=== PATIENT | male | born 1965 | race African-American/Black ===

== ENCOUNTER 2019-07-03 10:03 | Inpatient (IN) | payer MEDICARE, MEDICAID ==
[~2019-07-03] VITALS: Ht 167.6 cm; Wt 86.2 kg
--- NOTE | 2019-07-03 10:06 | NUR ---
ED Nurse Note: Pt arrived with RA 27. pt picked up from tian singh. pt c/o sternal CP radiating to left neck and right shoulder. pt was given of ASA en route and Nitro.
[2019-07-03 10:08] VITALS: BP 122/93
[2019-07-03] MEDS ORDERED: HYDROCHLOROTH12.5 MG ORAL (10:46)
[2019-07-03] MEDS ORDERED: FUROSEMIDE20 M1 ORAL (10:46)
--- NOTE | 2019-07-03 11:01 | Emergency Room Report ---
History of Present Illness General Chief Complaint: Chest Pain Source: Patient Present Illness HPI Patient presents with complaints of midsternal chest pain he was at the bus stop when the pain started Pain radiates to the neck bilaterally denies any shortness of breath denies any pleurisy Patient has had multiple hospitalizations for CHF and he does feel short of breath as well Denies any flank pain denies any recent travel denies any fevers or chills Allergies: Coded Allergies: SIMVASTATIN (Verified Allergy, Unknown, 07/03/19) Patient History Past Medical History: see triage record Reviewed Nursing Documentation: PMH: Agreed; PSxH: Agreed Nursing Documentation-PM Past Medical History: No History, Except For Hx Hypertension: Yes Hx COPD: Yes Review of Systems All Other Systems: negative except mentioned in HPI Physical Exam Vital Signs Date Time Temp Pulse Resp B/P (MAP) Pulse Ox O2 Delivery O2 Flow Rate FiO2 07/03/19 10:04 98.1 104 16 122/93 (103) 98 Room Air Sp02 EP Interpretation: reviewed, normal General Appearance: well appearing - Patient appears mildly short of breath Head: normocephalic, atraumatic Eyes: bilateral eye PERRL, bilateral eye EOMI ENT: hearing grossly normal, EOM grossly intact Neck: supple Respiratory: no retraction, no accessory muscle use, crackles - Bilaterally Cardiovascular #1: regular rate, rhythm Gastrointestinal: non tender, soft Musculoskeletal: normal inspection Neurologic: alert, oriented x3 Psychiatric: normal inspection Skin: other - Significant dependent edema bilaterally Lymphatic: no adenopathy Medical Decision Making Diagnostic Impression: Primary Impression: CHF (congestive heart failure) ER Course Patient is a fairly complex patient with multiple differential to consideration including but not limited to cardiac cardiopulmonary and vascular emergencies Patient's x-ray shows evidence of congestion and cardiomegaly further diuretics are provided Patient remains chest pain-free at this time however given the clinical exam discomfort in appearance And overall evaluation will require further inpatient care Labs Test 07/03/19 10:55 07/03/19 12:56 07/03/19 20:53 07/05/19 03:50 White Blood Count 5.7 K/UL (4.8-10.8) 4.8 K/UL (4.8-10.8) Red Blood Count 3.35 M/UL (4.70-6.10) 3.26 M/UL (4.70-6.10) Hemoglobin 10.6 G/DL (14.2-18.0) 10.4 G/DL (14.2-18.0) Hematocrit 32.6 % (42.0-52.0) 31.4 % (42.0-52.0) Mean Corpuscular Volume 97 FL (80-99) 96 FL (80-99) Mean Corpuscular Hemoglobin 31.7 PG (27.0-31.0) 31.7 PG (27.0-31.0) Mean Corpuscular Hemoglobin Concent 32.6 G/DL (32.0-36.0) 33.0 G/DL (32.0-36.0) Red Cell Distribution Width 14.6 % (11.6-14.8) 14.5 % (11.6-14.8) Platelet Count 122 K/UL (150-450) 114 K/UL (150-450) Mean Platelet Volume 8.6 FL (6.5-10.1) 7.5 FL (6.5-10.1) Neutrophils (%) (Auto) 67.7 % (45.0-75.0) 61.4 % (45.0-75.0) Lymphocytes (%) (Auto) 16.3 % (20.0-45.0) 24.0 % (20.0-45.0) Monocytes (%) (Auto) 12.0 % (1.0-10.0) 10.6 % (1.0-10.0) Eosinophils (%) (Auto) 2.1 % (0.0-3.0) 2.8 % (0.0-3.0) Basophils (%) (Auto) 1.9 % (0.0-2.0) 1.2 % (0.0-2.0) Sodium Level 141 MMOL/L (136-145) 141 MMOL/L (136-145) Potassium Level 3.8 MMOL/L (3.5-5.1) 4.2 MMOL/L (3.5-5.1) Chloride Level 103 MMOL/L (98-107) 103 MMOL/L (98-107) Carbon Dioxide Level 28 MMOL/L (21-32) 30 MMOL/L (21-32) Anion Gap 10 mmol/L (5-15) 8 mmol/L (5-15) Blood Urea Nitrogen 24 mg/dL (7-18) 24 mg/dL (7-18) Creatinine 1.5 MG/DL (0.55-1.30) 1.5 MG/DL (0.55-1.30) Estimat Glomerular Filtration Rate 59.5 mL/min (>60) 59.5 mL/min (>60) Glucose Level 144 MG/DL (74-106) 114 MG/DL (74-106) Calcium Level 8.2 MG/DL (8.5-10.1) 8.7 MG/DL (8.5-10.1) Total Bilirubin 0.4 MG/DL (0.2-1.0) Aspartate Amino Transf (AST/SGOT) 35 U/L (15-37) Alanine Aminotransferase (ALT/SGPT) 24 U/L (12-78) Alkaline Phosphatase 92 U/L (46-116) Total Creatine Kinase 296 U/L (26-308) Troponin I 0.032 ng/mL (0.000-0.056) 0.044 ng/mL (0.000-0.056) Pro-B-Type Natriuretic Peptide 3309 pg/mL (0-125) 2105 pg/mL (0-125) Total Protein 7.4 G/DL (6.4-8.2) Albumin 3.2 G/DL (3.4-5.0) Globulin 4.2 g/dL Albumin/Globulin Ratio 0.8 (1.0-2.7) Lipase 163 U/L (73-393) Urine Opiates Screen Negative (NEGATIVE) Urine Barbiturates Screen Negative (NEGATIVE) Phencyclidine (PCP) Screen Negative (NEGATIVE) Urine Amphetamines Screen Negative (NEGATIVE) Urine Benzodiazepines Screen Negative (NEGATIVE) Urine Cocaine Screen Negative (NEGATIVE) Urine Marijuana (THC) Screen Negative (NEGATIVE) Test 07/05/19 11:15 Hemoglobin A1c 6.6 % (4.3-6.0) Uric Acid 9.7 MG/DL (2.6-7.2) Phosphorus Level 3.9 MG/DL (2.5-4.9) Magnesium Level 1.5 MG/DL (1.8-2.4) Gamma Glutamyl Transpeptidase 62 U/L (5-85) C-Reactive Protein, Quantitative 1.5 mg/dL (0.00-0.90) Pro-B-Type Natriuretic Peptide 2106 pg/mL (0-125) Triglycerides Level 17 MG/DL (30-150) Cholesterol Level 141 MG/DL (< 200) LDL Cholesterol 81 mg/dL (<100) HDL Cholesterol 57 MG/DL (40-60) Cholesterol/HDL Ratio 2.5 (3.3-4.4) Vitamin B12 Level 838 PG/ML (193-986) Folate 16.2 NG/ML (8.6-58.9) Thyroid Stimulating Hormone (TSH) 2.919 uiU/mL (0.358-3.740) EKG Diagnostic Results Rate: normal Rhythm: NSR ST Segments: other - Nonspecific ST and T wave changes Rhythm Strip Diag. Results EP Interpretation: yes Rate: 88 Rhythm: NSR, no PVC's, no ectopy Chest X-Ray Diagnostic Results Chest X-Ray Diagnostic Results : Chest X-Ray Ordered: Yes # of Views/Limited/Complete: 1 View Indication: Chest Pain EP Interpretation: Yes Interpretation: no consolidation, no effusion, no pneumothorax, other - Cardiomegaly pulmonary congestion Impression: Other - Acute CHF Electronically Signed by: Felisa Sharif DO Last Vital Signs Date Time Temp Pulse Resp B/P (MAP) Pulse Ox O2 Delivery O2 Flow Rate FiO2 07/03/19 10:08 104 16 Room Air 07/03/19 10:08 98.1 122/93 98 Status: improved Disposition: ADMITTED INPATIENT Condition: Serious Felisa Sharif DO Jul 03, 2019 11:01
[2019-07-03 11:30] LABS: BASOPHILS % (AUTO) 1.9 % (0.0-2.0); EOSINOPHILS % (AUTO) 2.1 % (0.0-3.0); HEMATOCRIT 32.6 % (42.0-52.0); HEMOGLOBIN 10.6 G/DL (14.2-18.0); LYMPHOCYTES % (AUTO) 16.3 % (20.0-45.0); MEAN CORPUSCULAR VOLUME 97 FL (80-99); NEUTROPHILS % (AUTO) 67.7 % (45.0-75.0); PLATELET COUNT 122 K/UL (150-450); RED BLOOD COUNT 3.35 M/UL (4.70-6.10); RED CELL DISTRIBUTION WIDTH 14.6 % (11.6-14.8); WHITE BLOOD COUNT 5.7 K/UL (4.8-10.8)
[2019-07-03] MEDS ORDERED: Morphine Sulfate 2mg/ml Inj(IV/IM USE ONLY) IVP ONE (11:30)
--- NOTE | 2019-07-03 11:30 | NUR ---
ED Nurse Note: PT GIVEN URINAL BOTTLE
[2019-07-03 11:38] LABS: ANION GAP 10 mmol/L (5-15); BLOOD UREA NITROGEN 24 mg/dL (7-18); CALCIUM 8.2 MG/DL (8.5-10.1); CARBON DIOXIDE 28 MMOL/L (21-32); CHLORIDE 103 MMOL/L (98-107); CREATININE 1.5 MG/DL (0.55-1.30); POTASSIUM 3.8 MMOL/L (3.5-5.1); SODIUM 141 MMOL/L (136-145)
[2019-07-03 11:47] LABS: ALANINE AMINOTRANSFERASE 24 U/L (12-78); ALBUMIN 3.2 G/DL (3.4-5.0); ALBUMIN/GLOBULIN RATIO 0.8 (1.0-2.7); ALKALINE PHOSPHATASE 92 U/L (46-116); ASPARTATE AMINO TRANSFERASE 35 U/L (15-37); BILIRUBIN,TOTAL 0.4 MG/DL (0.2-1.0); CREATINE KINASE 296 U/L (26-308)
[2019-07-03 12:20] VITALS: BP 111/80
--- NOTE | 2019-07-03 13:01 | NUR ---
ED Nurse Note: urine sent to lab
--- NOTE | 2019-07-03 13:01 | NUR ---
Elena montejo in EDM - 07/03/19 at 1301 by YOEL ED Nurse Note: urine sent to lab
[2019-07-03 13:11] VITALS: BP 106/73
--- NOTE | 2019-07-03 13:40 | NUR ---
ED Nurse Note: PT RESTING IN BED COMFORTBALY; PT ON HIS PHONE LISTENING TO MUSIC WITH HEAD PHONES
--- NOTE | 2019-07-03 15:00 | NUR ---
ED Nurse Note: Pt in bed asleep, pt appears comfortable. vss. nad noted
--- NOTE | 2019-07-03 15:09 | Diagnostic Imaging Report ---
Indication: Chest pain Technique: One view of the chest Comparison: 06/18/2014 Findings: The heart is markedly enlarged, more so than on the prior study. There is borderline pulmonary venous congestion. No dc pulmonary edema. A band of atelectasis is seen in the left midlung. No definite effusions. Impression: Marked cardiomegaly Borderline pulmonary venous congestion
[2019-07-03] MEDS ORDERED: Morphine Sulfate 4mg/ml Inj (IV USE ONLY) ONE (15:34)
[2019-07-03] MEDS ORDERED: Morphine Sulfate 4mg/ml Inj (IV USE ONLY) IVP ONE (15:45)
[2019-07-03 16:12] VITALS: BP 105/80
--- NOTE | 2019-07-03 17:40 | NUR ---
NURSE NOTES: Received telephone report from Dorita RINALDI.
--- NOTE | 2019-07-03 17:41 | NUR ---
ED Nurse Note: telephone report given to tiesha rn for continuity of care
--- NOTE | 2019-07-03 18:15 | NUR ---
TRANSFER TO FLOOR: Patient transferred to TELE OVER FLOW as ordered, per ERMD ORDER . Report given to GENTRY SILVA. Belongings and medications given to GENTRY SILVA.
--- NOTE | 2019-07-03 19:15 | NUR ---
NURSE NOTES: received pt from GENTRY Gann. pt is observed sitting on edge of bed, AO X4, c/o chest pain at this time. will contact MD regarding chest pain. pt is on room air, no s/sx of respiratory distress noted. correspondence transcriber shows SR with 98. urinal at bedside. pitting edema noted on bilateral lower extremities. RFA 18 g IV site is patent and intact, asymptomatic. bed in lowest position and brakes engaged, siderails up X2, call light within reach. will continue to monitor.
--- NOTE | 2019-07-03 19:16 | NUR ---
HAND-OFF: Report given to Renae RINALDI. Pt. remain stable.
--- NOTE | 2019-07-03 19:18 | NUR ---
NURSE NOTES: Called Dr. Blair regarding pt. requesting Morphine for his CP. Left message awaiting for response.
--- NOTE | 2019-07-03 19:50 | NUR ---
NURSE NOTES: left message for Dr. Fitzpatrick regarding pt's complaint of chest pain. awaiting call back.
[2019-07-03 20:00] VITALS: BP 137/83
--- NOTE | 2019-07-03 20:10 | NUR ---
NURSE NOTES: received orders from Dr. Fitzpatrick; will carry out.
--- NOTE | 2019-07-03 20:36 | Cardiology Progress Note ---
Assessment/Plan Assessment/Plan The patient is seen and examined, full consult note will dictated. Objective Last 24 Hour Vital Signs Date Time Temp Pulse Resp B/P (MAP) Pulse Ox O2 Delivery O2 Flow Rate FiO2 07/03/19 18:48 101 07/03/19 18:36 Room Air 07/03/19 18:24 98.3 84 21 106/61 100 Room Air 07/03/19 16:12 98.3 95 25 105/80 99 Room Air 07/03/19 16:04 98.3 07/03/19 13:11 98.3 106 22 106/73 99 Room Air 07/03/19 12:20 98.1 88 16 111/80 100 Room Air 07/03/19 11:51 98.1 07/03/19 10:08 104 16 Room Air 07/03/19 10:08 98.1 104 16 122/93 98 Room Air 07/03/19 10:04 98.1 104 16 122/93 (103) 98 Room Air Laboratory Tests Test 07/03/19 10:55 07/03/19 12:56 White Blood Count 5.7 K/UL (4.8-10.8) Red Blood Count 3.35 M/UL (4.70-6.10) L Hemoglobin 10.6 G/DL (14.2-18.0) L Hematocrit 32.6 % (42.0-52.0) L Mean Corpuscular Volume 97 FL (80-99) Mean Corpuscular Hemoglobin 31.7 PG (27.0-31.0) H Mean Corpuscular Hemoglobin Concent 32.6 G/DL (32.0-36.0) Red Cell Distribution Width 14.6 % (11.6-14.8) Platelet Count 122 K/UL (150-450) L Mean Platelet Volume 8.6 FL (6.5-10.1) Neutrophils (%) (Auto) 67.7 % (45.0-75.0) Lymphocytes (%) (Auto) 16.3 % (20.0-45.0) L Monocytes (%) (Auto) 12.0 % (1.0-10.0) H Eosinophils (%) (Auto) 2.1 % (0.0-3.0) Basophils (%) (Auto) 1.9 % (0.0-2.0) Sodium Level 141 MMOL/L (136-145) Potassium Level 3.8 MMOL/L (3.5-5.1) Chloride Level 103 MMOL/L (98-107) Carbon Dioxide Level 28 MMOL/L (21-32) Anion Gap 10 mmol/L (5-15) Blood Urea Nitrogen 24 mg/dL (7-18) H Creatinine 1.5 MG/DL (0.55-1.30) H Estimat Glomerular Filtration Rate 59.5 mL/min (>60) Glucose Level 144 MG/DL (74-106) H Calcium Level 8.2 MG/DL (8.5-10.1) L Total Bilirubin 0.4 MG/DL (0.2-1.0) Aspartate Amino Transf (AST/SGOT) 35 U/L (15-37) Alanine Aminotransferase (ALT/SGPT) 24 U/L (12-78) Alkaline Phosphatase 92 U/L (46-116) Total Creatine Kinase 296 U/L (26-308) Troponin I 0.032 ng/mL (0.000-0.056) Pro-B-Type Natriuretic Peptide 3309 pg/mL (0-125) H Total Protein 7.4 G/DL (6.4-8.2) Albumin 3.2 G/DL (3.4-5.0) L Globulin 4.2 g/dL Albumin/Globulin Ratio 0.8 (1.0-2.7) L Lipase 163 U/L (73-393) Urine Opiates Screen Negative (NEGATIVE) Urine Barbiturates Screen Negative (NEGATIVE) Phencyclidine (PCP) Screen Negative (NEGATIVE) Urine Amphetamines Screen Negative (NEGATIVE) Urine Benzodiazepines Screen Negative (NEGATIVE) Urine Cocaine Screen Negative (NEGATIVE) Urine Marijuana (THC) Screen Negative (NEGATIVE) Spenser Fitzpatrick MD Jul 03, 2019 20:36
--- NOTE | 2019-07-03 20:45 | NUR ---
NURSE NOTES: Dr. Fitzpatrick at bedside; reported pt's complaint of chest pain.
--- NOTE | 2019-07-03 22:00 | NUR ---
NURSE NOTES: informed Dr. Fitzpatrick of pt's current troponin level of 0.044. awaiting call back.
--- NOTE | 2019-07-03 22:04 | NUR ---
NURSE NOTES: called and left message for Dr. Renteria regarding pt's complaint of leg pain. awaiting call back.
--- NOTE | 2019-07-03 22:24 | NUR ---
NURSE NOTES: left follow up message for Dr. Renteria regarding pt's complaint of leg pain. awaiting call back.
--- NOTE | 2019-07-03 22:58 | NUR ---
NURSE NOTES: received call back with new orders from Dr. Renteria. will carry out.
[2019-07-03] MEDS: Morphine Sulfate 2mg/ml Inj(IV/IM USE ONLY) IVP PRN (23:47)
[2019-07-04] VITALS: BP 120/76
--- NOTE | 2019-07-04 00:30 | NUR ---
NURSE NOTES: pt advised to remain in bed d/t administration of morphine as ordered per MD. pt remains non-compliant, and continues to sit at edge of bed. placed bedside table by edge of bed. bed remains in lowest position and locked, siderails up X3, call light within reach. will continue to monitor closely.
--- NOTE | 2019-07-04 00:40 | NUR ---
NURSE NOTES: Dr. Fitzpatrick aware of pt's current troponin level. no new orders given at this time. will continue to monitor.
[2019-07-04 04:00] VITALS: BP 118/77
--- NOTE | 2019-07-04 06:30 | History and Physical Report ---
DATE OF ADMISSION: 07/03/2019 HISTORY OF PRESENT ILLNESS: The patient is being admitted for chest pain, rule out pulmonary edema, congestion, and cardiomegaly on the chest x-ray, borderline elevated troponin. The patient has been complaining of chest pain for one day, admitted for CHF exacerbation, possibly. The patient also complains of neck pain, headache, and pain all over. The patient complains of shortness of breath . The patient states that he has Graves disease. PAST MEDICAL HISTORY: Graves disease, CHF, history of hypertension, history of arthritis, and history of hyperlipidemia. ALLERGIES: To simvastatin. PAST SURGICAL HISTORY: Eye surgery and sinus surgery. SOCIAL HISTORY: History of smoking. History of marijuana use. Denies history of alcohol abuse. MEDICATIONS: Lasix. FAMILY HISTORY: Noncontributory. REVIEW OF SYSTEMS: HEENT: Reports headaches. RESPIRATORY: Reports shortness of breath. Denies cough. CARDIOVASCULAR: Reports chest pain for one day. No radiation. No orthopnea. GASTROINTESTINAL: Denies nausea, vomiting, or diarrhea. EXTREMITIES: Reports pain all over. CENTRAL NERVOUS SYSTEM: Denies change in speech pattern. Feels weak. PHYSICAL EXAMINATION: VITAL SIGNS: Temperature is 98.3, pulse is 95, and blood pressure is 105/80. HEENT: PERRLA. NECK: Supple. No lymphadenopathy. CHEST: Clear to auscultation. The patient has conjunctivae. CARDIOVASCULAR: Regular rate and rhythm. No murmurs or extra sounds. GASTROINTESTINAL: Soft, nontender, nondistended. No organomegaly. EXTREMITIES: No edema. Moves all four extremities. NEUROLOGIC: Sensory intact to touch. Reflexes equal on both sides. LABORATORY DATA: WBC of 5.7, hemoglobin 10.6, and platelets 122,000. Sodium 141, potassium 3.8, BUN of 24, creatinine of 0.5, glucose of 144. Troponin of 0.032. ASSESSMENT AND PLAN: 1. Chest pain. 2. CHF. 3. Azotemia. 4. Borderline elevated troponin. 5. Congestion and cardiomegaly on the chest examination, rule out pulmonary edema, CHF exacerbation. I have basically consulted Dr. Renteria, Dr. Cody, Dr. Baca, and Dr. Fitzpatrick to help with the fluid management as well as for CHF management as well as for management of the chest pain, rule out acute coronary syndrome. Pain management per Dr. Renteria. Felisa Blair M.D. DR: KIMBERLEY JOB#: [id number] CC:
--- NOTE | 2019-07-04 07:08 | NUR ---
NURSE NOTES: RECEIVED BED SIDE REPORT FROM PADMINI RINALDI STAFF OF [employer]. PT C/O,S OF BILAT LOWER EXT,S PAIN. PT RATING 7/10 BILATERALLY LOWER LEG PAIN.PADMINI RINALDI MEDICATED THE PT WITH MORPHINE SULFATE 2MG IVP PER M.D ORDERS.FULL BODY ASSESSMENT DONE.PT USING O2 @ 2L/MINTS VIA N/C,O2 SAT 98%. WILL CONT TO MONITOR.
[2019-07-04] MEDS: Morphine Sulfate 2mg/ml Inj(IV/IM USE ONLY) IVP PRN (07:13)
--- NOTE | 2019-07-04 07:38 | NUR ---
HAND-OFF: Report given to Elle Holm RN. pt is in stable condition.
[2019-07-04 08:00] VITALS: BP 119/81
[2019-07-04] MEDS: Spironolactone 25mg tab ORAL SCH (09:31)
--- NOTE | 2019-07-04 09:46 | Consultation ---
History of Present Illness General Date patient seen: Jul 04, 2019 Time patient seen: 09:15 - am Chief Complaint: B/L LE pain Referring physician: Johnnie Reason for Consultation: Pain Management Present Illness HPI Patient reports that he has been having leg pain for many years and has a medical history of CHF and swelling in his legs c/o numbness and tingling in his legs for the last 2 years it is a 8/10 pain at this time. Was started on Morphine 2mg IV Q4H PRN. We were consulted so patient has adequate pain control while here in the hospital. Allergies: Coded Allergies: SIMVASTATIN (Verified Allergy, Unknown, 07/03/19) Medication History Scheduled Furosemide* (Lasix*), Unknown Dose ORAL DAILY, (Reported) Hydrochlorothiazide* (Hydrochlorothiazide*), Unknown Dose ORAL DAILY, (Reported) Patient History Healthcare decision maker N Resuscitation status Full Code Advanced Directive on File Past Medical/Surgical History Past Medical/Surgical History: (1) SOB (shortness of breath) (2) HTN (hypertension) (3) CHF (congestive heart failure) (4) Pneumonia (5) Acute respiratory failure Review of Systems Constitutional: Reports: weakness Eye: Reports: no symptoms ENT: Reports: no symptoms Respiratory: Reports: no symptoms Cardiovascular: Reports: no symptoms Gastrointestinal: Reports: no symptoms Genitourinary: Reports: no symptoms Musculoskeletal: Reports: no symptoms Skin: Reports: no symptoms Psychiatric: Reports: no symptoms Neurological: Reports: no symptoms Endocrine: Reports: no symptoms Hematologic/Lymphatic: Reports: no symptoms Physical Exam General Appearance: no apparent distress, alert HEENT: normocephalic, PERRL, EOMI Neck: non-tender, supple Respiratory/Chest: decreased breath sounds Cardiovascular/Chest: regularly irregular Abdomen: non tender, soft Extremities: moderate edema Skin Exam: warm/dry Neurologic: alert, oriented x 3 Last 24 Hour Vital Signs Date Time Temp Pulse Resp B/P (MAP) Pulse Ox O2 Delivery O2 Flow Rate FiO2 07/04/19 09:31 103 119/81 07/04/19 08:00 103 07/04/19 08:00 97.7 95 20 119/81 (94) 98 95 07/04/19 08:00 2.0 07/04/19 07:43 97.8 07/04/19 04:00 97.8 93 20 118/77 (91) 100 07/04/19 04:00 97 07/04/19 04:00 2.0 07/04/19 00:00 98.4 94 20 120/76 (91) 100 07/03/19 23:32 103 07/03/19 21:01 93 137/83 07/03/19 21:00 2.0 07/03/19 21:00 Nasal Cannula 2.0 07/03/19 20:00 93 07/03/19 20:00 97.5 98 137/83 (101) 07/03/19 18:48 101 07/03/19 18:36 Room Air 07/03/19 18:24 98.3 84 21 106/61 100 Room Air 07/03/19 16:12 98.3 95 25 105/80 99 Room Air 07/03/19 16:04 98.3 07/03/19 13:11 98.3 106 22 106/73 99 Room Air 07/03/19 12:20 98.1 88 16 111/80 100 Room Air 07/03/19 11:51 98.1 07/03/19 10:08 104 16 Room Air 07/03/19 10:08 98.1 104 16 122/93 98 Room Air 07/03/19 10:04 98.1 104 16 122/93 (103) 98 Room Air Intake and Output 07/03/19 07/04/19 19:00 07:00 Intake Total 720 ml Output Total 0 ml 350 ml Balance 0 ml 370 ml Intake Oral 720 ml Output Urine Total 0 ml 350 ml Laboratory Tests Test 07/03/19 10:55 07/03/19 12:56 07/03/19 20:53 White Blood Count 5.7 K/UL (4.8-10.8) Red Blood Count 3.35 M/UL (4.70-6.10) L Hemoglobin 10.6 G/DL (14.2-18.0) L Hematocrit 32.6 % (42.0-52.0) L Mean Corpuscular Volume 97 FL (80-99) Mean Corpuscular Hemoglobin 31.7 PG (27.0-31.0) H Mean Corpuscular Hemoglobin Concent 32.6 G/DL (32.0-36.0) Red Cell Distribution Width 14.6 % (11.6-14.8) Platelet Count 122 K/UL (150-450) L Mean Platelet Volume 8.6 FL (6.5-10.1) Neutrophils (%) (Auto) 67.7 % (45.0-75.0) Lymphocytes (%) (Auto) 16.3 % (20.0-45.0) L Monocytes (%) (Auto) 12.0 % (1.0-10.0) H Eosinophils (%) (Auto) 2.1 % (0.0-3.0) Basophils (%) (Auto) 1.9 % (0.0-2.0) Sodium Level 141 MMOL/L (136-145) Potassium Level 3.8 MMOL/L (3.5-5.1) Chloride Level 103 MMOL/L (98-107) Carbon Dioxide Level 28 MMOL/L (21-32) Anion Gap 10 mmol/L (5-15) Blood Urea Nitrogen 24 mg/dL (7-18) H Creatinine 1.5 MG/DL (0.55-1.30) H Estimat Glomerular Filtration Rate 59.5 mL/min (>60) Glucose Level 144 MG/DL (74-106) H Calcium Level 8.2 MG/DL (8.5-10.1) L Total Bilirubin 0.4 MG/DL (0.2-1.0) Aspartate Amino Transf (AST/SGOT) 35 U/L (15-37) Alanine Aminotransferase (ALT/SGPT) 24 U/L (12-78) Alkaline Phosphatase 92 U/L (46-116) Total Creatine Kinase 296 U/L (26-308) Troponin I 0.032 ng/mL (0.000-0.056) 0.044 ng/mL (0.000-0.056) Pro-B-Type Natriuretic Peptide 3309 pg/mL (0-125) H Total Protein 7.4 G/DL (6.4-8.2) Albumin 3.2 G/DL (3.4-5.0) L Globulin 4.2 g/dL Albumin/Globulin Ratio 0.8 (1.0-2.7) L Lipase 163 U/L (73-393) Urine Opiates Screen Negative (NEGATIVE) Urine Barbiturates Screen Negative (NEGATIVE) Phencyclidine (PCP) Screen Negative (NEGATIVE) Urine Amphetamines Screen Negative (NEGATIVE) Urine Benzodiazepines Screen Negative (NEGATIVE) Urine Cocaine Screen Negative (NEGATIVE) Urine Marijuana (THC) Screen Negative (NEGATIVE) Height (Feet): 5 Height (Inches): 6.00 Weight (Pounds): 190 Medications Current Medications Medications (Trade) Dose Ordered Sig/Marybeth Route PRN Reason Start Time Stop Time Status Last Admin Dose Admin Carvedilol (Coreg) 3.125 mg EVERY 12 HOURS ORAL 07/03/19 21:00 08/02/19 20:59 07/04/19 09:31 Furosemide (Lasix) 40 mg BID IV 07/04/19 18:00 08/03/19 08:59 Morphine Sulfate (Morphine Sulfate) 2 mg Q4H PRN IVP For Pain 07/03/19 23:00 07/10/19 22:59 07/04/19 07:13 Spironolactone (Aldactone) 25 mg DAILY ORAL 07/04/19 09:00 08/03/19 08:59 07/04/19 09:31 Assessment/Plan Assessment/Plan: (1) Peripheral Neuropathy (2) Peripheral Vascular disease Patient will be continued on Morphine We will start patient on Neurontin 100TID and Lidocaine cream D/w Dr. Renteria and he concurred. Tremayne Fenton Jul 04, 2019 09:46
--- NOTE | 2019-07-04 09:54 | NUR ---
NURSE NOTES:PT HAD 13 BEATS OF V-TACH .PT DENIES CP OR ANY DISCOMFORT AT THIS TIME.DR VALENTE AT [facility] MADE AWARE AND NOTIFIED REGARDING PT HAD 13 BEATS V-TACH.DR VALENTE CAME TO SEE THE PT AND REVIEW THE CARDIAC RHYTHMS STRIPS .M.D ORDER 2-D-ECHO PROCEDURE AND BILAT LOWER EXT,S DUPLEX STUDY. WILL CONT TO MONITOR.
--- NOTE | 2019-07-04 10:45 | Cardiac Electrophysiology PN ---
Subjective Subjective 13 beats of [place] [id number] Objective Last 24 Hour Vital Signs Date Time Temp Pulse Resp B/P (MAP) Pulse Ox O2 Delivery O2 Flow Rate FiO2 07/04/19 09:31 103 119/81 07/04/19 08:00 103 07/04/19 08:00 97.7 95 20 119/81 (94) 98 95 07/04/19 08:00 2.0 07/04/19 07:43 97.8 07/04/19 04:00 97.8 93 20 118/77 (91) 100 07/04/19 04:00 97 07/04/19 04:00 2.0 07/04/19 00:00 98.4 94 20 120/76 (91) 100 07/03/19 23:32 103 07/03/19 21:01 93 137/83 07/03/19 21:00 2.0 07/03/19 21:00 Nasal Cannula 2.0 07/03/19 20:00 93 07/03/19 20:00 97.5 98 137/83 (101) 07/03/19 18:48 101 07/03/19 18:36 Room Air 07/03/19 18:24 98.3 84 21 106/61 100 Room Air 07/03/19 16:12 98.3 95 25 105/80 99 Room Air 07/03/19 16:04 98.3 07/03/19 13:11 98.3 106 22 106/73 99 Room Air 07/03/19 12:20 98.1 88 16 111/80 100 Room Air 07/03/19 11:51 98.1 Intake and Output 07/03/19 07/04/19 19:00 07:00 Intake Total 720 ml Output Total 0 ml 350 ml Balance 0 ml 370 ml Intake Oral 720 ml Output Urine Total 0 ml 350 ml Laboratory Tests Test 07/03/19 10:55 07/03/19 12:56 07/03/19 20:53 White Blood Count 5.7 K/UL (4.8-10.8) Red Blood Count 3.35 M/UL (4.70-6.10) L Hemoglobin 10.6 G/DL (14.2-18.0) L Hematocrit 32.6 % (42.0-52.0) L Mean Corpuscular Volume 97 FL (80-99) Mean Corpuscular Hemoglobin 31.7 PG (27.0-31.0) H Mean Corpuscular Hemoglobin Concent 32.6 G/DL (32.0-36.0) Red Cell Distribution Width 14.6 % (11.6-14.8) Platelet Count 122 K/UL (150-450) L Mean Platelet Volume 8.6 FL (6.5-10.1) Neutrophils (%) (Auto) 67.7 % (45.0-75.0) Lymphocytes (%) (Auto) 16.3 % (20.0-45.0) L Monocytes (%) (Auto) 12.0 % (1.0-10.0) H Eosinophils (%) (Auto) 2.1 % (0.0-3.0) Basophils (%) (Auto) 1.9 % (0.0-2.0) Sodium Level 141 MMOL/L (136-145) Potassium Level 3.8 MMOL/L (3.5-5.1) Chloride Level 103 MMOL/L (98-107) Carbon Dioxide Level 28 MMOL/L (21-32) Anion Gap 10 mmol/L (5-15) Blood Urea Nitrogen 24 mg/dL (7-18) H Creatinine 1.5 MG/DL (0.55-1.30) H Estimat Glomerular Filtration Rate 59.5 mL/min (>60) Glucose Level 144 MG/DL (74-106) H Calcium Level 8.2 MG/DL (8.5-10.1) L Total Bilirubin 0.4 MG/DL (0.2-1.0) Aspartate Amino Transf (AST/SGOT) 35 U/L (15-37) Alanine Aminotransferase (ALT/SGPT) 24 U/L (12-78) Alkaline Phosphatase 92 U/L (46-116) Total Creatine Kinase 296 U/L (26-308) Troponin I 0.032 ng/mL (0.000-0.056) 0.044 ng/mL (0.000-0.056) Pro-B-Type Natriuretic Peptide 3309 pg/mL (0-125) H Total Protein 7.4 G/DL (6.4-8.2) Albumin 3.2 G/DL (3.4-5.0) L Globulin 4.2 g/dL Albumin/Globulin Ratio 0.8 (1.0-2.7) L Lipase 163 U/L (73-393) Urine Opiates Screen Negative (NEGATIVE) Urine Barbiturates Screen Negative (NEGATIVE) Phencyclidine (PCP) Screen Negative (NEGATIVE) Urine Amphetamines Screen Negative (NEGATIVE) Urine Benzodiazepines Screen Negative (NEGATIVE) Urine Cocaine Screen Negative (NEGATIVE) Urine Marijuana (THC) Screen Negative (NEGATIVE) Spenser Kimble MD Jul 04, 2019 10:45
[2019-07-04 12:00] VITALS: BP 135/75
--- NOTE | 2019-07-04 14:37 | NUR ---
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 98.1 HR 104 RR 16 B/P 122/92 BUN 24 CR 1.5 BNP 3309 CXR=: Marked cardiomegaly IS: LASIX IV MORPHINE IV ADMITTED TO STEP DOWN @ 1815 STEP DOWN STATUS
[2019-07-04 16:00] VITALS: BP_SYST 101; BP_SYST 106; BP_DIAS 66; BP_DIAS 70
--- NOTE | 2019-07-04 16:15 | Consultation ---
DATE OF CONSULTATION: 07/04/2019 PULMONARY CONSULTATION CONSULTING PHYSICIAN: Frank Baca M.D. HISTORY OF PRESENT ILLNESS: This is a 53-year-old male with a history of CHF. He came to the hospital with chest pain. The patient reports chest pain going up to the jaw. He is saying he has been hospitalized multiple times for CHF and he feels chronically short of breath. ALLERGIES: To simvastatin. PAST MEDICAL HISTORY: CHF, hypertension, COPD. HOME MEDICATIONS: Reviewed and reconciled in the chart. REVIEW OF SYSTEMS: Denies any headaches, hematemesis, melena, or hematochezia. PHYSICAL EXAMINATION: GENERAL: Reveals a 53-year-old male. HEENT: Unremarkable. CHEST: Clear breath sounds bilaterally with normal heart sounds. ABDOMEN: Soft. EXTREMITIES: There is 1+ edema. VITAL SIGNS: Blood pressure 120/90, heart rate 104, respirations , afebrile. LABORATORY DATA: Lab testing shows hemoglobin 10.2, otherwise normal CBC and BMP. Creatinine 1.5. Troponin 0.03 and 0.04. X-ray chest obtained overnight shows cardiomegaly and venous congestion. IMPRESSION: 1. Pulmonary edema/CHF. 2. Hypertension. DISCUSSION: Admit to the hospital. The patient needs to be diuresed. His echocardiogram shows low EF. I will follow as sensory scientist. Cardiac evaluation noted. We will follow. Frank Baca M.D. DR: CARYN JOB#: [id number] CC:
--- NOTE | 2019-07-04 16:30 | Consultation ---
DATE OF CONSULTATION: 07/04/2019 CARDIAC ELECTROPHYSIOLOGY CONSULTATION CONSULTING PHYSICIAN: Spenser Kimble M.D. REFERRING PHYSICIAN: Felisa Blair M.D. REASON FOR CONSULTATION: Thirteen beats of ventricular tachycardia in a patient with history of cardiomyopathy. HISTORY OF PRESENT ILLNESS: The patient is a 53-year-old gentleman with history of hypertension, cardiomyopathy, and multiple hospitalizations for congestive heart failure who was admitted to the hospital for increasing shortness of breath and midsternal chest pain. He apparently was at bus stop when he started having the pain radiation to the back. On the telemetry floor, the patient was having runs of nonsustained ventricular tachycardia up to 13 beats. Cardiac electrophysiology consultation was requested for further evaluation and management. REVIEW OF SYSTEMS: Negative other than what was mentioned in history of present illness. FAMILY HISTORY: Noncontributory. SOCIAL HISTORY: Has history of smoking and marijuana use. Denies alcohol or substance use. PHYSICAL EXAMINATION: VITAL SIGNS: Show blood pressure of 119/81, pulse is 100, respirations 18. HEAD AND NECK: Showed positive JVD. LUNGS: Decreased breath sounds. CARDIOVASCULAR: Regular S1 and S2 with no gallop. ABDOMEN: Soft. EXTREMITIES: 2+ pitting edema. LABORATORY AND DIAGNOSTIC DATA: His labs show white count of 5.7, hemoglobin of 10.3, hematocrit 32.6, and platelet count of 122. Sodium is 141, potassium 3.8, BUN of 20, creatinine 1.5, and glucose of 144. Troponin is negative x2. ASSESSMENT AND PLAN: 1. Nonsustained ventricular tachycardia of 13 beats. The patient already ruled out for myocardial infarction. His urine toxicology screen is negative. We will get an echocardiogram to evaluate for ejection fraction and wall motion abnormality. 2. Cardiomyopathy. I am not sure if it is ischemic or nonischemic. The patient is on Coreg 3.125 mg b.i.d., Lasix 40 mg IV b.i.d., and Aldactone 25 mg daily. We will add lisinopril to his medical regimen and watch his creatinine. 3. Hypertension. Continue current heart failure therapy. Thank you very much for allowing me to participate in the care of this patient. Please do not hesitate to contact me for any questions regarding my evaluation. Spenser Kimble M.D. DR: LORENA JOB#: [id number] CC:
--- NOTE | 2019-07-04 17:16 | Diagnostic Imaging Report ---
. Indication: Pain and edema in both legs Technique: Hazy and duplex images of the bilateral lower extremity veins Comparison: none Findings: Bilaterally, grayscale and duplex images demonstrate no evidence of intraluminal thrombus. Normal phasic Doppler waveforms, demonstrating normal augmentation response and no evidence of valvular insufficiency. Patent greater saphenous veins and tibial veins. Normal compressibility. Impression: Negative for evidence of deep venous thrombosis bilaterally
--- NOTE | 2019-07-04 19:15 | NUR ---
HAND-OFF: Report given to JOSE HUMMEL.
--- NOTE | 2019-07-04 19:44 | NUR ---
NURSE NOTES: Received report from GENTRY Garay. The patient is observed resting on the bed. Pt remains alert and oriented x3-4, currently denies pain. Pt remains SR on tele monitor with no s/sx of cardiac distress. Pt is on 2L NC with an O2 saturation of 99% noted and no s/sx of distress. Pt denies SOB at this time. Bilateral lower extremity edema noted otherwise skin remains intact. R FA 18g IV catheter noted which remains asymptomatic, intact and patent. Pt able to ambulate but encouraged to use call light. Pt remains resting in bed; bed remains in lowest position with safety wheels engaged, side rails up x3, call light within reach and bed alarm activated. Diagnostics and lab results reviewed. Will continue plan of care. Will continue to monitor.
[2019-07-04 20:00] VITALS: BP 110/76
--- NOTE | 2019-07-04 21:17 | General Progress Note ---
Assessment/Plan Problem List: (1) SOB (shortness of breath) ICD Codes: R06.02 - Shortness of breath SNOMED: 458733059 (2) CHF (congestive heart failure) ICD Codes: I50.9 - Heart failure, unspecified SNOMED: 40204384 (3) Pneumonia ICD Codes: J18.9 - Pneumonia SNOMED: 348380526 (4) HTN (hypertension) ICD Codes: I10 - HTN (hypertension) SNOMED: 74846712 Status: progressing Assessment/Plan: afebrile nac sob chf resp insuff pna reviewed chart Subjective ROS Limited/Unobtainable: Yes Allergies: Coded Allergies: SIMVASTATIN (Verified Allergy, Unknown, 07/03/19) Objective Last 24 Hour Vital Signs Date Time Temp Pulse Resp B/P (MAP) Pulse Ox O2 Delivery O2 Flow Rate FiO2 07/04/19 20:00 99.5 99 20 110/76 (87) 100 97 07/04/19 20:00 2.0 07/04/19 16:00 2.0 07/04/19 16:00 97.3 97 20 101/66 (78) 95 97 07/04/19 16:00 97.9 78 20 106/70 (82) 94 94 07/04/19 16:00 96 07/04/19 12:00 2.0 07/04/19 12:00 97.5 100 20 135/75 (95) 99 99 07/04/19 09:31 103 119/81 07/04/19 09:00 Nasal Cannula 2.0 07/04/19 08:00 103 07/04/19 08:00 97.7 95 20 119/81 (94) 98 95 07/04/19 08:00 2.0 07/04/19 07:43 97.8 07/04/19 04:00 97.8 93 20 118/77 (91) 100 07/04/19 04:00 97 07/04/19 04:00 2.0 07/04/19 00:00 98.4 94 20 120/76 (91) 100 07/03/19 23:32 103 Intake and Output 07/03/19 07/04/19 19:00 07:00 Intake Total 720 ml Output Total 0 ml 350 ml Balance 0 ml 370 ml Intake Oral 720 ml Output Urine Total 0 ml 350 ml Height (Feet): 5 Height (Inches): 6.00 Weight (Pounds): 190 Cardiovascular: normal rate Respiratory/Chest: lungs clear Abdomen: soft Felisa Blair MD Jul 04, 2019 21:17
--- NOTE | 2019-07-04 22:12 | NUR ---
NURSE NOTES: Pt provided with materials for bed bath, oral care and provided with a linen change. Pt tolerated care well and performed care with minimal assistance. Pt remains resting in bed; bed remains in lowest position with safety wheels engaged, side rails up x3, call light within reach and bed alarm activated. Pt noted to be noncompliant, and continues to turn the bed alarm off by himself. Educated patient and reactivated bed alarm. Rounds made more frequently as patient is a fall risk.
--- NOTE | 2019-07-04 23:23 | NUR ---
NURSE NOTES: Pt refuses to use call light and found walking out of room again. Pt continues to turn bed alarm off by himself. Pt educated on safety risks and fall hazards. Pt escorted back to bed, gait remains unsteady. Frequent patient rounds made. Will continue to monitor and educate.
--- NOTE | 2019-07-04 23:35 | Cardiology Progress Note ---
Assessment/Plan Assessment/Plan 1. New onset dilated cardiomyopathy with severe LV systolic dysfunction and LVEF at 15%, drop of LVEF from 55% measured in 2015, require right and left heart cath to rule out CAD. The patient is refusing this test now and do not wish to be transferred out. He realizes the risk of his actions which may include . Dr. Blair outside sales account representative also notified. In the meantime we ll continue guideline recommended therapy for heart failure. 2. Severe pulmonary HTN due to left heart failure, continue diuretics. 3. MARGUERITE, probably cardiorenal syndrome. 4. Acute combined systolic and diastolic CHF. 5. Small pericardial effusion likely element of right heart failure. Subjective Subjective Sinus rhythm at rate of 99. Objective Last 24 Hour Vital Signs Date Time Temp Pulse Resp B/P (MAP) Pulse Ox O2 Delivery O2 Flow Rate FiO2 07/04/19 21:00 Nasal Cannula 2.0 07/04/19 20:00 99.5 99 20 110/76 (87) 100 97 07/04/19 20:00 2.0 07/04/19 19:02 101 07/04/19 16:00 2.0 07/04/19 16:00 97.3 97 20 101/66 (78) 95 97 07/04/19 16:00 97.9 78 20 106/70 (82) 94 94 07/04/19 16:00 96 07/04/19 12:00 2.0 07/04/19 12:00 97.5 100 20 135/75 (95) 99 99 07/04/19 09:31 103 119/81 07/04/19 09:00 Nasal Cannula 2.0 07/04/19 08:00 103 07/04/19 08:00 97.7 95 20 119/81 (94) 98 95 07/04/19 08:00 2.0 07/04/19 07:43 97.8 07/04/19 04:00 97.8 93 20 118/77 (91) 100 07/04/19 04:00 97 07/04/19 04:00 2.0 07/04/19 00:00 98.4 94 20 120/76 (91) 100 Intake and Output 07/03/19 07/04/19 19:00 07:00 Intake Total 720 ml Output Total 0 ml 350 ml Balance 0 ml 370 ml Intake Oral 720 ml Output Urine Total 0 ml 350 ml 2D Echo: DCM, LVEF 15%, Restricitve LV physio, Gloabl LV HK, RAP 15, RVSP 53, Mod MR Objective Head: normocephalic, atraumatic, bilateral eye PERRL, bilateral eye EOMI. Neck: JVP elevated at 10 cm, no carotid bruit. Respiratory: Bibasilar crackles Cardiovascular: regular rate, rhythm, normal S1S2, Tachycardia, no murmurs, gallops or rubs. Gastrointestinal: non tender, soft, non-distended, + BS, no HSM. Musculoskeletal: 2+ B/L LE edema Spenser Fitzpatrick MD Jul 04, 2019 23:35
[2019-07-05] VITALS: BP 104/64
[2019-07-05 04:00] VITALS: BP 114/74
[2019-07-05 05:26] LABS: BASOPHILS % (AUTO) 1.2 % (0.0-2.0); EOSINOPHILS % (AUTO) 2.8 % (0.0-3.0); HEMATOCRIT 31.4 % (42.0-52.0); HEMOGLOBIN 10.4 G/DL (14.2-18.0); MEAN CORPUSCULAR VOLUME 96 FL (80-99); MONOCYTES % (AUTO) 10.6 % (1.0-10.0); NEUTROPHILS % (AUTO) 61.4 % (45.0-75.0); PLATELET COUNT 114 K/UL (150-450); RED BLOOD COUNT 3.26 M/UL (4.70-6.10); RED CELL DISTRIBUTION WIDTH 14.5 % (11.6-14.8); WHITE BLOOD COUNT 4.8 K/UL (4.8-10.8)
[2019-07-05 05:34] LABS: ANION GAP 8 mmol/L (5-15); BLOOD UREA NITROGEN 24 mg/dL (7-18); CALCIUM 8.7 MG/DL (8.5-10.1); CARBON DIOXIDE 30 MMOL/L (21-32); CHLORIDE 103 MMOL/L (98-107); CREATININE 1.5 MG/DL (0.55-1.30); POTASSIUM 4.2 MMOL/L (3.5-5.1); SODIUM 141 MMOL/L (136-145)
--- NOTE | 2019-07-05 07:42 | NUR ---
INTER-FACILITY TRANSFER: Patient transferred to Tele, per Dr Blair. Report given to GENTRY Toribio. Patient transferred with valuables and medications. Belongings verified upon transfer.
[2019-07-05 08:00] VITALS: BP 111/75
[2019-07-05] MEDS: Spironolactone 25mg tab ORAL SCH (09:00)
--- NOTE | 2019-07-05 09:14 | General Progress Note ---
Assessment/Plan Assessment/Plan: (1) Peripheral Neuropathy (2) Peripheral Vascular disease Patient will be continued on Morphine, Neurontin and Lidocaine cream D/w Dr. Renteria and he concurred. Subjective Date patient seen: Jul 05, 2019 Time patient seen: 08:45 - am Allergies: Coded Allergies: SIMVASTATIN (Verified Allergy, Unknown, 07/03/19) Subjective Constitutional: Reports: weakness Eye: Reports: no symptoms ENT: Reports: no symptoms Respiratory: Reports: no symptoms Cardiovascular: Reports: no symptoms Gastrointestinal: Reports: no symptoms Genitourinary: Reports: no symptoms Musculoskeletal: Reports: no symptoms Skin: Reports: no symptoms Psychiatric: Reports: no symptoms Neurological: Reports: no symptoms Endocrine: Reports: no symptoms Hematologic/Lymphatic: Reports: no symptoms SUBJECTIVE: Patient states that the pain has reduced and has been at a moderate level. Nurse at bedside. Objective Last 24 Hour Vital Signs Date Time Temp Pulse Resp B/P (MAP) Pulse Ox O2 Delivery O2 Flow Rate FiO2 07/05/19 04:15 88 07/05/19 04:00 98.0 99 20 114/74 (87) 94 99 07/05/19 04:00 2.0 07/05/19 00:00 98.0 97 20 104/64 (77) 97 97 07/04/19 23:29 92 07/04/19 21:00 Nasal Cannula 2.0 07/04/19 20:00 99.5 99 20 110/76 (87) 100 97 07/04/19 20:00 2.0 07/04/19 19:02 101 07/04/19 16:00 2.0 07/04/19 16:00 97.3 97 20 101/66 (78) 95 97 07/04/19 16:00 97.9 78 20 106/70 (82) 94 94 07/04/19 16:00 96 07/04/19 12:00 2.0 07/04/19 12:00 97.5 100 20 135/75 (95) 99 99 07/04/19 09:31 103 119/81 Intake and Output 07/04/19 07/05/19 19:00 07:00 Intake Total 600 ml 450 ml Output Total 750 ml 1200 ml Balance -150 ml -750 ml Intake Oral 600 ml 450 ml Output Urine Total 750 ml 1200 ml Laboratory Tests 07/05/19 03:50: White Blood Count 4.8, Red Blood Count 3.26L, Hemoglobin 10.4L, Hematocrit 31.4L , Mean Corpuscular Volume 96, Mean Corpuscular Hemoglobin 31.7H, Mean Corpuscular Hemoglobin Concent 33.0, Red Cell Distribution Width 14.5, Platelet Count 114L, Mean Platelet Volume 7.5, Neutrophils (%) (Auto) 61.4, Lymphocytes ( %) (Auto) 24.0, Monocytes (%) (Auto) 10.6H, Eosinophils (%) (Auto) 2.8, Basophils (%) (Auto) 1.2, Sodium Level 141, Potassium Level 4.2, Chloride Level 103, Carbon Dioxide Level 30, Anion Gap 8, Blood Urea Nitrogen 24H, Creatinine 1.5H, Estimat Glomerular Filtration Rate 59.5, Glucose Level 114H, Calcium Level 8.7, Pro-B-Type Natriuretic Peptide 2105H Height (Feet): 5 Height (Inches): 6.00 Weight (Pounds): 190 Objective General Appearance: no apparent distress, alert HEENT: normocephalic, PERRL, EOMI Neck: non-tender, supple Respiratory/Chest: decreased breath sounds Cardiovascular/Chest: regularly irregular Abdomen: non tender, soft Extremities: moderate edema Skin Exam: warm/dry Neurologic: alert, oriented x 3 Tremayne Fenton Jul 05, 2019 09:14
[2019-07-05] MEDS: Lisinopril 2.5mg tab ORAL SCH (09:37)
[2019-07-05] MEDS: Digoxin 0.125mg tab ORAL SCH (09:39)
--- NOTE | 2019-07-05 10:54 | Consultation ---
Consult Note Consult Note asked by Dr Pruitt to eval for elevated Cr ER: Patient presents with complaints of midsternal chest pain he was at the bus stop when the pain started Pain radiates to the neck bilaterally denies any shortness of breath denies any pleurisy Patient has had multiple hospitalizations for CHF and he does feel short of breath as well Denies any flank pain denies any recent travel denies any fevers or chills Allergies: SIMVASTATIN (Verified Allergy, Unknown, 07/03/19) Past Medical History: No History, Except For Hx Hypertension: Yes Hx COPD: Yes data reviewed examined . Assessment/Plan Renal failure- Cardio Renal Cardiomyopathy Ej Fx LOW HTN Systemic Pulmonary HTN Anemia Optimize cardiac & Pulmonary status Anemia styles urine studies monitor renal parameters Keep BP in check Per orders Scout Cody MD Jul 05, 2019 10:54
[2019-07-05 12:00] VITALS: BP 121/76
[2019-07-05 12:04] LABS: CHOLESTEROL 141 MG/DL (< 200); GAMMA GLUTAMYL TRANSPEPTIDASE 62 U/L (5-85); HDL CHOLESTEROL 57 MG/DL (40-60); PHOSPHORUS 3.9 MG/DL (2.5-4.9); TRIGLYCERIDES 17 MG/DL (30-150)
--- NOTE | 2019-07-05 14:00 | Consultation ---
History of Present Illness General Chief Complaint: Chest Pain Referring physician: Johnnie Reason for Consultation: Pain Management Present Illness Allergies: Coded Allergies: SIMVASTATIN (Verified Allergy, Unknown, 07/03/19) Medication History Scheduled Furosemide* (Lasix*), Unknown Dose ORAL DAILY, (Reported) Hydrochlorothiazide* (Hydrochlorothiazide*), Unknown Dose ORAL DAILY, (Reported) Patient History Healthcare decision maker N Resuscitation status Full Code Advanced Directive on File Physical Exam Last 24 Hour Vital Signs Date Time Temp Pulse Resp B/P (MAP) Pulse Ox O2 Delivery O2 Flow Rate FiO2 07/05/19 11:41 Nasal Cannula 2.0 07/05/19 11:36 2.0 07/05/19 09:39 88 07/05/19 09:37 114/74 07/05/19 08:00 97.5 99 20 111/75 (87) 96 99 07/05/19 08:00 71 07/05/19 04:15 88 07/05/19 04:00 98.0 99 20 114/74 (87) 94 99 07/05/19 04:00 2.0 07/05/19 00:00 98.0 97 20 104/64 (77) 97 97 07/04/19 23:29 92 07/04/19 21:00 Nasal Cannula 2.0 07/04/19 20:00 99.5 99 20 110/76 (87) 100 97 07/04/19 20:00 2.0 07/04/19 19:02 101 07/04/19 16:00 2.0 07/04/19 16:00 97.3 97 20 101/66 (78) 95 97 07/04/19 16:00 97.9 78 20 106/70 (82) 94 94 07/04/19 16:00 96 Intake and Output 07/04/19 07/05/19 19:00 07:00 Intake Total 600 ml 450 ml Output Total 750 ml 1200 ml Balance -150 ml -750 ml Intake Oral 600 ml 450 ml Output Urine Total 750 ml 1200 ml Laboratory Tests Test 07/05/19 03:50 07/05/19 11:15 White Blood Count 4.8 K/UL (4.8-10.8) Red Blood Count 3.26 M/UL (4.70-6.10) L Hemoglobin 10.4 G/DL (14.2-18.0) L Hematocrit 31.4 % (42.0-52.0) L Mean Corpuscular Volume 96 FL (80-99) Mean Corpuscular Hemoglobin 31.7 PG (27.0-31.0) H Mean Corpuscular Hemoglobin Concent 33.0 G/DL (32.0-36.0) Red Cell Distribution Width 14.5 % (11.6-14.8) Platelet Count 114 K/UL (150-450) L Mean Platelet Volume 7.5 FL (6.5-10.1) Neutrophils (%) (Auto) 61.4 % (45.0-75.0) Lymphocytes (%) (Auto) 24.0 % (20.0-45.0) Monocytes (%) (Auto) 10.6 % (1.0-10.0) H Eosinophils (%) (Auto) 2.8 % (0.0-3.0) Basophils (%) (Auto) 1.2 % (0.0-2.0) Sodium Level 141 MMOL/L (136-145) Potassium Level 4.2 MMOL/L (3.5-5.1) Chloride Level 103 MMOL/L (98-107) Carbon Dioxide Level 30 MMOL/L (21-32) Anion Gap 8 mmol/L (5-15) Blood Urea Nitrogen 24 mg/dL (7-18) H Creatinine 1.5 MG/DL (0.55-1.30) H Estimat Glomerular Filtration Rate 59.5 mL/min (>60) Glucose Level 114 MG/DL (74-106) H Calcium Level 8.7 MG/DL (8.5-10.1) Pro-B-Type Natriuretic Peptide 2105 pg/mL (0-125) H 2106 pg/mL (0-125) H Hemoglobin A1c 6.6 % (4.3-6.0) H Uric Acid 9.7 MG/DL (2.6-7.2) H Phosphorus Level 3.9 MG/DL (2.5-4.9) Magnesium Level 1.5 MG/DL (1.8-2.4) L Gamma Glutamyl Transpeptidase 62 U/L (5-85) C-Reactive Protein, Quantitative 1.5 mg/dL (0.00-0.90) H Triglycerides Level 17 MG/DL (30-150) L Cholesterol Level 141 MG/DL (< 200) LDL Cholesterol 81 mg/dL (<100) HDL Cholesterol 57 MG/DL (40-60) Cholesterol/HDL Ratio 2.5 (3.3-4.4) L Vitamin B12 Level 838 PG/ML (193-986) Folate 16.2 NG/ML (8.6-58.9) Thyroid Stimulating Hormone (TSH) 2.919 uiU/mL (0.358-3.740) Height (Feet): 5 Height (Inches): 6.00 Weight (Pounds): 190 Medications Current Medications Medications (Trade) Dose Ordered Sig/Marybeth Route PRN Reason Start Time Stop Time Status Last Admin Dose Admin Carvedilol (Coreg) 6.25 mg EVERY 12 HOURS ORAL 07/05/19 21:00 08/04/19 20:59 Digoxin (Lanoxin) 0.125 mg DAILY ORAL 07/05/19 09:15 08/04/19 09:14 07/05/19 09:39 Furosemide (Lasix) 40 mg BID IV 07/04/19 18:00 08/03/19 08:59 07/05/19 09:00 Gabapentin (Neurontin) 100 mg THREE TIMES A DAY ORAL 07/04/19 10:00 08/03/19 09:59 07/05/19 09:00 Lidocaine (Xylocaine 5% cream) 1 applic Q6HR TOPIC 07/04/19 12:00 08/03/19 11:59 07/05/19 05:13 Lisinopril (ZestriL) 5 mg DAILY ORAL 07/05/19 09:30 08/04/19 09:29 07/05/19 09:37 Morphine Sulfate (Morphine Sulfate) 2 mg Q4H PRN IVP For Pain 07/03/19 23:00 07/10/19 22:59 07/04/19 07:13 Spironolactone (Aldactone) 25 mg DAILY ORAL 07/04/19 09:00 08/03/19 08:59 07/05/19 09:00 Assessment/Plan Assessment/Plan: Heme Consult REQ : Felisa Pruitt RFC: Thrombocytopenia, anemia DOS: 07/05/2019 ID [id number] old male presents with complaints of midsternal chest pain he was at the bus stop when the pain started Pain radiates to the neck bilaterally denies any shortness of breath denies any pleurisy Patient has had multiple hospitalizations for CHF and he does feel short of breath as well Denies any flank pain denies any recent travel denies any fevers or chills Reviewed cosultant recs cards, renal, pulm Allergies: SIMVASTATIN (Verified Allergy, Unknown, 07/03/19) Patient History Past Medical History: see triage record Reviewed Nursing Documentation: PMH: Agreed; PSxH: Agreed Nursing Documentation-PMH Past Medical History: No History, Except For Hx Hypertension: Yes Hx COPD: Yes ROS (review of systems): Constitutional: No fever, no chills, no night sweats, no fatigue Skin: No rashes, lumps, itchiness, dryness HEENT: No GANDHI, ear ache, visual changes, double vision, nosebleeds Breasts: No lumps, pain, discharge Pulmonary: No cough, sputum, shortness of breath ++ bilateral rhonchi Cardiovascular: No chest pain, tightness, palpitations, syncope, PND GI: No nausea, vomiting, diarrhea, melena, hematochezia, change in appetite, : No dysuria, frequency, urgency, urinary incontinence, foamy urine Musculoskeletal: No joint swelling or muscle pain, trauma, back pain Neurologic: No dizziness, fainting, seizures, changes in smell or taste Psychiatric: No nervousness, stress, or depression, anxiety, hallucinations Endocrine: No weight change, heat or cold intolerance, tremor, insomnia Physical Exam: Vitals: reviewed General: NAD Neck: supple Chest: clear breath sounds bilaterally noted crackles+++ Cardiovascular: RRR, no s3, s4 Abdomen: soft, nontender, nd Extremities: no cce, normal range of motion Mental: alert Labs: noted Imaging: reviewed Assessment and Recs: # Thrombocytopenia - potential causes multifactorial, evaluate liver and viral etiologies to begin, also could be related to underlying medications patient has received. HIV is neg --> Hep panel and HIV ordered (hiv neg) --> US abd to evaluate for cirrhosis and hsm ordered --> Peripheral smear ordered to evaluate for blasts /schistocytes --> abx and other meds have been reviewed --> ok for ppx if plt >50k w/ either heparin or lovenox --> Transfuse if Plt < 20k and fever, or if Plt < 10k without fever # Anemia of chronic disease due to underlying chronic medical issues, multifactorial v Gi bleed --> Anemia workup has been ordered, rule out gi bleed --> No evidence of hemolysis is noted, peripheral smear has been reviewed. --> Hgb goal >7. Transfuse prn. --> Epogen or iron at this time is not particularly indicated --> Medications have been reviewed --> hgb 10.4-->10.2 # New onset dilated cardiomyopathy with severe LV systolic dysfunction and LVEF at 15%, drop of LVEF from 55% measured in 2015, require right and left heart cath to rule out CAD. --> patient is refusing this test now and do not wish to be transferred out. He realizes the risk of his actions which may include . Dr. Blair coin collector also notified. In the meantime we ll continue guideline recommended therapy for heart failure. --> as per cards recs # Severe pulmonary HTN due to left heart failure, continue diuretics. --> pulm consulted # MARGUERITE, probably cardiorenal syndrome. --> per Dr. Cody # Acute combined systolic and diastolic CHF. # Small pericardial effusion likely element of right heart failure Appreciate consultation and Mihai Yarbrough RN, MD Jul 05, 2019 14:00
--- NOTE | 2019-07-05 14:35 | NUR ---
CASE MANAGEMENT:REVIEW 07/05/19 SI: NEW ON SET CARDIOMYOPATHY EF 15% 98.2 96 20 121/76 96% ON 2L/NC MAG-1.5 CRP+1.5 BNP+2106 IS: COREG PO Q12 (DOSE INCREASED) LISINOPRIL PO QD (START) DIGOXIN PO QD (START) ALDACTONE PO QD NEURONTIN PO TID : TELEMETRY STATUS PLAN: PATIENT IS REFUSING HEART CATH RECOMMENDED BY CHIEF COMMUNICATIONS OFFICER NOW TREATING CARDIOMYOPATHY WITH MEDICATION
[2019-07-05 16:00] VITALS: BP 129/79
--- NOTE | 2019-07-05 16:03 | Cardiac Electrophysiology PN ---
Assessment/Plan Assessment/Plan 1. Nonsustained ventricular tachycardia of 13 beats. The patient already ruled out for myocardial infarction. His urine toxicology screen is negative. Its due to severe newly diagnosed CM EF 15%. Agree with Dr. Fitzpatrick that needs Left and Right heart cath but patient refused. 2. Newly diagnosed Cardiomyopathy. I am not sure if it is ischemic or nonischemic. The patient is on Coreg 3.125 mg b.i.d., Lasix 40 mg IV b.i.d., and Aldactone 25 mg daily and lisinopril . FU Dr Fitzpatrick 3. Hypertension. Continue current heart failure therapy. DW Dr Fitzpatrick and Johnnie Subjective Subjective No further VT overnight. Had 13 beats yesterday Objective Last 24 Hour Vital Signs Date Time Temp Pulse Resp B/P (MAP) Pulse Ox O2 Delivery O2 Flow Rate FiO2 07/05/19 12:00 102 07/05/19 12:00 2.0 07/05/19 12:00 98.2 93 20 121/76 (91) 96 96 07/05/19 11:41 Nasal Cannula 2.0 07/05/19 11:36 2.0 07/05/19 09:39 88 07/05/19 09:37 114/74 07/05/19 08:00 97.5 99 20 111/75 (87) 96 99 07/05/19 08:00 71 07/05/19 04:15 88 07/05/19 04:00 98.0 99 20 114/74 (87) 94 99 07/05/19 04:00 2.0 07/05/19 00:00 98.0 97 20 104/64 (77) 97 97 07/04/19 23:29 92 07/04/19 21:00 Nasal Cannula 2.0 07/04/19 20:00 99.5 99 20 110/76 (87) 100 97 07/04/19 20:00 2.0 07/04/19 19:02 101 07/04/19 16:00 2.0 07/04/19 16:00 97.3 97 20 101/66 (78) 95 97 07/04/19 16:00 97.9 78 20 106/70 (82) 94 94 07/04/19 16:00 96 Intake and Output 07/04/19 07/05/19 19:00 07:00 Intake Total 600 ml 450 ml Output Total 750 ml 1200 ml Balance -150 ml -750 ml Intake Oral 600 ml 450 ml Output Urine Total 750 ml 1200 ml Laboratory Tests Test 07/05/19 03:50 07/05/19 11:15 White Blood Count 4.8 K/UL (4.8-10.8) Red Blood Count 3.26 M/UL (4.70-6.10) L Hemoglobin 10.4 G/DL (14.2-18.0) L Hematocrit 31.4 % (42.0-52.0) L Mean Corpuscular Volume 96 FL (80-99) Mean Corpuscular Hemoglobin 31.7 PG (27.0-31.0) H Mean Corpuscular Hemoglobin Concent 33.0 G/DL (32.0-36.0) Red Cell Distribution Width 14.5 % (11.6-14.8) Platelet Count 114 K/UL (150-450) L Mean Platelet Volume 7.5 FL (6.5-10.1) Neutrophils (%) (Auto) 61.4 % (45.0-75.0) Lymphocytes (%) (Auto) 24.0 % (20.0-45.0) Monocytes (%) (Auto) 10.6 % (1.0-10.0) H Eosinophils (%) (Auto) 2.8 % (0.0-3.0) Basophils (%) (Auto) 1.2 % (0.0-2.0) Sodium Level 141 MMOL/L (136-145) Potassium Level 4.2 MMOL/L (3.5-5.1) Chloride Level 103 MMOL/L (98-107) Carbon Dioxide Level 30 MMOL/L (21-32) Anion Gap 8 mmol/L (5-15) Blood Urea Nitrogen 24 mg/dL (7-18) H Creatinine 1.5 MG/DL (0.55-1.30) H Estimat Glomerular Filtration Rate 59.5 mL/min (>60) Glucose Level 114 MG/DL (74-106) H Calcium Level 8.7 MG/DL (8.5-10.1) Pro-B-Type Natriuretic Peptide 2105 pg/mL (0-125) H 2106 pg/mL (0-125) H Hemoglobin A1c 6.6 % (4.3-6.0) H Uric Acid 9.7 MG/DL (2.6-7.2) H Phosphorus Level 3.9 MG/DL (2.5-4.9) Magnesium Level 1.5 MG/DL (1.8-2.4) L Gamma Glutamyl Transpeptidase 62 U/L (5-85) C-Reactive Protein, Quantitative 1.5 mg/dL (0.00-0.90) H Triglycerides Level 17 MG/DL (30-150) L Cholesterol Level 141 MG/DL (< 200) LDL Cholesterol 81 mg/dL (<100) HDL Cholesterol 57 MG/DL (40-60) Cholesterol/HDL Ratio 2.5 (3.3-4.4) L Vitamin B12 Level 838 PG/ML (193-986) Folate 16.2 NG/ML (8.6-58.9) Thyroid Stimulating Hormone (TSH) 2.919 uiU/mL (0.358-3.740) Hepatitis A IgM Antibody Pending Hepatitis B Surface Antigen Pending Hepatitis B Core IgM Antibody Pending Hepatitis C Antibody Pending Objective HEAD AND NECK: Positive JVD. LUNGS: Decreased breath sounds. CARDIOVASCULAR: Regular S1 and S2 with no gallop. ABDOMEN: Soft. EXTREMITIES: 2+ pitting edema. Spenser Kimble MD Jul 05, 2019 16:03
--- NOTE | 2019-07-05 17:38 | Pulmonology Progress Note ---
Assessment/Plan Assessment/Plan IMPRESSION: 1. Pulmonary edema/CHF. 2. Hypertension. DISCUSSION: continue diureses. His echocardiogram shows low EF. I will follow as remediation consultant. Cardiac evaluation noted. I will order oxygen and pulmonary hygiene Frank Baca M.D. Subjective Interval Events: none Constitutional: Reports: no symptoms HEENT: Repors: no symptoms Respiratory: Reports: no symptoms Cardiovascular: Reports: no symptoms Gastrointestinal/Abdominal: Reports: no symptoms Allergies: Coded Allergies: SIMVASTATIN (Verified Allergy, Unknown, 07/03/19) Objective Last 24 Hour Vital Signs Date Time Temp Pulse Resp B/P (MAP) Pulse Ox O2 Delivery O2 Flow Rate FiO2 07/05/19 12:00 102 07/05/19 12:00 2.0 07/05/19 12:00 98.2 93 20 121/76 (91) 96 96 07/05/19 11:41 Nasal Cannula 2.0 07/05/19 11:36 2.0 07/05/19 09:39 88 07/05/19 09:37 114/74 07/05/19 08:00 97.5 99 20 111/75 (87) 96 99 07/05/19 08:00 71 07/05/19 04:15 88 07/05/19 04:00 98.0 99 20 114/74 (87) 94 99 07/05/19 04:00 2.0 07/05/19 00:00 98.0 97 20 104/64 (77) 97 97 07/04/19 23:29 92 07/04/19 21:00 Nasal Cannula 2.0 07/04/19 20:00 99.5 99 20 110/76 (87) 100 97 07/04/19 20:00 2.0 07/04/19 19:02 101 Intake and Output 07/04/19 07/05/19 19:00 07:00 Intake Total 600 ml 450 ml Output Total 750 ml 1200 ml Balance -150 ml -750 ml Intake Oral 600 ml 450 ml Output Urine Total 750 ml 1200 ml General Appearance: no acute distress HEENT: normocephalic Respiratory/Chest: chest wall non-tender Cardiovascular: normal peripheral pulses, normal rate Abdomen: normal bowel sounds Laboratory Tests 07/05/19 03:50: White Blood Count 4.8, Red Blood Count 3.26L, Hemoglobin 10.4L, Hematocrit 31.4L , Mean Corpuscular Volume 96, Mean Corpuscular Hemoglobin 31.7H, Mean Corpuscular Hemoglobin Concent 33.0, Red Cell Distribution Width 14.5, Platelet Count 114L, Mean Platelet Volume 7.5, Neutrophils (%) (Auto) 61.4, Lymphocytes ( %) (Auto) 24.0, Monocytes (%) (Auto) 10.6H, Eosinophils (%) (Auto) 2.8, Basophils (%) (Auto) 1.2, Sodium Level 141, Potassium Level 4.2, Chloride Level 103, Carbon Dioxide Level 30, Anion Gap 8, Blood Urea Nitrogen 24H, Creatinine 1.5H, Estimat Glomerular Filtration Rate 59.5, Glucose Level 114H, Calcium Level 8.7, Pro-B-Type Natriuretic Peptide 2105H 07/05/19 11:15: Pro-B-Type Natriuretic Peptide 2106H, Hemoglobin A1c 6.6H, Uric Acid 9.7H, Phosphorus Level 3.9, Magnesium Level 1.5L, Gamma Glutamyl Transpeptidase 62, C- Reactive Protein, Quantitative 1.5H, Triglycerides Level 17L, Cholesterol Level 141, LDL Cholesterol 81, HDL Cholesterol 57, Cholesterol/HDL Ratio 2.5L, Vitamin B12 Level 838, Folate 16.2, Thyroid Stimulating Hormone (TSH) 2.919, Hepatitis A IgM Antibody [Pending], Hepatitis B Surface Antigen [Pending], Hepatitis B Core IgM Antibody [Pending], Hepatitis C Antibody [Pending] Current Medications Medications (Trade) Dose Ordered Sig/Marybeth Route PRN Reason Start Time Stop Time Status Last Admin Dose Admin Carvedilol (Coreg) 6.25 mg EVERY 12 HOURS ORAL 07/05/19 21:00 08/04/19 20:59 Digoxin (Lanoxin) 0.125 mg DAILY ORAL 07/05/19 09:15 08/04/19 09:14 07/05/19 09:39 Furosemide (Lasix) 40 mg BID IV 07/04/19 18:00 08/03/19 08:59 07/05/19 09:00 Gabapentin (Neurontin) 100 mg THREE TIMES A DAY ORAL 07/04/19 10:00 08/03/19 09:59 07/05/19 13:00 Lidocaine (Xylocaine 5% cream) 1 applic Q6HR TOPIC 07/04/19 12:00 08/03/19 11:59 07/05/19 12:00 Lisinopril (ZestriL) 5 mg DAILY ORAL 07/05/19 09:30 08/04/19 09:29 07/05/19 09:37 Morphine Sulfate (Morphine Sulfate) 2 mg Q4H PRN IVP For Pain 07/03/19 23:00 07/10/19 22:59 07/04/19 07:13 Spironolactone (Aldactone) 25 mg DAILY ORAL 07/04/19 09:00 08/03/19 08:59 07/05/19 09:00 Frank Baca MD Jul 05, 2019 17:38
--- NOTE | 2019-07-05 19:50 | NUR ---
NURSE NOTES: Received pt from GENTRY De La Torre. Pt awake, alert, and talkative. Bed in lowest position. Call light within reach. Will continue to monitor.
[2019-07-05 20:00] VITALS: BP 114/74
[2019-07-05] MEDS: Morphine Sulfate 2mg/ml Inj(IV/IM USE ONLY) IVP PRN (20:15)
[2019-07-05] MEDS: Carvedilol 6.25mg Tab ORAL SCH (20:22)
--- NOTE | 2019-07-05 20:51 | General Progress Note ---
Assessment/Plan Problem List: (1) SOB (shortness of breath) ICD Codes: R06.02 - Shortness of breath SNOMED: 105894134 (2) CHF (congestive heart failure) ICD Codes: I50.9 - Heart failure, unspecified SNOMED: 82891576 (3) Pneumonia ICD Codes: J18.9 - Pneumonia SNOMED: 021695283 (4) HTN (hypertension) ICD Codes: I10 - HTN (hypertension) SNOMED: 03617136 Status: progressing Assessment/Plan: dilated cardiomyopathy refused cardiac cath moniter for arrythmia chf resp insuff pna Subjective ROS Limited/Unobtainable: Yes Allergies: Coded Allergies: SIMVASTATIN (Verified Allergy, Unknown, 07/03/19) Objective Last 24 Hour Vital Signs Date Time Temp Pulse Resp B/P (MAP) Pulse Ox O2 Delivery O2 Flow Rate FiO2 07/05/19 20:22 105 114/74 07/05/19 20:00 99.0 93 20 114/74 (87) 96 109 07/05/19 17:38 2.0 07/05/19 16:00 98.0 96 20 129/79 (96) 96 89 07/05/19 16:00 103 07/05/19 12:00 102 07/05/19 12:00 2.0 07/05/19 12:00 98.2 93 20 121/76 (91) 96 96 07/05/19 11:41 Nasal Cannula 2.0 07/05/19 11:36 2.0 07/05/19 09:39 88 07/05/19 09:37 114/74 07/05/19 08:00 97.5 99 20 111/75 (87) 96 99 07/05/19 08:00 71 07/05/19 04:15 88 07/05/19 04:00 98.0 99 20 114/74 (87) 94 99 07/05/19 04:00 2.0 07/05/19 00:00 98.0 97 20 104/64 (77) 97 97 07/04/19 23:29 92 07/04/19 21:00 Nasal Cannula 2.0 Intake and Output 07/04/19 07/05/19 19:00 07:00 Intake Total 600 ml 450 ml Output Total 750 ml 1200 ml Balance -150 ml -750 ml Intake Oral 600 ml 450 ml Output Urine Total 750 ml 1200 ml Laboratory Tests 07/05/19 03:50: White Blood Count 4.8, Red Blood Count 3.26L, Hemoglobin 10.4L, Hematocrit 31.4L , Mean Corpuscular Volume 96, Mean Corpuscular Hemoglobin 31.7H, Mean Corpuscular Hemoglobin Concent 33.0, Red Cell Distribution Width 14.5, Platelet Count 114L, Mean Platelet Volume 7.5, Neutrophils (%) (Auto) 61.4, Lymphocytes ( %) (Auto) 24.0, Monocytes (%) (Auto) 10.6H, Eosinophils (%) (Auto) 2.8, Basophils (%) (Auto) 1.2, Sodium Level 141, Potassium Level 4.2, Chloride Level 103, Carbon Dioxide Level 30, Anion Gap 8, Blood Urea Nitrogen 24H, Creatinine 1.5H, Estimat Glomerular Filtration Rate 59.5, Glucose Level 114H, Calcium Level 8.7, Pro-B-Type Natriuretic Peptide 2105H 07/05/19 11:15: Pro-B-Type Natriuretic Peptide 2106H, Hemoglobin A1c 6.6H, Uric Acid 9.7H, Phosphorus Level 3.9, Magnesium Level 1.5L, Gamma Glutamyl Transpeptidase 62, C- Reactive Protein, Quantitative 1.5H, Triglycerides Level 17L, Cholesterol Level 141, LDL Cholesterol 81, HDL Cholesterol 57, Cholesterol/HDL Ratio 2.5L, Vitamin B12 Level 838, Folate 16.2, Thyroid Stimulating Hormone (TSH) 2.919, Hepatitis A IgM Antibody [Pending], Hepatitis B Surface Antigen [Pending], Hepatitis B Core IgM Antibody [Pending], Hepatitis C Antibody [Pending] Height (Feet): 5 Height (Inches): 6.00 Weight (Pounds): 190 Cardiovascular: normal rate Respiratory/Chest: lungs clear Abdomen: soft Felisa Blair MD Jul 05, 2019 20:51
--- NOTE | 2019-07-05 23:53 | NUR ---
NURSE NOTES: Called and left a mesage withj Dr. Kimble informing him about the pts episode of v-tach. Awaiting call back.
--- NOTE | 2019-07-05 23:55 | Cardiology Progress Note ---
Assessment/Plan Assessment/Plan 1. New onset dilated cardiomyopathy with severe LV systolic dysfunction and LVEF at 15%, drop of LVEF from 55% measured in 2015, require right and left heart cath to rule out CAD. The patient is refusing this test now and do not wish to be transferred out. He realizes the risk of his actions which may include . Dr. Blair help desk technician also notified. In the meantime we ll continue guideline recommended therapy for heart failure. 2. Severe pulmonary HTN due to left heart failure, continue diuretics. 3. MARGUERITE, probably cardiorenal syndrome. 4. Acute combined systolic and diastolic CHF. 5. Small pericardial effusion likely element of right heart failure. Subjective Subjective Sinus tachycardia at rate of 105. Objective Last 24 Hour Vital Signs Date Time Temp Pulse Resp B/P (MAP) Pulse Ox O2 Delivery O2 Flow Rate FiO2 07/05/19 21:00 Nasal Cannula 2.0 07/05/19 20:22 105 114/74 07/05/19 20:00 102 07/05/19 20:00 99.0 93 20 114/74 (87) 96 109 07/05/19 20:00 2.0 07/05/19 17:38 2.0 07/05/19 16:00 98.0 96 20 129/79 (96) 96 89 07/05/19 16:00 103 07/05/19 12:00 102 07/05/19 12:00 2.0 07/05/19 12:00 98.2 93 20 121/76 (91) 96 96 07/05/19 11:41 Nasal Cannula 2.0 07/05/19 11:36 2.0 07/05/19 09:39 88 07/05/19 09:37 114/74 07/05/19 08:00 97.5 99 20 111/75 (87) 96 99 07/05/19 08:00 71 07/05/19 04:15 88 07/05/19 04:00 98.0 99 20 114/74 (87) 94 99 07/05/19 04:00 2.0 07/05/19 00:00 98.0 97 20 104/64 (77) 97 97 Intake and Output 07/04/19 07/05/19 19:00 07:00 Intake Total 600 ml 450 ml Output Total 750 ml 1200 ml Balance -150 ml -750 ml Intake Oral 600 ml 450 ml Output Urine Total 750 ml 1200 ml 2D Echo: DCM, LVEF 15%, Restricitve LV physio, Gloabl LV HK, RAP 15, RVSP 53, Mod MR Laboratory Tests Test 07/05/19 03:50 07/05/19 11:15 White Blood Count 4.8 K/UL (4.8-10.8) Red Blood Count 3.26 M/UL (4.70-6.10) L Hemoglobin 10.4 G/DL (14.2-18.0) L Hematocrit 31.4 % (42.0-52.0) L Mean Corpuscular Volume 96 FL (80-99) Mean Corpuscular Hemoglobin 31.7 PG (27.0-31.0) H Mean Corpuscular Hemoglobin Concent 33.0 G/DL (32.0-36.0) Red Cell Distribution Width 14.5 % (11.6-14.8) Platelet Count 114 K/UL (150-450) L Mean Platelet Volume 7.5 FL (6.5-10.1) Neutrophils (%) (Auto) 61.4 % (45.0-75.0) Lymphocytes (%) (Auto) 24.0 % (20.0-45.0) Monocytes (%) (Auto) 10.6 % (1.0-10.0) H Eosinophils (%) (Auto) 2.8 % (0.0-3.0) Basophils (%) (Auto) 1.2 % (0.0-2.0) Sodium Level 141 MMOL/L (136-145) Potassium Level 4.2 MMOL/L (3.5-5.1) Chloride Level 103 MMOL/L (98-107) Carbon Dioxide Level 30 MMOL/L (21-32) Anion Gap 8 mmol/L (5-15) Blood Urea Nitrogen 24 mg/dL (7-18) H Creatinine 1.5 MG/DL (0.55-1.30) H Estimat Glomerular Filtration Rate 59.5 mL/min (>60) Glucose Level 114 MG/DL (74-106) H Calcium Level 8.7 MG/DL (8.5-10.1) Pro-B-Type Natriuretic Peptide 2105 pg/mL (0-125) H 2106 pg/mL (0-125) H Hemoglobin A1c 6.6 % (4.3-6.0) H Uric Acid 9.7 MG/DL (2.6-7.2) H Phosphorus Level 3.9 MG/DL (2.5-4.9) Magnesium Level 1.5 MG/DL (1.8-2.4) L Gamma Glutamyl Transpeptidase 62 U/L (5-85) C-Reactive Protein, Quantitative 1.5 mg/dL (0.00-0.90) H Triglycerides Level 17 MG/DL (30-150) L Cholesterol Level 141 MG/DL (< 200) LDL Cholesterol 81 mg/dL (<100) HDL Cholesterol 57 MG/DL (40-60) Cholesterol/HDL Ratio 2.5 (3.3-4.4) L Vitamin B12 Level 838 PG/ML (193-986) Folate 16.2 NG/ML (8.6-58.9) Thyroid Stimulating Hormone (TSH) 2.919 uiU/mL (0.358-3.740) Hepatitis A IgM Antibody Pending Hepatitis B Surface Antigen Pending Hepatitis B Core IgM Antibody Pending Hepatitis C Antibody Pending Objective Head: normocephalic, atraumatic, bilateral eye PERRL, bilateral eye EOMI. Neck: JVP elevated at 10 cm, no carotid bruit. Respiratory: Bibasilar crackles Cardiovascular: regular rate, rhythm, normal S1S2, Tachycardia, no murmurs, gallops or rubs. Gastrointestinal: non tender, soft, non-distended, + BS, no HSM. Musculoskeletal: 2+ B/L LE edema Spenser Fitzpatrick MD Jul 05, 2019 23:55
[2019-07-06] VITALS: BP 120/76
[2019-07-06] MEDS: Morphine Sulfate 2mg/ml Inj(IV/IM USE ONLY) IVP PRN ×3 (00:35→11:06)
[2019-07-06 04:00] VITALS: BP 109/75
--- NOTE | 2019-07-06 04:22 | NUR ---
NURSE NOTES: Dr. Kimble replied that pt is refusing cardiac cath and not to call if pt has less that 10 beats. Informed auto transmission technician. No new orders given.
--- NOTE | 2019-07-06 05:59 | NUR ---
NURSE NOTES: Called and left a Message with Dr. Blair regarding pts Mg level. Awaiting call back.
--- NOTE | 2019-07-06 06:56 | NUR ---
NURSE NOTES: Dr. Blair called back with orders to inform Dr Cody about the Mg level. Called and left a message with Dr. Cody. Awaiting call back.
[2019-07-06 07:03] LABS: % IRON SATURATION 8 % (15-50); IRON 35 ug/dL (50-175); TOTAL IRON BINDING CAPACITY 433 ug/dL (250-450)
[2019-07-06 07:04] LABS: ALANINE AMINOTRANSFERASE 19 U/L (12-78); ALBUMIN 3.3 G/DL (3.4-5.0); ALBUMIN/GLOBULIN RATIO 0.8 (1.0-2.7); ALKALINE PHOSPHATASE 88 U/L (46-116); ANION GAP 7 mmol/L (5-15); ASPARTATE AMINO TRANSFERASE 30 U/L (15-37); BILIRUBIN,TOTAL 0.5 MG/DL (0.2-1.0); BLOOD UREA NITROGEN 24 mg/dL (7-18); CALCIUM 8.7 MG/DL (8.5-10.1); CARBON DIOXIDE 31 MMOL/L (21-32); CHLORIDE 104 MMOL/L (98-107); CREATININE 1.4 MG/DL (0.55-1.30); FERRITIN 29 NG/ML (8-388); PHOSPHORUS 4.3 MG/DL (2.5-4.9); POTASSIUM 4.1 MMOL/L (3.5-5.1); SODIUM 142 MMOL/L (136-145)
--- NOTE | 2019-07-06 07:37 | NUR ---
HAND-OFF: Report given to GENTRY Esparza. Pt stable.
[2019-07-06 09:00] VITALS: BP 100/82
[2019-07-06] MEDS ORDERED: Iron Sucrose 200 MG in NS 110 ML IV SCH (09:00)
[2019-07-06] MEDS: Lisinopril 2.5mg tab ORAL SCH (09:00)
[2019-07-06] MEDS: Carvedilol 6.25mg Tab ORAL SCH (09:00)
[2019-07-06] MEDS: Spironolactone 25mg tab ORAL SCH (09:00)
--- NOTE | 2019-07-06 09:08 | NUR ---
CASE MANAGEMENT:REVIEW 07/06/19 SI: NEW ON SET CARDIOMYOPATHY EF 15% OVER LAST 24HRS HEART RATE WAS [phone] 98.1 97 18 109/75 98% ON 2L/NC BUN+24 CR+1.4 MAG-1.6 IS: COREG 6.25MG PO Q12 LISINOPRIL 5MG PO QD DIGOXIN 0.125MG PO QD IV LASIX 40MG BID ALDACTONE 25MG PO QD NEURONTIN PO TID IV MORPHINE 2MG Q4HRS PRN : TELEMETRY STATUS PLAN: PATIENT IS REFUSING HEART CATH RECOMMENDED BY RESOURCE PROGRAM TEACHER
--- NOTE | 2019-07-06 09:13 | NUR ---
DISCHARGE PLANNING LEFT MESSAGE FOR DR VALENTE ON HIS NON EMERGENCY LINE
--- NOTE | 2019-07-06 09:27 | General Progress Note ---
Assessment/Plan Assessment/Plan: (1) Peripheral Neuropathy (2) Peripheral Vascular disease Patient will be continued on Morphine, Neurontin and Lidocaine cream D/w Dr. Renteria and he concurred. Subjective Date patient seen: Jul 06, 2019 Time patient seen: 08:45 - am Allergies: Coded Allergies: SIMVASTATIN (Verified Allergy, Unknown, 07/03/19) Subjective Constitutional: Reports: weakness Eye: Reports: no symptoms ENT: Reports: no symptoms Respiratory: Reports: no symptoms Cardiovascular: Reports: no symptoms Gastrointestinal: Reports: no symptoms Genitourinary: Reports: no symptoms Musculoskeletal: Reports: no symptoms Skin: Reports: no symptoms Psychiatric: Reports: no symptoms Neurological: Reports: no symptoms Endocrine: Reports: no symptoms Hematologic/Lymphatic: Reports: no symptoms SUBJECTIVE: Patient showing no signs of pain or distress. His pain has been severe but is tolerated on the Morphine. No new complaints at this time. Objective Last 24 Hour Vital Signs Date Time Temp Pulse Resp B/P (MAP) Pulse Ox O2 Delivery O2 Flow Rate FiO2 07/06/19 04:00 2.0 07/06/19 04:00 98.1 97 18 109/75 (86) 98 07/06/19 04:00 91 07/06/19 00:00 108 07/06/19 00:00 98.0 105 16 120/76 (91) 98 07/05/19 23:56 124 07/05/19 21:00 Nasal Cannula 2.0 07/05/19 20:22 105 114/74 07/05/19 20:00 102 07/05/19 20:00 99.0 93 20 114/74 (87) 96 109 07/05/19 20:00 2.0 07/05/19 17:38 2.0 07/05/19 16:00 98.0 96 20 129/79 (96) 96 89 07/05/19 16:00 103 07/05/19 12:00 102 07/05/19 12:00 2.0 07/05/19 12:00 98.2 93 20 121/76 (91) 96 96 07/05/19 11:41 Nasal Cannula 2.0 07/05/19 11:36 2.0 07/05/19 09:39 88 07/05/19 09:37 114/74 Intake and Output 07/05/19 07/06/19 19:00 07:00 Intake Total 930 ml Output Total 2000 ml Balance -1070 ml Intake Oral 930 ml Output Urine Total 2000 ml Laboratory Tests 07/05/19 11:15: Hemoglobin A1c 6.6H, Uric Acid 9.7H, Phosphorus Level 3.9, Magnesium Level 1.5L , Gamma Glutamyl Transpeptidase 62, C-Reactive Protein, Quantitative 1.5H, Pro-B -Type Natriuretic Peptide 2106H, Triglycerides Level 17L, Cholesterol Level 141 , LDL Cholesterol 81, HDL Cholesterol 57, Cholesterol/HDL Ratio 2.5L, Vitamin B12 Level 838, Folate 16.2, Thyroid Stimulating Hormone (TSH) 2.919, Hepatitis A IgM Antibody Negative, Hepatitis B Surface Antigen Negative, Hepatitis B Core IgM Antibody Negative, Hepatitis C Antibody <0.1 07/06/19 05:27: Uric Acid 9.5H, Phosphorus Level 4.3, Magnesium Level 1.6L, C-Reactive Protein, Quantitative 1.3H, Pro-B-Type Natriuretic Peptide 2370H, Sodium Level 142, Potassium Level 4.1, Chloride Level 104, Carbon Dioxide Level 31, Anion Gap 7, Blood Urea Nitrogen 24H, Creatinine 1.4H, Estimat Glomerular Filtration Rate > 60, Glucose Level 89, Calcium Level 8.7, Iron Level 35L, Total Iron Binding Capacity 433, Percent Iron Saturation 8L, Unsaturated Iron Binding 398H, Ferritin 29, Total Bilirubin 0.5, Aspartate Amino Transf (AST/SGOT) 30, Alanine Aminotransferase (ALT/SGPT) 19, Alkaline Phosphatase 88, Total Protein 7.3, Albumin 3.3L, Globulin 4.0, Albumin/Globulin Ratio 0.8L, Digoxin Level < 0.2L Height (Feet): 5 Height (Inches): 6.00 Weight (Pounds): 190 Objective General Appearance: no apparent distress, alert HEENT: normocephalic, PERRL, EOMI Neck: non-tender, supple Respiratory/Chest: decreased breath sounds Cardiovascular/Chest: regularly irregular Abdomen: non tender, soft Extremities: moderate edema Skin Exam: warm/dry Neurologic: alert, oriented x 3 Tremayne Fenton Jul 06, 2019 09:27
[2019-07-06] MEDS: Digoxin 0.125mg tab ORAL SCH (10:07)
--- NOTE | 2019-07-06 10:50 | Nephrology Progress Note ---
Assessment/Plan Problem List: (1) MARGUERITE (acute kidney injury) (2) HTN (hypertension) (3) CHF (congestive heart failure) (4) Cardiomyopathy (5) Anemia (6) Pulmonary HTN Assessment Renal failure- Cardio Renal Cardiomyopathy Ej Fx LOW HTN Systemic Pulmonary HTN Anemia Plan Optimize cardiac & Pulmonary status Anemia styles - will give IV Iron mag supplement urine studies monitor renal parameters Keep BP in check Per orders Subjective ROS Limited/Unobtainable: No Constitutional: Reports: malaise, weakness Objective Objective Last 24 Hour Vital Signs Date Time Temp Pulse Resp B/P (MAP) Pulse Ox O2 Delivery O2 Flow Rate FiO2 07/06/19 10:07 82 07/06/19 09:00 Nasal Cannula 2.0 07/06/19 09:00 80 100/80 07/06/19 09:00 100/82 07/06/19 04:00 2.0 07/06/19 04:00 98.1 97 18 109/75 (86) 98 07/06/19 04:00 91 07/06/19 00:00 108 07/06/19 00:00 98.0 105 16 120/76 (91) 98 07/05/19 23:56 124 07/05/19 21:00 Nasal Cannula 2.0 07/05/19 20:22 105 114/74 07/05/19 20:00 102 07/05/19 20:00 99.0 93 20 114/74 (87) 96 109 07/05/19 20:00 2.0 07/05/19 17:38 2.0 07/05/19 16:00 98.0 96 20 129/79 (96) 96 89 07/05/19 16:00 103 07/05/19 12:00 102 07/05/19 12:00 2.0 07/05/19 12:00 98.2 93 20 121/76 (91) 96 96 07/05/19 11:41 Nasal Cannula 2.0 07/05/19 11:36 2.0 Intake and Output 07/05/19 07/06/19 19:00 07:00 Intake Total 930 ml Output Total 2000 ml Balance -1070 ml Intake Oral 930 ml Output Urine Total 2000 ml Laboratory Tests 07/05/19 11:15: Hemoglobin A1c 6.6H, Uric Acid 9.7H, Phosphorus Level 3.9, Magnesium Level 1.5L , Gamma Glutamyl Transpeptidase 62, C-Reactive Protein, Quantitative 1.5H, Pro-B -Type Natriuretic Peptide 2106H, Triglycerides Level 17L, Cholesterol Level 141 , LDL Cholesterol 81, HDL Cholesterol 57, Cholesterol/HDL Ratio 2.5L, Vitamin B12 Level 838, Folate 16.2, Thyroid Stimulating Hormone (TSH) 2.919, Hepatitis A IgM Antibody Negative, Hepatitis B Surface Antigen Negative, Hepatitis B Core IgM Antibody Negative, Hepatitis C Antibody <0.1 07/06/19 05:27: Uric Acid 9.5H, Phosphorus Level 4.3, Magnesium Level 1.6L, C-Reactive Protein, Quantitative 1.3H, Pro-B-Type Natriuretic Peptide 2370H, Sodium Level 142, Potassium Level 4.1, Chloride Level 104, Carbon Dioxide Level 31, Anion Gap 7, Blood Urea Nitrogen 24H, Creatinine 1.4H, Estimat Glomerular Filtration Rate > 60, Glucose Level 89, Calcium Level 8.7, Iron Level 35L, Total Iron Binding Capacity 433, Percent Iron Saturation 8L, Unsaturated Iron Binding 398H, Ferritin 29, Total Bilirubin 0.5, Aspartate Amino Transf (AST/SGOT) 30, Alanine Aminotransferase (ALT/SGPT) 19, Alkaline Phosphatase 88, Total Protein 7.3, Albumin 3.3L, Globulin 4.0, Albumin/Globulin Ratio 0.8L, Digoxin Level < 0.2L Height (Feet): 5 Height (Inches): 6.00 Weight (Pounds): 190 General Appearance: no apparent distress Cardiovascular: tachycardia Respiratory/Chest: decreased breath sounds Abdomen: soft Scout Cody MD Jul 06, 2019 10:50
[2019-07-06] MEDS ORDERED: Digoxin 0.125mg tab ORAL SCH (11:00)
--- NOTE | 2019-07-06 11:27 | Cardiac Electrophysiology PN ---
Assessment/Plan Assessment/Plan 1. Nonsustained ventricular tachycardia of up to 13 beats. The patient already ruled out for myocardial infarction. His urine toxicology screen is negative. Its due to severe newly diagnosed CM EF 15%. Agree with Dr. Fitzpatrick that needs Left and Right heart cath but patient still refusing Will need Life Vest but very noncompliant. 2. Newly diagnosed Cardiomyopathy. I am not sure if it is ischemic or nonischemic. The patient is on Coreg 3.125 mg b.i.d., Lasix 40 mg IV b.i.d., and Aldactone 25 mg daily and lisinopril . FU Dr Fitzpatrick 3. Hypertension. Continue current heart failure therapy. DW Dr Fitzpatrick and Johnnie Subjective Subjective Had another 6 and 10 beats of VT last night. Still refusing cath Objective Last 24 Hour Vital Signs Date Time Temp Pulse Resp B/P (MAP) Pulse Ox O2 Delivery O2 Flow Rate FiO2 07/06/19 10:07 82 07/06/19 09:00 Nasal Cannula 2.0 07/06/19 09:00 80 100/80 07/06/19 09:00 100/82 07/06/19 04:00 2.0 07/06/19 04:00 98.1 97 18 109/75 (86) 98 07/06/19 04:00 91 07/06/19 00:00 108 07/06/19 00:00 98.0 105 16 120/76 (91) 98 07/05/19 23:56 124 07/05/19 21:00 Nasal Cannula 2.0 07/05/19 20:22 105 114/74 07/05/19 20:00 102 07/05/19 20:00 99.0 93 20 114/74 (87) 96 109 07/05/19 20:00 2.0 07/05/19 17:38 2.0 07/05/19 16:00 98.0 96 20 129/79 (96) 96 89 07/05/19 16:00 103 07/05/19 12:00 102 07/05/19 12:00 2.0 07/05/19 12:00 98.2 93 20 121/76 (91) 96 96 07/05/19 11:41 Nasal Cannula 2.0 07/05/19 11:36 2.0 Intake and Output 07/05/19 07/06/19 19:00 07:00 Intake Total 930 ml Output Total 2000 ml Balance -1070 ml Intake Oral 930 ml Output Urine Total 2000 ml Laboratory Tests Test 07/06/19 05:27 Sodium Level 142 MMOL/L (136-145) Potassium Level 4.1 MMOL/L (3.5-5.1) Chloride Level 104 MMOL/L (98-107) Carbon Dioxide Level 31 MMOL/L (21-32) Anion Gap 7 mmol/L (5-15) Blood Urea Nitrogen 24 mg/dL (7-18) H Creatinine 1.4 MG/DL (0.55-1.30) H Estimat Glomerular Filtration Rate > 60 mL/min (>60) Glucose Level 89 MG/DL (74-106) Uric Acid 9.5 MG/DL (2.6-7.2) H Calcium Level 8.7 MG/DL (8.5-10.1) Phosphorus Level 4.3 MG/DL (2.5-4.9) Magnesium Level 1.6 MG/DL (1.8-2.4) L Iron Level 35 ug/dL (50-175) L Total Iron Binding Capacity 433 ug/dL (250-450) Percent Iron Saturation 8 % (15-50) L Unsaturated Iron Binding 398 ug/dL (112-346) H Ferritin 29 NG/ML (8-388) Total Bilirubin 0.5 MG/DL (0.2-1.0) Aspartate Amino Transf (AST/SGOT) 30 U/L (15-37) Alanine Aminotransferase (ALT/SGPT) 19 U/L (12-78) Alkaline Phosphatase 88 U/L (46-116) C-Reactive Protein, Quantitative 1.3 mg/dL (0.00-0.90) H Pro-B-Type Natriuretic Peptide 2370 pg/mL (0-125) H Total Protein 7.3 G/DL (6.4-8.2) Albumin 3.3 G/DL (3.4-5.0) L Globulin 4.0 g/dL Albumin/Globulin Ratio 0.8 (1.0-2.7) L Digoxin Level < 0.2 NG/ML (0.5-2.0) L Objective HEAD AND NECK: Positive JVD. LUNGS: Decreased breath sounds. CARDIOVASCULAR: Regular S1 and S2 with no gallop. ABDOMEN: Soft. EXTREMITIES: 2+ pitting edema. Spenser Kimble MD Jul 06, 2019 11:27
--- NOTE | 2019-07-06 12:04 | Diagnostic Imaging Report ---
Indication: Abdominal pain Technique: Grayscale and duplex Doppler imaging of the abdomen performed. Comparison: None Findings: The liver is mildly heterogeneous. Doppler interrogation of the main portal vein shows patency with slightly pulsatile flow. Portal hypertension not excluded. There is no biliary ductal dilatation identified. Gallbladder is notable for wall thickening without definite stones. Spleen is borderline enlarged. There is trace ascites. CBD is 5 mm. Trace right pleural effusion noted. There demonstrated part of the pancreas, aorta and IVC show no definite abnormalities. Both kidneys appear unremarkable. There is no hydronephrosis. IMPRESSION: Thickening of the gallbladder wall, nonspecific. Trace ascites Borderline splenomegaly. Pulsatile flow in the portal vein. Portal hypertension not excluded. Trace right pleural effusion.
[2019-07-06] MEDS ORDERED: Docusate 100mg cap ORAL SCH (13:00)
--- NOTE | 2019-07-06 13:29 | Pulmonology Progress Note ---
Assessment/Plan Assessment/Plan IMPRESSION: 1. Pulmonary edema/CHF. 2. Hypertension. DISCUSSION: continue diureses. His echocardiogram shows low EF. I will follow as parcel post order clerk. Cardiac evaluation noted. I will order oxygen and pulmonary hygiene Frank Baca M.D. Subjective Interval Events: None new Constitutional: Reports: no symptoms HEENT: Repors: no symptoms Respiratory: Reports: no symptoms Cardiovascular: Reports: no symptoms Allergies: Coded Allergies: SIMVASTATIN (Verified Allergy, Unknown, 07/03/19) Objective Last 24 Hour Vital Signs Date Time Temp Pulse Resp B/P (MAP) Pulse Ox O2 Delivery O2 Flow Rate FiO2 07/06/19 11:00 82 07/06/19 10:07 82 07/06/19 09:00 Nasal Cannula 2.0 07/06/19 09:00 80 100/80 07/06/19 09:00 100/82 07/06/19 04:00 2.0 07/06/19 04:00 98.1 97 18 109/75 (86) 98 07/06/19 04:00 91 07/06/19 00:00 108 07/06/19 00:00 98.0 105 16 120/76 (91) 98 07/05/19 23:56 124 07/05/19 21:00 Nasal Cannula 2.0 07/05/19 20:22 105 114/74 07/05/19 20:00 102 07/05/19 20:00 99.0 93 20 114/74 (87) 96 109 07/05/19 20:00 2.0 07/05/19 17:38 2.0 07/05/19 16:00 98.0 96 20 129/79 (96) 96 89 07/05/19 16:00 103 Intake and Output 07/05/19 07/06/19 19:00 07:00 Intake Total 930 ml Output Total 2000 ml Balance -1070 ml Intake Oral 930 ml Output Urine Total 2000 ml General Appearance: no acute distress HEENT: normocephalic Respiratory/Chest: chest wall non-tender Cardiovascular: normal peripheral pulses Abdomen: normal bowel sounds Laboratory Tests 07/06/19 05:27: Sodium Level 142, Potassium Level 4.1, Chloride Level 104, Carbon Dioxide Level 31, Anion Gap 7, Blood Urea Nitrogen 24H, Creatinine 1.4H, Estimat Glomerular Filtration Rate > 60, Glucose Level 89, Uric Acid 9.5H, Calcium Level 8.7, Phosphorus Level 4.3, Magnesium Level 1.6L, Iron Level 35L, Total Iron Binding Capacity 433, Percent Iron Saturation 8L, Unsaturated Iron Binding 398H, Ferritin 29, Total Bilirubin 0.5, Aspartate Amino Transf (AST/SGOT) 30, Alanine Aminotransferase (ALT/SGPT) 19, Alkaline Phosphatase 88, C-Reactive Protein, Quantitative 1.3H, Pro-B-Type Natriuretic Peptide 2370H, Total Protein 7.3, Albumin 3.3L, Globulin 4.0, Albumin/Globulin Ratio 0.8L, Digoxin Level < 0.2L Current Medications Medications (Trade) Dose Ordered Sig/Marybeth Route PRN Reason Start Time Stop Time Status Last Admin Dose Admin Carvedilol (Coreg) 6.25 mg EVERY 12 HOURS ORAL 07/05/19 21:00 08/04/19 20:59 07/05/19 20:22 Digoxin (Lanoxin) 0.125 mg DAILY ORAL 07/05/19 09:15 08/04/19 09:14 07/06/19 10:07 Docusate Sodium (Colace) 100 mg THREE TIMES A DAY ORAL 07/06/19 13:00 08/05/19 12:59 Furosemide (Lasix) 40 mg BID IV 07/04/19 18:00 08/03/19 08:59 07/05/19 17:46 Gabapentin (Neurontin) 100 mg THREE TIMES A DAY ORAL 07/04/19 10:00 08/03/19 09:59 07/06/19 10:08 Lidocaine (Xylocaine 5% cream) 1 applic Q6HR TOPIC 07/04/19 12:00 08/03/19 11:59 07/06/19 05:12 Lisinopril (ZestriL) 5 mg DAILY ORAL 07/05/19 09:30 08/04/19 09:29 07/05/19 09:37 Morphine Sulfate (Morphine Sulfate) 2 mg Q4H PRN IVP For Pain 07/03/19 23:00 07/10/19 22:59 07/06/19 11:06 Pantoprazole (Protonix) 40 mg EVERY 12 HOURS ORAL 07/06/19 11:00 08/05/19 10:59 Spironolactone (Aldactone) 25 mg DAILY ORAL 07/04/19 09:00 08/03/19 08:59 07/05/19 09:00 Frank Baca MD Jul 06, 2019 13:29
--- NOTE | 2019-07-06 14:20 | NUR ---
NURSE NOTES: Pt received discharged order with home health, pt refused most treatments, however, pt accepted discharge, pt took belongings, refused to sign all paper work for discharge, pt was walked to [facility] and shown where bus station is. vital sign WNL, denies pain, pt refused any other medication. states he will follow up with his PMD
--- NOTE | 2019-07-06 14:24 | NUR ---
*-*DISCHARGED PLANNED*-* PATIENT HAS BEEN ACCEPTED AT: [facility] P: [phone] F: [phone]
--- NOTE | 2019-07-06 14:40 | NUR ---
*-* INSURANCE*-*- CLINICALS HAVE BEEN FAXED TO: [facility] P: [phone] F: [phone] Addendum: 07/06/19 at 1451 by AINSLEY VACA CM *-* INSURANCE *-* ALL CLINICALS AND REVIEWS HAVE BEEN FAXED TO: [facility] P: [phone] F: [phone] REF# [id number]
--- NOTE | 2019-07-06 17:23 | Cardiology Progress Note ---
Assessment/Plan Assessment/Plan 1. New onset dilated cardiomyopathy with severe LV systolic dysfunction and LVEF at 15%, drop of LVEF from 55% measured in 2015, require right and left heart cath to rule out CAD. The patient is refusing this test now and do not wish to be transferred out. He realizes the risk of his actions which may include . Dr. Blair ghost writer also notified. Optimize guideline recommended therapy for heart failure. 2. Severe pulmonary HTN due to left heart failure, continue diuretics. 3. MARGUERITE, probably cardiorenal syndrome, creat down to 1.4. 4. Acute combined systolic and diastolic CHF. 5. Small pericardial effusion likely element of right heart failure. Subjective Subjective Sinus rhythm at rate of 82. Objective Last 24 Hour Vital Signs Date Time Temp Pulse Resp B/P (MAP) Pulse Ox O2 Delivery O2 Flow Rate FiO2 07/06/19 11:00 82 07/06/19 10:07 82 07/06/19 09:00 Nasal Cannula 2.0 07/06/19 09:00 80 100/80 07/06/19 09:00 100/82 07/06/19 04:00 2.0 07/06/19 04:00 98.1 97 18 109/75 (86) 98 07/06/19 04:00 91 07/06/19 00:00 108 07/06/19 00:00 98.0 105 16 120/76 (91) 98 07/05/19 23:56 124 07/05/19 21:00 Nasal Cannula 2.0 07/05/19 20:22 105 114/74 07/05/19 20:00 102 07/05/19 20:00 99.0 93 20 114/74 (87) 96 109 07/05/19 20:00 2.0 07/05/19 17:38 2.0 Intake and Output 07/05/19 07/06/19 19:00 07:00 Intake Total 930 ml Output Total 2000 ml Balance -1070 ml Intake Oral 930 ml Output Urine Total 2000 ml 2D Echo: DCM, LVEF 15%, Restricitve LV physio, Gloabl LV HK, RAP 15, RVSP 53, Mod MR Laboratory Tests Test 07/06/19 05:27 Sodium Level 142 MMOL/L (136-145) Potassium Level 4.1 MMOL/L (3.5-5.1) Chloride Level 104 MMOL/L (98-107) Carbon Dioxide Level 31 MMOL/L (21-32) Anion Gap 7 mmol/L (5-15) Blood Urea Nitrogen 24 mg/dL (7-18) H Creatinine 1.4 MG/DL (0.55-1.30) H Estimat Glomerular Filtration Rate > 60 mL/min (>60) Glucose Level 89 MG/DL (74-106) Uric Acid 9.5 MG/DL (2.6-7.2) H Calcium Level 8.7 MG/DL (8.5-10.1) Phosphorus Level 4.3 MG/DL (2.5-4.9) Magnesium Level 1.6 MG/DL (1.8-2.4) L Iron Level 35 ug/dL (50-175) L Total Iron Binding Capacity 433 ug/dL (250-450) Percent Iron Saturation 8 % (15-50) L Unsaturated Iron Binding 398 ug/dL (112-346) H Ferritin 29 NG/ML (8-388) Total Bilirubin 0.5 MG/DL (0.2-1.0) Aspartate Amino Transf (AST/SGOT) 30 U/L (15-37) Alanine Aminotransferase (ALT/SGPT) 19 U/L (12-78) Alkaline Phosphatase 88 U/L (46-116) C-Reactive Protein, Quantitative 1.3 mg/dL (0.00-0.90) H Pro-B-Type Natriuretic Peptide 2370 pg/mL (0-125) H Total Protein 7.3 G/DL (6.4-8.2) Albumin 3.3 G/DL (3.4-5.0) L Globulin 4.0 g/dL Albumin/Globulin Ratio 0.8 (1.0-2.7) L Digoxin Level < 0.2 NG/ML (0.5-2.0) L Objective Head: normocephalic, atraumatic, bilateral eye PERRL, bilateral eye EOMI. Neck: JVP elevated at 10 cm, no carotid bruit. Respiratory: Bibasilar crackles Cardiovascular: regular rate, rhythm, normal S1S2, no murmurs, gallops or rubs. Gastrointestinal: non tender, soft, non-distended, + BS, no HSM. Musculoskeletal: 2+ B/L LE edema Spenser Fitzpatrick MD Jul 06, 2019 17:23
--- NOTE | 2019-07-06 20:06 | Hematology/Onc Progress Note ---
Assessment/Plan Assessment/Plan Assessment and Recs: # Thrombocytopenia - potential causes multifactorial, evaluate liver and viral etiologies to begin, also could be related to underlying medications patient has received. HIV is neg --> Hep panel and HIV ordered (hiv neg) --> US abd to evaluate for cirrhosis and hsm ordered --> Peripheral smear ordered to evaluate for blasts /schistocytes --> abx and other meds have been reviewed --> ok for ppx if plt >50k w/ either heparin or lovenox --> Transfuse if Plt < 20k and fever, or if Plt < 10k without fever # Anemia of chronic disease due to underlying chronic medical issues, multifactorial v Gi bleed --> Anemia workup has been ordered, rule out gi bleed --> No evidence of hemolysis is noted, peripheral smear has been reviewed. --> Hgb goal >7. Transfuse prn. --> Epogen or iron at this time is not particularly indicated --> Medications have been reviewed --> hgb 10.4-->10.2 # New onset dilated cardiomyopathy with severe LV systolic dysfunction and LVEF at 15%, drop of LVEF from 55% measured in 2015, require right and left heart cath to rule out CAD. --> patient is refusing this test now and do not wish to be transferred out. He realizes the risk of his actions which may include . Dr. Blair web project manager also notified. In the meantime we ll continue guideline recommended therapy for heart failure. --> as per cards recs # Severe pulmonary HTN due to left heart failure, continue diuretics. --> pulm consulted # MARGUERITE, probably cardiorenal syndrome. --> per Dr. Cody # Acute combined systolic and diastolic CHF. # Small pericardial effusion likely element of right heart failure Appreciate consultation and eladio RN Subjective Allergies: Coded Allergies: SIMVASTATIN (Verified Allergy, Unknown, 07/03/19) Subjective 07/06: awake and alert, no acute distress, dc planning Objective Objective Last 24 Hour Vital Signs Date Time Temp Pulse Resp B/P (MAP) Pulse Ox O2 Delivery O2 Flow Rate FiO2 07/06/19 11:00 82 07/06/19 10:07 82 07/06/19 09:00 Nasal Cannula 2.0 07/06/19 09:00 80 100/80 07/06/19 09:00 100/82 07/06/19 04:00 2.0 07/06/19 04:00 98.1 97 18 109/75 (86) 98 07/06/19 04:00 91 07/06/19 00:00 108 07/06/19 00:00 98.0 105 16 120/76 (91) 98 07/05/19 23:56 124 07/05/19 21:00 Nasal Cannula 2.0 07/05/19 20:22 105 114/74 07/05/19 20:00 102 07/05/19 20:00 99.0 93 20 114/74 (87) 96 109 07/05/19 20:00 2.0 07/05/19 17:38 2.0 07/05/19 16:00 98.0 96 20 129/79 (96) 96 89 07/05/19 16:00 103 07/05/19 12:00 102 07/05/19 12:00 2.0 07/05/19 12:00 98.2 93 20 121/76 (91) 96 96 07/05/19 11:41 Nasal Cannula 2.0 07/05/19 11:36 2.0 07/05/19 09:39 88 07/05/19 09:37 114/74 07/05/19 08:00 97.5 99 20 111/75 (87) 96 99 07/05/19 08:00 71 07/05/19 04:15 88 07/05/19 04:00 98.0 99 20 114/74 (87) 94 99 07/05/19 04:00 2.0 07/05/19 00:00 98.0 97 20 104/64 (77) 97 97 07/04/19 23:29 92 07/04/19 21:00 Nasal Cannula 2.0 Intake and Output 07/05/19 07/06/19 19:00 07:00 Intake Total 930 ml Output Total 2000 ml Balance -1070 ml Intake Oral 930 ml Output Urine Total 2000 ml Labs Test 07/03/19 20:53 07/05/19 03:50 07/05/19 11:15 07/06/19 05:27 Troponin I 0.044 ng/mL (0.000-0.056) White Blood Count 4.8 K/UL (4.8-10.8) Red Blood Count 3.26 M/UL (4.70-6.10) Hemoglobin 10.4 G/DL (14.2-18.0) Hematocrit 31.4 % (42.0-52.0) Mean Corpuscular Volume 96 FL (80-99) Mean Corpuscular Hemoglobin 31.7 PG (27.0-31.0) Mean Corpuscular Hemoglobin Concent 33.0 G/DL (32.0-36.0) Red Cell Distribution Width 14.5 % (11.6-14.8) Platelet Count 114 K/UL (150-450) Mean Platelet Volume 7.5 FL (6.5-10.1) Neutrophils (%) (Auto) 61.4 % (45.0-75.0) Lymphocytes (%) (Auto) 24.0 % (20.0-45.0) Monocytes (%) (Auto) 10.6 % (1.0-10.0) Eosinophils (%) (Auto) 2.8 % (0.0-3.0) Basophils (%) (Auto) 1.2 % (0.0-2.0) Sodium Level 141 MMOL/L (136-145) 142 MMOL/L (136-145) Potassium Level 4.2 MMOL/L (3.5-5.1) 4.1 MMOL/L (3.5-5.1) Chloride Level 103 MMOL/L (98-107) 104 MMOL/L (98-107) Carbon Dioxide Level 30 MMOL/L (21-32) 31 MMOL/L (21-32) Anion Gap 8 mmol/L (5-15) 7 mmol/L (5-15) Blood Urea Nitrogen 24 mg/dL (7-18) 24 mg/dL (7-18) Creatinine 1.5 MG/DL (0.55-1.30) 1.4 MG/DL (0.55-1.30) Estimat Glomerular Filtration Rate 59.5 mL/min (>60) > 60 mL/min (>60) Glucose Level 114 MG/DL (74-106) 89 MG/DL (74-106) Calcium Level 8.7 MG/DL (8.5-10.1) 8.7 MG/DL (8.5-10.1) Pro-B-Type Natriuretic Peptide 2105 pg/mL (0-125) 2106 pg/mL (0-125) 2370 pg/mL (0-125) Hemoglobin A1c 6.6 % (4.3-6.0) Uric Acid 9.7 MG/DL (2.6-7.2) 9.5 MG/DL (2.6-7.2) Phosphorus Level 3.9 MG/DL (2.5-4.9) 4.3 MG/DL (2.5-4.9) Magnesium Level 1.5 MG/DL (1.8-2.4) 1.6 MG/DL (1.8-2.4) Gamma Glutamyl Transpeptidase 62 U/L (5-85) C-Reactive Protein, Quantitative 1.5 mg/dL (0.00-0.90) 1.3 mg/dL (0.00-0.90) Triglycerides Level 17 MG/DL (30-150) Cholesterol Level 141 MG/DL (< 200) LDL Cholesterol 81 mg/dL (<100) HDL Cholesterol 57 MG/DL (40-60) Cholesterol/HDL Ratio 2.5 (3.3-4.4) Vitamin B12 Level 838 PG/ML (193-986) Folate 16.2 NG/ML (8.6-58.9) Thyroid Stimulating Hormone (TSH) 2.919 uiU/mL (0.358-3.740) Hepatitis A IgM Antibody Negative (Negative) Hepatitis B Surface Antigen Negative (Negative) Hepatitis B Core IgM Antibody Negative (Negative) Hepatitis C Antibody <0.1 s/co ratio Iron Level 35 ug/dL (50-175) Total Iron Binding Capacity 433 ug/dL (250-450) Percent Iron Saturation 8 % (15-50) Unsaturated Iron Binding 398 ug/dL (112-346) Ferritin 29 NG/ML (8-388) Total Bilirubin 0.5 MG/DL (0.2-1.0) Aspartate Amino Transf (AST/SGOT) 30 U/L (15-37) Alanine Aminotransferase (ALT/SGPT) 19 U/L (12-78) Alkaline Phosphatase 88 U/L (46-116) Total Protein 7.3 G/DL (6.4-8.2) Albumin 3.3 G/DL (3.4-5.0) Globulin 4.0 g/dL Albumin/Globulin Ratio 0.8 (1.0-2.7) Digoxin Level < 0.2 NG/ML (0.5-2.0) Height (Feet): 5 Height (Inches): 6.00 Weight (Pounds): 190 Objective Physical Exam: Vitals: reviewed General: NAD Neck: supple Chest: clear breath sounds bilaterally noted crackles+++ Cardiovascular: RRR, no s3, s4 Abdomen: soft, nontender, nd Extremities: no cce, normal range of motion Mental: alert Mihai Jean MD Jul 06, 2019 20:06
--- NOTE | 2019-07-08 14:10 | Discharge Summary ---
Discharge Summary Discharge Summary _ DATE OF ADMISSION: 07/03/2019 DATE OF DISCHARGE: 07/06/2019 DISCHARGED BY: Dr. Felisa Pruitt CONSULTANTS: Dr. Mihai Kimble BRIEF HOSPITAL COURSE: Patient is a 53-year-old male, who presented to ED for complaints of mid sternal chest pain. Symptoms started while [facility]. Pain radiated to the neck bilaterally. He denied any shortness of breath. Denied pleurisy. Patient had missed multiple hospitalizations for CHF. He did not feel short of breath. He denied any flank pain. Denied any recent travel. Denied any fever or chills. He has medical history significant for COPD hypertension. Upon evaluation at ED, blood pressure was normal. He was slightly tachycardic. Blood work did not show any leukocytosis. Hemoglobin 11, hematocrit 33. Electrolytes were normal. Troponin was negative. proBNP was elevated to 3309. Urine toxicology screen was negative. Chest x-ray showed pulmonary venous congestion and mild cardiomegaly. He was admitted for CHF. He complained of bilateral bilateral lower extremity pain. He was given morphine and Neurontin. He was prescribed lidocaine cream. While in telemetry, patient had a run of nonsustained ventricular tachycardia of 13 beats. Urine toxicology was negative. He was given anti-failure therapy. Continued on Coreg, Lasix and Aldactone. Patient had new onset dilated cardiomyopathy seen on echocardiogram with severe LV systolic dysfunction and LVEF of 15%, a drop of LVEF from 55% measured in 2015. Patient was recommended would require right and heart cath to rule out CAD, but patient refused. Patient aware of the risk of his actions which may include . Guideline recommended therapy was optimized. He had small pericardial effusion,, likely element of right heart failure. Patient would also need life vest but was very noncompliant. Creatinine was elevated. Kidney function monitored. MARGUERITE, possibly cardiorenal syndrome. Patient was noted to have thrombocytopenia and anemia. Hepatitis panel was negative. HIV was reported to be negative. He refused IV iron. There was no evidence of hemolysis. Abdominal ultrasound showed borderline splenomegaly possible portal hypertension. Patient was then discharged home with home health. Aware of risks that may include do to refusal for heart cath. FINAL DIAGNOSES: New onset cardiomyopathy with severe LV systolic dysfunction and LVEF drop of 15 % from 55% in 2015 Severe pulmonary hypertension due to left heart failure Acute kidney injury, probably cardiorenal syndrome Acute combined systolic and diastolic CHF Small pericardial effusion likely element of right heart failure Pulmonary edema Hypertension Nonsustained ventricular tachycardia up to 13 beats Pulmonary hypertension Anemia chronic disease Peripheral vascular disease DISPOSITION: Home with home health DISCHARGE MEDICATIONS: Refer to Discharge Medication List. DISCHARGE INSTRUCTIONS: Follow-up in a week. I have been assigned to complete a discharge summary on this account, I was not involved with the patient's management.--BRENDEN Lorenzana Jacqueline Robles NP Jul 08, 2019 14:10
--- NOTE | 2019-07-09 20:45 | Consultation ---
DATE OF CONSULTATION: 07/03/2019 CARDIOLOGY CONSULTATION CONSULTING PHYSICIAN: Spenser Fitzpatrick M.D. REFERRING PHYSICIAN: Felisa Blair M.D. REASON FOR CONSULTATION: Management of chest pain. HISTORY OF PRESENT ILLNESS: The patient is a very unfortunate 53-year-old gentleman, who presents to the hospital with complaints of chest pain described as midsternal pain with radiation to the neck as well as back. Current pain was going across both sides of the chest. His cardiovascular history is significant for multiple hospitalizations for congestive heart failure. He states that he has been compliant with his heart failure regimen. In addition to chest pain, he has complaints of shortness of breath. His last admission to this facility was in May 2014 when he had 2D echocardiography. At that time, he was found to have normal LV systolic function with LVEF of 55%, moderate left ventricular hypertrophy, moderate biatrial enlargement, and normal right ventricular systolic pressure measured at 23 mmHg. At the time of arrival to this facility, his chest x-ray showed cardiomegaly with borderline pulmonary venous congestion. Laboratory data in the emergency department showed leukocytosis with WBC count of 12.9 and creatinine of 1.2. His laboratory data revealed elevation of BUN and creatinine at 24 and 1.5, normal troponin I level at 0.032, and increased pro-brain natriuretic peptide of 3309. He was admitted to telemetry for further evaluation and management. Of note, his 12-lead electrocardiogram showed sinus rhythm at rate of [address] and T-wave abnormalities, right axis deviation, and incomplete right bundle-branch block. The patient was admitted to telemetry for further evaluation and management. Cardiology consultation was made at the request of Dr. Blair for evaluation of chest pain and possible heart failure. PAST MEDICAL HISTORY: 1. Hypertension. 2. COPD. 3. Hypertensive heart disease with LVEF at 55% determined on echocardiography in 2014. 4. Chronic kidney disease. PAST SURGICAL HISTORY: None. ALLERGIES: Simvastatin. MEDICATIONS: List of medication includes hydrochlorothiazide 12.5 mg daily and furosemide 20 mg daily. SOCIAL HISTORY: Denies any tobacco, alcohol, or illicit drug use. REVIEW OF SYSTEMS: HEENT: Denies any headache, diplopia, or blurred vision. CONSTITUTIONAL: Denies any fever, chills, nausea, or weight loss. CARDIOVASCULAR: Complains of chest pain and shortness of breath. Denies any leg edema, orthopnea or PND, palpitations or syncope. PULMONARY: Positive for shortness of breath, but no hemoptysis or wheezing. GASTROINTESTINAL: Denies any nausea, vomiting, diarrhea, constipation, abdominal pain, or GI bleed. GENITOURINARY: Denies any hematuria, dysuria, or incontinence. NEUROLOGICAL: Denies any motor dysfunction, sensory deficit, or altered speech. PHYSICAL EXAMINATION: VITAL SIGNS: Blood pressure was 122/93, pulse of 104, respirations 16, and temperature 98.1 degrees Fahrenheit. O2 saturation 98% on room air. GENERAL: The patient is a very unfortunate 53-year-old gentleman, in no apparent respiratory distress. HEENT: Atraumatic and normocephalic. Anicteric. Pupils are equal, round, and reactive to light and accommodation. Extraocular muscles are intact. NECK: JVP less than 5 cm. No carotid bruit. Carotid upstrokes 2+ bilaterally. CARDIOVASCULAR: Normal S1 and S2. Regular rate and rhythm. No murmurs, gallops, or rubs. PMI is at fourth intercostal space in the midclavicular line. LUNGS: Clear to auscultation bilaterally. ABDOMEN: Soft, nontender, and nondistended. No hepatosplenomegaly. Positive bowel sounds. EXTREMITIES: There is a 2+ bilateral lower extremity edema. LABORATORY FINDINGS: WBC was 5.7, hemoglobin 10.6, hematocrit 32.6, and platelet count 122,000. Sodium was 141, potassium 3.8, chloride 103, bicarbonate 28, BUN 24, and creatinine 1.5. Glucose is 144 and calcium is 8.2. Troponin I x1 negative 0.032. ProBNP was 3309. ASSESSMENT AND PLAN: The patient is a very unfortunate 53-year-old gentleman, seen in Cardiology consultation. 1. Chest pain most likely an acute heart failure, normal EF, as chest x-ray shows cardiomegaly with evidence of pulmonary edema and cephalization all in favor of heart failure. We will obtain another 2D echocardiography and compare with the one that we had in 2015 when the left ventricular ejection fraction was 55%. Further therapeutic and diagnostic decision will be based on the results of the echocardiography. 2. Chronic kidney disease with some component of acute kidney injury. Creatinine back in 2015 was 1.2 and currently up to 1.5. 3. Most likely noncompliance with medication. Apparently, the patient is only on Lasix therapy. 4. History of chronic obstructive pulmonary disease. I would like to thank for the courtesy of this consultation. Spenser Fitzpatrick M.D. DR: DEVIKA JOB#: [id number] CC:
== END 2019-07-06 14:24 | disposition home health service (06) | DRG 194 ==
LOC: EDBD 10:03 → EMR 12:24 → EDBEDREQ 13:33 → 2W 17:19 → 2E 07-05 08:13
DX: I13.0 Hypertensive heart and chronic kidney disease with heart failure and stage 1 through stage 4 chronic kidney disease, or unspecified chronic kidney disease (principal); I50.43 Acute on chronic combined systolic (congestive) and diastolic (congestive) heart failure; N17.9 Acute kidney failure, unspecified; R07.9 Chest pain, unspecified; I27.20 Pulmonary hypertension, unspecified; I42.0 Dilated cardiomyopathy; M19.90 Unspecified osteoarthritis, unspecified site; I47.2 Ventricular tachycardia; N18.9 Chronic kidney disease, unspecified; I31.3 Pericardial effusion (noninflammatory); D63.8 Anemia in other chronic diseases classified elsewhere; I73.9 Peripheral vascular disease, unspecified; Z88.8 Allergy status to other drugs, medicaments and biological substances; J96.00 Acute respiratory failure, unspecified whether with hypoxia or hypercapnia; D69.6 Thrombocytopenia, unspecified; G62.9 Polyneuropathy, unspecified
CPT/HCPCS: 36415; 71045; 76700; 80048; 80053; 80061; 80162; 80307; 82550; 82607; 82728; 82746; 82977; 83036; 83540; 83550; 83690; 83735; 83880; 84100; 84443; 84484; 84550; 85025; 86140; 86705; 86709; 86803; 87340; 93005; 93306; 93970; 96374; 96375; 96376; 99285

== ENCOUNTER 2019-08-13 14:03 | Inpatient (IN) | payer MEDICARE, MEDICAID ==
[~2019-08-13] VITALS: Ht 175.3 cm; Wt 93.4 kg
[~2019-08-13 14:03] MED LIST: FUROSEMIDE20 M1 ORAL; HYDROCHLOROTH12.5 MG ORAL
--- NOTE | 2019-08-13 14:10 | NUR ---
ED Nurse Note: Pt brought in by ambulance, just discharged from [facility]. Pt has CP since 1200 today 8/10 L chest radiating to L arm. Pt states he also has GANDHI, no nausea or vomiting. He has history of [facility]. Pt is alert and orientedx4, ambulatory. Pt is set up on monitor.
[2019-08-13 14:20] VITALS: BP 124/81
--- NOTE | 2019-08-13 15:09 | NUR ---
ED Nurse Note: 2 RBNs attempted lab draw unsuccessfully. autobody technician Sunita called and he said he will be here soon for lab draw.
--- NOTE | 2019-08-13 15:29 | Diagnostic Imaging Report ---
Indication: Dyspnea Comparison: 07/03/2019 A single view chest radiograph was obtained. Findings: There is a marked enlargement of the cardiac silhouette which appears stable compared to last study. The lungs are clear. Pulmonary vascularity is within normal limits. The bones are unremarkable. IMPRESSION: Cardiomegaly.
[2019-08-13 16:00] LABS: HEMATOCRIT 34.2 % (42.0-52.0); HEMOGLOBIN 10.6 G/DL (14.2-18.0); MEAN CORPUSCULAR VOLUME 98 FL (80-99); PLATELET COUNT 93 K/UL (150-450); RED BLOOD COUNT 3.48 M/UL (4.70-6.10); RED CELL DISTRIBUTION WIDTH 17.7 % (11.6-14.8); WHITE BLOOD COUNT 5.5 K/UL (4.8-10.8)
[2019-08-13 16:07] LABS: ANION GAP 9 mmol/L (5-15); BLOOD UREA NITROGEN 28 mg/dL (7-18); CALCIUM 8.7 MG/DL (8.5-10.1); CARBON DIOXIDE 30 MMOL/L (21-32); CHLORIDE 103 MMOL/L (98-107); CREATININE 1.2 MG/DL (0.55-1.30); POTASSIUM 4.4 MMOL/L (3.5-5.1); SODIUM 142 MMOL/L (136-145)
[2019-08-13 16:17] LABS: ALANINE AMINOTRANSFERASE 22 U/L (12-78); ALBUMIN 3.4 G/DL (3.4-5.0); ALKALINE PHOSPHATASE 88 U/L (46-116); ASPARTATE AMINO TRANSFERASE 34 U/L (15-37); BILIRUBIN,TOTAL 0.6 MG/DL (0.2-1.0)
[2019-08-13] MEDS ORDERED: Furosemide 40mg tab ORAL ONE (16:45)
--- NOTE | 2019-08-13 16:49 | Emergency Room Report ---
History of Present Illness General Chief Complaint: Chest Pain Source: Patient, EMS Present Illness HPI Patient presents with complaints of midsternal chest pain Reports that he was at [facility] earlier today left the hospital he was not feeling Much better And while on the bus experienced the pain again and presents to the ER Denies any vomiting or diarrhea denies any recent travel patient also reports having congestive heart failure and describes exertional dyspnea Denies any obvious cough denies any fevers denies any contact with known covid patient's COVID-19 risk:Contact w/high r: No COVID-19 risk:Travel to affect: No Has patient experienced campos: No Allergies: Coded Allergies: SIMVASTATIN (Verified Allergy, Unknown, 07/03/19) Uncoded Allergies: STATINS (Allergy, Unknown, 08/13/19) Patient History Past Medical History: see triage record Reviewed Nursing Documentation: PMH: Agreed; PSxH: Agreed Nursing Documentation-PMH Past Medical History: No History, Except For Hx Cardiac Problems: Yes - chf, htn, stemi, hyperthyroid Hx Hypertension: Yes Hx COPD: Yes Hx Cancer: No Hx Gastrointestinal Problems: No Hx Neurological Problems: No Review of Systems All Other Systems: negative except mentioned in HPI Physical Exam Vital Signs Date Time Temp Pulse Resp B/P (MAP) Pulse Ox O2 Delivery O2 Flow Rate FiO2 08/13/19 13:56 99.1 99 19 126/80 (95) 95 Room Air 08/13/19 14:20 97 Sp02 EP Interpretation: reviewed, normal General Appearance: mild distress Eyes: bilateral eye PERRL, bilateral eye EOMI ENT: hearing grossly normal, EOM grossly intact Neck: supple Respiratory: crackles - Lower lobes mildly tachypneic Cardiovascular #1: regular rate, rhythm Gastrointestinal: non tender, soft Musculoskeletal: other - Moving extremities equally however significantly edematous bilaterally lower legs Neurologic: alert, oriented x3 Skin: other - as Above Lymphatic: no adenopathy Medical Decision Making Diagnostic Impression: Primary Impression: CHF (congestive heart failure) Additional Impression: ACS (acute coronary syndrome) ER Course Patient is a fairly complex patient with multiple differential to consideration including but not limited to cardiac cardiopulmonary and vascular emergencies Patient troponin is mildly elevated BNP also elevated patient appeared somewhat tachypneic And given the comorbidities and history Will require further diuresis and inpatient care Labs Test 08/13/19 15:40 08/13/19 18:21 White Blood Count 5.5 K/UL (4.8-10.8) Red Blood Count 3.48 M/UL (4.70-6.10) Hemoglobin 10.6 G/DL (14.2-18.0) Hematocrit 34.2 % (42.0-52.0) Mean Corpuscular Volume 98 FL (80-99) Mean Corpuscular Hemoglobin 30.5 PG (27.0-31.0) Mean Corpuscular Hemoglobin Concent 31.0 G/DL (32.0-36.0) Red Cell Distribution Width 17.7 % (11.6-14.8) Platelet Count 93 K/UL (150-450) Mean Platelet Volume 8.8 FL (6.5-10.1) Neutrophils (%) (Auto) % (45.0-75.0) Lymphocytes (%) (Auto) % (20.0-45.0) Monocytes (%) (Auto) % (1.0-10.0) Eosinophils (%) (Auto) % (0.0-3.0) Basophils (%) (Auto) % (0.0-2.0) Differential Total Cells Counted 100 Neutrophils % (Manual) 71 % (45-75) Lymphocytes % (Manual) 15 % (20-45) Monocytes % (Manual) 9 % (1-10) Eosinophils % (Manual) 3 % (0-3) Basophils % (Manual) 2 % (0-2) Band Neutrophils 0 % (0-8) Platelet Estimate Decreased Platelet Morphology Normal Hypochromasia 1+ Anisocytosis 1+ Sodium Level 142 MMOL/L (136-145) Potassium Level 4.4 MMOL/L (3.5-5.1) Chloride Level 103 MMOL/L (98-107) Carbon Dioxide Level 30 MMOL/L (21-32) Anion Gap 9 mmol/L (5-15) Blood Urea Nitrogen 28 mg/dL (7-18) Creatinine 1.2 MG/DL (0.55-1.30) Estimat Glomerular Filtration Rate > 60 mL/min (>60) Glucose Level 80 MG/DL (74-106) Calcium Level 8.7 MG/DL (8.5-10.1) Total Bilirubin 0.6 MG/DL (0.2-1.0) Aspartate Amino Transf (AST/SGOT) 34 U/L (15-37) Alanine Aminotransferase (ALT/SGPT) 22 U/L (12-78) Alkaline Phosphatase 88 U/L (46-116) Troponin I 0.061 ng/mL (0.000-0.056) Pro-B-Type Natriuretic Peptide 5087 pg/mL (0-125) Total Protein 6.9 G/DL (6.4-8.2) Albumin 3.4 G/DL (3.4-5.0) Globulin 3.5 g/dL Albumin/Globulin Ratio 1.0 (1.0-2.7) EKG Diagnostic Results Rate: normal Rhythm: NSR ST Segments: other - Nonspecific ST and T wave changes Rhythm Strip Diag. Results EP Interpretation: yes Rate: 78 Rhythm: NSR, no PVC's, no ectopy Chest X-Ray Diagnostic Results Chest X-Ray Diagnostic Results : Chest X-Ray Ordered: Yes # of Views/Limited/Complete: 1 View Indication: Shortness of Breath EP Interpretation: Yes Interpretation: no consolidation, no effusion, no pneumothorax, other - cardiomegaly mild congestion Impression: Other - Cardiomegaly mild congestion Electronically Signed by: Felisa Sharif DO Last Vital Signs Date Time Temp Pulse Resp B/P (MAP) Pulse Ox O2 Delivery O2 Flow Rate FiO2 08/13/19 14:20 99.1 97 18 124/81 95 Room Air 08/13/19 14:20 97 Status: improved Disposition: ADMITTED INPATIENT Condition: Serious Referrals: NOT CHOSEN IPA/,REFERRING (PCP) Felisa Sharif DO Aug 13, 2019 16:49
[2019-08-13 17:00] VITALS: BP 135/82
--- NOTE | 2019-08-13 17:41 | NUR ---
ED Nurse Note: Spoke to Dr Bush about pt not having IV after 3 RN attempted. He states he will speak to Dr Blair and no IV needed right now.
--- NOTE | 2019-08-13 18:07 | NUR ---
ED Nurse Note: Lab contacted reagrding repeat troponin level. Said Chrystal tech will come draw lab.
[2019-08-13] MEDS ORDERED: HYDROcodone/Acetamin 5/325 tab ORAL ONE (18:30)
--- NOTE | 2019-08-13 21:10 | NUR ---
TRANSFER TO FLOOR: Patient transferred to as ordered, per Dr Blair. Report given to GENTRY Gonzalez. Belongings and medications given to . Family and or S/O informed of transfer.
--- NOTE | 2019-08-13 21:30 | NUR ---
NURSE NOTES: Received patient from ED. Patient on 3L NC, no signs of respiratory distress. BP 108/82, HR 92. Bed in low position, locked, call light within reach. Oriented patient to the room. Patient is alert and oriented x4. Ambulates independently.
--- NOTE | 2019-08-13 22:40 | NUR ---
NURSE NOTES: Notified Dr. Blair requesting admit orders. Patient brought in pill bottles, all filled this month. Instructed to continue all home meds.
[2019-08-13] MEDS: Augmentin 875mg Tab ORAL SCH (23:02)
[2019-08-13 23:15] VITALS: BP 108/82
[2019-08-14] VITALS (8 sets, daily range): BP systolic 112–149; BP diastolic 66–87
[2019-08-14] MEDS ORDERED: LISINOPRIL5 MG ORAL (02:27)
[2019-08-14] MEDS ORDERED: FUROSEMIDE40 MG ORAL (02:27)
[2019-08-14] MEDS ORDERED: APRESOLINE10 MG ORAL (02:27)
[2019-08-14] MEDS ORDERED: PROTONIX40 M2 GT (02:27)
[2019-08-14] MEDS ORDERED: AUGMENTIN 875-1 EAC1 ORAL (02:27)
[2019-08-14] MEDS ORDERED: DIGOXIN0.125 MG/2 ORAL (02:27)
[2019-08-14] MEDS ORDERED: COREG6.25 MG ORAL (02:27)
[2019-08-14] MEDS ORDERED: LIPITOR40 MG ORAL (02:27)
[2019-08-14] MEDS ORDERED: ASPIRIN81 M3 PO (02:27)
[2019-08-14] MEDS: HydrALAZINE 10mg Tab ORAL SCH ×4 (05:53→21:46)
--- NOTE | 2019-08-14 06:24 | Consultation ---
History of Present Illness General Chief Complaint: Chest Pain Present Illness Allergies: Coded Allergies: SIMVASTATIN (Verified Allergy, Unknown, 07/03/19) Uncoded Allergies: STATINS (Allergy, Unknown, 08/13/19) Medication History Scheduled Amoxicillin/Potassium Clav 875-125* (Augmentin 875-125 Tablet*), 1 TAB ORAL TWICE A DAY, (Reported) Atorvastatin Calcium* (Lipitor*), 40 MG ORAL BEDTIME, (Reported) Carvedilol (Coreg), 6.25 MG ORAL EVERY 12 HOURS, (Reported) Digoxin* (Digoxin*), 0.125 MG ORAL DAILY, (Reported) Furosemide* (Lasix*), Unknown Dose ORAL DAILY, (Reported) Furosemide* (Lasix*), 40 MG ORAL DAILY, (Reported) Hydralazine HCl (Hydralazine HCl), 10 MG ORAL EVERY 8 HOURS, (Reported) Hydrochlorothiazide* (Hydrochlorothiazide*), Unknown Dose ORAL DAILY, (Reported) Lisinopril (Lisinopril*), 5 MG ORAL DAILY, (Reported) Pantoprazole Sodium (Protonix), 40 MG GT DAILY, (Reported) Miscellaneous Medications Aspirin (Aspirin), 81 MG PO, (Reported) Patient History Healthcare decision maker N Resuscitation status Full Code Advanced Directive on File Physical Exam Last 24 Hour Vital Signs Date Time Temp Pulse Resp B/P (MAP) Pulse Ox O2 Delivery O2 Flow Rate FiO2 08/14/19 05:55 124/85 08/14/19 05:52 93 124/85 (98) 08/14/19 04:00 94 08/14/19 04:00 97.0 92 22 129/87 (101) 99 08/14/19 00:00 91 08/14/19 00:00 97.7 85 21 117/81 (93) 98 08/13/19 23:15 97.7 92 20 108/82 (91) 98 08/13/19 22:00 Nasal Cannula 3.0 08/13/19 21:50 85 08/13/19 21:10 99.1 88 18 124/80 98 Nasal Cannula 3.0 97 08/13/19 20:15 99.1 08/13/19 17:37 99.1 08/13/19 17:00 99.1 92 16 135/82 97 Room Air 08/13/19 14:20 99.1 97 18 124/81 95 Room Air 08/13/19 14:20 99 19 Room Air 97 08/13/19 13:56 99.1 99 19 126/80 (95) 95 Room Air Intake and Output 08/13/19 08/14/19 19:00 07:00 Intake Total 0 ml Balance 0 ml Intake Oral 0 ml # Voids 2 Laboratory Tests Test 08/13/19 15:40 08/13/19 18:21 White Blood Count 5.5 K/UL (4.8-10.8) Red Blood Count 3.48 M/UL (4.70-6.10) L Hemoglobin 10.6 G/DL (14.2-18.0) L Hematocrit 34.2 % (42.0-52.0) L Mean Corpuscular Volume 98 FL (80-99) Mean Corpuscular Hemoglobin 30.5 PG (27.0-31.0) Mean Corpuscular Hemoglobin Concent 31.0 G/DL (32.0-36.0) L Red Cell Distribution Width 17.7 % (11.6-14.8) H Platelet Count 93 K/UL (150-450) L Mean Platelet Volume 8.8 FL (6.5-10.1) Neutrophils (%) (Auto) % (45.0-75.0) Lymphocytes (%) (Auto) % (20.0-45.0) Monocytes (%) (Auto) % (1.0-10.0) Eosinophils (%) (Auto) % (0.0-3.0) Basophils (%) (Auto) % (0.0-2.0) Differential Total Cells Counted 100 Neutrophils % (Manual) 71 % (45-75) Lymphocytes % (Manual) 15 % (20-45) L Monocytes % (Manual) 9 % (1-10) Eosinophils % (Manual) 3 % (0-3) Basophils % (Manual) 2 % (0-2) Band Neutrophils 0 % (0-8) Platelet Estimate Decreased L Platelet Morphology Normal Hypochromasia 1+ Anisocytosis 1+ Sodium Level 142 MMOL/L (136-145) Potassium Level 4.4 MMOL/L (3.5-5.1) Chloride Level 103 MMOL/L (98-107) Carbon Dioxide Level 30 MMOL/L (21-32) Anion Gap 9 mmol/L (5-15) Blood Urea Nitrogen 28 mg/dL (7-18) H Creatinine 1.2 MG/DL (0.55-1.30) Estimat Glomerular Filtration Rate > 60 mL/min (>60) Glucose Level 80 MG/DL (74-106) Calcium Level 8.7 MG/DL (8.5-10.1) Total Bilirubin 0.6 MG/DL (0.2-1.0) Aspartate Amino Transf (AST/SGOT) 34 U/L (15-37) Alanine Aminotransferase (ALT/SGPT) 22 U/L (12-78) Alkaline Phosphatase 88 U/L (46-116) Troponin I 0.061 ng/mL (0.000-0.056) 0.050 ng/mL (0.000-0.056) Pro-B-Type Natriuretic Peptide 5087 pg/mL (0-125) H Total Protein 6.9 G/DL (6.4-8.2) Albumin 3.4 G/DL (3.4-5.0) Globulin 3.5 g/dL Albumin/Globulin Ratio 1.0 (1.0-2.7) Height (Feet): 5 Height (Inches): 9.00 Weight (Pounds): 198 Medications Current Medications Medications (Trade) Dose Ordered Sig/Marybeth Route PRN Reason Start Time Stop Time Status Last Admin Dose Admin Acetaminophen (Tylenol) 650 mg Q4H PRN ORAL Mild Pain/Temp > 100.5 08/13/19 22:45 09/12/19 22:44 Amoxicillin/ Clavulanate Potassium (Augmentin) 875 mg EVERY 12 HOURS ORAL 08/13/19 22:45 08/20/19 22:44 08/13/19 23:02 Aspirin (ASA) 81 mg DAILY ORAL 08/14/19 09:00 09/28/19 08:59 Atorvastatin Calcium (Lipitor) 40 mg BEDTIME ORAL 08/14/19 21:00 11/12/19 20:59 Carvedilol (Coreg) 6.25 mg EVERY 12 HOURS ORAL 08/14/19 09:00 09/13/19 08:59 Digoxin (Lanoxin) 0.125 mg DAILY ORAL 08/14/19 09:00 11/12/19 08:59 Furosemide (Lasix) 40 mg DAILY ORAL 08/14/19 09:00 09/13/19 08:59 Hydralazine HCl (Apresoline) 10 mg Q8HR ORAL 08/14/19 06:00 11/12/19 05:59 Lisinopril (ZestriL) 5 mg DAILY ORAL 08/14/19 09:00 09/13/19 08:59 Pantoprazole (Protonix) 40 mg DAILY@0630 ORAL 08/14/19 06:30 09/13/19 06:29 08/14/19 05:53 Assessment/Plan Assessment/Plan: Heme Consultation REQ MD: Felisa Pruitt RFC: Thrombocytopenia, anemia DOS: 08/14/2019 ID 54y old male well known to me from prior adm, presents with complaints of midsternal chest pain he was at the bus stop when the pain started Pain radiates to the neck bilaterally denies any shortness of breath denies any pleurisy Patient has had multiple hospitalizations for CHF and he does feel short of breath as well Denies any flank pain denies any recent travel denies any fevers or chills Reviewed strategy planning consultant recs cards, renal, pulm from [facility] adm Allergies: SIMVASTATIN (Verified Allergy, Unknown, 07/03/19) Patient History Past Medical History: see triage record Reviewed Nursing Documentation: PMH: Agreed; PSxH: Agreed Nursing Documentation-PMH Past Medical History: No History, Except For Hx Hypertension: Yes Hx COPD: Yes ROS (review of systems): Constitutional: No fever, no chills, no night sweats, no fatigue Skin: No rashes, lumps, itchiness, dryness HEENT: No GANDHI, ear ache, visual changes, double vision, nosebleeds Breasts: No lumps, pain, discharge Pulmonary: ++ shortness of breath ++ bilateral rhonchi Cardiovascular: No chest pain, tightness, palpitations, syncope, PND GI: No nausea, vomiting, diarrhea, melena, hematochezia, change in appetite, : No dysuria, frequency, urgency, urinary incontinence, foamy urine Musculoskeletal: No joint swelling or muscle pain, trauma, back pain Neurologic: No dizziness, fainting, seizures, changes in smell or taste Psychiatric: No nervousness, stress, or depression, anxiety, hallucinations Endocrine: No weight change, heat or cold intolerance, tremor, insomnia Physical Exam: Vitals: reviewed General: NAD Neck: supple Chest: clear breath sounds bilaterally noted crackles+++ Cardiovascular: RRR, no s3, s4 Abdomen: soft, nontender, nd Extremities: n1+ edema, normal range of motion Mental: alert Labs: noted Imaging: reviewed Assessment and Recs: # Thrombocytopenia - potential causes multifactorial, evaluate liver and viral etiologies to begin, also could be related to underlying medications patient has received. HIV is neg --> Hep panel and HIV ordered (hiv neg) --> US abd to evaluate for cirrhosis and hsm ordered --> ++ SPLENOMEGALY IS NOTED --> Peripheral smear ordered to evaluate for blasts /schistocytes --> none noted --> abx and other meds have been reviewed --> ok for ppx if plt >50k w/ either heparin or lovenox --> Transfuse if Plt < 20k and fever, or if Plt < 10k without fever --> plt trend 93k # Anemia of iron deficiency, with a ferritin that was 29 --> Anemia workup has been ordered, rule out gi bleed --> No evidence of hemolysis is noted, peripheral smear has been reviewed. --> Hgb goal >7. Transfuse prn. --> Epogen or iron at this time is not particularly indicated --> Medications have been reviewed --> hgb 10.4-->10.2 # New onset dilated cardiomyopathy with severe LV systolic dysfunction and LVEF at 15%, drop of LVEF from 55% measured in 2015, require right and left heart cath to rule out CAD. --> patient is refusing this test now and do not wish to be transferred out. He realizes the risk of his actions which may include . Dr. Blair import dispatcher also notified. In the meantime we ll continue guideline recommended therapy for heart failure. --> as per cards recs # Severe pulmonary HTN due to left heart failure, continue diuretics. --> pulm consulted # MARGUERITE, probably cardiorenal syndrome. --> per renal # Acute combined systolic and diastolic CHF. # Small pericardial effusion likely element of right heart failure Appreciate consultation and dw Mihai Schafer MD Aug 14, 2019 06:24
--- NOTE | 2019-08-14 07:16 | NUR ---
HAND-OFF: Report given to Jayleen RINALDI.
--- NOTE | 2019-08-14 07:20 | NUR ---
NURSE NOTES: Received report from GENTRY Gonzalez. Observed pt eating breakfast. Pt A/O x4, denies any pain at the moment. No s/sx of acute distress. Pt is ambulatory. IV site on R FA 22g patent and asymptomatic. Bed on lowest position, call light within reach. Will continue plan of care.
--- NOTE | 2019-08-14 08:11 | NUR ---
NURSE NOTES: Reported troponin of 0.[address] Fitzpatrick.
[2019-08-14] MEDS: Aspirin Baby 81mg ORAL SCH (09:00)
[2019-08-14] MEDS ORDERED: Furosemide 40mg tab ORAL SCH (09:00)
[2019-08-14] MEDS: Augmentin 875mg Tab ORAL SCH ×2 (09:27→20:59)
[2019-08-14] MEDS: Digoxin 0.125mg tab ORAL SCH (09:27)
[2019-08-14] MEDS: Carvedilol 6.25mg Tab ORAL SCH ×2 (09:27→21:00)
[2019-08-14] MEDS: Lisinopril 2.5mg tab ORAL SCH (09:27)
--- NOTE | 2019-08-14 10:03 | Cardiology Progress Note ---
Assessment/Plan Assessment/Plan The patient is seen and examined, full consult note is dictated. Objective Last 24 Hour Vital Signs Date Time Temp Pulse Resp B/P (MAP) Pulse Ox O2 Delivery O2 Flow Rate FiO2 08/14/19 09:27 88 08/14/19 09:27 112/71 08/14/19 09:27 88 112/71 08/14/19 08:00 98.2 88 20 112/71 (85) 99 08/14/19 05:55 124/85 08/14/19 05:52 93 124/85 (98) 08/14/19 04:00 94 08/14/19 04:00 97.0 92 22 129/87 (101) 99 08/14/19 00:00 91 08/14/19 00:00 97.7 85 21 117/81 (93) 98 08/13/19 23:15 97.7 92 20 108/82 (91) 98 08/13/19 22:00 Nasal Cannula 3.0 08/13/19 21:50 85 08/13/19 21:10 99.1 88 18 124/80 98 Nasal Cannula 3.0 97 08/13/19 20:15 99.1 08/13/19 17:37 99.1 08/13/19 17:00 99.1 92 16 135/82 97 Room Air 08/13/19 14:20 99.1 97 18 124/81 95 Room Air 08/13/19 14:20 99 19 Room Air 97 08/13/19 13:56 99.1 99 19 126/80 (95) 95 Room Air Intake and Output 08/13/19 08/14/19 19:00 07:00 Intake Total 0 ml Balance 0 ml Intake Oral 0 ml # Voids 2 Laboratory Tests Test 08/13/19 15:40 08/13/19 18:21 08/14/19 05:33 White Blood Count 5.5 K/UL (4.8-10.8) Red Blood Count 3.48 M/UL (4.70-6.10) L Hemoglobin 10.6 G/DL (14.2-18.0) L Hematocrit 34.2 % (42.0-52.0) L Mean Corpuscular Volume 98 FL (80-99) Mean Corpuscular Hemoglobin 30.5 PG (27.0-31.0) Mean Corpuscular Hemoglobin Concent 31.0 G/DL (32.0-36.0) L Red Cell Distribution Width 17.7 % (11.6-14.8) H Platelet Count 93 K/UL (150-450) L Mean Platelet Volume 8.8 FL (6.5-10.1) Neutrophils (%) (Auto) % (45.0-75.0) Lymphocytes (%) (Auto) % (20.0-45.0) Monocytes (%) (Auto) % (1.0-10.0) Eosinophils (%) (Auto) % (0.0-3.0) Basophils (%) (Auto) % (0.0-2.0) Differential Total Cells Counted 100 Neutrophils % (Manual) 71 % (45-75) Lymphocytes % (Manual) 15 % (20-45) L Monocytes % (Manual) 9 % (1-10) Eosinophils % (Manual) 3 % (0-3) Basophils % (Manual) 2 % (0-2) Band Neutrophils 0 % (0-8) Platelet Estimate Decreased L Platelet Morphology Normal Hypochromasia 1+ Anisocytosis 1+ Sodium Level 142 MMOL/L (136-145) Potassium Level 4.4 MMOL/L (3.5-5.1) Chloride Level 103 MMOL/L (98-107) Carbon Dioxide Level 30 MMOL/L (21-32) Anion Gap 9 mmol/L (5-15) Blood Urea Nitrogen 28 mg/dL (7-18) H Creatinine 1.2 MG/DL (0.55-1.30) Estimat Glomerular Filtration Rate > 60 mL/min (>60) Glucose Level 80 MG/DL (74-106) Calcium Level 8.7 MG/DL (8.5-10.1) Total Bilirubin 0.6 MG/DL (0.2-1.0) Aspartate Amino Transf (AST/SGOT) 34 U/L (15-37) Alanine Aminotransferase (ALT/SGPT) 22 U/L (12-78) Alkaline Phosphatase 88 U/L (46-116) Troponin I 0.061 ng/mL (0.000-0.056) 0.050 ng/mL (0.000-0.056) 0.057 ng/mL (0.000-0.056) Pro-B-Type Natriuretic Peptide 5087 pg/mL (0-125) H Total Protein 6.9 G/DL (6.4-8.2) Albumin 3.4 G/DL (3.4-5.0) Globulin 3.5 g/dL Albumin/Globulin Ratio 1.0 (1.0-2.7) Ferritin 57 NG/ML (8-388) Carcinoembryonic Antigen Pending Spenser Fitzpatrick MD Aug 14, 2019 10:03
--- NOTE | 2019-08-14 10:19 | NUR ---
CASE MANAGEMENT:REVIEW 54 YR OLD MALE BIBA FROM STREET (NOT HOMELESS) CC: CHEST PAIN RADIATING TO LT ARM SI: ACS. CHF 99.1 99 19 126/80 95% ON RA TROPONIN(+) 0.061 BUN+28 CR+1.2 BNP+5087 IS: PLACED ON 3L/NC LASIX PO TYLENOL PO NORCO PO ASA PO CHEST XRAY : TO TELEMETRY IS: COREG PO Q12 LISINOPRIL PO QD LASIX PO QD ASA PO QD DIGOXIN PO QD AUGMENTIN PO Q12
--- NOTE | 2019-08-14 11:39 | NUR ---
*-* INSURANCE *-* ALL CLINICALS AND REVIEWS HAVE BEEN FAXED TO: [employer] (PROFESSIONAL) P:[phone] F: [phone] (FAX CLINICALS) & SHAW ORTIZ:HUSSEIN F:[phone]
[2019-08-14] MEDS: Spironolactone 25mg tab ORAL SCH (12:48)
--- NOTE | 2019-08-14 15:23 | NUR ---
NURSE NOTES: Pt asked if he can get morphine for pain. Pt was complaining of 6/10 pain in neck, head, chest, and back. Pt does not want to take Tylenol PRN. Communicated with Dr Blair. Dr Blair ordered Dr Renteria to be in the case for consult. Communicated with Dr Tremayne Fenton (covers for Dr Renteria), and he stated that he will see the pt tomorrow.
--- NOTE | 2019-08-14 16:30 | Consultation ---
DATE OF CONSULTATION: 08/14/2019 PULMONARY CONSULTATION CONSULTING PHYSICIAN: Frank Baca M.D. REFERRING PHYSICIAN: Felisa Blair M.D. HISTORY OF PRESENT ILLNESS: This is a 54-year-old male with history of CHF. He came to hospital with substernal chest pain. He was admitted to the hospital for subsequent workup and care. The patient has a history of allergy to simvastatin. PAST MEDICAL HISTORY: Notable for congestive heart failure, COPD, hypertension, previous STEMI, hypothyroidism. HOME MEDICATIONS: Reviewed, reconciled in chart. REVIEW OF SYSTEMS: Denies any headaches, hematemesis, melena, or hematochezia. PHYSICAL EXAMINATION: GENERAL: Reveals a 51-year-old male. VITAL SIGNS: Blood pressure is 112/70, heart rate 84, respirations 18, O2 saturation on 2 L of oxygen. HEENT: Unremarkable. LUNGS: Few basilar crackles with normal heart sounds. ABDOMEN: Soft. EXTREMITIES: There is no edema. LABORATORY DATA: Lab testing shows normal CBC and BMP with hemoglobin 10.6, troponin 0.06 followed by 0.57. Creatinine 1.2. IMAGING STUDIES: X-ray of chest is reviewed, which shows evidence for cardiomegaly. IMPRESSION: 1. CHF. 2. Chest pain. 3. Troponin leak. DISCUSSION: Admit to the hospital. We will order oxygen and pulmonary hygiene. Continue home medications. Cardiac evaluation requested. We will follow as fan installer. Frank Baca M.D. DR: KENZIE JOB#: [id number] CC:
--- NOTE | 2019-08-14 17:00 | Consultation ---
DATE OF CONSULTATION: 08/14/2019 INFECTIOUS DISEASE CONSULTATION CONSULTING PHYSICIAN: Carmelo Canada M.D. PRIMARY ATTENDING PHYSICIAN: Felisa Blair M.D. REASON FOR CONSULT: Cellulitis of legs. HISTORY OF PRESENT ILLNESS: This is a 54-year-old with history of congestive heart failure, who was admitted yesterday because of midsternal chest pain and shortness of breath, especially with activity. PAST MEDICAL HISTORY: CHF, ejection fraction of 15% on the last admission in June 2019. He has COPD, hypertension, and hypothyroidism. He has history of coronary artery disease, anemia, and thrombocytopenia. ALLERGIES: Statins. MEDICATIONS: Atorvastatin, Coreg, lisinopril, Lasix, aspirin, digoxin, Augmentin, and hydralazine. SOCIAL HISTORY: He is single, lives at home. He has history of smoking in the past. Smokes marijuana. Denies drug abuse. REVIEW OF SYSTEMS: Shortness of breath on exertion and substernal chest pain. No nausea. No vomiting. No dysuria. He has chronic swelling of the legs. PHYSICAL EXAMINATION: VITAL SIGNS: Temperature 98.2, blood pressure 112/71, and pulse 88. GENERAL APPEARANCE: Well developed. HEAD AND NECK: Getting oxygen by nasal cannula. No oral lesion. HEART: Normal rate. LUNGS: Clear. ABDOMEN: Soft and nontender. EXTREMITIES: Have edema. SKIN: Thickening pigmentation of legs bilaterally, mostly below the knee. No open wounds. NEUROLOGIC: He is awake, alert, and oriented. LABORATORY AND DIAGNOSTIC DATA: Troponin is elevated 0.061. Sodium 142, potassium 4.4, chloride 106, bicarb 30, BUN 20, and creatinine 1.2. Glucose is 80. BNP is 5087. Chest x-ray showed cardiomegaly. IMPRESSION: Stasis dermatitis, may have mild nonpurulent cellulitis. He has congestive heart failure and cardiomyopathy with ejection fraction of 15%, anemia, thrombocytopenia, pulmonary hypertension, and history of COPD. RECOMMENDATION: Agree with short-term use of Augmentin. We will follow up the clinical course. At the end of my exam, I thank Dr. Blair for involving me in the care of this patient. Carmelo Canada M.D. DR: ANNE JOB#: [id number] CC:
--- NOTE | 2019-08-14 18:00 | NUR ---
NURSE NOTES: Asked pt again if he wants to take Tylenol for his pain, pt refused.
--- NOTE | 2019-08-14 18:15 | Consultation ---
DATE OF CONSULTATION: 08/14/2019 CARDIOLOGY CONSULTATION CONSULTING PHYSICIAN: Spenser Fitzpatrick M.D. REFERRING PHYSICIAN: Felisa Blair M.D. REASON FOR CONSULTATION: Management of chest pain. HISTORY OF PRESENT ILLNESS: The patient is a very unfortunate 54-year-old gentleman, who recently left AMA from [facility] after he was admitted for another episode of chest pain. He presented to this hospital following another episode of chest pain that he experienced in the bus. At the time of arrival to this hospital, blood pressure was 126/80 mmHg and heart rate was 99. A 12-lead electrocardiogram was significant for sinus rhythm at a rate of 95 with T-wave inversion in lead V6 and flattening lead V5, suggestive of possible ischemia. The patient has had full cardiac workup in the month of June where he was admitted for congestive heart failure. At that time, he was found to have worsening of left ventricular systolic function according to the echocardiogram on 07/04/2019. His left ventricular ejection fraction was 15%. He had wall motion abnormalities. He also had small pericardial effusion, pseudonormal LV physiology suggestive of moderately elevated left atrial pressure and moderate mitral regurgitation. His pulmonary artery pressure was measured at 53 mmHg consistent with moderate pulmonary hypertension. In that hospitalization, the patient underwent guideline-directed medical therapy. He refused right and left heart catheterization, which was offered to him in the previous admission. At that time, he wanted to be transferred out to another facility to have this study done. This was documented on 07/05/2019. We continued medical therapy at that time including diuretics. The patient also had renal failure, possibly cardiorenal syndrome and also small pericardial effusion, which was thought to be an element of the right heart failure or association with chronic kidney disease. Upon admission to the emergency department, the patient had a chest x-ray, which showed cardiomegaly, but no evidence of pulmonary edema. His troponin I level, however, was elevated at 0.06 and repeat was 0.05. Brain natriuretic peptide was 5087, which was elevated from month ago, the value was at that time 2370. Cardiology consultation was made at the request of Dr. Blair. The patient is admitted to telemetry for further evaluation and management of possible acute on chronic congestive heart failure. PAST MEDICAL HISTORY: 1. Heart failure, reduced EF with a drop of LVEF from 55% determined in 2014 down to 15% determined in 2019, refused right and left heart catheterization in June 2019. 2. Hypertension. 3. COPD. 4. Chronic kidney disease. PAST SURGICAL HISTORY: None. ALLERGIES: Allergies to simvastatin. MEDICATIONS: List of medications including Augmentin 875-125 mg one tablet twice daily, aspirin 81 mg daily, atorvastatin 40 mg nightly, carvedilol 6.25 mg twice daily, digoxin 0.125 mg daily, Lasix 40 mg daily, hydralazine 10 mg q.8 h., lisinopril 5 mg daily, and Protonix 40 mg daily. SOCIAL HISTORY: Denies any tobacco, alcohol, or illicit drug use. REVIEW OF SYSTEMS: HEENT: Denies any headache, diplopia, or blurred vision. CONSTITUTIONAL: Denies any fever, chills, nausea, or weight loss. CARDIOVASCULAR: Positive for chest pain and shortness of breath with less than ordinary activities, NYHA class 2/3. Denies any leg edema, orthopnea, PND, or palpitations. PULMONARY: Positive for shortness of breath, but no hemoptysis or wheezing. GASTROINTESTINAL: Denies any nausea, vomiting, diarrhea, constipation, abdominal pain, or GI bleed. GENITOURINARY: Denies any hematuria, dysuria, or incontinence. NEUROLOGICAL: Denies any motor dysfunction, sensory deficit, or altered speech. PHYSICAL EXAMINATION: VITAL SIGNS: At the time of arrival to the hospital, blood pressure was 123/80, respirations of 19, pulse of 99, and temperature 99.1 degrees Fahrenheit. O2 saturation 95% on room air. GENERAL: The patient is a very unfortunate 54-year-old gentleman, in no apparent respiratory distress. Alert and oriented x4. HEENT: Atraumatic and normocephalic. Anicteric. Pupils are equal, round, and reactive to light and accommodation. Extraocular muscles are intact. NECK: JVP elevated at about 10 to 12 cm. No carotid bruits. Carotid upstrokes 2+ bilaterally. CARDIOVASCULAR: Normal S1 and S2. Regular rate and rhythm. Tachycardic. Positive S3. A 2/6 holosystolic murmur at xiphoid area. LUNGS: Bibasilar crackles. ABDOMEN: Soft, nontender, and nondistended. No hepatosplenomegaly. Positive bowel sounds. EXTREMITIES: There is 3+ bilateral lower extremity edema. LABORATORY FINDINGS: WBC was 5.5, hemoglobin of 10.6, hematocrit of 34.2%, and platelet count 93,000. Sodium 142, potassium 4.4, chloride 103, bicarbonate 30, BUN 28, and creatinine 1.2. Glucose is 80. Calcium is 8.7. Troponin I was 0.061. ProBNP was 5087. ASSESSMENT AND PLAN: The patient is a very unfortunate 54-year-old gentleman, seen in Cardiology consultation. 1. Slight elevation of troponin I level pattern, this is consistent with myocardial necrosis due to acute heart failure. The patient requires right and left heart catheterization anyway, which was offered to him in June 2019 in his previous admission to this hospital, but he refused at that time. We will discuss with the patient regarding repeating this test in the future. 2. Acute on chronic combined systolic and diastolic congestive heart failure, elevation of brain natriuretic peptide is evident. The level has doubled up from the June admission. We are to be managing with diuretics and afterload reducers. 3. History of hypertension. 4. Moderate pulmonary hypertension due to left heart failure. 5. Small pericardial effusion, likely due to element of right heart failure. 6. History of chronic kidney disease with creatinine of 1.2 on admission. We will continue guideline-directed medical therapy and check creatinine on a daily basis. I would like to thank Dr. Blair for the courtesy of this consultation. Spenser Fitzpatrick M.D. DR: GRAY JOB#: [id number] CC:
--- NOTE | 2019-08-14 19:25 | NUR ---
NURSE NOTES: Received report from Jayleen. Initial rounding done. Pt resting in bed, AAOX4, resp even, denies pain. Requesting for juice, informed of Fluid restriction 1500 ml/day. will f/u, no further needs noted at this time.
--- NOTE | 2019-08-14 19:44 | NUR ---
HAND-OFF: Report given to GENTRY Pulliam. Pt in stable condition, endorsed plan of care.
[2019-08-14] MEDS: Atorvastatin 20mg tab ORAL SCH (20:59)
[2019-08-15] VITALS: BP 113/77
--- NOTE | 2019-08-15 01:15 | History and Physical Report ---
DATE OF ADMISSION: 08/13/2019 HISTORY OF PRESENT ILLNESS: The patient comes here with respiratory insufficiency, shortness of breath, chest pain, and worsening leg edema for five days. He has two-pillow orthopnea. He is being admitted for chest pain, shortness of breath, elevated BUN and BNP, and CHF exacerbation. The patient denies fever. Denies chills. Denies significant cough. The patient reports worsening leg edema. Denies vomiting. Denies diarrhea. Admitted for CHF exacerbation and chest pain to rule out acute coronary syndrome. PAST MEDICAL HISTORY: CHF, history of non-STEMI, hypertension, hypothyroidism, COPD, and Graves disease. PAST SURGICAL HISTORY: Eye surgery and sinus surgery. ALLERGIES: To statins. MEDICATIONS: The patient does not remember the name of all the medications at this point. We will try to get the medication list. FAMILY HISTORY: Noncontributory. SOCIAL HISTORY: He has history of smoking and history of marijuana use. Denies history of alcohol abuse. REVIEW OF SYSTEMS: HEENT: Denies headaches. RESPIRATORY: Reports shortness of breath on exertion. Denies any significant coughing for past five days. CARDIOVASCULAR: Reports two-pillow orthopnea. Reports chest pain, does not radiate to the arm, associated with shortness of breath. Denies palpitation. GASTROINTESTINAL: Denies heartburn. EXTREMITIES: He does have chronic pain. CENTRAL NERVOUS SYSTEM: Denies change in speech pattern. Denies weakness. Denies fatigue. PHYSICAL EXAMINATION: VITAL SIGNS: Temperature is 97.2, pulse 78, and blood pressure 130/70. HEENT: PERRLA. NECK: Supple. CHEST: Bibasilar rales. CARDIOVASCULAR: Regular rate and rhythm. ABDOMEN: Soft. Positive bowel sounds. No organomegaly. EXTREMITIES: 2+ edema in the lower extremities. Reflexes on both sides. Dorsalis pedal pulses present. NEUROLOGIC: Oriented x2. LABORATORY DATA: WBC of 5.5, hemoglobin 10.6, and platelets of 93,000. ASSESSMENT: 1. Chest pain, rule out acute coronary syndrome. 2. CHF exacerbation. 3. Shortness of breath. 4. He has been taking Augmentin for mild cellulitis of lower extremity. 5. The patient has borderline elevated troponin and has been having chest pain, rule out acute coronary syndrome. PLAN: I have consulted Dr. Carmelo Canada, Dr. Cody, Dr. Frank Chao, and Dr. Fitzpatrick to help with the management of the chest pain, shortness of breath, and mild leg cellulitis. Antibiotics per Dr. Carmelo Canada. Felisa Blair M.D. DR: YAMILET JOB#: [id number] CC:
[2019-08-15 04:00] VITALS: BP 116/72
[2019-08-15] MEDS: HydrALAZINE 10mg Tab ORAL SCH ×3 (05:30→21:27)
--- NOTE | 2019-08-15 07:20 | NUR ---
HAND-OFF: Report given to JEZ Mckeon.
--- NOTE | 2019-08-15 07:25 | NUR ---
NURSE NOTES: Received patient eating breakfast. Pt A/A/O x4, denies any pain at the moment. No s/sx of acute cardio-resp distress. Pt is ambulatory with minimal assist. IV site on R FA 22g patent and asymptomatic. Bed in lowest position, bed brakes and locked engaged. call light within reach. Will continue plan of care.
[2019-08-15 08:00] VITALS: BP 118/71
--- NOTE | 2019-08-15 08:00 | Hematology/Onc Progress Note ---
Assessment/Plan Assessment/Plan Assessment and Recs: # Thrombocytopenia - potential causes multifactorial, evaluate liver and viral etiologies to begin, also could be related to underlying medications patient has received. HIV is neg --> Hep panel and HIV ordered (hiv neg) --> US abd to evaluate for cirrhosis and hsm ordered --> ++ SPLENOMEGALY IS NOTED --> Peripheral smear ordered to evaluate for blasts /schistocytes --> none noted --> abx and other meds have been reviewed --> ok for ppx if plt >50k w/ either heparin or lovenox --> Transfuse if Plt < 20k and fever, or if Plt < 10k without fever --> plt trend 93k # Anemia of iron deficiency, with a ferritin that was 29 --> Anemia workup has been ordered, rule out gi bleed --> No evidence of hemolysis is noted, peripheral smear has been reviewed. --> Hgb goal >7. Transfuse prn. --> IRON Venofer 100mg iv x5 days ordered --> Medications have been reviewed --> hgb 10.4-->10.2 # New onset dilated cardiomyopathy with severe LV systolic dysfunction and LVEF at 15%, drop of LVEF from 55% measured in 2015, require right and left heart cath to rule out CAD. --> patient is refusing this test now and do not wish to be transferred out. He realizes the risk of his actions which may include . Dr. Blair programmer analyst health it also notified. In the meantime we ll continue guideline recommended therapy for heart failure. --> as per cards recs # Severe pulmonary HTN due to left heart failure, continue diuretics. --> pulm consulted # MARGUERITE, probably cardiorenal syndrome. --> per renal # Acute combined systolic and diastolic CHF. # Small pericardial effusion likely element of right heart failure Appreciate consultation and eladio RN Subjective Constitutional: Denies: no symptoms, chills, fever, malaise, weakness, other HEENT: Denies: no symptoms, eye pain, blurred vision, tearing, double vision, ear pain, ear discharge, nose pain, nose congestion, throat pain, throat swelling, mouth pain, mouth swelling, other Cardiovascular: Denies: no symptoms, chest pain, edema, irregular heart rate, lightheadedness, palpitations, syncope, other Gastrointestinal/Abdominal: Denies: no symptoms, abdomen distended, abdominal pain, black stools, tarry stools, blood in stool, constipated, diarrhea, difficulty swallowing, nausea, poor appetite, poor fluid intake, rectal bleeding , vomiting, other Genitourinary: Denies: no symptoms, burning, discharge, frequency, flank pain, hematuria, incontinence, pain, urgency, other Neurologic/Psychiatric: Denies: no symptoms, anxiety, depressed, emotional problems, headache, numbness, paresthesia, pre-existing deficit, seizure, tingling, tremors, weakness, other Endocrine: Denies: no symptoms, excessive sweating, flushing, intolerance to cold, intolerance to heat, increased hunger, increased thirst, increased urine, unexplained weight gain, unexplained weight loss, other Hematologic/Lymphatic: Denies: no symptoms, anemia, easy bleeding, easy bruising, adenopathy, other Allergies: Coded Allergies: SIMVASTATIN (Verified Allergy, Unknown, 07/03/19) Uncoded Allergies: STATINS (Allergy, Unknown, 08/13/19) Subjective 08/14 less cp, have ordered for iv iron, cbc and bmp are pending Objective Objective Current Medications Medications (Trade) Dose Ordered Sig/Marybeth Route PRN Reason Start Time Stop Time Status Last Admin Dose Admin Acetaminophen (Tylenol) 650 mg Q4H PRN ORAL Mild Pain/Temp > 100.5 08/13/19 22:45 09/12/19 22:44 Amoxicillin/ Clavulanate Potassium (Augmentin) 875 mg EVERY 12 HOURS ORAL 08/13/19 22:45 08/20/19 22:44 08/14/19 20:59 Aspirin (ASA) 81 mg DAILY ORAL 08/14/19 09:00 09/28/19 08:59 Atorvastatin Calcium (Lipitor) 40 mg BEDTIME ORAL 08/14/19 21:00 11/12/19 20:59 08/14/19 20:59 Carvedilol (Coreg) 6.25 mg EVERY 12 HOURS ORAL 08/14/19 09:00 09/13/19 08:59 08/14/19 21:00 Digoxin (Lanoxin) 0.125 mg DAILY ORAL 08/14/19 09:00 11/12/19 08:59 08/14/19 09:27 Furosemide (Lasix) 40 mg DAILY IV 08/14/19 12:15 09/13/19 12:14 08/14/19 12:47 Hydralazine HCl (Apresoline) 10 mg Q8HR ORAL 08/14/19 06:00 11/12/19 05:59 08/15/19 05:30 Lisinopril (ZestriL) 5 mg DAILY ORAL 08/14/19 09:00 09/13/19 08:59 08/14/19 09:27 Pantoprazole (Protonix) 40 mg DAILY@0630 ORAL 08/14/19 06:30 09/13/19 06:29 08/15/19 05:30 Spironolactone (Aldactone) 25 mg DAILY ORAL 08/14/19 12:15 09/13/19 12:14 08/14/19 12:48 Last 24 Hour Vital Signs Date Time Temp Pulse Resp B/P (MAP) Pulse Ox O2 Delivery O2 Flow Rate FiO2 08/15/19 05:30 116/72 08/15/19 04:00 97 08/15/19 04:00 97.4 78 16 116/72 (87) 99 08/15/19 04:00 Nasal Cannula 2.0 08/15/19 00:00 Nasal Cannula 2.0 08/15/19 00:00 97.6 88 16 113/77 (89) 100 08/15/19 00:00 93 08/14/19 21:46 129/74 08/14/19 21:00 91 129/74 08/14/19 21:00 Nasal Cannula 2.0 08/14/19 20:00 91 08/14/19 20:00 97.7 91 16 129/74 (92) 100 08/14/19 16:01 88 08/14/19 16:00 97.5 97 20 118/82 (94) 100 08/14/19 14:26 118/80 08/14/19 14:25 92 118/80 (93) 08/14/19 12:00 97.7 83 20 149/66 (93) 99 08/14/19 11:53 93 08/14/19 09:27 88 08/14/19 09:27 112/71 08/14/19 09:27 88 112/71 08/14/19 09:00 Nasal Cannula 2.0 08/14/19 08:00 98.2 88 20 112/71 (85) 99 08/14/19 07:45 89 08/14/19 05:55 124/85 08/14/19 05:52 93 124/85 (98) 08/14/19 04:00 94 08/14/19 04:00 97.0 92 22 129/87 (101) 99 08/14/19 00:00 91 08/14/19 00:00 97.7 85 21 117/81 (93) 98 08/13/19 23:15 97.7 92 20 108/82 (91) 98 08/13/19 22:00 Nasal Cannula 3.0 08/13/19 21:50 85 08/13/19 21:10 99.1 88 18 124/80 98 Nasal Cannula 3.0 97 08/13/19 20:15 99.1 08/13/19 17:37 99.1 08/13/19 17:00 99.1 92 16 135/82 97 Room Air 08/13/19 14:20 99.1 97 18 124/81 95 Room Air 08/13/19 14:20 99 19 Room Air 97 08/13/19 13:56 99.1 99 19 126/80 (95) 95 Room Air Intake and Output 08/14/19 08/15/19 19:00 07:00 Intake Total 420 ml 350 ml Output Total 1000 ml 300 ml Balance -580 ml 50 ml Intake Oral 420 ml 350 ml Output Urine Total 1000 ml 300 ml # Voids 5 3 Labs Test 08/13/19 15:40 08/13/19 18:21 08/14/19 05:33 White Blood Count 5.5 K/UL (4.8-10.8) Red Blood Count 3.48 M/UL (4.70-6.10) Hemoglobin 10.6 G/DL (14.2-18.0) Hematocrit 34.2 % (42.0-52.0) Mean Corpuscular Volume 98 FL (80-99) Mean Corpuscular Hemoglobin 30.5 PG (27.0-31.0) Mean Corpuscular Hemoglobin Concent 31.0 G/DL (32.0-36.0) Red Cell Distribution Width 17.7 % (11.6-14.8) Platelet Count 93 K/UL (150-450) Mean Platelet Volume 8.8 FL (6.5-10.1) Neutrophils (%) (Auto) % (45.0-75.0) Lymphocytes (%) (Auto) % (20.0-45.0) Monocytes (%) (Auto) % (1.0-10.0) Eosinophils (%) (Auto) % (0.0-3.0) Basophils (%) (Auto) % (0.0-2.0) Differential Total Cells Counted 100 Neutrophils % (Manual) 71 % (45-75) Lymphocytes % (Manual) 15 % (20-45) Monocytes % (Manual) 9 % (1-10) Eosinophils % (Manual) 3 % (0-3) Basophils % (Manual) 2 % (0-2) Band Neutrophils 0 % (0-8) Platelet Estimate Decreased Platelet Morphology Normal Hypochromasia 1+ Anisocytosis 1+ Sodium Level 142 MMOL/L (136-145) Potassium Level 4.4 MMOL/L (3.5-5.1) Chloride Level 103 MMOL/L (98-107) Carbon Dioxide Level 30 MMOL/L (21-32) Anion Gap 9 mmol/L (5-15) Blood Urea Nitrogen 28 mg/dL (7-18) Creatinine 1.2 MG/DL (0.55-1.30) Estimat Glomerular Filtration Rate > 60 mL/min (>60) Glucose Level 80 MG/DL (74-106) Calcium Level 8.7 MG/DL (8.5-10.1) Total Bilirubin 0.6 MG/DL (0.2-1.0) Aspartate Amino Transf (AST/SGOT) 34 U/L (15-37) Alanine Aminotransferase (ALT/SGPT) 22 U/L (12-78) Alkaline Phosphatase 88 U/L (46-116) Troponin I 0.061 ng/mL (0.000-0.056) 0.050 ng/mL (0.000-0.056) 0.057 ng/mL (0.000-0.056) Pro-B-Type Natriuretic Peptide 5087 pg/mL (0-125) Total Protein 6.9 G/DL (6.4-8.2) Albumin 3.4 G/DL (3.4-5.0) Globulin 3.5 g/dL Albumin/Globulin Ratio 1.0 (1.0-2.7) Ferritin 57 NG/ML (8-388) Carcinoembryonic Antigen 3.2 ng/mL (0.0-4.7) Height (Feet): 5 Height (Inches): 9.00 Weight (Pounds): 200 Objective Vitals: reviewed General: NAD Neck: supple Chest: clear breath sounds bilaterally noted crackles+++ Cardiovascular: RRR, no s3, s4 Abdomen: soft, nontender, nd Extremities: n1+ edema, normal range of motion Mental: alert Labs: noted Mihai Jean MD Aug 15, 2019 08:00
[2019-08-15] MEDS: Digoxin 0.125mg tab ORAL SCH (09:00)
[2019-08-15] MEDS: Aspirin Baby 81mg ORAL SCH (09:01)
[2019-08-15] MEDS: Lisinopril 2.5mg tab ORAL SCH (09:01)
[2019-08-15] MEDS: Spironolactone 25mg tab ORAL SCH (09:01)
[2019-08-15] MEDS: Augmentin 875mg Tab ORAL SCH ×2 (09:01→21:26)
[2019-08-15] MEDS: Carvedilol 6.25mg Tab ORAL SCH ×2 (09:01→21:23)
--- NOTE | 2019-08-15 10:14 | NUR ---
CASE MANAGEMENT:REVIEW 08/15/19 SI: AC/CHR CHF. PERICARDIAL EFFUSION MYOCARDIAL NECROSIS 96.7 74 19 118/71 98% ON 2L/NC TROPONIN(+) 0.057 IS: IV VENOFER QHS LIPITOR PO QHS ALDACTONE PO QD IV LASIX QD COREG PO Q12 LISINOPRIL PO QD ASA PO QD DIGOXIN PO QD PROTONIX PO QD HYDRALAZINE PO Q8HRS AUGMENTIN PO Q12 : TELEMETRY STATUS DCP: FROM HOME PLAN: NEEDS CARDIAC CATH...REFUSED LAST ADMISSION
--- NOTE | 2019-08-15 10:15 | Pulmonology Progress Note ---
Assessment/Plan Assessment/Plan IMPRESSION: 1. CHF. 2. Chest pain. 3. Troponin leak. DISCUSSION: I will continue oxygen and pulmonary hygiene. Continue home medications. Cardiac evaluation. I will follow as internet manager. Subjective Interval Events: None new Constitutional: Reports: no symptoms HEENT: Repors: no symptoms Respiratory: Reports: no symptoms Cardiovascular: Reports: no symptoms Gastrointestinal/Abdominal: Reports: no symptoms Genitourinary: Reports: no symptoms Allergies: Coded Allergies: SIMVASTATIN (Verified Allergy, Unknown, 07/03/19) Uncoded Allergies: STATINS (Allergy, Unknown, 08/13/19) Objective Last 24 Hour Vital Signs Date Time Temp Pulse Resp B/P (MAP) Pulse Ox O2 Delivery O2 Flow Rate FiO2 08/15/19 09:56 Nasal Cannula 2.0 08/15/19 09:11 95 08/15/19 09:01 118/71 08/15/19 09:01 74 118/71 08/15/19 09:00 74 08/15/19 08:00 96.7 74 19 118/71 (87) 98 08/15/19 05:30 116/72 08/15/19 04:00 97 08/15/19 04:00 97.4 78 16 116/72 (87) 99 08/15/19 04:00 Nasal Cannula 2.0 08/15/19 00:00 Nasal Cannula 2.0 08/15/19 00:00 97.6 88 16 113/77 (89) 100 08/15/19 00:00 93 08/14/19 21:46 129/74 08/14/19 21:00 91 129/74 08/14/19 21:00 Nasal Cannula 2.0 08/14/19 20:00 91 08/14/19 20:00 97.7 91 16 129/74 (92) 100 08/14/19 16:01 88 08/14/19 16:00 97.5 97 20 118/82 (94) 100 08/14/19 14:26 118/80 08/14/19 14:25 92 118/80 (93) 08/14/19 12:00 97.7 83 20 149/66 (93) 99 08/14/19 11:53 93 Intake and Output 08/14/19 08/15/19 19:00 07:00 Intake Total 420 ml 350 ml Output Total 1000 ml 300 ml Balance -580 ml 50 ml Intake Oral 420 ml 350 ml Output Urine Total 1000 ml 300 ml # Voids 5 3 General Appearance: no acute distress HEENT: normocephalic Respiratory/Chest: chest wall non-tender, decreased breath sounds Cardiovascular: normal peripheral pulses Abdomen: normal bowel sounds Extremities: no cyanosis Current Medications Medications (Trade) Dose Ordered Sig/Marybeth Route PRN Reason Start Time Stop Time Status Last Admin Dose Admin Acetaminophen (Tylenol) 650 mg Q4H PRN ORAL Mild Pain/Temp > 100.5 08/13/19 22:45 09/12/19 22:44 Amoxicillin/ Clavulanate Potassium (Augmentin) 875 mg EVERY 12 HOURS ORAL 08/13/19 22:45 08/20/19 22:44 08/15/19 09:01 Aspirin (ASA) 81 mg DAILY ORAL 08/14/19 09:00 09/28/19 08:59 08/15/19 09:01 Atorvastatin Calcium (Lipitor) 40 mg BEDTIME ORAL 08/14/19 21:00 11/12/19 20:59 08/14/19 20:59 Carvedilol (Coreg) 6.25 mg EVERY 12 HOURS ORAL 08/14/19 09:00 09/13/19 08:59 08/15/19 09:01 Digoxin (Lanoxin) 0.125 mg DAILY ORAL 08/14/19 09:00 11/12/19 08:59 08/14/19 09:27 Furosemide (Lasix) 40 mg DAILY IV 08/14/19 12:15 09/13/19 12:14 08/15/19 09:32 Hydralazine HCl (Apresoline) 10 mg Q8HR ORAL 08/14/19 06:00 11/12/19 05:59 08/15/19 05:30 Iron Sucrose 100 mg/Sodium Chloride 60 ml @ 240 mls/hr BEDTIME IVPB 08/15/19 21:00 08/19/19 21:14 Lisinopril (ZestriL) 5 mg DAILY ORAL 08/14/19 09:00 09/13/19 08:59 08/15/19 09:01 Pantoprazole (Protonix) 40 mg DAILY@0630 ORAL 08/14/19 06:30 09/13/19 06:29 08/15/19 05:30 Spironolactone (Aldactone) 25 mg DAILY ORAL 08/14/19 12:15 09/13/19 12:14 08/15/19 09:01 Frank Baca MD Aug 15, 2019 10:15
--- NOTE | 2019-08-15 10:36 | Infectious Diseases Prog Note ---
Assessment/Plan Assessment/Plan IMPRESSION: Stasis dermatitis, may have mild nonpurulent cellulitis. Congestive heart failure and cardiomyopathy with EF=15% Anemia, Thrombocytopenia, Pulmonary hypertension, COPD. Elevated troponin RECOMMENDATION: Agree with short-term use of Augmentin. We will follow up the clinical course. Subjective ROS Limited/Unobtainable: Yes Constitutional: Denies: fever Allergies: Coded Allergies: SIMVASTATIN (Verified Allergy, Unknown, 07/03/19) Uncoded Allergies: STATINS (Allergy, Unknown, 08/13/19) Objective Vital Signs Last 24 Hour Vital Signs Date Time Temp Pulse Resp B/P (MAP) Pulse Ox O2 Delivery O2 Flow Rate FiO2 08/15/19 09:56 Nasal Cannula 2.0 08/15/19 09:11 95 08/15/19 09:01 118/71 08/15/19 09:01 74 118/71 08/15/19 09:00 74 08/15/19 08:00 96.7 74 19 118/71 (87) 98 08/15/19 05:30 116/72 08/15/19 04:00 97 08/15/19 04:00 97.4 78 16 116/72 (87) 99 08/15/19 04:00 Nasal Cannula 2.0 08/15/19 00:00 Nasal Cannula 2.0 08/15/19 00:00 97.6 88 16 113/77 (89) 100 08/15/19 00:00 93 08/14/19 21:46 129/74 08/14/19 21:00 91 129/74 08/14/19 21:00 Nasal Cannula 2.0 08/14/19 20:00 91 08/14/19 20:00 97.7 91 16 129/74 (92) 100 08/14/19 16:01 88 08/14/19 16:00 97.5 97 20 118/82 (94) 100 08/14/19 14:26 118/80 08/14/19 14:25 92 118/80 (93) 08/14/19 12:00 97.7 83 20 149/66 (93) 99 08/14/19 11:53 93 Height (Feet): 5 Height (Inches): 9.00 Weight (Pounds): 200 General Appearance: no acute distress HEENT: mucous membranes moist Respiratory/Chest: lungs clear, other - oxygen by nasal cannula Cardiovascular: normal rate Abdomen: soft, non tender Extremities: other - legs edema Skin: other - skin induration in legs Neurologic/Psychiatric: other - sleeping Current Medications Medications (Trade) Dose Ordered Sig/Marybeth Route PRN Reason Start Time Stop Time Status Last Admin Dose Admin Acetaminophen (Tylenol) 650 mg Q4H PRN ORAL Mild Pain/Temp > 100.5 08/13/19 22:45 09/12/19 22:44 Amoxicillin/ Clavulanate Potassium (Augmentin) 875 mg EVERY 12 HOURS ORAL 08/13/19 22:45 08/20/19 22:44 08/15/19 09:01 Aspirin (ASA) 81 mg DAILY ORAL 08/14/19 09:00 09/28/19 08:59 08/15/19 09:01 Atorvastatin Calcium (Lipitor) 40 mg BEDTIME ORAL 08/14/19 21:00 11/12/19 20:59 08/14/19 20:59 Carvedilol (Coreg) 6.25 mg EVERY 12 HOURS ORAL 08/14/19 09:00 09/13/19 08:59 08/15/19 09:01 Digoxin (Lanoxin) 0.125 mg DAILY ORAL 08/14/19 09:00 11/12/19 08:59 08/14/19 09:27 Furosemide (Lasix) 40 mg DAILY IV 08/14/19 12:15 09/13/19 12:14 08/15/19 09:32 Hydralazine HCl (Apresoline) 10 mg Q8HR ORAL 08/14/19 06:00 11/12/19 05:59 08/15/19 05:30 Iron Sucrose 100 mg/Sodium Chloride 60 ml @ 240 mls/hr BEDTIME IVPB 08/15/19 21:00 08/19/19 21:14 Lisinopril (ZestriL) 5 mg DAILY ORAL 08/14/19 09:00 09/13/19 08:59 08/15/19 09:01 Pantoprazole (Protonix) 40 mg DAILY@0630 ORAL 08/14/19 06:30 09/13/19 06:29 08/15/19 05:30 Spironolactone (Aldactone) 25 mg DAILY ORAL 08/14/19 12:15 09/13/19 12:14 08/15/19 09:01 Carmelo Canada MD Aug 15, 2019 10:36
[2019-08-15 11:57] VITALS: BP 109/71
--- NOTE | 2019-08-15 14:51 | NUR ---
*-* INSURANCE *-* ALL CLINICALS AND REVIEWS HAVE BEEN FAXED TO: [employer] (PROFESSIONAL) P:[phone] F: [phone] (FAX CLINICALS) & [facility] NCM:HUSSEIN F:[phone] Addendum: 08/16/19 at 937 by TOPHER MILES CM [employer] [facility] ref# [id number] NCM:HUSSEIN F:[phone] Addendum: 08/16/19 at 937 by TOPHER MILES CM [facility] ref# [id number] NCM:HUSSEIN F:[phone] f: [phone]
[2019-08-15 16:00] VITALS: BP 104/65
--- NOTE | 2019-08-15 18:15 | Consultation ---
DATE OF CONSULTATION: 08/15/2019 PAIN MANAGEMENT CONSULTATION CONSULTING PHYSICIAN: Mike Renteria M.D. REFERRING PHYSICIAN: Felisa Blair M.D. PHYSICIAN MINING ENGINEER: GALLITO Granda CHIEF COMPLAINT: Bilateral lower extremity pain. HISTORY OF PRESENT ILLNESS: The patient is a 54-year-old male, who is being seen on the telemetry floor of [facility] for initial pain management consultation. The patient has been admitted under the care of Dr. Blair due to complaints of chest pain, found to have CHF, being seen by auto air conditioning apprentice, hydrocrane operator, and Infectious Diseases doctor at this time as well as director title/oncologist. He had been complaining of chest pain as well as lower extremity pain, started on Tylenol as needed with minimal pain relief. Due to this, we were consulted so the patient would have adequate pain control while here in the hospital PAST MEDICAL HISTORY: CHF, COPD, hypertension, hypothyroidism, coronary artery disease, anemia, thrombocytopenia. SOCIAL HISTORY: He has a history of smoking, he smokes marijuana. Denies alcohol abuse. No drug abuse. ALLERGIES: Simvastatin. MEDICATIONS: Atorvastatin, Coreg, lisinopril, Lasix, aspirin, digoxin, Augmentin, hydralazine. REVIEW OF SYSTEMS: Denies rash, fever, chills, sweating, dizziness, drowsiness, blurred vision, sore throat, change in weight. No nausea, vomiting, diarrhea, blood in stool or urine. No dysuria. He is complaining of bilateral lower extremity pain. PHYSICAL EXAMINATION: GENERAL: Alert, awake, and oriented. VITAL SIGNS: Blood pressure 104/65, heart rate 76, oxygen saturation 100%, respiratory rate is 20. HEENT: PERRLA. NECK: Range of motion is full in all directions. No tenderness to paracervical muscles. No adenopathy. LUNGS: Decreased breath sounds bilaterally. HEART: Regular rate BACK: Range of motion is decreased in flexion and extension. EXTREMITIES: Upper and lower extremity range of motion is decreased due to the patient's condition. No cyanosis. No clubbing. Sensory is reduced. Reflexes are not obtainable. No adenopathy. ASSESSMENT AND PLAN: This is a 54-year-old male with CHF, chest pain, peripheral neuropathy. The patient started on tramadol 50 mg tablet every six hours as needed for severe pain. The patient was discussed with Dr. Renteria and Dr. Renteria concurred. We will follow up with the patient. Thank you very much for the courtesy of this consultation. Mike Renteria M.D. GALLITO Granda DR: Lv JOB#: [id number] CC: MARTHA
--- NOTE | 2019-08-15 18:16 | Cardiology Progress Note ---
Assessment/Plan Assessment/Plan 1. Slight elevation of troponin I level due to myocardial necrosis, the patient agreed to right and left heart cath once COVID-19 outbreak is over. 2. Acute on chronic combined systolic and diastolic congestive heart failure, continue the current therapy. 3. History of hypertension. 4. Moderate pulmonary hypertension due to left heart failure. 5. Small pericardial effusion, likely due to element of right heart failure. 6. History of chronic kidney disease, repeat BMP and Mg level today. Subjective Subjective Sinus rhythm at rate of 76. Objective Last 24 Hour Vital Signs Date Time Temp Pulse Resp B/P (MAP) Pulse Ox O2 Delivery O2 Flow Rate FiO2 08/15/19 16:00 98.1 76 20 104/65 (78) 100 08/15/19 14:27 115/68 08/15/19 12:49 95 08/15/19 11:57 96.6 81 18 109/71 (84) 97 08/15/19 09:56 Nasal Cannula 2.0 08/15/19 09:11 95 08/15/19 09:01 118/71 08/15/19 09:01 74 118/71 08/15/19 09:00 74 08/15/19 08:00 96.7 74 19 118/71 (87) 98 08/15/19 05:30 116/72 08/15/19 04:00 97 08/15/19 04:00 97.4 78 16 116/72 (87) 99 08/15/19 04:00 Nasal Cannula 2.0 08/15/19 00:00 Nasal Cannula 2.0 08/15/19 00:00 97.6 88 16 113/77 (89) 100 08/15/19 00:00 93 08/14/19 21:46 129/74 08/14/19 21:00 91 129/74 08/14/19 21:00 Nasal Cannula 2.0 08/14/19 20:00 91 08/14/19 20:00 97.7 91 16 129/74 (92) 100 Intake and Output 08/14/19 08/15/19 19:00 07:00 Intake Total 420 ml 350 ml Output Total 1000 ml 300 ml Balance -580 ml 50 ml Intake Oral 420 ml 350 ml Output Urine Total 1000 ml 300 ml # Voids 5 3 2D Echo: DCM, LVEF 15%, Restricitve LV physio, Gloabl LV HK, RAP 15, RVSP 53, Mod MR Objective HEENT: Atraumatic and normocephalic. Anicteric. Pupils are equal, round, and reactive to light and accommodation. Extraocular muscles are intact. NECK: JVP elevated at about 10 to 12 cm. No carotid bruits. Carotid upstrokes 2+ bilaterally. CARDIOVASCULAR: Normal S1 and S2. Regular rate and rhythm. Positive S3. A 2/6 holosystolic murmur at xiphoid area. LUNGS: Bibasilar crackles. ABDOMEN: Soft, nontender, and nondistended. No hepatosplenomegaly. Positive bowel sounds. EXTREMITIES: There is 1+ bilateral lower extremity edema. Spenser Fitzpatrick MD Aug 15, 2019 18:16
--- NOTE | 2019-08-15 19:10 | NUR ---
NURSE NOTES: Received report from GENTRY Sequeira. Patient is awake, alert, and talkative. Patient in semi-hair's position. Bed in lowest position. Call light placed within reach. Will continue to monitor.
--- NOTE | 2019-08-15 19:30 | NUR ---
NURSE NOTES: Report received from GENTRY Mckeon. Patient awake, alert, and responsive. Able to make needs known. Patient in semi-hair's position. Reinforced fluid restrictions. IV intact. No erythema, bleeding, or infiltration. Bed in lowest position. Call light placed within reach. Will continue to monitor.
--- NOTE | 2019-08-15 19:34 | NUR ---
HAND-OFF: Report given to
[2019-08-15 19:57] LABS: ANION GAP 4 mmol/L (5-15); BLOOD UREA NITROGEN 24 mg/dL (7-18); CALCIUM 8.4 MG/DL (8.5-10.1); CARBON DIOXIDE 35 MMOL/L (21-32); CHLORIDE 102 MMOL/L (98-107); CREATININE 1.2 MG/DL (0.55-1.30); POTASSIUM 4.6 MMOL/L (3.5-5.1); SODIUM 141 MMOL/L (136-145)
[2019-08-15 20:00] VITALS: BP 107/70
--- NOTE | 2019-08-15 20:31 | General Progress Note ---
Assessment/Plan Problem List: (1) HTN (hypertension) ICD Codes: I10 - HTN (hypertension) SNOMED: 24742317 (2) Pneumonia ICD Codes: J18.9 - Pneumonia SNOMED: 540796520 (3) SOB (shortness of breath) ICD Codes: R06.02 - Shortness of breath SNOMED: 015482530 (4) ACS (acute coronary syndrome) ICD Codes: I24.9 - Acute ischemic heart disease, unspecified SNOMED: 522570819 (5) CHF (congestive heart failure) ICD Codes: I50.9 - Heart failure, unspecified SNOMED: 18200497 (6) Anemia ICD Codes: D64.9 - Anemia, unspecified SNOMED: 156544629 (7) Cardiomyopathy ICD Codes: I42.9 - Cardiomyopathy, unspecified SNOMED: 45531375 Status: progressing Assessment/Plan: chf sob afebrile arrythmia leg edema needs fluid managment Subjective ROS Limited/Unobtainable: Yes Allergies: Coded Allergies: SIMVASTATIN (Verified Allergy, Unknown, 07/03/19) Uncoded Allergies: STATINS (Allergy, Unknown, 08/13/19) Objective Last 24 Hour Vital Signs Date Time Temp Pulse Resp B/P (MAP) Pulse Ox O2 Delivery O2 Flow Rate FiO2 08/15/19 16:00 104 08/15/19 16:00 98.1 76 20 104/65 (78) 100 08/15/19 14:27 115/68 08/15/19 12:49 95 08/15/19 11:57 96.6 81 18 109/71 (84) 97 08/15/19 09:56 Nasal Cannula 2.0 08/15/19 09:11 95 08/15/19 09:01 118/71 08/15/19 09:01 74 118/71 08/15/19 09:00 74 08/15/19 08:00 96.7 74 19 118/71 (87) 98 08/15/19 05:30 116/72 08/15/19 04:00 97 08/15/19 04:00 97.4 78 16 116/72 (87) 99 08/15/19 04:00 Nasal Cannula 2.0 08/15/19 00:00 Nasal Cannula 2.0 08/15/19 00:00 97.6 88 16 113/77 (89) 100 08/15/19 00:00 93 08/14/19 21:46 129/74 08/14/19 21:00 91 129/74 08/14/19 21:00 Nasal Cannula 2.0 Intake and Output 08/14/19 08/15/19 19:00 07:00 Intake Total 420 ml 350 ml Output Total 1000 ml 300 ml Balance -580 ml 50 ml Intake Oral 420 ml 350 ml Output Urine Total 1000 ml 300 ml # Voids 5 3 Laboratory Tests 08/15/19 19:05: Sodium Level 141, Potassium Level 4.6, Chloride Level 102, Carbon Dioxide Level 35H, Anion Gap 4L, Blood Urea Nitrogen 24H, Creatinine 1.2, Estimat Glomerular Filtration Rate > 60, Glucose Level 115H, Calcium Level 8.4L, Magnesium Level 1.7L Felisa Blair MD Aug 15, 2019 20:31
[2019-08-15] MEDS: Iron Sucrose 100 MG in NS 55 ML IVPB SCH (21:00)
[2019-08-15] MEDS: Atorvastatin 20mg tab ORAL SCH (21:23)
[2019-08-15] MEDS: traMADol 50mg tab ORAL PRN (21:26)
--- NOTE | 2019-08-15 22:11 | NUR ---
NURSE NOTES: Called and left a message with Dr. Blair regarding patient's request for Morphine for his pain. Awaiting call back. Will continue to monitor.
--- NOTE | 2019-08-15 23:03 | NUR ---
NURSE NOTES: Called and left a message with Dr. Renteria regarding patient's request for Morphine. Awaiting call back.
--- NOTE | 2019-08-15 23:14 | Progress Note ---
DATE: 08/15/2019 SUBJECTIVE: The patient is complaining of shortness of breath. The patient is being treated for CHF exacerbation. The patient also has stasis dermatitis with mild nonpurulent encephalitis. Has congestive heart failure, anemia, thrombocytopenia, primary hypertension as well as elevated troponin, and elevated COPD. The patient is on antibiotics per Infectious Disease. The patient does have mild elevation of troponin. The patient has history of hypertension and also moderate pulmonary hypertension. Does have some shortness of breath. ASSESSMENT AND PLAN: The patient is being treated for CHF exacerbation, lower extremity edema, and fluid management is being done by the team. We need to also diurese the patient to improve shortness of breath. The patient is . Felisa Blair M.D. DR: ALLEN JOB#: [id number] CC:
[2019-08-16] VITALS: BP 110/63
--- NOTE | 2019-08-16 01:57 | NUR ---
NURSE NOTES: Patient is asleep in bed. No signs of acute distress or shortness of breath. 2L of oxygen per nasal cannula. Bed rails raised. Call light placed within reach. Able to make needs known. Will continue to monitor.
[2019-08-16 04:00] VITALS: BP 100/66
[2019-08-16] MEDS: HydrALAZINE 10mg Tab ORAL SCH ×3 (05:34→20:57)
[2019-08-16 06:48] LABS: HEMATOCRIT 30.9 % (42.0-52.0); HEMOGLOBIN 9.9 G/DL (14.2-18.0); MEAN CORPUSCULAR VOLUME 96 FL (80-99); PLATELET COUNT 95 K/UL (150-450); RED BLOOD COUNT 3.22 M/UL (4.70-6.10); RED CELL DISTRIBUTION WIDTH 16.2 % (11.6-14.8); WHITE BLOOD COUNT 5.2 K/UL (4.8-10.8)
[2019-08-16 07:18] LABS: ALANINE AMINOTRANSFERASE 23 U/L (12-78); ALBUMIN 2.9 G/DL (3.4-5.0); ALBUMIN/GLOBULIN RATIO 0.8 (1.0-2.7); ALKALINE PHOSPHATASE 75 U/L (46-116); ANION GAP 9 mmol/L (5-15); ASPARTATE AMINO TRANSFERASE 26 U/L (15-37); BILIRUBIN,TOTAL 0.4 MG/DL (0.2-1.0); BLOOD UREA NITROGEN 20 mg/dL (7-18); CALCIUM 8.4 MG/DL (8.5-10.1); CARBON DIOXIDE 29 MMOL/L (21-32); CHLORIDE 105 MMOL/L (98-107); CHOLESTEROL 154 MG/DL (< 200); CREATININE 1.2 MG/DL (0.55-1.30); FERRITIN 27 NG/ML (8-388); GAMMA GLUTAMYL TRANSPEPTIDASE 55 U/L (5-85); HDL CHOLESTEROL 57 MG/DL (40-60); PHOSPHORUS 3.9 MG/DL (2.5-4.9); POTASSIUM 4.8 MMOL/L (3.5-5.1); SODIUM 143 MMOL/L (136-145); TRIGLYCERIDES 21 MG/DL (30-150)
--- NOTE | 2019-08-16 07:20 | NUR ---
NURSE NOTES: Nurse report given by Dario RN and GENTRY Cruz. Patient's awake and sitting at bed side to eat breakfast. AO x 3, eyes open spontaneously, breathing regular and unlabored, no s/s of distress or SOB. Bed low and locked, call light within reach, side rails x 2. IV is saline locked, flushed well and asymptomatic. Cellulitis present bilateral legs. Patient's on 2L nasal cannula. Will continue to monitor.
--- NOTE | 2019-08-16 07:22 | NUR ---
HAND-OFF: Report given to GENTRY Morris. Plan of care endorsed.
[2019-08-16 07:50] LABS: % IRON SATURATION 7 % (15-50); IRON 24 ug/dL (50-175); TOTAL IRON BINDING CAPACITY 358 ug/dL (250-450)
[2019-08-16 08:00] VITALS: BP 119/76
[2019-08-16] MEDS: Carvedilol 6.25mg Tab ORAL SCH ×2 (09:00→20:55)
[2019-08-16] MEDS: Lisinopril 2.5mg tab ORAL SCH (09:00)
[2019-08-16] MEDS: Augmentin 875mg Tab ORAL SCH ×2 (09:00→20:54)
[2019-08-16] MEDS: Aspirin Baby 81mg ORAL SCH (09:00)
[2019-08-16] MEDS: Spironolactone 25mg tab ORAL SCH (09:00)
[2019-08-16] MEDS: Digoxin 0.125mg tab ORAL SCH (09:01)
[2019-08-16] MEDS: traMADol 50mg tab ORAL PRN ×2 (09:01→20:56)
--- NOTE | 2019-08-16 09:50 | Pulmonology Progress Note ---
Assessment/Plan Assessment/Plan IMPRESSION: 1. CHF. 2. Chest pain. 3. Troponin leak. DISCUSSION: I will continue oxygen and pulmonary hygiene. Continue home medications. Cardiac evaluation. 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 Subjective Interval Events: None new Constitutional: Reports: no symptoms HEENT: Repors: no symptoms Respiratory: Reports: no symptoms Cardiovascular: Reports: no symptoms Gastrointestinal/Abdominal: Reports: no symptoms Allergies: Coded Allergies: SIMVASTATIN (Verified Allergy, Unknown, 07/03/19) Uncoded Allergies: STATINS (Allergy, Unknown, 08/13/19) Objective Last 24 Hour Vital Signs Date Time Temp Pulse Resp B/P (MAP) Pulse Ox O2 Delivery O2 Flow Rate FiO2 08/16/19 09:31 97.9 08/16/19 09:01 96 08/16/19 09:00 119/76 08/16/19 09:00 96 119/76 08/16/19 09:00 Nasal Cannula 2.0 08/16/19 08:00 97.9 96 20 119/76 (90) 96 08/16/19 08:00 97 08/16/19 05:34 100/66 08/16/19 04:00 96.6 90 18 100/66 (77) 99 08/16/19 04:00 96 08/16/19 00:00 97.4 94 18 110/63 (79) 98 08/16/19 00:00 97 08/15/19 21:23 94 107/70 08/15/19 21:00 Nasal Cannula 2.0 08/15/19 20:00 107 08/15/19 20:00 98.3 94 18 107/70 (82) 99 08/15/19 16:00 104 08/15/19 16:00 98.1 76 20 104/65 (78) 100 08/15/19 14:27 115/68 08/15/19 12:49 95 08/15/19 11:57 96.6 81 18 109/71 (84) 97 08/15/19 09:56 Nasal Cannula 2.0 Intake and Output 08/15/19 08/16/19 19:00 07:00 Intake Total 494 ml Output Total 600 ml Balance -106 ml Intake Oral 494 ml Output Urine Total 600 ml # Voids 5 General Appearance: no acute distress HEENT: normocephalic Respiratory/Chest: chest wall non-tender Cardiovascular: normal peripheral pulses Abdomen: normal bowel sounds Laboratory Tests 08/15/19 19:05: Sodium Level 141, Potassium Level 4.6, Chloride Level 102, Carbon Dioxide Level 35H, Anion Gap 4L, Blood Urea Nitrogen 24H, Creatinine 1.2, Estimat Glomerular Filtration Rate > 60, Glucose Level 115H, Calcium Level 8.4L, Magnesium Level 1.7L 08/16/19 05:59: Sodium Level 143, Potassium Level 4.8, Chloride Level 105, Carbon Dioxide Level 29, Anion Gap 9, Blood Urea Nitrogen 20H, Creatinine 1.2, Estimat Glomerular Filtration Rate > 60, Glucose Level 97, Calcium Level 8.4L, Magnesium Level 1.6L , White Blood Count 5.2, Red Blood Count 3.22L, Hemoglobin 9.9L, Hematocrit 30.9L, Mean Corpuscular Volume 96, Mean Corpuscular Hemoglobin 30.7, Mean Corpuscular Hemoglobin Concent 31.9L, Red Cell Distribution Width 16.2H, Platelet Count 95L, Mean Platelet Volume 7.4, Neutrophils (%) (Auto) , Lymphocytes (%) (Auto) , Monocytes (%) (Auto) , Eosinophils (%) (Auto) , Basophils (%) (Auto) , Differential Total Cells Counted 100, Neutrophils % ( Manual) 69, Lymphocytes % (Manual) 18L, Monocytes % (Manual) 7, Eosinophils % ( Manual) 4H, Basophils % (Manual) 2, Band Neutrophils 0, Platelet Estimate DecreasedL, Platelet Morphology Normal, Hypochromasia 1+, Anisocytosis 1+, Hemoglobin A1c 6.5H, Uric Acid 7.7H, Phosphorus Level 3.9, Iron Level 24L, Total Iron Binding Capacity 358, Percent Iron Saturation 7L, Unsaturated Iron Binding 334, Ferritin 27, Total Bilirubin 0.4, Gamma Glutamyl Transpeptidase 55 , Aspartate Amino Transf (AST/SGOT) 26, Alanine Aminotransferase (ALT/SGPT) 23, Alkaline Phosphatase 75, C-Reactive Protein, Quantitative 1.6H, Pro-B-Type Natriuretic Peptide 3370H, Total Protein 6.6, Albumin 2.9L, Globulin 3.7, Albumin/Globulin Ratio 0.8L, Triglycerides Level 21L, Cholesterol Level 154, LDL Cholesterol 88, HDL Cholesterol 57, Cholesterol/HDL Ratio 2.7L, Vitamin B12 Level 815, Folate 12.7, Thyroid Stimulating Hormone (TSH) 1.604 Current Medications Medications (Trade) Dose Ordered Sig/Marybeth Route PRN Reason Start Time Stop Time Status Last Admin Dose Admin Acetaminophen (Tylenol) 650 mg Q4H PRN ORAL Mild Pain/Temp > 100.5 08/13/19 22:45 09/12/19 22:44 Amoxicillin/ Clavulanate Potassium (Augmentin) 875 mg EVERY 12 HOURS ORAL 08/13/19 22:45 08/20/19 22:44 08/16/19 09:00 Aspirin (ASA) 81 mg DAILY ORAL 08/14/19 09:00 09/28/19 08:59 08/16/19 09:00 Atorvastatin Calcium (Lipitor) 40 mg BEDTIME ORAL 08/14/19 21:00 11/12/19 20:59 08/15/19 21:23 Carvedilol (Coreg) 6.25 mg EVERY 12 HOURS ORAL 08/14/19 09:00 09/13/19 08:59 08/16/19 09:00 Digoxin (Lanoxin) 0.125 mg DAILY ORAL 08/14/19 09:00 11/12/19 08:59 08/16/19 09:01 Furosemide (Lasix) 40 mg DAILY IV 08/14/19 12:15 09/13/19 12:14 08/16/19 09:01 Hydralazine HCl (Apresoline) 10 mg Q8HR ORAL 08/14/19 06:00 11/12/19 05:59 08/15/19 14:27 Iron Sucrose 100 mg/Sodium Chloride 60 ml @ 240 mls/hr BEDTIME IVPB 08/15/19 21:00 08/19/19 21:14 Lisinopril (ZestriL) 5 mg DAILY ORAL 08/14/19 09:00 09/13/19 08:59 08/16/19 09:00 Pantoprazole (Protonix) 40 mg DAILY ORAL 08/16/19 09:00 09/13/19 06:29 08/16/19 09:00 Spironolactone (Aldactone) 25 mg DAILY ORAL 08/14/19 12:15 09/13/19 12:14 08/16/19 09:00 Tramadol HCl (Ultram) 50 mg Q6H PRN ORAL severe pain 08/15/19 16:45 08/22/19 16:44 08/16/19 09:01 Frank Baca MD Aug 16, 2019 09:50
--- NOTE | 2019-08-16 10:00 | NUR ---
NURSE NOTES: Left message to Dr. Fitzpatrick regarding magnesium level 1.6. Awaiting for response.
--- NOTE | 2019-08-16 10:08 | General Progress Note ---
Assessment/Plan Status Narrative (1) CHF (2) Chest pain (3) Peripheral neuropathy Patient will be continued on Tramadol. D/w Dr. Renteria and he concurred. Subjective Date patient seen: Aug 16, 2019 Time patient seen: 09:45 - am Constitutional: Reports: weakness HEENT: Reports: no symptoms Cardiovascular: Reports: no symptoms Respiratory: Reports: no symptoms Gastrointestinal/Abdominal: Reports: no symptoms Genitourinary: Reports: no symptoms Neurologic/Psychiatric: Reports: no symptoms Endocrine: Reports: no symptoms Hematologic/Lymphatic: Reports: no symptoms Allergies: Coded Allergies: SIMVASTATIN (Verified Allergy, Unknown, 07/03/19) Uncoded Allergies: STATINS (Allergy, Unknown, 08/13/19) Subjective Patient is in bed and shows no signs of pain or distress. Has been tolerating the pain on the tramadol 2 doses in the last 24hrs. No new complaints at this time. Objective Last 24 Hour Vital Signs Date Time Temp Pulse Resp B/P (MAP) Pulse Ox O2 Delivery O2 Flow Rate FiO2 08/16/19 09:31 97.9 08/16/19 09:01 96 08/16/19 09:00 119/76 08/16/19 09:00 96 119/76 08/16/19 09:00 Nasal Cannula 2.0 08/16/19 08:00 97.9 96 20 119/76 (90) 96 08/16/19 08:00 97 08/16/19 05:34 100/66 08/16/19 04:00 96.6 90 18 100/66 (77) 99 08/16/19 04:00 96 08/16/19 00:00 97.4 94 18 110/63 (79) 98 08/16/19 00:00 97 08/15/19 21:23 94 107/70 08/15/19 21:00 Nasal Cannula 2.0 08/15/19 20:00 107 08/15/19 20:00 98.3 94 18 107/70 (82) 99 08/15/19 16:00 104 08/15/19 16:00 98.1 76 20 104/65 (78) 100 08/15/19 14:27 115/68 08/15/19 12:49 95 08/15/19 11:57 96.6 81 18 109/71 (84) 97 Intake and Output 08/15/19 08/16/19 19:00 07:00 Intake Total 494 ml Output Total 600 ml Balance -106 ml Intake Oral 494 ml Output Urine Total 600 ml # Voids 5 Laboratory Tests 08/15/19 19:05: Sodium Level 141, Potassium Level 4.6, Chloride Level 102, Carbon Dioxide Level 35H, Anion Gap 4L, Blood Urea Nitrogen 24H, Creatinine 1.2, Estimat Glomerular Filtration Rate > 60, Glucose Level 115H, Calcium Level 8.4L, Magnesium Level 1.7L 08/16/19 05:59: Sodium Level 143, Potassium Level 4.8, Chloride Level 105, Carbon Dioxide Level 29, Anion Gap 9, Blood Urea Nitrogen 20H, Creatinine 1.2, Estimat Glomerular Filtration Rate > 60, Glucose Level 97, Calcium Level 8.4L, Magnesium Level 1.6L , White Blood Count 5.2, Red Blood Count 3.22L, Hemoglobin 9.9L, Hematocrit 30.9L, Mean Corpuscular Volume 96, Mean Corpuscular Hemoglobin 30.7, Mean Corpuscular Hemoglobin Concent 31.9L, Red Cell Distribution Width 16.2H, Platelet Count 95L, Mean Platelet Volume 7.4, Neutrophils (%) (Auto) , Lymphocytes (%) (Auto) , Monocytes (%) (Auto) , Eosinophils (%) (Auto) , Basophils (%) (Auto) , Differential Total Cells Counted 100, Neutrophils % ( Manual) 69, Lymphocytes % (Manual) 18L, Monocytes % (Manual) 7, Eosinophils % ( Manual) 4H, Basophils % (Manual) 2, Band Neutrophils 0, Platelet Estimate DecreasedL, Platelet Morphology Normal, Hypochromasia 1+, Anisocytosis 1+, Hemoglobin A1c 6.5H, Uric Acid 7.7H, Phosphorus Level 3.9, Iron Level 24L, Total Iron Binding Capacity 358, Percent Iron Saturation 7L, Unsaturated Iron Binding 334, Ferritin 27, Total Bilirubin 0.4, Gamma Glutamyl Transpeptidase 55 , Aspartate Amino Transf (AST/SGOT) 26, Alanine Aminotransferase (ALT/SGPT) 23, Alkaline Phosphatase 75, C-Reactive Protein, Quantitative 1.6H, Pro-B-Type Natriuretic Peptide 3370H, Total Protein 6.6, Albumin 2.9L, Globulin 3.7, Albumin/Globulin Ratio 0.8L, Triglycerides Level 21L, Cholesterol Level 154, LDL Cholesterol 88, HDL Cholesterol 57, Cholesterol/HDL Ratio 2.7L, Vitamin B12 Level 815, Folate 12.7, Thyroid Stimulating Hormone (TSH) 1.604 Height (Feet): 5 Height (Inches): 9.00 Weight (Pounds): 200 General Appearance: no apparent distress, alert EENT: PERRL/EOMI, normal ENT inspection Neck: non-tender, normal alignment Cardiovascular: normal rate, regular rhythm Respiratory/Chest: decreased breath sounds Abdomen: non tender, soft Extremities: non-tender Edema: trace edema Neurologic: alert, oriented x 3 Skin: normal pigmentation Tremayne Fenton Aug 16, 2019 10:08
--- NOTE | 2019-08-16 10:17 | NUR ---
CASE MANAGEMENT:REVIEW 08/16/19 SI: AC/CHR CHF. PERICARDIAL EFFUSION MYOCARDIAL NECROSIS 97.9 20 119/76 96% ON 2L/NC H/H-9.9/30.9 PLT-95 MAG-1.6 BNP+3370 IS: IV VENOFER QHS LIPITOR PO QHS ALDACTONE PO QD IV LASIX QD COREG PO Q12 LISINOPRIL PO QD ASA PO QD DIGOXIN PO QD HYDRALAZINE PO Q8HRS AUGMENTIN PO Q12 : TELEMETRY STATUS DCP: FROM HOME PLAN: PATIENT HAS AGREED TO LEFT HEART CATH ONCE COVID-19 PANDEMIC IS OVER
--- NOTE | 2019-08-16 10:30 | NUR ---
DISCHARGE PLANNING PATIENT IS FROM HOME MESSAGE LEFT FOR DR BLACK REGARDING DISCHARGE PLAN
--- NOTE | 2019-08-16 10:51 | NUR ---
*-*INSURANCE*-* ALL CLINICALS AND REVIEWS FAXED TO: [employer] P: [phone] F: [phone] & [employer] ([employer]) P: [phone] F: [phone]
--- NOTE | 2019-08-16 10:53 | Infectious Diseases Prog Note ---
Assessment/Plan Assessment/Plan IMPRESSION: Stasis dermatitis, may have mild nonpurulent cellulitis. Congestive heart failure and cardiomyopathy with EF=15% Anemia, Thrombocytopenia, Pulmonary hypertension, COPD. Elevated troponin RECOMMENDATION: Continue Augmentin. We will follow up the clinical course. Subjective ROS Limited/Unobtainable: Yes Allergies: Coded Allergies: SIMVASTATIN (Verified Allergy, Unknown, 07/03/19) Uncoded Allergies: STATINS (Allergy, Unknown, 08/13/19) Objective Vital Signs Last 24 Hour Vital Signs Date Time Temp Pulse Resp B/P (MAP) Pulse Ox O2 Delivery O2 Flow Rate FiO2 08/16/19 09:31 97.9 08/16/19 09:01 96 08/16/19 09:00 119/76 08/16/19 09:00 96 119/76 08/16/19 09:00 Nasal Cannula 2.0 08/16/19 08:00 97.9 96 20 119/76 (90) 96 08/16/19 08:00 97 08/16/19 05:34 100/66 08/16/19 04:00 96.6 90 18 100/66 (77) 99 08/16/19 04:00 96 08/16/19 00:00 97.4 94 18 110/63 (79) 98 08/16/19 00:00 97 08/15/19 21:23 94 107/70 08/15/19 21:00 Nasal Cannula 2.0 08/15/19 20:00 107 08/15/19 20:00 98.3 94 18 107/70 (82) 99 08/15/19 16:00 104 08/15/19 16:00 98.1 76 20 104/65 (78) 100 08/15/19 14:27 115/68 08/15/19 12:49 95 08/15/19 11:57 96.6 81 18 109/71 (84) 97 Height (Feet): 5 Height (Inches): 9.00 Weight (Pounds): 200 General Appearance: no acute distress HEENT: mucous membranes moist Respiratory/Chest: lungs clear Cardiovascular: normal rate Abdomen: soft, non tender Extremities: other - legs edema Skin: other - skin changes in legs Neurologic/Psychiatric: other - sleeping Laboratory Tests Test 08/15/19 19:05 08/16/19 05:59 Sodium Level 141 MMOL/L (136-145) 143 MMOL/L (136-145) Potassium Level 4.6 MMOL/L (3.5-5.1) 4.8 MMOL/L (3.5-5.1) Chloride Level 102 MMOL/L (98-107) 105 MMOL/L (98-107) Carbon Dioxide Level 35 MMOL/L (21-32) H 29 MMOL/L (21-32) Anion Gap 4 mmol/L (5-15) L 9 mmol/L (5-15) Blood Urea Nitrogen 24 mg/dL (7-18) H 20 mg/dL (7-18) H Creatinine 1.2 MG/DL (0.55-1.30) 1.2 MG/DL (0.55-1.30) Estimat Glomerular Filtration Rate > 60 mL/min (>60) > 60 mL/min (>60) Glucose Level 115 MG/DL (74-106) H 97 MG/DL (74-106) Calcium Level 8.4 MG/DL (8.5-10.1) L 8.4 MG/DL (8.5-10.1) L Magnesium Level 1.7 MG/DL (1.8-2.4) L 1.6 MG/DL (1.8-2.4) L White Blood Count 5.2 K/UL (4.8-10.8) Red Blood Count 3.22 M/UL (4.70-6.10) L Hemoglobin 9.9 G/DL (14.2-18.0) L Hematocrit 30.9 % (42.0-52.0) L Mean Corpuscular Volume 96 FL (80-99) Mean Corpuscular Hemoglobin 30.7 PG (27.0-31.0) Mean Corpuscular Hemoglobin Concent 31.9 G/DL (32.0-36.0) L Red Cell Distribution Width 16.2 % (11.6-14.8) H Platelet Count 95 K/UL (150-450) L Mean Platelet Volume 7.4 FL (6.5-10.1) Neutrophils (%) (Auto) % (45.0-75.0) Lymphocytes (%) (Auto) % (20.0-45.0) Monocytes (%) (Auto) % (1.0-10.0) Eosinophils (%) (Auto) % (0.0-3.0) Basophils (%) (Auto) % (0.0-2.0) Differential Total Cells Counted 100 Neutrophils % (Manual) 69 % (45-75) Lymphocytes % (Manual) 18 % (20-45) L Monocytes % (Manual) 7 % (1-10) Eosinophils % (Manual) 4 % (0-3) H Basophils % (Manual) 2 % (0-2) Band Neutrophils 0 % (0-8) Platelet Estimate Decreased L Platelet Morphology Normal Hypochromasia 1+ Anisocytosis 1+ Hemoglobin A1c 6.5 % (4.3-6.0) H Uric Acid 7.7 MG/DL (2.6-7.2) H Phosphorus Level 3.9 MG/DL (2.5-4.9) Iron Level 24 ug/dL (50-175) L Total Iron Binding Capacity 358 ug/dL (250-450) Percent Iron Saturation 7 % (15-50) L Unsaturated Iron Binding 334 ug/dL (112-346) Ferritin 27 NG/ML (8-388) Total Bilirubin 0.4 MG/DL (0.2-1.0) Gamma Glutamyl Transpeptidase 55 U/L (5-85) Aspartate Amino Transf (AST/SGOT) 26 U/L (15-37) Alanine Aminotransferase (ALT/SGPT) 23 U/L (12-78) Alkaline Phosphatase 75 U/L (46-116) C-Reactive Protein, Quantitative 1.6 mg/dL (0.00-0.90) H Pro-B-Type Natriuretic Peptide 3370 pg/mL (0-125) H Total Protein 6.6 G/DL (6.4-8.2) Albumin 2.9 G/DL (3.4-5.0) L Globulin 3.7 g/dL Albumin/Globulin Ratio 0.8 (1.0-2.7) L Triglycerides Level 21 MG/DL (30-150) L Cholesterol Level 154 MG/DL (< 200) LDL Cholesterol 88 mg/dL (<100) HDL Cholesterol 57 MG/DL (40-60) Cholesterol/HDL Ratio 2.7 (3.3-4.4) L Vitamin B12 Level 815 PG/ML (193-986) Folate 12.7 NG/ML (8.6-58.9) Thyroid Stimulating Hormone (TSH) 1.604 uiU/mL (0.358-3.740) Current Medications Medications (Trade) Dose Ordered Sig/Marybeth Route PRN Reason Start Time Stop Time Status Last Admin Dose Admin Acetaminophen (Tylenol) 650 mg Q4H PRN ORAL Mild Pain/Temp > 100.5 08/13/19 22:45 09/12/19 22:44 Amoxicillin/ Clavulanate Potassium (Augmentin) 875 mg EVERY 12 HOURS ORAL 08/13/19 22:45 08/20/19 22:44 08/16/19 09:00 Aspirin (ASA) 81 mg DAILY ORAL 08/14/19 09:00 09/28/19 08:59 08/16/19 09:00 Atorvastatin Calcium (Lipitor) 40 mg BEDTIME ORAL 08/14/19 21:00 11/12/19 20:59 08/15/19 21:23 Carvedilol (Coreg) 6.25 mg EVERY 12 HOURS ORAL 08/14/19 09:00 09/13/19 08:59 08/16/19 09:00 Digoxin (Lanoxin) 0.125 mg DAILY ORAL 08/14/19 09:00 11/12/19 08:59 08/16/19 09:01 Furosemide (Lasix) 40 mg DAILY IV 08/14/19 12:15 09/13/19 12:14 08/16/19 09:01 Hydralazine HCl (Apresoline) 10 mg Q8HR ORAL 08/14/19 06:00 11/12/19 05:59 08/15/19 14:27 Iron Sucrose 100 mg/Sodium Chloride 60 ml @ 240 mls/hr BEDTIME IVPB 08/15/19 21:00 08/19/19 21:14 Lisinopril (ZestriL) 5 mg DAILY ORAL 08/14/19 09:00 09/13/19 08:59 08/16/19 09:00 Pantoprazole (Protonix) 40 mg DAILY ORAL 08/16/19 09:00 09/13/19 06:29 08/16/19 09:00 Spironolactone (Aldactone) 25 mg DAILY ORAL 08/14/19 12:15 09/13/19 12:14 08/16/19 09:00 Tramadol HCl (Ultram) 50 mg Q6H PRN ORAL severe pain 08/15/19 16:45 08/22/19 16:44 08/16/19 09:01 Carmelo Canada MD Aug 16, 2019 10:53
--- NOTE | 2019-08-16 11:30 | NUR ---
PT NOTES Attempted to see patient for PT treatment. Patient refused treatment at this time. Will follow up in PM if time allows.
--- NOTE | 2019-08-16 11:52 | Hematology/Onc Progress Note ---
Assessment/Plan Assessment/Plan Assessment and Recs: # Thrombocytopenia - potential causes multifactorial, evaluate liver and viral etiologies to begin, also could be related to underlying medications patient has received. HIV is neg --> Hep panel and HIV ordered (hiv neg) --> US abd to evaluate for cirrhosis and hsm ordered --> ++ SPLENOMEGALY IS NOTED --> Peripheral smear ordered to evaluate for blasts /schistocytes --> none noted --> abx and other meds have been reviewed --> ok for ppx if plt >50k w/ either heparin or lovenox --> Transfuse if Plt < 20k and fever, or if Plt < 10k without fever --> plt trend 93k-->92k # Anemia of iron deficiency, with a ferritin that was 29 --> Anemia workup has been ordered, rule out gi bleed --> No evidence of hemolysis is noted, peripheral smear has been reviewed. --> Hgb goal >7. Transfuse prn. --> IRON Venofer 100mg iv x5 days ordered --> Medications have been reviewed --> hgb 10.4-->10.2-->9.8 # New onset dilated cardiomyopathy with severe LV systolic dysfunction and LVEF at 15%, drop of LVEF from 55% measured in 2015, require right and left heart cath to rule out CAD. --> patient is refusing this test now and do not wish to be transferred out. He realizes the risk of his actions which may include . Dr. Blair teaching dietitian also notified. In the meantime we ll continue guideline recommended therapy for heart failure. --> as per cards recs # Severe pulmonary HTN due to left heart failure, continue diuretics. --> pulm consulted # MARGUERITE, probably cardiorenal syndrome. --> per renal # Acute combined systolic and diastolic CHF. # Small pericardial effusion likely element of right heart failure --> per cards care Appreciate consultation and eladio RN Subjective Constitutional: Denies: no symptoms, chills, fever, malaise, weakness, other HEENT: Denies: no symptoms, eye pain, blurred vision, tearing, double vision, ear pain, ear discharge, nose pain, nose congestion, throat pain, throat swelling, mouth pain, mouth swelling, other Cardiovascular: Denies: no symptoms, chest pain, edema, irregular heart rate, lightheadedness, palpitations, syncope, other Respiratory: Denies: no symptoms, cough, shortness of breath, SOB with excertion, SOB at rest, sputum, wheezing, other Gastrointestinal/Abdominal: Denies: no symptoms, abdomen distended, abdominal pain, black stools, tarry stools, blood in stool, constipated, diarrhea, difficulty swallowing, nausea, poor appetite, poor fluid intake, rectal bleeding , vomiting, other Genitourinary: Denies: no symptoms, burning, discharge, frequency, flank pain, hematuria, incontinence, pain, urgency, other Neurologic/Psychiatric: Denies: no symptoms, anxiety, depressed, emotional problems, headache, numbness, paresthesia, pre-existing deficit, seizure, tingling, tremors, weakness, other Endocrine: Denies: no symptoms, excessive sweating, flushing, intolerance to cold, intolerance to heat, increased hunger, increased thirst, increased urine, unexplained weight gain, unexplained weight loss, other Hematologic/Lymphatic: Denies: no symptoms, anemia, easy bleeding, easy bruising, adenopathy, other Allergies: Coded Allergies: SIMVASTATIN (Verified Allergy, Unknown, 07/03/19) Uncoded Allergies: STATINS (Allergy, Unknown, 08/13/19) Subjective 08/14 less cp, have ordered for iv iron, cbc and bmp are pending 08/15 no bleeding, labs noted, remains on iv iron, labs noted, ferritin low at 27 , no bleeding Objective Objective Current Medications Medications (Trade) Dose Ordered Sig/Marybeth Route PRN Reason Start Time Stop Time Status Last Admin Dose Admin Acetaminophen (Tylenol) 650 mg Q4H PRN ORAL Mild Pain/Temp > 100.5 08/13/19 22:45 09/12/19 22:44 Amoxicillin/ Clavulanate Potassium (Augmentin) 875 mg EVERY 12 HOURS ORAL 08/13/19 22:45 08/20/19 22:44 08/16/19 09:00 Aspirin (ASA) 81 mg DAILY ORAL 08/14/19 09:00 09/28/19 08:59 08/16/19 09:00 Atorvastatin Calcium (Lipitor) 40 mg BEDTIME ORAL 08/14/19 21:00 11/12/19 20:59 08/15/19 21:23 Carvedilol (Coreg) 6.25 mg EVERY 12 HOURS ORAL 08/14/19 09:00 09/13/19 08:59 08/16/19 09:00 Digoxin (Lanoxin) 0.125 mg DAILY ORAL 08/14/19 09:00 11/12/19 08:59 08/16/19 09:01 Furosemide (Lasix) 40 mg DAILY IV 08/14/19 12:15 09/13/19 12:14 08/16/19 09:01 Hydralazine HCl (Apresoline) 10 mg Q8HR ORAL 08/14/19 06:00 11/12/19 05:59 08/15/19 14:27 Iron Sucrose 100 mg/Sodium Chloride 60 ml @ 240 mls/hr BEDTIME IVPB 08/15/19 21:00 08/19/19 21:14 Lisinopril (ZestriL) 5 mg DAILY ORAL 08/14/19 09:00 09/13/19 08:59 08/16/19 09:00 Pantoprazole (Protonix) 40 mg DAILY ORAL 08/16/19 09:00 09/13/19 06:29 08/16/19 09:00 Spironolactone (Aldactone) 25 mg DAILY ORAL 08/14/19 12:15 09/13/19 12:14 08/16/19 09:00 Tramadol HCl (Ultram) 50 mg Q6H PRN ORAL severe pain 08/15/19 16:45 08/22/19 16:44 08/16/19 09:01 Last 24 Hour Vital Signs Date Time Temp Pulse Resp B/P (MAP) Pulse Ox O2 Delivery O2 Flow Rate FiO2 08/16/19 09:31 97.9 08/16/19 09:01 96 08/16/19 09:00 119/76 08/16/19 09:00 96 119/76 08/16/19 09:00 Nasal Cannula 2.0 08/16/19 08:00 97.9 96 20 119/76 (90) 96 08/16/19 08:00 97 08/16/19 05:34 100/66 08/16/19 04:00 96.6 90 18 100/66 (77) 99 08/16/19 04:00 96 08/16/19 00:00 97.4 94 18 110/63 (79) 98 08/16/19 00:00 97 08/15/19 21:23 94 107/70 3/25/20 21:00 Nasal Cannula 2.0 08/15/19 20:00 107 08/15/19 20:00 98.3 94 18 107/70 (82) 99 08/15/19 16:00 104 08/15/19 16:00 98.1 76 20 104/65 (78) 100 08/15/19 14:27 115/68 08/15/19 12:49 95 08/15/19 11:57 96.6 81 18 109/71 (84) 97 08/15/19 09:56 Nasal Cannula 2.0 08/15/19 09:11 95 08/15/19 09:01 118/71 08/15/19 09:01 74 118/71 08/15/19 09:00 74 08/15/19 08:00 96.7 74 19 118/71 (87) 98 08/15/19 05:30 116/72 08/15/19 04:00 97 08/15/19 04:00 97.4 78 16 116/72 (87) 99 08/15/19 04:00 Nasal Cannula 2.0 08/15/19 00:00 Nasal Cannula 2.0 08/15/19 00:00 97.6 88 16 113/77 (89) 100 08/15/19 00:00 93 08/14/19 21:46 129/74 08/14/19 21:00 91 129/74 08/14/19 21:00 Nasal Cannula 2.0 08/14/19 20:00 91 08/14/19 20:00 97.7 91 16 129/74 (92) 100 08/14/19 16:01 88 08/14/19 16:00 97.5 97 20 118/82 (94) 100 08/14/19 14:26 118/80 08/14/19 14:25 92 118/80 (93) 08/14/19 12:00 97.7 83 20 149/66 (93) 99 08/14/19 11:53 93 Intake and Output 08/15/19 08/16/19 19:02 07:02 Intake Total 494 ml Output Total 600 ml Balance -106 ml Intake Oral 494 ml Output Urine Total 600 ml # Voids 5 Labs Test 08/13/19 15:40 08/13/19 18:21 08/14/19 05:33 08/15/19 19:05 White Blood Count 5.5 K/UL (4.8-10.8) Red Blood Count 3.48 M/UL (4.70-6.10) Hemoglobin 10.6 G/DL (14.2-18.0) Hematocrit 34.2 % (42.0-52.0) Mean Corpuscular Volume 98 FL (80-99) Mean Corpuscular Hemoglobin 30.5 PG (27.0-31.0) Mean Corpuscular Hemoglobin Concent 31.0 G/DL (32.0-36.0) Red Cell Distribution Width 17.7 % (11.6-14.8) Platelet Count 93 K/UL (150-450) Mean Platelet Volume 8.8 FL (6.5-10.1) Neutrophils (%) (Auto) % (45.0-75.0) Lymphocytes (%) (Auto) % (20.0-45.0) Monocytes (%) (Auto) % (1.0-10.0) Eosinophils (%) (Auto) % (0.0-3.0) Basophils (%) (Auto) % (0.0-2.0) Differential Total Cells Counted 100 Neutrophils % (Manual) 71 % (45-75) Lymphocytes % (Manual) 15 % (20-45) Monocytes % (Manual) 9 % (1-10) Eosinophils % (Manual) 3 % (0-3) Basophils % (Manual) 2 % (0-2) Band Neutrophils 0 % (0-8) Platelet Estimate Decreased Platelet Morphology Normal Hypochromasia 1+ Anisocytosis 1+ Sodium Level 142 MMOL/L (136-145) 141 MMOL/L (136-145) Potassium Level 4.4 MMOL/L (3.5-5.1) 4.6 MMOL/L (3.5-5.1) Chloride Level 103 MMOL/L (98-107) 102 MMOL/L (98-107) Carbon Dioxide Level 30 MMOL/L (21-32) 35 MMOL/L (21-32) Anion Gap 9 mmol/L (5-15) 4 mmol/L (5-15) Blood Urea Nitrogen 28 mg/dL (7-18) 24 mg/dL (7-18) Creatinine 1.2 MG/DL (0.55-1.30) 1.2 MG/DL (0.55-1.30) Estimat Glomerular Filtration Rate > 60 mL/min (>60) > 60 mL/min (>60) Glucose Level 80 MG/DL (74-106) 115 MG/DL (74-106) Calcium Level 8.7 MG/DL (8.5-10.1) 8.4 MG/DL (8.5-10.1) Total Bilirubin 0.6 MG/DL (0.2-1.0) Aspartate Amino Transf (AST/SGOT) 34 U/L (15-37) Alanine Aminotransferase (ALT/SGPT) 22 U/L (12-78) Alkaline Phosphatase 88 U/L (46-116) Troponin I 0.061 ng/mL (0.000-0.056) 0.050 ng/mL (0.000-0.056) 0.057 ng/mL (0.000-0.056) Pro-B-Type Natriuretic Peptide 5087 pg/mL (0-125) Total Protein 6.9 G/DL (6.4-8.2) Albumin 3.4 G/DL (3.4-5.0) Globulin 3.5 g/dL Albumin/Globulin Ratio 1.0 (1.0-2.7) Ferritin 57 NG/ML (8-388) Carcinoembryonic Antigen 3.2 ng/mL (0.0-4.7) Magnesium Level 1.7 MG/DL (1.8-2.4) Test 08/16/19 05:59 White Blood Count 5.2 K/UL (4.8-10.8) Red Blood Count 3.22 M/UL (4.70-6.10) Hemoglobin 9.9 G/DL (14.2-18.0) Hematocrit 30.9 % (42.0-52.0) Mean Corpuscular Volume 96 FL (80-99) Mean Corpuscular Hemoglobin 30.7 PG (27.0-31.0) Mean Corpuscular Hemoglobin Concent 31.9 G/DL (32.0-36.0) Red Cell Distribution Width 16.2 % (11.6-14.8) Platelet Count 95 K/UL (150-450) Mean Platelet Volume 7.4 FL (6.5-10.1) Neutrophils (%) (Auto) % (45.0-75.0) Lymphocytes (%) (Auto) % (20.0-45.0) Monocytes (%) (Auto) % (1.0-10.0) Eosinophils (%) (Auto) % (0.0-3.0) Basophils (%) (Auto) % (0.0-2.0) Differential Total Cells Counted 100 Neutrophils % (Manual) 69 % (45-75) Lymphocytes % (Manual) 18 % (20-45) Monocytes % (Manual) 7 % (1-10) Eosinophils % (Manual) 4 % (0-3) Basophils % (Manual) 2 % (0-2) Band Neutrophils 0 % (0-8) Platelet Estimate Decreased Platelet Morphology Normal Hypochromasia 1+ Anisocytosis 1+ Sodium Level 143 MMOL/L (136-145) Potassium Level 4.8 MMOL/L (3.5-5.1) Chloride Level 105 MMOL/L (98-107) Carbon Dioxide Level 29 MMOL/L (21-32) Anion Gap 9 mmol/L (5-15) Blood Urea Nitrogen 20 mg/dL (7-18) Creatinine 1.2 MG/DL (0.55-1.30) Estimat Glomerular Filtration Rate > 60 mL/min (>60) Glucose Level 97 MG/DL (74-106) Hemoglobin A1c 6.5 % (4.3-6.0) Uric Acid 7.7 MG/DL (2.6-7.2) Calcium Level 8.4 MG/DL (8.5-10.1) Phosphorus Level 3.9 MG/DL (2.5-4.9) Magnesium Level 1.6 MG/DL (1.8-2.4) Iron Level 24 ug/dL (50-175) Total Iron Binding Capacity 358 ug/dL (250-450) Percent Iron Saturation 7 % (15-50) Unsaturated Iron Binding 334 ug/dL (112-346) Ferritin 27 NG/ML (8-388) Total Bilirubin 0.4 MG/DL (0.2-1.0) Gamma Glutamyl Transpeptidase 55 U/L (5-85) Aspartate Amino Transf (AST/SGOT) 26 U/L (15-37) Alanine Aminotransferase (ALT/SGPT) 23 U/L (12-78) Alkaline Phosphatase 75 U/L (46-116) C-Reactive Protein, Quantitative 1.6 mg/dL (0.00-0.90) Pro-B-Type Natriuretic Peptide 3370 pg/mL (0-125) Total Protein 6.6 G/DL (6.4-8.2) Albumin 2.9 G/DL (3.4-5.0) Globulin 3.7 g/dL Albumin/Globulin Ratio 0.8 (1.0-2.7) Triglycerides Level 21 MG/DL (30-150) Cholesterol Level 154 MG/DL (< 200) LDL Cholesterol 88 mg/dL (<100) HDL Cholesterol 57 MG/DL (40-60) Cholesterol/HDL Ratio 2.7 (3.3-4.4) Vitamin B12 Level 815 PG/ML (193-986) Folate 12.7 NG/ML (8.6-58.9) Thyroid Stimulating Hormone (TSH) 1.604 uiU/mL (0.358-3.740) Height (Feet): 5 Height (Inches): 9.00 Weight (Pounds): 200 Objective Vitals: reviewed General: NAD Neck: supple Chest: clear breath sounds bilaterally noted crackles+++ Cardiovascular: RRR, no s3, s4 Abdomen: soft, nontender, nd Extremities: n1+ edema, normal range of motion Mental: alert Labs: noted Mihai Jean MD Aug 16, 2019 11:52
--- NOTE | 2019-08-16 11:58 | General Progress Note ---
Assessment/Plan Problem List: (1) HTN (hypertension) ICD Codes: I10 - HTN (hypertension) SNOMED: 26822895 (2) Pneumonia ICD Codes: J18.9 - Pneumonia SNOMED: 275156255 (3) SOB (shortness of breath) ICD Codes: R06.02 - Shortness of breath SNOMED: 565659244 (4) ACS (acute coronary syndrome) ICD Codes: I24.9 - Acute ischemic heart disease, unspecified SNOMED: 024247420 (5) CHF (congestive heart failure) ICD Codes: I50.9 - Heart failure, unspecified SNOMED: 77287767 (6) Anemia ICD Codes: D64.9 - Anemia, unspecified SNOMED: 286071631 (7) Cardiomyopathy ICD Codes: I42.9 - Cardiomyopathy, unspecified SNOMED: 07841347 Assessment/Plan: chf sob chronic pain weak check lytes no cp arrythmia leg edema Subjective Respiratory: Reports: shortness of breath Allergies: Coded Allergies: SIMVASTATIN (Verified Allergy, Unknown, 07/03/19) Uncoded Allergies: STATINS (Allergy, Unknown, 08/13/19) Objective Last 24 Hour Vital Signs Date Time Temp Pulse Resp B/P (MAP) Pulse Ox O2 Delivery O2 Flow Rate FiO2 08/16/19 09:31 97.9 08/16/19 09:01 96 08/16/19 09:00 119/76 08/16/19 09:00 96 119/76 08/16/19 09:00 Nasal Cannula 2.0 08/16/19 08:00 97.9 96 20 119/76 (90) 96 08/16/19 08:00 97 08/16/19 05:34 100/66 08/16/19 04:00 96.6 90 18 100/66 (77) 99 08/16/19 04:00 96 08/16/19 00:00 97.4 94 18 110/63 (79) 98 08/16/19 00:00 97 08/15/19 21:23 94 107/70 08/15/19 21:00 Nasal Cannula 2.0 08/15/19 20:00 107 08/15/19 20:00 98.3 94 18 107/70 (82) 99 08/15/19 16:00 104 08/15/19 16:00 98.1 76 20 104/65 (78) 100 08/15/19 14:27 115/68 08/15/19 12:49 95 Intake and Output 08/15/19 08/16/19 19:00 07:00 Intake Total 494 ml Output Total 600 ml Balance -106 ml Intake Oral 494 ml Output Urine Total 600 ml # Voids 5 Laboratory Tests 08/15/19 19:05: Sodium Level 141, Potassium Level 4.6, Chloride Level 102, Carbon Dioxide Level 35H, Anion Gap 4L, Blood Urea Nitrogen 24H, Creatinine 1.2, Estimat Glomerular Filtration Rate > 60, Glucose Level 115H, Calcium Level 8.4L, Magnesium Level 1.7L 08/16/19 05:59: Sodium Level 143, Potassium Level 4.8, Chloride Level 105, Carbon Dioxide Level 29, Anion Gap 9, Blood Urea Nitrogen 20H, Creatinine 1.2, Estimat Glomerular Filtration Rate > 60, Glucose Level 97, Calcium Level 8.4L, Magnesium Level 1.6L , White Blood Count 5.2, Red Blood Count 3.22L, Hemoglobin 9.9L, Hematocrit 30.9L, Mean Corpuscular Volume 96, Mean Corpuscular Hemoglobin 30.7, Mean Corpuscular Hemoglobin Concent 31.9L, Red Cell Distribution Width 16.2H, Platelet Count 95L, Mean Platelet Volume 7.4, Neutrophils (%) (Auto) , Lymphocytes (%) (Auto) , Monocytes (%) (Auto) , Eosinophils (%) (Auto) , Basophils (%) (Auto) , Differential Total Cells Counted 100, Neutrophils % ( Manual) 69, Lymphocytes % (Manual) 18L, Monocytes % (Manual) 7, Eosinophils % ( Manual) 4H, Basophils % (Manual) 2, Band Neutrophils 0, Platelet Estimate DecreasedL, Platelet Morphology Normal, Hypochromasia 1+, Anisocytosis 1+, Hemoglobin A1c 6.5H, Uric Acid 7.7H, Phosphorus Level 3.9, Iron Level 24L, Total Iron Binding Capacity 358, Percent Iron Saturation 7L, Unsaturated Iron Binding 334, Ferritin 27, Total Bilirubin 0.4, Gamma Glutamyl Transpeptidase 55 , Aspartate Amino Transf (AST/SGOT) 26, Alanine Aminotransferase (ALT/SGPT) 23, Alkaline Phosphatase 75, C-Reactive Protein, Quantitative 1.6H, Pro-B-Type Natriuretic Peptide 3370H, Total Protein 6.6, Albumin 2.9L, Globulin 3.7, Albumin/Globulin Ratio 0.8L, Triglycerides Level 21L, Cholesterol Level 154, LDL Cholesterol 88, HDL Cholesterol 57, Cholesterol/HDL Ratio 2.7L, Vitamin B12 Level 815, Folate 12.7, Thyroid Stimulating Hormone (TSH) 1.604 Height (Feet): 5 Height (Inches): 9.00 Weight (Pounds): 200 Cardiovascular: normal rate Respiratory/Chest: lungs clear Felisa Blair MD Aug 16, 2019 11:58
[2019-08-16 12:00] VITALS: BP 110/68
--- NOTE | 2019-08-16 12:26 | NUR ---
*-*DISCHARGE PLANNING*-* CLINICALS HAS BEEN FAXED TO: [facility] P: [phone] F: [phone] WAITING FOR ACCEPTANCE
--- NOTE | 2019-08-16 14:41 | NUR ---
*-*DISCHARGE PLANNING*-* PATIENT HAS BEEN ACCEPTED WITH [facility] P: [phone]. SPOKE WITH [facility] WHO STATED THEY WILL SERVICE THE PATIENT UPON DISCHARGE.
[2019-08-16 16:00] VITALS: BP 122/69
--- NOTE | 2019-08-16 16:20 | NUR ---
NURSE NOTES: Left message to Dr. Fitzpatrick regarding patient had 2 nonconsecutive episodes of V-tachs. Awaiting for response.
--- NOTE | 2019-08-16 18:42 | NUR ---
NURSE NOTES: Dr. Fitzpatrick called back for order of Magnesium Sulfate 2gm IVPB x1dose. Order acknowledged and carried out.
--- NOTE | 2019-08-16 19:32 | NUR ---
HAND-OFF: Report given to GENTRY Bishop and GENTRY Cruz. Patient's stable, plan of care endorsed.
--- NOTE | 2019-08-16 19:41 | NUR ---
NURSE NOTES: Received report from GENTRY Morris. Patient awake, alert, and verbally responsive. Patient in semi-hair's position with 2L of oxygen per nasal cannula. IV intact and flushed. No erythema, bleeding, or infiltration. Bed in lowest position. Brakes engaged. Side rails raised. Call light placed within reach. Will continue to monitor.
--- NOTE | 2019-08-16 19:48 | NUR ---
NURSE NOTES: Called and left a message to Dr. Fitzpatrick regarding patient's refusal to take IV Magnesium. Awaiting call back.
[2019-08-16 20:00] VITALS: BP 121/85
[2019-08-16] MEDS: Iron Sucrose 100 MG in NS 55 ML IVPB SCH (20:38)
[2019-08-16] MEDS: Atorvastatin 20mg tab ORAL SCH (20:56)
--- NOTE | 2019-08-16 21:54 | NUR ---
NURSE NOTES: Called and left a message with regarding pts request for a breathing treatment. Awaiting call back.
[2019-08-16] MEDS: Magnesium Oxide 400mg tab ORAL SCH (22:00)
--- NOTE | 2019-08-16 22:10 | NUR ---
NURSE NOTES: Dr. Fitzpatrick called back and ordered for Magnesium Oxide 400mg PO Q8H for 2 days instead of IV Magnesium Sulfate. Order carried out and medication given.
--- NOTE | 2019-08-16 22:55 | Cardiology Progress Note ---
Assessment/Plan Assessment/Plan 1. Slight elevation of troponin I level due to myocardial necrosis, the patient agreed to right and left heart cath once COVID-19 outbreak is over. 2. Acute on chronic combined systolic and diastolic congestive heart failure, continue the current therapy. 3. History of hypertension. 4. Moderate pulmonary hypertension due to left heart failure. 5. Small pericardial effusion, likely due to element of right heart failure. 6. History of chronic kidney disease, repeat BMP and Mg level today. 7. Non-sustained ventricular tachycardia, Mg oxide 400mg po tid for 2 days. Subjective Subjective Sinus rhythm at rate of 98. Had a short run of NSVT. Objective Last 24 Hour Vital Signs Date Time Temp Pulse Resp B/P (MAP) Pulse Ox O2 Delivery O2 Flow Rate FiO2 08/16/19 21:56 97.0 08/16/19 21:00 Nasal Cannula 2.0 08/16/19 20:57 121/85 08/16/19 20:55 98 121/85 08/16/19 20:00 94 08/16/19 20:00 97.0 98 20 121/85 (97) 100 08/16/19 16:00 98.1 94 20 122/69 (86) 99 08/16/19 16:00 96 08/16/19 13:59 109/46 08/16/19 12:00 98.1 96 20 110/68 (82) 100 08/16/19 12:00 91 08/16/19 09:01 96 08/16/19 09:00 119/76 08/16/19 09:00 96 119/76 08/16/19 09:00 Nasal Cannula 2.0 08/16/19 08:00 97.9 96 20 119/76 (90) 96 08/16/19 08:00 97 08/16/19 05:34 100/66 08/16/19 04:00 96.6 90 18 100/66 (77) 99 08/16/19 04:00 96 08/16/19 00:00 97.4 94 18 110/63 (79) 98 08/16/19 00:00 97 Intake and Output 08/15/19 08/16/19 19:00 07:00 Intake Total 494 ml Output Total 600 ml Balance -106 ml Intake Oral 494 ml Output Urine Total 600 ml # Voids 5 2D Echo: DCM, LVEF 15%, Restricitve LV physio, Gloabl LV HK, RAP 15, RVSP 53, Mod MR Laboratory Tests Test 08/16/19 05:59 White Blood Count 5.2 K/UL (4.8-10.8) Red Blood Count 3.22 M/UL (4.70-6.10) L Hemoglobin 9.9 G/DL (14.2-18.0) L Hematocrit 30.9 % (42.0-52.0) L Mean Corpuscular Volume 96 FL (80-99) Mean Corpuscular Hemoglobin 30.7 PG (27.0-31.0) Mean Corpuscular Hemoglobin Concent 31.9 G/DL (32.0-36.0) L Red Cell Distribution Width 16.2 % (11.6-14.8) H Platelet Count 95 K/UL (150-450) L Mean Platelet Volume 7.4 FL (6.5-10.1) Neutrophils (%) (Auto) % (45.0-75.0) Lymphocytes (%) (Auto) % (20.0-45.0) Monocytes (%) (Auto) % (1.0-10.0) Eosinophils (%) (Auto) % (0.0-3.0) Basophils (%) (Auto) % (0.0-2.0) Differential Total Cells Counted 100 Neutrophils % (Manual) 69 % (45-75) Lymphocytes % (Manual) 18 % (20-45) L Monocytes % (Manual) 7 % (1-10) Eosinophils % (Manual) 4 % (0-3) H Basophils % (Manual) 2 % (0-2) Band Neutrophils 0 % (0-8) Platelet Estimate Decreased L Platelet Morphology Normal Hypochromasia 1+ Anisocytosis 1+ Sodium Level 143 MMOL/L (136-145) Potassium Level 4.8 MMOL/L (3.5-5.1) Chloride Level 105 MMOL/L (98-107) Carbon Dioxide Level 29 MMOL/L (21-32) Anion Gap 9 mmol/L (5-15) Blood Urea Nitrogen 20 mg/dL (7-18) H Creatinine 1.2 MG/DL (0.55-1.30) Estimat Glomerular Filtration Rate > 60 mL/min (>60) Glucose Level 97 MG/DL (74-106) Hemoglobin A1c 6.5 % (4.3-6.0) H Uric Acid 7.7 MG/DL (2.6-7.2) H Calcium Level 8.4 MG/DL (8.5-10.1) L Phosphorus Level 3.9 MG/DL (2.5-4.9) Magnesium Level 1.6 MG/DL (1.8-2.4) L Iron Level 24 ug/dL (50-175) L Total Iron Binding Capacity 358 ug/dL (250-450) Percent Iron Saturation 7 % (15-50) L Unsaturated Iron Binding 334 ug/dL (112-346) Ferritin 27 NG/ML (8-388) Total Bilirubin 0.4 MG/DL (0.2-1.0) Gamma Glutamyl Transpeptidase 55 U/L (5-85) Aspartate Amino Transf (AST/SGOT) 26 U/L (15-37) Alanine Aminotransferase (ALT/SGPT) 23 U/L (12-78) Alkaline Phosphatase 75 U/L (46-116) C-Reactive Protein, Quantitative 1.6 mg/dL (0.00-0.90) H Pro-B-Type Natriuretic Peptide 3370 pg/mL (0-125) H Total Protein 6.6 G/DL (6.4-8.2) Albumin 2.9 G/DL (3.4-5.0) L Globulin 3.7 g/dL Albumin/Globulin Ratio 0.8 (1.0-2.7) L Triglycerides Level 21 MG/DL (30-150) L Cholesterol Level 154 MG/DL (< 200) LDL Cholesterol 88 mg/dL (<100) HDL Cholesterol 57 MG/DL (40-60) Cholesterol/HDL Ratio 2.7 (3.3-4.4) L Vitamin B12 Level 815 PG/ML (193-986) Folate 12.7 NG/ML (8.6-58.9) Thyroid Stimulating Hormone (TSH) 1.604 uiU/mL (0.358-3.740) Objective HEENT: Atraumatic and normocephalic. Anicteric. Pupils are equal, round, and reactive to light and accommodation. Extraocular muscles are intact. NECK: JVP elevated at about 10 to 12 cm. No carotid bruits. Carotid upstrokes 2+ bilaterally. CARDIOVASCULAR: Normal S1 and S2. Regular rate and rhythm. Positive S3. A 2/6 holosystolic murmur at xiphoid area. LUNGS: Bibasilar crackles. ABDOMEN: Soft, nontender, and nondistended. No hepatosplenomegaly. Positive bowel sounds. EXTREMITIES: There is 1+ bilateral lower extremity edema. Spenser Fitzpatrick MD Aug 16, 2019 22:55
[2019-08-17] MEDS: HydrALAZINE 10mg Tab ORAL SCH ×3 (06:00→21:55)
--- NOTE | 2019-08-17 06:24 | Hematology/Onc Progress Note ---
Assessment/Plan Assessment/Plan Assessment and Recs: # Thrombocytopenia - potential causes multifactorial, evaluate liver and viral etiologies to begin, also could be related to underlying medications patient has received. HIV is neg --> Hep panel and HIV ordered (hiv neg) --> US abd to evaluate for cirrhosis and hsm ordered --> ++ SPLENOMEGALY IS NOTED --> Peripheral smear ordered to evaluate for blasts /schistocytes --> none noted --> abx and other meds have been reviewed --> ok for ppx if plt >50k w/ either heparin or lovenox --> Transfuse if Plt < 20k and fever, or if Plt < 10k without fever --> plt trend 93k-->92k # Anemia of iron deficiency, with a ferritin that was 29 --> Anemia workup has been ordered, rule out gi bleed --> No evidence of hemolysis is noted, peripheral smear has been reviewed. --> Hgb goal >7. Transfuse prn. --> IRON Venofer 100mg iv x5 days ordered --> if unable to tolerate iv then give po ferrous sulfate --> Medications have been reviewed --> hgb 10.4-->10.2-->9.8 # New onset dilated cardiomyopathy with severe LV systolic dysfunction and LVEF at 15%, drop of LVEF from 55% measured in 2015, require right and left heart cath to rule out CAD. --> patient is refusing this test now and do not wish to be transferred out. He realizes the risk of his actions which may include . Dr. Blair brineyard supervisor also notified. In the meantime we ll continue guideline recommended therapy for heart failure. --> as per cards recs # Severe pulmonary HTN due to left heart failure, continue diuretics. --> pulm consulted # MARGUERITE, probably cardiorenal syndrome. --> per renal # Acute combined systolic and diastolic CHF. # Small pericardial effusion likely element of right heart failure --> per cards care Appreciate consultation and eladio RN Subjective Constitutional: Denies: no symptoms, chills, fever, malaise, weakness, other HEENT: Denies: no symptoms, eye pain, blurred vision, tearing, double vision, ear pain, ear discharge, nose pain, nose congestion, throat pain, throat swelling, mouth pain, mouth swelling, other Cardiovascular: Denies: no symptoms, chest pain, edema, irregular heart rate, lightheadedness, palpitations, syncope, other Respiratory: Denies: no symptoms, cough, shortness of breath, SOB with excertion, SOB at rest, sputum, wheezing, other Gastrointestinal/Abdominal: Denies: no symptoms, abdomen distended, abdominal pain, black stools, tarry stools, blood in stool, constipated, diarrhea, difficulty swallowing, nausea, poor appetite, poor fluid intake, rectal bleeding , vomiting, other Genitourinary: Denies: no symptoms, burning, discharge, frequency, flank pain, hematuria, incontinence, pain, urgency, other Neurologic/Psychiatric: Denies: no symptoms, anxiety, depressed, emotional problems, headache, numbness, paresthesia, pre-existing deficit, seizure, tingling, tremors, weakness, other Endocrine: Denies: no symptoms, excessive sweating, flushing, intolerance to cold, intolerance to heat, increased hunger, increased thirst, increased urine, unexplained weight gain, unexplained weight loss, other Hematologic/Lymphatic: Denies: no symptoms, anemia, easy bleeding, easy bruising, adenopathy, other Allergies: Coded Allergies: SIMVASTATIN (Verified Allergy, Unknown, 07/03/19) Uncoded Allergies: STATINS (Allergy, Unknown, 08/13/19) Subjective 08/14 less cp, have ordered for iv iron, cbc and bmp are pending 08/15 no bleeding, labs noted, remains on iv iron, labs noted, ferritin low at 27 , no bleeding 08/16 no night sweats, short nsvt run, hgb remains low, cbc today pending, wants morphine Objective Objective Current Medications Medications (Trade) Dose Ordered Sig/Marybeth Route PRN Reason Start Time Stop Time Status Last Admin Dose Admin Acetaminophen (Tylenol) 650 mg Q4H PRN ORAL Mild Pain/Temp > 100.5 08/13/19 22:45 09/12/19 22:44 Amoxicillin/ Clavulanate Potassium (Augmentin) 875 mg EVERY 12 HOURS ORAL 08/13/19 22:45 08/20/19 22:44 08/16/19 20:54 Aspirin (ASA) 81 mg DAILY ORAL 08/14/19 09:00 09/28/19 08:59 08/16/19 09:00 Atorvastatin Calcium (Lipitor) 40 mg BEDTIME ORAL 08/14/19 21:00 11/12/19 20:59 08/16/19 20:56 Carvedilol (Coreg) 6.25 mg EVERY 12 HOURS ORAL 08/14/19 09:00 09/13/19 08:59 08/16/19 20:55 Digoxin (Lanoxin) 0.125 mg DAILY ORAL 08/14/19 09:00 11/12/19 08:59 08/16/19 09:01 Furosemide (Lasix) 40 mg DAILY IV 08/14/19 12:15 09/13/19 12:14 08/16/19 09:01 Hydralazine HCl (Apresoline) 10 mg Q8HR ORAL 08/14/19 06:00 11/12/19 05:59 08/16/19 20:57 Iron Sucrose 100 mg/Sodium Chloride 60 ml @ 240 mls/hr BEDTIME IVPB 08/15/19 21:00 08/19/19 21:14 Lisinopril (ZestriL) 5 mg DAILY ORAL 08/14/19 09:00 09/13/19 08:59 08/16/19 09:00 Magnesium Oxide (Mag-Ox 400mg) 400 mg THREE TIMES A DAY ORAL 08/16/19 22:00 08/18/19 22:00 08/16/19 22:00 Pantoprazole (Protonix) 40 mg DAILY ORAL 08/16/19 09:00 09/13/19 06:29 08/16/19 09:00 Spironolactone (Aldactone) 25 mg DAILY ORAL 08/14/19 12:15 09/13/19 12:14 08/16/19 09:00 Tramadol HCl (Ultram) 50 mg Q6H PRN ORAL severe pain 08/15/19 16:45 08/22/19 16:44 08/16/19 20:56 Last 24 Hour Vital Signs Date Time Temp Pulse Resp B/P (MAP) Pulse Ox O2 Delivery O2 Flow Rate FiO2 08/16/19 21:56 97.0 08/16/19 21:00 Nasal Cannula 2.0 08/16/19 20:57 121/85 08/16/19 20:55 98 121/85 08/16/19 20:00 94 08/16/19 20:00 97.0 98 20 121/85 (97) 100 08/16/19 16:00 98.1 94 20 122/69 (86) 99 08/16/19 16:00 96 08/16/19 13:59 109/46 08/16/19 12:00 98.1 96 20 110/68 (82) 100 08/16/19 12:00 91 08/16/19 09:01 96 08/16/19 09:00 119/76 08/16/19 09:00 96 119/76 08/16/19 09:00 Nasal Cannula 2.0 08/16/19 08:00 97.9 96 20 119/76 (90) 96 08/16/19 08:00 97 08/16/19 05:34 100/66 08/16/19 04:00 96.6 90 18 100/66 (77) 99 08/16/19 04:00 96 08/16/19 00:00 97.4 94 18 110/63 (79) 98 08/16/19 00:00 97 08/15/19 21:23 94 107/70 08/15/19 21:00 Nasal Cannula 2.0 08/15/19 20:00 107 08/15/19 20:00 98.3 94 18 107/70 (82) 99 08/15/19 16:00 104 08/15/19 16:00 98.1 76 20 104/65 (78) 100 08/15/19 14:27 115/68 08/15/19 12:49 95 08/15/19 11:57 96.6 81 18 109/71 (84) 97 08/15/19 09:56 Nasal Cannula 2.0 08/15/19 09:11 95 08/15/19 09:01 118/71 08/15/19 09:01 74 118/71 08/15/19 09:00 74 08/15/19 08:00 96.7 74 19 118/71 (87) 98 Intake and Output 08/16/19 08/17/19 19:00 07:00 Intake Total 800 ml 354 ml Balance 800 ml 354 ml Intake Oral 800 ml 354 ml # Voids 5 1 Labs Test 08/15/19 19:05 08/16/19 05:59 Sodium Level 141 MMOL/L (136-145) 143 MMOL/L (136-145) Potassium Level 4.6 MMOL/L (3.5-5.1) 4.8 MMOL/L (3.5-5.1) Chloride Level 102 MMOL/L (98-107) 105 MMOL/L (98-107) Carbon Dioxide Level 35 MMOL/L (21-32) 29 MMOL/L (21-32) Anion Gap 4 mmol/L (5-15) 9 mmol/L (5-15) Blood Urea Nitrogen 24 mg/dL (7-18) 20 mg/dL (7-18) Creatinine 1.2 MG/DL (0.55-1.30) 1.2 MG/DL (0.55-1.30) Estimat Glomerular Filtration Rate > 60 mL/min (>60) > 60 mL/min (>60) Glucose Level 115 MG/DL (74-106) 97 MG/DL (74-106) Calcium Level 8.4 MG/DL (8.5-10.1) 8.4 MG/DL (8.5-10.1) Magnesium Level 1.7 MG/DL (1.8-2.4) 1.6 MG/DL (1.8-2.4) White Blood Count 5.2 K/UL (4.8-10.8) Red Blood Count 3.22 M/UL (4.70-6.10) Hemoglobin 9.9 G/DL (14.2-18.0) Hematocrit 30.9 % (42.0-52.0) Mean Corpuscular Volume 96 FL (80-99) Mean Corpuscular Hemoglobin 30.7 PG (27.0-31.0) Mean Corpuscular Hemoglobin Concent 31.9 G/DL (32.0-36.0) Red Cell Distribution Width 16.2 % (11.6-14.8) Platelet Count 95 K/UL (150-450) Mean Platelet Volume 7.4 FL (6.5-10.1) Neutrophils (%) (Auto) % (45.0-75.0) Lymphocytes (%) (Auto) % (20.0-45.0) Monocytes (%) (Auto) % (1.0-10.0) Eosinophils (%) (Auto) % (0.0-3.0) Basophils (%) (Auto) % (0.0-2.0) Differential Total Cells Counted 100 Neutrophils % (Manual) 69 % (45-75) Lymphocytes % (Manual) 18 % (20-45) Monocytes % (Manual) 7 % (1-10) Eosinophils % (Manual) 4 % (0-3) Basophils % (Manual) 2 % (0-2) Band Neutrophils 0 % (0-8) Platelet Estimate Decreased Platelet Morphology Normal Hypochromasia 1+ Anisocytosis 1+ Hemoglobin A1c 6.5 % (4.3-6.0) Uric Acid 7.7 MG/DL (2.6-7.2) Phosphorus Level 3.9 MG/DL (2.5-4.9) Iron Level 24 ug/dL (50-175) Total Iron Binding Capacity 358 ug/dL (250-450) Percent Iron Saturation 7 % (15-50) Unsaturated Iron Binding 334 ug/dL (112-346) Ferritin 27 NG/ML (8-388) Total Bilirubin 0.4 MG/DL (0.2-1.0) Gamma Glutamyl Transpeptidase 55 U/L (5-85) Aspartate Amino Transf (AST/SGOT) 26 U/L (15-37) Alanine Aminotransferase (ALT/SGPT) 23 U/L (12-78) Alkaline Phosphatase 75 U/L (46-116) C-Reactive Protein, Quantitative 1.6 mg/dL (0.00-0.90) Pro-B-Type Natriuretic Peptide 3370 pg/mL (0-125) Total Protein 6.6 G/DL (6.4-8.2) Albumin 2.9 G/DL (3.4-5.0) Globulin 3.7 g/dL Albumin/Globulin Ratio 0.8 (1.0-2.7) Triglycerides Level 21 MG/DL (30-150) Cholesterol Level 154 MG/DL (< 200) LDL Cholesterol 88 mg/dL (<100) HDL Cholesterol 57 MG/DL (40-60) Cholesterol/HDL Ratio 2.7 (3.3-4.4) Vitamin B12 Level 815 PG/ML (193-986) Folate 12.7 NG/ML (8.6-58.9) Thyroid Stimulating Hormone (TSH) 1.604 uiU/mL (0.358-3.740) Height (Feet): 5 Height (Inches): 9.00 Weight (Pounds): 200 Objective Vitals: reviewed General: NAD Neck: supple Chest: clear breath sounds bilaterally noted crackles+++ Cardiovascular: RRR, no s3, s4 Abdomen: soft, nontender, nd Extremities: n1+ edema, normal range of motion Mental: alert Labs: noted Mihai Jean MD Aug 17, 2019 06:24
--- NOTE | 2019-08-17 06:59 | NUR ---
NURSE NOTES: Patient refused IV Iron. Informed Dr. Jean. ordered Ferrous Sulfate 325 TID instead until discharge. Documented in chart from 2200 to 0630 because [facility] was down.
[2019-08-17 07:05] LABS: BASOPHILS % (AUTO) 1.8 % (0.0-2.0); EOSINOPHILS % (AUTO) 3.2 % (0.0-3.0); HEMATOCRIT 37.4 % (42.0-52.0); HEMOGLOBIN 11.5 G/DL (14.2-18.0); LYMPHOCYTES % (AUTO) 14.8 % (20.0-45.0); MEAN CORPUSCULAR VOLUME 98 FL (80-99); MONOCYTES % (AUTO) 12.5 % (1.0-10.0); NEUTROPHILS % (AUTO) 67.7 % (45.0-75.0); PLATELET COUNT 104 K/UL (150-450); RED CELL DISTRIBUTION WIDTH 15.8 % (11.6-14.8)
[2019-08-17 07:22] LABS: ANION GAP 6 mmol/L (5-15); BLOOD UREA NITROGEN 21 mg/dL (7-18); CALCIUM 8.9 MG/DL (8.5-10.1); CARBON DIOXIDE 33 MMOL/L (21-32); CHLORIDE 99 MMOL/L (98-107); CREATININE 1.3 MG/DL (0.55-1.30); POTASSIUM 4.2 MMOL/L (3.5-5.1); SODIUM 138 MMOL/L (136-145)
--- NOTE | 2019-08-17 07:30 | NUR ---
NURSE NOTES: RECEIVED REPORT FROM GENTRY ALEXANDER. PATIENT AWAKE IN BED, ABLE TO MAKE NEEDS KNOWN. NO COMPLAINTS OF PAIN OR DISCOMFORT AT THIS TIME. BREATHING IS EVEN AND UNLABORED ON ROOM AIR, NO S/SX OF DISTRESS. BED LOCKED AND IN LOWEST POSITION. CALL LIGHT WITHIN REACH. WILL CONTINUE TO MONITOR. Addendum: 08/17/19 at 0955 by Luciana Rick RN ON 2L VIA NC
[2019-08-17 08:00] VITALS: BP 125/79
--- NOTE | 2019-08-17 08:03 | NUR ---
HAND-OFF: Report given to GENTRY Winston. Pt stable.
[2019-08-17] MEDS: Carvedilol 6.25mg Tab ORAL SCH ×2 (08:34→21:56)
[2019-08-17] MEDS: Digoxin 0.125mg tab ORAL SCH (08:34)
[2019-08-17] MEDS: Aspirin Baby 81mg ORAL SCH (08:35)
[2019-08-17] MEDS: Spironolactone 25mg tab ORAL SCH (08:35)
[2019-08-17] MEDS: Augmentin 875mg Tab ORAL SCH ×2 (08:35→20:32)
[2019-08-17] MEDS: Magnesium Oxide 400mg tab ORAL SCH ×3 (08:35→17:24)
[2019-08-17] MEDS: Lisinopril 2.5mg tab ORAL SCH (08:35)
--- NOTE | 2019-08-17 09:47 | NUR ---
CASE MANAGEMENT:REVIEW 08/17/19 SI: AC/CHR CHF. PERICARDIAL EFFUSION MYOCARDIAL NECROSIS 97.0 96 20 121/85 100% ON 2L/NC IS: IV VENOFER QHS LIPITOR PO QHS ALDACTONE PO QD IV LASIX QD COREG PO Q12 LISINOPRIL PO QD ASA PO QD DIGOXIN PO QD HYDRALAZINE PO Q8HRS AUGMENTIN PO Q12 : TELEMETRY STATUS DCP: FROM HOME PLAN: PATIENT HAS AGREED TO LEFT HEART CATH ONCE COVID-19 PANDEMIC IS OVER DISCHARGE HOME TODAY WITH "[facility]"
--- NOTE | 2019-08-17 10:17 | Pulmonology Progress Note ---
Assessment/Plan Assessment/Plan IMPRESSION: 1. CHF. 2. Chest pain. 3. Troponin leak. DISCUSSION: I will continue oxygen and pulmonary hygiene. Continue home medications. okay to discharge I will follow as electronic induction hardener. Subjective Interval Events: none new reported Constitutional: Reports: no symptoms HEENT: Repors: no symptoms Respiratory: Reports: no symptoms Cardiovascular: Reports: no symptoms Gastrointestinal/Abdominal: Reports: no symptoms Genitourinary: Reports: no symptoms Allergies: Coded Allergies: SIMVASTATIN (Verified Allergy, Unknown, 07/03/19) Uncoded Allergies: STATINS (Allergy, Unknown, 08/13/19) Objective Last 24 Hour Vital Signs Date Time Temp Pulse Resp B/P (MAP) Pulse Ox O2 Delivery O2 Flow Rate FiO2 08/17/19 08:35 125/79 08/17/19 08:34 96 08/17/19 08:34 96 125/79 08/17/19 06:00 109/75 08/16/19 21:56 97.0 08/16/19 21:00 Nasal Cannula 2.0 08/16/19 20:57 121/85 08/16/19 20:55 98 121/85 08/16/19 20:00 94 08/16/19 20:00 97.0 98 20 121/85 (97) 100 08/16/19 16:00 98.1 94 20 122/69 (86) 99 08/16/19 16:00 96 08/16/19 13:59 109/46 08/16/19 12:00 98.1 96 20 110/68 (82) 100 08/16/19 12:00 91 Intake and Output 08/16/19 08/17/19 19:00 07:00 Intake Total 800 ml 354 ml Balance 800 ml 354 ml Intake Oral 800 ml 354 ml # Voids 5 1 General Appearance: no acute distress HEENT: normocephalic Respiratory/Chest: chest wall non-tender Cardiovascular: normal peripheral pulses Abdomen: normal bowel sounds Laboratory Tests 08/17/19 05:48: White Blood Count 5.0, Red Blood Count 3.80L, Hemoglobin 11.5L, Hematocrit 37.4L , Mean Corpuscular Volume 98, Mean Corpuscular Hemoglobin 30.2, Mean Corpuscular Hemoglobin Concent 30.7L, Red Cell Distribution Width 15.8H, Platelet Count 104L, Mean Platelet Volume 7.8, Neutrophils (%) (Auto) 67.7, Lymphocytes (%) (Auto) 14.8L, Monocytes (%) (Auto) 12.5H, Eosinophils (%) (Auto ) 3.2H, Basophils (%) (Auto) 1.8, Sodium Level 138, Potassium Level 4.2, Chloride Level 99, Carbon Dioxide Level 33H, Anion Gap 6, Blood Urea Nitrogen 21H, Creatinine 1.3, Estimat Glomerular Filtration Rate > 60, Glucose Level 123H , Calcium Level 8.9 Current Medications Medications (Trade) Dose Ordered Sig/Marybeth Route PRN Reason Start Time Stop Time Status Last Admin Dose Admin Acetaminophen (Tylenol) 650 mg Q4H PRN ORAL Mild Pain/Temp > 100.5 08/13/19 22:45 09/12/19 22:44 Amoxicillin/ Clavulanate Potassium (Augmentin) 875 mg EVERY 12 HOURS ORAL 08/13/19 22:45 08/20/19 22:44 08/17/19 08:35 Aspirin (ASA) 81 mg DAILY ORAL 08/14/19 09:00 09/28/19 08:59 08/17/19 08:35 Atorvastatin Calcium (Lipitor) 40 mg BEDTIME ORAL 08/14/19 21:00 11/12/19 20:59 08/16/19 20:56 Carvedilol (Coreg) 6.25 mg EVERY 12 HOURS ORAL 08/14/19 09:00 09/13/19 08:59 08/17/19 08:34 Digoxin (Lanoxin) 0.125 mg DAILY ORAL 08/14/19 09:00 11/12/19 08:59 08/17/19 08:34 Ferrous Sulfate (Feosol) 325 mg THREE TIMES A DAY ORAL 08/17/19 09:00 11/15/19 08:59 08/17/19 09:36 Furosemide (Lasix) 40 mg DAILY IV 08/14/19 12:15 09/13/19 12:14 08/16/19 09:01 Hydralazine HCl (Apresoline) 10 mg Q8HR ORAL 08/14/19 06:00 11/12/19 05:59 08/17/19 06:00 Lisinopril (ZestriL) 5 mg DAILY ORAL 08/14/19 09:00 09/13/19 08:59 08/17/19 08:35 Magnesium Oxide (Mag-Ox 400mg) 400 mg THREE TIMES A DAY ORAL 08/16/19 22:00 08/18/19 22:00 08/17/19 08:35 Pantoprazole (Protonix) 40 mg DAILY ORAL 08/16/19 09:00 09/13/19 06:29 08/17/19 08:35 Spironolactone (Aldactone) 25 mg DAILY ORAL 08/14/19 12:15 09/13/19 12:14 08/17/19 08:35 Tramadol HCl (Ultram) 50 mg Q6H PRN ORAL severe pain 08/15/19 16:45 08/22/19 16:44 08/16/19 20:56 Frank Baca MD Aug 17, 2019 10:17
--- NOTE | 2019-08-17 10:21 | NUR ---
RD ASSESSMENT & RECOMMENDATIONS SEE CARE ACTIVITY FOR COMPLETE ASSESSMENT DAILY ESTIMATED NEEDS: Needs based on Pulmonary, cardiac 70.7kg abw 25-30 kcals/kg 9727-0265 total kcals 1-1.5 g protein/kg 71-106 g total protein Fluid per MD mL/kg 1.5L/ day total fluid mLs NUTRITION DIAGNOSIS: Decrease sodium and fat needs r/t clinical status, cardiac history and elevated BMI as evidenced by pt w/ CHF, elev BNP, on lasix, BMI >30 obese per guidelines. PO DIET RECOMMENDATIONS: maintain Cardiac diet ADDITIONAL RECOMMENDATIONS: 1) Check lytes daily on lasix, replete as needed (Mg 1.6) 2) Obtain a daily standing weight 3) 1.5L fluid per MD 4) A1C 6.5, monitor need for hypoglycemics and/ or carb control diet
--- NOTE | 2019-08-17 10:26 | NUR ---
*-*INSURANCE*-* ALL CLINICALS AND REVIEWS FAXED TO: [employer] P: [phone] F: [phone] & [employer] ([employer]ESSION[employer]) P: [phone] F: [phone]
--- NOTE | 2019-08-17 10:26 | General Progress Note ---
Assessment/Plan Assessment/Plan: (1) CHF (2) Chest pain (3) Peripheral neuropathy Patient will be continued on Tramadol. D/w Dr. Renteria and he concurred. Subjective Date patient seen: Aug 17, 2019 Time patient seen: 10:15 - am Constitutional: Reports: no symptoms HEENT: Reports: no symptoms Cardiovascular: Reports: no symptoms Respiratory: Reports: shortness of breath Gastrointestinal/Abdominal: Reports: no symptoms Genitourinary: Reports: no symptoms Neurologic/Psychiatric: Reports: no symptoms Endocrine: Reports: no symptoms Hematologic/Lymphatic: Reports: no symptoms Allergies: Coded Allergies: SIMVASTATIN (Verified Allergy, Unknown, 07/03/19) Uncoded Allergies: STATINS (Allergy, Unknown, 08/13/19) Subjective Patient showing no signs of pain or distress. Reports pain has been stable on the Tramadol using it as needed. Objective Last 24 Hour Vital Signs Date Time Temp Pulse Resp B/P (MAP) Pulse Ox O2 Delivery O2 Flow Rate FiO2 08/17/19 08:35 125/79 08/17/19 08:34 96 08/17/19 08:34 96 125/79 08/17/19 06:00 109/75 08/16/19 21:56 97.0 08/16/19 21:00 Nasal Cannula 2.0 08/16/19 20:57 121/85 08/16/19 20:55 98 121/85 08/16/19 20:00 94 08/16/19 20:00 97.0 98 20 121/85 (97) 100 08/16/19 16:00 98.1 94 20 122/69 (86) 99 08/16/19 16:00 96 08/16/19 13:59 109/46 08/16/19 12:00 98.1 96 20 110/68 (82) 100 08/16/19 12:00 91 Intake and Output 08/16/19 08/17/19 19:00 07:00 Intake Total 800 ml 354 ml Balance 800 ml 354 ml Intake Oral 800 ml 354 ml # Voids 5 1 Laboratory Tests 08/17/19 05:48: White Blood Count 5.0, Red Blood Count 3.80L, Hemoglobin 11.5L, Hematocrit 37.4L , Mean Corpuscular Volume 98, Mean Corpuscular Hemoglobin 30.2, Mean Corpuscular Hemoglobin Concent 30.7L, Red Cell Distribution Width 15.8H, Platelet Count 104L, Mean Platelet Volume 7.8, Neutrophils (%) (Auto) 67.7, Lymphocytes (%) (Auto) 14.8L, Monocytes (%) (Auto) 12.5H, Eosinophils (%) (Auto ) 3.2H, Basophils (%) (Auto) 1.8, Sodium Level 138, Potassium Level 4.2, Chloride Level 99, Carbon Dioxide Level 33H, Anion Gap 6, Blood Urea Nitrogen 21H, Creatinine 1.3, Estimat Glomerular Filtration Rate > 60, Glucose Level 123H , Calcium Level 8.9 Height (Feet): 5 Height (Inches): 9.00 Weight (Pounds): 200 General Appearance: no apparent distress, alert EENT: PERRL/EOMI, normal ENT inspection Neck: non-tender, normal alignment Cardiovascular: normal rate, regular rhythm Respiratory/Chest: decreased breath sounds Abdomen: non tender, soft Extremities: non-tender Edema: trace edema Neurologic: alert, oriented x 3 Skin: warm/dry Tremayne Fenton Aug 17, 2019 10:26
--- NOTE | 2019-08-17 10:27 | NUR ---
*-*DISCHARGE PLANNED*-* PATIENT HAS BEEN ACCEPTED WITH [facility] P:[phone]. SPOKE WITH MARGOT WHO STATED THEY WILL SERVICE PATIENT UPON DISCHARGE.
--- NOTE | 2019-08-17 10:49 | Infectious Diseases Prog Note ---
Assessment/Plan Assessment/Plan IMPRESSION: Stasis dermatitis, may have mild nonpurulent cellulitis. Congestive heart failure and cardiomyopathy with EF=15% Anemia, Thrombocytopenia, Pulmonary hypertension, COPD. Elevated troponin RECOMMENDATION: Continue Augmentin in hospital Agree with discharge without antibiotic Subjective ROS Limited/Unobtainable: No Constitutional: Reports: no symptoms Respiratory: Reports: no symptoms Cardiovascular: Reports: dyspnea on exertion, other - left side cheat pain Gastrointestinal/Abdominal: Reports: no symptoms Genitourinary: Reports: no symptoms Musculoskeletal: Reports: pain, other - in legs Allergies: Coded Allergies: SIMVASTATIN (Verified Allergy, Unknown, 07/03/19) Uncoded Allergies: STATINS (Allergy, Unknown, 08/13/19) Objective Vital Signs Last 24 Hour Vital Signs Date Time Temp Pulse Resp B/P (MAP) Pulse Ox O2 Delivery O2 Flow Rate FiO2 08/17/19 09:00 Nasal Cannula 2.0 08/17/19 08:35 125/79 08/17/19 08:34 96 08/17/19 08:34 96 125/79 08/17/19 08:00 92 08/17/19 08:00 97.4 96 20 125/79 (94) 99 08/17/19 06:00 109/75 08/16/19 21:56 97.0 08/16/19 21:00 Nasal Cannula 2.0 08/16/19 20:57 121/85 08/16/19 20:55 98 121/85 08/16/19 20:00 94 08/16/19 20:00 97.0 98 20 121/85 (97) 100 08/16/19 16:00 98.1 94 20 122/69 (86) 99 08/16/19 16:00 96 08/16/19 13:59 109/46 08/16/19 12:00 98.1 96 20 110/68 (82) 100 08/16/19 12:00 91 Height (Feet): 5 Height (Inches): 9.00 Weight (Pounds): 200 General Appearance: no acute distress HEENT: mucous membranes moist Respiratory/Chest: lungs clear Cardiovascular: normal rate Abdomen: soft, non tender Extremities: other - edema of legs Skin: other - stasis dematitis of legs Neurologic/Psychiatric: alert, oriented x 3, responsive Laboratory Tests Test 08/17/19 05:48 White Blood Count 5.0 K/UL (4.8-10.8) Red Blood Count 3.80 M/UL (4.70-6.10) L Hemoglobin 11.5 G/DL (14.2-18.0) L Hematocrit 37.4 % (42.0-52.0) L Mean Corpuscular Volume 98 FL (80-99) Mean Corpuscular Hemoglobin 30.2 PG (27.0-31.0) Mean Corpuscular Hemoglobin Concent 30.7 G/DL (32.0-36.0) L Red Cell Distribution Width 15.8 % (11.6-14.8) H Platelet Count 104 K/UL (150-450) L Mean Platelet Volume 7.8 FL (6.5-10.1) Neutrophils (%) (Auto) 67.7 % (45.0-75.0) Lymphocytes (%) (Auto) 14.8 % (20.0-45.0) L Monocytes (%) (Auto) 12.5 % (1.0-10.0) H Eosinophils (%) (Auto) 3.2 % (0.0-3.0) H Basophils (%) (Auto) 1.8 % (0.0-2.0) Sodium Level 138 MMOL/L (136-145) Potassium Level 4.2 MMOL/L (3.5-5.1) Chloride Level 99 MMOL/L (98-107) Carbon Dioxide Level 33 MMOL/L (21-32) H Anion Gap 6 mmol/L (5-15) Blood Urea Nitrogen 21 mg/dL (7-18) H Creatinine 1.3 MG/DL (0.55-1.30) Estimat Glomerular Filtration Rate > 60 mL/min (>60) Glucose Level 123 MG/DL (74-106) H Calcium Level 8.9 MG/DL (8.5-10.1) Current Medications Medications (Trade) Dose Ordered Sig/Marybeth Route PRN Reason Start Time Stop Time Status Last Admin Dose Admin Acetaminophen (Tylenol) 650 mg Q4H PRN ORAL Mild Pain/Temp > 100.5 08/13/19 22:45 09/12/19 22:44 Amoxicillin/ Clavulanate Potassium (Augmentin) 875 mg EVERY 12 HOURS ORAL 08/13/19 22:45 08/20/19 22:44 08/17/19 08:35 Aspirin (ASA) 81 mg DAILY ORAL 08/14/19 09:00 09/28/19 08:59 08/17/19 08:35 Atorvastatin Calcium (Lipitor) 40 mg BEDTIME ORAL 08/14/19 21:00 11/12/19 20:59 08/16/19 20:56 Carvedilol (Coreg) 6.25 mg EVERY 12 HOURS ORAL 08/14/19 09:00 09/13/19 08:59 08/17/19 08:34 Digoxin (Lanoxin) 0.125 mg DAILY ORAL 08/14/19 09:00 11/12/19 08:59 08/17/19 08:34 Ferrous Sulfate (Feosol) 325 mg THREE TIMES A DAY ORAL 08/17/19 09:00 11/15/19 08:59 08/17/19 09:36 Furosemide (Lasix) 40 mg DAILY IV 08/14/19 12:15 09/13/19 12:14 08/16/19 09:01 Hydralazine HCl (Apresoline) 10 mg Q8HR ORAL 08/14/19 06:00 11/12/19 05:59 08/17/19 06:00 Lisinopril (ZestriL) 5 mg DAILY ORAL 08/14/19 09:00 09/13/19 08:59 08/17/19 08:35 Magnesium Oxide (Mag-Ox 400mg) 400 mg THREE TIMES A DAY ORAL 08/16/19 22:00 08/18/19 22:00 08/17/19 08:35 Pantoprazole (Protonix) 40 mg DAILY ORAL 08/16/19 09:00 09/13/19 06:29 08/17/19 08:35 Spironolactone (Aldactone) 25 mg DAILY ORAL 08/14/19 12:15 09/13/19 12:14 08/17/19 08:35 Tramadol HCl (Ultram) 50 mg Q6H PRN ORAL severe pain 08/15/19 16:45 08/22/19 16:44 08/16/19 20:56 Carmelo Canada MD Aug 17, 2019 10:49
--- NOTE | 2019-08-17 11:17 | NUR ---
NURSE NOTES: CALLED DR. BAILEY TO GET CLEARANCE FOR PATIENT TO BE DISCHARGED. S/W DEUCE WHO STATES SHE WILL RELAY MESSAGE TO DR. BAILEY. AWAITING CALL BACK.
[2019-08-17 12:00] VITALS: BP 118/75
--- NOTE | 2019-08-17 13:52 | NUR ---
DISCHARGE PLANNING PATIENT HAS A DISCHARGE ORDER FOR HOME PHOTO CHECKER AND ASSEMBLER CALLED DIRECTOR OF ADMITTING,RAMONITA, WHO CONFIRMED PATIENT HAS EXHAUSTED HIS MEDICARE PART A. WITHOUT MCR PART A PATIENT CANNOT APPEAL HIS DISCHARGE PATIENT IS CURRENTLY HERE UNDER [facility] PLAN...DISCHARGE HOME TODAY
--- NOTE | 2019-08-17 14:45 | NUR ---
NURSE NOTES: PATIENT PROVIDED DISCHARGE PAPERWORK, ALTHOUGH HE REFUSED TO SIGN ALL PAPERWORK, IV SITE D/C. PER PATIENT, HE HAS APPEALED DISCHARGE.
--- NOTE | 2019-08-17 15:09 | NUR ---
*-* MEDICARE APPEAL *-* PATIENT HAS APPEALED HIS DISCHARGE WITH [facility] CASE [id number] Addendum: 08/17/19 at 1544 by TOPHER MILES CM ALL MEDICAL RECORDS HAVE BEEN FAXED REQUESTED BY [facility]. [facility] F: [phone]
[2019-08-17 16:00] VITALS: BP 120/77
[2019-08-17] MEDS ORDERED: traMADol 50mg tab ORAL PRN (19:04)
--- NOTE | 2019-08-17 19:32 | NUR ---
HAND-OFF: Report given to Presley RINALDI. Patient stable. Plan of care endorsed. All belongings with patient including two phones. No IV at this time. RN aware.
--- NOTE | 2019-08-17 19:40 | NUR ---
NURSE NOTES: Pt. received from GENTRY Elizabeth. Pt. AAOx4, on room air, no complaints of pain, breathing is even and unlabored. No IV site, will attempt insertion. Pt. oriented to room and unit, belongings verified. Bed is low and locked, side rails x2 up, bed alarm active, and call light is in reach. Will continue to monitor.
[2019-08-17 20:00] VITALS: BP 138/70
[2019-08-17] MEDS: Atorvastatin 20mg tab ORAL SCH (20:34)
--- NOTE | 2019-08-17 21:48 | General Progress Note ---
Assessment/Plan Problem List: (1) HTN (hypertension) ICD Codes: I10 - HTN (hypertension) SNOMED: 22962892 (2) Pneumonia ICD Codes: J18.9 - Pneumonia SNOMED: 011167153 (3) SOB (shortness of breath) ICD Codes: R06.02 - Shortness of breath SNOMED: 933054505 (4) ACS (acute coronary syndrome) ICD Codes: I24.9 - Acute ischemic heart disease, unspecified SNOMED: 189839723 (5) CHF (congestive heart failure) ICD Codes: I50.9 - Heart failure, unspecified SNOMED: 72362987 (6) Anemia ICD Codes: D64.9 - Anemia, unspecified SNOMED: 795210434 (7) Cardiomyopathy ICD Codes: I42.9 - Cardiomyopathy, unspecified SNOMED: 26362951 Status: progressing Assessment/Plan: still c/o sob cleared by all consultants for dc however refused to be dc and appealed the dc order needs outpatient management of chf chf exacerbation is improved and needs outpatient treatment for chf arrythmia leg edema improved Subjective ROS Limited/Unobtainable: Yes Allergies: Coded Allergies: SIMVASTATIN (Verified Allergy, Unknown, 07/03/19) Uncoded Allergies: STATINS (Allergy, Unknown, 08/13/19) Objective Last 24 Hour Vital Signs Date Time Temp Pulse Resp B/P (MAP) Pulse Ox O2 Delivery O2 Flow Rate FiO2 08/17/19 16:00 98.0 90 20 120/77 (91) 94 08/17/19 13:42 118/75 08/17/19 12:00 89 08/17/19 12:00 97.7 93 19 118/75 (89) 91 08/17/19 09:00 Nasal Cannula 2.0 08/17/19 08:35 125/79 08/17/19 08:34 96 08/17/19 08:34 96 125/79 08/17/19 08:00 92 08/17/19 08:00 97.4 96 20 125/79 (94) 99 08/17/19 06:00 109/75 08/16/19 21:56 97.0 Intake and Output 08/16/19 08/17/19 19:00 07:00 Intake Total 800 ml 354 ml Balance 800 ml 354 ml Intake Oral 800 ml 354 ml # Voids 5 1 Laboratory Tests 08/17/19 05:48: White Blood Count 5.0, Red Blood Count 3.80L, Hemoglobin 11.5L, Hematocrit 37.4L , Mean Corpuscular Volume 98, Mean Corpuscular Hemoglobin 30.2, Mean Corpuscular Hemoglobin Concent 30.7L, Red Cell Distribution Width 15.8H, Platelet Count 104L, Mean Platelet Volume 7.8, Neutrophils (%) (Auto) 67.7, Lymphocytes (%) (Auto) 14.8L, Monocytes (%) (Auto) 12.5H, Eosinophils (%) (Auto ) 3.2H, Basophils (%) (Auto) 1.8, Sodium Level 138, Potassium Level 4.2, Chloride Level 99, Carbon Dioxide Level 33H, Anion Gap 6, Blood Urea Nitrogen 21H, Creatinine 1.3, Estimat Glomerular Filtration Rate > 60, Glucose Level 123H , Calcium Level 8.9 Height (Feet): 5 Height (Inches): 9.00 Weight (Pounds): 200 Felisa Blair MD Aug 17, 2019 21:48
--- NOTE | 2019-08-17 22:56 | Cardiology Progress Note ---
Assessment/Plan Assessment/Plan 1. Slight elevation of troponin I level due to myocardial necrosis, the patient agreed to right and left heart cath once COVID-19 outbreak is over. 2. Acute on chronic combined systolic and diastolic congestive heart failure, continue the current therapy. 3. History of hypertension. 4. Moderate pulmonary hypertension due to left heart failure. 5. Small pericardial effusion, likely due to element of right heart failure. 6. History of chronic kidney disease with MARGUERITE, DC IV lasix, switch to po lasix. 7. Non-sustained ventricular tachycardia, Mg oxide given. Mg level in am. Subjective Subjective Sinus rhythm at rate of 92. Mg oxide given as the patient refused Mg sulfate IVPB. Objective Last 24 Hour Vital Signs Date Time Temp Pulse Resp B/P (MAP) Pulse Ox O2 Delivery O2 Flow Rate FiO2 08/17/19 21:56 92 138/70 08/17/19 21:55 138/70 08/17/19 16:00 98.0 90 20 120/77 (91) 94 08/17/19 13:42 118/75 08/17/19 12:00 89 08/17/19 12:00 97.7 93 19 118/75 (89) 91 08/17/19 09:00 Nasal Cannula 2.0 08/17/19 08:35 125/79 08/17/19 08:34 96 08/17/19 08:34 96 125/79 08/17/19 08:00 92 08/17/19 08:00 97.4 96 20 125/79 (94) 99 08/17/19 06:00 109/75 Intake and Output 08/16/19 08/17/19 19:00 07:00 Intake Total 800 ml 354 ml Balance 800 ml 354 ml Intake Oral 800 ml 354 ml # Voids 5 1 2D Echo: DCM, LVEF 15%, Restricitve LV physio, Gloabl LV HK, RAP 15, RVSP 53, Mod MR Laboratory Tests Test 08/17/19 05:48 White Blood Count 5.0 K/UL (4.8-10.8) Red Blood Count 3.80 M/UL (4.70-6.10) L Hemoglobin 11.5 G/DL (14.2-18.0) L Hematocrit 37.4 % (42.0-52.0) L Mean Corpuscular Volume 98 FL (80-99) Mean Corpuscular Hemoglobin 30.2 PG (27.0-31.0) Mean Corpuscular Hemoglobin Concent 30.7 G/DL (32.0-36.0) L Red Cell Distribution Width 15.8 % (11.6-14.8) H Platelet Count 104 K/UL (150-450) L Mean Platelet Volume 7.8 FL (6.5-10.1) Neutrophils (%) (Auto) 67.7 % (45.0-75.0) Lymphocytes (%) (Auto) 14.8 % (20.0-45.0) L Monocytes (%) (Auto) 12.5 % (1.0-10.0) H Eosinophils (%) (Auto) 3.2 % (0.0-3.0) H Basophils (%) (Auto) 1.8 % (0.0-2.0) Sodium Level 138 MMOL/L (136-145) Potassium Level 4.2 MMOL/L (3.5-5.1) Chloride Level 99 MMOL/L (98-107) Carbon Dioxide Level 33 MMOL/L (21-32) H Anion Gap 6 mmol/L (5-15) Blood Urea Nitrogen 21 mg/dL (7-18) H Creatinine 1.3 MG/DL (0.55-1.30) Estimat Glomerular Filtration Rate > 60 mL/min (>60) Glucose Level 123 MG/DL (74-106) H Calcium Level 8.9 MG/DL (8.5-10.1) Objective HEENT: Atraumatic and normocephalic. Anicteric. Pupils are equal, round, and reactive to light and accommodation. Extraocular muscles are intact. NECK: JVP elevated at about 10 to 12 cm. No carotid bruits. Carotid upstrokes 2+ bilaterally. CARDIOVASCULAR: Normal S1 and S2. Regular rate and rhythm. Positive S3. A 2/6 holosystolic murmur at xiphoid area. LUNGS: Bibasilar crackles. ABDOMEN: Soft, nontender, and nondistended. No hepatosplenomegaly. Positive bowel sounds. EXTREMITIES: There is 1+ bilateral lower extremity edema. Spenser Fitzpatrick MD Aug 17, 2019 22:56
--- NOTE | 2019-08-17 23:45 | NUR ---
NURSE NOTES: Attempted to establish IV access x2, unable. Charge nurse attempted and utilized vein-finder, unable to obtain access. Will continue to monitor.
[2019-08-18] VITALS: BP 119/80
--- NOTE | 2019-08-18 00:13 | NUR ---
NURSE NOTES: Pt. ambulating with steady gait to bathroom, using nonslip shoes. Educated and encouraged to continue to use call light for needed assistance, pt. acknowledged understanding. Will continue to monitor.
[2019-08-18 04:00] VITALS: BP 127/77
[2019-08-18] MEDS: HydrALAZINE 10mg Tab ORAL SCH ×3 (05:26→21:49)
--- NOTE | 2019-08-18 07:00 | NUR ---
NURSE NOTES: IV inserted right forearm, 20g. Intact, saline locked.
[2019-08-18 07:28] LABS: BASOPHILS % (AUTO) 1.8 % (0.0-2.0); EOSINOPHILS % (AUTO) 2.8 % (0.0-3.0); HEMATOCRIT 32.2 % (42.0-52.0); HEMOGLOBIN 10.4 G/DL (14.2-18.0); LYMPHOCYTES % (AUTO) 14.4 % (20.0-45.0); MEAN CORPUSCULAR VOLUME 95 FL (80-99); MONOCYTES % (AUTO) 12.9 % (1.0-10.0); NEUTROPHILS % (AUTO) 68.1 % (45.0-75.0); PLATELET COUNT 108 K/UL (150-450); RED BLOOD COUNT 3.41 M/UL (4.70-6.10); RED CELL DISTRIBUTION WIDTH 15.6 % (11.6-14.8); WHITE BLOOD COUNT 5.6 K/UL (4.8-10.8)
--- NOTE | 2019-08-18 07:28 | NUR ---
HAND-OFF: Report given to GENTRY Troncoso.
[2019-08-18 07:31] LABS: ANION GAP 6 mmol/L (5-15); BLOOD UREA NITROGEN 27 mg/dL (7-18); CALCIUM 8.8 MG/DL (8.5-10.1); CARBON DIOXIDE 31 MMOL/L (21-32); CHLORIDE 103 MMOL/L (98-107); CREATININE 1.2 MG/DL (0.55-1.30); POTASSIUM 4.6 MMOL/L (3.5-5.1); SODIUM 139 MMOL/L (136-145)
--- NOTE | 2019-08-18 07:45 | NUR ---
NURSE NOTES: Received pt from GENTRY Sherwood, pt was eating, no c/o pain, no acute distress, call light w/in reach.
[2019-08-18 08:00] VITALS: BP 120/70
[2019-08-18] MEDS: Spironolactone 25mg tab ORAL SCH (09:36)
[2019-08-18] MEDS: Aspirin Baby 81mg ORAL SCH (09:37)
[2019-08-18] MEDS: Magnesium Oxide 400mg tab ORAL SCH ×3 (09:37→17:27)
[2019-08-18] MEDS: Carvedilol 6.25mg Tab ORAL SCH ×2 (09:37→21:53)
[2019-08-18] MEDS: Digoxin 0.125mg tab ORAL SCH (09:38)
[2019-08-18] MEDS: Lisinopril 10mg tab ORAL SCH (09:38)
[2019-08-18] MEDS: Augmentin 875mg Tab ORAL SCH ×2 (09:38→21:50)
[2019-08-18] MEDS: Furosemide 40mg tab ORAL SCH (09:39)
--- NOTE | 2019-08-18 09:53 | Pulmonology Progress Note ---
Assessment/Plan Assessment/Plan IMPRESSION: 1. CHF. 2. Chest pain. 3. Troponin leak. DISCUSSION: I will continue oxygen and pulmonary hygiene. Continue home medications. 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 Subjective Interval Events: Pt declined discharge Constitutional: Reports: no symptoms HEENT: Repors: no symptoms Respiratory: Reports: no symptoms Cardiovascular: Reports: no symptoms Gastrointestinal/Abdominal: Reports: no symptoms Allergies: Coded Allergies: SIMVASTATIN (Verified Allergy, Unknown, 07/03/19) Uncoded Allergies: STATINS (Allergy, Unknown, 08/13/19) Objective Last 24 Hour Vital Signs Date Time Temp Pulse Resp B/P (MAP) Pulse Ox O2 Delivery O2 Flow Rate FiO2 08/18/19 09:38 120/70 08/18/19 09:38 100 08/18/19 09:37 100 120/70 08/18/19 08:00 98.1 100 18 120/70 (87) 97 08/18/19 07:57 Nasal Cannula 2.0 08/18/19 05:26 127/77 08/18/19 04:00 96.6 101 18 127/77 (94) 99 08/18/19 00:00 98.4 82 20 119/80 (93) 93 08/17/19 21:56 92 138/70 08/17/19 21:55 138/70 08/17/19 21:00 Nasal Cannula 2.0 08/17/19 20:00 98.7 92 18 138/70 (92) 92 08/17/19 16:00 98.0 90 20 120/77 (91) 94 08/17/19 13:42 118/75 08/17/19 12:00 89 08/17/19 12:00 97.7 93 19 118/75 (89) 91 Intake and Output 08/17/19 08/18/19 19:00 07:00 Intake Total 1494 ml 2030 ml Output Total 900 ml 900 ml Balance 594 ml 1130 ml Intake Oral 1494 ml 2030 ml Output Urine Total 900 ml 900 ml # Voids 4 4 General Appearance: no acute distress HEENT: normocephalic Respiratory/Chest: chest wall non-tender Cardiovascular: normal peripheral pulses Abdomen: normal bowel sounds Laboratory Tests 08/18/19 05:35: White Blood Count 5.6, Red Blood Count 3.41L, Hemoglobin 10.4L, Hematocrit 32.2L , Mean Corpuscular Volume 95, Mean Corpuscular Hemoglobin 30.4, Mean Corpuscular Hemoglobin Concent 32.2, Red Cell Distribution Width 15.6H, Platelet Count 108L, Mean Platelet Volume 6.9, Neutrophils (%) (Auto) 68.1, Lymphocytes (%) (Auto) 14.4L, Monocytes (%) (Auto) 12.9H, Eosinophils (%) (Auto ) 2.8, Basophils (%) (Auto) 1.8, Sodium Level 139, Potassium Level 4.6, Chloride Level 103, Carbon Dioxide Level 31, Anion Gap 6, Blood Urea Nitrogen 27H, Creatinine 1.2, Estimat Glomerular Filtration Rate > 60, Glucose Level 90, Calcium Level 8.8, Magnesium Level 1.7L Current Medications Medications (Trade) Dose Ordered Sig/Marybeth Route PRN Reason Start Time Stop Time Status Last Admin Dose Admin Acetaminophen (Tylenol) 650 mg Q4H PRN ORAL Mild Pain/Temp > 100.5 08/17/19 19:03 09/16/19 19:02 08/17/19 20:33 Amoxicillin/ Clavulanate Potassium (Augmentin) 875 mg EVERY 12 HOURS ORAL 08/17/19 21:00 08/20/19 22:44 08/18/19 09:38 Aspirin (ASA) 81 mg DAILY ORAL 08/18/19 09:00 09/28/19 08:59 08/18/19 09:37 Atorvastatin Calcium (Lipitor) 40 mg BEDTIME ORAL 08/17/19 21:00 11/12/19 20:59 08/17/19 20:34 Carvedilol (Coreg) 6.25 mg EVERY 12 HOURS ORAL 08/17/19 21:00 09/13/19 08:59 08/18/19 09:37 Digoxin (Lanoxin) 0.125 mg DAILY ORAL 08/18/19 09:00 11/12/19 08:59 08/18/19 09:38 Ferrous Sulfate (Feosol) 325 mg THREE TIMES A DAY ORAL 08/18/19 09:00 11/15/19 08:59 08/18/19 09:37 Furosemide (Lasix) 40 mg DAILY ORAL 08/18/19 09:00 09/17/19 08:59 08/18/19 09:39 Hydralazine HCl (Apresoline) 10 mg Q8HR ORAL 08/17/19 22:00 11/12/19 05:59 08/18/19 05:26 Lisinopril (ZestriL) 5 mg DAILY ORAL 08/18/19 09:00 09/13/19 08:59 08/18/19 09:38 Magnesium Oxide (Mag-Ox 400mg) 400 mg THREE TIMES A DAY ORAL 08/18/19 09:00 08/18/19 22:00 08/18/19 09:37 Pantoprazole (Protonix) 40 mg DAILY ORAL 08/18/19 09:00 09/13/19 06:29 08/18/19 09:37 Spironolactone (Aldactone) 25 mg DAILY ORAL 08/18/19 09:00 09/13/19 12:14 08/18/19 09:36 Tramadol HCl (Ultram) 50 mg Q6H PRN ORAL severe pain 08/17/19 19:04 08/24/19 19:03 Frank Baca MD Aug 18, 2019 09:53
[2019-08-18 12:00] VITALS: BP 118/58
[2019-08-18 16:00] VITALS: BP 111/70
--- NOTE | 2019-08-18 19:30 | NUR ---
NURSE NOTES: Receive a report from GENTRY Troncoso. Round is done. Pt is awake and alert. No acute distress noted. bilateral L/E cellulitis discomfort is tolerating. No redness noted. On oral ATB treatment. Breathing is even and non labored. Call light within reach. Will continue to monitor.
--- NOTE | 2019-08-18 19:53 | NUR ---
HAND-OFF: Report given to GENTRY Alvarez. pt is in stable condition.
[2019-08-18 20:00] VITALS: BP 104/68
[2019-08-18] MEDS: Atorvastatin 20mg tab ORAL SCH (21:52)
[2019-08-19] VITALS: BP 108/71
--- NOTE | 2019-08-19 00:30 | Progress Note ---
DATE: 08/18/2019 SUBJECTIVE: The patient still complains of shortness of breath and he does not feel like he is safe to go. All the consultants have cleared the patient for discharge. The patient has appealed for insurance. ASSESSMENT AND PLAN: Shortness of breath, leg edema, CHF exacerbation. Patient's acute phase of CHF has been treated. 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 We are waiting for the appeal results from the insurance. The patient is afebrile, otherwise hemodynamically stable. We will monitor the patient while in-house and the highway maintenance supervisor, crossing tender, Infectious Diseases have already cleared the patient; however, the patient feels like he needs to stay longer in the hospital. Felisa Blair M.D. DR: Ros JOB#: [id number] CC:
[2019-08-19 04:00] VITALS: BP 109/68
[2019-08-19] MEDS: HydrALAZINE 10mg Tab ORAL SCH (06:16)
--- NOTE | 2019-08-19 07:00 | NUR ---
NURSE NOTES: No acute distress noted. Given Tylenol for L/E soreness. Will continue to monitor.
--- NOTE | 2019-08-19 07:15 | NUR ---
HAND-OFF: Report given to GENTRY Hernandez. Round is done. Pt is asleep.
--- NOTE | 2019-08-19 07:23 | NUR ---
NURSE NOTES: WALKING ROUNDS DONE WITH NIGHT RN. PATIENT ASLEEP IN BED . BED IN LOW AND LOCKED POSITION, CALL LIGHT WITHIN REACH.
[2019-08-19 08:00] VITALS: BP 93/65
[2019-08-19] MEDS: Digoxin 0.125mg tab ORAL SCH (08:39)
[2019-08-19] MEDS: Aspirin Baby 81mg ORAL SCH (08:39)
[2019-08-19] MEDS: Furosemide 40mg tab ORAL SCH (08:39)
[2019-08-19] MEDS: Augmentin 875mg Tab ORAL SCH ×2 (08:39→21:03)
--- NOTE | 2019-08-19 09:50 | Hematology/Onc Progress Note ---
Assessment/Plan Assessment/Plan Assessment and Recs: # Thrombocytopenia - potential causes multifactorial, evaluate liver and viral etiologies to begin, also could be related to underlying medications patient has received. HIV is neg --> Hep panel and HIV ordered (hiv neg) --> US abd to evaluate for cirrhosis and hsm ordered --> ++ SPLENOMEGALY IS NOTED --> Peripheral smear ordered to evaluate for blasts /schistocytes --> none noted --> abx and other meds have been reviewed --> ok for ppx if plt >50k w/ either heparin or lovenox --> Transfuse if Plt < 20k and fever, or if Plt < 10k without fever --> plt trend 93k-->92k # Anemia of iron deficiency, with a ferritin that was 29 --> Anemia workup has been ordered, rule out gi bleed --> No evidence of hemolysis is noted, peripheral smear has been reviewed. --> Hgb goal >7. Transfuse prn. --> IRON Venofer 100mg iv x5 days ordered --> if unable to tolerate iv then give po ferrous sulfate --> Medications have been reviewed --> hgb 10.4-->10.2-->9.8 # New onset dilated cardiomyopathy with severe LV systolic dysfunction and LVEF at 15%, drop of LVEF from 55% measured in 2015, require right and left heart cath to rule out CAD. --> patient is refusing this test now and do not wish to be transferred out. He realizes the risk of his actions which may include . Dr. Blair drop hammer setter up also notified. In the meantime we ll continue guideline recommended therapy for heart failure. --> as per cards recs # Severe pulmonary HTN due to left heart failure, continue diuretics. --> pulm consulted # MARGUERITE, probably cardiorenal syndrome. --> per renal # Acute combined systolic and diastolic CHF. # Small pericardial effusion likely element of right heart failure --> per cards care Appreciate consultation and eladio RN Subjective Allergies: Coded Allergies: SIMVASTATIN (Verified Allergy, Unknown, 07/03/19) Uncoded Allergies: STATINS (Allergy, Unknown, 08/13/19) Subjective 08/14 less cp, have ordered for iv iron, cbc and bmp are pending 08/15 no bleeding, labs noted, remains on iv iron, labs noted, ferritin low at 27 , no bleeding 08/16 no night sweats, short nsvt run, hgb remains low, cbc today pending, wants morphine 08/18 alert, no acute events, refusing dc, no sob Objective Objective Current Medications Medications (Trade) Dose Ordered Sig/Marybeth Route PRN Reason Start Time Stop Time Status Last Admin Dose Admin Acetaminophen (Tylenol) 650 mg Q4H PRN ORAL Mild Pain/Temp > 100.5 08/17/19 19:03 09/16/19 19:02 08/19/19 06:20 Amoxicillin/ Clavulanate Potassium (Augmentin) 875 mg EVERY 12 HOURS ORAL 08/17/19 21:00 08/20/19 22:44 08/19/19 08:39 Aspirin (ASA) 81 mg DAILY ORAL 08/18/19 09:00 09/28/19 08:59 08/19/19 08:39 Atorvastatin Calcium (Lipitor) 40 mg BEDTIME ORAL 08/17/19 21:00 11/12/19 20:59 08/18/19 21:52 Carvedilol (Coreg) 6.25 mg EVERY 12 HOURS ORAL 08/17/19 21:00 09/13/19 08:59 08/18/19 21:53 Digoxin (Lanoxin) 0.125 mg DAILY ORAL 08/18/19 09:00 11/12/19 08:59 08/19/19 08:39 Ferrous Sulfate (Feosol) 325 mg THREE TIMES A DAY ORAL 08/18/19 09:00 11/15/19 08:59 08/19/19 08:39 Furosemide (Lasix) 40 mg DAILY ORAL 08/18/19 09:00 09/17/19 08:59 08/19/19 08:39 Hydralazine HCl (Apresoline) 10 mg Q8HR ORAL 08/17/19 22:00 11/12/19 05:59 08/19/19 06:16 Lisinopril (ZestriL) 5 mg DAILY ORAL 08/18/19 09:00 09/13/19 08:59 08/18/19 09:38 Pantoprazole (Protonix) 40 mg DAILY ORAL 08/18/19 09:00 09/13/19 06:29 08/19/19 08:39 Spironolactone (Aldactone) 25 mg DAILY ORAL 08/18/19 09:00 09/13/19 12:14 08/18/19 09:36 Tramadol HCl (Ultram) 50 mg Q6H PRN ORAL severe pain 08/17/19 19:04 08/24/19 19:03 Last 24 Hour Vital Signs Date Time Temp Pulse Resp B/P (MAP) Pulse Ox O2 Delivery O2 Flow Rate FiO2 08/19/19 08:39 76 08/19/19 08:00 97.9 92 21 93/65 (74) 96 76 08/19/19 06:16 144/112 08/19/19 04:00 98.4 98 20 109/68 (82) 97 08/19/19 00:00 98.3 96 20 108/71 (83) 95 08/18/19 21:53 92 104/70 08/18/19 21:49 106/68 08/18/19 21:00 Nasal Cannula 2.0 08/18/19 20:00 98.5 91 18 104/68 (80) 97 08/18/19 16:00 98.2 95 18 111/70 (84) 94 08/18/19 13:33 118/58 08/18/19 12:00 98.1 87 18 118/58 (78) 94 08/18/19 09:38 120/70 08/18/19 09:38 100 08/18/19 09:37 100 120/70 08/18/19 08:00 98.1 100 18 120/70 (87) 97 08/18/19 07:57 Nasal Cannula 2.0 08/18/19 05:26 127/77 08/18/19 04:00 96.6 101 18 127/77 (94) 99 08/18/19 00:00 98.4 82 20 119/80 (93) 93 08/17/19 21:56 92 138/70 08/17/19 21:55 138/70 08/17/19 21:00 Nasal Cannula 2.0 08/17/19 20:00 98.7 92 18 138/70 (92) 92 08/17/19 16:00 98.0 90 20 120/77 (91) 94 08/17/19 13:42 118/75 08/17/19 12:00 89 08/17/19 12:00 97.7 93 19 118/75 (89) 91 Intake and Output 08/18/19 08/19/19 19:00 07:00 Intake Total 800 ml 1200 ml Output Total 650 ml Balance 800 ml 550 ml Intake Oral 800 ml 1200 ml Output Urine Total 650 ml # Voids 3 7 Labs Test 08/17/19 05:48 08/18/19 05:35 White Blood Count 5.0 K/UL (4.8-10.8) 5.6 K/UL (4.8-10.8) Red Blood Count 3.80 M/UL (4.70-6.10) 3.41 M/UL (4.70-6.10) Hemoglobin 11.5 G/DL (14.2-18.0) 10.4 G/DL (14.2-18.0) Hematocrit 37.4 % (42.0-52.0) 32.2 % (42.0-52.0) Mean Corpuscular Volume 98 FL (80-99) 95 FL (80-99) Mean Corpuscular Hemoglobin 30.2 PG (27.0-31.0) 30.4 PG (27.0-31.0) Mean Corpuscular Hemoglobin Concent 30.7 G/DL (32.0-36.0) 32.2 G/DL (32.0-36.0) Red Cell Distribution Width 15.8 % (11.6-14.8) 15.6 % (11.6-14.8) Platelet Count 104 K/UL (150-450) 108 K/UL (150-450) Mean Platelet Volume 7.8 FL (6.5-10.1) 6.9 FL (6.5-10.1) Neutrophils (%) (Auto) 67.7 % (45.0-75.0) 68.1 % (45.0-75.0) Lymphocytes (%) (Auto) 14.8 % (20.0-45.0) 14.4 % (20.0-45.0) Monocytes (%) (Auto) 12.5 % (1.0-10.0) 12.9 % (1.0-10.0) Eosinophils (%) (Auto) 3.2 % (0.0-3.0) 2.8 % (0.0-3.0) Basophils (%) (Auto) 1.8 % (0.0-2.0) 1.8 % (0.0-2.0) Sodium Level 138 MMOL/L (136-145) 139 MMOL/L (136-145) Potassium Level 4.2 MMOL/L (3.5-5.1) 4.6 MMOL/L (3.5-5.1) Chloride Level 99 MMOL/L (98-107) 103 MMOL/L (98-107) Carbon Dioxide Level 33 MMOL/L (21-32) 31 MMOL/L (21-32) Anion Gap 6 mmol/L (5-15) 6 mmol/L (5-15) Blood Urea Nitrogen 21 mg/dL (7-18) 27 mg/dL (7-18) Creatinine 1.3 MG/DL (0.55-1.30) 1.2 MG/DL (0.55-1.30) Estimat Glomerular Filtration Rate > 60 mL/min (>60) > 60 mL/min (>60) Glucose Level 123 MG/DL (74-106) 90 MG/DL (74-106) Calcium Level 8.9 MG/DL (8.5-10.1) 8.8 MG/DL (8.5-10.1) Magnesium Level 1.7 MG/DL (1.8-2.4) Height (Feet): 5 Height (Inches): 9.00 Weight (Pounds): 204 Objective Vitals: reviewed General: NAD Neck: supple Chest: clear breath sounds bilaterally noted crackles+++ Cardiovascular: RRR, no s3, s4 Abdomen: soft, nontender, nd Extremities: n1+ edema, normal range of motion Mental: alert Labs: noted Mihai Jean MD Aug 19, 2019 09:50
--- NOTE | 2019-08-19 11:30 | NUR ---
NURSE NOTES: PATIENT SEEN AND ASSESSED. PATIENT ASLEEP IN BED BUT AROUSABLE. BP 93/64 HR 87 RR 21 SPO2 98% O2 @ NC 2L. NOTED BP LOWER THAN PREVIOUS SHIFT DOCUMENTED. PATIENT WITH C/O DIZZINESS. SOME A.M. BP MEDS WITH HELD. PLACED CALL TO DR. BAILEY. AWAITING RETURN CALL. PATIENT AWARE. BED IN LOW AND LOCKED POSITION.
--- NOTE | 2019-08-19 11:34 | General Progress Note ---
Assessment/Plan Assessment/Plan: (1) CHF (2) Chest pain (3) Peripheral neuropathy Patient will be continued on Tramadol. D/w Dr. Renteria and he concurred. Subjective Date patient seen: Aug 19, 2019 Time patient seen: 11:30 - am Constitutional: Reports: no symptoms HEENT: Reports: no symptoms Cardiovascular: Reports: no symptoms Respiratory: Reports: no symptoms Gastrointestinal/Abdominal: Reports: no symptoms Genitourinary: Reports: no symptoms Neurologic/Psychiatric: Reports: no symptoms Endocrine: Reports: no symptoms Hematologic/Lymphatic: Reports: no symptoms Allergies: Coded Allergies: SIMVASTATIN (Verified Allergy, Unknown, 07/03/19) Uncoded Allergies: STATINS (Allergy, Unknown, 08/13/19) Subjective Patient is in bed and shows no signs of pain or distress. Has not request the the Tramadol in the last 24Hrs. Objective Last 24 Hour Vital Signs Date Time Temp Pulse Resp B/P (MAP) Pulse Ox O2 Delivery O2 Flow Rate FiO2 08/19/19 09:00 Nasal Cannula 2.0 08/19/19 08:39 76 08/19/19 08:00 97.9 92 21 93/65 (74) 96 76 08/19/19 06:16 144/112 08/19/19 04:00 98.4 98 20 109/68 (82) 97 08/19/19 00:00 98.3 96 20 108/71 (83) 95 08/18/19 21:53 92 104/70 08/18/19 21:49 106/68 08/18/19 21:00 Nasal Cannula 2.0 08/18/19 20:00 98.5 91 18 104/68 (80) 97 08/18/19 16:00 98.2 95 18 111/70 (84) 94 08/18/19 13:33 118/58 08/18/19 12:00 98.1 87 18 118/58 (78) 94 Intake and Output 08/18/19 08/19/19 19:00 07:00 Intake Total 800 ml 1200 ml Output Total 650 ml Balance 800 ml 550 ml Intake Oral 800 ml 1200 ml Output Urine Total 650 ml # Voids 3 7 Height (Feet): 5 Height (Inches): 9.00 Weight (Pounds): 204 General Appearance: no apparent distress, alert EENT: PERRL/EOMI, normal ENT inspection Neck: non-tender, normal alignment Cardiovascular: normal rate, regular rhythm Respiratory/Chest: decreased breath sounds Abdomen: non tender, soft Extremities: non-tender Edema: trace edema Neurologic: alert, oriented x 3 Tremayne Fenton Aug 19, 2019 11:34
[2019-08-19 11:39] VITALS: BP 93/64
--- NOTE | 2019-08-19 12:12 | Pulmonology Progress Note ---
Assessment/Plan Assessment/Plan IMPRESSION: 1. CHF. 2. Chest pain. 3. Troponin leak. DISCUSSION: I will continue oxygen and pulmonary hygiene. Continue home medications. 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 Subjective Interval Events: None new Constitutional: Reports: no symptoms HEENT: Repors: no symptoms Respiratory: Reports: no symptoms Cardiovascular: Reports: no symptoms Allergies: Coded Allergies: SIMVASTATIN (Verified Allergy, Unknown, 07/03/19) Uncoded Allergies: STATINS (Allergy, Unknown, 08/13/19) Objective Last 24 Hour Vital Signs Date Time Temp Pulse Resp B/P (MAP) Pulse Ox O2 Delivery O2 Flow Rate FiO2 08/19/19 11:39 97.6 87 21 93/64 (74) 98 08/19/19 09:00 Nasal Cannula 2.0 08/19/19 08:39 76 08/19/19 08:00 97.9 92 21 93/65 (74) 96 76 08/19/19 06:16 144/112 08/19/19 04:00 98.4 98 20 109/68 (82) 97 08/19/19 00:00 98.3 96 20 108/71 (83) 95 08/18/19 21:53 92 104/70 08/18/19 21:49 106/68 08/18/19 21:00 Nasal Cannula 2.0 08/18/19 20:00 98.5 91 18 104/68 (80) 97 08/18/19 16:00 98.2 95 18 111/70 (84) 94 08/18/19 13:33 118/58 Intake and Output 08/18/19 08/19/19 19:00 07:00 Intake Total 800 ml 1200 ml Output Total 650 ml Balance 800 ml 550 ml Intake Oral 800 ml 1200 ml Output Urine Total 650 ml # Voids 3 7 General Appearance: no acute distress HEENT: normocephalic Respiratory/Chest: chest wall non-tender Cardiovascular: normal peripheral pulses Abdomen: normal bowel sounds Current Medications Medications (Trade) Dose Ordered Sig/Marybeth Route PRN Reason Start Time Stop Time Status Last Admin Dose Admin Acetaminophen (Tylenol) 650 mg Q4H PRN ORAL Mild Pain/Temp > 100.5 08/17/19 19:03 09/16/19 19:02 08/19/19 06:20 Amoxicillin/ Clavulanate Potassium (Augmentin) 875 mg EVERY 12 HOURS ORAL 08/17/19 21:00 08/20/19 22:44 08/19/19 08:39 Aspirin (ASA) 81 mg DAILY ORAL 08/18/19 09:00 09/28/19 08:59 08/19/19 08:39 Atorvastatin Calcium (Lipitor) 40 mg BEDTIME ORAL 08/17/19 21:00 11/12/19 20:59 08/18/19 21:52 Carvedilol (Coreg) 6.25 mg EVERY 12 HOURS ORAL 08/17/19 21:00 09/13/19 08:59 08/18/19 21:53 Digoxin (Lanoxin) 0.125 mg DAILY ORAL 08/18/19 09:00 11/12/19 08:59 08/19/19 08:39 Ferrous Sulfate (Feosol) 325 mg THREE TIMES A DAY ORAL 08/18/19 09:00 11/15/19 08:59 08/19/19 08:39 Furosemide (Lasix) 20 mg DAILY ORAL 08/20/19 09:00 09/17/19 08:59 UNV Lisinopril (ZestriL) 5 mg DAILY ORAL 08/18/19 09:00 09/13/19 08:59 08/18/19 09:38 Pantoprazole (Protonix) 40 mg DAILY ORAL 08/18/19 09:00 09/13/19 06:29 08/19/19 08:39 Spironolactone (Aldactone) 25 mg DAILY ORAL 08/18/19 09:00 09/13/19 12:14 08/18/19 09:36 Tramadol HCl (Ultram) 50 mg Q6H PRN ORAL severe pain 08/17/19 19:04 08/24/19 19:03 Frank Baca MD Aug 19, 2019 12:12
[2019-08-19] MEDS: Spironolactone 25mg tab ORAL SCH (12:17)
[2019-08-19] MEDS: Lisinopril 10mg tab ORAL SCH (12:17)
[2019-08-19] MEDS: Carvedilol 6.25mg Tab ORAL SCH ×2 (12:18→21:04)
--- NOTE | 2019-08-19 12:22 | NUR ---
NURSE NOTES: CALL RECEIVED FROM DR. BAILEY. DISCUSSED WITH MD; PT.'S VITAL SIGNS. NEW MED ORDERS RECEIVED. OK TO GIVE ALL AM. MEDS ORDERED.PATIENT INFORMED
--- NOTE | 2019-08-19 14:55 | Infectious Diseases Prog Note ---
Assessment/Plan Assessment/Plan IMPRESSION: Stasis dermatitis, may have mild nonpurulent cellulitis. Congestive heart failure and cardiomyopathy with EF=15% Anemia, Thrombocytopenia, Pulmonary hypertension, COPD. Elevated troponin RECOMMENDATION: Continue Augmentin in hospital Agree with discharge without antibiotic Subjective ROS Limited/Unobtainable: No Constitutional: Denies: fever Respiratory: Reports: shortness of breath Cardiovascular: Reports: other - SOB in rest Gastrointestinal/Abdominal: Reports: no symptoms Genitourinary: Reports: no symptoms Allergies: Coded Allergies: SIMVASTATIN (Verified Allergy, Unknown, 07/03/19) Uncoded Allergies: STATINS (Allergy, Unknown, 08/13/19) Objective Vital Signs Last 24 Hour Vital Signs Date Time Temp Pulse Resp B/P (MAP) Pulse Ox O2 Delivery O2 Flow Rate FiO2 08/19/19 12:18 87 93/64 08/19/19 12:17 93/64 08/19/19 11:39 97.6 87 21 93/64 (74) 98 08/19/19 09:00 Nasal Cannula 2.0 Nasal Cannula 3.0 08/19/19 08:39 76 08/19/19 08:00 97.9 92 21 93/65 (74) 96 76 08/19/19 06:16 144/112 08/19/19 04:00 98.4 98 20 109/68 (82) 97 08/19/19 00:00 98.3 96 20 108/71 (83) 95 08/18/19 21:53 92 104/70 08/18/19 21:49 106/68 08/18/19 21:00 Nasal Cannula 2.0 08/18/19 20:00 98.5 91 18 104/68 (80) 97 08/18/19 16:00 98.2 95 18 111/70 (84) 94 Height (Feet): 5 Height (Inches): 9.00 Weight (Pounds): 204 General Appearance: no acute distress HEENT: mucous membranes moist Respiratory/Chest: lungs clear Cardiovascular: normal rate Abdomen: soft, non tender Extremities: other - legs edema Skin: other - hyperpigmentaztion & skin changes of legs Neurologic/Psychiatric: alert, oriented x 3, responsive Current Medications Medications (Trade) Dose Ordered Sig/Marybeth Route PRN Reason Start Time Stop Time Status Last Admin Dose Admin Acetaminophen (Tylenol) 650 mg Q4H PRN ORAL Mild Pain/Temp > 100.5 08/17/19 19:03 09/16/19 19:02 08/19/19 06:20 Amoxicillin/ Clavulanate Potassium (Augmentin) 875 mg EVERY 12 HOURS ORAL 08/17/19 21:00 08/20/19 22:44 08/19/19 08:39 Aspirin (ASA) 81 mg DAILY ORAL 08/18/19 09:00 09/28/19 08:59 08/19/19 08:39 Atorvastatin Calcium (Lipitor) 40 mg BEDTIME ORAL 08/17/19 21:00 11/12/19 20:59 08/18/19 21:52 Carvedilol (Coreg) 6.25 mg EVERY 12 HOURS ORAL 08/17/19 21:00 09/13/19 08:59 08/19/19 12:18 Digoxin (Lanoxin) 0.125 mg DAILY ORAL 08/18/19 09:00 11/12/19 08:59 08/19/19 08:39 Ferrous Sulfate (Feosol) 325 mg THREE TIMES A DAY ORAL 08/18/19 09:00 11/15/19 08:59 08/19/19 13:24 Furosemide (Lasix) 20 mg DAILY ORAL 08/20/19 09:00 09/17/19 08:59 Lisinopril (ZestriL) 5 mg DAILY ORAL 08/18/19 09:00 09/13/19 08:59 08/19/19 12:17 Pantoprazole (Protonix) 40 mg DAILY ORAL 08/18/19 09:00 09/13/19 06:29 08/19/19 08:39 Spironolactone (Aldactone) 25 mg DAILY ORAL 08/18/19 09:00 09/13/19 12:14 08/19/19 12:17 Tramadol HCl (Ultram) 50 mg Q6H PRN ORAL severe pain 08/17/19 19:04 08/24/19 19:03 Carmelo Canada MD Aug 19, 2019 14:55
[2019-08-19 15:33] VITALS: BP 115/76
[2019-08-19] MEDS ORDERED: Eucerin Cream 15gm TOPIC PRN (16:30)
--- NOTE | 2019-08-19 19:15 | NUR ---
HAND-OFF: Report given to NEO EUCEDA RN.
[2019-08-19] MEDS: Atorvastatin 20mg tab ORAL SCH (21:03)
--- NOTE | 2019-08-19 22:10 | General Progress Note ---
Assessment/Plan Problem List: (1) HTN (hypertension) ICD Codes: I10 - HTN (hypertension) SNOMED: 10660350 (2) Pneumonia ICD Codes: J18.9 - Pneumonia SNOMED: 890013196 (3) SOB (shortness of breath) ICD Codes: R06.02 - Shortness of breath SNOMED: 117488359 (4) ACS (acute coronary syndrome) ICD Codes: I24.9 - Acute ischemic heart disease, unspecified SNOMED: 261575165 (5) CHF (congestive heart failure) ICD Codes: I50.9 - Heart failure, unspecified SNOMED: 14509245 (6) Anemia ICD Codes: D64.9 - Anemia, unspecified SNOMED: 693540425 (7) Cardiomyopathy ICD Codes: I42.9 - Cardiomyopathy, unspecified SNOMED: 46709011 Assessment/Plan: still c/o sob cleared by id dr and cardiology for dc awaiting appeal decision by insurance needs outpatient management of chf chf exacerbation is improved and needs outpatient treatment for chf arrythmia le Subjective ROS Limited/Unobtainable: Yes Allergies: Coded Allergies: SIMVASTATIN (Verified Allergy, Unknown, 07/03/19) Uncoded Allergies: STATINS (Allergy, Unknown, 08/13/19) Objective Last 24 Hour Vital Signs Date Time Temp Pulse Resp B/P (MAP) Pulse Ox O2 Delivery O2 Flow Rate FiO2 08/19/19 21:04 94 106/74 08/19/19 15:33 98.2 89 19 115/76 (89) 99 08/19/19 12:18 87 93/64 08/19/19 12:17 93/64 08/19/19 11:39 97.6 87 21 93/64 (74) 98 08/19/19 09:00 Nasal Cannula 2.0 Nasal Cannula 3.0 08/19/19 08:39 76 08/19/19 08:00 97.9 92 21 93/65 (74) 96 76 08/19/19 06:16 144/112 08/19/19 04:00 98.4 98 20 109/68 (82) 97 08/19/19 00:00 98.3 96 20 108/71 (83) 95 Intake and Output 08/18/19 08/19/19 19:00 07:00 Intake Total 800 ml 1200 ml Output Total 650 ml Balance 800 ml 550 ml Intake Oral 800 ml 1200 ml Output Urine Total 650 ml # Voids 3 7 Height (Feet): 5 Height (Inches): 9.00 Weight (Pounds): 204 Felisa Blair MD Aug 19, 2019 22:10
[2019-08-20] VITALS: BP 118/75
--- NOTE | 2019-08-20 02:32 | NUR ---
NURSES NOTE: Pt in bed, A/OX4, denies dizziness, weakness, or disorientation. VS WNL. Assessing BP closely as BP was lower than baseline AM shift. No outward s/s of distress noted. Breathing is even and unlabored on 3L oxygen. All due meds will be given. Bed at lowest level. Call light within reach. Pt will continue to be monitored.
--- NOTE | 2019-08-20 06:33 | Hematology/Onc Progress Note ---
Assessment/Plan Assessment/Plan Assessment and Recs: # Thrombocytopenia - potential causes multifactorial, evaluate liver and viral etiologies to begin, also could be related to underlying medications patient has received. HIV is neg --> Hep panel and HIV ordered (hiv neg) --> US abd to evaluate for cirrhosis and hsm ordered --> ++ SPLENOMEGALY IS NOTED --> Peripheral smear ordered to evaluate for blasts /schistocytes --> none noted --> abx and other meds have been reviewed --> ok for ppx if plt >50k w/ either heparin or lovenox --> Transfuse if Plt < 20k and fever, or if Plt < 10k without fever --> plt trend 93k-->92k--.108k # Anemia of iron deficiency, with a ferritin that was 29 --> Anemia workup has been ordered, rule out gi bleed --> No evidence of hemolysis is noted, peripheral smear has been reviewed. --> Hgb goal >7. Transfuse prn. --> IRON Venofer 100mg iv x5 days ordered --> if unable to tolerate iv then give po ferrous sulfate --> Medications have been reviewed --> hgb 10.4-->10.2-->9.8-->10.4 # New onset dilated cardiomyopathy with severe LV systolic dysfunction and LVEF at 15%, drop of LVEF from 55% measured in 2015, require right and left heart cath to rule out CAD. --> patient is refusing this test now and do not wish to be transferred out. He realizes the risk of his actions which may include . Dr. Blair gasoline engine assembler also notified. In the meantime we ll continue guideline recommended therapy for heart failure. --> as per cards recs # Severe pulmonary HTN due to left heart failure, continue diuretics. --> pulm consulted # MARGUERITE, probably cardiorenal syndrome. --> per renal # Acute combined systolic and diastolic CHF. # Small pericardial effusion likely element of right heart failure --> per cards care Appreciate consultation and eladio RN Subjective Constitutional: Denies: no symptoms, chills, fever, malaise, weakness, other HEENT: Denies: no symptoms, eye pain, blurred vision, tearing, double vision, ear pain, ear discharge, nose pain, nose congestion, throat pain, throat swelling, mouth pain, mouth swelling, other Cardiovascular: Denies: no symptoms, chest pain, edema, irregular heart rate, lightheadedness, palpitations, syncope, other Gastrointestinal/Abdominal: Denies: no symptoms, abdomen distended, abdominal pain, black stools, tarry stools, blood in stool, constipated, diarrhea, difficulty swallowing, nausea, poor appetite, poor fluid intake, rectal bleeding , vomiting, other Genitourinary: Denies: no symptoms, burning, discharge, frequency, flank pain, hematuria, incontinence, pain, urgency, other Neurologic/Psychiatric: Denies: no symptoms, anxiety, depressed, emotional problems, headache, numbness, paresthesia, pre-existing deficit, seizure, tingling, tremors, weakness, other Endocrine: Denies: no symptoms, excessive sweating, flushing, intolerance to cold, intolerance to heat, increased hunger, increased thirst, increased urine, unexplained weight gain, unexplained weight loss, other Hematologic/Lymphatic: Denies: no symptoms, anemia, easy bleeding, easy bruising, adenopathy, other Allergies: Coded Allergies: SIMVASTATIN (Verified Allergy, Unknown, 07/03/19) Uncoded Allergies: STATINS (Allergy, Unknown, 08/13/19) Subjective 08/14 less cp, have ordered for iv iron, cbc and bmp are pending 08/15 no bleeding, labs noted, remains on iv iron, labs noted, ferritin low at 27 , no bleeding 08/16 no night sweats, short nsvt run, hgb remains low, cbc today pending, wants morphine 08/18 alert, no acute events, refusing dc, no sob 08/19 remains on augmentin, no fc, no night sweats reported Objective Objective Current Medications Medications (Trade) Dose Ordered Sig/Marybeth Route PRN Reason Start Time Stop Time Status Last Admin Dose Admin Acetaminophen (Tylenol) 650 mg Q4H PRN ORAL Mild Pain/Temp > 100.5 08/17/19 19:03 09/16/19 19:02 08/19/19 06:20 Amoxicillin/ Clavulanate Potassium (Augmentin) 875 mg EVERY 12 HOURS ORAL 08/17/19 21:00 08/20/19 22:44 08/19/19 21:03 Aspirin (ASA) 81 mg DAILY ORAL 08/18/19 09:00 09/28/19 08:59 08/19/19 08:39 Atorvastatin Calcium (Lipitor) 40 mg BEDTIME ORAL 08/17/19 21:00 11/12/19 20:59 08/19/19 21:03 Carvedilol (Coreg) 6.25 mg EVERY 12 HOURS ORAL 08/17/19 21:00 09/13/19 08:59 08/19/19 21:04 Digoxin (Lanoxin) 0.125 mg DAILY ORAL 08/18/19 09:00 11/12/19 08:59 08/19/19 08:39 Ferrous Sulfate (Feosol) 325 mg THREE TIMES A DAY ORAL 08/18/19 09:00 11/15/19 08:59 08/19/19 18:09 Furosemide (Lasix) 20 mg DAILY ORAL 08/20/19 09:00 09/17/19 08:59 Lisinopril (ZestriL) 5 mg DAILY ORAL 08/18/19 09:00 09/13/19 08:59 08/19/19 12:17 Multi-Ingredient Ointment (Eucerin) 1 applic THREE TIMES A DAY PRN TOPIC Itching/Pruritis 08/19/19 16:30 11/17/19 16:29 08/19/19 18:09 Pantoprazole (Protonix) 40 mg DAILY ORAL 08/18/19 09:00 09/13/19 06:29 08/19/19 08:39 Spironolactone (Aldactone) 25 mg DAILY ORAL 08/18/19 09:00 09/13/19 12:14 08/19/19 12:17 Tramadol HCl (Ultram) 50 mg Q6H PRN ORAL severe pain 08/17/19 19:04 08/24/19 19:03 08/19/19 22:14 Last 24 Hour Vital Signs Date Time Temp Pulse Resp B/P (MAP) Pulse Ox O2 Delivery O2 Flow Rate FiO2 08/20/19 00:00 98.2 68 20 118/75 (89) 100 08/19/19 21:04 94 106/74 08/19/19 21:00 Nasal Cannula 3.0 Nasal Cannula 3.0 08/19/19 15:33 98.2 89 19 115/76 (89) 99 08/19/19 12:18 87 93/64 08/19/19 12:17 93/64 08/19/19 11:39 97.6 87 21 93/64 (74) 98 08/19/19 09:00 Nasal Cannula 2.0 Nasal Cannula 3.0 08/19/19 08:39 76 08/19/19 08:00 97.9 92 21 93/65 (74) 96 76 08/19/19 06:16 144/112 08/19/19 04:00 98.4 98 20 109/68 (82) 97 08/19/19 00:00 98.3 96 20 108/71 (83) 95 08/18/19 21:53 92 104/70 08/18/19 21:49 106/68 08/18/19 21:00 Nasal Cannula 2.0 08/18/19 20:00 98.5 91 18 104/68 (80) 97 08/18/19 16:00 98.2 95 18 111/70 (84) 94 08/18/19 13:33 118/58 08/18/19 12:00 98.1 87 18 118/58 (78) 94 08/18/19 09:38 120/70 08/18/19 09:38 100 08/18/19 09:37 100 120/70 08/18/19 08:00 98.1 100 18 120/70 (87) 97 08/18/19 07:57 Nasal Cannula 2.0 Intake and Output 08/19/19 08/20/19 19:00 07:00 Intake Total 1440 ml Output Total 500 ml 400 ml Balance 940 ml -400 ml Intake Oral 1440 ml Output Urine Total 500 ml 400 ml Labs Test 08/18/19 05:35 White Blood Count 5.6 K/UL (4.8-10.8) Red Blood Count 3.41 M/UL (4.70-6.10) Hemoglobin 10.4 G/DL (14.2-18.0) Hematocrit 32.2 % (42.0-52.0) Mean Corpuscular Volume 95 FL (80-99) Mean Corpuscular Hemoglobin 30.4 PG (27.0-31.0) Mean Corpuscular Hemoglobin Concent 32.2 G/DL (32.0-36.0) Red Cell Distribution Width 15.6 % (11.6-14.8) Platelet Count 108 K/UL (150-450) Mean Platelet Volume 6.9 FL (6.5-10.1) Neutrophils (%) (Auto) 68.1 % (45.0-75.0) Lymphocytes (%) (Auto) 14.4 % (20.0-45.0) Monocytes (%) (Auto) 12.9 % (1.0-10.0) Eosinophils (%) (Auto) 2.8 % (0.0-3.0) Basophils (%) (Auto) 1.8 % (0.0-2.0) Sodium Level 139 MMOL/L (136-145) Potassium Level 4.6 MMOL/L (3.5-5.1) Chloride Level 103 MMOL/L (98-107) Carbon Dioxide Level 31 MMOL/L (21-32) Anion Gap 6 mmol/L (5-15) Blood Urea Nitrogen 27 mg/dL (7-18) Creatinine 1.2 MG/DL (0.55-1.30) Estimat Glomerular Filtration Rate > 60 mL/min (>60) Glucose Level 90 MG/DL (74-106) Calcium Level 8.8 MG/DL (8.5-10.1) Magnesium Level 1.7 MG/DL (1.8-2.4) Height (Feet): 5 Height (Inches): 9.00 Weight (Pounds): 204 Objective Vitals: reviewed General: NAD Neck: supple Chest: clear breath sounds bilaterally noted crackles+++ Cardiovascular: RRR, no s3, s4 Abdomen: soft, nontender, nd Extremities: n1+ edema, normal range of motion Mental: alert Labs: noted Mihai Jean MD Aug 20, 2019 06:33
[2019-08-20 08:00] VITALS: BP 126/84
--- NOTE | 2019-08-20 08:01 | NUR ---
HAND OFF: Report given to GENTRY Lucero.
--- NOTE | 2019-08-20 08:02 | NUR ---
NURSE NOTES: Received pt in bed, AAO x4. On NC 3/min. No c/o of distress/pain at this moment. IV on RFA 22g noted. Side rails x 2. Bed in the lowest and locked. Call light within reach. Will continue to monitor
[2019-08-20] MEDS: Lisinopril 10mg tab ORAL SCH (09:00)
[2019-08-20] MEDS: Spironolactone 25mg tab ORAL SCH (09:40)
--- NOTE | 2019-08-20 09:40 | NUR ---
*-* MEDICARE APPEAL *-* NE AGREES WITH TERMINATION OF HOSPITAL SERVICES BENEFICIARY LIABILITY START ON 08/19/2019
[2019-08-20] MEDS: Carvedilol 6.25mg Tab ORAL SCH (09:41)
[2019-08-20] MEDS: Aspirin Baby 81mg ORAL SCH (09:41)
[2019-08-20] MEDS: Augmentin 875mg Tab ORAL SCH (09:42)
[2019-08-20] MEDS: Digoxin 0.125mg tab ORAL SCH (09:42)
--- NOTE | 2019-08-20 10:15 | General Progress Note ---
Assessment/Plan Assessment/Plan: (1) CHF (2) Chest pain (3) Peripheral neuropathy Patient will be continued on Tramadol. D/w Dr. Renteria and he concurred. Subjective Date patient seen: Aug 20, 2019 Time patient seen: 10:00 - am Allergies: Coded Allergies: SIMVASTATIN (Verified Allergy, Unknown, 07/03/19) Uncoded Allergies: STATINS (Allergy, Unknown, 08/13/19) Subjective Constitutional: Reports: no symptoms HEENT: Reports: no symptoms Cardiovascular: Reports: no symptoms Respiratory: Reports: no symptoms Gastrointestinal/Abdominal: Reports: no symptoms Genitourinary: Reports: no symptoms Neurologic/Psychiatric: Reports: no symptoms Endocrine: Reports: no symptoms Hematologic/Lymphatic: Reports: no symptoms Subjective Patient doing well with no new complaints Objective Last 24 Hour Vital Signs Date Time Temp Pulse Resp B/P (MAP) Pulse Ox O2 Delivery O2 Flow Rate FiO2 08/20/19 09:42 82 08/20/19 09:41 82 126/84 08/20/19 08:19 Nasal Cannula 3.0 Nasal Cannula 3.0 08/20/19 08:00 97.6 82 20 126/84 (98) 99 08/20/19 00:00 98.2 68 20 118/75 (89) 100 08/19/19 21:04 94 106/74 08/19/19 21:00 Nasal Cannula 3.0 Nasal Cannula 3.0 08/19/19 15:33 98.2 89 19 115/76 (89) 99 08/19/19 12:18 87 93/64 08/19/19 12:17 93/64 08/19/19 11:39 97.6 87 21 93/64 (74) 98 Intake and Output 08/19/19 08/20/19 19:00 07:00 Intake Total 1440 ml Output Total 500 ml 400 ml Balance 940 ml -400 ml Intake Oral 1440 ml Output Urine Total 500 ml 400 ml Height (Feet): 5 Height (Inches): 9.00 Weight (Pounds): 206 Objective General Appearance: no apparent distress, alert EENT: PERRL/EOMI, normal ENT inspection Neck: non-tender, normal alignment Cardiovascular: normal rate, regular rhythm Respiratory/Chest: decreased breath sounds Abdomen: non tender, soft Extremities: non-tender Edema: trace edema Neurologic: alert, oriented x 3 Tremayne Fenton Aug 20, 2019 10:15
--- NOTE | 2019-08-20 11:10 | Pulmonology Progress Note ---
Assessment/Plan Assessment/Plan IMPRESSION: 1. CHF. 2. Chest pain. 3. Troponin leak. DISCUSSION: I will continue oxygen and pulmonary hygiene. Continue home medications. okay to discharge Subjective Interval Events: None new Constitutional: Reports: no symptoms HEENT: Repors: no symptoms Respiratory: Reports: no symptoms Allergies: Coded Allergies: SIMVASTATIN (Verified Allergy, Unknown, 07/03/19) Uncoded Allergies: STATINS (Allergy, Unknown, 08/13/19) Objective Last 24 Hour Vital Signs Date Time Temp Pulse Resp B/P (MAP) Pulse Ox O2 Delivery O2 Flow Rate FiO2 08/20/19 09:42 82 08/20/19 09:41 82 126/84 08/20/19 08:19 Nasal Cannula 3.0 Nasal Cannula 3.0 08/20/19 08:00 97.6 82 20 126/84 (98) 99 08/20/19 00:00 98.2 68 20 118/75 (89) 100 08/19/19 21:04 94 106/74 08/19/19 21:00 Nasal Cannula 3.0 Nasal Cannula 3.0 08/19/19 15:33 98.2 89 19 115/76 (89) 99 08/19/19 12:18 87 93/64 08/19/19 12:17 93/64 08/19/19 11:39 97.6 87 21 93/64 (74) 98 Intake and Output 08/19/19 08/20/19 19:00 07:00 Intake Total 1440 ml Output Total 500 ml 400 ml Balance 940 ml -400 ml Intake Oral 1440 ml Output Urine Total 500 ml 400 ml General Appearance: no acute distress HEENT: normocephalic Respiratory/Chest: chest wall non-tender Cardiovascular: normal peripheral pulses Abdomen: normal bowel sounds Current Medications Medications (Trade) Dose Ordered Sig/Marybeth Route PRN Reason Start Time Stop Time Status Last Admin Dose Admin Acetaminophen (Tylenol) 650 mg Q4H PRN ORAL Mild Pain/Temp > 100.5 08/17/19 19:03 09/16/19 19:02 08/20/19 09:41 Amoxicillin/ Clavulanate Potassium (Augmentin) 875 mg EVERY 12 HOURS ORAL 08/17/19 21:00 08/25/19 20:59 08/20/19 09:42 Aspirin (ASA) 81 mg DAILY ORAL 08/18/19 09:00 5/8/20 08:59 08/20/19 09:41 Atorvastatin Calcium (Lipitor) 40 mg BEDTIME ORAL 08/17/19 21:00 11/12/19 20:59 08/19/19 21:03 Carvedilol (Coreg) 6.25 mg EVERY 12 HOURS ORAL 08/17/19 21:00 09/13/19 08:59 08/20/19 09:41 Digoxin (Lanoxin) 0.125 mg DAILY ORAL 08/18/19 09:00 11/12/19 08:59 08/20/19 09:42 Ferrous Sulfate (Feosol) 325 mg THREE TIMES A DAY ORAL 08/18/19 09:00 11/15/19 08:59 08/20/19 09:41 Furosemide (Lasix) 20 mg DAILY ORAL 08/20/19 09:00 09/17/19 08:59 08/20/19 09:41 Lisinopril (ZestriL) 5 mg DAILY ORAL 08/18/19 09:00 09/13/19 08:59 08/19/19 12:17 Multi-Ingredient Ointment (Eucerin) 1 applic THREE TIMES A DAY PRN TOPIC Itching/Pruritis 08/19/19 16:30 11/17/19 16:29 08/19/19 18:09 Pantoprazole (Protonix) 40 mg DAILY ORAL 08/18/19 09:00 09/13/19 06:29 08/20/19 09:41 Spironolactone (Aldactone) 25 mg DAILY ORAL 08/18/19 09:00 09/13/19 12:14 08/20/19 09:40 Tramadol HCl (Ultram) 50 mg Q6H PRN ORAL severe pain 08/17/19 19:04 08/24/19 19:03 08/19/19 22:14 Frank Baca MD Aug 20, 2019 11:10
[2019-08-20 12:00] VITALS: BP 108/74
--- NOTE | 2019-08-20 12:13 | NUR ---
DISCHARGE PLANNED: PATIENT HAS BEEN ACCEPTED TO [facility] P:[phone] CONFIRMED BY MARGOT MARGOT WILL CALL PATIENT IN AM REGARDING F/U CARE
--- NOTE | 2019-08-20 13:00 | Infectious Diseases Prog Note ---
Assessment/Plan Assessment/Plan IMPRESSION: Stasis dermatitis, may have mild nonpurulent cellulitis. Congestive heart failure and cardiomyopathy with EF=15% Anemia, Thrombocytopenia, Pulmonary hypertension, COPD. Elevated troponin RECOMMENDATION: Discontinue Augmentin Agree with discharge Subjective ROS Limited/Unobtainable: No Constitutional: Reports: no symptoms Respiratory: Reports: shortness of breath, productive cough Gastrointestinal/Abdominal: Reports: no symptoms Genitourinary: Reports: no symptoms Allergies: Coded Allergies: SIMVASTATIN (Verified Allergy, Unknown, 07/03/19) Uncoded Allergies: STATINS (Allergy, Unknown, 08/13/19) Objective Vital Signs Last 24 Hour Vital Signs Date Time Temp Pulse Resp B/P (MAP) Pulse Ox O2 Delivery O2 Flow Rate FiO2 08/20/19 12:00 97.8 86 20 108/74 (85) 100 08/20/19 09:42 82 08/20/19 09:41 82 126/84 08/20/19 08:19 Nasal Cannula 3.0 Nasal Cannula 3.0 08/20/19 08:00 97.6 82 20 126/84 (98) 99 08/20/19 00:00 98.2 68 20 118/75 (89) 100 08/19/19 21:04 94 106/74 08/19/19 21:00 Nasal Cannula 3.0 Nasal Cannula 3.0 08/19/19 15:33 98.2 89 19 115/76 (89) 99 Height (Feet): 5 Height (Inches): 9.00 Weight (Pounds): 206 General Appearance: no acute distress HEENT: mucous membranes moist Respiratory/Chest: lungs clear Cardiovascular: normal rate Abdomen: other - soft, obese Extremities: other - legs edema Skin: other - hyperpigmentation of legs Neurologic/Psychiatric: alert, oriented x 3, responsive Current Medications Medications (Trade) Dose Ordered Sig/Marybeth Route PRN Reason Start Time Stop Time Status Last Admin Dose Admin Acetaminophen (Tylenol) 650 mg Q4H PRN ORAL Mild Pain/Temp > 100.5 08/17/19 19:03 09/16/19 19:02 08/20/19 09:41 Amoxicillin/ Clavulanate Potassium (Augmentin) 875 mg EVERY 12 HOURS ORAL 08/17/19 21:00 08/25/19 20:59 08/20/19 09:42 Aspirin (ASA) 81 mg DAILY ORAL 08/18/19 09:00 09/28/19 08:59 08/20/19 09:41 Atorvastatin Calcium (Lipitor) 40 mg BEDTIME ORAL 08/17/19 21:00 11/12/19 20:59 08/19/19 21:03 Carvedilol (Coreg) 6.25 mg EVERY 12 HOURS ORAL 08/17/19 21:00 09/13/19 08:59 08/20/19 09:41 Digoxin (Lanoxin) 0.125 mg DAILY ORAL 08/18/19 09:00 11/12/19 08:59 08/20/19 09:42 Ferrous Sulfate (Feosol) 325 mg THREE TIMES A DAY ORAL 08/18/19 09:00 11/15/19 08:59 08/20/19 09:41 Furosemide (Lasix) 20 mg DAILY ORAL 08/20/19 09:00 09/17/19 08:59 08/20/19 09:41 Lisinopril (ZestriL) 5 mg DAILY ORAL 08/18/19 09:00 09/13/19 08:59 08/19/19 12:17 Multi-Ingredient Ointment (Eucerin) 1 applic THREE TIMES A DAY PRN TOPIC Itching/Pruritis 08/19/19 16:30 11/17/19 16:29 08/19/19 18:09 Pantoprazole (Protonix) 40 mg DAILY ORAL 08/18/19 09:00 09/13/19 06:29 08/20/19 09:41 Spironolactone (Aldactone) 25 mg DAILY ORAL 08/18/19 09:00 09/13/19 12:14 08/20/19 09:40 Tramadol HCl (Ultram) 50 mg Q6H PRN ORAL severe pain 08/17/19 19:04 08/24/19 19:03 08/19/19 22:14 Carmelo Canada MD Aug 20, 2019 13:00
--- NOTE | 2019-08-20 13:28 | Cardiology Progress Note ---
Assessment/Plan Assessment/Plan 1. Slight elevation of troponin I level due to myocardial necrosis, deferring cardiac cath once COVID-19 outbreak is over. 2. Acute on chronic combined systolic and diastolic congestive heart failure, continue the current therapy. 3. History of hypertension. 4. Moderate pulmonary hypertension due to left heart failure. 5. Small pericardial effusion, likely due to element of right heart failure. 6. History of chronic kidney disease, creat at 1.2 7. Non-sustained ventricular tachycardia, Mg oxide given. Mg level at 1.7. Subjective Subjective Transferred to the med-surg unit. No cardiac events reported. Objective Last 24 Hour Vital Signs Date Time Temp Pulse Resp B/P (MAP) Pulse Ox O2 Delivery O2 Flow Rate FiO2 08/20/19 12:00 97.8 86 20 108/74 (85) 100 08/20/19 09:42 82 08/20/19 09:41 82 126/84 08/20/19 08:19 Nasal Cannula 3.0 Nasal Cannula 3.0 08/20/19 08:00 97.6 82 20 126/84 (98) 99 08/20/19 00:00 98.2 68 20 118/75 (89) 100 08/19/19 21:04 94 106/74 08/19/19 21:00 Nasal Cannula 3.0 Nasal Cannula 3.0 08/19/19 15:33 98.2 89 19 115/76 (89) 99 Intake and Output 08/19/19 08/20/19 19:00 07:00 Intake Total 1440 ml Output Total 500 ml 400 ml Balance 940 ml -400 ml Intake Oral 1440 ml Output Urine Total 500 ml 400 ml 2D Echo: DCM, LVEF 15%, Restricitve LV physio, Gloabl LV HK, RAP 15, RVSP 53, Mod MR Objective HEENT: Atraumatic and normocephalic. Anicteric. Pupils are equal, round, and reactive to light and accommodation. Extraocular muscles are intact. NECK: JVP elevated at about 10 to 12 cm. No carotid bruits. Carotid upstrokes 2+ bilaterally. CARDIOVASCULAR: Normal S1 and S2. Regular rate and rhythm. Positive S3. A 2/6 holosystolic murmur at xiphoid area. LUNGS: Bibasilar crackles. ABDOMEN: Soft, nontender, and nondistended. No hepatosplenomegaly. Positive bowel sounds. EXTREMITIES: There is 1+ bilateral lower extremity edema. Spenser Fitzpatrick MD Aug 20, 2019 13:28
[2019-08-20] MEDS ORDERED: Magnesium Oxide 400mg tab ORAL SCH (13:30)
--- NOTE | 2019-08-20 14:09 | NUR ---
*-*INSURANCE*-* ALL CLINICALS AND REVIEWS FAXED TO: [employer] P: [phone] F: [phone] & [employer] ([employer]) P: [phone] F: [phone]
--- NOTE | 2019-08-20 14:20 | NUR ---
CASE MANAGEMENT:REVIEW 08/18/19 SI: AC/CHR CHF. PERICARDIAL EFFUSION MYOCARDIAL NECROSIS 98.1 100 18 120/70 97% ON 2L/NC H/H 10.4/32.2 PLT 108 BUN 27 MG 1.7 IS: AUGMENTIN PO Q12 MAG-OX PO BID FEOSOL PO TID DIGOXIN PO QD COREG PO Q12 PROTONIX PO QD LASIX PO QD ALDACTONE PO QD LIPITOR PO QHS LISINOPRIL PO QD ASA PO QD \:3E MED SURG STATUS DCP: FROM HOME PLAN: APPEAL DC CASE MANAGEMENT:REVIEW 08/19/19 SI: AC/CHR CHF. PERICARDIAL EFFUSION MYOCARDIAL NECROSIS 98.2 89 19 115/76 99% ON 3L/NC IS: AUGMENTIN PO Q12 MAG-OX PO BID FEOSOL PO TID DIGOXIN PO QD COREG PO Q12 PROTONIX PO QD LASIX PO QD ALDACTONE PO QD LIPITOR PO QHS LISINOPRIL PO QD ASA PO QD \:3E MED SURG STATUS DCP: FROM HOME PLAN: APPEAL DC CASE MANAGEMENT:REVIEW 08/20/19 SI: AC/CHR CHF. PERICARDIAL EFFUSION MYOCARDIAL NECROSIS 97.6 82 20 126/84 99% ON 3L/NC IS: AUGMENTIN PO Q12 MAG-OX PO BID FEOSOL PO TID DIGOXIN PO QD COREG PO Q12 PROTONIX PO QD LASIX PO QD ALDACTONE PO QD LIPITOR PO QHS LISINOPRIL PO QD ASA PO QD \:3E MED SURG STATUS DCP: FROM HOME PLAN: INFORMED PATIENT APPEAL DENIED PATIENT TO DC TODAY
--- NOTE | 2019-08-20 15:34 | NUR ---
NURSE NOTES: Patient is discharged to home via bus in stable condition. Tap card was given to patient. ID and IV was removed. No s/s of infection on the removal site. Belongings were accounted and given to patient. Patient was discharged with home health. CM and patient made aware. 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
--- NOTE | 2019-08-21 10:06 | Discharge Summary ---
Discharge Summary Discharge Summary _ DATE OF ADMISSION: 08/13/2019 DATE OF DISCHARGE: 08/20/2019 DISCHARGED BY: Dr. Blair REASON FOR ADMISSION: 54 years old male with past medical history of COPD, congestive heart failure, hypertension, presented to emergency department with midsternal chest pain. Vital signs were stable. Laboratory work-up revealed no leukocytosis,, hemoglobin 10.6 hematocrit 34.2, platelet count 93. Glucose 80. BUN 20, creatinine 1.2. Stable electrolytes. Stable LFT. Troponin 0.061, pro-BNP 5087. EKG revealed sinus rhythm with nonspecific ST- T wave changes. Chest x-ray demonstrated cardiomegaly and mild congestion. Patient subsequently admitted for elevated troponin and congestive heart failure CONSULTANTS: community health program representative Dr. Fitzpatrick pulmonary Dr. Baca ID specialist Dr. Carmelo Canada improvement specialist/oncologist Dr. Jean pain specialist Dr. Renteria HOSPITAL COURSE: Patient admitted to monitored floor. Second troponin negative, the third troponin -0.057. According to community health program representative, elevation of troponin was due to myocardial necrosis. Cardiac catheterization was deferred until COVID 19 outbreak over. On prior admission in June 2019, patient was diagnosed with new onset of dilated cardiomyopathy seen on echocardiogram with severe left ventricular systolic dysfunction and ejection fraction of 15% , which dropped from 55%, seen in 2014. Patient started on guideline directed medical therapy for congestive heart failure. At that time patient was recommended cardiac catheterization, but patient declined. Patient also declined LifeVest. Patient was aware of consequences of noncompliance. Guideline directed medical therapy for congestive heart failure was optimized during the hospital stay, and included beta-david, THO inhibitor ,digoxin , Lasix, and Aldactone. Volumes and cardiorenal parameters were closely monitored. Patient was counseled on compliance with medication regimen as outpatient. Patient had episodes of nonsustained ventricular tachycardia. Magnesium level was 1.6. Magnesium was replaced. Antiplatelet therapy with aspirin and statin continued. Supplemental oxygen provided and titrated to keep pulse oximetry above 92%. Nebulizing treatment with bronchodilator provided as needed. Pulse extremity was stable on room air. Hemoglobin and hematocrit were closely monitored with goal to keep hemoglobin above 7. Anemia work-up revealed evidence of anemia of iron deficiency with ferritin 27. Patient received Venofer IV and then started oral ferrous sulfate. Prior to discharge hemoglobin 10.4 , hematocrit 22.2. Platelet count was closely monitored . Previous abdominal ultrasound revealed splenomegaly. Peripheral smear was evaluated for blasts/ schistocytes , and none was noted. Platelet count trending up and prior to discharge 108. Pain management was addressed as per pain specialist. Patient exhibited status dermatitis with mild nonpurulent cellulitis. Patient received Augmentin while in the hospital. Patient clinically stabilized and was ready for discharge. Patient will need cardiac catheterization after COVID 19 outbreak over. Patient to follow-up with community health program representative for management of CHF. FINAL DIAGNOSES: Acute on chronic combined systolic and diastolic congestive heart failure Cardiomyopathy with ejection fraction 15% Slight elevation of troponin secondary to myocardial necrosis Hypertension Moderate pulmonary hypertension COPD Anemia Thrombocytopenia Chronic kidney disease Nonsustained ventricular tachycardia Stasis dermatitis with mild nonpurulent cellulitis Peripheral neuropathy DISCHARGE MEDICATIONS: See Medication Reconciliation list. DISCHARGE INSTRUCTIONS: Patient was discharged home. Patient to follow-up with community health program representative as outpatient. Follow-up with a primary care provider in 1 week. I have been assigned to dictate discharge summary for this account. I was not involved in the patient's management. Hattie Fox NP Aug 21, 2019 10:06
--- NOTE | 2019-08-22 11:33 | NUR ---
*-*INSURANCE*-* DISCHARGE SUMMARY HAS BEEN FAXED TO: [facility] P: [phone] F: [phone] & [facility] [employer] ([employer]OFESSION[employer]) P: [phone] F: [phone]
== END 2019-08-20 15:38 | disposition home health service (06) | DRG 194 ==
LOC: EDBD 14:03 → EMR 14:15 → 2E 17:35 → EDBEDREQ 20:37 → 3E 08-17 19:01
DX: I13.0 Hypertensive heart and chronic kidney disease with heart failure and stage 1 through stage 4 chronic kidney disease, or unspecified chronic kidney disease (principal); N17.9 Acute kidney failure, unspecified; I42.0 Dilated cardiomyopathy; D69.6 Thrombocytopenia, unspecified; I50.43 Acute on chronic combined systolic (congestive) and diastolic (congestive) heart failure; N18.9 Chronic kidney disease, unspecified; L03.116 Cellulitis of left lower limb; I87.2 Venous insufficiency (chronic) (peripheral); I25.2 Old myocardial infarction; I47.2 Ventricular tachycardia; D50.9 Iron deficiency anemia, unspecified; G62.9 Polyneuropathy, unspecified; I27.29 Other secondary pulmonary hypertension; J18.9 Pneumonia, unspecified organism; J44.0 Chronic obstructive pulmonary disease with (acute) lower respiratory infection; Z87.891 Personal history of nicotine dependence
CPT/HCPCS: 36415; 71045; 80048; 80053; 80061; 82378; 82607; 82728; 82746; 82977; 83036; 83540; 83550; 83735; 83880; 84100; 84443; 84484; 84550; 85007; 85025; 86140; 93005; 99283; 99285

== ENCOUNTER 2019-08-20 16:23 | Emergency (ER) | payer MEDICARE, MEDICAID ==
[~2019-08-20] VITALS: Ht 167.6 cm; Wt 86.2 kg
[~2019-08-20 16:23] MED LIST changes: +APRESOLINE10 MG ORAL; +ASPIRIN81 M3 PO; +AUGMENTIN 875-1 EAC1 ORAL; +COREG6.25 MG ORAL; +DIGOXIN0.125 MG/2 ORAL; +FUROSEMIDE40 MG ORAL; +LIPITOR40 MG ORAL; +LISINOPRIL5 MG ORAL; +PROTONIX40 M2 GT
[2019-08-20 16:35] VITALS: BP 119/75
--- NOTE | 2019-08-20 16:43 | Emergency Room Report ---
History of Present Illness General Chief Complaint: Upper Respiratory Illness Source: Patient Present Illness HPI Patient presents with complaints of shortness of breath reports that he was discharged in the hospital and walking to the bus stop He became more short of breath and felt lightheaded Patient walks back to the emergency room requesting evaluation denies any headache denies any chest pain He reports that after sitting down for a few seconds he does feel better Denies any pleurisy denies any cough Allergies: Coded Allergies: SIMVASTATIN (Verified Allergy, Unknown, 07/03/19) Uncoded Allergies: STATINS (Allergy, Unknown, 08/13/19) COVID-19 Screening Contact w/high risk pt: No Recent Travel to affected area: No Experienced COVID-19 symptoms?: Yes COVID-19 symptoms experienced: Shortness of Breath Patient History Past Medical History: see triage record Reviewed Nursing Documentation: PMH: Agreed; PSxH: Agreed Nursing Documentation-PMH Hx Cardiac Problems: Yes - CHF, ACS Hx Hypertension: Yes Hx Cancer: No Hx Gastrointestinal Problems: No Hx Neurological Problems: No Review of Systems All Other Systems: negative except mentioned in HPI Physical Exam Vital Signs Date Time Temp Pulse Resp B/P (MAP) Pulse Ox O2 Delivery O2 Flow Rate FiO2 08/20/19 16:19 97.9 93 18 119/75 (90) 92 Room Air Sp02 EP Interpretation: reviewed, normal General Appearance: well appearing, no apparent distress Head: normocephalic, atraumatic Eyes: bilateral eye PERRL, bilateral eye EOMI ENT: hearing grossly normal, normal pharynx, TMs + canals normal, uvula midline Neck: full range of motion, supple, no meningismus, no bony tend Respiratory: lungs clear, normal breath sounds, no rhonchi, no respiratory distress, no retraction, no accessory muscle use Cardiovascular #1: normal peripheral pulses, regular rate, rhythm, no edema, no gallop, no JVD, no murmur Gastrointestinal: normal bowel sounds, non tender, soft, no mass, no organomegaly, non-distended, no guarding, no hernia, no pulsatile mass, no rebound Genitourinary: no CVA tenderness Musculoskeletal: normal inspection Neurologic: motor strength/tone normal, chemical maker III-XII nml as tested, oriented x3 , sensory intact, responsive Psychiatric: mood/affect normal Skin: no rash Lymphatic: normal inspection, no adenopathy Medical Decision Making Diagnostic Impression: Primary Impression: Cardiomyopathy Additional Impressions: Pulmonary HTN CHF (congestive heart failure) ER Course Patient is a fairly complex patient with multiple differential to consideration including but not limited to cardiac cardiopulmonary and vascular emergencies Patient has review of medical records had fairly extensive inpatient stay and evaluation patient does have significant comorbidities including 15% EF At the time of my evaluation, patient is hemodynamically stable EKG is normal And consistent with his recent EKG Patient was discussed regarding disposition and he is agreeable if he receives a taxi voucher To attempt outpatient follow-up EKG Diagnostic Results Rate: normal Rhythm: NSR ST Segments: other - Nonspecific ST and T wave changes Rhythm Strip Diag. Results EP Interpretation: yes Rate: 77 Rhythm: NSR, no PVC's, no ectopy Last Vital Signs Date Time Temp Pulse Resp B/P (MAP) Pulse Ox O2 Delivery O2 Flow Rate FiO2 08/20/19 16:19 97.9 93 18 119/75 (90) 92 Room Air Status: improved Disposition: HOME, SELF-CARE Condition: Stable Referrals: [facility] Comp. 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 You do have multiple comorbidities including significant cardiac disease. However after extended hospitalization it was felt that you had no further emergency, presentation, EKG has been repeated at this time. Your vitals remained stable and requires improved outpatient care Felisa Sharif DO Aug 20, 2019 16:43
[2019-08-20 16:47] VITALS: BP 119/75
== END 2019-08-20 16:47 | disposition home or self-care (01) ==
LOC: EDBD 16:23 → EMR 16:35
DX: I42.9 Cardiomyopathy, unspecified (principal); I27.20 Pulmonary hypertension, unspecified; I11.0 Hypertensive heart disease with heart failure; I50.9 Heart failure, unspecified; Z88.8 Allergy status to other drugs, medicaments and biological substances
CPT/HCPCS: 93005; 99283

== ENCOUNTER 2019-10-11 15:57 | Inpatient (IN) | payer MEDICARE, MEDICAID ==
[~2019-10-11] VITALS: Ht 167.6 cm; Wt 103.9 kg
--- NOTE | 2019-10-11 16:17 | Emergency Room Report ---
History of Present Illness General Chief Complaint: Dyspnea/Respdistress Source: Patient Present Illness HPI Disclaimer: Please note that this report is being documented using DRAGON technology. This can lead to erroneous entry secondary to incorrect interpretation by the dictating instrument. HPI: 54-year-old male history of congestive heart failure reduced ejection fraction presents for evaluation of shortness of breath. He was discharged from [facility] approximately 2 hours ago and felt short of breath while sitting outside on a bench. Reports mild diffuse chest pain which he states is typical for him. He also notes lower extremity edema but also scrotal edema which has been present for the past few weeks. States he was supposed to see a administrative medical director at [facility] but never did prior to discharge. Tested negative for COVID during his recent hospital stay according to patient. Denies fever, chills, productive cough. He notes a nonproductive cough which also is chronic. PMH: CHF with reduced ejection fraction, cardiomyopathy, HTN, COPD PSH: Reviewed Allergies: Simvastatin Social Hx: Reviewed Allergies: Coded Allergies: SIMVASTATIN (Verified Allergy, Unknown, 07/03/19) Uncoded Allergies: STATINS (Allergy, Unknown, 08/13/19) COVID-19 Screening Contact w/high risk pt: No Recent Travel to affected area: No Experienced COVID-19 symptoms?: Yes COVID-19 symptoms experienced: Shortness of Breath COVID-19 Testing performed PILLOWCASE MAKER: No COVID-19 Screening: Negative COVID-19 Nursing Documentation-PMH Hx Hypertension: Yes Hx Cancer: No Hx Gastrointestinal Problems: No Hx Neurological Problems: No Review of Systems All Other Systems: negative except mentioned in HPI Physical Exam Vital Signs Date Time Temp Pulse Resp B/P (MAP) Pulse Ox O2 Delivery O2 Flow Rate FiO2 10/11/19 15:52 98.2 115 16 128/87 (101) 94 Room Air General: Awake and alert, no acute distress HEENT: NC/AT. EOMI. Cardiovascular: Tachycardic. S1 and S2 normal. No murmur appreciated Resp: Normal work of breathing. No cough, wheezing or crackles appreciated Abdomen: Abdomen is soft, nondistended. Nontender : Scrotal edema, no tenderness, no overlying erythema, no skin breakdown Skin: Intact. No abrasions, laceration or rash over the exposed skin MSK: Normal tone and bulk. Moving all extremities. No obvious deformity. Tense edema in the lower extremities bilaterally to the knees Neuro: Awake and alert. Mentating appropriately. Medical Decision Making Diagnostic Impression: Primary Impression: Cardiomyopathy Additional Impression: CHF exacerbation ER Course 34-year-old male with a history of CHF presents for evaluation of shortness of breath. Recently tested negative for COVID-19 at his hospitalization at [facility] where he left several hours ago. Differential includes is not limited to CHF exacerbation, COPD, kidney failure, pulmonary edema, pleural effusion to name a few. Patient is tachycardic and shows signs of lower extremity edema as well as scrotal edema. Consistent with CHF exacerbation as he has had admissions for this in the past. Will give Lasix, check broad labs, chest x- ray and EKG. Patient was saturating 94% on room air but has a history of COPD and this is likely within his baseline. No distress at this time. Laboratory Tests Test 10/11/19 16:15 White Blood Count 6.9 K/UL (4.8-10.8) Red Blood Count 3.49 M/UL (4.70-6.10) L Hemoglobin 10.6 G/DL (14.2-18.0) L Hematocrit 35.7 % (42.0-52.0) L Mean Corpuscular Volume 102 FL (80-99) H Mean Corpuscular Hemoglobin 30.3 PG (27.0-31.0) Mean Corpuscular Hemoglobin Concent 29.6 G/DL (32.0-36.0) L Red Cell Distribution Width 17.1 % (11.6-14.8) H Platelet Count 98 K/UL (150-450) L Mean Platelet Volume 8.3 FL (6.5-10.1) Neutrophils (%) (Auto) 75.0 % (45.0-75.0) Lymphocytes (%) (Auto) 11.1 % (20.0-45.0) L Monocytes (%) (Auto) 11.4 % (1.0-10.0) H Eosinophils (%) (Auto) 1.4 % (0.0-3.0) Basophils (%) (Auto) 1.2 % (0.0-2.0) Sodium Level 142 MMOL/L (136-145) Potassium Level 4.3 MMOL/L (3.5-5.1) Chloride Level 100 MMOL/L (98-107) Carbon Dioxide Level 33 MMOL/L (21-32) H Anion Gap 9 mmol/L (5-15) Blood Urea Nitrogen 24 mg/dL (7-18) H Creatinine 1.3 MG/DL (0.55-1.30) Estimated Glomerular Filtration Rate > 60 mL/min (>60) Glucose Level 103 MG/DL (74-106) Calcium Level 9.0 MG/DL (8.5-10.1) Total Bilirubin 0.9 MG/DL (0.2-1.0) Aspartate Amino Transferase (AST) 32 U/L (15-37) Alanine Aminotransferase (ALT) 18 U/L (12-78) Alkaline Phosphatase 89 U/L (46-116) Troponin I 0.046 ng/mL (0.000-0.056) Pro-B-Type Natriuretic Peptide 4235 pg/mL (0-125) H Total Protein 7.1 G/DL (6.4-8.2) Albumin 3.7 G/DL (3.4-5.0) Globulin 3.4 g/dL Albumin/Globulin Ratio 1.1 (1.0-2.7) EKG Diagnostic Results EKG Time: 16:33 Rate: normal Rhythm: NSR ST Segments: no acute changes Other Impression No discernible P waves, possible atrial flutter, nonspecific T wave changes Rhythm Strip Diag. Results Rhythm Strip Time: 16:33 EP Interpretation: yes Rate: 115 Rhythm: no PVC's, no ectopy Chest X-Ray Diagnostic Results Chest X-Ray Diagnostic Results : Chest X-Ray Ordered: Yes # of Views/Limited/Complete: 1 View Indication: Shortness of Breath EP Interpretation: Yes Interpretation: other - Significant cardiomegaly, bilateral signs of pulmonary congestion Impression: Other Electronically Signed by: Electronically signed by Dr. Renato Mon Reevaluation Time: 18:38 Last Vital Signs Date Time Temp Pulse Resp B/P (MAP) Pulse Ox O2 Delivery O2 Flow Rate FiO2 10/11/19 15:52 98.2 115 16 128/87 (101) 94 Room Air Reevaluation Impression EKG nonischemic. Chest x-ray concerning for significant cardiomegaly and signs of pulmonary edema. BNP elevated consistent with CHF exacerbation and the patient history of cardiomyopathy. Was given Lasix patient is diuresing. Remains tachycardic. Will require admission. Admitted to panel physician on telemetry. Disposition: ADMITTED INPATIENT Condition: Serious Renato Mon MD October 11, 2019 16:17
[2019-10-11 16:19] VITALS: BP 128/87
[2019-10-11 16:41] LABS: HEMATOCRIT 35.7 % (42.0-52.0); HEMOGLOBIN 10.6 G/DL (14.2-18.0); MEAN CORPUSCULAR VOLUME 102 FL (80-99); PLATELET COUNT 98 K/UL (150-450); RED BLOOD COUNT 3.49 M/UL (4.70-6.10); RED CELL DISTRIBUTION WIDTH 17.1 % (11.6-14.8); WHITE BLOOD COUNT 6.9 K/UL (4.8-10.8)
[2019-10-11 16:44] LABS: BASOPHILS % (AUTO) 1.2 % (0.0-2.0); EOSINOPHILS % (AUTO) 1.4 % (0.0-3.0); LYMPHOCYTES % (AUTO) 11.1 % (20.0-45.0); MONOCYTES % (AUTO) 11.4 % (1.0-10.0)
--- NOTE | 2019-10-11 16:46 | Diagnostic Imaging Report ---
Procedure: XRAY Chest 1v Reason for study: Reason For Exam: SOB Comparison films: 08/13/2019. FINDINGS: A single one view chest is obtained. There is central vascular prominence. Hazy density right lung base, infiltrate versus early edema. Massive cardiomegaly is unchanged. Linear atelectasis left midlung. No large effusion seen. The bony thorax appear unremarkable. IMPRESSION: Vascular congestion. Hazy densities right lung base either infiltrates or early edema. Left midlung atelectasis. Massive cardiomegaly.
[2019-10-11 17:03] LABS: ANION GAP 9 mmol/L (5-15); BLOOD UREA NITROGEN 24 mg/dL (7-18); CARBON DIOXIDE 33 MMOL/L (21-32); CHLORIDE 100 MMOL/L (98-107); CREATININE 1.3 MG/DL (0.55-1.30); POTASSIUM 4.3 MMOL/L (3.5-5.1); SODIUM 142 MMOL/L (136-145)
[2019-10-11 17:14] LABS: ALANINE AMINOTRANSFERASE 18 U/L (12-78); ALBUMIN 3.7 G/DL (3.4-5.0); ALBUMIN/GLOBULIN RATIO 1.1 (1.0-2.7); ALKALINE PHOSPHATASE 89 U/L (46-116); ASPARTATE AMINO TRANSFERASE 32 U/L (15-37); BILIRUBIN,TOTAL 0.9 MG/DL (0.2-1.0)
[2019-10-11 18:34] VITALS: BP 134/85
[2019-10-11] MEDS ORDERED: Ketorolac 30mg Inj IV ONE (19:45)
[2019-10-11 19:48] VITALS: BP 124/92
[2019-10-11] MEDS ORDERED: Miralax 17gm pkt ORAL PRN (21:00)
[2019-10-11 21:30] VITALS: BP 123/95
[2019-10-11] MEDS: Albuterol/Ipratropium 3ml neb HHN PRN (21:46)
[2019-10-11] MEDS: Carvedilol 6.25mg Tab ORAL SCH (22:20)
[2019-10-11] MEDS: HydrALAZINE 10mg Tab ORAL SCH (22:21)
[2019-10-12] VITALS: BP 109/67
[2019-10-12 04:00] VITALS: BP 106/75
[2019-10-12] MEDS: HydrALAZINE 10mg Tab ORAL SCH ×3 (05:56→22:33)
[2019-10-12 06:35] LABS: HEMATOCRIT 33.1 % (42.0-52.0); HEMOGLOBIN 10.8 G/DL (14.2-18.0); MEAN CORPUSCULAR VOLUME 94 FL (80-99); PLATELET COUNT 92 K/UL (150-450); RED BLOOD COUNT 3.51 M/UL (4.70-6.10); RED CELL DISTRIBUTION WIDTH 15.9 % (11.6-14.8); WHITE BLOOD COUNT 5.6 K/UL (4.8-10.8)
[2019-10-12 06:55] LABS: ALBUMIN 3.4 G/DL (3.4-5.0); ANION GAP 4 mmol/L (5-15); BLOOD UREA NITROGEN 27 mg/dL (7-18); CALCIUM 8.9 MG/DL (8.5-10.1); CARBON DIOXIDE 34 MMOL/L (21-32); CHLORIDE 102 MMOL/L (98-107); CREATININE 1.5 MG/DL (0.55-1.30); PHOSPHORUS 4.6 MG/DL (2.5-4.9); POTASSIUM 4.4 MMOL/L (3.5-5.1); SODIUM 140 MMOL/L (136-145)
[2019-10-12 08:00] VITALS: BP 131/67
[2019-10-12] MEDS ORDERED: Aspirin Baby 81mg ORAL SCH (09:00)
[2019-10-12] MEDS: Heparin 5000 units/ml inj SUBQ SCH ×2 (09:00→21:00)
[2019-10-12] MEDS: Carvedilol 6.25mg Tab ORAL SCH ×2 (09:16→22:33)
[2019-10-12] MEDS: Lisinopril 2.5mg tab ORAL SCH (09:16)
[2019-10-12] MEDS: Morphine Sulfate 2mg/ml Inj(IV/IM USE ONLY) IVP PRN ×4 (09:21→22:40)
--- NOTE | 2019-10-12 10:31 | Diagnostic Imaging Report ---
Procedure: XRAY Chest 1v Reason for study: Reason For Exam: DYSPNEA Comparison films: 10/11/2019. FINDINGS: A single one view chest is obtained. Mild vascular prominence unchanged. Linear atelectasis noted in the mid lung bilaterally. There is gross cardiomegaly unchanged. Small right effusion noted. The bony thorax appear unremarkable. IMPRESSION: NO SIGNIFICANT CHANGE COMPARED TO PREVIOUS EXAM.
[2019-10-12 12:00] VITALS: BP 129/77
--- NOTE | 2019-10-12 12:23 | Consultation ---
History of Present Illness General Date patient seen: October 12, 2019 Chief Complaint: Dyspnea/Respdistress Present Illness HPI 54 years old male with past medical history of COPD, congestive heart failure, Cardiomegaly, hypertension, presented to emergency department with increasing dyspnea and swelling of legs. He was told he has an infection in legs and was suppose to take antibiotics. He has also dry cough. He still takes his lasix PO. Allergies: Coded Allergies: SIMVASTATIN (Verified Allergy, Unknown, 07/03/19) Uncoded Allergies: STATINS (Allergy, Unknown, 08/13/19) Medication History Scheduled Amoxicillin/Potassium Clav 875-125* (Augmentin 875-125 Tablet*), 1 TAB ORAL TWICE A DAY, (Reported) Carvedilol (Coreg), 6.25 MG ORAL EVERY 12 HOURS, (Reported) Digoxin* (Digoxin*), 0.125 MG ORAL DAILY, (Reported) Furosemide* (Lasix*), 40 MG ORAL DAILY, (Reported) Hydralazine HCl (Hydralazine HCl), 10 MG ORAL EVERY 8 HOURS, (Reported) Hydrochlorothiazide* (Hydrochlorothiazide*), Unknown Dose ORAL DAILY, (Reported) Lisinopril (Lisinopril*), 5 MG ORAL DAILY, (Reported) Pantoprazole Sodium (Protonix), 40 MG GT DAILY, (Reported) Miscellaneous Medications Aspirin (Aspirin), 81 MG PO, (Reported) Discontinued Medications Atorvastatin Calcium* (Lipitor*), 40 MG ORAL BEDTIME, (Reported) Discontinued Reason: MD discontinued med Patient History Healthcare decision maker Resuscitation status Advanced Directive on File Past Medical/Surgical History Past Medical/Surgical History: (1) Nicotine addiction (2) COPD (chronic obstructive pulmonary disease) (3) Pulmonary HTN (4) HTN (hypertension) Review of Systems All Other Systems: negative except mentioned in HPI Physical Exam General Appearance: WD/WN Lines, tubes and drains: peripheral HEENT: normocephalic, atraumatic Neck: non-tender, normal alignment Respiratory/Chest: chest wall non-tender, rhonchi - left, rhonchi - right Breasts: no masses Cardiovascular/Chest: normal rate, regular rhythm Abdomen: normal bowel sounds, non tender Extremities: normal range of motion, non-tender, trace edema Neurologic: high climber II-XII grossly normal Lymphatic: anterior cervical Last 24 Hour Vital Signs Date Time Temp Pulse Resp B/P (MAP) Pulse Ox O2 Delivery O2 Flow Rate FiO2 10/12/19 09:16 131/67 10/12/19 09:16 104 131/67 10/12/19 09:00 Nasal Cannula 4.0 10/12/19 08:00 108 10/12/19 08:00 98.6 104 21 131/67 (88) 100 10/12/19 05:56 104/74 10/12/19 04:00 111 10/12/19 04:00 97.6 111 20 106/75 (85) 98 10/12/19 00:00 98.0 105 20 109/67 (81) 100 10/12/19 00:00 105 10/11/19 22:21 123/95 10/11/19 22:20 85 123/95 10/11/19 22:11 Nasal Cannula 2.0 10/11/19 21:52 100 Nasal Cannula 2.0 28 10/11/19 21:45 63 18 100 Nasal Cannula 2.0 28 60 18 100 10/11/19 21:30 98.1 85 20 123/95 (104) 99 10/11/19 21:19 112 10/11/19 20:40 98.2 115 24 130/84 96 Room Air 10/11/19 19:48 113 22 124/92 97 Room Air 10/11/19 18:34 98.5 98 19 134/85 100 Room Air 10/11/19 16:19 98.2 115 16 128/87 94 Room Air 10/11/19 16:19 115 16 Room Air 10/11/19 15:52 98.2 115 16 128/87 (101) 94 Room Air Intake and Output 10/11/19 10/12/19 19:00 07:00 Intake Total 150 ml Output Total 2850 ml Balance -2700 ml Intake Oral 150 ml Output Urine Total 2850 ml # Voids 3 2 Laboratory Tests Test 10/11/19 16:15 10/12/19 06:01 White Blood Count 6.9 K/UL (4.8-10.8) 5.6 K/UL (4.8-10.8) Red Blood Count 3.49 M/UL (4.70-6.10) L 3.51 M/UL (4.70-6.10) L Hemoglobin 10.6 G/DL (14.2-18.0) L 10.8 G/DL (14.2-18.0) L Hematocrit 35.7 % (42.0-52.0) L 33.1 % (42.0-52.0) L Mean Corpuscular Volume 102 FL (80-99) H 94 FL (80-99) Mean Corpuscular Hemoglobin 30.3 PG (27.0-31.0) 30.7 PG (27.0-31.0) Mean Corpuscular Hemoglobin Concent 29.6 G/DL (32.0-36.0) L 32.5 G/DL (32.0-36.0) Red Cell Distribution Width 17.1 % (11.6-14.8) H 15.9 % (11.6-14.8) H Platelet Count 98 K/UL (150-450) L 92 K/UL (150-450) L Mean Platelet Volume 8.3 FL (6.5-10.1) 8.1 FL (6.5-10.1) Neutrophils (%) (Auto) 75.0 % (45.0-75.0) % (45.0-75.0) Lymphocytes (%) (Auto) 11.1 % (20.0-45.0) L % (20.0-45.0) Monocytes (%) (Auto) 11.4 % (1.0-10.0) H % (1.0-10.0) Eosinophils (%) (Auto) 1.4 % (0.0-3.0) % (0.0-3.0) Basophils (%) (Auto) 1.2 % (0.0-2.0) % (0.0-2.0) Sodium Level 142 MMOL/L (136-145) 140 MMOL/L (136-145) Potassium Level 4.3 MMOL/L (3.5-5.1) 4.4 MMOL/L (3.5-5.1) Chloride Level 100 MMOL/L (98-107) 102 MMOL/L (98-107) Carbon Dioxide Level 33 MMOL/L (21-32) H 34 MMOL/L (21-32) H Anion Gap 9 mmol/L (5-15) 4 mmol/L (5-15) L Blood Urea Nitrogen 24 mg/dL (7-18) H 27 mg/dL (7-18) H Creatinine 1.3 MG/DL (0.55-1.30) 1.5 MG/DL (0.55-1.30) H Estimat Glomerular Filtration Rate > 60 mL/min (>60) 59.4 mL/min (>60) Glucose Level 103 MG/DL (74-106) 95 MG/DL (74-106) Calcium Level 9.0 MG/DL (8.5-10.1) 8.9 MG/DL (8.5-10.1) Total Bilirubin 0.9 MG/DL (0.2-1.0) Aspartate Amino Transf (AST/SGOT) 32 U/L (15-37) Alanine Aminotransferase (ALT/SGPT) 18 U/L (12-78) Alkaline Phosphatase 89 U/L (46-116) Troponin I 0.046 ng/mL (0.000-0.056) 0.051 ng/mL (0.000-0.056) Pro-B-Type Natriuretic Peptide 4235 pg/mL (0-125) H Total Protein 7.1 G/DL (6.4-8.2) Albumin 3.7 G/DL (3.4-5.0) 3.4 G/DL (3.4-5.0) Globulin 3.4 g/dL Albumin/Globulin Ratio 1.1 (1.0-2.7) Differential Total Cells Counted 100 Neutrophils % (Manual) 68 % (45-75) Lymphocytes % (Manual) 14 % (20-45) L Monocytes % (Manual) 15 % (1-10) H Eosinophils % (Manual) 2 % (0-3) Basophils % (Manual) 1 % (0-2) Band Neutrophils 0 % (0-8) Platelet Estimate Decreased L Platelet Morphology Normal Hypochromasia 1+ Anisocytosis 1+ Phosphorus Level 4.6 MG/DL (2.5-4.9) Height (Feet): 5 Height (Inches): 6.00 Weight (Pounds): 175 Medications Current Medications Medications (Trade) Dose Ordered Sig/Marybeth Route PRN Reason Start Time Stop Time Status Last Admin Dose Admin Acetaminophen (Tylenol) 650 mg Q4H PRN ORAL T>100.5 10/11/19 21:00 11/10/19 20:59 Acetaminophen/ Hydrocodone Bitart ([place] 5/325) 1 tab Q6H PRN ORAL For Pain 10/11/19 23:45 10/18/19 23:44 Albuterol/ Ipratropium (Albuterol/ Ipratropium) 3 ml Q4H PRN HHN Shortness of Breath 10/11/19 21:00 10/16/19 20:59 10/11/19 21:46 Carvedilol (Coreg) 6.25 mg EVERY 12 HOURS ORAL 10/11/19 21:00 11/10/19 20:59 10/12/19 09:16 Dextrose (Dextrose 50%) 25 ml Q30M PRN IV Hypoglycemia 10/11/19 21:00 01/09/20 20:59 Dextrose (Dextrose 50%) 50 ml Q30MIN PRN IV Hypoglycemia 10/11/19 21:00 01/09/20 20:59 Furosemide (Lasix) 40 mg DAILY IV 10/13/19 09:00 11/10/19 21:59 Heparin Sodium (Porcine) (Heparin 5000 units/ml) 5,000 units EVERY 12 HOURS SUBQ 10/12/19 09:00 11/26/19 08:59 Hydralazine HCl (Apresoline) 10 mg EVERY 8 HOURS ORAL 10/11/19 22:00 01/09/20 21:59 10/11/19 22:21 Lisinopril (ZestriL) 5 mg DAILY ORAL 10/12/19 09:00 11/11/19 08:59 10/12/19 09:16 Morphine Sulfate (Morphine Sulfate) 2 mg Q4H PRN IVP For Pain 10/12/19 00:00 10/19/19 00:00 10/12/19 09:21 Ondansetron HCl (Zofran) 4 mg Q6H PRN IVP Nausea & Vomiting 10/11/19 21:00 11/10/19 20:59 Polyethylene Glycol (Miralax) 17 gm DAILYPRN PRN ORAL Constipation 10/11/19 21:00 11/10/19 20:59 Temazepam (Restoril) 15 mg HSPRN PRN ORAL Insomnia 10/11/19 21:00 10/18/19 20:59 Assessment/Plan Problem List: (1) Acute on chronic congestive heart failure ICD Codes: I50.9 - Heart failure, unspecified SNOMED: 586502487, 80637492234596 (2) COPD (chronic obstructive pulmonary disease) ICD Codes: J44.9 - Chronic obstructive pulmonary disease, unspecified SNOMED: 36412175 (3) Atrial fibrillation, chronic ICD Codes: I48.20 - Chronic atrial fibrillation, unspecified SNOMED: 000395869 (4) Normocytic anemia ICD Codes: D64.9 - Anemia, unspecified SNOMED: 255403852 (5) Acute on chronic renal insufficiency ICD Codes: N28.9 - Disorder of kidney and ureter, unspecified; N18.9 - Chronic kidney disease, unspecified SNOMED: 059669450, 042846655 (6) Thrombocytopenia ICD Codes: D69.6 - Thrombocytopenia, unspecified SNOMED: 533251277 (7) Pulmonary HTN ICD Codes: I27.20 - Pulmonary hypertension, unspecified SNOMED: 84330389 (8) HTN (hypertension) ICD Codes: I10 - HTN (hypertension) SNOMED: 09879198 Assessment/Plan: echocardiogram optimize cardiac meds rate control Echo cardiology consult monitor BP dvt prophylaxis anemia w/u blood smear renal w/u Palak Mccray MD October 12, 2019 12:23
[2019-10-12] MEDS ORDERED: Digoxin 0.125mg tab ORAL SCH (12:30)
--- NOTE | 2019-10-12 14:14 | Cardiology Progress Note ---
Assessment/Plan Assessment/Plan pt [facility] recet[facility] hospitalization kenn martínez was dcd from [facility] and 2 hour later presented to er here he has numerous hospitalization at [facility] and [place] , his last cath 2018 showed no cad he has dcm he has chronic chf atrial futter treated with dig and coreg and anticoagl at [place] just this past few days he is homeless he has been diagnosed with schizophrenia and Munchausen syndrome as well as malingering per [facility] and other hospital record he need to be treate on his usul meds keep on anticoagualtion dc soon [id number] Subjective Subjective [facility] record reviewed H Systolic CHF, acute on chronic (HCC) Chest pain Abnormal EKG Cardiomyopathy (HCC) NSVT (nonsustained ventricular tachycardia) ([facility]) Chronic venous stasis dermatitis of both lower extremities HTN (hypertension) Acute on chronic congestive heart failure (HCC) Elevated brain natriuretic peptide (BNP) level Acute exacerbation of CHF (congestive heart failure) (HCC) Endocrine/Metabolic Graves disease Thyrotoxicosis Prediabetes Gastrointestinal and Abdominal Acute pancreatitis Genitourinary and Reproductive Renal insufficiency Acute kidney injury ([facility]) Hyperkalemia Hematology and Neoplasia Anemia Infectious Diseases Cellulitis of lower extremity Mental Health Chronic schizophrenia (HCC) Munchausen's syndrome Paranoid schizophrenia (HCC) Adjustment disorder with depressed mood Pulmonary and Pneumonias Acute on chronic respiratory failure with hypercapnia Symptoms and Signs Edema extremities Exertional dyspnea Leg swelling Tobacco Smoker Other Homelessness Malingering Objective Last 24 Hour Vital Signs Date Time Temp Pulse Resp B/P (MAP) Pulse Ox O2 Delivery O2 Flow Rate FiO2 10/12/19 13:38 102 10/12/19 13:38 129/77 10/12/19 12:00 110 10/12/19 12:00 96.6 102 21 129/77 (94) 100 10/12/19 09:16 131/67 10/12/19 09:16 104 131/67 10/12/19 09:00 Nasal Cannula 4.0 10/12/19 08:00 108 10/12/19 08:00 98.6 104 21 131/67 (88) 100 10/12/19 05:56 104/74 10/12/19 04:00 111 10/12/19 04:00 97.6 111 20 106/75 (85) 98 10/12/19 00:00 98.0 105 20 109/67 (81) 100 10/12/19 00:00 105 10/11/19 22:21 123/95 10/11/19 22:20 85 123/95 10/11/19 22:11 Nasal Cannula 2.0 10/11/19 21:52 100 Nasal Cannula 2.0 28 10/11/19 21:45 63 18 100 Nasal Cannula 2.0 28 60 18 100 10/11/19 21:30 98.1 85 20 123/95 (104) 99 10/11/19 21:19 112 10/11/19 20:40 98.2 115 24 130/84 96 Room Air 10/11/19 19:48 113 22 124/92 97 Room Air 10/11/19 18:34 98.5 98 19 134/85 100 Room Air 10/11/19 16:19 98.2 115 16 128/87 94 Room Air 10/11/19 16:19 115 16 Room Air 10/11/19 15:52 98.2 115 16 128/87 (101) 94 Room Air Intake and Output 10/11/19 10/12/19 19:00 07:00 Intake Total 150 ml Output Total 2850 ml Balance -2700 ml Intake Oral 150 ml Output Urine Total 2850 ml # Voids 3 2 Laboratory Tests Test 10/11/19 16:15 10/12/19 06:01 White Blood Count 6.9 K/UL (4.8-10.8) 5.6 K/UL (4.8-10.8) Red Blood Count 3.49 M/UL (4.70-6.10) L 3.51 M/UL (4.70-6.10) L Hemoglobin 10.6 G/DL (14.2-18.0) L 10.8 G/DL (14.2-18.0) L Hematocrit 35.7 % (42.0-52.0) L 33.1 % (42.0-52.0) L Mean Corpuscular Volume 102 FL (80-99) H 94 FL (80-99) Mean Corpuscular Hemoglobin 30.3 PG (27.0-31.0) 30.7 PG (27.0-31.0) Mean Corpuscular Hemoglobin Concent 29.6 G/DL (32.0-36.0) L 32.5 G/DL (32.0-36.0) Red Cell Distribution Width 17.1 % (11.6-14.8) H 15.9 % (11.6-14.8) H Platelet Count 98 K/UL (150-450) L 92 K/UL (150-450) L Mean Platelet Volume 8.3 FL (6.5-10.1) 8.1 FL (6.5-10.1) Neutrophils (%) (Auto) 75.0 % (45.0-75.0) % (45.0-75.0) Lymphocytes (%) (Auto) 11.1 % (20.0-45.0) L % (20.0-45.0) Monocytes (%) (Auto) 11.4 % (1.0-10.0) H % (1.0-10.0) Eosinophils (%) (Auto) 1.4 % (0.0-3.0) % (0.0-3.0) Basophils (%) (Auto) 1.2 % (0.0-2.0) % (0.0-2.0) Sodium Level 142 MMOL/L (136-145) 140 MMOL/L (136-145) Potassium Level 4.3 MMOL/L (3.5-5.1) 4.4 MMOL/L (3.5-5.1) Chloride Level 100 MMOL/L (98-107) 102 MMOL/L (98-107) Carbon Dioxide Level 33 MMOL/L (21-32) H 34 MMOL/L (21-32) H Anion Gap 9 mmol/L (5-15) 4 mmol/L (5-15) L Blood Urea Nitrogen 24 mg/dL (7-18) H 27 mg/dL (7-18) H Creatinine 1.3 MG/DL (0.55-1.30) 1.5 MG/DL (0.55-1.30) H Estimat Glomerular Filtration Rate > 60 mL/min (>60) 59.4 mL/min (>60) Glucose Level 103 MG/DL (74-106) 95 MG/DL (74-106) Calcium Level 9.0 MG/DL (8.5-10.1) 8.9 MG/DL (8.5-10.1) Total Bilirubin 0.9 MG/DL (0.2-1.0) Aspartate Amino Transf (AST/SGOT) 32 U/L (15-37) Alanine Aminotransferase (ALT/SGPT) 18 U/L (12-78) Alkaline Phosphatase 89 U/L (46-116) Troponin I 0.046 ng/mL (0.000-0.056) 0.051 ng/mL (0.000-0.056) Pro-B-Type Natriuretic Peptide 4235 pg/mL (0-125) H Total Protein 7.1 G/DL (6.4-8.2) Albumin 3.7 G/DL (3.4-5.0) 3.4 G/DL (3.4-5.0) Globulin 3.4 g/dL Albumin/Globulin Ratio 1.1 (1.0-2.7) Differential Total Cells Counted 100 Neutrophils % (Manual) 68 % (45-75) Lymphocytes % (Manual) 14 % (20-45) L Monocytes % (Manual) 15 % (1-10) H Eosinophils % (Manual) 2 % (0-3) Basophils % (Manual) 1 % (0-2) Band Neutrophils 0 % (0-8) Platelet Estimate Decreased L Platelet Morphology Normal Hypochromasia 1+ Anisocytosis 1+ Phosphorus Level 4.6 MG/DL (2.5-4.9) Tone Chapman MD October 12, 2019 14:14
--- NOTE | 2019-10-12 15:58 | History & Physical ---
History and Physical History & Physicial Neftali Tinsley MD October 12, 2019 15:58
[2019-10-12 16:00] VITALS: BP 109/78
[2019-10-12] MEDS: Eliquis 5mg tablet ORAL SCH (17:30)
[2019-10-12 20:00] VITALS: BP 108/79
--- NOTE | 2019-10-12 21:00 | History and Physical Report ---
DATE OF ADMISSION: 10/11/2019 CHIEF COMPLAINT: Shortness of breath. HISTORY OF PRESENT ILLNESS: This is a 54-year-old very unfortunate gentleman with past medical history significant for morbid obesity, history of congestive heart failure with reduced ejection fraction, Graves disease, anemia, cardiomyopathy who presented to the hospital after recently discharged from [facility] due to the shortness of breath and leg edema. Patient was recently discharged from [facility] about 2 hours ago and felt shortness of breath while he was sitting outside on the benches. He had mild diffuse chest discomfort, which is typical for him. He has been having a scrotum as well as leg edema. He denies any fall or head trauma. He had recently COVID-19 test was done at [facility] that was negative. He denies any fever, chills, nausea, or vomiting, however, has been having a history of shortness of breath and nonproductive cough. Shortly after initial evaluation in the emergency department, patient was admitted to the hospital with acute on chronic congestive heart failure with fluid overload, chest congestion, pulmonary edema. PAST MEDICAL HISTORY/PAST SURGICAL HISTORY: As above. History of acute on chronic congestive heart failure with reduced ejection fraction, history of abnormal EKG, cardiomyopathy, nonsustained V-tach, chronic venous stasis of the lower extremity, hypertension, history of Graves disease, thyrotoxicosis, prediabetic, prior history of acute pancreatitis, chronic smoker, COPD, chronic renal insufficiency, hyperkalemia, anemia, chronic schizophrenia, syndrome, paranoid schizophrenia, adjustment disorder with depressed mood, chronic lower extremity edema with lymphedema, tobacco abuse, homeless, malingering. MEDICATIONS AT HOME: Please refer to medication reconciliation. ALLERGIES: To simvastatin and statin class of medications. SOCIAL HISTORY: Patient currently smokes. Denies any alcohol abuse. Denies any substance abuse. He is homeless. FAMILY HISTORY: Noncontributory. REVIEW OF SYSTEMS: Mostly as above. Denies any dysuria, frequency, or hematuria. Complained about shortness of breath and dry cough. Denies any hemoptysis or hematochezia. Denies any bright red blood per rectum. Complained about chronic leg edema. Denies any loss of consciousness. Denies any double vision. PHYSICAL EXAMINATION: VITAL SIGNS: On admission from the emergency department, temperature 98.2, pulse of 115, respirations 16, blood pressure 128/87. GENERAL: Patient is awake and responsive. No acute distress. HEAD AND NECK: Pupils are equal and reactive to light. Extraocular movements are intact. Neck was supple. Positive JVD. LUNGS: Good air entry. Decreased air in bases. No wheezing or rhonchi. HEART: S1, S2. Tachycardic. Distant heart sounds. No murmur or gallops. ABDOMEN: Soft, nondistended, nontender. Positive bowel sounds. Morbidly obese. GENITOURINARY: Noted scrotal edema. No tenderness. No erythema. EXTREMITIES: No cyanosis or clubbing. +2 edema bilateral lower extremity with hyperpigmentation around both lower extremities. NEUROLOGIC: Cranial nerves II through XII grossly intact. Motor is 5/5 in all extremities. Gait was not assessed due to patient's status. RECTAL: Exam refused and deferred. PSYCHIATRIC: Mood and affect is calm and relaxed at this time, but he has history of schizophrenia. LABORATORY DATA: On admission from the emergency, WBC of 6.9, hemoglobin 10.6, hematocrit 35, platelets is 98. Sodium 142, potassium 4.2, chloride 100, bicarb 33, BUN 24, creatinine 1.3, GFR greater than 60. Troponin 0.046. Second troponin 0.051. BNP of 4235. Albumin is 3.7. Chest x-ray was noted to be vascular congestion, hazy density in the right lung base, either infiltrate or early edema, left midlung atelectasis, massive cardiomegaly. ASSESSMENT: 1. Acute CHF exacerbation on chronic with mild pulmonary edema and fluid overload. 2. Hypertension. 3. Morbid obesity. 4. Atrial flutter. 5. History of schizophrenia with syndrome and malingering. 6. History of Graves disease. 7. Prediabetic. 8. History of lower extremity chronic edema. 9. Anemia. 10. Chronic kidney disease. PLAN: Admit patient to monitored unit. We will follow up with Dr. Tone Chapman from Cardiology and Dr. Mccray, Pulmonary Critical Care. We will start patient on the Lasix IV 40 mg twice a day. Follow up with the renal function as well as laboratory. Code status is Full Code. DVT prophylaxis, Eliquis. Neftali Tinsley M.D. DR: AYSHA JOB#: [id number] CC:
[2019-10-13] VITALS (7 sets, daily range): BP systolic 102–122; BP diastolic 70–90
--- NOTE | 2019-10-13 02:45 | Consultation ---
DATE OF CONSULTATION: 10/12/2019 CARDIOLOGY CONSULTATION CONSULTING PHYSICIAN: Tone Chapman MD. REFERRING PHYSICIAN: Neftali Tinsley MD, and Palak Mccray MD. REASON FOR REFERRAL: Chest pain. HISTORY OF PRESENT ILLNESS: This is a 54-year-old gentleman who has a history of multiple hospitalizations here and at [facility]. The patient presented to the emergency room having been discharged from [facility] 2 hours earlier. He felt short of breath and while sitting outside on the bench, complained of diffuse chest pain and states that this was his typical pain. Noted to have lower extremity edema as well as scrotal edema, which has been present for some time. He was supposed to have been seen by a treater at [facility] before, but was discharged. He tested COVID negative approximately 7 days ago at [facility] when he was last admitted. He denied any fevers, chills, or productive cough. He has had a nonproductive cough, which he apparently indicated this was chronic in nature to the emergency room physician. This information was obtained from review of the patient's chart, ER physician's report, and other physicians' report as well as [facility]. The patient is under investigation for possibility of suspected COVID. In either case, he is requesting pain medications. Tylenol was ineffective for him last night. I gave him some Elton; apparently, that was ineffective and he is asking for morphine. His data from [facility] was reviewed and indicates the patient had a cardiac catheterization in 2018, performed by Dr. Holcomb and this cardiac catheterization showed left main to be normal, LAD was normal, circumflex was normal, RCA was nondominant, and he has had no significant obstructive disease. He has a history of cardiomyopathy and he has had ejection fraction to the 20s. He has recently been seen and evaluated. He has actually been cared for by Dr. Hunter, sas developer analyst. The last time he was seen was yesterday at [facility]. PAST MEDICAL HISTORY: His other medical problems include combined systolic and diastolic heart failure, dilated cardiomyopathy, medication noncompliance, homelessness, hypertension, chronic kidney disease, Graves disease, nonsustained ventricular tachycardia, atypical chest pains, and thrombocytopenia. The [facility] chart also indicates that he has had thyrotoxicosis, prediabetes, pancreatitis, renal insufficiency, hyperkalemia, anemia, cellulitis of lower extremity, chronic schizophrenia, Munchausen syndrome, paranoid schizophrenia, adjustment disorder with depression, acute on chronic respiratory failure hypercapnic, lower extremity edema, smoker, malingering, and homelessness. He also has history of atrial flutter. ALLERGIES: He is reportedly allergic to statins, reported "getting anaphylactic" and he has had hospitalizations at [facility] where he was hospitalized from 09/26/2019 through 09/29/2019. MEDICATIONS: His medications that he was receiving at [facility] include digoxin 0.125 mg a day, apixaban 5 mg twice a day, Lasix 40 mg twice a day, Coreg 6.25 mg twice a day, and he is on Entresto twice a day as well as aspirin and NicoDerm patches. REVIEW OF SYSTEMS: As obtained from the emergency room physician's notation.PULMONARY: He has chronic cough, not new. Some wheezing. CONSTITUTIONAL: No fevers, chills, or night sweats. CARDIAC: As mentioned in HPI. He has dyspnea on exertion, leg edema, and chest pains. PHYSICAL EXAMINATION: As per the emergency room physician's notation. CARDIAC: Regular rhythm. Tachycardic. No murmurs appreciated. LUNGS: Normal work of breathing. There is no significant wheezing or crackles appreciated. ABDOMEN: Soft, nontender, nondistended and his lower extremity, tense edema in the lower extremity bilaterally to the knees was noted. He is able to move all four extremities. LABORATORY AND DIAGNOSTIC DATA: His laboratory values, his white count 5.6, hemoglobin 10.8, and platelet count of 92,000. His sodium is 140, potassium 4.4, chloride 102, bicarb 34, BUN of 27, creatinine 1.5, and glucose of 95. His albumin is 3.4. ProBNP of 4200. A chest x-ray performed in the emergency room and repeated today shows mild vascular prominence unchanged and linear atelectasis noted in the lung bases. ASSESSMENT AND PLAN: 1. Chronic systolic heart failure. 2. No evidence of coronary artery disease by cardiac catheterization at [facility] in 2018. 3. Atrial flutter with 2:1 block. 4. Chronic recurrent chest pains with multiple hospitalizations at [facility] as well as [facility] as well as [facility], at least once known of. 5. Nonsustained ventricular tachycardia. 6. History of hypertension. 7. Prediabetes. 8. History of renal insufficiency. 9. Anemia. 10. Chronic schizophrenia. 11. Reported history of Munchausen syndrome. 12. Reported history of malingering. 13. Homelessness. This patient was seen in cardiac consultation. The patient has no coronary artery disease by cardiac catheterization at [facility]. His EKG does show evidence of atrial flutter with 2:1 block and in direct comparison with [facility]'s EKG, it was present on the EKG at [facility] before. He has had a diagnosis of atrial flutter for which he is on anticoagulation with Eliquis and he is on digoxin and Coreg for. His cardiac enzymes are negative so far here. He does not have any coronary artery disease by cardiac catheterization of 2018. He has had several hospitalizations according to his [facility] records that they have indicated numerous stress tests that were negative. No evidence of prior ischemia either at [facility] either. There are many hospitalizations I think the patient does have treatment. He is to continue his treatment for chronic congestive heart failure and needs to be on sodium and fluid restriction and probably should be discharged soon. His proBNP is not significantly elevated for the degree of heart failure that he has because of his recent hospitalization and treatment for congestive heart failure at [facility]. Tone Chapman M.D. DR: Lg JOB#: [id number] CC:
[2019-10-13] MEDS: HydrALAZINE 10mg Tab ORAL SCH ×3 (05:21→21:43)
--- NOTE | 2019-10-13 08:41 | Pulmonology Progress Note ---
Subjective Allergies: Coded Allergies: SIMVASTATIN (Verified Allergy, Unknown, 07/03/19) Uncoded Allergies: STATINS (Allergy, Unknown, 08/13/19) Subjective on O2 2 L via NC, no signs of resp distress remains afebrile Objective Last 24 Hour Vital Signs Date Time Temp Pulse Resp B/P (MAP) Pulse Ox O2 Delivery O2 Flow Rate FiO2 10/13/19 05:21 102/74 10/13/19 04:00 97.7 106 19 102/74 (83) 97 10/13/19 04:00 115 10/13/19 00:00 97.7 88 20 113/82 (92) 92 10/13/19 00:00 89 10/12/19 23:10 98.4 10/12/19 22:33 113/81 10/12/19 22:33 111 113/81 10/12/19 21:00 Nasal Cannula 4.0 10/12/19 20:00 111 10/12/19 20:00 98.4 111 22 108/79 (89) 100 10/12/19 19:54 100 Nasal Cannula 4.0 36 10/12/19 16:00 108 10/12/19 16:00 98.6 107 19 109/78 (88) 100 10/12/19 13:38 102 10/12/19 13:38 129/77 10/12/19 12:00 110 10/12/19 12:00 96.6 102 21 129/77 (94) 100 10/12/19 09:16 131/67 10/12/19 09:16 104 131/67 10/12/19 09:00 Nasal Cannula 4.0 Intake and Output 10/12/19 10/13/19 19:00 07:00 Intake Total 1000 ml Output Total 2200 ml 300 ml Balance -1200 ml -300 ml Intake Oral 1000 ml Output Urine Total 2200 ml 300 ml # Voids 6 General Appearance: other - AA male in NAD HEENT: normocephalic, atraumatic, anicteric, mucous membranes moist Respiratory: no respiratory distress, no accessory muscle use, decreased breath sounds Cardiovascular: normal rate Abdomen: normal bowel sounds, soft, non tender - obese Extremities: other - +1 edema BLE Neurologic: alert, oriented x 3, responsive, other - no focal deficicts, flat affect Musculoskeletal: normal muscle bulk Laboratory Tests 10/12/19 21:00: Troponin I 0.048 Current Medications Medications (Trade) Dose Ordered Sig/Marybeth Route PRN Reason Start Time Stop Time Status Last Admin Dose Admin Acetaminophen (Tylenol) 650 mg Q4H PRN ORAL T>100.5 10/11/19 21:00 11/10/19 20:59 Acetaminophen/ Hydrocodone Bitart ([place] 5/325) 1 tab Q6H PRN ORAL For Pain 10/11/19 23:45 10/18/19 23:44 Albuterol/ Ipratropium (Albuterol/ Ipratropium) 3 ml Q4H PRN HHN Shortness of Breath 10/11/19 21:00 10/16/19 20:59 10/11/19 21:46 Apixaban (Eliquis) 5 mg BID ORAL 10/12/19 18:00 01/10/20 17:59 10/12/19 17:30 Carvedilol (Coreg) 6.25 mg EVERY 12 HOURS ORAL 10/11/19 21:00 11/10/19 20:59 10/12/19 22:33 Dextrose (Dextrose 50%) 25 ml Q30M PRN IV Hypoglycemia 10/11/19 21:00 01/09/20 20:59 Dextrose (Dextrose 50%) 50 ml Q30MIN PRN IV Hypoglycemia 10/11/19 21:00 01/09/20 20:59 Furosemide (Lasix) 40 mg BID IV 10/12/19 18:00 11/11/19 17:59 10/12/19 17:30 Heparin Sodium (Porcine) (Heparin 5000 units/ml) 5,000 units EVERY 12 HOURS SUBQ 10/12/19 09:00 11/26/19 08:59 Hydralazine HCl (Apresoline) 10 mg EVERY 8 HOURS ORAL 10/11/19 22:00 01/09/20 21:59 10/12/19 22:33 Lisinopril (ZestriL) 5 mg DAILY ORAL 10/12/19 09:00 11/11/19 08:59 10/12/19 09:16 Morphine Sulfate (Morphine Sulfate) 2 mg Q4H PRN IVP For Pain 10/12/19 00:00 10/19/19 00:00 10/12/19 22:40 Ondansetron HCl (Zofran) 4 mg Q6H PRN IVP Nausea & Vomiting 10/11/19 21:00 11/10/19 20:59 Polyethylene Glycol (Miralax) 17 gm DAILYPRN PRN ORAL Constipation 10/11/19 21:00 11/10/19 20:59 Temazepam (Restoril) 15 mg HSPRN PRN ORAL Insomnia 10/11/19 21:00 10/18/19 20:59 Assessment/Plan Assessment/Plan ASSESSMENT Shortness of breath Acute CHF exacerbation on chronic with mild pulmonary edema and fluid overload Severe dilated cardiomyopathy with EF 10 to 15% COPD Moderate pulmonary hypertension Hypertension Anemia 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 PLAN OF CARE tele diuresis with close monitoring of volumes and cardiorenal parameters O2, titrate to keep sat above 92% pulmonary toilet with HHN prior testing negative for COVID CXR noted fup CXR 10/11 no changes from initial DVT prophylaxis Echo with EF 10 to 15% , mild to moderate mitral regurgitation and moderate pulmonary hypertension per cardio had DCM and last cath in 2017 no evidence of CAD a/PLT therapy/ASA and BB guideline directed medical therapy for CHF with BB, THO and diuretic, monitor volumes Lasix decreased to bid due to worsening creat BP management with BB, THO inhibitor , hydralazine and Lasix fup with cardio recs monitor renal parameters, correct lytes as needed abd US pending monitor HH with goal to keep Hgb above 7,remains at baseline anemia w/up supportive care case discussed and evaluated by supervising physician Hattie Fox NP October 13, 2019 08:41
[2019-10-13 08:52] LABS: HEMATOCRIT 33.3 % (42.0-52.0); HEMOGLOBIN 10.6 G/DL (14.2-18.0); MEAN CORPUSCULAR VOLUME 96 FL (80-99); PLATELET COUNT 85 K/UL (150-450); RED BLOOD COUNT 3.47 M/UL (4.70-6.10); RED CELL DISTRIBUTION WIDTH 15.9 % (11.6-14.8); WHITE BLOOD COUNT 4.8 K/UL (4.8-10.8)
[2019-10-13] MEDS: Heparin 5000 units/ml inj SUBQ SCH ×2 (09:00→21:00)
[2019-10-13 09:13] LABS: INR 1.1 (0.9-1.1)
[2019-10-13] MEDS: Carvedilol 6.25mg Tab ORAL SCH ×2 (09:16→21:43)
[2019-10-13] MEDS: Lisinopril 2.5mg tab ORAL SCH (09:17)
[2019-10-13] MEDS: Eliquis 5mg tablet ORAL SCH ×2 (09:17→17:51)
[2019-10-13 09:36] LABS: ALANINE AMINOTRANSFERASE 21 U/L (12-78); ALBUMIN 3.9 G/DL (3.4-5.0); ALBUMIN/GLOBULIN RATIO 1.2 (1.0-2.7); ALKALINE PHOSPHATASE 93 U/L (46-116); ANION GAP 8 mmol/L (5-15); ASPARTATE AMINO TRANSFERASE 38 U/L (15-37); BILIRUBIN,TOTAL 0.7 MG/DL (0.2-1.0); BLOOD UREA NITROGEN 34 mg/dL (7-18); CALCIUM 8.7 MG/DL (8.5-10.1); CARBON DIOXIDE 35 MMOL/L (21-32); CHLORIDE 98 MMOL/L (98-107); CREATININE 1.5 MG/DL (0.55-1.30); LACTATE DEHYDROGENASE 381 U/L (81-234); POTASSIUM 4.7 MMOL/L (3.5-5.1); SODIUM 141 MMOL/L (136-145)
[2019-10-13 09:40] LABS: PHOSPHORUS 5.1 MG/DL (2.5-4.9)
[2019-10-13 10:20] LABS: % IRON SATURATION 8 % (15-50); IRON 46 ug/dL (50-175); TOTAL IRON BINDING CAPACITY 545 ug/dL (250-450)
--- NOTE | 2019-10-13 11:00 | Internal Med Progress Note ---
Subjective Date of Service: October 13, 2019 Physician Name Yoder,Yousif Attending Physician Neftali Tinsley MD Current Medications Medications (Trade) Dose Ordered Sig/Marybeth Route PRN Reason Start Time Stop Time Status Last Admin Dose Admin Acetaminophen (Tylenol) 650 mg Q4H PRN ORAL T>100.5 10/11/19 21:00 11/10/19 20:59 Acetaminophen/ Hydrocodone Bitart ([place] 5/325) 1 tab Q6H PRN ORAL For Pain 10/11/19 23:45 10/18/19 23:44 Albuterol/ Ipratropium (Albuterol/ Ipratropium) 3 ml Q4H PRN HHN Shortness of Breath 10/11/19 21:00 10/16/19 20:59 10/11/19 21:46 Apixaban (Eliquis) 5 mg BID ORAL 10/12/19 18:00 01/10/20 17:59 10/13/19 09:17 Carvedilol (Coreg) 6.25 mg EVERY 12 HOURS ORAL 10/11/19 21:00 11/10/19 20:59 10/13/19 09:16 Dextrose (Dextrose 50%) 25 ml Q30M PRN IV Hypoglycemia 10/11/19 21:00 01/09/20 20:59 Dextrose (Dextrose 50%) 50 ml Q30MIN PRN IV Hypoglycemia 10/11/19 21:00 01/09/20 20:59 Furosemide (Lasix) 40 mg BID IV 10/12/19 18:00 11/11/19 17:59 10/13/19 09:16 Heparin Sodium (Porcine) (Heparin 5000 units/ml) 5,000 units EVERY 12 HOURS SUBQ 10/12/19 09:00 11/26/19 08:59 Hydralazine HCl (Apresoline) 10 mg EVERY 8 HOURS ORAL 10/11/19 22:00 01/09/20 21:59 10/12/19 22:33 Lisinopril (ZestriL) 5 mg DAILY ORAL 10/12/19 09:00 11/11/19 08:59 10/13/19 09:17 Morphine Sulfate (Morphine Sulfate) 2 mg Q4H PRN IVP For Pain 10/12/19 00:00 10/19/19 00:00 10/12/19 22:40 Ondansetron HCl (Zofran) 4 mg Q6H PRN IVP Nausea & Vomiting 10/11/19 21:00 11/10/19 20:59 Polyethylene Glycol (Miralax) 17 gm DAILYPRN PRN ORAL Constipation 10/11/19 21:00 11/10/19 20:59 Temazepam (Restoril) 15 mg HSPRN PRN ORAL Insomnia 10/11/19 21:00 10/18/19 20:59 Allergies: Coded Allergies: SIMVASTATIN (Verified Allergy, Unknown, 07/03/19) Uncoded Allergies: STATINS (Allergy, Unknown, 08/13/19) ROS Limited/Unobtainable: No Constitutional: Reports: no symptoms HEENT: Reports: no symptoms Cardiovascular: Reports: no symptoms Respiratory: Reports: shortness of breath Gastrointestinal/Abdominal: Reports: no symptoms Genitourinary: Reports: no symptoms Neurologic/Psychiatric: Reports: no symptoms Subjective 54 YO M admitted with shortness of breath. Now Acute on chronic congestive heart failure. Cover for Int Neal-Dr Tinsley Objective Last Vital Signs Date Time Temp Pulse Resp B/P (MAP) Pulse Ox O2 Delivery O2 Flow Rate FiO2 10/13/19 09:17 117/80 10/13/19 09:16 108 10/13/19 04:00 97.7 19 97 10/12/19 21:00 Nasal Cannula 4.0 10/12/19 19:54 36 Laboratory Tests Test 10/12/19 21:00 10/13/19 06:55 Troponin I 0.048 ng/mL (0.000-0.056) 0.044 ng/mL (0.000-0.056) White Blood Count 4.8 K/UL (4.8-10.8) Red Blood Count 3.47 M/UL (4.70-6.10) L Hemoglobin 10.6 G/DL (14.2-18.0) L Hematocrit 33.3 % (42.0-52.0) L Mean Corpuscular Volume 96 FL (80-99) Mean Corpuscular Hemoglobin 30.4 PG (27.0-31.0) Mean Corpuscular Hemoglobin Concent 31.8 G/DL (32.0-36.0) L Red Cell Distribution Width 15.9 % (11.6-14.8) H Platelet Count 85 K/UL (150-450) L Mean Platelet Volume 7.4 FL (6.5-10.1) Neutrophils (%) (Auto) % (45.0-75.0) Lymphocytes (%) (Auto) % (20.0-45.0) Monocytes (%) (Auto) % (1.0-10.0) Eosinophils (%) (Auto) % (0.0-3.0) Basophils (%) (Auto) % (0.0-2.0) Differential Total Cells Counted 100 Neutrophils % (Manual) 63 % (45-75) Lymphocytes % (Manual) 19 % (20-45) L Monocytes % (Manual) 12 % (1-10) H Eosinophils % (Manual) 5 % (0-3) H Basophils % (Manual) 1 % (0-2) Band Neutrophils 0 % (0-8) Platelet Estimate Decreased L Platelet Morphology Normal Hypochromasia 1+ Anisocytosis 1+ Erythrocyte Sedimentation Rate 43 MM/HR (0-20) H Reticulocyte Count 4.0 % (0.5-2.0) H Prothrombin Time 12.4 SEC (9.30-11.50) H Prothromb Time International Ratio 1.1 (0.9-1.1) Activated Partial Thromboplast Time 29 SEC (23-33) Sodium Level 141 MMOL/L (136-145) Potassium Level 4.7 MMOL/L (3.5-5.1) Chloride Level 98 MMOL/L (98-107) Carbon Dioxide Level 35 MMOL/L (21-32) H Anion Gap 8 mmol/L (5-15) Blood Urea Nitrogen 34 mg/dL (7-18) H Creatinine 1.5 MG/DL (0.55-1.30) H Estimat Glomerular Filtration Rate 59.4 mL/min (>60) Glucose Level 79 MG/DL (74-106) Calcium Level 8.7 MG/DL (8.5-10.1) Phosphorus Level 5.1 MG/DL (2.5-4.9) H Magnesium Level 2.1 MG/DL (1.8-2.4) Iron Level 46 ug/dL (50-175) L Total Iron Binding Capacity 545 ug/dL (250-450) H Percent Iron Saturation 8 % (15-50) L Unsaturated Iron Binding 499 ug/dL (112-346) H Total Bilirubin 0.7 MG/DL (0.2-1.0) Aspartate Amino Transf (AST/SGOT) 38 U/L (15-37) H Alanine Aminotransferase (ALT/SGPT) 21 U/L (12-78) Alkaline Phosphatase 93 U/L (46-116) Lactate Dehydrogenase 381 U/L (81-234) H Total Protein 7.2 G/DL (6.4-8.2) Albumin 3.9 G/DL (3.4-5.0) Globulin 3.3 g/dL Albumin/Globulin Ratio 1.2 (1.0-2.7) Carcinoembryonic Antigen Pending Vitamin B12 Level 494 PG/ML (193-986) Folate 17.1 NG/ML (8.6-58.9) Intake and Output 10/12/19 10/13/19 19:00 07:00 Intake Total 1000 ml Output Total 2200 ml 300 ml Balance -1200 ml -300 ml Intake Oral 1000 ml Output Urine Total 2200 ml 300 ml # Voids 6 Objective PHYSICAL EXAMINATION: GENERAL: Patient is awake and responsive. No acute distress. HEAD AND NECK: Pupils are equal and reactive to light. Extraocular movements are intact. Neck was supple. Positive JVD. LUNGS: Good air entry. Decreased air in bases. No wheezing or rhonchi. HEART: S1, S2. Tachycardic. Distant heart sounds. No murmur or gallops. ABDOMEN: Soft, nondistended, nontender. Positive bowel sounds. Morbidly obese. GENITOURINARY: Noted scrotal edema. No tenderness. No erythema. EXTREMITIES: No cyanosis or clubbing. +2 edema bilateral lower extremity with hyperpigmentation around both lower extremities. NEUROLOGIC: Cranial nerves II through XII grossly intact. Motor is 5/5 in all extremities. Gait was not assessed due to patient's status. RECTAL: Exam refused and deferred. PSYCHIATRIC: Mood and affect is calm and relaxed at this time, but he has history of schizophrenia. Assessment/Plan Assessment/Plan ASSESSMENT: 1. Acute CHF exacerbation on chronic with mild pulmonary edema and fluid overload. LVEF=10-15% 2. Hypertension. 3. Morbid obesity. 4. Atrial flutter. 5. History of paranoid schizophrenia and malingering. 6. History of Graves disease. 7. Prediabetic. 8. History of lower extremity chronic edema. 9. Anemia. 10. Chronic kidney disease. PLAN: 1. Admit patient to monitored unit. 2. Dr. Tone Chapman = Cardiology consult 3. Dr. Mccray=Pulmonary Critical Care. 4. Lasix IV 40 mg twice a day. 5. Code status is Full Code. 6. DVT prophylaxis=Eliquis. Yousif Yoder MD October 13, 2019 11:00
[2019-10-13] MEDS: Albuterol/Ipratropium 3ml neb HHN PRN ×2 (11:41→18:49)
--- NOTE | 2019-10-13 13:11 | Diagnostic Imaging Report ---
EXAM: US Abdomen Complete CLINICAL HISTORY: ABD DIST TECHNIQUE: Real-time ultrasound of the abdomen with image documentation. COMPARISON: Ultrasound abdomen on 07/06/2019 FINDINGS: Liver: Liver measures 18.7 cm, mildly enlarged. Nodular contour of the liver suggestive of cirrhosis. Hepatic veins and IVC are prominent, nonspecific. Visualized portions of the IVC are otherwise unremarkable. Increased echogenicity of the liver suggestive of hepatic steatosis. Gallbladder: Nonspecific mild gallbladder wall thickening, measuring approximately 4 mm. No definite gallstones or sludge. No pericholecystic fluid. Negative sonographic Ortiz's sign. Common bile duct: Normal common bile duct measuring 5 mm. No stones. No dilation. Pancreas: Pancreas is not visualized due to overlying bowel gas. Kidneys: Right kidney measures 9.6 cm in length. No hydronephrosis or stone. Left kidney measures 10.3 cm in length. No hydronephrosis or stone. Spleen: Mildly enlarged spleen measuring 13.9 cm. Aorta: Visualized portions of the aorta are unremarkable. Inferior vena cava: See above. Other vasculature: Patent main portal vein with normal direction of flow. Free fluid: Small amount of ascites. Other findings: No focal lesion. IMPRESSION: 1. Liver measures 18.7 cm, mildly enlarged. Nodular contour of the liver suggestive of cirrhosis. Probable hepatic steatosis. 2. Small amount of ascites. 3. Mildly enlarged spleen measuring 13.9 cm. 4. Nonspecific gallbladder wall thickening. This may be related to underlying liver disease.
[2019-10-13] MEDS: Morphine Sulfate 2mg/ml Inj(IV/IM USE ONLY) IVP PRN ×2 (14:17→22:42)
--- NOTE | 2019-10-13 16:24 | Cardiology Progress Note ---
Assessment/Plan Assessment/Plan CHF cadiomyopathy aflutter continue management with GDMT Subjective Subjective Coverage for Dr Chapman The patient is sitting in his bed, awating for lunch he reports that his dyspnea is gone Objective Last 24 Hour Vital Signs Date Time Temp Pulse Resp B/P (MAP) Pulse Ox O2 Delivery O2 Flow Rate FiO2 10/13/19 16:00 98.0 94 20 106/71 (83) 98 10/13/19 14:47 98.1 10/13/19 14:14 122/90 10/13/19 12:00 110 10/13/19 12:00 98.1 65 20 122/90 (101) 100 10/13/19 11:41 71 18 99 Nasal Cannula 4.0 36 78 20 98 10/13/19 11:41 99 Nasal Cannula 4.0 36 10/13/19 09:17 117/80 10/13/19 09:16 108 117/80 10/13/19 09:00 Nasal Cannula 4.0 10/13/19 08:36 122 10/13/19 08:00 110 10/13/19 08:00 98.0 108 20 117/80 (92) 97 10/13/19 05:21 102/74 10/13/19 04:00 97.7 106 19 102/74 (83) 97 10/13/19 04:00 115 10/13/19 00:00 97.7 88 20 113/82 (92) 92 10/13/19 00:00 89 10/12/19 22:33 113/81 10/12/19 22:33 111 113/81 10/12/19 21:00 Nasal Cannula 4.0 10/12/19 20:00 111 10/12/19 20:00 98.4 111 22 108/79 (89) 100 10/12/19 19:54 100 Nasal Cannula 4.0 36 General Appearance: no apparent distress EENT: PERRL/EOMI Neck: JVD Rhythm: other - a flutter Cardiovascular: regular rhythm Respiratory/Chest: crackles/rales Abdomen: soft Extremities: moderate edema Intake and Output 10/12/19 10/13/19 19:00 07:00 Intake Total 1000 ml Output Total 2200 ml 300 ml Balance -1200 ml -300 ml Intake Oral 1000 ml Output Urine Total 2200 ml 300 ml # Voids 6 Laboratory Tests Test 10/12/19 21:00 10/13/19 06:55 Troponin I 0.048 ng/mL (0.000-0.056) 0.044 ng/mL (0.000-0.056) White Blood Count 4.8 K/UL (4.8-10.8) Red Blood Count 3.47 M/UL (4.70-6.10) L Hemoglobin 10.6 G/DL (14.2-18.0) L Hematocrit 33.3 % (42.0-52.0) L Mean Corpuscular Volume 96 FL (80-99) Mean Corpuscular Hemoglobin 30.4 PG (27.0-31.0) Mean Corpuscular Hemoglobin Concent 31.8 G/DL (32.0-36.0) L Red Cell Distribution Width 15.9 % (11.6-14.8) H Platelet Count 85 K/UL (150-450) L Mean Platelet Volume 7.4 FL (6.5-10.1) Neutrophils (%) (Auto) % (45.0-75.0) Lymphocytes (%) (Auto) % (20.0-45.0) Monocytes (%) (Auto) % (1.0-10.0) Eosinophils (%) (Auto) % (0.0-3.0) Basophils (%) (Auto) % (0.0-2.0) Differential Total Cells Counted 100 Neutrophils % (Manual) 63 % (45-75) Lymphocytes % (Manual) 19 % (20-45) L Monocytes % (Manual) 12 % (1-10) H Eosinophils % (Manual) 5 % (0-3) H Basophils % (Manual) 1 % (0-2) Band Neutrophils 0 % (0-8) Platelet Estimate Decreased L Platelet Morphology Normal Hypochromasia 1+ Anisocytosis 1+ Erythrocyte Sedimentation Rate 43 MM/HR (0-20) H Reticulocyte Count 4.0 % (0.5-2.0) H Prothrombin Time 12.4 SEC (9.30-11.50) H Prothromb Time International Ratio 1.1 (0.9-1.1) Activated Partial Thromboplast Time 29 SEC (23-33) Sodium Level 141 MMOL/L (136-145) Potassium Level 4.7 MMOL/L (3.5-5.1) Chloride Level 98 MMOL/L (98-107) Carbon Dioxide Level 35 MMOL/L (21-32) H Anion Gap 8 mmol/L (5-15) Blood Urea Nitrogen 34 mg/dL (7-18) H Creatinine 1.5 MG/DL (0.55-1.30) H Estimat Glomerular Filtration Rate 59.4 mL/min (>60) Glucose Level 79 MG/DL (74-106) Calcium Level 8.7 MG/DL (8.5-10.1) Phosphorus Level 5.1 MG/DL (2.5-4.9) H Magnesium Level 2.1 MG/DL (1.8-2.4) Iron Level 46 ug/dL (50-175) L Total Iron Binding Capacity 545 ug/dL (250-450) H Percent Iron Saturation 8 % (15-50) L Unsaturated Iron Binding 499 ug/dL (112-346) H Total Bilirubin 0.7 MG/DL (0.2-1.0) Aspartate Amino Transf (AST/SGOT) 38 U/L (15-37) H Alanine Aminotransferase (ALT/SGPT) 21 U/L (12-78) Alkaline Phosphatase 93 U/L (46-116) Lactate Dehydrogenase 381 U/L (81-234) H Total Protein 7.2 G/DL (6.4-8.2) Albumin 3.9 G/DL (3.4-5.0) Globulin 3.3 g/dL Albumin/Globulin Ratio 1.2 (1.0-2.7) Carcinoembryonic Antigen Pending Vitamin B12 Level 494 PG/ML (193-986) Folate 17.1 NG/ML (8.6-58.9) Bailee Owens MD October 13, 2019 16:24
[2019-10-14 04:00] VITALS: BP 108/70
[2019-10-14] MEDS: Morphine Sulfate 2mg/ml Inj(IV/IM USE ONLY) IVP PRN ×3 (05:19→13:34)
[2019-10-14] MEDS: HydrALAZINE 10mg Tab ORAL SCH ×4 (05:20→22:03)
[2019-10-14 05:29] VITALS: BP 101/70
--- NOTE | 2019-10-14 07:18 | Pulmonology Progress Note ---
Subjective ROS Limited/Unobtainable: No Allergies: Coded Allergies: SIMVASTATIN (Verified Allergy, Unknown, 07/03/19) Uncoded Allergies: STATINS (Allergy, Unknown, 08/13/19) Subjective on O2 2 L via NC, no signs of resp distress remains afebrile Objective Last 24 Hour Vital Signs Date Time Temp Pulse Resp B/P (MAP) Pulse Ox O2 Delivery O2 Flow Rate FiO2 10/14/19 05:29 97.9 99 20 101/70 (80) 99 10/14/19 05:29 101/70 10/14/19 05:00 102 10/14/19 04:00 98.0 100 20 108/70 (83) 99 10/14/19 00:00 97 10/13/19 23:59 98.0 100 20 111/77 (88) 99 10/13/19 23:12 97.5 10/13/19 21:43 112/70 10/13/19 21:43 107 112/70 10/13/19 20:57 Nasal Cannula 4.0 Nasal Cannula 4.0 10/13/19 20:00 107 10/13/19 20:00 97.5 112 20 112/70 (84) 98 10/13/19 18:45 98 Nasal Cannula 4.0 36 10/13/19 18:45 94 18 100 Nasal Cannula 4.0 36 96 18 98 10/13/19 16:00 98.0 94 20 106/71 (83) 98 10/13/19 16:00 110 10/13/19 14:14 122/90 10/13/19 12:00 110 10/13/19 12:00 98.1 65 20 122/90 (101) 100 10/13/19 11:41 71 18 99 Nasal Cannula 4.0 36 78 20 98 10/13/19 11:41 99 Nasal Cannula 4.0 36 10/13/19 09:17 117/80 10/13/19 09:16 108 117/80 10/13/19 09:00 Nasal Cannula 4.0 10/13/19 08:36 122 10/13/19 08:00 110 10/13/19 08:00 98.0 108 20 117/80 (92) 97 Intake and Output 10/13/19 10/14/19 19:00 07:00 Intake Total 350 ml 800 ml Output Total 1600 ml Balance 350 ml -800 ml Intake Oral 350 ml Other 800 ml Output Urine Total 1600 ml # Voids 3 Objective General Appearance: AA male in NAD HEENT: normocephalic, atraumatic, anicteric, mucous membranes moist Respiratory: no respiratory distress, no accessory muscle use, decreased breath sounds Cardiovascular: normal rate Abdomen: normal bowel sounds, soft, non tender - obese Extremities: other - +1 edema BLE Neurologic: alert, oriented x 3, responsive, other - no focal deficits, flat affect Musculoskeletal: normal muscle bulk Current Medications Medications (Trade) Dose Ordered Sig/Marybeth Route PRN Reason Start Time Stop Time Status Last Admin Dose Admin Acetaminophen (Tylenol) 650 mg Q4H PRN ORAL T>100.5 10/11/19 21:00 11/10/19 20:59 Acetaminophen/ Hydrocodone Bitart ([place] 5/325) 1 tab Q6H PRN ORAL For Pain 10/11/19 23:45 10/18/19 23:44 Albuterol/ Ipratropium (Albuterol/ Ipratropium) 3 ml Q4H PRN HHN Shortness of Breath 10/11/19 21:00 10/16/19 20:59 10/13/19 18:49 Apixaban (Eliquis) 5 mg BID ORAL 10/12/19 18:00 01/10/20 17:59 10/13/19 17:51 Carvedilol (Coreg) 6.25 mg EVERY 12 HOURS ORAL 10/11/19 21:00 11/10/19 20:59 10/13/19 21:43 Dextrose (Dextrose 50%) 25 ml Q30M PRN IV Hypoglycemia 10/11/19 21:00 01/09/20 20:59 Dextrose (Dextrose 50%) 50 ml Q30MIN PRN IV Hypoglycemia 10/11/19 21:00 01/09/20 20:59 Furosemide (Lasix) 40 mg BID IV 10/12/19 18:00 11/11/19 17:59 10/13/19 17:51 Heparin Sodium (Porcine) (Heparin 5000 units/ml) 5,000 units EVERY 12 HOURS SUBQ 10/12/19 09:00 11/26/19 08:59 Hydralazine HCl (Apresoline) 10 mg EVERY 8 HOURS ORAL 10/11/19 22:00 01/09/20 21:59 10/13/19 21:43 Lisinopril (ZestriL) 5 mg DAILY ORAL 10/12/19 09:00 11/11/19 08:59 10/13/19 09:17 Morphine Sulfate (Morphine Sulfate) 2 mg Q4H PRN IVP For Pain 10/14/19 09:00 10/19/19 08:59 Ondansetron HCl (Zofran) 4 mg Q6H PRN IVP Nausea & Vomiting 10/11/19 21:00 11/10/19 20:59 Polyethylene Glycol (Miralax) 17 gm DAILYPRN PRN ORAL Constipation 10/11/19 21:00 11/10/19 20:59 Temazepam (Restoril) 15 mg HSPRN PRN ORAL Insomnia 10/11/19 21:00 10/18/19 20:59 Assessment/Plan Assessment/Plan ASSESSMENT Shortness of breath Acute CHF exacerbation on chronic with mild pulmonary edema and fluid overload Severe dilated cardiomyopathy with EF 10 to 15% COPD Moderate pulmonary hypertension Hypertension Anemia 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 Liver cirrhosis PLAN OF CARE tele diuresis with close monitoring of volumes and cardiorenal parameters O2, titrate to keep sat above 92% pulmonary toilet with HHN prior testing negative for COVID CXR noted fup CXR 10/11 no changes from initial DVT prophylaxis Echo with EF 10 to 15% , mild to moderate mitral regurgitation and moderate pulmonary hypertension per cardio had DCM and last cath in 2017 no evidence of CAD a/PLT therapy/ASA and BB guideline directed medical therapy for CHF with BB, THO and diuretic, monitor volumes pro BNP trending down Lasix decreased to bid due to worsening creat, BP management with BB, THO inhibitor , hydralazine and Lasix fup with cardio recs monitor renal parameters, correct lytes as needed , creat with no change abd US with mild hepatomegaly . Nodular contour of the liver suggestive of cirrhosis. Probable hepatic steatosis. Small amount of ascites. Mildly enlarged spleen . Nonspecific gallbladder wall thickening. may be related to underlying liver disease. monitor HH with goal to keep Hgb above 7,remains at baseline anemia w/up noted supportive care case discussed and evaluated by supervising physician Hattie Fox NP October 14, 2019 07:18
[2019-10-14 07:54] LABS: MEAN CORPUSCULAR VOLUME 95 FL (80-99); PLATELET COUNT 81 K/UL (150-450); RED BLOOD COUNT 3.28 M/UL (4.70-6.10); RED CELL DISTRIBUTION WIDTH 16.2 % (11.6-14.8)
[2019-10-14 08:00] VITALS: BP 124/86
[2019-10-14 08:17] LABS: ANION GAP 5 mmol/L (5-15); BLOOD UREA NITROGEN 28 mg/dL (7-18); CALCIUM 8.2 MG/DL (8.5-10.1); CARBON DIOXIDE 36 MMOL/L (21-32); CHLORIDE 100 MMOL/L (98-107); CREATININE 1.5 MG/DL (0.55-1.30); POTASSIUM 4.1 MMOL/L (3.5-5.1); SODIUM 141 MMOL/L (136-145)
[2019-10-14] MEDS: HYDROcodone/Acetamin 5/325 tab ORAL PRN (08:57)
[2019-10-14] MEDS: Eliquis 5mg tablet ORAL SCH ×2 (08:58→17:37)
[2019-10-14] MEDS: Lisinopril 2.5mg tab ORAL SCH (08:58)
[2019-10-14] MEDS: Carvedilol 6.25mg Tab ORAL SCH ×2 (08:59→21:59)
[2019-10-14] MEDS: Heparin 5000 units/ml inj SUBQ SCH ×2 (09:00→21:00)
[2019-10-14 12:00] VITALS: BP 128/87
--- NOTE | 2019-10-14 13:03 | Consultation ---
Consult Note Consult Note I am asked to evaluate the patient at the request of for renal failure. HPI: 54-year-old male history of congestive heart failure reduced ejection fraction presents for evaluation of shortness of breath. He was discharged from [facility] approximately 2 hours ago and felt short of breath while sitting outside on a bench. Reports mild diffuse chest pain which he states is typical for him. He also notes lower extremity edema but also scrotal edema which has been present for the past few weeks. States he was supposed to see a garden worker at [facility] but never did prior to discharge. Tested negative for COVID during his recent hospital stay according to patient. Denies fever, chills, productive cough. He notes a nonproductive cough which also is chronic. PMH: CHF with reduced ejection fraction, cardiomyopathy, HTN, COPD Allergies: Simvastatin Patient was admitted 3 days ago with cardiomyopathy and congestive heart failure Data reviewed Records reviewed Patient interviewed and examined Discussed with RN . Assessment/Plan Renal failure most likely secondary to cardiomyopathy and cardiorenal syndrome Acute CHF exacerbation on chronic with mild pulmonary edema and fluid overload Severe dilated cardiomyopathy with EF 10 to 15% COPD Moderate pulmonary hypertension Hypertension Anemia , iron panel suggestive of iron deficiency anemia Schizophrenia with hx of diagnosed Munchausen syndrome and malingering Liver cirrhosis, splenomegaly, thrombocytopenia Suggestions: Optimize cardiac status Watch and monitor renal parameters Avoid nephrotoxic's IV Venofer once, check CEA level, check stool for OB Afterload reduction and parameters for blood pressure medications Per orders I spent an additional 35 minutes on review of medical records including prior hospital records ,consult notes ,progress notes ,procedures ,imaging ,labs , hemodynamics ,and other clinical documentations Scout Coyd MD October 14, 2019 13:03
[2019-10-14] MEDS: Albuterol/Ipratropium 3ml neb HHN PRN ×2 (14:04→21:23)
--- NOTE | 2019-10-14 14:43 | Internal Med Progress Note ---
Subjective Date of Service: October 14, 2019 Physician Name BebaYousif Attending Physician Neftali Tinsley MD Current Medications Medications (Trade) Dose Ordered Sig/Marybeth Route PRN Reason Start Time Stop Time Status Last Admin Dose Admin Acetaminophen (Tylenol) 650 mg Q4H PRN ORAL T>100.5 10/11/19 21:00 11/10/19 20:59 Acetaminophen/ Hydrocodone Bitart ([place] 5/325) 1 tab Q6H PRN ORAL For Pain 10/11/19 23:45 10/18/19 23:44 10/14/19 08:57 Albuterol/ Ipratropium (Albuterol/ Ipratropium) 3 ml Q4H PRN HHN Shortness of Breath 10/11/19 21:00 10/16/19 20:59 10/14/19 14:04 Apixaban (Eliquis) 5 mg BID ORAL 10/12/19 18:00 01/10/20 17:59 10/14/19 08:58 Carvedilol (Coreg) 6.25 mg EVERY 12 HOURS ORAL 10/11/19 21:00 11/10/19 20:59 10/13/19 21:43 Dextrose (Dextrose 50%) 25 ml Q30M PRN IV Hypoglycemia 10/11/19 21:00 01/09/20 20:59 Dextrose (Dextrose 50%) 50 ml Q30MIN PRN IV Hypoglycemia 10/11/19 21:00 01/09/20 20:59 Docusate Sodium (Colace) 100 mg THREE TIMES A DAY ORAL 10/14/19 18:00 11/13/19 17:59 Furosemide (Lasix) 40 mg BID IV 10/12/19 18:00 11/11/19 17:59 10/14/19 09:00 Heparin Sodium (Porcine) (Heparin 5000 units/ml) 5,000 units EVERY 12 HOURS SUBQ 10/12/19 09:00 11/26/19 08:59 Hydralazine HCl (Apresoline) 10 mg EVERY 8 HOURS ORAL 10/14/19 14:00 01/09/20 21:59 10/14/19 13:34 Lisinopril (ZestriL) 5 mg DAILY ORAL 10/15/19 09:00 11/11/19 08:59 Morphine Sulfate (Morphine Sulfate) 2 mg Q4H PRN IVP For Pain 10/14/19 09:00 10/19/19 08:59 10/14/19 13:34 Ondansetron HCl (Zofran) 4 mg Q6H PRN IVP Nausea & Vomiting 10/11/19 21:00 11/10/19 20:59 Pantoprazole (Protonix) 40 mg EVERY 12 HOURS ORAL 10/14/19 13:15 11/13/19 13:14 10/14/19 13:34 Polyethylene Glycol (Miralax) 17 gm DAILYPRN PRN ORAL Constipation 10/11/19 21:00 11/10/19 20:59 Temazepam (Restoril) 15 mg HSPRN PRN ORAL Insomnia 10/11/19 21:00 10/18/19 20:59 Allergies: Coded Allergies: SIMVASTATIN (Verified Allergy, Unknown, 07/03/19) Uncoded Allergies: STATINS (Allergy, Unknown, 08/13/19) ROS Limited/Unobtainable: No Constitutional: Reports: no symptoms HEENT: Reports: no symptoms Cardiovascular: Reports: no symptoms Respiratory: Reports: no symptoms Gastrointestinal/Abdominal: Reports: no symptoms Genitourinary: Reports: no symptoms Neurologic/Psychiatric: Reports: no symptoms Subjective 54 YO M admitted with shortness of breath. Now Acute on chronic congestive heart failure. Cover for Int Med-Dr Tinsley. Shortness of breath improving. C/ O edema of midsection Objective Last Vital Signs Date Time Temp Pulse Resp B/P (MAP) Pulse Ox O2 Delivery O2 Flow Rate FiO2 10/14/19 14:04 104 18 100 Nasal Cannula 4.0 36 106 18 100 10/14/19 14:04 98.0 10/14/19 13:34 128/87 Laboratory Tests Test 10/14/19 06:50 White Blood Count 5.0 K/UL (4.8-10.8) Red Blood Count 3.28 M/UL (4.70-6.10) L Hemoglobin 10.0 G/DL (14.2-18.0) L Hematocrit 31.0 % (42.0-52.0) L Mean Corpuscular Volume 95 FL (80-99) Mean Corpuscular Hemoglobin 30.6 PG (27.0-31.0) Mean Corpuscular Hemoglobin Concent 32.3 G/DL (32.0-36.0) Red Cell Distribution Width 16.2 % (11.6-14.8) H Platelet Count 81 K/UL (150-450) L Mean Platelet Volume 7.5 FL (6.5-10.1) Neutrophils (%) (Auto) % (45.0-75.0) Lymphocytes (%) (Auto) % (20.0-45.0) Monocytes (%) (Auto) % (1.0-10.0) Eosinophils (%) (Auto) % (0.0-3.0) Basophils (%) (Auto) % (0.0-2.0) Differential Total Cells Counted 100 Neutrophils % (Manual) 58 % (45-75) Lymphocytes % (Manual) 24 % (20-45) Monocytes % (Manual) 12 % (1-10) H Eosinophils % (Manual) 4 % (0-3) H Basophils % (Manual) 2 % (0-2) Band Neutrophils 0 % (0-8) Platelet Estimate Decreased L Platelet Morphology Normal Hypochromasia 2+ Anisocytosis 1+ Sodium Level 141 MMOL/L (136-145) Potassium Level 4.1 MMOL/L (3.5-5.1) Chloride Level 100 MMOL/L (98-107) Carbon Dioxide Level 36 MMOL/L (21-32) H Anion Gap 5 mmol/L (5-15) Blood Urea Nitrogen 28 mg/dL (7-18) H Creatinine 1.5 MG/DL (0.55-1.30) H Estimat Glomerular Filtration Rate 59.4 mL/min (>60) Glucose Level 134 MG/DL (74-106) H Calcium Level 8.2 MG/DL (8.5-10.1) L Ferritin 45 NG/ML (8-388) Pro-B-Type Natriuretic Peptide 2171 pg/mL (0-125) H Intake and Output 10/13/19 10/14/19 19:00 07:00 Intake Total 350 ml 800 ml Output Total 1600 ml Balance 350 ml -800 ml Intake Oral 350 ml Other 800 ml Output Urine Total 1600 ml # Voids 3 Objective PHYSICAL EXAMINATION: GENERAL: Patient is awake and responsive. No acute distress. HEAD AND NECK: Pupils are equal and reactive to light. Extraocular movements are intact. Neck was supple. Positive JVD. LUNGS: Good air entry. Decreased air in bases. No wheezing or rhonchi. HEART: S1, S2. Tachycardic. Distant heart sounds. No murmur or gallops. ABDOMEN: Soft, nondistended, nontender. Positive bowel sounds. Morbidly obese. GENITOURINARY: Noted scrotal edema. No tenderness. No erythema. EXTREMITIES: No cyanosis or clubbing. +2 edema bilateral lower extremity with hyperpigmentation around both lower extremities. NEUROLOGIC: Cranial nerves II through XII grossly intact. Motor is 5/5 in all extremities. Gait was not assessed due to patient's status. RECTAL: Exam refused and deferred. PSYCHIATRIC: Mood and affect is calm and relaxed at this time, but he has history of schizophrenia. Assessment/Plan Assessment/Plan ASSESSMENT: 1. Acute CHF exacerbation on chronic with mild pulmonary edema and fluid overload. LVEF=10-15% 2. Hypertension. 3. Morbid obesity. 4. Atrial flutter. 5. History of paranoid schizophrenia and malingering. 6. History of Graves disease. 7. Prediabetic. 8. History of lower extremity chronic edema. 9. Anemia. 10. Chronic kidney disease. PLAN: 1. Admit patient to monitored unit. 2. Dr. Tone Chapman = Cardiology consult 3. Dr. Mccray=Pulmonary Critical Care. 4. Lasix IV 40 mg twice a day. 5. Code status is Full Code. 6. DVT prophylaxis=Eliquis. Yousif Yoder MD October 14, 2019 14:43
[2019-10-14 16:00] VITALS: BP 103/74
[2019-10-14] MEDS: Docusate 100mg cap ORAL SCH (17:37)
[2019-10-14 20:00] VITALS: BP 114/99
[2019-10-15] VITALS (7 sets, daily range): BP systolic 90–121; BP diastolic 59–89
[2019-10-15] MEDS: HydrALAZINE 10mg Tab ORAL SCH (06:00)
[2019-10-15 07:41] LABS: HEMATOCRIT 30.3 % (42.0-52.0); HEMOGLOBIN 9.9 G/DL (14.2-18.0); MEAN CORPUSCULAR VOLUME 95 FL (80-99); PLATELET COUNT 73 K/UL (150-450); RED CELL DISTRIBUTION WIDTH 15.3 % (11.6-14.8); WHITE BLOOD COUNT 4.7 K/UL (4.8-10.8)
[2019-10-15 07:42] LABS: AMMONIA 55 umol/L (11-32)
[2019-10-15 08:08] LABS: ALANINE AMINOTRANSFERASE 19 U/L (12-78); ALBUMIN 3.5 G/DL (3.4-5.0); ALKALINE PHOSPHATASE 80 U/L (46-116); ANION GAP 5 mmol/L (5-15); ASPARTATE AMINO TRANSFERASE 33 U/L (15-37); BILIRUBIN,TOTAL 0.5 MG/DL (0.2-1.0); BLOOD UREA NITROGEN 27 mg/dL (7-18); CALCIUM 8.2 MG/DL (8.5-10.1); CARBON DIOXIDE 34 MMOL/L (21-32); CHLORIDE 100 MMOL/L (98-107); CREATINE KINASE 196 U/L (26-308); CREATININE 1.5 MG/DL (0.55-1.30); GAMMA GLUTAMYL TRANSPEPTIDASE 44 U/L (5-85); LACTATE DEHYDROGENASE 279 U/L (81-234); PHOSPHORUS 3.9 MG/DL (2.5-4.9); POTASSIUM 3.8 MMOL/L (3.5-5.1); SODIUM 139 MMOL/L (136-145)
[2019-10-15] MEDS: Albuterol/Ipratropium 3ml neb HHN PRN ×2 (08:25→12:28)
[2019-10-15] MEDS: Heparin 5000 units/ml inj SUBQ SCH ×2 (09:00→21:00)
[2019-10-15] MEDS: Docusate 100mg cap ORAL SCH ×3 (09:05→18:00)
[2019-10-15] MEDS: Carvedilol 6.25mg Tab ORAL SCH ×2 (09:05→21:30)
[2019-10-15] MEDS: Eliquis 5mg tablet ORAL SCH ×2 (09:05→18:05)
[2019-10-15] MEDS: Lisinopril 2.5mg tab ORAL SCH (09:06)
--- NOTE | 2019-10-15 09:17 | Pulmonology Progress Note ---
Subjective ROS Limited/Unobtainable: No Allergies: Coded Allergies: SIMVASTATIN (Verified Allergy, Unknown, 07/03/19) Uncoded Allergies: STATINS (Allergy, Unknown, 08/13/19) Subjective on O2 4 L via NC, no signs of resp distress remains afebrile Objective Last 24 Hour Vital Signs Date Time Temp Pulse Resp B/P (MAP) Pulse Ox O2 Delivery O2 Flow Rate FiO2 10/15/19 09:06 112/65 10/15/19 09:05 108 112/65 10/15/19 08:28 108 18 100 Nasal Cannula 4.0 36 106 18 97 10/15/19 08:28 97 Nasal Cannula 4.0 36 10/15/19 08:00 98.1 51 18 112/65 (81) 96 10/15/19 06:00 90/60 10/15/19 04:00 97.9 109 22 90/60 (70) 94 10/15/19 04:00 109 10/15/19 00:00 97.0 106 22 121/80 (94) 100 10/15/19 00:00 109 10/14/19 22:03 114/75 10/14/19 21:59 90 114/99 10/14/19 21:24 90 10/14/19 21:23 92 18 100 Nasal Cannula 4.0 36 95 18 100 10/14/19 21:00 Nasal Cannula 2.0 10/14/19 20:00 109 10/14/19 20:00 Nasal Cannula 2.0 10/14/19 20:00 97.0 56 24 114/99 (104) 100 10/14/19 19:00 100 Nasal Cannula 4.0 36 10/14/19 16:00 98.0 109 20 103/74 (84) 96 10/14/19 16:00 109 10/14/19 14:04 104 18 100 Nasal Cannula 4.0 36 106 18 100 10/14/19 14:04 98.0 10/14/19 13:34 128/87 10/14/19 12:00 98.0 101 20 128/87 (101) 98 10/14/19 12:00 109 10/14/19 09:27 97.9 Intake and Output 10/14/19 10/15/19 19:00 07:00 Intake Total 300 ml 240 ml Output Total 800 ml Balance 300 ml -560 ml Intake Oral 300 ml Other 240 ml Output Urine Total 800 ml # Voids 5 5 # Bowel Movements 1 Objective General Appearance: AA male in NAD HEENT: normocephalic, atraumatic, anicteric, mucous membranes moist Respiratory: no respiratory distress, no accessory muscle use, decreased breath sounds Cardiovascular: normal rate Abdomen: normal bowel sounds, soft, non tender - obese Extremities: other - +1 edema BLE Neurologic: alert, oriented x 3, responsive, other - no focal deficits, flat affect Musculoskeletal: normal muscle bulk Laboratory Tests 10/15/19 06:42: White Blood Count 4.7L, Red Blood Count 3.20L, Hemoglobin 9.9L, Hematocrit 30.3L , Mean Corpuscular Volume 95, Mean Corpuscular Hemoglobin 31.0, Mean Corpuscular Hemoglobin Concent 32.7, Red Cell Distribution Width 15.3H, Platelet Count 73L, Mean Platelet Volume 8.0, Neutrophils (%) (Auto) , Lymphocytes (%) (Auto) , Monocytes (%) (Auto) , Eosinophils (%) (Auto) , Basophils (%) (Auto) , Neutrophils % (Manual) [Pending], Lymphocytes % (Manual) [Pending], Platelet Estimate [Pending], Platelet Morphology [Pending], Sodium Level 139, Potassium Level 3.8, Chloride Level 100, Carbon Dioxide Level 34H, Anion Gap 5, Blood Urea Nitrogen 27H, Creatinine 1.5H, Estimat Glomerular Filtration Rate 59.4, Glucose Level 148H, Hemoglobin A1c 6.1H, Uric Acid 8.7H, Calcium Level 8.2L, Phosphorus Level 3.9, Magnesium Level 1.9, Total Bilirubin 0.5, Gamma Glutamyl Transpeptidase 44, Aspartate Amino Transf (AST/SGOT) 33, Alanine Aminotransferase (ALT/SGPT) 19, Alkaline Phosphatase 80, Ammonia 55H, Lactate Dehydrogenase 279H, Total Creatine Kinase 196, C-Reactive Protein, Quantitative 1.9H, Pro-B-Type Natriuretic Peptide 1962H, Total Protein 6.9, Albumin 3.5, Globulin 3.4, Albumin/Globulin Ratio 1.0, Carcinoembryonic Antigen [Pending] Current Medications Medications (Trade) Dose Ordered Sig/Marybeth Route PRN Reason Start Time Stop Time Status Last Admin Dose Admin Acetaminophen (Tylenol) 650 mg Q4H PRN ORAL T>100.5 10/11/19 21:00 11/10/19 20:59 Acetaminophen/ Hydrocodone Bitart ([place] 5/325) 1 tab Q6H PRN ORAL For Pain 10/11/19 23:45 10/18/19 23:44 10/14/19 08:57 Albuterol/ Ipratropium (Albuterol/ Ipratropium) 3 ml Q4H PRN HHN Shortness of Breath 10/11/19 21:00 10/16/19 20:59 10/15/19 08:25 Apixaban (Eliquis) 5 mg BID ORAL 10/12/19 18:00 01/10/20 17:59 10/15/19 09:05 Carvedilol (Coreg) 6.25 mg EVERY 12 HOURS ORAL 10/11/19 21:00 11/10/19 20:59 10/15/19 09:05 Dextrose (Dextrose 50%) 25 ml Q30M PRN IV Hypoglycemia 10/11/19 21:00 01/09/20 20:59 Dextrose (Dextrose 50%) 50 ml Q30MIN PRN IV Hypoglycemia 10/11/19 21:00 01/09/20 20:59 Docusate Sodium (Colace) 100 mg THREE TIMES A DAY ORAL 10/14/19 18:00 11/13/19 17:59 10/15/19 09:05 Furosemide (Lasix) 40 mg BID IV 10/12/19 18:00 11/11/19 17:59 10/14/19 17:37 Heparin Sodium (Porcine) (Heparin 5000 units/ml) 5,000 units EVERY 12 HOURS SUBQ 10/12/19 09:00 11/26/19 08:59 Hydralazine HCl (Apresoline) 10 mg EVERY 8 HOURS ORAL 10/14/19 14:00 01/09/20 21:59 10/14/19 22:03 Lisinopril (ZestriL) 5 mg DAILY ORAL 10/15/19 09:00 11/11/19 08:59 10/15/19 09:06 Morphine Sulfate (Morphine Sulfate) 2 mg Q4H PRN IVP For Pain 10/14/19 09:00 10/19/19 08:59 10/14/19 13:34 Ondansetron HCl (Zofran) 4 mg Q6H PRN IVP Nausea & Vomiting 10/11/19 21:00 11/10/19 20:59 Pantoprazole (Protonix) 40 mg EVERY 12 HOURS ORAL 10/14/19 13:15 11/13/19 13:14 10/15/19 09:05 Polyethylene Glycol (Miralax) 17 gm DAILYPRN PRN ORAL Constipation 10/11/19 21:00 11/10/19 20:59 Temazepam (Restoril) 15 mg HSPRN PRN ORAL Insomnia 10/11/19 21:00 10/18/19 20:59 Assessment/Plan Assessment/Plan ASSESSMENT Shortness of breath Acute on chronic CHF exacerbation with mild pulmonary edema and fluid overload Severe dilated cardiomyopathy with EF 10 to 15% COPD Moderate pulmonary hypertension Hypertension Anemia 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 Liver cirrhosis PLAN OF CARE tele diuresis with close monitoring of volumes and cardiorenal parameters O2, titrate to keep sat above 92% pulmonary toilet with HHN prior testing negative for COVID CXR noted fup CXR 10/11 no changes from initial DVT prophylaxis Echo with EF 10 to 15% , mild to moderate mitral regurgitation and moderate pulmonary hypertension per cardio had DCM and last cath in 2017 no evidence of CAD a/PLT therapy/ASA and BB guideline directed medical therapy for CHF with BB, THO and diuretic, monitor volumes pro BNP trending down Lasix decreased to bid due to worsening creat, BP management with BB, THO inhibitor , hydralazine and Lasix fup with cardio recs monitor renal parameters, correct lytes as needed , creat with no change abd US with mild hepatomegaly . Nodular contour of the liver suggestive of cirrhosis. Probable hepatic steatosis. Small amount of ascites. Mildly enlarged spleen . Nonspecific gallbladder wall thickening. may be related to underlying liver disease. monitor HH with goal to keep Hgb above 7,remains at baseline anemia w/up noted supportive care case discussed and evaluated by supervising physician Hattie Fox NP October 15, 2019 09:16
[2019-10-15] MEDS: Allopurinol 100mg Tab ORAL SCH (10:41)
[2019-10-15] MEDS ORDERED: Iron Sucrose 200 MG in NS 110 ML IV ONE (11:00)
--- NOTE | 2019-10-15 11:07 | Nephrology Progress Note ---
Assessment/Plan Problem List: (1) Acute on chronic renal insufficiency (2) Anemia Assessment: Appears to be iron deficiency (3) CHF (congestive heart failure) Assessment: With severe cardiomyopathy due to low ejection fraction (4) Pulmonary HTN Assessment Renal failure most likely secondary to cardiomyopathy and cardiorenal syndrome Acute CHF exacerbation on chronic with mild pulmonary edema and fluid overload Severe dilated cardiomyopathy with EF 10 to 15% COPD Moderate pulmonary hypertension Hypertension Anemia , iron panel suggestive of iron deficiency anemia Schizophrenia with hx of diagnosed Munchausen syndrome and malingering Liver cirrhosis, splenomegaly, thrombocytopenia Plan Intravenous iron Optimize cardiac status Digoxin 0.25 mg once p.o. Watch and monitor renal parameters Avoid nephrotoxic's IV Venofer once, check CEA level, check stool for OB Afterload reduction and parameters for blood pressure medications Per orders Objective Objective Last 24 Hour Vital Signs Date Time Temp Pulse Resp B/P (MAP) Pulse Ox O2 Delivery O2 Flow Rate FiO2 10/15/19 09:06 112/65 10/15/19 09:05 108 112/65 10/15/19 08:28 108 18 100 Nasal Cannula 4.0 36 106 18 97 10/15/19 08:28 97 Nasal Cannula 4.0 36 10/15/19 08:00 87 10/15/19 08:00 98.1 51 18 112/65 (81) 96 10/15/19 06:00 90/60 10/15/19 04:00 97.9 109 22 90/60 (70) 94 10/15/19 04:00 109 10/15/19 00:00 97.0 106 22 121/80 (94) 100 10/15/19 00:00 109 10/14/19 22:03 114/75 10/14/19 21:59 90 114/99 10/14/19 21:24 90 10/14/19 21:23 92 18 100 Nasal Cannula 4.0 36 95 18 100 10/14/19 21:00 Nasal Cannula 2.0 10/14/19 20:00 109 10/14/19 20:00 Nasal Cannula 2.0 10/14/19 20:00 97.0 56 24 114/99 (104) 100 10/14/19 19:00 100 Nasal Cannula 4.0 36 10/14/19 16:00 98.0 109 20 103/74 (84) 96 10/14/19 16:00 109 10/14/19 14:04 104 18 100 Nasal Cannula 4.0 36 106 18 100 10/14/19 14:04 98.0 10/14/19 13:34 128/87 10/14/19 12:00 98.0 101 20 128/87 (101) 98 10/14/19 12:00 109 Intake and Output 10/14/19 10/15/19 19:00 07:00 Intake Total 300 ml 240 ml Output Total 800 ml Balance 300 ml -560 ml Intake Oral 300 ml Other 240 ml Output Urine Total 800 ml # Voids 5 5 # Bowel Movements 1 Laboratory Tests 10/15/19 06:42: White Blood Count 4.7L, Red Blood Count 3.20L, Hemoglobin 9.9L, Hematocrit 30.3L , Mean Corpuscular Volume 95, Mean Corpuscular Hemoglobin 31.0, Mean Corpuscular Hemoglobin Concent 32.7, Red Cell Distribution Width 15.3H, Platelet Count 73L, Mean Platelet Volume 8.0, Neutrophils (%) (Auto) , Lymphocytes (%) (Auto) , Monocytes (%) (Auto) , Eosinophils (%) (Auto) , Basophils (%) (Auto) , Differential Total Cells Counted 100, Neutrophils % ( Manual) 63, Lymphocytes % (Manual) 20, Monocytes % (Manual) 13H, Eosinophils % ( Manual) 4H, Basophils % (Manual) 0, Band Neutrophils 0, Platelet Estimate DecreasedL, Platelet Morphology Normal, Hypochromasia 1+, Anisocytosis 1+, Sodium Level 139, Potassium Level 3.8, Chloride Level 100, Carbon Dioxide Level 34H, Anion Gap 5, Blood Urea Nitrogen 27H, Creatinine 1.5H, Estimat Glomerular Filtration Rate 59.4, Glucose Level 148H, Hemoglobin A1c 6.1H, Uric Acid 8.7H, Calcium Level 8.2L, Phosphorus Level 3.9, Magnesium Level 1.9, Total Bilirubin 0.5, Gamma Glutamyl Transpeptidase 44, Aspartate Amino Transf (AST/SGOT) 33, Alanine Aminotransferase (ALT/SGPT) 19, Alkaline Phosphatase 80, Ammonia 55H, Lactate Dehydrogenase 279H, Total Creatine Kinase 196, C-Reactive Protein, Quantitative 1.9H, Pro-B-Type Natriuretic Peptide 1962H, Total Protein 6.9, Albumin 3.5, Globulin 3.4, Albumin/Globulin Ratio 1.0, Carcinoembryonic Antigen [Pending] Height (Feet): 5 Height (Inches): 6.00 Weight (Pounds): 178 Scout Cody MD October 15, 2019 11:07
[2019-10-15 11:59] LABS: APPEARANCE,URINE CLEAR; BILIRUBIN, URINE NEGATIVE (NEGATIVE); GLUCOSE, URINE (UA) NEGATIVE (NEGATIVE); KETONES,URINE NEGATIVE (NEGATIVE); LEUKOCYTE ESTERASE ,URINE 1+ (NEGATIVE); NITRITE,URINE NEGATIVE (NEGATIVE); PH,URINE 5 (4.5-8.0); PROTEIN,URINE 2+ (NEGATIVE); UROBILINOGEN,URINE 1 MG/DL (0.0-1.0)
[2019-10-15 12:02] LABS: COLOR,URINE YELLOW
--- NOTE | 2019-10-15 13:58 | Internal Med Progress Note ---
Subjective Date of Service: October 15, 2019 Physician Name BebaYousif Attending Physician Neftali Tinsley MD Current Medications Medications (Trade) Dose Ordered Sig/Marybeth Route PRN Reason Start Time Stop Time Status Last Admin Dose Admin Acetaminophen (Tylenol) 650 mg Q4H PRN ORAL T>100.5 10/11/19 21:00 11/10/19 20:59 Acetaminophen/ Hydrocodone Bitart ([place] 5/325) 1 tab Q6H PRN ORAL For Pain 10/11/19 23:45 10/18/19 23:44 10/14/19 08:57 Albuterol/ Ipratropium (Albuterol/ Ipratropium) 3 ml Q4H PRN HHN Shortness of Breath 10/11/19 21:00 10/16/19 20:59 10/15/19 12:28 Allopurinol (Zyloprim) 200 mg DAILY ORAL 10/15/19 09:45 11/14/19 09:44 10/15/19 10:41 Apixaban (Eliquis) 5 mg BID ORAL 10/12/19 18:00 01/10/20 17:59 10/15/19 09:05 Carvedilol (Coreg) 6.25 mg EVERY 12 HOURS ORAL 10/11/19 21:00 11/10/19 20:59 10/15/19 09:05 Dextrose (Dextrose 50%) 25 ml Q30M PRN IV Hypoglycemia 10/11/19 21:00 01/09/20 20:59 Dextrose (Dextrose 50%) 50 ml Q30MIN PRN IV Hypoglycemia 10/11/19 21:00 01/09/20 20:59 Docusate Sodium (Colace) 100 mg THREE TIMES A DAY ORAL 10/14/19 18:00 11/13/19 17:59 10/15/19 09:05 Furosemide (Lasix) 40 mg BID IV 10/12/19 18:00 11/11/19 17:59 10/14/19 17:37 Heparin Sodium (Porcine) (Heparin 5000 units/ml) 5,000 units EVERY 12 HOURS SUBQ 10/12/19 09:00 11/26/19 08:59 Iron Sucrose 100 mg/Sodium Chloride 60 ml @ 240 mls/hr BEDTIME IV 10/16/19 21:00 10/20/19 21:14 Lisinopril (ZestriL) 5 mg DAILY ORAL 10/15/19 09:00 11/11/19 08:59 10/15/19 09:06 Morphine Sulfate (Morphine Sulfate) 2 mg Q4H PRN IVP For Pain 10/14/19 09:00 10/19/19 08:59 10/14/19 13:34 Ondansetron HCl (Zofran) 4 mg Q6H PRN IVP Nausea & Vomiting 10/11/19 21:00 11/10/19 20:59 Pantoprazole (Protonix) 40 mg EVERY 12 HOURS ORAL 10/14/19 13:15 11/13/19 13:14 10/15/19 09:05 Polyethylene Glycol (Miralax) 17 gm DAILYPRN PRN ORAL Constipation 10/11/19 21:00 11/10/19 20:59 Temazepam (Restoril) 15 mg HSPRN PRN ORAL Insomnia 10/11/19 21:00 10/18/19 20:59 Allergies: Coded Allergies: SIMVASTATIN (Verified Allergy, Unknown, 07/03/19) Uncoded Allergies: STATINS (Allergy, Unknown, 08/13/19) ROS Limited/Unobtainable: No Constitutional: Reports: no symptoms HEENT: Reports: no symptoms Cardiovascular: Reports: no symptoms Respiratory: Reports: no symptoms Gastrointestinal/Abdominal: Reports: no symptoms Genitourinary: Reports: no symptoms Neurologic/Psychiatric: Reports: no symptoms Subjective 54 YO M admitted with shortness of breath. Now Acute on chronic congestive heart failure. Cover for Int Neal-Dr Tinsley. Shortness of breath improving. C/ O edema of midsection Objective Last Vital Signs Date Time Temp Pulse Resp B/P (MAP) Pulse Ox O2 Delivery O2 Flow Rate FiO2 10/15/19 12:29 109 17 100 Nasal Cannula 4.0 36 109 18 99 10/15/19 12:00 96.6 117/77 (90) Laboratory Tests Test 10/15/19 06:42 10/15/19 11:30 White Blood Count 4.7 K/UL (4.8-10.8) L Red Blood Count 3.20 M/UL (4.70-6.10) L Hemoglobin 9.9 G/DL (14.2-18.0) L Hematocrit 30.3 % (42.0-52.0) L Mean Corpuscular Volume 95 FL (80-99) Mean Corpuscular Hemoglobin 31.0 PG (27.0-31.0) Mean Corpuscular Hemoglobin Concent 32.7 G/DL (32.0-36.0) Red Cell Distribution Width 15.3 % (11.6-14.8) H Platelet Count 73 K/UL (150-450) L Mean Platelet Volume 8.0 FL (6.5-10.1) Neutrophils (%) (Auto) % (45.0-75.0) Lymphocytes (%) (Auto) % (20.0-45.0) Monocytes (%) (Auto) % (1.0-10.0) Eosinophils (%) (Auto) % (0.0-3.0) Basophils (%) (Auto) % (0.0-2.0) Differential Total Cells Counted 100 Neutrophils % (Manual) 63 % (45-75) Lymphocytes % (Manual) 20 % (20-45) Monocytes % (Manual) 13 % (1-10) H Eosinophils % (Manual) 4 % (0-3) H Basophils % (Manual) 0 % (0-2) Band Neutrophils 0 % (0-8) Platelet Estimate Decreased L Platelet Morphology Normal Hypochromasia 1+ Anisocytosis 1+ Sodium Level 139 MMOL/L (136-145) Potassium Level 3.8 MMOL/L (3.5-5.1) Chloride Level 100 MMOL/L (98-107) Carbon Dioxide Level 34 MMOL/L (21-32) H Anion Gap 5 mmol/L (5-15) Blood Urea Nitrogen 27 mg/dL (7-18) H Creatinine 1.5 MG/DL (0.55-1.30) H Estimat Glomerular Filtration Rate 59.4 mL/min (>60) Glucose Level 148 MG/DL (74-106) H Hemoglobin A1c 6.1 % (4.3-6.0) H Uric Acid 8.7 MG/DL (2.6-7.2) H Calcium Level 8.2 MG/DL (8.5-10.1) L Phosphorus Level 3.9 MG/DL (2.5-4.9) Magnesium Level 1.9 MG/DL (1.8-2.4) Total Bilirubin 0.5 MG/DL (0.2-1.0) Gamma Glutamyl Transpeptidase 44 U/L (5-85) Aspartate Amino Transf (AST/SGOT) 33 U/L (15-37) Alanine Aminotransferase (ALT/SGPT) 19 U/L (12-78) Alkaline Phosphatase 80 U/L (46-116) Ammonia 55 umol/L (11-32) H Lactate Dehydrogenase 279 U/L (81-234) H Total Creatine Kinase 196 U/L (26-308) C-Reactive Protein, Quantitative 1.9 mg/dL (0.00-0.90) H Pro-B-Type Natriuretic Peptide 1962 pg/mL (0-125) H Total Protein 6.9 G/DL (6.4-8.2) Albumin 3.5 G/DL (3.4-5.0) Globulin 3.4 g/dL Albumin/Globulin Ratio 1.0 (1.0-2.7) Carcinoembryonic Antigen Pending Urine Color Yellow Urine Appearance Clear Urine pH 5 (4.5-8.0) Urine Specific [place] 1.020 (1.005-1.035) Urine Protein 2+ (NEGATIVE) H Urine Glucose (UA) Negative (NEGATIVE) Urine Ketones Negative (NEGATIVE) Urine Blood Negative (NEGATIVE) Urine Nitrite Negative (NEGATIVE) Urine Bilirubin Negative (NEGATIVE) Urine Urobilinogen 1 MG/DL (0.0-1.0) H Urine Leukocyte Esterase 1+ (NEGATIVE) H Urine RBC 0-2 /HPF (0 - 0) H Urine WBC 0-2 /HPF (0 - 0) Urine Squamous Epithelial Cells Occasional /LPF Urine Bacteria Few /HPF (NONE) Intake and Output 10/14/19 10/15/19 19:00 07:00 Intake Total 300 ml 240 ml Output Total 800 ml Balance 300 ml -560 ml Intake Oral 300 ml Other 240 ml Output Urine Total 800 ml # Voids 5 5 # Bowel Movements 1 Objective PHYSICAL EXAMINATION: GENERAL: Patient is awake and responsive. No acute distress. HEAD AND NECK: Pupils are equal and reactive to light. Extraocular movements are intact. Neck was supple. Positive JVD. LUNGS: Good air entry. Decreased air in bases. No wheezing or rhonchi. HEART: S1, S2. Tachycardic. Distant heart sounds. No murmur or gallops. ABDOMEN: Soft, nondistended, nontender. Positive bowel sounds. Morbidly obese. GENITOURINARY: Noted scrotal edema. No tenderness. No erythema. EXTREMITIES: No cyanosis or clubbing. +2 edema bilateral lower extremity with hyperpigmentation around both lower extremities. NEUROLOGIC: Cranial nerves II through XII grossly intact. Motor is 5/5 in all extremities. Gait was not assessed due to patient's status. RECTAL: Exam refused and deferred. PSYCHIATRIC: Mood and affect is calm and relaxed at this time, but he has history of schizophrenia. Assessment/Plan Assessment/Plan ASSESSMENT: 1. Acute CHF exacerbation on chronic with mild pulmonary edema and fluid overload. LVEF=10-15% 2. Hypertension. 3. Morbid obesity. 4. Atrial flutter. 5. History of paranoid schizophrenia and malingering. 6. History of Graves disease. 7. Prediabetic. 8. History of lower extremity chronic edema. 9. Anemia. 10. Chronic kidney disease. PLAN: 1. Admit patient to monitored unit. 2. Dr. Tone Chapman = Cardiology consult 3. Dr. Mccray=Pulmonary Critical Care. 4. Lasix IV 40 mg twice a day. 5. Code status is Full Code. 6. DVT prophylaxis=Eliquis. Yousif Yoder MD October 15, 2019 13:58
[2019-10-15] MEDS: Iron Sucrose 200 MG in NS 110 ML IV ONE ×2 (15:30→15:58)
[2019-10-15] MEDS: Morphine Sulfate 2mg/ml Inj(IV/IM USE ONLY) IVP PRN ×2 (15:39→21:22)
--- NOTE | 2019-10-15 18:21 | Cardiology Progress Note ---
Assessment/Plan Assessment/Plan chronic CHF, compensated chronic atrial flutter, rate controolled Subjective Subjective Coverage for Dr Chapman The patient is sitting in his bed, he denies chest pain, his shortness of breath is at baseline, he slept well at night Objective Last 24 Hour Vital Signs Date Time Temp Pulse Resp B/P (MAP) Pulse Ox O2 Delivery O2 Flow Rate FiO2 10/15/19 16:00 98.2 66 20 119/59 (79) 97 10/15/19 16:00 110 10/15/19 12:29 109 17 100 Nasal Cannula 4.0 36 109 18 99 10/15/19 12:00 83 10/15/19 12:00 96.6 57 19 117/77 (90) 98 10/15/19 11:46 108 10/15/19 09:06 112/65 10/15/19 09:05 108 112/65 10/15/19 09:00 Nasal Cannula 2.0 10/15/19 08:28 108 18 100 Nasal Cannula 4.0 36 106 18 97 10/15/19 08:28 97 Nasal Cannula 4.0 36 10/15/19 08:00 87 10/15/19 08:00 98.1 51 18 112/65 (81) 96 10/15/19 06:00 90/60 10/15/19 04:00 97.9 109 22 90/60 (70) 94 10/15/19 04:00 109 10/15/19 00:00 97.0 106 22 121/80 (94) 100 10/15/19 00:00 109 10/14/19 22:03 114/75 10/14/19 21:59 90 114/99 10/14/19 21:24 90 10/14/19 21:23 92 18 100 Nasal Cannula 4.0 36 95 18 100 10/14/19 21:00 Nasal Cannula 2.0 10/14/19 20:00 109 10/14/19 20:00 Nasal Cannula 2.0 10/14/19 20:00 97.0 56 24 114/99 (104) 100 10/14/19 19:00 100 Nasal Cannula 4.0 36 General Appearance: no apparent distress, obese EENT: PERRL/EOMI Neck: JVD Rhythm: NSR Cardiovascular: normal rate Respiratory/Chest: rhonchi - bilaterally Abdomen: soft Extremities: moderate edema Intake and Output 5/24/20 5/25/20 19:00 07:00 Intake Total 300 ml 240 ml Output Total 800 ml Balance 300 ml -560 ml Intake Oral 300 ml Other 240 ml Output Urine Total 800 ml # Voids 5 5 # Bowel Movements 1 Laboratory Tests Test 10/15/19 06:42 10/15/19 11:30 White Blood Count 4.7 K/UL (4.8-10.8) L Red Blood Count 3.20 M/UL (4.70-6.10) L Hemoglobin 9.9 G/DL (14.2-18.0) L Hematocrit 30.3 % (42.0-52.0) L Mean Corpuscular Volume 95 FL (80-99) Mean Corpuscular Hemoglobin 31.0 PG (27.0-31.0) Mean Corpuscular Hemoglobin Concent 32.7 G/DL (32.0-36.0) Red Cell Distribution Width 15.3 % (11.6-14.8) H Platelet Count 73 K/UL (150-450) L Mean Platelet Volume 8.0 FL (6.5-10.1) Neutrophils (%) (Auto) % (45.0-75.0) Lymphocytes (%) (Auto) % (20.0-45.0) Monocytes (%) (Auto) % (1.0-10.0) Eosinophils (%) (Auto) % (0.0-3.0) Basophils (%) (Auto) % (0.0-2.0) Differential Total Cells Counted 100 Neutrophils % (Manual) 63 % (45-75) Lymphocytes % (Manual) 20 % (20-45) Monocytes % (Manual) 13 % (1-10) H Eosinophils % (Manual) 4 % (0-3) H Basophils % (Manual) 0 % (0-2) Band Neutrophils 0 % (0-8) Platelet Estimate Decreased L Platelet Morphology Normal Hypochromasia 1+ Anisocytosis 1+ Sodium Level 139 MMOL/L (136-145) Potassium Level 3.8 MMOL/L (3.5-5.1) Chloride Level 100 MMOL/L (98-107) Carbon Dioxide Level 34 MMOL/L (21-32) H Anion Gap 5 mmol/L (5-15) Blood Urea Nitrogen 27 mg/dL (7-18) H Creatinine 1.5 MG/DL (0.55-1.30) H Estimat Glomerular Filtration Rate 59.4 mL/min (>60) Glucose Level 148 MG/DL (74-106) H Hemoglobin A1c 6.1 % (4.3-6.0) H Uric Acid 8.7 MG/DL (2.6-7.2) H Calcium Level 8.2 MG/DL (8.5-10.1) L Phosphorus Level 3.9 MG/DL (2.5-4.9) Magnesium Level 1.9 MG/DL (1.8-2.4) Total Bilirubin 0.5 MG/DL (0.2-1.0) Gamma Glutamyl Transpeptidase 44 U/L (5-85) Aspartate Amino Transf (AST/SGOT) 33 U/L (15-37) Alanine Aminotransferase (ALT/SGPT) 19 U/L (12-78) Alkaline Phosphatase 80 U/L (46-116) Ammonia 55 umol/L (11-32) H Lactate Dehydrogenase 279 U/L (81-234) H Total Creatine Kinase 196 U/L (26-308) C-Reactive Protein, Quantitative 1.9 mg/dL (0.00-0.90) H Pro-B-Type Natriuretic Peptide 1962 pg/mL (0-125) H Total Protein 6.9 G/DL (6.4-8.2) Albumin 3.5 G/DL (3.4-5.0) Globulin 3.4 g/dL Albumin/Globulin Ratio 1.0 (1.0-2.7) Carcinoembryonic Antigen Pending Urine Color Yellow Urine Appearance Clear Urine pH 5 (4.5-8.0) Urine Specific [place] 1.020 (1.005-1.035) Urine Protein 2+ (NEGATIVE) H Urine Glucose (UA) Negative (NEGATIVE) Urine Ketones Negative (NEGATIVE) Urine Blood Negative (NEGATIVE) Urine Nitrite Negative (NEGATIVE) Urine Bilirubin Negative (NEGATIVE) Urine Urobilinogen 1 MG/DL (0.0-1.0) H Urine Leukocyte Esterase 1+ (NEGATIVE) H Urine RBC 0-2 /HPF (0 - 0) H Urine WBC 0-2 /HPF (0 - 0) Urine Squamous Epithelial Cells Occasional /LPF Urine Bacteria Few /HPF (NONE) Bailee Owens MD October 15, 2019:21
--- NOTE | 2019-10-15 19:45 | Progress Note ---
DATE: 10/14/2019 SUBJECTIVE: The patient is sitting on his bed and he reports that his dyspnea is much better. I asked him how he is sleeping. He said he is sleeping fine on 1 pillow. His lower extremity edema is moderate. PHYSICAL EXAMINATION: GENERAL: This is a chronically ill-appearing gentleman. VITAL SIGNS: His blood pressure is 114/99, and his heart rate is 90 beats per minute. He is in atrial fib/flutter. VITAL SIGNS: Heart rate is irregular. Oxygen saturation on room air is 94%. HEENT: PERRLA, EOMI. NECK: Veins are distended. Carotid upstroke is palpable bilaterally. LUNGS: He has only scattered few crackles. HEART: Regular and very distant. PMI in his 7 intercostal space in the anterior axillary line. ABDOMEN: Soft, obese. EXTREMITIES: Lower extremities, moderate edema. LABORATORY AND DIAGNOSTIC DATA: All reviewed and appeared to be stable with platelets 81,000. The chemistry revealed creatinine of 1.5, which is essentially at his baseline and otherwise no new abnormalities. His telemetry shows atrial flutter/fib. IMPRESSION AND RECOMMENDATION: The patient is going to be continued on guideline-directed medical therapy for systolic dysfunction and also he is going to be continued on anticoagulation permanently because of paroxysmal AFib. Bailee Owens M.D. DR: MARISA JOB#: [id number] CC:
[2019-10-16] VITALS (9 sets, daily range): BP systolic 88–124; BP diastolic 60–93
[2019-10-16] MEDS: Morphine Sulfate 2mg/ml Inj(IV/IM USE ONLY) IVP PRN ×5 (01:16→18:57)
[2019-10-16] MEDS: Albuterol/Ipratropium 3ml neb HHN PRN ×2 (02:13→23:34)
[2019-10-16 06:49] LABS: HEMATOCRIT 31.2 % (42.0-52.0); HEMOGLOBIN 10.2 G/DL (14.2-18.0); MEAN CORPUSCULAR VOLUME 96 FL (80-99); PLATELET COUNT 79 K/UL (150-450); RED BLOOD COUNT 3.26 M/UL (4.70-6.10); RED CELL DISTRIBUTION WIDTH 16.1 % (11.6-14.8); WHITE BLOOD COUNT 4.5 K/UL (4.8-10.8)
[2019-10-16 07:21] LABS: ALANINE AMINOTRANSFERASE 19 U/L (12-78); ALBUMIN 3.4 G/DL (3.4-5.0); ALBUMIN/GLOBULIN RATIO 0.9 (1.0-2.7); ALKALINE PHOSPHATASE 81 U/L (46-116); ANION GAP 7 mmol/L (5-15); ASPARTATE AMINO TRANSFERASE 33 U/L (15-37); BILIRUBIN,TOTAL 0.5 MG/DL (0.2-1.0); BLOOD UREA NITROGEN 23 mg/dL (7-18); CALCIUM 8.3 MG/DL (8.5-10.1); CARBON DIOXIDE 33 MMOL/L (21-32); CHLORIDE 99 MMOL/L (98-107); CREATININE 1.4 MG/DL (0.55-1.30); POTASSIUM 3.9 MMOL/L (3.5-5.1); SODIUM 139 MMOL/L (136-145)
[2019-10-16] MEDS: Heparin 5000 units/ml inj SUBQ SCH ×2 (08:31→21:00)
[2019-10-16] MEDS: Lisinopril 2.5mg tab ORAL SCH (08:32)
[2019-10-16] MEDS: Docusate 100mg cap ORAL SCH ×3 (08:32→17:02)
[2019-10-16] MEDS: Allopurinol 100mg Tab ORAL SCH (08:32)
[2019-10-16] MEDS: Eliquis 5mg tablet ORAL SCH ×2 (08:32→17:02)
[2019-10-16] MEDS: Carvedilol 6.25mg Tab ORAL SCH ×2 (08:32→21:08)
--- NOTE | 2019-10-16 10:04 | Diagnostic Imaging Report ---
Indication: Shortness of breath Technique: One view of the chest Comparison: 10/12/2019 Findings: The heart is massively enlarged. There is some hazy opacity in the right mid and lower lung, suspect due to pleural fluid but could also represent some parenchymal consolidation; this appears slightly improved. Previously demonstrated interstitial congestive changes are stable or perhaps minimally improved. Impression: Stable to minimally improved interstitial congestion Persistent but slightly improved small right small pleural effusion Other stable findings as described
--- NOTE | 2019-10-16 12:45 | Pulmonology Progress Note ---
Subjective ROS Limited/Unobtainable: No Hematologic: Reports: no symptoms Musculoskeletal: Reports: no symptoms Allergies: Coded Allergies: SIMVASTATIN (Verified Allergy, Unknown, 07/03/19) Uncoded Allergies: STATINS (Allergy, Unknown, 08/13/19) Objective Last 24 Hour Vital Signs Date Time Temp Pulse Resp B/P (MAP) Pulse Ox O2 Delivery O2 Flow Rate FiO2 10/16/19 09:00 Nasal Cannula 2.0 Nasal Cannula 4.0 Nasal Cannula 4.0 10/16/19 08:32 111/70 10/16/19 08:32 108 111/70 10/16/19 08:00 96.1 104 22 111/81 (91) 100 10/16/19 08:00 105 10/16/19 05:59 98.2 10/16/19 05:35 104 22 124/77 (93) 100 10/16/19 05:20 104 22 124/77 (93) 100 10/16/19 04:06 116 10/16/19 04:00 98.1 109 22 113/83 (93) 97 10/16/19 03:47 108 10/16/19 02:24 111 18 100 Nasal Cannula 4.0 36 10/16/19 02:13 110 20 98 Nasal Cannula 4.0 36 10/16/19 01:20 24 114/60 (78) 10/16/19 00:00 97.7 109 21 88/63 (71) 100 10/16/19 00:00 108 10/15/19 21:32 109 114/89 (97) 10/15/19 21:30 109 114/89 10/15/19 21:00 Nasal Cannula 2.0 Nasal Cannula 4.0 Nasal Cannula 4.0 10/15/19 20:53 111 20 97 Nasal Cannula 4.0 36 10/15/19 20:53 97 Nasal Cannula 4.0 36 10/15/19 20:00 110 10/15/19 20:00 98.2 114 19 90/60 (70) 97 10/15/19 16:00 98.2 66 20 119/59 (79) 97 10/15/19 16:00 110 Intake and Output 10/15/19 10/16/19 19:00 07:00 Intake Total 620 ml Output Total 3100 ml Balance -2480 ml Intake Oral 620 ml Output Urine Total 3100 ml # Voids 6 General Appearance: WD/WN HEENT: normocephalic, atraumatic Respiratory: chest wall non-tender, rhonchi - left, rhonchi - right Cardiovascular: normal peripheral pulses, normal rate Abdomen: normal bowel sounds, soft, non tender Genitourinary: normal external genitalia Extremities: no cyanosis Skin: no rash Neurologic: family services worker II-XII grossly normal Lymphatic: no neck adenopathy Laboratory Tests 10/16/19 05:35: White Blood Count 4.5L, Red Blood Count 3.26L, Hemoglobin 10.2L, Hematocrit 31.2L, Mean Corpuscular Volume 96, Mean Corpuscular Hemoglobin 31.2H, Mean Corpuscular Hemoglobin Concent 32.6, Red Cell Distribution Width 16.1H, Platelet Count 79L, Mean Platelet Volume 8.1, Neutrophils (%) (Auto) , Lymphocytes (%) (Auto) , Monocytes (%) (Auto) , Eosinophils (%) (Auto) , Basophils (%) (Auto) , Differential Total Cells Counted 100, Neutrophils % ( Manual) 57, Lymphocytes % (Manual) 29, Monocytes % (Manual) 12H, Eosinophils % ( Manual) 2, Basophils % (Manual) 0, Band Neutrophils 0, Platelet Estimate DecreasedL, Platelet Morphology Normal, Hypochromasia 1+, Anisocytosis 1+, Sodium Level 139, Potassium Level 3.9, Chloride Level 99, Carbon Dioxide Level 33H, Anion Gap 7, Blood Urea Nitrogen 23H, Creatinine 1.4H, Estimat Glomerular Filtration Rate > 60, Glucose Level 83, Uric Acid 8.6H, Calcium Level 8.3L, Phosphorus Level 4.0, Magnesium Level 2.0, Total Bilirubin 0.5, Aspartate Amino Transf (AST/SGOT) 33, Alanine Aminotransferase (ALT/SGPT) 19, Alkaline Phosphatase 81, Total Protein 7.0, Albumin 3.4, Globulin 3.6, Albumin/Globulin Ratio 0.9L, Digoxin Level < 0.2L Current Medications Medications (Trade) Dose Ordered Sig/Marybeth Route PRN Reason Start Time Stop Time Status Last Admin Dose Admin Acetaminophen (Tylenol) 650 mg Q4H PRN ORAL T>100.5 10/11/19 21:00 11/10/19 20:59 Acetaminophen/ Hydrocodone Bitart ([place] 5/325) 1 tab Q6H PRN ORAL For Pain 10/11/19 23:45 10/18/19 23:44 10/14/19 08:57 Albuterol/ Ipratropium (Albuterol/ Ipratropium) 3 ml Q4H PRN HHN Shortness of Breath 10/11/19 21:00 10/16/19 20:59 10/16/19 02:13 Allopurinol (Zyloprim) 200 mg DAILY ORAL 10/15/19 09:45 11/14/19 09:44 10/16/19 08:32 Apixaban (Eliquis) 5 mg BID ORAL 10/12/19 18:00 01/10/20 17:59 10/16/19 08:32 Carvedilol (Coreg) 6.25 mg EVERY 12 HOURS ORAL 10/11/19 21:00 11/10/19 20:59 10/16/19 08:32 Dextrose (Dextrose 50%) 25 ml Q30M PRN IV Hypoglycemia 10/11/19 21:00 01/09/20 20:59 Dextrose (Dextrose 50%) 50 ml Q30MIN PRN IV Hypoglycemia 10/11/19 21:00 01/09/20 20:59 Docusate Sodium (Colace) 100 mg THREE TIMES A DAY ORAL 10/14/19 18:00 11/13/19 17:59 10/16/19 12:09 Furosemide (Lasix) 40 mg BID IV 10/12/19 18:00 11/11/19 17:59 10/16/19 08:33 Heparin Sodium (Porcine) (Heparin 5000 units/ml) 5,000 units EVERY 12 HOURS SUBQ 10/12/19 09:00 11/26/19 08:59 Iron Sucrose 100 mg/Sodium Chloride 60 ml @ 240 mls/hr BEDTIME IV 10/16/19 21:00 10/20/19 21:14 Lisinopril (ZestriL) 5 mg DAILY ORAL 10/15/19 09:00 11/11/19 08:59 10/16/19 08:32 Morphine Sulfate (Morphine Sulfate) 2 mg Q4H PRN IVP For Pain 10/14/19 09:00 10/19/19 08:59 10/16/19 05:29 Ondansetron HCl (Zofran) 4 mg Q6H PRN IVP Nausea & Vomiting 10/11/19 21:00 11/10/19 20:59 Pantoprazole (Protonix) 40 mg EVERY 12 HOURS ORAL 10/14/19 13:15 11/13/19 13:14 10/16/19 08:31 Polyethylene Glycol (Miralax) 17 gm DAILYPRN PRN ORAL Constipation 10/11/19 21:00 11/10/19 20:59 Temazepam (Restoril) 15 mg HSPRN PRN ORAL Insomnia 10/11/19 21:00 10/18/19 20:59 Assessment/Plan Problems: (1) Acute on chronic congestive heart failure (2) COPD (chronic obstructive pulmonary disease) (3) Atrial fibrillation, chronic (4) Normocytic anemia (5) Acute on chronic renal insufficiency (6) Thrombocytopenia (7) Pulmonary HTN (8) HTN (hypertension) Assessment/Plan still short of breath diuresed 7 liters so far on Lasix BID respiratory treatment Echo showing EF 10-15% titrate fio2 to sat of 92% venous doppler to rule out DVT on Epixiban Palak Mccray MD October 16, 2019 12:45
--- NOTE | 2019-10-16 13:26 | Nephrology Progress Note ---
Assessment/Plan Problem List: (1) Acute on chronic renal insufficiency Assessment: Creatinine lowering (2) Anemia Assessment: Appears to be iron deficiency (3) Pulmonary HTN Assessment Renal failure most likely secondary to cardiomyopathy and cardiorenal syndrome Acute CHF exacerbation on chronic with mild pulmonary edema and fluid overload Severe dilated cardiomyopathy with EF 10 to 15% COPD Moderate pulmonary hypertension Hypertension Anemia , iron panel suggestive of iron deficiency anemia Schizophrenia with hx of diagnosed Munchausen syndrome and malingering Liver cirrhosis, splenomegaly, thrombocytopenia Plan Intravenous iron Optimize cardiac status Digoxin 0.25 mg once p.o. Watch and monitor renal parameters Avoid nephrotoxic's IV Venofer once, check CEA level, check stool for OB Afterload reduction and parameters for blood pressure medications Per orders Subjective ROS Limited/Unobtainable: No Constitutional: Reports: malaise, weakness Objective Objective Last 24 Hour Vital Signs Date Time Temp Pulse Resp B/P (MAP) Pulse Ox O2 Delivery O2 Flow Rate FiO2 10/16/19 11:44 108 10/16/19 09:00 Nasal Cannula 2.0 Nasal Cannula 4.0 Nasal Cannula 4.0 10/16/19 08:32 111/70 10/16/19 08:32 108 111/70 10/16/19 08:00 96.1 104 22 111/81 (91) 100 10/16/19 08:00 105 10/16/19 05:59 98.2 10/16/19 05:35 104 22 124/77 (93) 100 10/16/19 05:20 104 22 124/77 (93) 100 10/16/19 04:06 116 10/16/19 04:00 98.1 109 22 113/83 (93) 97 10/16/19 03:47 108 10/16/19 02:24 111 18 100 Nasal Cannula 4.0 36 10/16/19 02:13 110 20 98 Nasal Cannula 4.0 36 10/16/19 01:20 24 114/60 (78) 10/16/19 00:00 97.7 109 21 88/63 (71) 100 10/16/19 00:00 108 10/15/19 21:32 109 114/89 (97) 10/15/19 21:30 109 114/89 10/15/19 21:00 Nasal Cannula 2.0 Nasal Cannula 4.0 Nasal Cannula 4.0 10/15/19 20:53 111 20 97 Nasal Cannula 4.0 36 10/15/19 20:53 97 Nasal Cannula 4.0 36 10/15/19 20:00 110 10/15/19 20:00 98.2 114 19 90/60 (70) 97 10/15/19 16:00 98.2 66 20 119/59 (79) 97 10/15/19 16:00 110 Intake and Output 10/15/19 10/16/19 19:00 07:00 Intake Total 620 ml Output Total 3100 ml Balance -2480 ml Intake Oral 620 ml Output Urine Total 3100 ml # Voids 6 Laboratory Tests 10/16/19 05:35: White Blood Count 4.5L, Red Blood Count 3.26L, Hemoglobin 10.2L, Hematocrit 31.2L, Mean Corpuscular Volume 96, Mean Corpuscular Hemoglobin 31.2H, Mean Corpuscular Hemoglobin Concent 32.6, Red Cell Distribution Width 16.1H, Platelet Count 79L, Mean Platelet Volume 8.1, Neutrophils (%) (Auto) , Lymphocytes (%) (Auto) , Monocytes (%) (Auto) , Eosinophils (%) (Auto) , Basophils (%) (Auto) , Differential Total Cells Counted 100, Neutrophils % ( Manual) 57, Lymphocytes % (Manual) 29, Monocytes % (Manual) 12H, Eosinophils % ( Manual) 2, Basophils % (Manual) 0, Band Neutrophils 0, Platelet Estimate DecreasedL, Platelet Morphology Normal, Hypochromasia 1+, Anisocytosis 1+, Sodium Level 139, Potassium Level 3.9, Chloride Level 99, Carbon Dioxide Level 33H, Anion Gap 7, Blood Urea Nitrogen 23H, Creatinine 1.4H, Estimat Glomerular Filtration Rate > 60, Glucose Level 83, Uric Acid 8.6H, Calcium Level 8.3L, Phosphorus Level 4.0, Magnesium Level 2.0, Total Bilirubin 0.5, Aspartate Amino Transf (AST/SGOT) 33, Alanine Aminotransferase (ALT/SGPT) 19, Alkaline Phosphatase 81, Total Protein 7.0, Albumin 3.4, Globulin 3.6, Albumin/Globulin Ratio 0.9L, Digoxin Level < 0.2L Height (Feet): 5 Height (Inches): 6.00 Weight (Pounds): 210 General Appearance: no apparent distress Cardiovascular: tachycardia Respiratory/Chest: decreased breath sounds Abdomen: distended Scout Cody MD October 16, 2019 13:26
--- NOTE | 2019-10-16 14:45 | Cardiology Progress Note ---
Assessment/Plan Assessment/Plan 1. Chronic systolic heart failure. 2. No evidence of coronary artery disease by cardiac catheterization at [facility] in 2018. 3. Atrial flutter with 2:1 block. 4. Chronic recurrent chest pains with multiple hospitalizations at [facility] as well as [facility] as well as [facility], at least the ones known of. 5. Nonsustained ventricular tachycardia. 6. History of hypertension. 7. Prediabetes. 8. History of renal insufficiency. 9. Anemia. 10. Chronic schizophrenia. 11. Reported history of Munchausen syndrome. 12. Reported history of malingering. 13. Homelessness. he has been responding to the diuretics he continues to have symptoms still variously bp seems fine is on on gdmt tele personally reviewed atrial flutter / tachy with 2:1 block he is able to walk to the br bp still looks ok plt on the lower side keep on present diuretic dose as long as bp and cr allow weigh recorded is not accurate has been weight in bed but no all necessary precaution taken to allo accurate reading per learning services coordinator will look for teissign standing scale Subjective Cardiovascular: Reports: chest pain, palpitations; Denies: lightheadedness Respiratory: Reports: cough, shortness of breath, sputum, wheezing Gastrointestinal/Abdominal: Reports: nausea; Denies: abdominal pain, vomiting Genitourinary: Denies: burning Subjective [facility] record reviewed [facility] Systolic CHF, acute on chronic (HCC) Chest pain Abnormal EKG Cardiomyopathy (HCC) NSVT (nonsustained ventricular tachycardia) ([facility]) Chronic venous stasis dermatitis of both lower extremities HTN (hypertension) Acute on chronic congestive heart failure (HCC) Elevated brain natriuretic peptide (BNP) level Acute exacerbation of CHF (congestive heart failure) (HCC) Endocrine/Metabolic Graves disease Thyrotoxicosis Prediabetes Gastrointestinal and Abdominal Acute pancreatitis Genitourinary and Reproductive Renal insufficiency Acute kidney injury (HCC) Hyperkalemia Hematology and Neoplasia Anemia Infectious Diseases Cellulitis of lower extremity Mental Health Chronic schizophrenia (HCC) Munchausen's syndrome Paranoid schizophrenia (HCC) Adjustment disorder with depressed mood Pulmonary and Pneumonias Acute on chronic respiratory failure with hypercapnia Symptoms and Signs Edema extremities Exertional dyspnea Leg swelling Tobacco Smoker Other Homelessness Malingering Objective Last 24 Hour Vital Signs Date Time Temp Pulse Resp B/P (MAP) Pulse Ox O2 Delivery O2 Flow Rate FiO2 10/16/19 14:02 108 10/16/19 11:44 108 10/16/19 09:00 Nasal Cannula 2.0 Nasal Cannula 4.0 Nasal Cannula 4.0 10/16/19 08:32 111/70 10/16/19 08:32 108 111/70 10/16/19 08:00 96.1 104 22 111/81 (91) 100 10/16/19 08:00 105 10/16/19 05:59 98.2 10/16/19 05:35 104 22 124/77 (93) 100 10/16/19 05:20 104 22 124/77 (93) 100 10/16/19 04:06 116 10/16/19 04:00 98.1 109 22 113/83 (93) 97 10/16/19 03:47 108 10/16/19 02:24 111 18 100 Nasal Cannula 4.0 36 10/16/19 02:13 110 20 98 Nasal Cannula 4.0 36 10/16/19 01:20 24 114/60 (78) 10/16/19 00:00 97.7 109 21 88/63 (71) 100 10/16/19 00:00 108 10/15/19 21:32 109 114/89 (97) 10/15/19 21:30 109 114/89 10/15/19 21:00 Nasal Cannula 2.0 Nasal Cannula 4.0 Nasal Cannula 4.0 10/15/19 20:53 111 20 97 Nasal Cannula 4.0 36 10/15/19 20:53 97 Nasal Cannula 4.0 36 10/15/19 20:00 110 10/15/19 20:00 98.2 114 19 90/60 (70) 97 10/15/19 16:00 98.2 66 20 119/59 (79) 97 10/15/19 16:00 110 General Appearance: no apparent distress Intake and Output 10/15/19 10/16/19 19:00 07:00 Intake Total 620 ml Output Total 3100 ml Balance -2480 ml Intake Oral 620 ml Output Urine Total 3100 ml # Voids 6 Laboratory Tests Test 10/16/19 05:35 White Blood Count 4.5 K/UL (4.8-10.8) L Red Blood Count 3.26 M/UL (4.70-6.10) L Hemoglobin 10.2 G/DL (14.2-18.0) L Hematocrit 31.2 % (42.0-52.0) L Mean Corpuscular Volume 96 FL (80-99) Mean Corpuscular Hemoglobin 31.2 PG (27.0-31.0) H Mean Corpuscular Hemoglobin Concent 32.6 G/DL (32.0-36.0) Red Cell Distribution Width 16.1 % (11.6-14.8) H Platelet Count 79 K/UL (150-450) L Mean Platelet Volume 8.1 FL (6.5-10.1) Neutrophils (%) (Auto) % (45.0-75.0) Lymphocytes (%) (Auto) % (20.0-45.0) Monocytes (%) (Auto) % (1.0-10.0) Eosinophils (%) (Auto) % (0.0-3.0) Basophils (%) (Auto) % (0.0-2.0) Differential Total Cells Counted 100 Neutrophils % (Manual) 57 % (45-75) Lymphocytes % (Manual) 29 % (20-45) Monocytes % (Manual) 12 % (1-10) H Eosinophils % (Manual) 2 % (0-3) Basophils % (Manual) 0 % (0-2) Band Neutrophils 0 % (0-8) Platelet Estimate Decreased L Platelet Morphology Normal Hypochromasia 1+ Anisocytosis 1+ Sodium Level 139 MMOL/L (136-145) Potassium Level 3.9 MMOL/L (3.5-5.1) Chloride Level 99 MMOL/L (98-107) Carbon Dioxide Level 33 MMOL/L (21-32) H Anion Gap 7 mmol/L (5-15) Blood Urea Nitrogen 23 mg/dL (7-18) H Creatinine 1.4 MG/DL (0.55-1.30) H Estimat Glomerular Filtration Rate > 60 mL/min (>60) Glucose Level 83 MG/DL (74-106) Uric Acid 8.6 MG/DL (2.6-7.2) H Calcium Level 8.3 MG/DL (8.5-10.1) L Phosphorus Level 4.0 MG/DL (2.5-4.9) Magnesium Level 2.0 MG/DL (1.8-2.4) Total Bilirubin 0.5 MG/DL (0.2-1.0) Aspartate Amino Transf (AST/SGOT) 33 U/L (15-37) Alanine Aminotransferase (ALT/SGPT) 19 U/L (12-78) Alkaline Phosphatase 81 U/L (46-116) Total Protein 7.0 G/DL (6.4-8.2) Albumin 3.4 G/DL (3.4-5.0) Globulin 3.6 g/dL Albumin/Globulin Ratio 0.9 (1.0-2.7) L Digoxin Level < 0.2 NG/ML (0.5-2.0) L Tone Chapman MD October 16, 2019 14:45
--- NOTE | 2019-10-16 16:22 | Diagnostic Imaging Report ---
Indication: Bilateral leg edema. Bilateral leg pain Technique: Grayscale and duplex images of the bilateral lower extremity veins Comparison: None Findings: Bilaterally, grayscale and duplex images demonstrate no evidence of intraluminal thrombus. Normal phasic Doppler waveforms, demonstrating normal augmentation response and no evidence of valvular insufficiency. Greater saphenous vein(s) and tibial veins are patent. Normal compressibility. Impression: Negative for evidence of lower extremity deep venous thrombosis bilaterally
--- NOTE | 2019-10-16 17:17 | Internal Med Progress Note ---
Subjective Date of Service: October 16, 2019 Physician Name BebaYousif Attending Physician Neftali Tinsley MD Current Medications Medications (Trade) Dose Ordered Sig/Marybeth Route PRN Reason Start Time Stop Time Status Last Admin Dose Admin Acetaminophen (Tylenol) 650 mg Q4H PRN ORAL T>100.5 10/11/19 21:00 11/10/19 20:59 Acetaminophen/ Hydrocodone Bitart ([place] 5/325) 1 tab Q6H PRN ORAL For Pain 10/11/19 23:45 10/18/19 23:44 10/14/19 08:57 Albuterol/ Ipratropium (Albuterol/ Ipratropium) 3 ml Q4H PRN HHN Shortness of Breath 10/11/19 21:00 10/16/19 20:59 10/16/19 02:13 Allopurinol (Zyloprim) 200 mg DAILY ORAL 10/15/19 09:45 11/14/19 09:44 10/16/19 08:32 Apixaban (Eliquis) 5 mg BID ORAL 10/12/19 18:00 01/10/20 17:59 10/16/19 17:02 Carvedilol (Coreg) 6.25 mg EVERY 12 HOURS ORAL 10/11/19 21:00 11/10/19 20:59 10/16/19 08:32 Dextrose (Dextrose 50%) 25 ml Q30M PRN IV Hypoglycemia 10/11/19 21:00 01/09/20 20:59 Dextrose (Dextrose 50%) 50 ml Q30MIN PRN IV Hypoglycemia 10/11/19 21:00 01/09/20 20:59 Docusate Sodium (Colace) 100 mg THREE TIMES A DAY ORAL 10/14/19 18:00 11/13/19 17:59 10/16/19 17:02 Furosemide (Lasix) 40 mg BID IV 10/12/19 18:00 11/11/19 17:59 10/16/19 17:04 Heparin Sodium (Porcine) (Heparin 5000 units/ml) 5,000 units EVERY 12 HOURS SUBQ 10/12/19 09:00 11/26/19 08:59 Iron Sucrose 100 mg/Sodium Chloride 60 ml @ 240 mls/hr BEDTIME IV 10/16/19 21:00 10/20/19 21:14 Lisinopril (ZestriL) 5 mg DAILY ORAL 10/15/19 09:00 11/11/19 08:59 10/16/19 08:32 Morphine Sulfate (Morphine Sulfate) 2 mg Q4H PRN IVP For Pain 10/14/19 09:00 10/19/19 08:59 10/16/19 14:07 Ondansetron HCl (Zofran) 4 mg Q6H PRN IVP Nausea & Vomiting 10/11/19 21:00 11/10/19 20:59 Pantoprazole (Protonix) 40 mg EVERY 12 HOURS ORAL 10/14/19 13:15 11/13/19 13:14 10/16/19 08:31 Polyethylene Glycol (Miralax) 17 gm DAILYPRN PRN ORAL Constipation 10/11/19 21:00 11/10/19 20:59 Temazepam (Restoril) 15 mg HSPRN PRN ORAL Insomnia 10/11/19 21:00 10/18/19 20:59 Allergies: Coded Allergies: SIMVASTATIN (Verified Allergy, Unknown, 07/03/19) Uncoded Allergies: STATINS (Allergy, Unknown, 08/13/19) ROS Limited/Unobtainable: No Constitutional: Reports: no symptoms HEENT: Reports: no symptoms Cardiovascular: Reports: no symptoms Respiratory: Reports: no symptoms Gastrointestinal/Abdominal: Reports: no symptoms Genitourinary: Reports: no symptoms Subjective 54 YO M admitted with shortness of breath. Now Acute on chronic congestive heart failure. Cover for Int Neal-Dr Tinsley. Shortness of breath improving. C/ O edema of midsection Objective Last Vital Signs Date Time Temp Pulse Resp B/P (MAP) Pulse Ox O2 Delivery O2 Flow Rate FiO2 10/16/19 14:37 96.1 10/16/19 14:02 108 10/16/19 09:00 Nasal Cannula 2.0 Nasal Cannula 4.0 Nasal Cannula 4.0 10/16/19 08:32 111/70 10/16/19 08:00 22 100 10/16/19 02:24 36 Laboratory Tests Test 10/16/19 05:35 White Blood Count 4.5 K/UL (4.8-10.8) L Red Blood Count 3.26 M/UL (4.70-6.10) L Hemoglobin 10.2 G/DL (14.2-18.0) L Hematocrit 31.2 % (42.0-52.0) L Mean Corpuscular Volume 96 FL (80-99) Mean Corpuscular Hemoglobin 31.2 PG (27.0-31.0) H Mean Corpuscular Hemoglobin Concent 32.6 G/DL (32.0-36.0) Red Cell Distribution Width 16.1 % (11.6-14.8) H Platelet Count 79 K/UL (150-450) L Mean Platelet Volume 8.1 FL (6.5-10.1) Neutrophils (%) (Auto) % (45.0-75.0) Lymphocytes (%) (Auto) % (20.0-45.0) Monocytes (%) (Auto) % (1.0-10.0) Eosinophils (%) (Auto) % (0.0-3.0) Basophils (%) (Auto) % (0.0-2.0) Differential Total Cells Counted 100 Neutrophils % (Manual) 57 % (45-75) Lymphocytes % (Manual) 29 % (20-45) Monocytes % (Manual) 12 % (1-10) H Eosinophils % (Manual) 2 % (0-3) Basophils % (Manual) 0 % (0-2) Band Neutrophils 0 % (0-8) Platelet Estimate Decreased L Platelet Morphology Normal Hypochromasia 1+ Anisocytosis 1+ Sodium Level 139 MMOL/L (136-145) Potassium Level 3.9 MMOL/L (3.5-5.1) Chloride Level 99 MMOL/L (98-107) Carbon Dioxide Level 33 MMOL/L (21-32) H Anion Gap 7 mmol/L (5-15) Blood Urea Nitrogen 23 mg/dL (7-18) H Creatinine 1.4 MG/DL (0.55-1.30) H Estimat Glomerular Filtration Rate > 60 mL/min (>60) Glucose Level 83 MG/DL (74-106) Uric Acid 8.6 MG/DL (2.6-7.2) H Calcium Level 8.3 MG/DL (8.5-10.1) L Phosphorus Level 4.0 MG/DL (2.5-4.9) Magnesium Level 2.0 MG/DL (1.8-2.4) Total Bilirubin 0.5 MG/DL (0.2-1.0) Aspartate Amino Transf (AST/SGOT) 33 U/L (15-37) Alanine Aminotransferase (ALT/SGPT) 19 U/L (12-78) Alkaline Phosphatase 81 U/L (46-116) Total Protein 7.0 G/DL (6.4-8.2) Albumin 3.4 G/DL (3.4-5.0) Globulin 3.6 g/dL Albumin/Globulin Ratio 0.9 (1.0-2.7) L Digoxin Level < 0.2 NG/ML (0.5-2.0) L Intake and Output 10/15/19 10/16/19 19:00 07:00 Intake Total 620 ml Output Total 3100 ml Balance -2480 ml Intake Oral 620 ml Output Urine Total 3100 ml # Voids 6 Objective PHYSICAL EXAMINATION: GENERAL: Patient is awake and responsive. No acute distress. HEAD AND NECK: Pupils are equal and reactive to light. Extraocular movements are intact. Neck was supple. Positive JVD. LUNGS: Good air entry. Decreased air in bases. No wheezing or rhonchi. HEART: S1, S2. Tachycardic. Distant heart sounds. No murmur or gallops. ABDOMEN: Soft, nondistended, nontender. Positive bowel sounds. Morbidly obese. GENITOURINARY: Noted scrotal edema. No tenderness. No erythema. EXTREMITIES: No cyanosis or clubbing. +2 edema bilateral lower extremity with hyperpigmentation around both lower extremities. NEUROLOGIC: Cranial nerves II through XII grossly intact. Motor is 5/5 in all extremities. Gait was not assessed due to patient's status. RECTAL: Exam refused and deferred. PSYCHIATRIC: Mood and affect is calm and relaxed at this time, but he has history of schizophrenia. Assessment/Plan Assessment/Plan ASSESSMENT: 1. Acute CHF exacerbation on chronic with mild pulmonary edema and fluid overload. LVEF=10-15% 2. Hypertension. 3. Morbid obesity. 4. Atrial flutter. 5. History of paranoid schizophrenia and malingering. 6. History of Graves disease. 7. Prediabetic. 8. History of lower extremity chronic edema. 9. Anemia. 10. Chronic kidney disease. PLAN: 1. Admit patient to monitored unit. 2. Dr. Tone Chapman = Cardiology consult 3. Dr. Mccray=Pulmonary Critical Care. 4. Lasix IV 40 mg twice a day. 5. Code status is Full Code. 6. DVT prophylaxis=Eliquis. Yousif Yoder MD October 16, 2019 17:17
[2019-10-16] MEDS ORDERED: HYDROCHLOROTHIA50 MG ORAL (18:23)
[2019-10-16] MEDS ORDERED: PROTONIX20 MG ORAL (18:23)
[2019-10-16] MEDS ORDERED: ATORVASTATIN CA40 MG ORAL (18:23)
[2019-10-16] MEDS: Iron Sucrose 100 MG in NS 55 ML IV SCH ×2 (21:00→21:08)
[2019-10-17 00:10] VITALS: BP 123/75
[2019-10-17 04:00] VITALS: BP 120/86
[2019-10-17 07:10] LABS: HEMATOCRIT 31.2 % (42.0-52.0); HEMOGLOBIN 9.8 G/DL (14.2-18.0); MEAN CORPUSCULAR VOLUME 96 FL (80-99); PLATELET COUNT 76 K/UL (150-450); RED BLOOD COUNT 3.24 M/UL (4.70-6.10); RED CELL DISTRIBUTION WIDTH 16.3 % (11.6-14.8); WHITE BLOOD COUNT 5.1 K/UL (4.8-10.8)
[2019-10-17 07:21] LABS: ALANINE AMINOTRANSFERASE 18 U/L (12-78); ALBUMIN 3.5 G/DL (3.4-5.0); ALKALINE PHOSPHATASE 89 U/L (46-116); ANION GAP 6 mmol/L (5-15); ASPARTATE AMINO TRANSFERASE 30 U/L (15-37); BILIRUBIN,TOTAL 0.5 MG/DL (0.2-1.0); BLOOD UREA NITROGEN 29 mg/dL (7-18); CALCIUM 8.2 MG/DL (8.5-10.1); CARBON DIOXIDE 34 MMOL/L (21-32); CHLORIDE 98 MMOL/L (98-107); CREATININE 1.5 MG/DL (0.55-1.30); POTASSIUM 4.3 MMOL/L (3.5-5.1); SODIUM 138 MMOL/L (136-145)
[2019-10-17 07:22] LABS: PHOSPHORUS 4.2 MG/DL (2.5-4.9)
[2019-10-17 08:00] VITALS: BP 121/92
[2019-10-17] MEDS: Heparin 5000 units/ml inj SUBQ SCH ×2 (08:41→20:48)
[2019-10-17] MEDS: Carvedilol 6.25mg Tab ORAL SCH ×2 (08:45→21:29)
[2019-10-17] MEDS: Eliquis 5mg tablet ORAL SCH ×2 (08:45→17:31)
[2019-10-17] MEDS: Allopurinol 100mg Tab ORAL SCH (08:46)
[2019-10-17] MEDS: Docusate 100mg cap ORAL SCH ×3 (08:46→17:31)
[2019-10-17] MEDS: Lisinopril 2.5mg tab ORAL SCH (08:46)
[2019-10-17] MEDS: Furosemide 40mg tab ORAL SCH ×2 (09:20→17:32)
--- NOTE | 2019-10-17 10:23 | Diagnostic Imaging Report ---
Indication: Dyspnea Technique: One view of the chest Comparison: 10/16/2019 Findings: The heart is enlarged. There is minimal hazy parenchymal disease versus superimposed pleural fluid on the right, appearance largely unchanged. There is some atelectasis at the right lung base. Impression: Unchanged, over one day, findings as above.
[2019-10-17 12:00] VITALS: BP 121/75
--- NOTE | 2019-10-17 12:31 | Internal Med Progress Note ---
Subjective Date of Service: October 17, 2019 Physician Name BebaYousif Attending Physician Neftali Tinsley MD Current Medications Medications (Trade) Dose Ordered Sig/Marybeth Route PRN Reason Start Time Stop Time Status Last Admin Dose Admin Acetaminophen (Tylenol) 650 mg Q4H PRN ORAL T>100.5 10/11/19 21:00 11/10/19 20:59 Acetaminophen/ Hydrocodone Bitart ([place] 5/325) 1 tab Q6H PRN ORAL For Pain 10/11/19 23:45 10/18/19 23:44 10/14/19 08:57 Albuterol/ Ipratropium (Albuterol/ Ipratropium) 3 ml Q4H PRN HHN Shortness of Breath 10/16/19 23:15 10/21/19 23:14 10/16/19 23:34 Allopurinol (Zyloprim) 200 mg DAILY ORAL 10/15/19 09:45 11/14/19 09:44 10/17/19 08:46 Apixaban (Eliquis) 5 mg BID ORAL 10/12/19 18:00 01/10/20 17:59 10/17/19 08:45 Carvedilol (Coreg) 6.25 mg EVERY 12 HOURS ORAL 10/11/19 21:00 11/10/19 20:59 10/17/19 08:45 Dextrose (Dextrose 50%) 25 ml Q30M PRN IV Hypoglycemia 10/11/19 21:00 01/09/20 20:59 Dextrose (Dextrose 50%) 50 ml Q30MIN PRN IV Hypoglycemia 10/11/19 21:00 01/09/20 20:59 Docusate Sodium (Colace) 100 mg THREE TIMES A DAY ORAL 10/14/19 18:00 11/13/19 17:59 10/17/19 08:46 Furosemide (Lasix) 40 mg BID ORAL 10/17/19 09:00 11/16/19 08:59 10/17/19 09:20 Heparin Sodium (Porcine) (Heparin 5000 units/ml) 5,000 units EVERY 12 HOURS SUBQ 10/12/19 09:00 11/26/19 08:59 Iron Sucrose 100 mg/Sodium Chloride 60 ml @ 240 mls/hr BEDTIME IV 10/16/19 21:00 10/20/19 21:14 Lisinopril (ZestriL) 5 mg DAILY ORAL 10/15/19 09:00 11/11/19 08:59 10/17/19 08:46 Morphine Sulfate (Morphine Sulfate) 2 mg Q4H PRN IVP For Pain 10/14/19 09:00 10/19/19 08:59 10/16/19 18:57 Ondansetron HCl (Zofran) 4 mg Q6H PRN IVP Nausea & Vomiting 10/11/19 21:00 11/10/19 20:59 Pantoprazole (Protonix) 40 mg EVERY 12 HOURS ORAL 10/14/19 13:15 11/13/19 13:14 10/17/19 08:45 Polyethylene Glycol (Miralax) 17 gm DAILYPRN PRN ORAL Constipation 10/11/19 21:00 11/10/19 20:59 Temazepam (Restoril) 15 mg HSPRN PRN ORAL Insomnia 10/11/19 21:00 10/18/19 20:59 Allergies: Coded Allergies: SIMVASTATIN (Verified Allergy, Unknown, 07/03/19) Uncoded Allergies: STATINS (Allergy, Unknown, 08/13/19) ROS Limited/Unobtainable: No Constitutional: Reports: no symptoms HEENT: Reports: no symptoms Cardiovascular: Reports: no symptoms Respiratory: Reports: no symptoms Gastrointestinal/Abdominal: Reports: no symptoms Genitourinary: Reports: no symptoms Neurologic/Psychiatric: Reports: no symptoms Subjective 54 YO M admitted with shortness of breath. Now Acute on chronic congestive heart failure. Cover for Int Neal-Dr Tinsley. Shortness of breath improving Objective Last Vital Signs Date Time Temp Pulse Resp B/P (MAP) Pulse Ox O2 Delivery O2 Flow Rate FiO2 10/17/19 12:00 98.2 56 20 121/75 (90) 100 10/17/19 09:00 Nasal Cannula 2.0 Nasal Cannula 4.0 Nasal Cannula 4.0 10/16/19 23:34 36 Laboratory Tests Test 10/17/19 06:22 White Blood Count 5.1 K/UL (4.8-10.8) Red Blood Count 3.24 M/UL (4.70-6.10) L Hemoglobin 9.8 G/DL (14.2-18.0) L Hematocrit 31.2 % (42.0-52.0) L Mean Corpuscular Volume 96 FL (80-99) Mean Corpuscular Hemoglobin 30.4 PG (27.0-31.0) Mean Corpuscular Hemoglobin Concent 31.5 G/DL (32.0-36.0) L Red Cell Distribution Width 16.3 % (11.6-14.8) H Platelet Count 76 K/UL (150-450) L Mean Platelet Volume 7.6 FL (6.5-10.1) Neutrophils (%) (Auto) % (45.0-75.0) Lymphocytes (%) (Auto) % (20.0-45.0) Monocytes (%) (Auto) % (1.0-10.0) Eosinophils (%) (Auto) % (0.0-3.0) Basophils (%) (Auto) % (0.0-2.0) Differential Total Cells Counted 100 Neutrophils % (Manual) 66 % (45-75) Lymphocytes % (Manual) 23 % (20-45) Monocytes % (Manual) 9 % (1-10) Eosinophils % (Manual) 2 % (0-3) Basophils % (Manual) 0 % (0-2) Band Neutrophils 0 % (0-8) Platelet Estimate Decreased L Platelet Morphology Normal Hypochromasia 1+ Anisocytosis 1+ Sodium Level 138 MMOL/L (136-145) Potassium Level 4.3 MMOL/L (3.5-5.1) Chloride Level 98 MMOL/L (98-107) Carbon Dioxide Level 34 MMOL/L (21-32) H Anion Gap 6 mmol/L (5-15) Blood Urea Nitrogen 29 mg/dL (7-18) H Creatinine 1.5 MG/DL (0.55-1.30) H Estimat Glomerular Filtration Rate 59.4 mL/min (>60) Glucose Level 99 MG/DL (74-106) Uric Acid 8.6 MG/DL (2.6-7.2) H Calcium Level 8.2 MG/DL (8.5-10.1) L Phosphorus Level 4.2 MG/DL (2.5-4.9) Magnesium Level 1.9 MG/DL (1.8-2.4) Total Bilirubin 0.5 MG/DL (0.2-1.0) Aspartate Amino Transf (AST/SGOT) 30 U/L (15-37) Alanine Aminotransferase (ALT/SGPT) 18 U/L (12-78) Alkaline Phosphatase 89 U/L (46-116) C-Reactive Protein, Quantitative 0.8 mg/dL (0.00-0.90) Pro-B-Type Natriuretic Peptide 2066 pg/mL (0-125) H Total Protein 7.1 G/DL (6.4-8.2) Albumin 3.5 G/DL (3.4-5.0) Globulin 3.6 g/dL Albumin/Globulin Ratio 1.0 (1.0-2.7) Digoxin Level < 0.2 NG/ML (0.5-2.0) L Intake and Output 10/16/19 10/17/19 19:00 07:00 Intake Total 240 ml Output Total 500 ml 700 ml Balance -260 ml -700 ml Intake Oral 240 ml Output Urine Total 500 ml 700 ml Objective PHYSICAL EXAMINATION: GENERAL: Patient is awake and responsive. No acute distress. HEAD AND NECK: Pupils are equal and reactive to light. Extraocular movements are intact. Neck was supple. Positive JVD. LUNGS: Good air entry. Decreased air in bases. No wheezing or rhonchi. HEART: S1, S2. Tachycardic. Distant heart sounds. No murmur or gallops. ABDOMEN: Soft, nondistended, nontender. Positive bowel sounds. Morbidly obese. GENITOURINARY: Noted scrotal edema. No tenderness. No erythema. EXTREMITIES: No cyanosis or clubbing. +2 edema bilateral lower extremity with hyperpigmentation around both lower extremities. NEUROLOGIC: Cranial nerves II through XII grossly intact. Motor is 5/5 in all extremities. Gait was not assessed due to patient's status. RECTAL: Exam refused and deferred. PSYCHIATRIC: Mood and affect is calm and relaxed at this time, but he has history of schizophrenia. Assessment/Plan Assessment/Plan ASSESSMENT: 1. Acute CHF exacerbation on chronic with mild pulmonary edema and fluid overload. LVEF=10-15% 2. Hypertension. 3. Morbid obesity. 4. Atrial flutter. 5. History of paranoid schizophrenia and malingering. 6. History of Graves disease. 7. Prediabetic. 8. History of lower extremity chronic edema. 9. Anemia. 10. Chronic kidney disease. PLAN: 1. Admit patient to monitored unit. 2. Dr. Tone Chapman = Cardiology consult 3. Dr. Mccray=Pulmonary Critical Care. 4. Lasix IV 40 mg twice a day. 5. Code status is Full Code. 6. DVT prophylaxis=Eliquis. Yousif Yoder MD October 17, 2019 12:31
--- NOTE | 2019-10-17 13:13 | Nephrology Progress Note ---
Assessment/Plan Problem List: (1) Acute on chronic renal insufficiency Assessment: Creatinine lowering (2) Anemia Assessment: Appears to be iron deficiency (3) Pulmonary HTN Assessment Renal failure most likely secondary to cardiomyopathy and cardiorenal syndrome Acute CHF exacerbation on chronic with mild pulmonary edema and fluid overload Severe dilated cardiomyopathy with EF 10 to 15% COPD Moderate pulmonary hypertension Hypertension Anemia , iron panel suggestive of iron deficiency anemia Schizophrenia with hx of diagnosed Munchausen syndrome and malingering Liver cirrhosis, splenomegaly, thrombocytopenia Plan Status quo Intravenous iron Optimize cardiac status Digoxin 0.25 mg once p.o. Watch and monitor renal parameters Avoid nephrotoxic's IV Venofer once, check CEA level, check stool for OB Afterload reduction and parameters for blood pressure medications Per orders Subjective ROS Limited/Unobtainable: No Constitutional: Reports: malaise Objective Objective Last 24 Hour Vital Signs Date Time Temp Pulse Resp B/P (MAP) Pulse Ox O2 Delivery O2 Flow Rate FiO2 10/17/19 12:00 98.2 56 20 121/75 (90) 100 10/17/19 09:00 Nasal Cannula 2.0 Nasal Cannula 4.0 Nasal Cannula 4.0 10/17/19 08:46 121/92 10/17/19 08:45 109 121/92 10/17/19 08:00 98.0 109 20 121/92 (102) 98 10/17/19 08:00 109 10/17/19 04:00 109 10/17/19 04:00 108 120/86 (97) 10/17/19 00:10 96.4 109 123/75 (91) 94 10/17/19 00:00 108 10/16/19 23:34 112 18 100 Nasal Cannula 4.0 36 109 20 98 10/16/19 21:08 100 124/93 10/16/19 21:06 96.3 100 124/93 (103) 10/16/19 21:00 Nasal Cannula 2.0 Nasal Cannula 4.0 Nasal Cannula 4.0 10/16/19 19:18 97 Nasal Cannula 4.0 36 10/16/19 19:18 108 20 97 Nasal Cannula 4.0 36 10/16/19 16:16 109 10/16/19 16:00 96.6 109 22 120/70 (87) 100 10/16/19 14:37 96.1 10/16/19 14:02 108 Intake and Output 10/16/19 10/17/19 19:00 07:00 Intake Total 240 ml Output Total 500 ml 700 ml Balance -260 ml -700 ml Intake Oral 240 ml Output Urine Total 500 ml 700 ml Laboratory Tests 10/17/19 06:22: White Blood Count 5.1, Red Blood Count 3.24L, Hemoglobin 9.8L, Hematocrit 31.2L , Mean Corpuscular Volume 96, Mean Corpuscular Hemoglobin 30.4, Mean Corpuscular Hemoglobin Concent 31.5L, Red Cell Distribution Width 16.3H, Platelet Count 76L, Mean Platelet Volume 7.6, Neutrophils (%) (Auto) , Lymphocytes (%) (Auto) , Monocytes (%) (Auto) , Eosinophils (%) (Auto) , Basophils (%) (Auto) , Differential Total Cells Counted 100, Neutrophils % ( Manual) 66, Lymphocytes % (Manual) 23, Monocytes % (Manual) 9, Eosinophils % ( Manual) 2, Basophils % (Manual) 0, Band Neutrophils 0, Platelet Estimate DecreasedL, Platelet Morphology Normal, Hypochromasia 1+, Anisocytosis 1+, Sodium Level 138, Potassium Level 4.3, Chloride Level 98, Carbon Dioxide Level 34H, Anion Gap 6, Blood Urea Nitrogen 29H, Creatinine 1.5H, Estimat Glomerular Filtration Rate 59.4, Glucose Level 99, Uric Acid 8.6H, Calcium Level 8.2L, Phosphorus Level 4.2, Magnesium Level 1.9, Total Bilirubin 0.5, Aspartate Amino Transf (AST/SGOT) 30, Alanine Aminotransferase (ALT/SGPT) 18, Alkaline Phosphatase 89, C-Reactive Protein, Quantitative 0.8, Pro-B-Type Natriuretic Peptide 2066H, Total Protein 7.1, Albumin 3.5, Globulin 3.6, Albumin/Globulin Ratio 1.0, Digoxin Level < 0.2L Height (Feet): 5 Height (Inches): 6.00 Weight (Pounds): 216 General Appearance: no apparent distress Cardiovascular: tachycardia Respiratory/Chest: decreased breath sounds Abdomen: distended Scout Cody MD October 17, 2019 13:12
--- NOTE | 2019-10-17 14:46 | Pulmonology Progress Note ---
Subjective ROS Limited/Unobtainable: No Hematologic: Reports: no symptoms Musculoskeletal: Reports: no symptoms Allergies: Coded Allergies: SIMVASTATIN (Verified Allergy, Unknown, 07/03/19) Uncoded Allergies: STATINS (Allergy, Unknown, 08/13/19) Objective Last 24 Hour Vital Signs Date Time Temp Pulse Resp B/P (MAP) Pulse Ox O2 Delivery O2 Flow Rate FiO2 10/17/19 13:15 56 10/17/19 12:00 108 10/17/19 12:00 98.2 56 20 121/75 (90) 100 10/17/19 09:00 Nasal Cannula 2.0 Nasal Cannula 4.0 Nasal Cannula 4.0 10/17/19 08:46 121/92 10/17/19 08:45 109 121/92 10/17/19 08:00 98.0 109 20 121/92 (102) 98 10/17/19 08:00 109 10/17/19 04:00 109 10/17/19 04:00 108 120/86 (97) 10/17/19 00:10 96.4 109 123/75 (91) 94 10/17/19 00:00 108 10/16/19 23:34 112 18 100 Nasal Cannula 4.0 36 109 20 98 10/16/19 21:08 100 124/93 10/16/19 21:06 96.3 100 124/93 (103) 10/16/19 21:00 Nasal Cannula 2.0 Nasal Cannula 4.0 Nasal Cannula 4.0 10/16/19 19:18 97 Nasal Cannula 4.0 36 10/16/19 19:18 108 20 97 Nasal Cannula 4.0 36 10/16/19 16:16 109 10/16/19 16:00 96.6 109 22 120/70 (87) 100 Intake and Output 10/16/19 10/17/19 19:00 07:00 Intake Total 240 ml Output Total 500 ml 700 ml Balance -260 ml -700 ml Intake Oral 240 ml Output Urine Total 500 ml 700 ml General Appearance: WD/WN HEENT: normocephalic, atraumatic Respiratory: chest wall non-tender, rhonchi - left, rhonchi - right Cardiovascular: normal peripheral pulses, normal rate Abdomen: normal bowel sounds, soft, non tender Genitourinary: normal external genitalia Extremities: no cyanosis Skin: no rash 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, no motor/sensory deficits Lymphatic: no neck adenopathy Laboratory Tests 10/17/19 06:22: White Blood Count 5.1, Red Blood Count 3.24L, Hemoglobin 9.8L, Hematocrit 31.2L , Mean Corpuscular Volume 96, Mean Corpuscular Hemoglobin 30.4, Mean Corpuscular Hemoglobin Concent 31.5L, Red Cell Distribution Width 16.3H, Platelet Count 76L, Mean Platelet Volume 7.6, Neutrophils (%) (Auto) , Lymphocytes (%) (Auto) , Monocytes (%) (Auto) , Eosinophils (%) (Auto) , Basophils (%) (Auto) , Differential Total Cells Counted 100, Neutrophils % ( Manual) 66, Lymphocytes % (Manual) 23, Monocytes % (Manual) 9, Eosinophils % ( Manual) 2, Basophils % (Manual) 0, Band Neutrophils 0, Platelet Estimate DecreasedL, Platelet Morphology Normal, Hypochromasia 1+, Anisocytosis 1+, Sodium Level 138, Potassium Level 4.3, Chloride Level 98, Carbon Dioxide Level 34H, Anion Gap 6, Blood Urea Nitrogen 29H, Creatinine 1.5H, Estimat Glomerular Filtration Rate 59.4, Glucose Level 99, Uric Acid 8.6H, Calcium Level 8.2L, Phosphorus Level 4.2, Magnesium Level 1.9, Total Bilirubin 0.5, Aspartate Amino Transf (AST/SGOT) 30, Alanine Aminotransferase (ALT/SGPT) 18, Alkaline Phosphatase 89, C-Reactive Protein, Quantitative 0.8, Pro-B-Type Natriuretic Peptide 2066H, Total Protein 7.1, Albumin 3.5, Globulin 3.6, Albumin/Globulin Ratio 1.0, Digoxin Level < 0.2L Current Medications Medications (Trade) Dose Ordered Sig/Marybeth Route PRN Reason Start Time Stop Time Status Last Admin Dose Admin Acetaminophen (Tylenol) 650 mg Q4H PRN ORAL T>100.5 10/11/19 21:00 11/10/19 20:59 Acetaminophen/ Hydrocodone Bitart ([place] 5/325) 1 tab Q6H PRN ORAL For Pain 10/11/19 23:45 10/18/19 23:44 10/14/19 08:57 Albuterol/ Ipratropium (Albuterol/ Ipratropium) 3 ml Q4H PRN HHN Shortness of Breath 10/16/19 23:15 10/21/19 23:14 10/16/19 23:34 Allopurinol (Zyloprim) 200 mg DAILY ORAL 10/15/19 09:45 11/14/19 09:44 10/17/19 08:46 Apixaban (Eliquis) 5 mg BID ORAL 10/12/19 18:00 01/10/20 17:59 10/17/19 08:45 Carvedilol (Coreg) 6.25 mg EVERY 12 HOURS ORAL 10/11/19 21:00 11/10/19 20:59 10/17/19 08:45 Dextrose (Dextrose 50%) 25 ml Q30M PRN IV Hypoglycemia 10/11/19 21:00 01/09/20 20:59 Dextrose (Dextrose 50%) 50 ml Q30MIN PRN IV Hypoglycemia 10/11/19 21:00 01/09/20 20:59 Digoxin (Lanoxin) 0.25 mg ONCE ORAL 10/17/19 13:15 10/17/19 15:00 Docusate Sodium (Colace) 100 mg THREE TIMES A DAY ORAL 10/14/19 18:00 11/13/19 17:59 10/17/19 13:42 Furosemide (Lasix) 40 mg BID ORAL 10/17/19 09:00 11/16/19 08:59 10/17/19 09:20 Heparin Sodium (Porcine) (Heparin 5000 units/ml) 5,000 units EVERY 12 HOURS SUBQ 10/12/19 09:00 11/26/19 08:59 Iron Sucrose 100 mg/Sodium Chloride 60 ml @ 240 mls/hr BEDTIME IV 10/16/19 21:00 10/20/19 21:14 Lisinopril (ZestriL) 5 mg DAILY ORAL 10/15/19 09:00 11/11/19 08:59 10/17/19 08:46 Morphine Sulfate (Morphine Sulfate) 2 mg Q4H PRN IVP For Pain 10/14/19 09:00 10/19/19 08:59 10/16/19 18:57 Ondansetron HCl (Zofran) 4 mg Q6H PRN IVP Nausea & Vomiting 10/11/19 21:00 11/10/19 20:59 Pantoprazole (Protonix) 40 mg EVERY 12 HOURS ORAL 10/14/19 13:15 11/13/19 13:14 10/17/19 08:45 Polyethylene Glycol (Miralax) 17 gm DAILYPRN PRN ORAL Constipation 10/11/19 21:00 11/10/19 20:59 Temazepam (Restoril) 15 mg HSPRN PRN ORAL Insomnia 10/11/19 21:00 10/18/19 20:59 Assessment/Plan Problems: (1) Acute on chronic congestive heart failure (2) COPD (chronic obstructive pulmonary disease) (3) Atrial fibrillation, chronic (4) Normocytic anemia (5) Acute on chronic renal insufficiency (6) Thrombocytopenia (7) Pulmonary HTN (8) HTN (hypertension) Assessment/Plan cxr reviewed: hazy parenchymal disease versus superimposed pleural fluid on the right intake and output balance is - 8 litters still short of breath respiratory treatment Echo showing EF 10-15% titrate fio2 to sat of 92% venous doppler to rule out DVT on Epixiban Palak Mccray MD October 17, 2019 14:46
[2019-10-17 16:07] VITALS: BP 121/97
--- NOTE | 2019-10-17 18:32 | Cardiology Progress Note ---
Assessment/Plan Assessment/Plan 1. Chronic systolic heart failure. 2. No evidence of coronary artery disease by cardiac catheterization at [facility] in 2018. 3. Atrial flutter with 2:1 block. 4. Chronic recurrent chest pains with multiple hospitalizations at [facility] as well as [facility] as well as [facility] [place], at least the ones known of. 5. Nonsustained ventricular tachycardia. 6. History of hypertension. 7. Prediabetes. 8. History of renal insufficiency. 9. Anemia. 10. Chronic schizophrenia. 11. Reported history of Munchausen syndrome. 12. Reported history of malingering. 13. Homelessness. he has been responding to the diuretics but no long has iv acces and refused iv per rn so i swtrich to po lasix , i will add metolazone in am bp seems fine is on on gdmt tele personally reviewed atrial flutter / tachy with 2:1 block he is able to walk to the br plt on the lower side keep on present diuretic dose as long as bp and cr allow weigh not avialabe Subjective ROS Limited/Unobtainable: Yes Subjective removed iv per rn , later rn offered to have IV reinsertion. per patient he would like to have one but he starts feeling SOB although he is saturation on 4L is >93% and in high folwer's position. per patient the only reason why he wanted to have IV access is because he wants Morphine IVP. PMH Systolic CHF, acute on chronic (HCC) Chest pain Abnormal EKG Cardiomyopathy (HCC) NSVT (nonsustained ventricular tachycardia) (HCC) Chronic venous stasis dermatitis of both lower extremities HTN (hypertension) Acute on chronic congestive heart failure (HCC) Elevated brain natriuretic peptide (BNP) level Acute exacerbation of CHF (congestive heart failure) (HCC) Endocrine/Metabolic Graves disease Thyrotoxicosis Prediabetes Gastrointestinal and Abdominal Acute pancreatitis Genitourinary and Reproductive Renal insufficiency Acute kidney injury (HCC) Hyperkalemia Hematology and Neoplasia Anemia Infectious Diseases Cellulitis of lower extremity Mental Health Chronic schizophrenia (HCC) Munchausen's syndrome Paranoid schizophrenia (HCC) Adjustment disorder with depressed mood Pulmonary and Pneumonias Acute on chronic respiratory failure with hypercapnia Symptoms and Signs Edema extremities Exertional dyspnea Leg swelling Tobacco Smoker Other Homelessness Malingering Objective Last 24 Hour Vital Signs Date Time Temp Pulse Resp B/P (MAP) Pulse Ox O2 Delivery O2 Flow Rate FiO2 10/17/19 16:49 109 10/17/19 16:07 98.1 104 20 121/97 (105) 100 10/17/19 13:15 56 10/17/19 12:00 108 10/17/19 12:00 98.2 56 20 121/75 (90) 100 10/17/19 09:00 Nasal Cannula 2.0 Nasal Cannula 4.0 Nasal Cannula 4.0 10/17/19 08:46 121/92 10/17/19 08:45 109 121/92 10/17/19 08:00 98.0 109 20 121/92 (102) 98 10/17/19 08:00 109 10/17/19 04:00 109 10/17/19 04:00 108 120/86 (97) 10/17/19 00:10 96.4 109 123/75 (91) 94 10/17/19 00:00 108 10/16/19 23:34 112 18 100 Nasal Cannula 4.0 36 109 20 98 10/16/19 21:08 100 124/93 10/16/19 21:06 96.3 100 124/93 (103) 10/16/19 21:00 Nasal Cannula 2.0 Nasal Cannula 4.0 Nasal Cannula 4.0 10/16/19 19:18 97 Nasal Cannula 4.0 36 10/16/19 19:18 108 20 97 Nasal Cannula 4.0 36 Intake and Output 10/16/19 10/17/19 19:00 07:00 Intake Total 240 ml Output Total 500 ml 700 ml Balance -260 ml -700 ml Intake Oral 240 ml Output Urine Total 500 ml 700 ml Laboratory Tests Test 10/17/19 06:22 White Blood Count 5.1 K/UL (4.8-10.8) Red Blood Count 3.24 M/UL (4.70-6.10) L Hemoglobin 9.8 G/DL (14.2-18.0) L Hematocrit 31.2 % (42.0-52.0) L Mean Corpuscular Volume 96 FL (80-99) Mean Corpuscular Hemoglobin 30.4 PG (27.0-31.0) Mean Corpuscular Hemoglobin Concent 31.5 G/DL (32.0-36.0) L Red Cell Distribution Width 16.3 % (11.6-14.8) H Platelet Count 76 K/UL (150-450) L Mean Platelet Volume 7.6 FL (6.5-10.1) Neutrophils (%) (Auto) % (45.0-75.0) Lymphocytes (%) (Auto) % (20.0-45.0) Monocytes (%) (Auto) % (1.0-10.0) Eosinophils (%) (Auto) % (0.0-3.0) Basophils (%) (Auto) % (0.0-2.0) Differential Total Cells Counted 100 Neutrophils % (Manual) 66 % (45-75) Lymphocytes % (Manual) 23 % (20-45) Monocytes % (Manual) 9 % (1-10) Eosinophils % (Manual) 2 % (0-3) Basophils % (Manual) 0 % (0-2) Band Neutrophils 0 % (0-8) Platelet Estimate Decreased L Platelet Morphology Normal Hypochromasia 1+ Anisocytosis 1+ Sodium Level 138 MMOL/L (136-145) Potassium Level 4.3 MMOL/L (3.5-5.1) Chloride Level 98 MMOL/L (98-107) Carbon Dioxide Level 34 MMOL/L (21-32) H Anion Gap 6 mmol/L (5-15) Blood Urea Nitrogen 29 mg/dL (7-18) H Creatinine 1.5 MG/DL (0.55-1.30) H Estimat Glomerular Filtration Rate 59.4 mL/min (>60) Glucose Level 99 MG/DL (74-106) Uric Acid 8.6 MG/DL (2.6-7.2) H Calcium Level 8.2 MG/DL (8.5-10.1) L Phosphorus Level 4.2 MG/DL (2.5-4.9) Magnesium Level 1.9 MG/DL (1.8-2.4) Total Bilirubin 0.5 MG/DL (0.2-1.0) Aspartate Amino Transf (AST/SGOT) 30 U/L (15-37) Alanine Aminotransferase (ALT/SGPT) 18 U/L (12-78) Alkaline Phosphatase 89 U/L (46-116) C-Reactive Protein, Quantitative 0.8 mg/dL (0.00-0.90) Pro-B-Type Natriuretic Peptide 2066 pg/mL (0-125) H Total Protein 7.1 G/DL (6.4-8.2) Albumin 3.5 G/DL (3.4-5.0) Globulin 3.6 g/dL Albumin/Globulin Ratio 1.0 (1.0-2.7) Digoxin Level < 0.2 NG/ML (0.5-2.0) Tone Radford MD October 17, 2019 18:32
[2019-10-17] MEDS: Albuterol/Ipratropium 3ml neb HHN PRN (19:57)
[2019-10-17 20:00] VITALS: BP 135/99
[2019-10-17] MEDS: Iron Sucrose 100 MG in NS 55 ML IV SCH (21:30)
[2019-10-18] VITALS: BP 142/81
[2019-10-18] MEDS: Albuterol/Ipratropium 3ml neb HHN PRN (03:35)
[2019-10-18 04:00] VITALS: BP 127/76
[2019-10-18 07:22] LABS: ANION GAP 8 mmol/L (5-15); BLOOD UREA NITROGEN 26 mg/dL (7-18); CALCIUM 8.5 MG/DL (8.5-10.1); CARBON DIOXIDE 32 MMOL/L (21-32); CHLORIDE 99 MMOL/L (98-107); CREATININE 1.4 MG/DL (0.55-1.30); POTASSIUM 4.1 MMOL/L (3.5-5.1); SODIUM 139 MMOL/L (136-145)
[2019-10-18 08:00] VITALS: BP 141/66
[2019-10-18] MEDS: Carvedilol 6.25mg Tab ORAL SCH ×2 (09:36→21:01)
[2019-10-18] MEDS: Allopurinol 100mg Tab ORAL SCH (09:38)
[2019-10-18] MEDS: Lisinopril 2.5mg tab ORAL SCH (09:38)
[2019-10-18] MEDS: Docusate 100mg cap ORAL SCH ×3 (09:38→17:43)
[2019-10-18] MEDS: Eliquis 5mg tablet ORAL SCH ×2 (09:39→17:44)
[2019-10-18] MEDS: Furosemide 40mg tab ORAL SCH ×2 (09:39→17:43)
[2019-10-18] MEDS: Heparin 5000 units/ml inj SUBQ SCH ×2 (09:39→20:40)
[2019-10-18 12:00] VITALS: BP 118/89
--- NOTE | 2019-10-18 12:14 | Pulmonology Progress Note ---
Subjective ROS Limited/Unobtainable: No Constitutional: Reports: no symptoms HEENT: Repors: no symptoms Hematologic: Reports: no symptoms Musculoskeletal: Reports: no symptoms Allergies: Coded Allergies: SIMVASTATIN (Verified Allergy, Unknown, 07/03/19) Uncoded Allergies: STATINS (Allergy, Unknown, 08/13/19) Objective Last 24 Hour Vital Signs Date Time Temp Pulse Resp B/P (MAP) Pulse Ox O2 Delivery O2 Flow Rate FiO2 10/18/19 09:38 141/66 10/18/19 09:36 74 141/66 10/18/19 08:00 98.6 74 20 141/66 (91) 93 10/18/19 08:00 Nasal Cannula 2.0 Nasal Cannula 4.0 Nasal Cannula 4.0 10/18/19 07:40 108 10/18/19 04:00 96.8 108 22 127/76 (93) 98 10/18/19 04:00 108 10/18/19 03:35 106 20 100 Nasal Cannula 4.0 36 108 20 97 10/18/19 00:00 98.1 110 20 142/81 (101) 98 10/18/19 00:00 110 10/17/19 21:29 108 135/99 10/17/19 21:00 Nasal Cannula 2.0 Nasal Cannula 4.0 Nasal Cannula 4.0 10/17/19 20:00 98.6 108 20 135/99 (111) 99 10/17/19 20:00 108 10/17/19 19:58 95 Nasal Cannula 4.0 36 10/17/19 19:58 103 22 95 Nasal Cannula 4.0 36 10/17/19 19:58 110 20 99 Nasal Cannula 4.0 36 104 22 95 10/17/19 16:49 109 10/17/19 16:07 98.1 104 20 121/97 (105) 100 10/17/19 13:15 56 Intake and Output 10/17/19 10/18/19 18:59 06:59 Intake Total 460 ml 400 ml Balance 460 ml 400 ml Intake Oral 460 ml Other 400 ml # Voids 2 4 General Appearance: WD/WN HEENT: normocephalic, atraumatic Respiratory: chest wall non-tender, rhonchi - left, rhonchi - right Cardiovascular: normal peripheral pulses, normal rate Abdomen: normal bowel sounds, soft, non tender Genitourinary: normal external genitalia Extremities: no cyanosis Skin: no rash 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, no motor/sensory deficits Lymphatic: no neck adenopathy Laboratory Tests 10/18/19 06:15: Sodium Level 139, Potassium Level 4.1, Chloride Level 99, Carbon Dioxide Level 32, Anion Gap 8, Blood Urea Nitrogen 26H, Creatinine 1.4H, Estimat Glomerular Filtration Rate > 60, Glucose Level 101, Calcium Level 8.5 Current Medications Medications (Trade) Dose Ordered Sig/Marybeth Route PRN Reason Start Time Stop Time Status Last Admin Dose Admin Acetaminophen (Tylenol) 650 mg Q4H PRN ORAL T>100.5 10/11/19 21:00 11/10/19 20:59 Acetaminophen/ Hydrocodone Bitart ([place] 5/325) 1 tab Q6H PRN ORAL For Pain 10/11/19 23:45 10/18/19 23:44 10/14/19 08:57 Albuterol/ Ipratropium (Albuterol/ Ipratropium) 3 ml Q4H PRN HHN Shortness of Breath 10/16/19 23:15 10/21/19 23:14 10/18/19 03:35 Allopurinol (Zyloprim) 200 mg DAILY ORAL 10/15/19 09:45 11/14/19 09:44 10/18/19 09:38 Apixaban (Eliquis) 5 mg BID ORAL 10/12/19 18:00 01/10/20 17:59 10/17/19 17:31 Carvedilol (Coreg) 6.25 mg EVERY 12 HOURS ORAL 10/11/19 21:00 11/10/19 20:59 10/18/19 09:36 Dextrose (Dextrose 50%) 25 ml Q30M PRN IV Hypoglycemia 10/11/19 21:00 01/09/20 20:59 Dextrose (Dextrose 50%) 50 ml Q30MIN PRN IV Hypoglycemia 10/11/19 21:00 01/09/20 20:59 Docusate Sodium (Colace) 100 mg THREE TIMES A DAY ORAL 10/14/19 18:00 11/13/19 17:59 10/18/19 09:38 Ferrous Sulfate (Feosol) 325 mg THREE TIMES A DAY ORAL 10/17/19 21:45 01/15/20 21:44 10/18/19 09:36 Furosemide (Lasix) 40 mg BID ORAL 10/17/19 09:00 11/16/19 08:59 10/18/19 09:39 Heparin Sodium (Porcine) (Heparin 5000 units/ml) 5,000 units EVERY 12 HOURS SUBQ 10/12/19 09:00 11/26/19 08:59 Lisinopril (ZestriL) 5 mg DAILY ORAL 10/15/19 09:00 11/11/19 08:59 10/18/19 09:38 Metolazone (Zaroxolyn) 5 mg DAILY ORAL 10/18/19 09:00 11/17/19 08:59 10/18/19 09:38 Morphine Sulfate (Morphine Sulfate) 2 mg Q4H PRN IVP For Pain 10/14/19 09:00 10/19/19 08:59 10/16/19 18:57 Ondansetron HCl (Zofran) 4 mg Q6H PRN IVP Nausea & Vomiting 10/11/19 21:00 11/10/19 20:59 Pantoprazole (Protonix) 40 mg EVERY 12 HOURS ORAL 10/14/19 13:15 11/13/19 13:14 10/18/19 09:36 Polyethylene Glycol (Miralax) 17 gm DAILYPRN PRN ORAL Constipation 10/11/19 21:00 11/10/19 20:59 Temazepam (Restoril) 15 mg HSPRN PRN ORAL Insomnia 10/11/19 21:00 10/18/19 20:59 Assessment/Plan Problems: (1) Acute on chronic congestive heart failure (2) COPD (chronic obstructive pulmonary disease) (3) Atrial fibrillation, chronic (4) Normocytic anemia (5) Acute on chronic renal insufficiency (6) Thrombocytopenia (7) Pulmonary HTN (8) HTN (hypertension) Assessment/Plan still c/o shortness of breath cxr reviewed: hazy parenchymal disease versus superimposed pleural fluid on the right intake and output balance is - 7.4 litters still short of breath respiratory treatment Echo showing EF 10-15% titrate fio2 to sat of 92% venous doppler to rule out DVT on Epixiban Palak Mccray MD October 18, 2019 12:14
--- NOTE | 2019-10-18 13:01 | Nephrology Progress Note ---
Assessment/Plan Problem List: (1) Acute on chronic renal insufficiency Assessment: Creatinine lowering (2) Anemia Assessment: Appears to be iron deficiency (3) Pulmonary HTN Assessment Renal failure most likely secondary to cardiomyopathy and cardiorenal syndrome Acute CHF exacerbation on chronic with mild pulmonary edema and fluid overload Severe dilated cardiomyopathy with EF 10 to 15% COPD Moderate pulmonary hypertension Hypertension Anemia , iron panel suggestive of iron deficiency anemia Schizophrenia with hx of diagnosed Munchausen syndrome and malingering Liver cirrhosis, splenomegaly, thrombocytopenia Plan Status quo- Intravenous iron Optimize cardiac status Digoxin 0.25 mg once p.o. Watch and monitor renal parameters Avoid nephrotoxic's IV Venofer once, check CEA level, check stool for OB Afterload reduction and parameters for blood pressure medications Per orders Subjective ROS Limited/Unobtainable: No Constitutional: Reports: malaise, weakness Objective Objective Last 24 Hour Vital Signs Date Time Temp Pulse Resp B/P (MAP) Pulse Ox O2 Delivery O2 Flow Rate FiO2 10/18/19 12:00 98.4 108 20 118/89 (99) 98 10/18/19 12:00 109 10/18/19 09:38 141/66 10/18/19 09:36 74 141/66 10/18/19 08:00 98.6 74 20 141/66 (91) 93 10/18/19 08:00 Nasal Cannula 2.0 Nasal Cannula 4.0 Nasal Cannula 4.0 10/18/19 07:40 108 10/18/19 04:00 96.8 108 22 127/76 (93) 98 10/18/19 04:00 108 10/18/19 03:35 106 20 100 Nasal Cannula 4.0 36 108 20 97 10/18/19 00:00 98.1 110 20 142/81 (101) 98 10/18/19 00:00 110 10/17/19 21:29 108 135/99 10/17/19 21:00 Nasal Cannula 2.0 Nasal Cannula 4.0 Nasal Cannula 4.0 10/17/19 20:00 98.6 108 20 135/99 (111) 99 10/17/19 20:00 108 10/17/19 19:58 95 Nasal Cannula 4.0 36 10/17/19 19:58 103 22 95 Nasal Cannula 4.0 36 10/17/19 19:58 110 20 99 Nasal Cannula 4.0 36 104 22 95 10/17/19 16:49 109 10/17/19 16:07 98.1 104 20 121/97 (105) 100 10/17/19 13:15 56 Intake and Output 10/17/19 10/18/19 19:00 07:00 Intake Total 460 ml 400 ml Balance 460 ml 400 ml Intake Oral 460 ml Other 400 ml # Voids 2 4 Laboratory Tests 10/18/19 06:15: Sodium Level 139, Potassium Level 4.1, Chloride Level 99, Carbon Dioxide Level 32, Anion Gap 8, Blood Urea Nitrogen 26H, Creatinine 1.4H, Estimat Glomerular Filtration Rate > 60, Glucose Level 101, Calcium Level 8.5 Height (Feet): 5 Height (Inches): 6.00 Weight (Pounds): 211 General Appearance: no apparent distress, lethargic Cardiovascular: tachycardia, other - Variable rate Respiratory/Chest: decreased breath sounds Abdomen: distended Scout Cody MD October 18, 2019 13:01
[2019-10-18 16:19] VITALS: BP 112/63
--- NOTE | 2019-10-18 17:08 | Internal Med Progress Note ---
Subjective Date of Service: October 18, 2019 Physician Name Yousif Yoder Attending Physician Neftali Tinsley MD Current Medications Medications (Trade) Dose Ordered Sig/Marybeth Route PRN Reason Start Time Stop Time Status Last Admin Dose Admin Acetaminophen (Tylenol) 650 mg Q4H PRN ORAL T>100.5 10/11/19 21:00 11/10/19 20:59 Acetaminophen/ Hydrocodone Bitart ([place] 5/325) 1 tab Q6H PRN ORAL For Pain 10/11/19 23:45 10/18/19 23:44 10/14/19 08:57 Albuterol/ Ipratropium (Albuterol/ Ipratropium) 3 ml Q4H PRN HHN Shortness of Breath 10/16/19 23:15 10/21/19 23:14 10/18/19 03:35 Allopurinol (Zyloprim) 200 mg DAILY ORAL 10/15/19 09:45 11/14/19 09:44 10/18/19 09:38 Apixaban (Eliquis) 5 mg BID ORAL 10/12/19 18:00 01/10/20 17:59 10/17/19 17:31 Carvedilol (Coreg) 6.25 mg EVERY 12 HOURS ORAL 10/11/19 21:00 11/10/19 20:59 10/18/19 09:36 Dextrose (Dextrose 50%) 25 ml Q30M PRN IV Hypoglycemia 10/11/19 21:00 01/09/20 20:59 Dextrose (Dextrose 50%) 50 ml Q30MIN PRN IV Hypoglycemia 10/11/19 21:00 01/09/20 20:59 Docusate Sodium (Colace) 100 mg THREE TIMES A DAY ORAL 10/14/19 18:00 11/13/19 17:59 10/18/19 13:26 Ferrous Sulfate (Feosol) 325 mg THREE TIMES A DAY ORAL 10/17/19 21:45 01/15/20 21:44 10/18/19 13:26 Furosemide (Lasix) 40 mg BID ORAL 10/17/19 09:00 11/16/19 08:59 10/18/19 09:39 Heparin Sodium (Porcine) (Heparin 5000 units/ml) 5,000 units EVERY 12 HOURS SUBQ 10/12/19 09:00 11/26/19 08:59 Lisinopril (ZestriL) 5 mg DAILY ORAL 10/15/19 09:00 11/11/19 08:59 10/18/19 09:38 Metolazone (Zaroxolyn) 5 mg DAILY ORAL 10/18/19 09:00 11/17/19 08:59 10/18/19 09:38 Morphine Sulfate (Morphine Sulfate) 2 mg Q4H PRN IVP For Pain 10/14/19 09:00 10/19/19 08:59 10/16/19 18:57 Ondansetron HCl (Zofran) 4 mg Q6H PRN IVP Nausea & Vomiting 10/11/19 21:00 11/10/19 20:59 Pantoprazole (Protonix) 40 mg EVERY 12 HOURS ORAL 10/14/19 13:15 11/13/19 13:14 10/18/19 09:36 Polyethylene Glycol (Miralax) 17 gm DAILYPRN PRN ORAL Constipation 10/11/19 21:00 11/10/19 20:59 Temazepam (Restoril) 15 mg HSPRN PRN ORAL Insomnia 10/11/19 21:00 10/18/19 20:59 Allergies: Coded Allergies: SIMVASTATIN (Verified Allergy, Unknown, 07/03/19) Uncoded Allergies: STATINS (Allergy, Unknown, 08/13/19) ROS Limited/Unobtainable: No Constitutional: Reports: no symptoms HEENT: Reports: no symptoms Cardiovascular: Reports: no symptoms Respiratory: Reports: shortness of breath Gastrointestinal/Abdominal: Reports: no symptoms Genitourinary: Reports: no symptoms Neurologic/Psychiatric: Reports: no symptoms Subjective 54 YO M admitted with shortness of breath. Now Acute on chronic congestive heart failure. Cover for Int Neal-Dr Tinsley. Continues to C/O Shortness of breath Objective Last Vital Signs Date Time Temp Pulse Resp B/P (MAP) Pulse Ox O2 Delivery O2 Flow Rate FiO2 10/18/19 16:19 98.6 110 22 112/63 (79) 99 10/18/19 08:00 Nasal Cannula 2.0 Nasal Cannula 4.0 Nasal Cannula 4.0 10/18/19 03:35 36 Laboratory Tests Test 10/18/19 06:15 Sodium Level 139 MMOL/L (136-145) Potassium Level 4.1 MMOL/L (3.5-5.1) Chloride Level 99 MMOL/L (98-107) Carbon Dioxide Level 32 MMOL/L (21-32) Anion Gap 8 mmol/L (5-15) Blood Urea Nitrogen 26 mg/dL (7-18) H Creatinine 1.4 MG/DL (0.55-1.30) H Estimat Glomerular Filtration Rate > 60 mL/min (>60) Glucose Level 101 MG/DL (74-106) Calcium Level 8.5 MG/DL (8.5-10.1) Intake and Output 10/17/19 10/18/19 19:00 07:00 Intake Total 460 ml 400 ml Balance 460 ml 400 ml Intake Oral 460 ml Other 400 ml # Voids 2 4 Objective PHYSICAL EXAMINATION: GENERAL: Patient is awake and responsive. No acute distress. HEAD AND NECK: Pupils are equal and reactive to light. Extraocular movements are intact. Neck was supple. Positive JVD. LUNGS: Good air entry. Decreased air in bases. No wheezing or rhonchi. HEART: S1, S2. Tachycardic. Distant heart sounds. No murmur or gallops. ABDOMEN: Soft, nondistended, nontender. Positive bowel sounds. Morbidly obese. GENITOURINARY: Noted scrotal edema. No tenderness. No erythema. EXTREMITIES: No cyanosis or clubbing. +2 edema bilateral lower extremity with hyperpigmentation around both lower extremities. NEUROLOGIC: Cranial nerves II through XII grossly intact. Motor is 5/5 in all extremities. Gait was not assessed due to patient's status. RECTAL: Exam refused and deferred. PSYCHIATRIC: Mood and affect is calm and relaxed at this time, but he has history of schizophrenia. Assessment/Plan Assessment/Plan ASSESSMENT: 1. Acute CHF exacerbation on chronic with mild pulmonary edema and fluid overload. LVEF=10-15% 2. Hypertension. 3. Morbid obesity. 4. Atrial flutter. 5. History of paranoid schizophrenia and malingering. 6. History of Graves disease. 7. Prediabetic. 8. History of lower extremity chronic edema. 9. Anemia. 10. Chronic kidney disease. PLAN: 1. Admit patient to monitored unit. 2. Dr. Tone Chapman = Cardiology consult 3. Dr. Mccray=Pulmonary Critical Care. 4. Lasix IV 40 mg twice a day. 5. Code status is Full Code. 6. DVT prophylaxis=Eliquis. Yousif Yoder MD October 18, 2019 17:08
[2019-10-18 20:00] VITALS: BP 126/88
[2019-10-18] MEDS: HYDROcodone/Acetamin 5/325 tab ORAL PRN (23:38)
[2019-10-19] VITALS: BP 126/90
[2019-10-19 04:15] VITALS: BP 120/91
[2019-10-19] MEDS: Albuterol/Ipratropium 3ml neb HHN PRN ×3 (05:30→17:12)
[2019-10-19 06:24] LABS: HEMATOCRIT 33.1 % (42.0-52.0); HEMOGLOBIN 10.7 G/DL (14.2-18.0); MEAN CORPUSCULAR VOLUME 95 FL (80-99); PLATELET COUNT 93 K/UL (150-450); RED BLOOD COUNT 3.47 M/UL (4.70-6.10); RED CELL DISTRIBUTION WIDTH 15.6 % (11.6-14.8); WHITE BLOOD COUNT 5.7 K/UL (4.8-10.8)
[2019-10-19 06:54] LABS: ANION GAP 8 mmol/L (5-15); BLOOD UREA NITROGEN 26 mg/dL (7-18); CALCIUM 8.3 MG/DL (8.5-10.1); CARBON DIOXIDE 30 MMOL/L (21-32); CHLORIDE 98 MMOL/L (98-107); CREATININE 1.4 MG/DL (0.55-1.30); POTASSIUM 4.2 MMOL/L (3.5-5.1); SODIUM 136 MMOL/L (136-145)
[2019-10-19 08:00] VITALS: BP 126/70
[2019-10-19 08:41] LABS: ALANINE AMINOTRANSFERASE 18 U/L (12-78); ALBUMIN 3.6 G/DL (3.4-5.0); ALKALINE PHOSPHATASE 90 U/L (46-116); ASPARTATE AMINO TRANSFERASE 41 U/L (15-37); BILIRUBIN,DIRECT 0.3 MG/DL (0.0-0.3); BILIRUBIN,TOTAL 0.8 MG/DL (0.2-1.0); PHOSPHORUS 3.8 MG/DL (2.5-4.9)
[2019-10-19] MEDS: Heparin 5000 units/ml inj SUBQ SCH ×2 (09:00→20:53)
[2019-10-19] MEDS: Lisinopril 2.5mg tab ORAL SCH (09:01)
[2019-10-19] MEDS: Eliquis 5mg tablet ORAL SCH ×2 (09:02→18:02)
[2019-10-19] MEDS: Docusate 100mg cap ORAL SCH ×3 (09:02→18:02)
[2019-10-19] MEDS: Carvedilol 6.25mg Tab ORAL SCH ×2 (09:02→20:53)
[2019-10-19] MEDS: Furosemide 40mg tab ORAL SCH ×2 (09:02→18:02)
[2019-10-19] MEDS: Allopurinol 100mg Tab ORAL SCH (09:03)
--- NOTE | 2019-10-19 10:07 | Nephrology Progress Note ---
Assessment/Plan Problem List: (1) Acute on chronic renal insufficiency Assessment: Creatinine lowering (2) Anemia Assessment: Appears to be iron deficiency (3) Pulmonary HTN Assessment Renal failure most likely secondary to cardiomyopathy and cardiorenal syndrome Acute CHF exacerbation on chronic with mild pulmonary edema and fluid overload Severe dilated cardiomyopathy with EF 10 to 15% COPD Moderate pulmonary hypertension Hypertension Anemia , iron panel suggestive of iron deficiency anemia Schizophrenia with hx of diagnosed Munchausen syndrome and malingering Liver cirrhosis, splenomegaly, thrombocytopenia Plan Status quo-serum creatinine stable 1.4 Intravenous iron Optimize cardiac status, per broadband engineer's advice Watch and monitor renal parameters Previously Avoid nephrotoxic's check CEA level, check stool for OB Afterload reduction and parameters for blood pressure medications Per orders Subjective ROS Limited/Unobtainable: No Constitutional: Reports: malaise, weakness Objective Objective Last 24 Hour Vital Signs Date Time Temp Pulse Resp B/P (MAP) Pulse Ox O2 Delivery O2 Flow Rate FiO2 10/19/19 09:02 105 120/91 10/19/19 09:01 120/91 10/19/19 08:33 105 20 100 Nasal Cannula 4.0 36 101 20 98 10/19/19 07:00 101 20 98 Nasal Cannula 4.0 36 10/19/19 07:00 98 Nasal Cannula 4.0 36 10/19/19 04:15 97.4 87 20 120/91 (101) 99 10/19/19 04:00 110 10/19/19 01:12 104 21 100 Nasal Cannula 4.0 36 106 21 98 10/19/19 00:49 98.5 10/19/19 00:00 98.5 110 20 126/90 (102) 98 10/19/19 00:00 111 10/18/19 21:24 Nasal Cannula 2.0 Nasal Cannula 4.0 Nasal Cannula 4.0 10/18/19 21:01 87 128/86 10/18/19 20:00 110 10/18/19 20:00 97.7 81 20 126/88 (101) 98 10/18/19 19:29 101 22 96 Nasal Cannula 4.0 36 10/18/19 19:29 97 Nasal Cannula 4.0 36 10/18/19 16:19 98.6 110 22 112/63 (79) 99 10/18/19 15:51 111 10/18/19 13:26 109 10/18/19 12:00 98.4 108 20 118/89 (99) 98 10/18/19 12:00 109 Intake and Output 10/18/19 10/19/19 18:59 06:59 Intake Total 830 ml Output Total 1300 ml Balance -470 ml Intake Oral 830 ml Output Urine Total 1300 ml # Voids 4 Laboratory Tests 10/19/19 05:55: Phosphorus Level 3.8, Magnesium Level 2.0, Total Bilirubin 0.8, Direct Bilirubin 0.3, Aspartate Amino Transf (AST/SGOT) 41H, Alanine Aminotransferase ( ALT/SGPT) 18, Alkaline Phosphatase 90, Total Protein 7.4, Albumin 3.6 10/19/19 05:57: White Blood Count 5.7, Red Blood Count 3.47L, Hemoglobin 10.7L, Hematocrit 33.1L , Mean Corpuscular Volume 95, Mean Corpuscular Hemoglobin 30.7, Mean Corpuscular Hemoglobin Concent 32.2, Red Cell Distribution Width 15.6H, Platelet Count 93L, Mean Platelet Volume 8.6, Neutrophils (%) (Auto) , Lymphocytes (%) (Auto) , Monocytes (%) (Auto) , Eosinophils (%) (Auto) , Basophils (%) (Auto) , Differential Total Cells Counted 100, Neutrophils % ( Manual) 62, Lymphocytes % (Manual) 24, Monocytes % (Manual) 8, Eosinophils % ( Manual) 6H, Basophils % (Manual) 0, Band Neutrophils 0, Platelet Estimate DecreasedL, Platelet Morphology Normal, Sodium Level 136, Potassium Level 4.2, Chloride Level 98, Carbon Dioxide Level 30, Anion Gap 8, Blood Urea Nitrogen 26H , Creatinine 1.4H, Estimat Glomerular Filtration Rate > 60, Glucose Level 102, Calcium Level 8.3L Height (Feet): 5 Height (Inches): 6.00 Weight (Pounds): 211 General Appearance: no apparent distress Cardiovascular: tachycardia Respiratory/Chest: decreased breath sounds Abdomen: distended Scout Cody MD October 19, 2019 10:07
[2019-10-19 11:58] VITALS: BP 112/77
--- NOTE | 2019-10-19 13:58 | Pulmonology Progress Note ---
Subjective ROS Limited/Unobtainable: No Constitutional: Reports: no symptoms HEENT: Repors: no symptoms Hematologic: Reports: no symptoms Musculoskeletal: Reports: no symptoms Allergies: Coded Allergies: SIMVASTATIN (Verified Allergy, Unknown, 07/03/19) Uncoded Allergies: STATINS (Allergy, Unknown, 08/13/19) Objective Last 24 Hour Vital Signs Date Time Temp Pulse Resp B/P (MAP) Pulse Ox O2 Delivery O2 Flow Rate FiO2 10/19/19 12:10 109 10/19/19 11:58 97.9 88 20 112/77 (89) 98 10/19/19 09:02 105 120/91 10/19/19 09:01 120/91 10/19/19 09:00 Nasal Cannula 6.0 10/19/19 08:33 105 20 100 Nasal Cannula 4.0 36 101 20 98 10/19/19 08:00 96.6 106 20 126/70 (88) 100 10/19/19 08:00 120 10/19/19 07:00 101 20 98 Nasal Cannula 4.0 36 10/19/19 07:00 98 Nasal Cannula 4.0 36 10/19/19 04:15 97.4 87 20 120/91 (101) 99 10/19/19 04:00 110 10/19/19 01:12 104 21 100 Nasal Cannula 4.0 36 106 21 98 10/19/19 00:49 98.5 10/19/19 00:00 98.5 110 20 126/90 (102) 98 10/19/19 00:00 111 10/18/19 21:24 Nasal Cannula 2.0 Nasal Cannula 4.0 Nasal Cannula 4.0 10/18/19 21:01 87 128/86 10/18/19 20:00 110 10/18/19 20:00 97.7 81 20 126/88 (101) 98 10/18/19 19:29 101 22 96 Nasal Cannula 4.0 36 10/18/19 19:29 97 Nasal Cannula 4.0 36 10/18/19 16:19 98.6 110 22 112/63 (79) 99 10/18/19 15:51 111 Intake and Output 10/18/19 10/19/19 19:00 07:00 Intake Total 830 ml Output Total 1300 ml Balance -470 ml Intake Oral 830 ml Output Urine Total 1300 ml # Voids 4 General Appearance: WD/WN HEENT: normocephalic, atraumatic Respiratory: chest wall non-tender, rhonchi - left, rhonchi - right Cardiovascular: normal peripheral pulses, normal rate Abdomen: normal bowel sounds, soft, non tender Genitourinary: normal external genitalia Extremities: no cyanosis Skin: no rash 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, no motor/sensory deficits Lymphatic: no neck adenopathy Laboratory Tests 10/19/19 05:55: Phosphorus Level 3.8, Magnesium Level 2.0, Total Bilirubin 0.8, Direct Bilirubin 0.3, Aspartate Amino Transf (AST/SGOT) 41H, Alanine Aminotransferase ( ALT/SGPT) 18, Alkaline Phosphatase 90, Total Protein 7.4, Albumin 3.6 10/19/19 05:57: White Blood Count 5.7, Red Blood Count 3.47L, Hemoglobin 10.7L, Hematocrit 33.1L , Mean Corpuscular Volume 95, Mean Corpuscular Hemoglobin 30.7, Mean Corpuscular Hemoglobin Concent 32.2, Red Cell Distribution Width 15.6H, Platelet Count 93L, Mean Platelet Volume 8.6, Neutrophils (%) (Auto) , Lymphocytes (%) (Auto) , Monocytes (%) (Auto) , Eosinophils (%) (Auto) , Basophils (%) (Auto) , Differential Total Cells Counted 100, Neutrophils % ( Manual) 62, Lymphocytes % (Manual) 24, Monocytes % (Manual) 8, Eosinophils % ( Manual) 6H, Basophils % (Manual) 0, Band Neutrophils 0, Platelet Estimate DecreasedL, Platelet Morphology Normal, Sodium Level 136, Potassium Level 4.2, Chloride Level 98, Carbon Dioxide Level 30, Anion Gap 8, Blood Urea Nitrogen 26H , Creatinine 1.4H, Estimat Glomerular Filtration Rate > 60, Glucose Level 102, Calcium Level 8.3L Current Medications Medications (Trade) Dose Ordered Sig/Marybeth Route PRN Reason Start Time Stop Time Status Last Admin Dose Admin Acetaminophen (Tylenol) 650 mg Q4H PRN ORAL T>100.5 10/11/19 21:00 11/10/19 20:59 Albuterol/ Ipratropium (Albuterol/ Ipratropium) 3 ml Q4H PRN HHN Shortness of Breath 10/16/19 23:15 10/21/19 23:14 10/19/19 08:33 Allopurinol (Zyloprim) 200 mg DAILY ORAL 10/15/19 09:45 11/14/19 09:44 10/19/19 09:03 Apixaban (Eliquis) 5 mg BID ORAL 10/12/19 18:00 01/10/20 17:59 10/19/19 09:02 Carvedilol (Coreg) 6.25 mg EVERY 12 HOURS ORAL 10/11/19 21:00 11/10/19 20:59 10/19/19 09:02 Dextrose (Dextrose 50%) 25 ml Q30M PRN IV Hypoglycemia 10/11/19 21:00 01/09/20 20:59 Dextrose (Dextrose 50%) 50 ml Q30MIN PRN IV Hypoglycemia 10/11/19 21:00 01/09/20 20:59 Docusate Sodium (Colace) 100 mg THREE TIMES A DAY ORAL 10/14/19 18:00 11/13/19 17:59 10/19/19 09:02 Ferrous Sulfate (Feosol) 325 mg THREE TIMES A DAY ORAL 10/17/19 21:45 01/15/20 21:44 10/19/19 09:03 Furosemide (Lasix) 40 mg BID ORAL 10/17/19 09:00 11/16/19 08:59 10/19/19 09:02 Heparin Sodium (Porcine) (Heparin 5000 units/ml) 5,000 units EVERY 12 HOURS SUBQ 10/12/19 09:00 11/26/19 08:59 Lisinopril (ZestriL) 5 mg DAILY ORAL 10/15/19 09:00 11/11/19 08:59 10/19/19 09:01 Metolazone (Zaroxolyn) 5 mg DAILY ORAL 10/18/19 09:00 11/17/19 08:59 10/19/19 09:02 Ondansetron HCl (Zofran) 4 mg Q6H PRN IVP Nausea & Vomiting 10/11/19 21:00 11/10/19 20:59 Pantoprazole (Protonix) 40 mg EVERY 12 HOURS ORAL 10/14/19 13:15 11/13/19 13:14 10/19/19 09:02 Polyethylene Glycol (Miralax) 17 gm DAILYPRN PRN ORAL Constipation 10/11/19 21:00 11/10/19 20:59 Assessment/Plan Problems: (1) Acute on chronic congestive heart failure (2) COPD (chronic obstructive pulmonary disease) (3) Atrial fibrillation, chronic (4) Normocytic anemia (5) Acute on chronic renal insufficiency (6) Thrombocytopenia (7) Pulmonary HTN (8) HTN (hypertension) Assessment/Plan still c/o shortness of breath cxr reviewed: hazy parenchymal disease versus superimposed pleural fluid on the right intake and output balance is - 8 litters still short of breath respiratory treatment Echo showing EF 10-15% titrate fio2 to sat of 92% venous doppler to rule out DVT on Epixiban Palak Mccray MD October 19, 2019 13:58
[2019-10-19 16:00] VITALS: BP 126/72
--- NOTE | 2019-10-19 18:15 | Cardiology Progress Note ---
Assessment/Plan Assessment/Plan 1. Chronic systolic heart failure. 2. No evidence of coronary artery disease by cardiac catheterization at [facility] in 2018. 3. Atrial flutter with 2:1 block. 4. Chronic recurrent chest pains with multiple hospitalizations at [facility] as well as [facility] as well as [facility], at least the ones known of. 5. Nonsustained ventricular tachycardia. 6. History of hypertension. 7. Prediabetes. 8. History of renal insufficiency. 9. Anemia. 10. Chronic schizophrenia. 11. Reported history of Munchausen syndrome. 12. Reported history of malingering. 13. Homelessness. he has been responding to the diuretics but no long has iv acces and refused iv per rn so i swtrich to po lasix with metolazone in am bp seems fine is on on gdmt tele personally reviewed atrial flutter / tachy with 2:1 block some nsvt he is able to walk to the br plt better keep on present diuretic dose as outpt may need metolazoen at leat 3 day per week may even need dialy weigh not avialabe Subjective Cardiovascular: Reports: chest pain, lightheadedness Respiratory: Reports: shortness of breath, SOB at rest; Denies: cough Gastrointestinal/Abdominal: Denies: constipated, diarrhea, vomiting Genitourinary: Denies: burning Subjective i persoanlly talked with pt over the phone RN offered multiple times through out the shift to change bed linens, patient declined stated he wants it to be changed after breakfast. PMH Systolic CHF, acute on chronic (HCC) Chest pain Abnormal EKG Cardiomyopathy (HCC) NSVT (nonsustained ventricular tachycardia) ([facility]) Chronic venous stasis dermatitis of both lower extremities HTN (hypertension) Acute on chronic congestive heart failure (HCC) Elevated brain natriuretic peptide (BNP) level Acute exacerbation of CHF (congestive heart failure) (HCC) Endocrine/Metabolic Graves disease Thyrotoxicosis Prediabetes Gastrointestinal and Abdominal Acute pancreatitis Genitourinary and Reproductive Renal insufficiency Acute kidney injury (HCC) Hyperkalemia Hematology and Neoplasia Anemia Infectious Diseases Cellulitis of lower extremity Mental Health Chronic schizophrenia (HCC) Munchausen's syndrome Paranoid schizophrenia (HCC) Adjustment disorder with depressed mood Pulmonary and Pneumonias Acute on chronic respiratory failure with hypercapnia Symptoms and Signs Edema extremities Exertional dyspnea Leg swelling Tobacco Smoker Other Homelessness Malingering Objective Last 24 Hour Vital Signs Date Time Temp Pulse Resp B/P (MAP) Pulse Ox O2 Delivery O2 Flow Rate FiO2 10/19/19 17:22 105 20 100 Nasal Cannula 4.0 36 105 20 98 10/19/19 16:00 102 10/19/19 16:00 96.4 103 20 126/72 (90) 97 10/19/19 12:10 109 10/19/19 11:58 97.9 88 20 112/77 (89) 98 10/19/19 09:02 105 120/91 10/19/19 09:01 120/91 10/19/19 09:00 Nasal Cannula 6.0 10/19/19 08:33 105 20 100 Nasal Cannula 4.0 36 101 20 98 10/19/19 08:00 96.6 106 20 126/70 (88) 100 10/19/19 08:00 120 10/19/19 07:00 101 20 98 Nasal Cannula 4.0 36 10/19/19 07:00 98 Nasal Cannula 4.0 36 10/19/19 04:15 97.4 87 20 120/91 (101) 99 10/19/19 04:00 110 10/19/19 01:12 104 21 100 Nasal Cannula 4.0 36 106 21 98 10/19/19 00:49 98.5 10/19/19 00:00 98.5 110 20 126/90 (102) 98 10/19/19 00:00 111 10/18/19 21:24 Nasal Cannula 2.0 Nasal Cannula 4.0 Nasal Cannula 4.0 10/18/19 21:01 87 128/86 10/18/19 20:00 110 10/18/19 20:00 97.7 81 20 126/88 (101) 98 10/18/19 19:29 101 22 96 Nasal Cannula 4.0 36 10/18/19 19:29 97 Nasal Cannula 4.0 36 Intake and Output 10/18/19 10/19/19 19:00 07:00 Intake Total 830 ml Output Total 1300 ml Balance -470 ml Intake Oral 830 ml Output Urine Total 1300 ml # Voids 4 Laboratory Tests Test 10/19/19 05:55 10/19/19 05:57 Phosphorus Level 3.8 MG/DL (2.5-4.9) Magnesium Level 2.0 MG/DL (1.8-2.4) Total Bilirubin 0.8 MG/DL (0.2-1.0) Direct Bilirubin 0.3 MG/DL (0.0-0.3) Aspartate Amino Transf (AST/SGOT) 41 U/L (15-37) H Alanine Aminotransferase (ALT/SGPT) 18 U/L (12-78) Alkaline Phosphatase 90 U/L (46-116) Total Protein 7.4 G/DL (6.4-8.2) Albumin 3.6 G/DL (3.4-5.0) White Blood Count 5.7 K/UL (4.8-10.8) Red Blood Count 3.47 M/UL (4.70-6.10) L Hemoglobin 10.7 G/DL (14.2-18.0) L Hematocrit 33.1 % (42.0-52.0) L Mean Corpuscular Volume 95 FL (80-99) Mean Corpuscular Hemoglobin 30.7 PG (27.0-31.0) Mean Corpuscular Hemoglobin Concent 32.2 G/DL (32.0-36.0) Red Cell Distribution Width 15.6 % (11.6-14.8) H Platelet Count 93 K/UL (150-450) L Mean Platelet Volume 8.6 FL (6.5-10.1) Neutrophils (%) (Auto) % (45.0-75.0) Lymphocytes (%) (Auto) % (20.0-45.0) Monocytes (%) (Auto) % (1.0-10.0) Eosinophils (%) (Auto) % (0.0-3.0) Basophils (%) (Auto) % (0.0-2.0) Differential Total Cells Counted 100 Neutrophils % (Manual) 62 % (45-75) Lymphocytes % (Manual) 24 % (20-45) Monocytes % (Manual) 8 % (1-10) Eosinophils % (Manual) 6 % (0-3) H Basophils % (Manual) 0 % (0-2) Band Neutrophils 0 % (0-8) Platelet Estimate Decreased L Platelet Morphology Normal Sodium Level 136 MMOL/L (136-145) Potassium Level 4.2 MMOL/L (3.5-5.1) Chloride Level 98 MMOL/L (98-107) Carbon Dioxide Level 30 MMOL/L (21-32) Anion Gap 8 mmol/L (5-15) Blood Urea Nitrogen 26 mg/dL (7-18) H Creatinine 1.4 MG/DL (0.55-1.30) H Estimat Glomerular Filtration Rate > 60 mL/min (>60) Glucose Level 102 MG/DL (74-106) Calcium Level 8.3 MG/DL (8.5-10.1) L Objective per dr biswas Respiratory: chest wall non-tender, rhonchi - left, rhonchi - right Cardiovascular: normal peripheral pulses, normal rate Abdomen: normal bowel sounds, soft, non tender Genitourinary: normal external genitalia Extremities: no cyanosis Tone Chapman MD October 19, 2019 18:15
--- NOTE | 2019-10-19 18:16 | Internal Med Progress Note ---
Subjective Physician Name Neftali Tinsley Attending Physician Neftali Tinsley MD Current Medications Medications (Trade) Dose Ordered Sig/Marybeth Route PRN Reason Start Time Stop Time Status Last Admin Dose Admin Acetaminophen (Tylenol) 650 mg Q4H PRN ORAL T>100.5 10/11/19 21:00 11/10/19 20:59 Albuterol/ Ipratropium (Albuterol/ Ipratropium) 3 ml Q4H PRN HHN Shortness of Breath 10/16/19 23:15 10/21/19 23:14 10/19/19 17:12 Allopurinol (Zyloprim) 200 mg DAILY ORAL 10/15/19 09:45 11/14/19 09:44 10/19/19 09:03 Apixaban (Eliquis) 5 mg BID ORAL 10/12/19 18:00 01/10/20 17:59 10/19/19 18:02 Carvedilol (Coreg) 6.25 mg EVERY 12 HOURS ORAL 10/11/19 21:00 11/10/19 20:59 10/19/19 09:02 Dextrose (Dextrose 50%) 25 ml Q30M PRN IV Hypoglycemia 10/11/19 21:00 01/09/20 20:59 Dextrose (Dextrose 50%) 50 ml Q30MIN PRN IV Hypoglycemia 10/11/19 21:00 01/09/20 20:59 Docusate Sodium (Colace) 100 mg THREE TIMES A DAY ORAL 10/14/19 18:00 11/13/19 17:59 10/19/19 18:02 Ferrous Sulfate (Feosol) 325 mg THREE TIMES A DAY ORAL 10/17/19 21:45 01/15/20 21:44 10/19/19 18:02 Furosemide (Lasix) 40 mg BID ORAL 10/17/19 09:00 11/16/19 08:59 10/19/19 18:02 Heparin Sodium (Porcine) (Heparin 5000 units/ml) 5,000 units EVERY 12 HOURS SUBQ 10/12/19 09:00 11/26/19 08:59 Lisinopril (ZestriL) 5 mg DAILY ORAL 10/15/19 09:00 11/11/19 08:59 10/19/19 09:01 Metolazone (Zaroxolyn) 5 mg DAILY ORAL 10/18/19 09:00 11/17/19 08:59 10/19/19 09:02 Ondansetron HCl (Zofran) 4 mg Q6H PRN IVP Nausea & Vomiting 10/11/19 21:00 11/10/19 20:59 Pantoprazole (Protonix) 40 mg EVERY 12 HOURS ORAL 10/14/19 13:15 11/13/19 13:14 10/19/19 09:02 Polyethylene Glycol (Miralax) 17 gm DAILYPRN PRN ORAL Constipation 10/11/19 21:00 11/10/19 20:59 Allergies: Coded Allergies: SIMVASTATIN (Verified Allergy, Unknown, 07/03/19) Uncoded Allergies: STATINS (Allergy, Unknown, 08/13/19) Subjective awake, alert, responsive, + SOB and CP, + leg edema, No N / V Objective Last Vital Signs Date Time Temp Pulse Resp B/P (MAP) Pulse Ox O2 Delivery O2 Flow Rate FiO2 10/19/19 17:22 105 20 100 Nasal Cannula 4.0 36 105 20 98 10/19/19 16:00 96.4 126/72 (90) Laboratory Tests Test 10/19/19 05:55 10/19/19 05:57 Phosphorus Level 3.8 MG/DL (2.5-4.9) Magnesium Level 2.0 MG/DL (1.8-2.4) Total Bilirubin 0.8 MG/DL (0.2-1.0) Direct Bilirubin 0.3 MG/DL (0.0-0.3) Aspartate Amino Transf (AST/SGOT) 41 U/L (15-37) H Alanine Aminotransferase (ALT/SGPT) 18 U/L (12-78) Alkaline Phosphatase 90 U/L (46-116) Total Protein 7.4 G/DL (6.4-8.2) Albumin 3.6 G/DL (3.4-5.0) White Blood Count 5.7 K/UL (4.8-10.8) Red Blood Count 3.47 M/UL (4.70-6.10) L Hemoglobin 10.7 G/DL (14.2-18.0) L Hematocrit 33.1 % (42.0-52.0) L Mean Corpuscular Volume 95 FL (80-99) Mean Corpuscular Hemoglobin 30.7 PG (27.0-31.0) Mean Corpuscular Hemoglobin Concent 32.2 G/DL (32.0-36.0) Red Cell Distribution Width 15.6 % (11.6-14.8) H Platelet Count 93 K/UL (150-450) L Mean Platelet Volume 8.6 FL (6.5-10.1) Neutrophils (%) (Auto) % (45.0-75.0) Lymphocytes (%) (Auto) % (20.0-45.0) Monocytes (%) (Auto) % (1.0-10.0) Eosinophils (%) (Auto) % (0.0-3.0) Basophils (%) (Auto) % (0.0-2.0) Differential Total Cells Counted 100 Neutrophils % (Manual) 62 % (45-75) Lymphocytes % (Manual) 24 % (20-45) Monocytes % (Manual) 8 % (1-10) Eosinophils % (Manual) 6 % (0-3) H Basophils % (Manual) 0 % (0-2) Band Neutrophils 0 % (0-8) Platelet Estimate Decreased L Platelet Morphology Normal Sodium Level 136 MMOL/L (136-145) Potassium Level 4.2 MMOL/L (3.5-5.1) Chloride Level 98 MMOL/L (98-107) Carbon Dioxide Level 30 MMOL/L (21-32) Anion Gap 8 mmol/L (5-15) Blood Urea Nitrogen 26 mg/dL (7-18) H Creatinine 1.4 MG/DL (0.55-1.30) H Estimat Glomerular Filtration Rate > 60 mL/min (>60) Glucose Level 102 MG/DL (74-106) Calcium Level 8.3 MG/DL (8.5-10.1) L Intake and Output 10/18/19 10/19/19 19:00 07:00 Intake Total 830 ml Output Total 1300 ml Balance -470 ml Intake Oral 830 ml Output Urine Total 1300 ml # Voids 4 Objective General: No acute distress, awake and alert HEENT: NCAT, sclera anicteric, PERRL, EOMI. Neck: Supple, no significant jugular venous distention, Lungs: Fair inspiratory effort, decrease air at bases, no Wheeze or Rales. Heart: Regular rate and rhythm, normal S1/S2, no murmurs Abdomen: soft, nontender, nondistended. Normoactive bowel sounds. / Rectal: Refused and deferred. Extremities: No Cyanosis , clubbing +2 Leg edema. Neuro: A&O x 3, Able to move all extremities Skin: warm, no rash. Psych: Normal mood and affect Assessment/Plan Assessment/Plan ASSESSMENT: 1. Acute CHF exacerbation on chronic with mild pulmonary edema and fluid overload. LVEF=10-15% 2. Hypertension. 3. Morbid obesity. 4. Atrial flutter. 5. History of paranoid schizophrenia and malingering. 6. History of Graves disease. 7. Prediabetic. 8. History of lower extremity chronic edema. 9. Anemia. 10. Chronic kidney disease. PLAN: 1. In monitored unit. 2. Dr. Tone Chapman = Cardiology consult 3. Dr. Mccray=Pulmonary Critical Care. 4. Lasix IV 40 mg twice a day. 5. Code status is Full Code. 6. DVT prophylaxis=Eliquis. Neftali Tinsley MD October 19, 2019 18:16
[2019-10-19 20:00] VITALS: BP 131/70
[2019-10-20] VITALS: BP 115/75
[2019-10-20] MEDS: Albuterol/Ipratropium 3ml neb HHN PRN ×3 (00:16→14:27)
[2019-10-20 04:00] VITALS: BP 131/72
--- NOTE | 2019-10-20 06:46 | Pulmonology Progress Note ---
Subjective ROS Limited/Unobtainable: No Allergies: Coded Allergies: SIMVASTATIN (Verified Allergy, Unknown, 07/03/19) Uncoded Allergies: STATINS (Allergy, Unknown, 08/13/19) Subjective on O2 4 L via NC, no signs of resp distress remains afebrile no CP in A flutter, rate overall controlled now on oral diuretics Lasix and Metolazone Objective Last 24 Hour Vital Signs Date Time Temp Pulse Resp B/P (MAP) Pulse Ox O2 Delivery O2 Flow Rate FiO2 10/20/19 04:00 97.6 108 20 131/72 (91) 97 10/20/19 04:00 111 10/20/19 00:16 89 20 100 Nasal Cannula 4.0 36 86 20 99 10/20/19 00:00 97.0 101 20 115/75 (88) 96 10/20/19 00:00 110 10/19/19 21:00 Nasal Cannula 6.0 10/19/19 20:53 78 131/70 10/19/19 20:16 89 20 100 Nasal Cannula 4.0 36 10/19/19 20:16 100 Nasal Cannula 4.0 36 10/19/19 20:00 110 10/19/19 20:00 97.0 78 20 131/70 (90) 100 10/19/19 17:22 105 20 100 Nasal Cannula 4.0 36 105 20 98 10/19/19 16:00 102 10/19/19 16:00 96.4 103 20 126/72 (90) 97 10/19/19 12:10 109 10/19/19 11:58 97.9 88 20 112/77 (89) 98 10/19/19 09:02 105 120/91 10/19/19 09:01 120/91 10/19/19 09:00 Nasal Cannula 6.0 10/19/19 08:33 105 20 100 Nasal Cannula 4.0 36 101 20 98 10/19/19 08:00 96.6 106 20 126/70 (88) 100 10/19/19 08:00 120 10/19/19 07:00 101 20 98 Nasal Cannula 4.0 36 10/19/19 07:00 98 Nasal Cannula 4.0 36 Intake and Output 10/19/19 10/20/19 19:00 07:00 Intake Total 1050 ml 720 ml Output Total 1050 ml 950 ml Balance 0 ml -230 ml Intake Oral 1050 ml 720 ml Output Urine Total 1050 ml 950 ml Objective General Appearance: AA male in NAD HEENT: normocephalic, atraumatic, anicteric, mucous membranes moist Respiratory: no respiratory distress, no accessory muscle use, decreased breath sounds Cardiovascular: normal rate Abdomen: normal bowel sounds, soft, non tender - obese Extremities: +1 edema BLE Neurologic: alert, oriented x 3, responsive, - no focal deficits, flat affect Musculoskeletal: normal muscle bulk Current Medications Medications (Trade) Dose Ordered Sig/Marybeth Route PRN Reason Start Time Stop Time Status Last Admin Dose Admin Acetaminophen (Tylenol) 650 mg Q4H PRN ORAL T>100.5 10/11/19 21:00 11/10/19 20:59 Albuterol/ Ipratropium (Albuterol/ Ipratropium) 3 ml Q4H PRN HHN Shortness of Breath 10/16/19 23:15 10/21/19 23:14 10/20/19 00:16 Allopurinol (Zyloprim) 200 mg DAILY ORAL 10/15/19 09:45 11/14/19 09:44 10/19/19 09:03 Apixaban (Eliquis) 5 mg BID ORAL 10/12/19 18:00 01/10/20 17:59 10/19/19 18:02 Carvedilol (Coreg) 6.25 mg EVERY 12 HOURS ORAL 10/11/19 21:00 11/10/19 20:59 10/19/19 20:53 Dextrose (Dextrose 50%) 25 ml Q30M PRN IV Hypoglycemia 10/11/19 21:00 01/09/20 20:59 Dextrose (Dextrose 50%) 50 ml Q30MIN PRN IV Hypoglycemia 10/11/19 21:00 01/09/20 20:59 Docusate Sodium (Colace) 100 mg THREE TIMES A DAY ORAL 10/14/19 18:00 11/13/19 17:59 10/19/19 18:02 Ferrous Sulfate (Feosol) 325 mg THREE TIMES A DAY ORAL 10/17/19 21:45 01/15/20 21:44 10/19/19 18:02 Furosemide (Lasix) 40 mg BID ORAL 10/17/19 09:00 11/16/19 08:59 10/19/19 18:02 Heparin Sodium (Porcine) (Heparin 5000 units/ml) 5,000 units EVERY 12 HOURS SUBQ 10/12/19 09:00 11/26/19 08:59 Lisinopril (ZestriL) 5 mg DAILY ORAL 10/15/19 09:00 11/11/19 08:59 10/19/19 09:01 Metolazone (Zaroxolyn) 5 mg DAILY ORAL 10/18/19 09:00 11/17/19 08:59 10/19/19 09:02 Ondansetron HCl (Zofran) 4 mg Q6H PRN IVP Nausea & Vomiting 10/11/19 21:00 11/10/19 20:59 Pantoprazole (Protonix) 40 mg EVERY 12 HOURS ORAL 10/14/19 13:15 11/13/19 13:14 10/19/19 20:53 Polyethylene Glycol (Miralax) 17 gm DAILYPRN PRN ORAL Constipation 10/11/19 21:00 11/10/19 20:59 Assessment/Plan Assessment/Plan ASSESSMENT Shortness of breath Acute on chronic systolic CHF Severe dilated cardiomyopathy with EF 10 to 15% COPD Moderate pulmonary hypertension Hypertension Anemia 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 Liver cirrhosis PLAN OF CARE tele diuresis with close monitoring of volumes and cardiorenal parameters O2, titrate to keep sat above 92% pulmonary toilet with HHN prior testing negative for COVID CXR 10/16 noted , stable, no changes fup CXR 10/11 no changes from initial DVT prophylaxis venous Duplex BLE no DVT Echo with EF 10 to 15% , mild to moderate mitral regurgitation and moderate pulmonary hypertension per cardio had DCM and last cath in 2017 no evidence of CAD beta blockage and a/coagulation with Eliquis guideline directed medical therapy for CHF with BB, THO and diuretic, monitor volumes pro BNP trending down responded well to diuresis, now no IV access, declined a new IV now on oral Lasix and metolazone serial troponin were all NGT BP management with BB, THO inhibitor , hydralazine and Lasix fup with cardio recs monitor renal parameters, correct lytes as needed , creat with no change abd US with mild hepatomegaly . Nodular contour of the liver suggestive of cirrhosis. Probable hepatic steatosis. Small amount of ascites. Mildly enlarged spleen . Nonspecific gallbladder wall thickening. may be related to underlying liver disease. monitor HH with goal to keep Hgb above 7,remains at baseline anemia w/up noted supportive care case discussed and evaluated by supervising physician Hattie Fox NP October 20, 2019 06:46
[2019-10-20 08:00] VITALS: BP 109/88
[2019-10-20] MEDS: Heparin 5000 units/ml inj SUBQ SCH ×2 (09:00→21:00)
[2019-10-20] MEDS: Eliquis 5mg tablet ORAL SCH ×2 (09:22→18:10)
[2019-10-20] MEDS: Carvedilol 6.25mg Tab ORAL SCH ×2 (09:22→21:08)
[2019-10-20] MEDS: Docusate 100mg cap ORAL SCH ×3 (09:22→18:10)
[2019-10-20] MEDS: Furosemide 40mg tab ORAL SCH ×2 (09:23→18:10)
[2019-10-20] MEDS: Allopurinol 100mg Tab ORAL SCH (09:23)
[2019-10-20] MEDS: Lisinopril 2.5mg tab ORAL SCH (09:23)
[2019-10-20 12:00] VITALS: BP 115/70
--- NOTE | 2019-10-20 13:20 | Cardiology Progress Note ---
Assessment/Plan Assessment/Plan 1. Chronic systolic heart failure. 2. No evidence of coronary artery disease by cardiac catheterization at [facility] in 2018. 3. Atrial flutter with 2:1 block. 4. Chronic recurrent chest pains with multiple hospitalizations at [facility] as well as [facility] as well as [facility], at least the ones known of. 5. Nonsustained ventricular tachycardia. 6. History of hypertension. 7. Prediabetes. 8. History of renal insufficiency. 9. Anemia. 10. Chronic schizophrenia. 11. Reported history of Munchausen syndrome. 12. Reported history of malingering. 13. Homelessness. bp seems fine is on on gdmt tele personally reviewed atrial flutter / tachy with 2:1 block no vt keep on present diuretic dose as outpt may need metolazoen at leat 3 day per week may even need dialy weigh not available Subjective Subjective per rn PATIENT SITTING UP IN BED, AAOX4, VERBALLY RESPONSIVE AND ABLE TO MAKE NEEDS KNOWN. NO COMPLAINTS OF PAIN OR DISCOMFORT AT THIS TIME. BREATHING IS EVEN AND UNLABORED ON 4L NC, NO S/SX OF DISTRESS. PMH Systolic CHF, acute on chronic (HCC) Chest pain Abnormal EKG Cardiomyopathy (HCC) NSVT (nonsustained ventricular tachycardia) (HCC) Chronic venous stasis dermatitis of both lower extremities HTN (hypertension) Acute on chronic congestive heart failure (HCC) Elevated brain natriuretic peptide (BNP) level Acute exacerbation of CHF (congestive heart failure) (HCC) Endocrine/Metabolic Graves disease Thyrotoxicosis Prediabetes Gastrointestinal and Abdominal Acute pancreatitis Genitourinary and Reproductive Renal insufficiency Acute kidney injury (HCC) Hyperkalemia Hematology and Neoplasia Anemia Infectious Diseases Cellulitis of lower extremity Mental Health Chronic schizophrenia (HCC) Munchausen's syndrome Paranoid schizophrenia (HCC) Adjustment disorder with depressed mood Pulmonary and Pneumonias Acute on chronic respiratory failure with hypercapnia Symptoms and Signs Edema extremities Exertional dyspnea Leg swelling Tobacco Smoker Other Homelessness Malingering Objective Last 24 Hour Vital Signs Date Time Temp Pulse Resp B/P (MAP) Pulse Ox O2 Delivery O2 Flow Rate FiO2 10/20/19 09:23 109/88 10/20/19 09:22 85 109/88 10/20/19 08:53 Nasal Cannula 6.0 10/20/19 08:05 85 20 98 Nasal Cannula 4.0 36 10/20/19 08:05 98 Nasal Cannula 4.0 36 10/20/19 08:05 87 18 100 Nasal Cannula 4.0 36 85 18 98 10/20/19 08:00 99.5 109 20 109/88 (95) 96 10/20/19 08:00 108 10/20/19 04:00 97.6 108 20 131/72 (91) 97 10/20/19 04:00 111 10/20/19 00:16 89 20 100 Nasal Cannula 4.0 36 86 20 99 10/20/19 00:00 97.0 101 20 115/75 (88) 96 10/20/19 00:00 110 10/19/19 21:00 Nasal Cannula 6.0 10/19/19 20:53 78 131/70 10/19/19 20:16 89 20 100 Nasal Cannula 4.0 36 10/19/19 20:16 100 Nasal Cannula 4.0 36 10/19/19 20:00 110 10/19/19 20:00 97.0 78 20 131/70 (90) 100 10/19/19 17:22 105 20 100 Nasal Cannula 4.0 36 105 20 98 10/19/19 16:00 102 10/19/19 16:00 96.4 103 20 126/72 (90) 97 Intake and Output 10/19/19 10/20/19 18:59 06:59 Intake Total 1050 ml 720 ml Output Total 1050 ml 950 ml Balance 0 ml -230 ml Intake Oral 1050 ml 720 ml Output Urine Total 1050 ml 950 ml Objective per pulm PA Respiratory: no respiratory distress, no accessory muscle use, decreased breath sounds Cardiovascular: normal rate Abdomen: normal bowel sounds, soft, non tender - obese Extremities: +1 edema BLE Tone Chapman MD October 20, 2019 13:20
--- NOTE | 2019-10-20 13:37 | Internal Med Progress Note ---
Subjective Date of Service: October 20, 2019 Physician Name BebaYousif Attending Physician Neftali Tinsley MD Current Medications Medications (Trade) Dose Ordered Sig/Marybeth Route PRN Reason Start Time Stop Time Status Last Admin Dose Admin Acetaminophen (Tylenol) 650 mg Q4H PRN ORAL T>100.5 10/11/19 21:00 11/10/19 20:59 Albuterol/ Ipratropium (Albuterol/ Ipratropium) 3 ml Q4H PRN HHN Shortness of Breath 10/20/19 07:15 10/25/19 07:14 10/20/19 08:01 Allopurinol (Zyloprim) 200 mg DAILY ORAL 10/15/19 09:45 11/14/19 09:44 10/20/19 09:23 Apixaban (Eliquis) 5 mg BID ORAL 10/12/19 18:00 01/10/20 17:59 10/20/19 09:22 Carvedilol (Coreg) 6.25 mg EVERY 12 HOURS ORAL 10/11/19 21:00 11/10/19 20:59 10/20/19 09:22 Dextrose (Dextrose 50%) 25 ml Q30M PRN IV Hypoglycemia 10/11/19 21:00 01/09/20 20:59 Dextrose (Dextrose 50%) 50 ml Q30MIN PRN IV Hypoglycemia 10/11/19 21:00 01/09/20 20:59 Docusate Sodium (Colace) 100 mg THREE TIMES A DAY ORAL 10/14/19 18:00 11/13/19 17:59 10/20/19 13:13 Ferrous Sulfate (Feosol) 325 mg THREE TIMES A DAY ORAL 10/17/19 21:45 01/15/20 21:44 10/20/19 13:13 Furosemide (Lasix) 40 mg BID ORAL 10/17/19 09:00 11/16/19 08:59 10/20/19 09:23 Heparin Sodium (Porcine) (Heparin 5000 units/ml) 5,000 units EVERY 12 HOURS SUBQ 10/12/19 09:00 11/26/19 08:59 Lisinopril (ZestriL) 5 mg DAILY ORAL 10/15/19 09:00 11/11/19 08:59 10/20/19 09:23 Metolazone (Zaroxolyn) 5 mg DAILY ORAL 10/18/19 09:00 11/17/19 08:59 10/20/19 09:23 Ondansetron HCl (Zofran) 4 mg Q6H PRN IVP Nausea & Vomiting 10/11/19 21:00 11/10/19 20:59 Pantoprazole (Protonix) 40 mg EVERY 12 HOURS ORAL 10/14/19 13:15 11/13/19 13:14 10/20/19 09:23 Polyethylene Glycol (Miralax) 17 gm DAILYPRN PRN ORAL Constipation 10/11/19 21:00 11/10/19 20:59 Allergies: Coded Allergies: SIMVASTATIN (Verified Allergy, Unknown, 07/03/19) Uncoded Allergies: STATINS (Allergy, Unknown, 08/13/19) ROS Limited/Unobtainable: No Constitutional: Reports: no symptoms HEENT: Reports: no symptoms Cardiovascular: Reports: no symptoms Respiratory: Reports: shortness of breath Gastrointestinal/Abdominal: Reports: no symptoms Genitourinary: Reports: no symptoms Neurologic/Psychiatric: Reports: no symptoms Subjective 54 YO M admitted with shortness of breath. Now Acute on chronic congestive heart failure. Cover for Int Med-Dr Tinsley. Continues to C/O Shortness of breath Objective Last Vital Signs Date Time Temp Pulse Resp B/P (MAP) Pulse Ox O2 Delivery O2 Flow Rate FiO2 10/20/19 09:23 109/88 10/20/19 09:22 85 10/20/19 08:53 Nasal Cannula 6.0 10/20/19 08:05 20 98 36 10/20/19 08:00 99.5 Intake and Output 10/19/19 10/20/19 19:00 07:00 Intake Total 1050 ml 720 ml Output Total 1050 ml 950 ml Balance 0 ml -230 ml Intake Oral 1050 ml 720 ml Output Urine Total 1050 ml 950 ml Objective PHYSICAL EXAMINATION: GENERAL: Patient is awake and responsive. No acute distress. HEAD AND NECK: Pupils are equal and reactive to light. Extraocular movements are intact. Neck was supple. Positive JVD. LUNGS: Good air entry. Decreased air in bases. No wheezing or rhonchi. HEART: S1, S2. Tachycardic. Distant heart sounds. No murmur or gallops. ABDOMEN: Soft, nondistended, nontender. Positive bowel sounds. Morbidly obese. GENITOURINARY: Noted scrotal edema. No tenderness. No erythema. EXTREMITIES: No cyanosis or clubbing. +2 edema bilateral lower extremity with hyperpigmentation around both lower extremities. NEUROLOGIC: Cranial nerves II through XII grossly intact. Motor is 5/5 in all extremities. Gait was not assessed due to patient's status. RECTAL: Exam refused and deferred. PSYCHIATRIC: Mood and affect is calm and relaxed at this time, but he has history of schizophrenia. Assessment/Plan Assessment/Plan ASSESSMENT: 1. Acute CHF exacerbation on chronic with mild pulmonary edema and fluid overload. LVEF=10-15% 2. Hypertension. 3. Morbid obesity. 4. Atrial flutter. 5. History of paranoid schizophrenia and malingering. 6. History of Graves disease. 7. Prediabetic. 8. History of lower extremity chronic edema. 9. Anemia. 10. Chronic kidney disease. PLAN: 1. Admit patient to monitored unit. 2. Dr. Tone Chapman = Cardiology consult 3. Dr. Mccray=Pulmonary Critical Care. 4. Lasix IV 40 mg twice a day. 5. Code status is Full Code. 6. DVT prophylaxis=Eliquis. Yousif Yoder MD October 20, 2019 13:37
--- NOTE | 2019-10-20 14:57 | Nephrology Progress Note ---
Assessment/Plan Problem List: (1) Acute on chronic renal insufficiency Assessment: Creatinine lowering (2) Anemia Assessment: Appears to be iron deficiency (3) Pulmonary HTN Assessment Renal failure most likely secondary to cardiomyopathy and cardiorenal syndrome Acute CHF exacerbation on chronic with mild pulmonary edema and fluid overload Severe dilated cardiomyopathy with EF 10 to 15% COPD Moderate pulmonary hypertension Hypertension Anemia , iron panel suggestive of iron deficiency anemia Schizophrenia with hx of diagnosed Munchausen syndrome and malingering Liver cirrhosis, splenomegaly, thrombocytopenia Plan Status quo-serum creatinine stable 1.4 Intravenous iron Optimize cardiac status, per glass science engineer's advice Watch and monitor renal parameters Previously Avoid nephrotoxic's check CEA level, check stool for OB Afterload reduction and parameters for blood pressure medications Per orders Subjective ROS Limited/Unobtainable: No Constitutional: Reports: malaise Objective Objective Last 24 Hour Vital Signs Date Time Temp Pulse Resp B/P (MAP) Pulse Ox O2 Delivery O2 Flow Rate FiO2 10/20/19 14:31 96 18 100 Nasal Cannula 4.0 36 94 18 97 10/20/19 12:00 112 10/20/19 12:00 97.1 101 20 115/70 (85) 100 10/20/19 09:23 109/88 10/20/19 09:22 85 109/88 10/20/19 08:53 Nasal Cannula 6.0 10/20/19 08:05 85 20 98 Nasal Cannula 4.0 36 10/20/19 08:05 98 Nasal Cannula 4.0 36 10/20/19 08:05 87 18 100 Nasal Cannula 4.0 36 85 18 98 10/20/19 08:00 99.5 109 20 109/88 (95) 96 10/20/19 08:00 108 10/20/19 04:00 97.6 108 20 131/72 (91) 97 10/20/19 04:00 111 10/20/19 00:16 89 20 100 Nasal Cannula 4.0 36 86 20 99 10/20/19 00:00 97.0 101 20 115/75 (88) 96 10/20/19 00:00 110 10/19/19 21:00 Nasal Cannula 6.0 10/19/19 20:53 78 131/70 10/19/19 20:16 89 20 100 Nasal Cannula 4.0 36 10/19/19 20:16 100 Nasal Cannula 4.0 36 10/19/19 20:00 110 10/19/19 20:00 97.0 78 20 131/70 (90) 100 10/19/19 17:22 105 20 100 Nasal Cannula 4.0 36 105 20 98 10/19/19 16:00 102 10/19/19 16:00 96.4 103 20 126/72 (90) 97 Intake and Output 10/19/19 10/20/19 19:00 07:00 Intake Total 1050 ml 720 ml Output Total 1050 ml 950 ml Balance 0 ml -230 ml Intake Oral 1050 ml 720 ml Output Urine Total 1050 ml 950 ml No blood work done today Height (Feet): 5 Height (Inches): 6.00 Weight (Pounds): 208 Cardiovascular: tachycardia Respiratory/Chest: decreased breath sounds Abdomen: distended Scout Cody MD October 20, 2019 14:57
[2019-10-20 16:00] VITALS: BP 122/70
[2019-10-20 20:00] VITALS: BP 123/90
[2019-10-21] VITALS: BP 120/93
[2019-10-21 04:00] VITALS: BP 125/83
[2019-10-21 06:58] LABS: BASOPHILS % (AUTO) 1.6 % (0.0-2.0); EOSINOPHILS % (AUTO) 0.9 % (0.0-3.0); HEMATOCRIT 32.1 % (42.0-52.0); HEMOGLOBIN 10.5 G/DL (14.2-18.0); LYMPHOCYTES % (AUTO) 12.2 % (20.0-45.0); MEAN CORPUSCULAR VOLUME 95 FL (80-99); MONOCYTES % (AUTO) 14.1 % (1.0-10.0); NEUTROPHILS % (AUTO) 71.1 % (45.0-75.0); PLATELET COUNT 108 K/UL (150-450); RED BLOOD COUNT 3.37 M/UL (4.70-6.10); RED CELL DISTRIBUTION WIDTH 15.6 % (11.6-14.8); WHITE BLOOD COUNT 7.3 K/UL (4.8-10.8)
--- NOTE | 2019-10-21 07:19 | Pulmonology Progress Note ---
Subjective ROS Limited/Unobtainable: No Allergies: Coded Allergies: SIMVASTATIN (Verified Allergy, Unknown, 07/03/19) Uncoded Allergies: STATINS (Allergy, Unknown, 08/13/19) Subjective on O2 4 L via NC, no signs of resp distress remains afebrile no CP in A flutter, rate overall controlled now on oral diuretics Lasix and Metolazone Objective Last 24 Hour Vital Signs Date Time Temp Pulse Resp B/P (MAP) Pulse Ox O2 Delivery O2 Flow Rate FiO2 10/21/19 04:00 97.9 105 19 125/83 (97) 100 10/21/19 04:00 123 10/21/19 03:06 Nasal Cannula 4.0 10/21/19 00:00 110 10/21/19 00:00 98.0 120 20 120/93 (102) 98 10/20/19 21:08 107 123/90 10/20/19 21:00 Nasal Cannula 4.0 10/20/19 20:00 97.5 107 20 123/90 (101) 99 10/20/19 20:00 115 10/20/19 19:36 98 Nasal Cannula 4.0 36 10/20/19 19:35 84 20 98 Nasal Cannula 4.0 36 10/20/19 16:00 111 10/20/19 16:00 97.5 111 20 122/70 (87) 95 10/20/19 14:31 96 18 100 Nasal Cannula 4.0 36 94 18 97 10/20/19 12:00 112 10/20/19 12:00 97.1 101 20 115/70 (85) 100 10/20/19 09:23 109/88 10/20/19 09:22 85 109/88 10/20/19 08:53 Nasal Cannula 6.0 10/20/19 08:05 85 20 98 Nasal Cannula 4.0 36 10/20/19 08:05 98 Nasal Cannula 4.0 36 10/20/19 08:05 87 18 100 Nasal Cannula 4.0 36 85 18 98 10/20/19 08:00 99.5 109 20 109/88 (95) 96 10/20/19 08:00 108 Intake and Output 10/20/19 10/21/19 19:00 07:00 Intake Total 1200 ml 120 ml Output Total 900 ml 500 ml Balance 300 ml -380 ml Intake Oral 1200 ml 120 ml Output Urine Total 900 ml 500 ml # Bowel Movements 1 Objective General Appearance: AA male in NAD HEENT: normocephalic, atraumatic, anicteric, mucous membranes moist Respiratory: no respiratory distress, no accessory muscle use, decreased breath sounds Cardiovascular: normal rate Abdomen: normal bowel sounds, soft, non tender - obese Extremities: +1 edema BLE Neurologic: alert, oriented x 3, responsive, - no focal deficits, flat affect Musculoskeletal: normal muscle bulk Laboratory Tests 10/21/19 05:50: White Blood Count 7.3, Red Blood Count 3.37L, Hemoglobin 10.5L, Hematocrit 32.1L , Mean Corpuscular Volume 95, Mean Corpuscular Hemoglobin 31.3H, Mean Corpuscular Hemoglobin Concent 32.8, Red Cell Distribution Width 15.6H, Platelet Count 108L, Mean Platelet Volume 7.5, Neutrophils (%) (Auto) 71.1, Lymphocytes (%) (Auto) 12.2L, Monocytes (%) (Auto) 14.1H, Eosinophils (%) (Auto ) 0.9, Basophils (%) (Auto) 1.6, Sodium Level [Pending], Potassium Level [ Pending], Chloride Level [Pending], Carbon Dioxide Level [Pending], Blood Urea Nitrogen [Pending], Creatinine [Pending], Estimat Glomerular Filtration Rate [ Pending], Glucose Level [Pending], Calcium Level [Pending] Current Medications Medications (Trade) Dose Ordered Sig/Marybeth Route PRN Reason Start Time Stop Time Status Last Admin Dose Admin Acetaminophen (Tylenol) 650 mg Q4H PRN ORAL T>100.5 10/11/19 21:00 11/10/19 20:59 Albuterol/ Ipratropium (Albuterol/ Ipratropium) 3 ml Q4H PRN HHN Shortness of Breath 10/20/19 07:15 10/25/19 07:14 10/20/19 14:27 Allopurinol (Zyloprim) 200 mg DAILY ORAL 10/15/19 09:45 11/14/19 09:44 10/20/19 09:23 Apixaban (Eliquis) 5 mg BID ORAL 10/12/19 18:00 01/10/20 17:59 10/20/19 18:10 Carvedilol (Coreg) 6.25 mg EVERY 12 HOURS ORAL 10/11/19 21:00 11/10/19 20:59 10/20/19 21:08 Dextrose (Dextrose 50%) 25 ml Q30M PRN IV Hypoglycemia 10/11/19 21:00 01/09/20 20:59 Dextrose (Dextrose 50%) 50 ml Q30MIN PRN IV Hypoglycemia 10/11/19 21:00 01/09/20 20:59 Docusate Sodium (Colace) 100 mg THREE TIMES A DAY ORAL 10/14/19 18:00 11/13/19 17:59 10/20/19 18:10 Ferrous Sulfate (Feosol) 325 mg THREE TIMES A DAY ORAL 10/17/19 21:45 01/15/20 21:44 10/20/19 18:10 Furosemide (Lasix) 40 mg BID ORAL 10/17/19 09:00 11/16/19 08:59 10/20/19 18:10 Heparin Sodium (Porcine) (Heparin 5000 units/ml) 5,000 units EVERY 12 HOURS SUBQ 10/12/19 09:00 11/26/19 08:59 Lisinopril (ZestriL) 5 mg DAILY ORAL 10/15/19 09:00 11/11/19 08:59 10/20/19 09:23 Metolazone (Zaroxolyn) 5 mg DAILY ORAL 10/18/19 09:00 11/17/19 08:59 10/20/19 09:23 Ondansetron HCl (Zofran) 4 mg Q6H PRN IVP Nausea & Vomiting 10/11/19 21:00 11/10/19 20:59 Pantoprazole (Protonix) 40 mg EVERY 12 HOURS ORAL 10/14/19 13:15 11/13/19 13:14 10/20/19 21:07 Polyethylene Glycol (Miralax) 17 gm DAILYPRN PRN ORAL Constipation 10/11/19 21:00 11/10/19 20:59 Assessment/Plan Assessment/Plan ASSESSMENT Shortness of breath Acute on chronic systolic CHF Severe dilated cardiomyopathy with EF 10 to 15% COPD Moderate pulmonary hypertension Hypertension Anemia 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 Liver cirrhosis PLAN OF CARE tele diuresis with close monitoring of volumes and cardiorenal parameters O2, titrate to keep sat above 92% pulmonary toilet with HHN prior testing negative for COVID CXR 10/16 noted , stable, no changes fup CXR 10/11 no changes from initial DVT prophylaxis venous Duplex BLE no DVT Echo with EF 10 to 15% , mild to moderate mitral regurgitation and moderate pulmonary hypertension per cardio had DCM and last cath in 2017 no evidence of CAD beta blockage and a/coagulation with Eliquis guideline directed medical therapy for CHF with BB, THO and diuretic, monitor volumes pro BNP trending down responded well to diuresis, now no IV access, declined a new IV now on oral Lasix and metolazone serial troponin were all NGT BP management with BB, THO inhibitor , hydralazine and Lasix fup with cardio recs monitor renal parameters, correct lytes as needed , creat with no change abd US with mild hepatomegaly . Nodular contour of the liver suggestive of cirrhosis. Probable hepatic steatosis. Small amount of ascites. Mildly enlarged spleen . Nonspecific gallbladder wall thickening. may be related to underlying liver disease. monitor HH with goal to keep Hgb above 7,remains at baseline anemia w/up noted supportive care case discussed and evaluated by supervising physician Hattie Fox NP October 21, 2019 07:19
[2019-10-21] MEDS: Albuterol/Ipratropium 3ml neb HHN PRN ×3 (07:49→23:19)
[2019-10-21 07:57] LABS: ANION GAP 7 mmol/L (5-15); BLOOD UREA NITROGEN 25 mg/dL (7-18); CALCIUM 8.2 MG/DL (8.5-10.1); CARBON DIOXIDE 31 MMOL/L (21-32); CHLORIDE 98 MMOL/L (98-107); CREATININE 1.5 MG/DL (0.55-1.30); POTASSIUM 4.5 MMOL/L (3.5-5.1); SODIUM 136 MMOL/L (136-145)
[2019-10-21 07:58] VITALS: BP 111/79
[2019-10-21] MEDS: Carvedilol 6.25mg Tab ORAL SCH ×2 (08:57→21:13)
[2019-10-21] MEDS: Docusate 100mg cap ORAL SCH ×3 (08:57→17:07)
[2019-10-21] MEDS: Allopurinol 100mg Tab ORAL SCH (08:58)
[2019-10-21] MEDS: Furosemide 40mg tab ORAL SCH ×2 (08:58→17:08)
[2019-10-21] MEDS: Heparin 5000 units/ml inj SUBQ SCH ×3 (08:58→21:15)
[2019-10-21] MEDS: Eliquis 5mg tablet ORAL SCH ×2 (08:58→17:08)
[2019-10-21] MEDS: Lisinopril 2.5mg tab ORAL SCH (08:58)
--- NOTE | 2019-10-21 10:22 | Nephrology Progress Note ---
Assessment/Plan Problem List: (1) Acute on chronic renal insufficiency Assessment: Creatinine lowering (2) Anemia Assessment: Appears to be iron deficiency (3) Pulmonary HTN Assessment Renal failure most likely secondary to cardiomyopathy and cardiorenal syndrome Acute CHF exacerbation on chronic with mild pulmonary edema and fluid overload Severe dilated cardiomyopathy with EF 10 to 15% COPD Moderate pulmonary hypertension Hypertension Anemia , iron panel suggestive of iron deficiency anemia Schizophrenia with hx of diagnosed Munchausen syndrome and malingering Liver cirrhosis, splenomegaly, thrombocytopenia Plan Status quo-serum creatinine stable 1.5 today Intravenous iron Optimize cardiac status, per vegetable tester's advice Watch and monitor renal parameters Previously Avoid nephrotoxic's check CEA level, check stool for OB Afterload reduction and parameters for blood pressure medications Per orders Subjective ROS Limited/Unobtainable: No Constitutional: Reports: malaise Objective Objective Last 24 Hour Vital Signs Date Time Temp Pulse Resp B/P (MAP) Pulse Ox O2 Delivery O2 Flow Rate FiO2 10/21/19 08:58 111/79 10/21/19 08:57 111 111/79 10/21/19 08:25 Nasal Cannula 6.0 10/21/19 08:02 111 10/21/19 08:01 110 24 98 Nasal Cannula 4.0 36 108 26 97 10/21/19 08:01 97 Nasal Cannula 4.0 36 10/21/19 07:58 97.6 110 18 111/79 (90) 100 10/21/19 07:50 108 26 97 Nasal Cannula 4.0 36 10/21/19 04:00 97.9 105 19 125/83 (97) 100 10/21/19 04:00 123 10/21/19 03:06 Nasal Cannula 4.0 10/21/19 00:00 110 10/21/19 00:00 98.0 120 20 120/93 (102) 98 10/20/19 21:08 107 123/90 10/20/19 21:00 Nasal Cannula 4.0 10/20/19 20:00 97.5 107 20 123/90 (101) 99 10/20/19 20:00 115 10/20/19 19:36 98 Nasal Cannula 4.0 36 10/20/19 19:35 84 20 98 Nasal Cannula 4.0 36 10/20/19 16:00 111 10/20/19 16:00 97.5 111 20 122/70 (87) 95 10/20/19 14:31 96 18 100 Nasal Cannula 4.0 36 94 18 97 10/20/19 12:00 112 10/20/19 12:00 97.1 101 20 115/70 (85) 100 Intake and Output 10/20/19 10/21/19 19:00 07:00 Intake Total 1200 ml 120 ml Output Total 900 ml 500 ml Balance 300 ml -380 ml Intake Oral 1200 ml 120 ml Output Urine Total 900 ml 500 ml # Bowel Movements 1 Laboratory Tests 10/21/19 05:50: White Blood Count 7.3, Red Blood Count 3.37L, Hemoglobin 10.5L, Hematocrit 32.1L , Mean Corpuscular Volume 95, Mean Corpuscular Hemoglobin 31.3H, Mean Corpuscular Hemoglobin Concent 32.8, Red Cell Distribution Width 15.6H, Platelet Count 108L, Mean Platelet Volume 7.5, Neutrophils (%) (Auto) 71.1, Lymphocytes (%) (Auto) 12.2L, Monocytes (%) (Auto) 14.1H, Eosinophils (%) (Auto ) 0.9, Basophils (%) (Auto) 1.6, Sodium Level 136, Potassium Level 4.5, Chloride Level 98, Carbon Dioxide Level 31, Anion Gap 7, Blood Urea Nitrogen 25H , Creatinine 1.5H, Estimat Glomerular Filtration Rate 59.4, Glucose Level 103, Calcium Level 8.2L Height (Feet): 5 Height (Inches): 6.00 Weight (Pounds): 210 General Appearance: no apparent distress Cardiovascular: tachycardia Respiratory/Chest: decreased breath sounds Abdomen: distended Scout Cody MD October 21, 2019 10:22
[2019-10-21 12:00] VITALS: BP 112/84
--- NOTE | 2019-10-21 13:47 | Internal Med Progress Note ---
Subjective Date of Service: October 21, 2019 Physician Name YoderYousif Attending Physician Neftali Tinsley MD Current Medications Medications (Trade) Dose Ordered Sig/Marybeth Route PRN Reason Start Time Stop Time Status Last Admin Dose Admin Acetaminophen (Tylenol) 650 mg Q4H PRN ORAL T>100.5 10/11/19 21:00 11/10/19 20:59 Albuterol/ Ipratropium (Albuterol/ Ipratropium) 3 ml Q4H PRN HHN Shortness of Breath 10/20/19 07:15 10/25/19 07:14 10/21/19 07:49 Allopurinol (Zyloprim) 200 mg DAILY ORAL 10/15/19 09:45 11/14/19 09:44 10/21/19 08:58 Apixaban (Eliquis) 5 mg BID ORAL 10/12/19 18:00 01/10/20 17:59 10/21/19 08:58 Carvedilol (Coreg) 6.25 mg EVERY 12 HOURS ORAL 10/11/19 21:00 11/10/19 20:59 10/21/19 08:57 Dextrose (Dextrose 50%) 25 ml Q30M PRN IV Hypoglycemia 10/11/19 21:00 01/09/20 20:59 Dextrose (Dextrose 50%) 50 ml Q30MIN PRN IV Hypoglycemia 10/11/19 21:00 01/09/20 20:59 Docusate Sodium (Colace) 100 mg THREE TIMES A DAY ORAL 10/14/19 18:00 11/13/19 17:59 10/21/19 12:38 Ferrous Sulfate (Feosol) 325 mg THREE TIMES A DAY ORAL 10/17/19 21:45 01/15/20 21:44 10/21/19 12:38 Furosemide (Lasix) 40 mg BID ORAL 10/17/19 09:00 11/16/19 08:59 10/21/19 08:58 Heparin Sodium (Porcine) (Heparin 5000 units/ml) 5,000 units EVERY 12 HOURS SUBQ 10/12/19 09:00 11/26/19 08:59 Lisinopril (ZestriL) 5 mg DAILY ORAL 10/15/19 09:00 11/11/19 08:59 10/21/19 08:58 Metolazone (Zaroxolyn) 5 mg DAILY ORAL 10/18/19 09:00 11/17/19 08:59 10/21/19 08:58 Ondansetron HCl (Zofran) 4 mg Q6H PRN IVP Nausea & Vomiting 10/11/19 21:00 11/10/19 20:59 Pantoprazole (Protonix) 40 mg EVERY 12 HOURS ORAL 10/14/19 13:15 11/13/19 13:14 10/21/19 08:58 Polyethylene Glycol (Miralax) 17 gm DAILYPRN PRN ORAL Constipation 10/11/19 21:00 11/10/19 20:59 Allergies: Coded Allergies: SIMVASTATIN (Verified Allergy, Unknown, 07/03/19) Uncoded Allergies: STATINS (Allergy, Unknown, 08/13/19) ROS Limited/Unobtainable: No Constitutional: Reports: no symptoms HEENT: Reports: no symptoms Cardiovascular: Reports: no symptoms Respiratory: Reports: shortness of breath Gastrointestinal/Abdominal: Reports: no symptoms Genitourinary: Reports: no symptoms Neurologic/Psychiatric: Reports: no symptoms Subjective 54 YO M admitted with shortness of breath. Now Acute on chronic congestive heart failure. Cover for Int Med-Dr Tinsley. Continues to C/O Shortness of breath Objective Last Vital Signs Date Time Temp Pulse Resp B/P (MAP) Pulse Ox O2 Delivery O2 Flow Rate FiO2 10/21/19 12:00 97.9 109 20 112/84 (93) 100 10/21/19 08:25 Nasal Cannula 6.0 10/21/19 08:01 36 Laboratory Tests Test 10/21/19 05:50 White Blood Count 7.3 K/UL (4.8-10.8) Red Blood Count 3.37 M/UL (4.70-6.10) L Hemoglobin 10.5 G/DL (14.2-18.0) L Hematocrit 32.1 % (42.0-52.0) L Mean Corpuscular Volume 95 FL (80-99) Mean Corpuscular Hemoglobin 31.3 PG (27.0-31.0) H Mean Corpuscular Hemoglobin Concent 32.8 G/DL (32.0-36.0) Red Cell Distribution Width 15.6 % (11.6-14.8) H Platelet Count 108 K/UL (150-450) L Mean Platelet Volume 7.5 FL (6.5-10.1) Neutrophils (%) (Auto) 71.1 % (45.0-75.0) Lymphocytes (%) (Auto) 12.2 % (20.0-45.0) L Monocytes (%) (Auto) 14.1 % (1.0-10.0) H Eosinophils (%) (Auto) 0.9 % (0.0-3.0) Basophils (%) (Auto) 1.6 % (0.0-2.0) Sodium Level 136 MMOL/L (136-145) Potassium Level 4.5 MMOL/L (3.5-5.1) Chloride Level 98 MMOL/L (98-107) Carbon Dioxide Level 31 MMOL/L (21-32) Anion Gap 7 mmol/L (5-15) Blood Urea Nitrogen 25 mg/dL (7-18) H Creatinine 1.5 MG/DL (0.55-1.30) H Estimat Glomerular Filtration Rate 59.4 mL/min (>60) Glucose Level 103 MG/DL (74-106) Calcium Level 8.2 MG/DL (8.5-10.1) L Intake and Output 10/20/19 10/21/19 19:00 07:00 Intake Total 1200 ml 120 ml Output Total 900 ml 500 ml Balance 300 ml -380 ml Intake Oral 1200 ml 120 ml Output Urine Total 900 ml 500 ml # Bowel Movements 1 Objective PHYSICAL EXAMINATION: GENERAL: Patient is awake and responsive. No acute distress. HEAD AND NECK: Pupils are equal and reactive to light. Extraocular movements are intact. Neck was supple. Positive JVD. LUNGS: nasal canula@4 L O2Good air entry. Decreased air in bases. No wheezing or rhonchi. HEART: S1, S2. Tachycardic. Distant heart sounds. No murmur or gallops. ABDOMEN: Soft, nondistended, nontender. Positive bowel sounds. Morbidly obese. GENITOURINARY: Noted scrotal edema. No tenderness. No erythema. EXTREMITIES: No cyanosis or clubbing. +2 edema bilateral lower extremity with hyperpigmentation around both lower extremities. NEUROLOGIC: Cranial nerves II through XII grossly intact. Motor is 5/5 in all extremities. Gait was not assessed due to patient's status. RECTAL: Exam refused and deferred. PSYCHIATRIC: Mood and affect is calm and relaxed at this time, but he has history of schizophrenia. Assessment/Plan Assessment/Plan ASSESSMENT: 1. Acute CHF exacerbation on chronic with mild pulmonary edema and fluid overload. LVEF=10-15% 2. Hypertension. 3. Morbid obesity. 4. Atrial flutter. 5. History of paranoid schizophrenia and malingering. 6. History of Graves disease. 7. Prediabetic. 8. History of lower extremity chronic edema. 9. Anemia. 10. Chronic kidney disease. PLAN: 1. Admit patient to monitored unit. 2. Dr. Tone Chapman = Cardiology consult 3. Dr. Mccray=Pulmonary Critical Care. 4. On lasix and metolazone. 5. Code status is Full Code. 6. DVT prophylaxis=Eliquis. 7. Yousif Yoder MD October 21, 2019 13:46
--- NOTE | 2019-10-21 14:06 | Cardiology Progress Note ---
Assessment/Plan Assessment/Plan 1. Chronic systolic heart failure. 2. No evidence of coronary artery disease by cardiac catheterization at [facility] in 2018. 3. Atrial flutter with 2:1 block. 4. Chronic recurrent chest pains with multiple hospitalizations at [facility] as well as [facility] as well as [facility], at least the ones known of. 5. Nonsustained ventricular tachycardia. 6. History of hypertension. 7. Prediabetes. 8. History of renal insufficiency. 9. Anemia. 10. Chronic schizophrenia. 11. Reported history of Munchausen syndrome. 12. Reported history of malingering. 13. Homelessness. bp seems fine is on on gdmt tele personally reviewed atrial flutter / tachy with 2:1 block no vt keep on present diuretic dose nto have an iv will give more metolazone Subjective Subjective talked with pt on the phone , had sob at 2 am got up at the edge up the bed had bm in the bed , little loose not watery , rn collected the diarrhea , sat up since then PMH Systolic CHF, acute on chronic (HCC) Chest pain Abnormal EKG Cardiomyopathy (HCC) NSVT (nonsustained ventricular tachycardia) (HCC) Chronic venous stasis dermatitis of both lower extremities HTN (hypertension) Acute on chronic congestive heart failure (HCC) Elevated brain natriuretic peptide (BNP) level Acute exacerbation of CHF (congestive heart failure) (HCC) Endocrine/Metabolic Graves disease Thyrotoxicosis Prediabetes Gastrointestinal and Abdominal Acute pancreatitis Genitourinary and Reproductive Renal insufficiency Acute kidney injury (HCC) Hyperkalemia Hematology and Neoplasia Anemia Infectious Diseases Cellulitis of lower extremity Mental Health Chronic schizophrenia (HCC) Munchausen's syndrome Paranoid schizophrenia (HCC) Adjustment disorder with depressed mood Pulmonary and Pneumonias Acute on chronic respiratory failure with hypercapnia Symptoms and Signs Edema extremities Exertional dyspnea Leg swelling Tobacco Smoker Other Homelessness Malingering Objective Last 24 Hour Vital Signs Date Time Temp Pulse Resp B/P (MAP) Pulse Ox O2 Delivery O2 Flow Rate FiO2 10/21/19 12:00 97.9 109 20 112/84 (93) 100 10/21/19 08:58 111/79 10/21/19 08:57 111 111/79 10/21/19 08:25 Nasal Cannula 6.0 10/21/19 08:02 111 10/21/19 08:01 110 24 98 Nasal Cannula 4.0 36 108 26 97 10/21/19 08:01 97 Nasal Cannula 4.0 36 10/21/19 07:58 97.6 110 18 111/79 (90) 100 10/21/19 07:50 108 26 97 Nasal Cannula 4.0 36 10/21/19 04:00 97.9 105 19 125/83 (97) 100 10/21/19 04:00 123 10/21/19 03:06 Nasal Cannula 4.0 10/21/19 00:00 110 10/21/19 00:00 98.0 120 20 120/93 (102) 98 10/20/19 21:08 107 123/90 10/20/19 21:00 Nasal Cannula 4.0 10/20/19 20:00 97.5 107 20 123/90 (101) 99 10/20/19 20:00 115 10/20/19 19:36 98 Nasal Cannula 4.0 36 10/20/19 19:35 84 20 98 Nasal Cannula 4.0 36 10/20/19 16:00 111 10/20/19 16:00 97.5 111 20 122/70 (87) 95 10/20/19 14:31 96 18 100 Nasal Cannula 4.0 36 94 18 97 General Appearance: no apparent distress, alert Intake and Output 10/20/19 10/21/19 19:00 07:00 Intake Total 1200 ml 120 ml Output Total 900 ml 500 ml Balance 300 ml -380 ml Intake Oral 1200 ml 120 ml Output Urine Total 900 ml 500 ml # Bowel Movements 1 Laboratory Tests Test 10/21/19 05:50 White Blood Count 7.3 K/UL (4.8-10.8) Red Blood Count 3.37 M/UL (4.70-6.10) L Hemoglobin 10.5 G/DL (14.2-18.0) L Hematocrit 32.1 % (42.0-52.0) L Mean Corpuscular Volume 95 FL (80-99) Mean Corpuscular Hemoglobin 31.3 PG (27.0-31.0) H Mean Corpuscular Hemoglobin Concent 32.8 G/DL (32.0-36.0) Red Cell Distribution Width 15.6 % (11.6-14.8) H Platelet Count 108 K/UL (150-450) L Mean Platelet Volume 7.5 FL (6.5-10.1) Neutrophils (%) (Auto) 71.1 % (45.0-75.0) Lymphocytes (%) (Auto) 12.2 % (20.0-45.0) L Monocytes (%) (Auto) 14.1 % (1.0-10.0) H Eosinophils (%) (Auto) 0.9 % (0.0-3.0) Basophils (%) (Auto) 1.6 % (0.0-2.0) Sodium Level 136 MMOL/L (136-145) Potassium Level 4.5 MMOL/L (3.5-5.1) Chloride Level 98 MMOL/L (98-107) Carbon Dioxide Level 31 MMOL/L (21-32) Anion Gap 7 mmol/L (5-15) Blood Urea Nitrogen 25 mg/dL (7-18) H Creatinine 1.5 MG/DL (0.55-1.30) H Estimat Glomerular Filtration Rate 59.4 mL/min (>60) Glucose Level 103 MG/DL (74-106) Calcium Level 8.2 MG/DL (8.5-10.1) L Objective per pulm PA Respiratory: no respiratory distress, no accessory muscle use, decreased breath sounds Cardiovascular: normal rate Abdomen: normal bowel sounds, soft, non tender - obese Extremities: +1 edema BLE Tone Chapman MD October 21, 2019 14:06
[2019-10-21 16:00] VITALS: BP 120/88
[2019-10-21 20:00] VITALS: BP 127/84
[2019-10-22] VITALS: BP 119/88
[2019-10-22 04:00] VITALS: BP 115/90
[2019-10-22 07:26] LABS: HEMATOCRIT 30.1 % (42.0-52.0); HEMOGLOBIN 9.8 G/DL (14.2-18.0); MEAN CORPUSCULAR VOLUME 95 FL (80-99); PLATELET COUNT 95 K/UL (150-450); RED BLOOD COUNT 3.17 M/UL (4.70-6.10); RED CELL DISTRIBUTION WIDTH 15.7 % (11.6-14.8); WHITE BLOOD COUNT 5.8 K/UL (4.8-10.8)
[2019-10-22 07:40] LABS: ANION GAP 7 mmol/L (5-15); BLOOD UREA NITROGEN 26 mg/dL (7-18); CALCIUM 8.1 MG/DL (8.5-10.1); CARBON DIOXIDE 31 MMOL/L (21-32); CHLORIDE 99 MMOL/L (98-107); CREATININE 1.5 MG/DL (0.55-1.30); POTASSIUM 4.1 MMOL/L (3.5-5.1); SODIUM 137 MMOL/L (136-145)
[2019-10-22 08:00] VITALS: BP 120/65
[2019-10-22] MEDS: Furosemide 40mg tab ORAL SCH ×2 (08:09→17:07)
[2019-10-22] MEDS: Allopurinol 100mg Tab ORAL SCH (08:09)
[2019-10-22] MEDS: Docusate 100mg cap ORAL SCH ×3 (08:10→17:07)
[2019-10-22] MEDS: Carvedilol 6.25mg Tab ORAL SCH ×2 (08:10→22:47)
[2019-10-22] MEDS: Eliquis 5mg tablet ORAL SCH ×2 (08:10→17:07)
[2019-10-22] MEDS: Lisinopril 2.5mg tab ORAL SCH (08:11)
[2019-10-22] MEDS: Heparin 5000 units/ml inj SUBQ SCH ×2 (08:11→21:00)
--- NOTE | 2019-10-22 09:49 | Nephrology Progress Note ---
Assessment/Plan Problem List: (1) Acute on chronic renal insufficiency Assessment: Creatinine lowering (2) Anemia Assessment: Appears to be iron deficiency (3) Pulmonary HTN Assessment Renal failure most likely secondary to cardiomyopathy and cardiorenal syndrome Acute CHF exacerbation on chronic with mild pulmonary edema and fluid overload Severe dilated cardiomyopathy with EF 10 to 15% COPD Moderate pulmonary hypertension Hypertension Anemia , iron panel suggestive of iron deficiency anemia Schizophrenia with hx of diagnosed Munchausen syndrome and malingering Liver cirrhosis, splenomegaly, thrombocytopenia Plan Stable from renal standpoint of view Status quo- serum creatinine stable 1.5 today Intravenous iron Optimize cardiac status, per decker operator's advice Watch and monitor renal parameters Previously Avoid nephrotoxic's check CEA level, check stool for OB Afterload reduction and parameters for blood pressure medications Per orders Subjective ROS Limited/Unobtainable: No Constitutional: Reports: malaise, weakness Objective Objective Last 24 Hour Vital Signs Date Time Temp Pulse Resp B/P (MAP) Pulse Ox O2 Delivery O2 Flow Rate FiO2 10/22/19 08:11 120/65 10/22/19 08:10 97 120/65 10/22/19 08:00 98.2 97 19 120/65 (83) 91 10/22/19 04:00 110 10/22/19 04:00 97.8 105 18 115/90 (98) 97 10/22/19 00:00 101 10/22/19 00:00 97.8 110 19 119/88 (98) 98 10/21/19 23:11 114 20 100 Nasal Cannula 4.0 36 112 20 99 10/21/19 21:13 110 127/84 10/21/19 21:00 Nasal Cannula 4.0 10/21/19 20:00 97.2 111 18 127/84 (98) 100 10/21/19 20:00 99 Nasal Cannula 4.0 36 10/21/19 20:00 110 10/21/19 20:00 112 20 99 Nasal Cannula 4.0 36 10/21/19 16:00 108 10/21/19 16:00 96.6 105 18 120/88 (99) 97 10/21/19 14:20 111 24 99 Nasal Cannula 4.0 36 106 24 96 10/21/19 12:00 97.9 109 20 112/84 (93) 100 10/21/19 12:00 108 Intake and Output 10/21/19 10/22/19 19:00 07:00 Intake Total 240 ml Output Total 140 ml 200 ml Balance -140 ml 40 ml Intake Oral 240 ml Output Urine Total 140 ml 200 ml # Voids 3 2 Laboratory Tests 10/21/19 17:17: Stool Occult Blood [Pending] 10/22/19 06:38: White Blood Count 5.8, Red Blood Count 3.17L, Hemoglobin 9.8L, Hematocrit 30.1L , Mean Corpuscular Volume 95, Mean Corpuscular Hemoglobin 31.0, Mean Corpuscular Hemoglobin Concent 32.6, Red Cell Distribution Width 15.7H, Platelet Count 95L, Mean Platelet Volume 7.1, Neutrophils (%) (Auto) , Lymphocytes (%) (Auto) , Monocytes (%) (Auto) , Eosinophils (%) (Auto) , Basophils (%) (Auto) , Differential Total Cells Counted 100, Neutrophils % ( Manual) 62, Lymphocytes % (Manual) 26, Monocytes % (Manual) 9, Eosinophils % ( Manual) 3, Basophils % (Manual) 0, Band Neutrophils 0, Platelet Estimate DecreasedL, Platelet Morphology Normal, Anisocytosis 1+, Sodium Level 137, Potassium Level 4.1, Chloride Level 99, Carbon Dioxide Level 31, Anion Gap 7, Blood Urea Nitrogen 26H, Creatinine 1.5H, Estimat Glomerular Filtration Rate 59.4, Glucose Level 128H, Calcium Level 8.1L Height (Feet): 5 Height (Inches): 6.00 Weight (Pounds): 208 General Appearance: no apparent distress Cardiovascular: tachycardia Respiratory/Chest: decreased breath sounds Abdomen: distended Scout Cody MD Oct 22, 2019 09:49
[2019-10-22] MEDS: Albuterol/Ipratropium 3ml neb HHN PRN ×2 (11:28→20:28)
[2019-10-22 12:00] VITALS: BP 114/81
--- NOTE | 2019-10-22 12:16 | Pulmonology Progress Note ---
Subjective ROS Limited/Unobtainable: No Allergies: Coded Allergies: SIMVASTATIN (Verified Allergy, Unknown, 07/03/19) Uncoded Allergies: STATINS (Allergy, Unknown, 08/13/19) Objective Last 24 Hour Vital Signs Date Time Temp Pulse Resp B/P (MAP) Pulse Ox O2 Delivery O2 Flow Rate FiO2 10/22/19 11:28 102 22 100 Nasal Cannula 4.0 36 99 22 98 10/22/19 09:00 Nasal Cannula 4.0 10/22/19 08:11 120/65 10/22/19 08:10 97 120/65 10/22/19 08:00 112 10/22/19 08:00 98.2 97 19 120/65 (83) 91 10/22/19 07:00 98 22 99 Nasal Cannula 4.0 36 10/22/19 07:00 99 Nasal Cannula 4.0 36 10/22/19 04:00 110 10/22/19 04:00 97.8 105 18 115/90 (98) 97 10/22/19 00:00 101 10/22/19 00:00 97.8 110 19 119/88 (98) 98 10/21/19 23:11 114 20 100 Nasal Cannula 4.0 36 112 20 99 10/21/19 21:13 110 127/84 10/21/19 21:00 Nasal Cannula 4.0 10/21/19 20:00 97.2 111 18 127/84 (98) 100 10/21/19 20:00 99 Nasal Cannula 4.0 36 10/21/19 20:00 110 10/21/19 20:00 112 20 99 Nasal Cannula 4.0 36 10/21/19 16:00 108 10/21/19 16:00 96.6 105 18 120/88 (99) 97 10/21/19 14:20 111 24 99 Nasal Cannula 4.0 36 106 24 96 Intake and Output 10/21/19 10/22/19 19:00 07:00 Intake Total 240 ml Output Total 140 ml 200 ml Balance -140 ml 40 ml Intake Oral 240 ml Output Urine Total 140 ml 200 ml # Voids 3 2 General Appearance: WD/WN HEENT: normocephalic, anicteric Respiratory: chest wall non-tender, rhonchi - left, rhonchi - right Cardiovascular: normal peripheral pulses, normal rate Abdomen: normal bowel sounds, soft, non tender Genitourinary: normal external genitalia Extremities: no cyanosis Skin: no rash Neurologic: epic interface analyst II-XII grossly normal Laboratory Tests 10/21/19 17:17: Stool Occult Blood [Pending] 10/22/19 06:38: White Blood Count 5.8, Red Blood Count 3.17L, Hemoglobin 9.8L, Hematocrit 30.1L , Mean Corpuscular Volume 95, Mean Corpuscular Hemoglobin 31.0, Mean Corpuscular Hemoglobin Concent 32.6, Red Cell Distribution Width 15.7H, Platelet Count 95L, Mean Platelet Volume 7.1, Neutrophils (%) (Auto) , Lymphocytes (%) (Auto) , Monocytes (%) (Auto) , Eosinophils (%) (Auto) , Basophils (%) (Auto) , Differential Total Cells Counted 100, Neutrophils % ( Manual) 62, Lymphocytes % (Manual) 26, Monocytes % (Manual) 9, Eosinophils % ( Manual) 3, Basophils % (Manual) 0, Band Neutrophils 0, Platelet Estimate DecreasedL, Platelet Morphology Normal, Anisocytosis 1+, Sodium Level 137, Potassium Level 4.1, Chloride Level 99, Carbon Dioxide Level 31, Anion Gap 7, Blood Urea Nitrogen 26H, Creatinine 1.5H, Estimat Glomerular Filtration Rate 59.4, Glucose Level 128H, Calcium Level 8.1L Current Medications Medications (Trade) Dose Ordered Sig/Marybeth Route PRN Reason Start Time Stop Time Status Last Admin Dose Admin Acetaminophen (Tylenol) 650 mg Q4H PRN ORAL T>100.5 10/11/19 21:00 11/10/19 20:59 Albuterol/ Ipratropium (Albuterol/ Ipratropium) 3 ml Q4H PRN HHN Shortness of Breath 10/20/19 07:15 10/25/19 07:14 10/22/19 11:28 Allopurinol (Zyloprim) 200 mg DAILY ORAL 10/15/19 09:45 11/14/19 09:44 10/22/19 08:09 Apixaban (Eliquis) 5 mg BID ORAL 10/12/19 18:00 01/10/20 17:59 10/22/19 08:10 Carvedilol (Coreg) 6.25 mg EVERY 12 HOURS ORAL 10/11/19 21:00 11/10/19 20:59 10/22/19 08:10 Dextrose (Dextrose 50%) 25 ml Q30M PRN IV Hypoglycemia 10/11/19 21:00 01/09/20 20:59 Dextrose (Dextrose 50%) 50 ml Q30MIN PRN IV Hypoglycemia 10/11/19 21:00 01/09/20 20:59 Docusate Sodium (Colace) 100 mg THREE TIMES A DAY ORAL 10/14/19 18:00 11/13/19 17:59 10/22/19 08:10 Ferrous Sulfate (Feosol) 325 mg THREE TIMES A DAY ORAL 10/17/19 21:45 01/15/20 21:44 10/22/19 08:09 Furosemide (Lasix) 40 mg BID ORAL 10/17/19 09:00 11/16/19 08:59 10/22/19 08:09 Heparin Sodium (Porcine) (Heparin 5000 units/ml) 5,000 units EVERY 12 HOURS SUBQ 10/12/19 09:00 11/26/19 08:59 Lisinopril (ZestriL) 5 mg DAILY ORAL 10/15/19 09:00 11/11/19 08:59 10/22/19 08:11 Metolazone (Zaroxolyn) 5 mg DAILY ORAL 10/22/19 09:00 11/21/19 08:59 10/22/19 08:15 Ondansetron HCl (Zofran) 4 mg Q6H PRN IVP Nausea & Vomiting 10/11/19 21:00 11/10/19 20:59 Pantoprazole (Protonix) 40 mg EVERY 12 HOURS ORAL 10/14/19 13:15 11/13/19 13:14 10/22/19 08:10 Polyethylene Glycol (Miralax) 17 gm DAILYPRN PRN ORAL Constipation 10/11/19 21:00 11/10/19 20:59 Assessment/Plan Problems: (1) Acute on chronic congestive heart failure (2) Refractory end stage heart failure (3) COPD (chronic obstructive pulmonary disease) (4) Atrial fibrillation, chronic (5) Normocytic anemia (6) Acute on chronic renal insufficiency (7) Thrombocytopenia (8) Pulmonary HTN (9) HTN (hypertension) Assessment/Plan still c/o shortness of breath => will get CXR today in /out blance is -8.3 liters still short of breath respiratory treatment Echo showing EF 10-15% titrate fio2 to sat of 92% venous doppler to rule out DVT on Epixiban Palak Mccray MD Oct 22, 2019 12:16
[2019-10-22 16:00] VITALS: BP 139/82
--- NOTE | 2019-10-22 16:02 | Diagnostic Imaging Report ---
Indication: Dyspnea Technique: One view of the chest Comparison: 10/17/2019 Findings: Cardiomegaly persists. Mild interstitial congestion and hazy parenchymal disease is unchanged. There is indistinctness of the right hemidiaphragm, developing small pleural effusion likely. Impression: Suspect developing small right pleural effusion. Otherwise unchanged since prior exam of 10/17/2019
--- NOTE | 2019-10-22 17:53 | Internal Med Progress Note ---
Subjective Date of Service: Oct 22, 2019 Physician Name YoderYousif Attending Physician Neftali Tinsley MD Current Medications Medications (Trade) Dose Ordered Sig/Marybeth Route PRN Reason Start Time Stop Time Status Last Admin Dose Admin Acetaminophen (Tylenol) 650 mg Q4H PRN ORAL T>100.5 10/11/19 21:00 11/10/19 20:59 Albuterol/ Ipratropium (Albuterol/ Ipratropium) 3 ml Q4H PRN HHN Shortness of Breath 10/20/19 07:15 10/25/19 07:14 10/22/19 11:28 Allopurinol (Zyloprim) 200 mg DAILY ORAL 10/15/19 09:45 11/14/19 09:44 10/22/19 08:09 Apixaban (Eliquis) 5 mg BID ORAL 10/12/19 18:00 01/10/20 17:59 10/22/19 17:07 Carvedilol (Coreg) 6.25 mg EVERY 12 HOURS ORAL 10/11/19 21:00 11/10/19 20:59 10/22/19 08:10 Dextrose (Dextrose 50%) 25 ml Q30M PRN IV Hypoglycemia 10/11/19 21:00 01/09/20 20:59 Dextrose (Dextrose 50%) 50 ml Q30MIN PRN IV Hypoglycemia 10/11/19 21:00 01/09/20 20:59 Docusate Sodium (Colace) 100 mg THREE TIMES A DAY ORAL 10/14/19 18:00 11/13/19 17:59 10/22/19 17:07 Ferrous Sulfate (Feosol) 325 mg THREE TIMES A DAY ORAL 10/17/19 21:45 01/15/20 21:44 10/22/19 17:06 Furosemide (Lasix) 40 mg BID ORAL 10/17/19 09:00 11/16/19 08:59 10/22/19 17:07 Heparin Sodium (Porcine) (Heparin 5000 units/ml) 5,000 units EVERY 12 HOURS SUBQ 10/12/19 09:00 11/26/19 08:59 Lisinopril (ZestriL) 5 mg DAILY ORAL 10/15/19 09:00 11/11/19 08:59 10/22/19 08:11 Metolazone (Zaroxolyn) 5 mg DAILY ORAL 10/22/19 09:00 11/21/19 08:59 10/22/19 08:15 Ondansetron HCl (Zofran) 4 mg Q6H PRN IVP Nausea & Vomiting 10/11/19 21:00 11/10/19 20:59 Pantoprazole (Protonix) 40 mg EVERY 12 HOURS ORAL 10/14/19 13:15 11/13/19 13:14 10/22/19 08:10 Polyethylene Glycol (Miralax) 17 gm DAILYPRN PRN ORAL Constipation 10/11/19 21:00 11/10/19 20:59 Allergies: Coded Allergies: SIMVASTATIN (Verified Allergy, Unknown, 07/03/19) Uncoded Allergies: STATINS (Allergy, Unknown, 08/13/19) ROS Limited/Unobtainable: No Constitutional: Reports: no symptoms HEENT: Reports: no symptoms Cardiovascular: Reports: no symptoms Respiratory: Reports: shortness of breath Gastrointestinal/Abdominal: Reports: no symptoms Genitourinary: Reports: no symptoms Neurologic/Psychiatric: Reports: no symptoms Subjective 54 YO M admitted with shortness of breath. Now Acute on chronic congestive heart failure. Cover for Int Med-Dr Tinsley. Continues to C/O Shortness of breath Objective Last Vital Signs Date Time Temp Pulse Resp B/P (MAP) Pulse Ox O2 Delivery O2 Flow Rate FiO2 10/22/19 16:00 97.3 113 19 139/82 (101) 91 10/22/19 11:28 Nasal Cannula 4.0 36 Laboratory Tests Test 10/22/19 06:38 White Blood Count 5.8 K/UL (4.8-10.8) Red Blood Count 3.17 M/UL (4.70-6.10) L Hemoglobin 9.8 G/DL (14.2-18.0) L Hematocrit 30.1 % (42.0-52.0) L Mean Corpuscular Volume 95 FL (80-99) Mean Corpuscular Hemoglobin 31.0 PG (27.0-31.0) Mean Corpuscular Hemoglobin Concent 32.6 G/DL (32.0-36.0) Red Cell Distribution Width 15.7 % (11.6-14.8) H Platelet Count 95 K/UL (150-450) L Mean Platelet Volume 7.1 FL (6.5-10.1) Neutrophils (%) (Auto) % (45.0-75.0) Lymphocytes (%) (Auto) % (20.0-45.0) Monocytes (%) (Auto) % (1.0-10.0) Eosinophils (%) (Auto) % (0.0-3.0) Basophils (%) (Auto) % (0.0-2.0) Differential Total Cells Counted 100 Neutrophils % (Manual) 62 % (45-75) Lymphocytes % (Manual) 26 % (20-45) Monocytes % (Manual) 9 % (1-10) Eosinophils % (Manual) 3 % (0-3) Basophils % (Manual) 0 % (0-2) Band Neutrophils 0 % (0-8) Platelet Estimate Decreased L Platelet Morphology Normal Anisocytosis 1+ Sodium Level 137 MMOL/L (136-145) Potassium Level 4.1 MMOL/L (3.5-5.1) Chloride Level 99 MMOL/L (98-107) Carbon Dioxide Level 31 MMOL/L (21-32) Anion Gap 7 mmol/L (5-15) Blood Urea Nitrogen 26 mg/dL (7-18) H Creatinine 1.5 MG/DL (0.55-1.30) H Estimat Glomerular Filtration Rate 59.4 mL/min (>60) Glucose Level 128 MG/DL (74-106) H Calcium Level 8.1 MG/DL (8.5-10.1) L Intake and Output 10/21/19 10/22/19 19:00 07:00 Intake Total 240 ml Output Total 140 ml 200 ml Balance -140 ml 40 ml Intake Oral 240 ml Output Urine Total 140 ml 200 ml # Voids 3 2 Objective PHYSICAL EXAMINATION: GENERAL: Patient is awake and responsive. No acute distress. HEAD AND NECK: Pupils are equal and reactive to light. Extraocular movements are intact. Neck was supple. Positive JVD. LUNGS: nasal canula@4 L O2Good air entry. Decreased air in bases. No wheezing or rhonchi. HEART: S1, S2. Tachycardic. Distant heart sounds. No murmur or gallops. ABDOMEN: Soft, nondistended, nontender. Positive bowel sounds. Morbidly obese. GENITOURINARY: Noted scrotal edema. No tenderness. No erythema. EXTREMITIES: No cyanosis or clubbing. +2 edema bilateral lower extremity with hyperpigmentation around both lower extremities. NEUROLOGIC: Cranial nerves II through XII grossly intact. Motor is 5/5 in all extremities. Gait was not assessed due to patient's status. RECTAL: Exam refused and deferred. PSYCHIATRIC: Mood and affect is calm and relaxed at this time, but he has history of schizophrenia. Assessment/Plan Assessment/Plan ASSESSMENT: 1. Acute CHF exacerbation on chronic with mild pulmonary edema and fluid overload. LVEF=10-15% 2. Hypertension. 3. Morbid obesity. 4. Atrial flutter. 5. History of paranoid schizophrenia and malingering. 6. History of Graves disease. 7. Prediabetic. 8. History of lower extremity chronic edema. 9. Anemia. 10. Chronic kidney disease. PLAN: 1. Admit patient to monitored unit. 2. Dr. Tone Chapman = Cardiology consult 3. Dr. Mccray=Pulmonary Critical Care. 4. On lasix and metolazone. 5. Code status is Full Code. 6. DVT prophylaxis=Eliquis. 7. Yousif Yoder MD Oct 22, 2019 17:53
--- NOTE | 2019-10-22 19:29 | Cardiology Progress Note ---
Assessment/Plan Assessment/Plan 1. Chronic systolic heart failure. 2. No evidence of coronary artery disease by cardiac catheterization at [facility] in 2018. 3. Atrial flutter with 2:1 block. 4. Chronic recurrent chest pains with multiple hospitalizations at [facility] as well as [facility] as well as [facility], at least the ones known of. 5. Nonsustained ventricular tachycardia. 6. History of hypertension. 7. Prediabetes. 8. History of renal insufficiency. 9. Anemia. 10. Chronic schizophrenia. 11. Reported history of Munchausen syndrome. 12. Reported history of malingering. 13. Homelessness. bp seems fine is on on gdmt tele personally reviewed atrial flutter / tachy with 2:1 block no vt will swtich to torsemide and keep metolazone entresto may be a better medication for him but not available here at [facility] [place] Subjective Subjective atient in bed awake. O2 via NC in place, with SOB noted. Not in acute distress. HOB elevated PMH Systolic CHF, acute on chronic (HCC) Chest pain Abnormal EKG Cardiomyopathy (HCC) NSVT (nonsustained ventricular tachycardia) (HCC) Chronic venous stasis dermatitis of both lower extremities HTN (hypertension) Acute on chronic congestive heart failure (HCC) Elevated brain natriuretic peptide (BNP) level Acute exacerbation of CHF (congestive heart failure) (HCC) Endocrine/Metabolic Graves disease Thyrotoxicosis Prediabetes Gastrointestinal and Abdominal Acute pancreatitis Genitourinary and Reproductive Renal insufficiency Acute kidney injury (HCC) Hyperkalemia Hematology and Neoplasia Anemia Infectious Diseases Cellulitis of lower extremity Mental Health Chronic schizophrenia (HCC) Munchausen's syndrome Paranoid schizophrenia (HCC) Adjustment disorder with depressed mood Pulmonary and Pneumonias Acute on chronic respiratory failure with hypercapnia Symptoms and Signs Edema extremities Exertional dyspnea Leg swelling Tobacco Smoker Other Homelessness Malingering Objective Last 24 Hour Vital Signs Date Time Temp Pulse Resp B/P (MAP) Pulse Ox O2 Delivery O2 Flow Rate FiO2 10/22/19 16:00 97.3 113 19 139/82 (101) 91 10/22/19 16:00 105 10/22/19 12:00 97.9 114 19 114/81 (92) 99 10/22/19 12:00 107 10/22/19 11:28 102 22 100 Nasal Cannula 4.0 36 99 22 98 10/22/19 09:00 Nasal Cannula 4.0 10/22/19 08:11 120/65 10/22/19 08:10 97 120/65 10/22/19 08:00 112 10/22/19 08:00 98.2 97 19 120/65 (83) 91 10/22/19 07:00 98 22 99 Nasal Cannula 4.0 36 10/22/19 07:00 99 Nasal Cannula 4.0 36 10/22/19 04:00 110 10/22/19 04:00 97.8 105 18 115/90 (98) 97 10/22/19 00:00 101 10/22/19 00:00 97.8 110 19 119/88 (98) 98 10/21/19 23:11 114 20 100 Nasal Cannula 4.0 36 112 20 99 10/21/19 21:13 110 127/84 10/21/19 21:00 Nasal Cannula 4.0 10/21/19 20:00 97.2 111 18 127/84 (98) 100 10/21/19 20:00 99 Nasal Cannula 4.0 36 10/21/19 20:00 110 10/21/19 20:00 112 20 99 Nasal Cannula 4.0 36 Intake and Output 10/21/19 10/22/19 19:00 07:00 Intake Total 240 ml Output Total 140 ml 200 ml Balance -140 ml 40 ml Intake Oral 240 ml Output Urine Total 140 ml 200 ml # Voids 3 2 Laboratory Tests Test 10/22/19 06:38 White Blood Count 5.8 K/UL (4.8-10.8) Red Blood Count 3.17 M/UL (4.70-6.10) L Hemoglobin 9.8 G/DL (14.2-18.0) L Hematocrit 30.1 % (42.0-52.0) L Mean Corpuscular Volume 95 FL (80-99) Mean Corpuscular Hemoglobin 31.0 PG (27.0-31.0) Mean Corpuscular Hemoglobin Concent 32.6 G/DL (32.0-36.0) Red Cell Distribution Width 15.7 % (11.6-14.8) H Platelet Count 95 K/UL (150-450) L Mean Platelet Volume 7.1 FL (6.5-10.1) Neutrophils (%) (Auto) % (45.0-75.0) Lymphocytes (%) (Auto) % (20.0-45.0) Monocytes (%) (Auto) % (1.0-10.0) Eosinophils (%) (Auto) % (0.0-3.0) Basophils (%) (Auto) % (0.0-2.0) Differential Total Cells Counted 100 Neutrophils % (Manual) 62 % (45-75) Lymphocytes % (Manual) 26 % (20-45) Monocytes % (Manual) 9 % (1-10) Eosinophils % (Manual) 3 % (0-3) Basophils % (Manual) 0 % (0-2) Band Neutrophils 0 % (0-8) Platelet Estimate Decreased L Platelet Morphology Normal Anisocytosis 1+ Sodium Level 137 MMOL/L (136-145) Potassium Level 4.1 MMOL/L (3.5-5.1) Chloride Level 99 MMOL/L (98-107) Carbon Dioxide Level 31 MMOL/L (21-32) Anion Gap 7 mmol/L (5-15) Blood Urea Nitrogen 26 mg/dL (7-18) H Creatinine 1.5 MG/DL (0.55-1.30) H Estimat Glomerular Filtration Rate 59.4 mL/min (>60) Glucose Level 128 MG/DL (74-106) H Calcium Level 8.1 MG/DL (8.5-10.1) L Objective per dr kumar LUNGS: nasal canula@4 L O2Good air entry. Decreased air in bases. No wheezing or rhonchi. HEART: S1, S2. Tachycardic. Distant heart sounds. No murmur or gallops. ABDOMEN: Soft, nondistended, nontender. Positive bowel sounds. Morbidly obese. EXTREMITIES: No cyanosis or clubbing. +2 edema bilateral lower extremity Tone Chapman MD Oct 22, 2019 19:29
[2019-10-22 20:00] VITALS: BP 116/88
[2019-10-23] VITALS: BP 110/60
[2019-10-23 07:11] LABS: ALANINE AMINOTRANSFERASE 16 U/L (12-78); ALBUMIN 3.4 G/DL (3.4-5.0); ALBUMIN/GLOBULIN RATIO 0.9 (1.0-2.7); ALKALINE PHOSPHATASE 86 U/L (46-116); ANION GAP 5 mmol/L (5-15); ASPARTATE AMINO TRANSFERASE 38 U/L (15-37); BILIRUBIN,TOTAL 0.6 MG/DL (0.2-1.0); BLOOD UREA NITROGEN 27 mg/dL (7-18); CALCIUM 7.9 MG/DL (8.5-10.1); CARBON DIOXIDE 32 MMOL/L (21-32); CHLORIDE 100 MMOL/L (98-107); CREATININE 1.5 MG/DL (0.55-1.30); POTASSIUM 4.2 MMOL/L (3.5-5.1); SODIUM 137 MMOL/L (136-145)
[2019-10-23 07:13] LABS: HEMATOCRIT 31.2 % (42.0-52.0); HEMOGLOBIN 10.1 G/DL (14.2-18.0); MEAN CORPUSCULAR VOLUME 95 FL (80-99); PLATELET COUNT 99 K/UL (150-450); RED BLOOD COUNT 3.27 M/UL (4.70-6.10); RED CELL DISTRIBUTION WIDTH 15.4 % (11.6-14.8); WHITE BLOOD COUNT 5.7 K/UL (4.8-10.8)
[2019-10-23 08:00] VITALS: BP 135/88
[2019-10-23] MEDS: Heparin 5000 units/ml inj SUBQ SCH ×2 (09:00→21:00)
[2019-10-23] MEDS: Albuterol/Ipratropium 3ml neb HHN PRN (09:03)
[2019-10-23] MEDS: Lisinopril 2.5mg tab ORAL SCH (09:13)
[2019-10-23] MEDS: Eliquis 5mg tablet ORAL SCH ×2 (09:13→17:56)
[2019-10-23] MEDS: Allopurinol 100mg Tab ORAL SCH (09:14)
[2019-10-23] MEDS: Torsemide 10mg tab ORAL SCH (09:14)
[2019-10-23] MEDS: Docusate 100mg cap ORAL SCH ×3 (09:15→17:57)
[2019-10-23] MEDS: Carvedilol 6.25mg Tab ORAL SCH ×2 (09:25→21:12)
[2019-10-23 12:00] VITALS: BP 126/91
--- NOTE | 2019-10-23 12:27 | Pulmonology Progress Note ---
Subjective ROS Limited/Unobtainable: No Hematologic: Reports: no symptoms Musculoskeletal: Reports: no symptoms Allergies: Coded Allergies: SIMVASTATIN (Verified Allergy, Unknown, 07/03/19) Uncoded Allergies: STATINS (Allergy, Unknown, 08/13/19) Objective Last 24 Hour Vital Signs Date Time Temp Pulse Resp B/P (MAP) Pulse Ox O2 Delivery O2 Flow Rate FiO2 10/23/19 12:00 97.0 113 22 126/91 (103) 95 10/23/19 09:25 112 135/88 10/23/19 09:13 135/88 10/23/19 09:04 112 20 100 Nasal Cannula 4.0 36 110 20 99 10/23/19 09:00 Nasal Cannula 4.0 10/23/19 08:00 112 10/23/19 08:00 97.5 112 24 135/88 (104) 96 10/23/19 04:00 105 10/23/19 04:00 112 10/23/19 00:00 113 10/23/19 00:00 97.5 100 20 110/60 (77) 98 10/22/19 22:47 105 116/88 10/22/19 21:00 Nasal Cannula 4.0 10/22/19 20:29 105 20 100 Nasal Cannula 4.0 36 108 20 99 10/22/19 20:00 97.5 113 21 116/88 (97) 100 10/22/19 20:00 112 10/22/19 19:55 98 Nasal Cannula 4.0 36 10/22/19 19:55 101 20 98 Nasal Cannula 4.0 36 10/22/19 16:00 97.3 113 19 139/82 (101) 91 10/22/19 16:00 105 Intake and Output 10/22/19 10/23/19 19:00 07:00 Intake Total 700 ml Output Total 550 ml Balance 150 ml Intake Oral 700 ml Output Urine Total 550 ml # Voids 3 General Appearance: WD/WN HEENT: normocephalic, anicteric Respiratory: chest wall non-tender, rhonchi - left, rhonchi - right Cardiovascular: normal peripheral pulses, normal rate Abdomen: normal bowel sounds, soft, non tender Genitourinary: normal external genitalia Extremities: no cyanosis Skin: no rash Neurologic: investment fund manager II-XII grossly normal Laboratory Tests 10/23/19 06:04: White Blood Count 5.7, Red Blood Count 3.27L, Hemoglobin 10.1L, Hematocrit 31.2L , Mean Corpuscular Volume 95, Mean Corpuscular Hemoglobin 30.8, Mean Corpuscular Hemoglobin Concent 32.3, Red Cell Distribution Width 15.4H, Platelet Count 99L, Mean Platelet Volume 7.6, Neutrophils (%) (Auto) , Lymphocytes (%) (Auto) , Monocytes (%) (Auto) , Eosinophils (%) (Auto) , Basophils (%) (Auto) , Differential Total Cells Counted 100, Neutrophils % ( Manual) 66, Lymphocytes % (Manual) 19L, Monocytes % (Manual) 11H, Eosinophils % (Manual) 3, Basophils % (Manual) 1, Band Neutrophils 0, Platelet Estimate DecreasedL, Platelet Morphology Normal, Hypochromasia 1+, Anisocytosis 1+, Sodium Level 137, Potassium Level 4.2, Chloride Level 100, Carbon Dioxide Level 32, Anion Gap 5, Blood Urea Nitrogen 27H, Creatinine 1.5H, Estimat Glomerular Filtration Rate 59.4, Glucose Level 157H, Calcium Level 7.9L, Total Bilirubin 0.6, Aspartate Amino Transf (AST/SGOT) 38H, Alanine Aminotransferase (ALT/SGPT) 16, Alkaline Phosphatase 86, Pro-B-Type Natriuretic Peptide 3975H, Total Protein 7.0, Albumin 3.4, Globulin 3.6, Albumin/Globulin Ratio 0.9L Current Medications Medications (Trade) Dose Ordered Sig/Marybeth Route PRN Reason Start Time Stop Time Status Last Admin Dose Admin Acetaminophen (Tylenol) 650 mg Q4H PRN ORAL T>100.5 10/11/19 21:00 11/10/19 20:59 Albuterol/ Ipratropium (Albuterol/ Ipratropium) 3 ml Q4H PRN HHN Shortness of Breath 10/20/19 07:15 10/25/19 07:14 10/23/19 09:03 Allopurinol (Zyloprim) 200 mg DAILY ORAL 10/15/19 09:45 11/14/19 09:44 10/23/19 09:14 Apixaban (Eliquis) 5 mg BID ORAL 10/12/19 18:00 01/10/20 17:59 10/23/19 09:13 Carvedilol (Coreg) 6.25 mg EVERY 12 HOURS ORAL 10/11/19 21:00 11/10/19 20:59 10/23/19 09:25 Dextrose (Dextrose 50%) 25 ml Q30M PRN IV Hypoglycemia 10/11/19 21:00 01/09/20 20:59 Dextrose (Dextrose 50%) 50 ml Q30MIN PRN IV Hypoglycemia 10/11/19 21:00 01/09/20 20:59 Docusate Sodium (Colace) 100 mg THREE TIMES A DAY ORAL 10/14/19 18:00 11/13/19 17:59 10/23/19 09:15 Ferrous Sulfate (Feosol) 325 mg THREE TIMES A DAY ORAL 10/17/19 21:45 01/15/20 21:44 10/23/19 09:13 Heparin Sodium (Porcine) (Heparin 5000 units/ml) 5,000 units EVERY 12 HOURS SUBQ 10/12/19 09:00 11/26/19 08:59 Lisinopril (ZestriL) 5 mg DAILY ORAL 10/15/19 09:00 11/11/19 08:59 10/23/19 09:13 Metolazone (Zaroxolyn) 5 mg DAILY ORAL 10/23/19 09:00 11/22/19 08:59 10/23/19 09:14 Ondansetron HCl (Zofran) 4 mg Q6H PRN IVP Nausea & Vomiting 10/11/19 21:00 11/10/19 20:59 Pantoprazole (Protonix) 40 mg EVERY 12 HOURS ORAL 10/14/19 13:15 11/13/19 13:14 10/23/19 09:11 Polyethylene Glycol (Miralax) 17 gm DAILYPRN PRN ORAL Constipation 10/11/19 21:00 11/10/19 20:59 Torsemide (Demadex) 40 mg DAILY ORAL 10/23/19 09:00 11/22/19 08:59 10/23/19 09:14 Assessment/Plan Problems: (1) Acute on chronic congestive heart failure (2) Refractory end stage heart failure (3) COPD (chronic obstructive pulmonary disease) (4) Atrial fibrillation, chronic (5) Normocytic anemia (6) Acute on chronic renal insufficiency (7) Thrombocytopenia (8) Pulmonary HTN (9) HTN (hypertension) Assessment/Plan cxr showing increasing pleura effusion c/o a mass in the neck, will get CT of neck in /out blance is -8.3 liters still short of breath respiratory treatment Echo showing EF 10-15% titrate fio2 to sat of 92% venous doppler to rule out DVT on Epixiban Palak Mccray MD Oct 23, 2019 12:27
--- NOTE | 2019-10-23 13:17 | Nephrology Progress Note ---
Assessment/Plan Problem List: (1) Acute on chronic renal insufficiency Assessment: Creatinine lowering (2) Anemia Assessment: Appears to be iron deficiency (3) Pulmonary HTN Assessment Renal failure most likely secondary to cardiomyopathy and cardiorenal syndrome Acute CHF exacerbation on chronic with mild pulmonary edema and fluid overload Severe dilated cardiomyopathy with EF 10 to 15% COPD Moderate pulmonary hypertension Hypertension Anemia , iron panel suggestive of iron deficiency anemia Schizophrenia with hx of diagnosed Munchausen syndrome and malingering Liver cirrhosis, splenomegaly, thrombocytopenia Plan Continue per cardiology advice Stable from renal standpoint of view Status quo- serum creatinine stable 1.5 Intravenous iron Optimize cardiac status, per stabilizing machine operator's advice Watch and monitor renal parameters Previously: Avoid nephrotoxic's check CEA level, check stool for OB Afterload reduction and parameters for blood pressure medications Per orders Subjective ROS Limited/Unobtainable: No Constitutional: Reports: malaise, weakness Objective Objective Last 24 Hour Vital Signs Date Time Temp Pulse Resp B/P (MAP) Pulse Ox O2 Delivery O2 Flow Rate FiO2 10/23/19 12:00 97.0 113 22 126/91 (103) 95 10/23/19 12:00 113 10/23/19 09:25 112 135/88 10/23/19 09:13 135/88 10/23/19 09:04 112 20 100 Nasal Cannula 4.0 36 110 20 99 10/23/19 09:00 Nasal Cannula 4.0 10/23/19 08:00 112 10/23/19 08:00 97.5 112 24 135/88 (104) 96 10/23/19 04:00 105 10/23/19 04:00 112 10/23/19 00:00 113 10/23/19 00:00 97.5 100 20 110/60 (77) 98 10/22/19 22:47 105 116/88 10/22/19 21:00 Nasal Cannula 4.0 10/22/19 20:29 105 20 100 Nasal Cannula 4.0 36 108 20 99 10/22/19 20:00 97.5 113 21 116/88 (97) 100 10/22/19 20:00 112 10/22/19 19:55 98 Nasal Cannula 4.0 36 10/22/19 19:55 101 20 98 Nasal Cannula 4.0 36 10/22/19 16:00 97.3 113 19 139/82 (101) 91 10/22/19 16:00 105 Intake and Output 10/22/19 10/23/19 19:00 07:00 Intake Total 700 ml Output Total 550 ml Balance 150 ml Intake Oral 700 ml Output Urine Total 550 ml # Voids 3 Laboratory Tests 10/23/19 06:04: White Blood Count 5.7, Red Blood Count 3.27L, Hemoglobin 10.1L, Hematocrit 31.2L , Mean Corpuscular Volume 95, Mean Corpuscular Hemoglobin 30.8, Mean Corpuscular Hemoglobin Concent 32.3, Red Cell Distribution Width 15.4H, Platelet Count 99L, Mean Platelet Volume 7.6, Neutrophils (%) (Auto) , Lymphocytes (%) (Auto) , Monocytes (%) (Auto) , Eosinophils (%) (Auto) , Basophils (%) (Auto) , Differential Total Cells Counted 100, Neutrophils % ( Manual) 66, Lymphocytes % (Manual) 19L, Monocytes % (Manual) 11H, Eosinophils % (Manual) 3, Basophils % (Manual) 1, Band Neutrophils 0, Platelet Estimate DecreasedL, Platelet Morphology Normal, Hypochromasia 1+, Anisocytosis 1+, Sodium Level 137, Potassium Level 4.2, Chloride Level 100, Carbon Dioxide Level 32, Anion Gap 5, Blood Urea Nitrogen 27H, Creatinine 1.5H, Estimat Glomerular Filtration Rate 59.4, Glucose Level 157H, Calcium Level 7.9L, Total Bilirubin 0.6, Aspartate Amino Transf (AST/SGOT) 38H, Alanine Aminotransferase (ALT/SGPT) 16, Alkaline Phosphatase 86, Pro-B-Type Natriuretic Peptide 3975H, Total Protein 7.0, Albumin 3.4, Globulin 3.6, Albumin/Globulin Ratio 0.9L Height (Feet): 5 Height (Inches): 6.00 Weight (Pounds): 209 General Appearance: no apparent distress Cardiovascular: tachycardia Respiratory/Chest: decreased breath sounds Abdomen: distended Scout Cody MD Oct 23, 2019 13:17
--- NOTE | 2019-10-23 15:09 | Diagnostic Imaging Report ---
Indication: Neck pain and shortness of breath Technique: Spiral acquisitions obtained through the neck. Multiplanar reconstructions were generated.No IV contrast utilized, due to history of renal insufficiency. Total dose length product 329 mGycm. CTDIvol(s) 9 mGy. Dose reduction achieved using automated exposure control Comparison: none Findings: Lack of IV contrast limits evaluation. In addition, there is mild edema of the fat which also limits intrinsic soft tissue contrast. There are numerous prominent but not frankly enlarged lymph nodes in the neck and supraclavicular regions bilaterally. No definite cervical mass or adenopathy. The submandibular and parotid salivary glands are quite prominent bilaterally but are symmetric in appearance. The parapharyngeal spaces are clear except for the above-mentioned generalized edema of the fat. The tonsils and adenoids are somewhat prominent but symmetric. The nasopharynx, oropharynx, and hypopharynx are otherwise unremarkable. The larynx is unremarkable. There is no prevertebral soft tissue swelling. The thyroid is grossly unremarkable. The right maxillary sinus demonstrates some mucosal disease. There is evidence of multiple dental caries and some periodontal disease. No acute fractures. There are degenerative changes of the cervical spine. There is evidence of prior left maxillary sinus surgery. The upper mediastinum demonstrates prominent prevascular space nodes. There is a large pericardial effusion. There is a small to moderate-sized right pleural effusion. There are small areas of paraseptal emphysema in the periphery of the upper lobes bilaterally, left greater than right. The main pulmonary artery is ectatic, measuring 36 mm in diameter, the right pulmonary artery is a ectatic bordering on dilated, measuring 29 mm in diameter, and the left pulmonary artery is frankly dilated, measuring 31 mm in diameter. Impression: Somewhat limited exam, as described Evidence of mild anasarca No definite neck mass Nonspecific prominent but not frankly enlarged bilateral cervical nodes Nonspecific prominence of the tonsils and adenoids Prominent bilateral submandibular and parotid salivary glands. Suspect baseline for this patient. Correlation with clinical findings recommended Dental disease Pulmonary arterial dilatation, consistent with pulmonary arterial hypertension Other upper thoracic findings as described, including large pericardial effusion, right pleural effusion, small areas of upper lobe paraseptal emphysema bilaterally Incidental finding of sinus disease and evidence of prior left maxillary sinus surgery, degenerative spondylosis The CT scanner at [facility] is accredited by the [employer] and the scans are performed using protocols designed to limit radiation exposure to as low as reasonably achievable to attain images of sufficient resolution adequate for diagnostic evaluation.
--- NOTE | 2019-10-23 15:41 | Internal Med Progress Note ---
Subjective Date of Service: Oct 23, 2019 Physician Name BebaYousif Attending Physician Neftali Tinsley MD Current Medications Medications (Trade) Dose Ordered Sig/Marybeth Route PRN Reason Start Time Stop Time Status Last Admin Dose Admin Acetaminophen (Tylenol) 650 mg Q4H PRN ORAL T>100.5 10/11/19 21:00 11/10/19 20:59 Albuterol/ Ipratropium (Albuterol/ Ipratropium) 3 ml Q4H PRN HHN Shortness of Breath 10/20/19 07:15 10/25/19 07:14 10/23/19 09:03 Allopurinol (Zyloprim) 200 mg DAILY ORAL 10/15/19 09:45 11/14/19 09:44 10/23/19 09:14 Apixaban (Eliquis) 5 mg BID ORAL 10/12/19 18:00 01/10/20 17:59 10/23/19 09:13 Carvedilol (Coreg) 6.25 mg EVERY 12 HOURS ORAL 10/11/19 21:00 11/10/19 20:59 10/23/19 09:25 Dextrose (Dextrose 50%) 25 ml Q30M PRN IV Hypoglycemia 10/11/19 21:00 01/09/20 20:59 Dextrose (Dextrose 50%) 50 ml Q30MIN PRN IV Hypoglycemia 10/11/19 21:00 01/09/20 20:59 Docusate Sodium (Colace) 100 mg THREE TIMES A DAY ORAL 10/14/19 18:00 11/13/19 17:59 10/23/19 14:31 Ferrous Sulfate (Feosol) 325 mg THREE TIMES A DAY ORAL 10/17/19 21:45 01/15/20 21:44 10/23/19 14:31 Heparin Sodium (Porcine) (Heparin 5000 units/ml) 5,000 units EVERY 12 HOURS SUBQ 10/12/19 09:00 11/26/19 08:59 Lisinopril (ZestriL) 5 mg DAILY ORAL 10/15/19 09:00 11/11/19 08:59 10/23/19 09:13 Metolazone (Zaroxolyn) 5 mg DAILY ORAL 10/23/19 09:00 11/22/19 08:59 10/23/19 09:14 Ondansetron HCl (Zofran) 4 mg Q6H PRN IVP Nausea & Vomiting 10/11/19 21:00 11/10/19 20:59 Pantoprazole (Protonix) 40 mg EVERY 12 HOURS ORAL 10/14/19 13:15 11/13/19 13:14 10/23/19 09:11 Polyethylene Glycol (Miralax) 17 gm DAILYPRN PRN ORAL Constipation 10/11/19 21:00 11/10/19 20:59 Torsemide (Demadex) 40 mg DAILY ORAL 10/23/19 09:00 11/22/19 08:59 10/23/19 09:14 Allergies: Coded Allergies: SIMVASTATIN (Verified Allergy, Unknown, 07/03/19) Uncoded Allergies: STATINS (Allergy, Unknown, 08/13/19) ROS Limited/Unobtainable: No Constitutional: Reports: no symptoms HEENT: Reports: no symptoms Cardiovascular: Reports: no symptoms Respiratory: Reports: shortness of breath Gastrointestinal/Abdominal: Reports: no symptoms Genitourinary: Reports: no symptoms Neurologic/Psychiatric: Reports: no symptoms Subjective 54 YO M admitted with shortness of breath. Now Acute on chronic congestive heart failure. Cover for Int Med-Dr Tinsley. Continues to C/O Shortness of breath Objective Last Vital Signs Date Time Temp Pulse Resp B/P (MAP) Pulse Ox O2 Delivery O2 Flow Rate FiO2 10/23/19 12:00 97.0 113 22 126/91 (103) 95 10/23/19 09:04 Nasal Cannula 4.0 36 Laboratory Tests Test 10/23/19 06:04 White Blood Count 5.7 K/UL (4.8-10.8) Red Blood Count 3.27 M/UL (4.70-6.10) L Hemoglobin 10.1 G/DL (14.2-18.0) L Hematocrit 31.2 % (42.0-52.0) L Mean Corpuscular Volume 95 FL (80-99) Mean Corpuscular Hemoglobin 30.8 PG (27.0-31.0) Mean Corpuscular Hemoglobin Concent 32.3 G/DL (32.0-36.0) Red Cell Distribution Width 15.4 % (11.6-14.8) H Platelet Count 99 K/UL (150-450) L Mean Platelet Volume 7.6 FL (6.5-10.1) Neutrophils (%) (Auto) % (45.0-75.0) Lymphocytes (%) (Auto) % (20.0-45.0) Monocytes (%) (Auto) % (1.0-10.0) Eosinophils (%) (Auto) % (0.0-3.0) Basophils (%) (Auto) % (0.0-2.0) Differential Total Cells Counted 100 Neutrophils % (Manual) 66 % (45-75) Lymphocytes % (Manual) 19 % (20-45) L Monocytes % (Manual) 11 % (1-10) H Eosinophils % (Manual) 3 % (0-3) Basophils % (Manual) 1 % (0-2) Band Neutrophils 0 % (0-8) Platelet Estimate Decreased L Platelet Morphology Normal Hypochromasia 1+ Anisocytosis 1+ Sodium Level 137 MMOL/L (136-145) Potassium Level 4.2 MMOL/L (3.5-5.1) Chloride Level 100 MMOL/L (98-107) Carbon Dioxide Level 32 MMOL/L (21-32) Anion Gap 5 mmol/L (5-15) Blood Urea Nitrogen 27 mg/dL (7-18) H Creatinine 1.5 MG/DL (0.55-1.30) H Estimat Glomerular Filtration Rate 59.4 mL/min (>60) Glucose Level 157 MG/DL (74-106) H Calcium Level 7.9 MG/DL (8.5-10.1) L Total Bilirubin 0.6 MG/DL (0.2-1.0) Aspartate Amino Transf (AST/SGOT) 38 U/L (15-37) H Alanine Aminotransferase (ALT/SGPT) 16 U/L (12-78) Alkaline Phosphatase 86 U/L (46-116) Pro-B-Type Natriuretic Peptide 3975 pg/mL (0-125) H Total Protein 7.0 G/DL (6.4-8.2) Albumin 3.4 G/DL (3.4-5.0) Globulin 3.6 g/dL Albumin/Globulin Ratio 0.9 (1.0-2.7) L Intake and Output 10/22/19 10/23/19 19:00 07:00 Intake Total 700 ml Output Total 550 ml Balance 150 ml Intake Oral 700 ml Output Urine Total 550 ml # Voids 3 Objective PHYSICAL EXAMINATION: GENERAL: Patient is awake and responsive. No acute distress. HEAD AND NECK: Pupils are equal and reactive to light. Extraocular movements are intact. Neck was supple. Positive JVD. LUNGS: nasal canula@4 L O2Good air entry. Decreased air in bases. No wheezing or rhonchi. HEART: S1, S2. Tachycardic. Distant heart sounds. No murmur or gallops. ABDOMEN: Soft, nondistended, nontender. Positive bowel sounds. Morbidly obese. GENITOURINARY: Noted scrotal edema. No tenderness. No erythema. EXTREMITIES: No cyanosis or clubbing. +2 edema bilateral lower extremity with hyperpigmentation around both lower extremities. NEUROLOGIC: Cranial nerves II through XII grossly intact. Motor is 5/5 in all extremities. Gait was not assessed due to patient's status. RECTAL: Exam refused and deferred. PSYCHIATRIC: Mood and affect is calm and relaxed at this time, but he has history of schizophrenia. Assessment/Plan Assessment/Plan ASSESSMENT: 1. Acute CHF exacerbation on chronic with mild pulmonary edema and fluid overload. LVEF=10-15% 2. Hypertension. 3. Morbid obesity. 4. Atrial flutter. 5. History of paranoid schizophrenia and malingering. 6. History of Graves disease. 7. Prediabetic. 8. History of lower extremity chronic edema. 9. Anemia. 10. Chronic kidney disease. PLAN: 1. Admit patient to monitored unit. 2. Dr. Tone Chapman = Cardiology consult 3. Dr. Mccray=Pulmonary Critical Care. 4. On lasix and metolazone. 5. Code status is Full Code. 6. DVT prophylaxis=Eliquis. Yousif Yoder MD Oct 23, 2019 15:41
[2019-10-23 16:00] VITALS: BP 123/92
--- NOTE | 2019-10-23 16:36 | Cardiology Progress Note ---
Assessment/Plan Assessment/Plan 1. Chronic systolic heart failure. 2. No evidence of coronary artery disease by cardiac catheterization at [facility] in 2018. 3. Atrial flutter with 2:1 block. 4. Chronic recurrent chest pains with multiple hospitalizations at [facility] as well as [facility] as well as [facility], at least the ones known of. 5. Nonsustained ventricular tachycardia. 6. History of hypertension. 7. Prediabetes. 8. History of renal insufficiency. 9. Anemia. 10. Chronic schizophrenia. 11. Reported history of Munchausen syndrome. 12. Reported history of malingering. 13. Homelessness. bp seems fine is on on gdmt pt seen and person wil exmained tele personally reviewed atrial flutter / sinu tachy with 2:1 block had nsvt over nite on torsemide and metolazone increase torsemide to bid if not neg fluid tomorrow entresto may be a better medication for him but not available here at [facility] [place] weigh may not be accurate as bed scale his lv fxn is very poor he will likey be in chf all the time but trying to see if i can make him more comfortable and it may be diffiuclt to tell as he may have ssecondary gians to stay in house which may affect hsi responses to my questions Subjective Cardiovascular: Reports: chest pain Respiratory: Reports: orthopnea, shortness of breath, SOB with excertion Gastrointestinal/Abdominal: Denies: abdominal pain Genitourinary: Denies: burning Subjective per rn: Patient is awake and alert x 4. Patient is on 4 liters of oxygen via nasal canula. Patient denies chest pain and shortness of breath at this time except is unable to lie flat. Tripod position and sitting at edge of bed. Was endorsed that patient has been tachycardic today in the 120's. Patient has been stable and has a history of having this heart rhythm including beats of Vtach. Pt rhythm is a-flutter. Patient is in sitting position at edge of bed, and currently asymptomatic. Pt has no IV access, PMH Systolic CHF, acute on chronic (HCC) Chest pain Abnormal EKG Cardiomyopathy (HCC) NSVT (nonsustained ventricular tachycardia) (HCC) Chronic venous stasis dermatitis of both lower extremities HTN (hypertension) Acute on chronic congestive heart failure (HCC) Elevated brain natriuretic peptide (BNP) level Acute exacerbation of CHF (congestive heart failure) (HCC) Endocrine/Metabolic Graves disease Thyrotoxicosis Prediabetes Gastrointestinal and Abdominal Acute pancreatitis Genitourinary and Reproductive Renal insufficiency Acute kidney injury (HCC) Hyperkalemia Hematology and Neoplasia Anemia Infectious Diseases Cellulitis of lower extremity Mental Health Chronic schizophrenia (HCC) Munchausen's syndrome Paranoid schizophrenia (HCC) Adjustment disorder with depressed mood Pulmonary and Pneumonias Acute on chronic respiratory failure with hypercapnia Symptoms and Signs Edema extremities Exertional dyspnea Leg swelling Tobacco Smoker Other Homelessness Malingering Objective Last 24 Hour Vital Signs Date Time Temp Pulse Resp B/P (MAP) Pulse Ox O2 Delivery O2 Flow Rate FiO2 10/23/19 12:00 97.0 113 22 126/91 (103) 95 10/23/19 12:00 113 10/23/19 09:25 112 135/88 10/23/19 09:13 135/88 10/23/19 09:04 112 20 100 Nasal Cannula 4.0 36 110 20 99 10/23/19 09:00 Nasal Cannula 4.0 10/23/19 08:00 112 10/23/19 08:00 97.5 112 24 135/88 (104) 96 10/23/19 04:00 105 10/23/19 04:00 112 10/23/19 00:00 113 10/23/19 00:00 97.5 100 20 110/60 (77) 98 10/22/19 22:47 105 116/88 10/22/19 21:00 Nasal Cannula 4.0 10/22/19 20:29 105 20 100 Nasal Cannula 4.0 36 108 20 99 10/22/19 20:00 97.5 113 21 116/88 (97) 100 10/22/19 20:00 112 10/22/19 19:55 98 Nasal Cannula 4.0 36 10/22/19 19:55 101 20 98 Nasal Cannula 4.0 36 General Appearance: no apparent distress, alert, obese Cardiovascular: normal rate Respiratory/Chest: crackles/rales Abdomen: normal bowel sounds, non tender, soft Extremities: no swelling Intake and Output 10/22/19 10/23/19 19:00 07:00 Intake Total 700 ml Output Total 550 ml Balance 150 ml Intake Oral 700 ml Output Urine Total 550 ml # Voids 3 Laboratory Tests Test 10/23/19 06:04 White Blood Count 5.7 K/UL (4.8-10.8) Red Blood Count 3.27 M/UL (4.70-6.10) L Hemoglobin 10.1 G/DL (14.2-18.0) L Hematocrit 31.2 % (42.0-52.0) L Mean Corpuscular Volume 95 FL (80-99) Mean Corpuscular Hemoglobin 30.8 PG (27.0-31.0) Mean Corpuscular Hemoglobin Concent 32.3 G/DL (32.0-36.0) Red Cell Distribution Width 15.4 % (11.6-14.8) H Platelet Count 99 K/UL (150-450) L Mean Platelet Volume 7.6 FL (6.5-10.1) Neutrophils (%) (Auto) % (45.0-75.0) Lymphocytes (%) (Auto) % (20.0-45.0) Monocytes (%) (Auto) % (1.0-10.0) Eosinophils (%) (Auto) % (0.0-3.0) Basophils (%) (Auto) % (0.0-2.0) Differential Total Cells Counted 100 Neutrophils % (Manual) 66 % (45-75) Lymphocytes % (Manual) 19 % (20-45) L Monocytes % (Manual) 11 % (1-10) H Eosinophils % (Manual) 3 % (0-3) Basophils % (Manual) 1 % (0-2) Band Neutrophils 0 % (0-8) Platelet Estimate Decreased L Platelet Morphology Normal Hypochromasia 1+ Anisocytosis 1+ Sodium Level 137 MMOL/L (136-145) Potassium Level 4.2 MMOL/L (3.5-5.1) Chloride Level 100 MMOL/L (98-107) Carbon Dioxide Level 32 MMOL/L (21-32) Anion Gap 5 mmol/L (5-15) Blood Urea Nitrogen 27 mg/dL (7-18) H Creatinine 1.5 MG/DL (0.55-1.30) H Estimat Glomerular Filtration Rate 59.4 mL/min (>60) Glucose Level 157 MG/DL (74-106) H Calcium Level 7.9 MG/DL (8.5-10.1) L Total Bilirubin 0.6 MG/DL (0.2-1.0) Aspartate Amino Transf (AST/SGOT) 38 U/L (15-37) H Alanine Aminotransferase (ALT/SGPT) 16 U/L (12-78) Alkaline Phosphatase 86 U/L (46-116) Pro-B-Type Natriuretic Peptide 3975 pg/mL (0-125) H Total Protein 7.0 G/DL (6.4-8.2) Albumin 3.4 G/DL (3.4-5.0) Globulin 3.6 g/dL Albumin/Globulin Ratio 0.9 (1.0-2.7) L Objective per dr kumar LUNGS: nasal canula@4 L O2Good air entry. Decreased air in bases. No wheezing or rhonchi. HEART: S1, S2. Tachycardic. Distant heart sounds. No murmur or gallops. ABDOMEN: Soft, nondistended, nontender. Positive bowel sounds. Morbidly obese. EXTREMITIES: No cyanosis or clubbing. +2 edema bilateral lower extremity Tone Chapman MD Oct 23, 2019 16:36
[2019-10-23 20:00] VITALS: BP 117/89
[2019-10-23] MEDS ORDERED: HYDROcodone/Acetamin 5/325 tab ORAL PRN (23:30)
[2019-10-23] MEDS ORDERED: DiphenhydrAMINE 25mg Tab ORAL PRN (23:30)
[2019-10-24] VITALS: BP 123/84
[2019-10-24] MEDS: Albuterol/Ipratropium 3ml neb HHN PRN ×2 (01:12→10:34)
[2019-10-24 04:00] VITALS: BP 126/75
[2019-10-24 06:35] LABS: BASOPHILS % (AUTO) 1.6 % (0.0-2.0); EOSINOPHILS % (AUTO) 2.3 % (0.0-3.0); HEMATOCRIT 32.1 % (42.0-52.0); HEMOGLOBIN 10.5 G/DL (14.2-18.0); LYMPHOCYTES % (AUTO) 14.6 % (20.0-45.0); MEAN CORPUSCULAR VOLUME 95 FL (80-99); MONOCYTES % (AUTO) 14.4 % (1.0-10.0); NEUTROPHILS % (AUTO) 67.1 % (45.0-75.0); PLATELET COUNT 106 K/UL (150-450); RED BLOOD COUNT 3.37 M/UL (4.70-6.10); RED CELL DISTRIBUTION WIDTH 15.9 % (11.6-14.8); WHITE BLOOD COUNT 5.8 K/UL (4.8-10.8)
[2019-10-24 07:08] LABS: ANION GAP 5 mmol/L (5-15); BLOOD UREA NITROGEN 31 mg/dL (7-18); CALCIUM 8.6 MG/DL (8.5-10.1); CARBON DIOXIDE 32 MMOL/L (21-32); CHLORIDE 101 MMOL/L (98-107); CREATININE 1.6 MG/DL (0.55-1.30); POTASSIUM 4.8 MMOL/L (3.5-5.1); SODIUM 138 MMOL/L (136-145)
[2019-10-24 08:00] VITALS: BP 135/93
[2019-10-24] MEDS: Lisinopril 2.5mg tab ORAL SCH (08:45)
[2019-10-24] MEDS: Allopurinol 100mg Tab ORAL SCH (08:45)
[2019-10-24] MEDS: Eliquis 5mg tablet ORAL SCH ×2 (08:46→18:12)
[2019-10-24] MEDS: Carvedilol 6.25mg Tab ORAL SCH ×2 (08:46→20:45)
[2019-10-24] MEDS: Torsemide 10mg tab ORAL SCH (08:46)
[2019-10-24] MEDS: Docusate 100mg cap ORAL SCH ×4 (08:47→18:11)
[2019-10-24] MEDS: Heparin 5000 units/ml inj SUBQ SCH ×2 (08:47→20:47)
[2019-10-24] MEDS ORDERED: Vitamin A&D Oint Tube TOPIC PRN (10:15)
--- NOTE | 2019-10-24 11:36 | Internal Med Progress Note ---
Subjective Date of Service: Oct 24, 2019 Physician Name Yousif Yoder Attending Physician Neftali Tinsley MD Current Medications Medications (Trade) Dose Ordered Sig/Marybeth Route PRN Reason Start Time Stop Time Status Last Admin Dose Admin Acetaminophen (Tylenol) 650 mg Q4H PRN ORAL T>100.5 10/11/19 21:00 11/10/19 20:59 Acetaminophen/ Hydrocodone Bitart ([place] 5/325) 1 tab Q6H PRN ORAL For Pain 10/23/19 23:30 10/30/19 23:29 10/24/19 00:17 Albuterol/ Ipratropium (Albuterol/ Ipratropium) 3 ml Q4H PRN HHN Shortness of Breath 10/20/19 07:15 10/25/19 07:14 10/24/19 10:34 Allopurinol (Zyloprim) 200 mg DAILY ORAL 10/15/19 09:45 11/14/19 09:44 10/24/19 08:45 Apixaban (Eliquis) 5 mg BID ORAL 10/12/19 18:00 01/10/20 17:59 10/24/19 08:46 Carvedilol (Coreg) 6.25 mg EVERY 12 HOURS ORAL 10/11/19 21:00 11/10/19 20:59 10/24/19 08:46 Dextrose (Dextrose 50%) 25 ml Q30M PRN IV Hypoglycemia 10/11/19 21:00 01/09/20 20:59 Dextrose (Dextrose 50%) 50 ml Q30MIN PRN IV Hypoglycemia 10/11/19 21:00 01/09/20 20:59 Diphenhydramine HCl (Benadryl) 25 mg Q6H PRN ORAL Itching 10/23/19 23:30 11/22/19 23:29 10/24/19 00:17 Docusate Sodium (Colace) 100 mg THREE TIMES A DAY ORAL 10/14/19 18:00 11/13/19 17:59 10/24/19 08:47 Ferrous Sulfate (Feosol) 325 mg THREE TIMES A DAY ORAL 10/17/19 21:45 01/15/20 21:44 10/24/19 08:45 Heparin Sodium (Porcine) (Heparin 5000 units/ml) 5,000 units EVERY 12 HOURS SUBQ 10/12/19 09:00 11/26/19 08:59 Lisinopril (ZestriL) 5 mg DAILY ORAL 10/15/19 09:00 11/11/19 08:59 10/24/19 08:45 Metolazone (Zaroxolyn) 5 mg DAILY ORAL 10/23/19 09:00 11/22/19 08:59 10/24/19 08:47 Ondansetron HCl (Zofran) 4 mg Q6H PRN IVP Nausea & Vomiting 10/11/19 21:00 11/10/19 20:59 Pantoprazole (Protonix) 40 mg EVERY 12 HOURS ORAL 10/14/19 13:15 11/13/19 13:14 10/24/19 08:46 Polyethylene Glycol (Miralax) 17 gm DAILYPRN PRN ORAL Constipation 10/11/19 21:00 11/10/19 20:59 Torsemide (Demadex) 40 mg DAILY ORAL 10/23/19 09:00 11/22/19 08:59 10/24/19 08:46 Vitamin A/Vitamin D (A & D Oint) 1 applic PRN PRN TOPIC dryness/itchyness 10/24/19 10:15 11/23/19 10:14 Allergies: Coded Allergies: SIMVASTATIN (Verified Allergy, Unknown, 07/03/19) Uncoded Allergies: STATINS (Allergy, Unknown, 08/13/19) ROS Limited/Unobtainable: No Constitutional: Reports: no symptoms HEENT: Reports: no symptoms Cardiovascular: Reports: no symptoms Respiratory: Reports: shortness of breath Gastrointestinal/Abdominal: Reports: no symptoms Genitourinary: Reports: no symptoms Neurologic/Psychiatric: Reports: no symptoms Subjective 54 YO M admitted with shortness of breath. Now Acute on chronic congestive heart failure. Cover for Int Neal-Dr Tinsley. Continues to C/O Shortness of breath Objective Last Vital Signs Date Time Temp Pulse Resp B/P (MAP) Pulse Ox O2 Delivery O2 Flow Rate FiO2 10/24/19 10:38 110 20 96 Nasal Cannula 4.0 36 10/24/19 08:46 135/93 10/24/19 08:00 97.5 Laboratory Tests Test 10/24/19 05:45 White Blood Count 5.8 K/UL (4.8-10.8) Red Blood Count 3.37 M/UL (4.70-6.10) L Hemoglobin 10.5 G/DL (14.2-18.0) L Hematocrit 32.1 % (42.0-52.0) L Mean Corpuscular Volume 95 FL (80-99) Mean Corpuscular Hemoglobin 31.2 PG (27.0-31.0) H Mean Corpuscular Hemoglobin Concent 32.6 G/DL (32.0-36.0) Red Cell Distribution Width 15.9 % (11.6-14.8) H Platelet Count 106 K/UL (150-450) L Mean Platelet Volume 7.5 FL (6.5-10.1) Neutrophils (%) (Auto) 67.1 % (45.0-75.0) Lymphocytes (%) (Auto) 14.6 % (20.0-45.0) L Monocytes (%) (Auto) 14.4 % (1.0-10.0) H Eosinophils (%) (Auto) 2.3 % (0.0-3.0) Basophils (%) (Auto) 1.6 % (0.0-2.0) Sodium Level 138 MMOL/L (136-145) Potassium Level 4.8 MMOL/L (3.5-5.1) Chloride Level 101 MMOL/L (98-107) Carbon Dioxide Level 32 MMOL/L (21-32) Anion Gap 5 mmol/L (5-15) Blood Urea Nitrogen 31 mg/dL (7-18) H Creatinine 1.6 MG/DL (0.55-1.30) H Estimat Glomerular Filtration Rate 55.0 mL/min (>60) Glucose Level 92 MG/DL (74-106) Calcium Level 8.6 MG/DL (8.5-10.1) Intake and Output 10/23/19 10/24/19 19:00 07:00 Intake Total 600 ml 800 ml Output Total 800 ml 550 ml Balance -200 ml 250 ml Intake Oral 600 ml 800 ml Output Urine Total 800 ml 550 ml Objective PHYSICAL EXAMINATION: GENERAL: Patient is awake and responsive. No acute distress. HEAD AND NECK: Pupils are equal and reactive to light. Extraocular movements are intact. Neck was supple. Positive JVD. LUNGS: nasal canula@4 L O2Good air entry. Decreased air in bases. No wheezing or rhonchi. HEART: S1, S2. Tachycardic. Distant heart sounds. No murmur or gallops. ABDOMEN: Soft, nondistended, nontender. Positive bowel sounds. Morbidly obese. GENITOURINARY: Noted scrotal edema. No tenderness. No erythema. EXTREMITIES: No cyanosis or clubbing. +2 edema bilateral lower extremity with hyperpigmentation around both lower extremities. NEUROLOGIC: Cranial nerves II through XII grossly intact. Motor is 5/5 in all extremities. Gait was not assessed due to patient's status. RECTAL: Exam refused and deferred. PSYCHIATRIC: Mood and affect is calm and relaxed at this time, but he has history of schizophrenia. Assessment/Plan Assessment/Plan ASSESSMENT: 1. Acute CHF exacerbation on chronic with mild pulmonary edema and fluid overload. LVEF=10-15% 2. Hypertension. 3. Morbid obesity. 4. Atrial flutter. 5. History of paranoid schizophrenia and malingering. 6. History of Graves disease. 7. Prediabetic. 8. History of lower extremity chronic edema. 9. Anemia. 10. Chronic kidney disease. 11. Discharge planning PLAN: 1. Admit patient to monitored unit. 2. Dr. Tone Chapman = Cardiology consult 3. Dr. Mccray=Pulmonary Critical Care. 4. On lasix and metolazone. 5. Code status is Full Code. 6. DVT prophylaxis=Eliquis. Yousif Yoder MD Oct 24, 2019 11:36
[2019-10-24 12:00] VITALS: BP 129/82
--- NOTE | 2019-10-24 13:26 | Pulmonology Progress Note ---
Subjective ROS Limited/Unobtainable: No Constitutional: Reports: no symptoms HEENT: Repors: no symptoms Respiratory: Reports: no symptoms Hematologic: Reports: no symptoms Musculoskeletal: Reports: no symptoms Allergies: Coded Allergies: SIMVASTATIN (Verified Allergy, Unknown, 07/03/19) Uncoded Allergies: STATINS (Allergy, Unknown, 08/13/19) Objective Last 24 Hour Vital Signs Date Time Temp Pulse Resp B/P (MAP) Pulse Ox O2 Delivery O2 Flow Rate FiO2 10/24/19 12:00 97.9 90 20 129/82 (98) 95 10/24/19 11:32 105 10/24/19 10:38 110 20 96 Nasal Cannula 4.0 36 10/24/19 10:38 96 Nasal Cannula 4.0 36 10/24/19 10:34 115 24 100 Nasal Cannula 4.0 36 110 20 95 10/24/19 09:00 Nasal Cannula 2.0 10/24/19 08:46 111 135/93 10/24/19 08:45 135/93 10/24/19 08:00 97.5 111 22 135/93 (107) 96 10/24/19 07:45 111 10/24/19 04:00 97.7 112 24 126/75 (92) 95 10/24/19 04:00 109 10/24/19 00:00 97.9 109 23 123/84 (97) 98 10/24/19 00:00 113 10/23/19 21:12 115 128/89 10/23/19 21:10 110 20 100 Nasal Cannula 4.0 36 108 21 99 10/23/19 21:00 Nasal Cannula 4.0 10/23/19 20:00 97.7 111 23 117/89 (98) 100 10/23/19 20:00 112 10/23/19 19:42 99 Nasal Cannula 4.0 36 10/23/19 19:42 100 20 99 Nasal Cannula 4.0 36 10/23/19 16:00 96.9 112 24 123/92 (102) 95 10/23/19 16:00 112 Intake and Output 10/23/19 10/24/19 19:00 07:00 Intake Total 600 ml 800 ml Output Total 800 ml 550 ml Balance -200 ml 250 ml Intake Oral 600 ml 800 ml Output Urine Total 800 ml 550 ml General Appearance: WD/WN HEENT: normocephalic, anicteric Respiratory: chest wall non-tender, rhonchi - left, rhonchi - right Cardiovascular: normal peripheral pulses, normal rate Abdomen: normal bowel sounds, soft, non tender Genitourinary: normal external genitalia Extremities: no cyanosis Skin: no rash 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 Lymphatic: no neck adenopathy Laboratory Tests 10/24/19 05:45: White Blood Count 5.8, Red Blood Count 3.37L, Hemoglobin 10.5L, Hematocrit 32.1L , Mean Corpuscular Volume 95, Mean Corpuscular Hemoglobin 31.2H, Mean Corpuscular Hemoglobin Concent 32.6, Red Cell Distribution Width 15.9H, Platelet Count 106L, Mean Platelet Volume 7.5, Neutrophils (%) (Auto) 67.1, Lymphocytes (%) (Auto) 14.6L, Monocytes (%) (Auto) 14.4H, Eosinophils (%) (Auto ) 2.3, Basophils (%) (Auto) 1.6, Sodium Level 138, Potassium Level 4.8, Chloride Level 101, Carbon Dioxide Level 32, Anion Gap 5, Blood Urea Nitrogen 31H, Creatinine 1.6H, Estimat Glomerular Filtration Rate 55.0, Glucose Level 92 , Calcium Level 8.6 Current Medications Medications (Trade) Dose Ordered Sig/Marybeth Route PRN Reason Start Time Stop Time Status Last Admin Dose Admin Acetaminophen (Tylenol) 650 mg Q4H PRN ORAL T>100.5 10/11/19 21:00 11/10/19 20:59 Acetaminophen/ Hydrocodone Bitart ([place] 5/325) 1 tab Q6H PRN ORAL For Pain 10/23/19 23:30 10/30/19 23:29 10/24/19 00:17 Albuterol/ Ipratropium (Albuterol/ Ipratropium) 3 ml Q4H PRN HHN Shortness of Breath 10/20/19 07:15 10/25/19 07:14 10/24/19 10:34 Allopurinol (Zyloprim) 200 mg DAILY ORAL 10/15/19 09:45 11/14/19 09:44 10/24/19 08:45 Apixaban (Eliquis) 5 mg BID ORAL 10/12/19 18:00 01/10/20 17:59 10/24/19 08:46 Carvedilol (Coreg) 6.25 mg EVERY 12 HOURS ORAL 10/11/19 21:00 11/10/19 20:59 10/24/19 08:46 Dextrose (Dextrose 50%) 25 ml Q30M PRN IV Hypoglycemia 10/11/19 21:00 01/09/20 20:59 Dextrose (Dextrose 50%) 50 ml Q30MIN PRN IV Hypoglycemia 10/11/19 21:00 01/09/20 20:59 Diphenhydramine HCl (Benadryl) 25 mg Q6H PRN ORAL Itching 10/23/19 23:30 11/22/19 23:29 10/24/19 00:17 Docusate Sodium (Colace) 100 mg THREE TIMES A DAY ORAL 10/14/19 18:00 11/13/19 17:59 10/24/19 08:47 Ferrous Sulfate (Feosol) 325 mg THREE TIMES A DAY ORAL 10/17/19 21:45 01/15/20 21:44 10/24/19 12:36 Heparin Sodium (Porcine) (Heparin 5000 units/ml) 5,000 units EVERY 12 HOURS SUBQ 10/12/19 09:00 11/26/19 08:59 Lisinopril (ZestriL) 5 mg DAILY ORAL 10/15/19 09:00 11/11/19 08:59 10/24/19 08:45 Metolazone (Zaroxolyn) 5 mg DAILY ORAL 10/23/19 09:00 11/22/19 08:59 10/24/19 08:47 Ondansetron HCl (Zofran) 4 mg Q6H PRN IVP Nausea & Vomiting 10/11/19 21:00 11/10/19 20:59 Pantoprazole (Protonix) 40 mg EVERY 12 HOURS ORAL 10/14/19 13:15 11/13/19 13:14 10/24/19 08:46 Polyethylene Glycol (Miralax) 17 gm DAILYPRN PRN ORAL Constipation 10/11/19 21:00 11/10/19 20:59 Torsemide (Demadex) 40 mg DAILY ORAL 10/23/19 09:00 11/22/19 08:59 10/24/19 08:46 Vitamin A/Vitamin D (A & D Oint) 1 applic PRN PRN TOPIC dryness/itchyness 10/24/19 10:15 11/23/19 10:14 Assessment/Plan Problems: (1) Acute on chronic congestive heart failure (2) Refractory end stage heart failure (3) COPD (chronic obstructive pulmonary disease) (4) Atrial fibrillation, chronic (5) Normocytic anemia (6) Acute on chronic renal insufficiency (7) Thrombocytopenia (8) Pulmonary HTN (9) HTN (hypertension) Assessment/Plan Renal function worsening CT of neck showing anasarca, in /out blance is -8.3 liters still short of breath respiratory treatment Echo showing EF 10-15% titrate fio2 to sat of 92% on Epixiban Palak Mccray MD Oct 24, 2019 13:26
[2019-10-24] MEDS ORDERED: ZAROXOLYN2.5 MG ORAL (13:37)
[2019-10-24] MEDS ORDERED: ALLOPURINOL100 M1 ORAL (13:37)
[2019-10-24] MEDS ORDERED: TORSEMIDE10 MG ORAL (13:37)
--- NOTE | 2019-10-24 13:46 | Nephrology Progress Note ---
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 6 Intravenous iron Optimize cardiac status, per non emergency services ambulance driver's advice Watch and monitor renal parameters Previously: Avoid nephrotoxic's check CEA level, check stool for OB Afterload reduction and parameters for blood pressure medications Per orders Subjective ROS Limited/Unobtainable: No Constitutional: Reports: malaise, weakness Objective Objective Last 24 Hour Vital Signs Date Time Temp Pulse Resp B/P (MAP) Pulse Ox O2 Delivery O2 Flow Rate FiO2 10/24/19 12:00 97.9 90 20 129/82 (98) 95 10/24/19 11:32 105 10/24/19 10:38 110 20 96 Nasal Cannula 4.0 36 10/24/19 10:38 96 Nasal Cannula 4.0 36 10/24/19 10:34 115 24 100 Nasal Cannula 4.0 36 110 20 95 10/24/19 09:00 Nasal Cannula 2.0 10/24/19 08:46 111 135/93 10/24/19 08:45 135/93 10/24/19 08:00 97.5 111 22 135/93 (107) 96 10/24/19 07:45 111 10/24/19 04:00 97.7 112 24 126/75 (92) 95 10/24/19 04:00 109 10/24/19 00:00 97.9 109 23 123/84 (97) 98 10/24/19 00:00 113 10/23/19 21:12 115 128/89 10/23/19 21:10 110 20 100 Nasal Cannula 4.0 36 108 21 99 10/23/19 21:00 Nasal Cannula 4.0 10/23/19 20:00 97.7 111 23 117/89 (98) 100 10/23/19 20:00 112 10/23/19 19:42 99 Nasal Cannula 4.0 36 10/23/19 19:42 100 20 99 Nasal Cannula 4.0 36 10/23/19 16:00 96.9 112 24 123/92 (102) 95 10/23/19 16:00 112 Intake and Output 10/23/19 10/24/19 19:00 07:00 Intake Total 600 ml 800 ml Output Total 800 ml 550 ml Balance -200 ml 250 ml Intake Oral 600 ml 800 ml Output Urine Total 800 ml 550 ml Laboratory Tests 10/24/19 05:45: White Blood Count 5.8, Red Blood Count 3.37L, Hemoglobin 10.5L, Hematocrit 32.1L , Mean Corpuscular Volume 95, Mean Corpuscular Hemoglobin 31.2H, Mean Corpuscular Hemoglobin Concent 32.6, Red Cell Distribution Width 15.9H, Platelet Count 106L, Mean Platelet Volume 7.5, Neutrophils (%) (Auto) 67.1, Lymphocytes (%) (Auto) 14.6L, Monocytes (%) (Auto) 14.4H, Eosinophils (%) (Auto ) 2.3, Basophils (%) (Auto) 1.6, Sodium Level 138, Potassium Level 4.8, Chloride Level 101, Carbon Dioxide Level 32, Anion Gap 5, Blood Urea Nitrogen 31H, Creatinine 1.6H, Estimat Glomerular Filtration Rate 55.0, Glucose Level 92 , Calcium Level 8.6 Height (Feet): 5 Height (Inches): 6.00 Weight (Pounds): 219 General Appearance: no apparent distress, other - Continues to complain of shortness of breath Cardiovascular: tachycardia Respiratory/Chest: decreased breath sounds Abdomen: distended Scout Cody MD Oct 24, 2019 13:46
[2019-10-24 15:57] VITALS: BP 130/80
[2019-10-24] MEDS ORDERED: Miralax 17gm pkt ORAL PRN (17:00)
--- NOTE | 2019-10-24 17:29 | Cardiology Progress Note ---
Assessment/Plan Assessment/Plan 1. Chronic systolic heart failure. 2. No evidence of coronary artery disease by cardiac catheterization at [facility] in 2018. 3. Atrial flutter with 2:1 block. 4. Chronic recurrent chest pains with multiple hospitalizations at [facility] as well as [facility] as well as [facility], at least the ones known of. 5. Nonsustained ventricular tachycardia. 6. History of hypertension. 7. Prediabetes. 8. History of renal insufficiency. 9. Anemia. 10. Chronic schizophrenia. 11. Reported history of Munchausen syndrome. 12. Reported history of malingering. 13. Homelessness. bp seems fine is on on gdmt pt seen and person mel[place] examined tele personally reviewed atrial flutter / sinu tachy with 2:1 block had nsvt over nite on torsemide and metolazone, i/o seem almost even on present meds may need to increase acei alittle entresto may be a better medication for him but not available [place] [facility] [place] not be accurate as bed scale his lv fxn is very poor he will likey be in chf all the time but trying to see if i can make him more comfortable and it may be diffiuclt to tell as he may have secondary gians to stay in house which may affect his responses to my questions low dose dig Subjective Cardiovascular: Reports: chest pain; Denies: lightheadedness Respiratory: Reports: shortness of breath, SOB with excertion Gastrointestinal/Abdominal: Denies: abdominal pain Subjective per rn:enies any pain, no s/sx of acute distress. Pt currently on 2L NC, breathing even, mild SOB noted at rest. PMH Systolic CHF, acute on chronic (HCC) Chest pain Abnormal EKG Cardiomyopathy (HCC) NSVT (nonsustained ventricular tachycardia) (HCC) Chronic venous stasis dermatitis of both lower extremities HTN (hypertension) Acute on chronic congestive heart failure (HCC) Elevated brain natriuretic peptide (BNP) level Acute exacerbation of CHF (congestive heart failure) (HCC) Endocrine/Metabolic Graves disease Thyrotoxicosis Prediabetes Gastrointestinal and Abdominal Acute pancreatitis Genitourinary and Reproductive Renal insufficiency Acute kidney injury (HCC) Hyperkalemia Hematology and Neoplasia Anemia Infectious Diseases Cellulitis of lower extremity Mental Health Chronic schizophrenia (HCC) Munchausen's syndrome Paranoid schizophrenia (HCC) Adjustment disorder with depressed mood Pulmonary and Pneumonias Acute on chronic respiratory failure with hypercapnia Symptoms and Signs Edema extremities Exertional dyspnea Leg swelling Tobacco Smoker Other Homelessness Malingering Objective Last 24 Hour Vital Signs Date Time Temp Pulse Resp B/P (MAP) Pulse Ox O2 Delivery O2 Flow Rate FiO2 10/24/19 16:34 113 10/24/19 15:57 97.5 110 22 130/80 (97) 96 10/24/19 12:00 97.9 90 20 129/82 (98) 95 10/24/19 11:32 105 10/24/19 10:38 110 20 96 Nasal Cannula 4.0 36 10/24/19 10:38 96 Nasal Cannula 4.0 36 10/24/19 10:34 115 24 100 Nasal Cannula 4.0 36 110 20 95 10/24/19 09:00 Nasal Cannula 2.0 10/24/19 08:46 111 135/93 10/24/19 08:45 135/93 10/24/19 08:00 97.5 111 22 135/93 (107) 96 10/24/19 07:45 111 10/24/19 04:00 97.7 112 24 126/75 (92) 95 10/24/19 04:00 109 10/24/19 00:00 97.9 109 23 123/84 (97) 98 10/24/19 00:00 113 10/23/19 21:12 115 128/89 10/23/19 21:10 110 20 100 Nasal Cannula 4.0 36 108 21 99 10/23/19 21:00 Nasal Cannula 4.0 10/23/19 20:00 97.7 111 23 117/89 (98) 100 10/23/19 20:00 112 10/23/19 19:42 99 Nasal Cannula 4.0 36 10/23/19 19:42 100 20 99 Nasal Cannula 4.0 36 General Appearance: no apparent distress, alert Neck: supple Cardiovascular: normal rate Respiratory/Chest: lungs clear Abdomen: non tender, soft Extremities: moderate edema Intake and Output 10/23/19 10/24/19 19:00 07:00 Intake Total 600 ml 800 ml Output Total 800 ml 550 ml Balance -200 ml 250 ml Intake Oral 600 ml 800 ml Output Urine Total 800 ml 550 ml Laboratory Tests Test 10/24/19 05:45 White Blood Count 5.8 K/UL (4.8-10.8) Red Blood Count 3.37 M/UL (4.70-6.10) L Hemoglobin 10.5 G/DL (14.2-18.0) L Hematocrit 32.1 % (42.0-52.0) L Mean Corpuscular Volume 95 FL (80-99) Mean Corpuscular Hemoglobin 31.2 PG (27.0-31.0) H Mean Corpuscular Hemoglobin Concent 32.6 G/DL (32.0-36.0) Red Cell Distribution Width 15.9 % (11.6-14.8) H Platelet Count 106 K/UL (150-450) L Mean Platelet Volume 7.5 FL (6.5-10.1) Neutrophils (%) (Auto) 67.1 % (45.0-75.0) Lymphocytes (%) (Auto) 14.6 % (20.0-45.0) L Monocytes (%) (Auto) 14.4 % (1.0-10.0) H Eosinophils (%) (Auto) 2.3 % (0.0-3.0) Basophils (%) (Auto) 1.6 % (0.0-2.0) Sodium Level 138 MMOL/L (136-145) Potassium Level 4.8 MMOL/L (3.5-5.1) Chloride Level 101 MMOL/L (98-107) Carbon Dioxide Level 32 MMOL/L (21-32) Anion Gap 5 mmol/L (5-15) Blood Urea Nitrogen 31 mg/dL (7-18) H Creatinine 1.6 MG/DL (0.55-1.30) H Estimat Glomerular Filtration Rate 55.0 mL/min (>60) Glucose Level 92 MG/DL (74-106) Calcium Level 8.6 MG/DL (8.5-10.1) Objective per dr kumar LUNGS: nasal canula@4 L O2Good air entry. Decreased air in bases. No wheezing or rhonchi. HEART: S1, S2. Tachycardic. Distant heart sounds. No murmur or gallops. ABDOMEN: Soft, nondistended, nontender. Positive bowel sounds. Morbidly obese. EXTREMITIES: No cyanosis or clubbing. +2 edema bilateral lower extremity Tone Chapman MD Oct 24, 2019 17:29
[2019-10-24] MEDS ORDERED: DiphenhydrAMINE 25mg Tab ORAL PRN (17:30)
[2019-10-24] MEDS ORDERED: HYDROcodone/Acetamin 5/325 tab ORAL PRN (17:30)
[2019-10-24] MEDS ORDERED: Albuterol/Ipratropium 3ml neb HHN PRN (19:15)
[2019-10-24 20:00] VITALS: BP 128/95
[2019-10-25] VITALS: BP 137/94
[2019-10-25 04:00] VITALS: BP 130/88
[2019-10-25 06:52] LABS: ANION GAP 8 mmol/L (5-15); BLOOD UREA NITROGEN 29 mg/dL (7-18); CALCIUM 8.3 MG/DL (8.5-10.1); CARBON DIOXIDE 29 MMOL/L (21-32); CHLORIDE 97 MMOL/L (98-107); CREATININE 1.5 MG/DL (0.55-1.30); POTASSIUM 4.9 MMOL/L (3.5-5.1); SODIUM 134 MMOL/L (136-145)
[2019-10-25 08:00] VITALS: BP 133/87
[2019-10-25] MEDS ORDERED: Lisinopril 2.5mg tab ORAL SCH (09:00)
[2019-10-25] MEDS: Lisinopril 10mg tab ORAL SCH (09:17)
[2019-10-25] MEDS: Docusate 100mg cap ORAL SCH ×3 (09:17→18:00)
[2019-10-25] MEDS: Eliquis 5mg tablet ORAL SCH ×2 (09:18→18:16)
[2019-10-25] MEDS: Allopurinol 100mg Tab ORAL SCH (09:18)
[2019-10-25] MEDS: Carvedilol 6.25mg Tab ORAL SCH ×2 (09:18→20:34)
[2019-10-25] MEDS: Torsemide 10mg tab ORAL SCH (09:19)
[2019-10-25] MEDS: Albuterol/Ipratropium 3ml neb HHN PRN ×2 (09:22→20:52)
[2019-10-25] MEDS: Heparin 5000 units/ml inj SUBQ SCH ×3 (09:23→19:37)
[2019-10-25] MEDS ORDERED: Vitamin A&D Oint Tube TOPIC PRN (10:15)
[2019-10-25 12:00] VITALS: BP 118/88
--- NOTE | 2019-10-25 14:16 | Pulmonology Progress Note ---
Subjective ROS Limited/Unobtainable: No Interval Events: still short of breath Constitutional: Reports: no symptoms HEENT: Repors: no symptoms Respiratory: Reports: no symptoms Hematologic: Reports: no symptoms Musculoskeletal: Reports: no symptoms Allergies: Coded Allergies: SIMVASTATIN (Verified Allergy, Unknown, 07/03/19) Uncoded Allergies: STATINS (Allergy, Unknown, 08/13/19) Objective Last 24 Hour Vital Signs Date Time Temp Pulse Resp B/P (MAP) Pulse Ox O2 Delivery O2 Flow Rate FiO2 10/25/19 12:00 97.9 76 18 118/88 (98) 98 10/25/19 09:32 102 24 100 Nasal Cannula 3.0 32 105 24 97 10/25/19 09:22 105 24 97 Nasal Cannula 32 10/25/19 09:22 97 Nasal Cannula 3.0 32 10/25/19 09:18 104 133/87 10/25/19 09:17 133/87 10/25/19 09:00 Nasal Cannula 1.0 10/25/19 08:00 98.3 104 17 133/87 (102) 97 10/25/19 04:00 97.9 112 22 130/88 (102) 98 10/25/19 00:00 97.7 114 22 137/94 (108) 98 10/24/19 21:00 Nasal Cannula 1.0 10/24/19 20:45 112 128/95 10/24/19 20:12 60 20 100 Nasal Cannula 3.0 32 58 18 99 10/24/19 20:12 99 Nasal Cannula 3.0 32 10/24/19 20:12 58 20 99 Nasal Cannula 3.0 32 10/24/19 20:00 98.3 112 23 128/95 (106) 97 10/24/19 16:34 113 10/24/19 15:57 97.5 110 22 130/80 (97) 96 Intake and Output 10/24/19 10/25/19 19:00 07:00 Intake Total 1120 ml Output Total 600 ml Balance 520 ml Intake Oral 1120 ml Output Urine Total 600 ml # Voids 2 2 General Appearance: WD/WN HEENT: normocephalic, anicteric Respiratory: chest wall non-tender, rhonchi - left, rhonchi - right Cardiovascular: normal peripheral pulses, normal rate Abdomen: normal bowel sounds, soft, non tender Genitourinary: normal external genitalia Extremities: no cyanosis Skin: no rash Neurologic: electro mechanic II-XII grossly normal Lymphatic: no neck adenopathy Laboratory Tests 10/25/19 05:30: Sodium Level 134L, Potassium Level 4.9, Chloride Level 97L, Carbon Dioxide Level 29, Anion Gap 8, Blood Urea Nitrogen 29H, Creatinine 1.5H, Estimat Glomerular Filtration Rate 59.4, Glucose Level 127H, Calcium Level 8.3L, Troponin I 0.042 Current Medications Medications (Trade) Dose Ordered Sig/Marybeth Route PRN Reason Start Time Stop Time Status Last Admin Dose Admin Acetaminophen (Tylenol) 650 mg Q4H PRN ORAL T>100.5 10/24/19 17:00 11/10/19 20:59 Acetaminophen/ Hydrocodone Bitart ([place] 5/325) 1 tab Q6H PRN ORAL For Pain 10/24/19 17:30 10/30/19 23:29 Albuterol/ Ipratropium (Albuterol/ Ipratropium) 3 ml Q4H PRN HHN Shortness of Breath 10/25/19 09:30 10/30/19 09:29 10/25/19 09:22 Allopurinol (Zyloprim) 200 mg DAILY ORAL 10/25/19 09:00 11/14/19 09:44 10/25/19 09:18 Apixaban (Eliquis) 5 mg BID ORAL 10/24/19 18:00 01/10/20 17:59 10/25/19 09:18 Carvedilol (Coreg) 6.25 mg EVERY 12 HOURS ORAL 10/24/19 21:00 11/10/19 20:59 10/25/19 09:18 Dextrose (Dextrose 50%) 25 ml Q30M PRN IV Hypoglycemia 10/24/19 17:00 01/09/20 20:59 Dextrose (Dextrose 50%) 50 ml Q30M PRN IV Hypoglycemia 10/24/19 17:00 01/22/20 16:59 Digoxin (Lanoxin) 0.125 mg 3XW IVP 10/26/19 09:00 01/24/20 08:59 Diphenhydramine HCl (Benadryl) 25 mg Q6H PRN ORAL Itching 10/24/19 17:30 11/22/19 23:29 Docusate Sodium (Colace) 100 mg THREE TIMES A DAY ORAL 10/24/19 18:00 11/13/19 17:59 10/25/19 09:17 Ferrous Sulfate (Feosol) 325 mg THREE TIMES A DAY ORAL 10/24/19 18:00 01/15/20 21:44 10/25/19 12:17 Heparin Sodium (Porcine) (Heparin 5000 units/ml) 5,000 units EVERY 12 HOURS SUBQ 10/24/19 21:00 11/26/19 08:59 Lisinopril (ZestriL) 10 mg DAILY ORAL 10/25/19 09:00 11/24/19 08:59 10/25/19 09:17 Metolazone (Zaroxolyn) 5 mg DAILY ORAL 10/25/19 09:00 11/22/19 08:59 10/25/19 09:17 Ondansetron HCl (Zofran) 4 mg Q6H PRN IVP Nausea & Vomiting 10/24/19 17:00 11/10/19 16:59 Pantoprazole (Protonix) 40 mg EVERY 12 HOURS ORAL 10/24/19 21:00 11/13/19 13:14 10/25/19 09:17 Polyethylene Glycol (Miralax) 17 gm DAILYPRN PRN ORAL Constipation 10/24/19 17:00 11/10/19 16:59 Torsemide (Demadex) 40 mg DAILY ORAL 10/25/19 09:00 11/22/19 08:59 10/25/19 09:19 Vitamin A/Vitamin D (A & D Oint) 1 applic PRN PRN TOPIC dryness/itchyness 10/25/19 10:15 11/23/19 10:14 Assessment/Plan Problems: (1) Acute on chronic congestive heart failure (2) Refractory end stage heart failure (3) COPD (chronic obstructive pulmonary disease) (4) Atrial fibrillation, chronic (5) Normocytic anemia (6) Acute on chronic renal insufficiency (7) Thrombocytopenia (8) Pulmonary HTN (9) HTN (hypertension) Assessment/Plan Renal function worsening CT of neck showing anasarca, in /out blance is -7 liters, probably needs additional 10 liter of diuresis still short of breath respiratory treatment Echo showing EF 10-15% titrate fio2 to sat of 92% on Epixiban Palak Mccray MD Oct 25, 2019 14:16
--- NOTE | 2019-10-25 15:16 | Internal Med Progress Note ---
Subjective Date of Service: Oct 25, 2019 Physician Name Yousif Yoder Attending Physician Neftali Tinsley MD Current Medications Medications (Trade) Dose Ordered Sig/Marybeth Route PRN Reason Start Time Stop Time Status Last Admin Dose Admin Acetaminophen (Tylenol) 650 mg Q4H PRN ORAL T>100.5 10/24/19 17:00 11/10/19 20:59 Acetaminophen/ Hydrocodone Bitart ([place] 5/325) 1 tab Q6H PRN ORAL For Pain 10/24/19 17:30 10/30/19 23:29 Albuterol/ Ipratropium (Albuterol/ Ipratropium) 3 ml Q4H PRN HHN Shortness of Breath 10/25/19 09:30 10/30/19 09:29 10/25/19 09:22 Allopurinol (Zyloprim) 200 mg DAILY ORAL 10/25/19 09:00 11/14/19 09:44 10/25/19 09:18 Apixaban (Eliquis) 5 mg BID ORAL 10/24/19 18:00 01/10/20 17:59 10/25/19 09:18 Carvedilol (Coreg) 6.25 mg EVERY 12 HOURS ORAL 10/24/19 21:00 11/10/19 20:59 10/25/19 09:18 Dextrose (Dextrose 50%) 25 ml Q30M PRN IV Hypoglycemia 10/24/19 17:00 01/09/20 20:59 Dextrose (Dextrose 50%) 50 ml Q30M PRN IV Hypoglycemia 10/24/19 17:00 01/22/20 16:59 Digoxin (Lanoxin) 0.125 mg 3XW IVP 10/26/19 09:00 01/24/20 08:59 Diphenhydramine HCl (Benadryl) 25 mg Q6H PRN ORAL Itching 10/24/19 17:30 11/22/19 23:29 Docusate Sodium (Colace) 100 mg THREE TIMES A DAY ORAL 10/24/19 18:00 11/13/19 17:59 10/25/19 09:17 Ferrous Sulfate (Feosol) 325 mg THREE TIMES A DAY ORAL 10/24/19 18:00 01/15/20 21:44 10/25/19 12:17 Heparin Sodium (Porcine) (Heparin 5000 units/ml) 5,000 units EVERY 12 HOURS SUBQ 10/24/19 21:00 11/26/19 08:59 Lisinopril (ZestriL) 10 mg DAILY ORAL 10/25/19 09:00 11/24/19 08:59 10/25/19 09:17 Metolazone (Zaroxolyn) 5 mg DAILY ORAL 10/25/19 09:00 11/22/19 08:59 10/25/19 09:17 Ondansetron HCl (Zofran) 4 mg Q6H PRN IVP Nausea & Vomiting 10/24/19 17:00 11/10/19 16:59 Pantoprazole (Protonix) 40 mg EVERY 12 HOURS ORAL 10/24/19 21:00 11/13/19 13:14 10/25/19 09:17 Polyethylene Glycol (Miralax) 17 gm DAILYPRN PRN ORAL Constipation 10/24/19 17:00 11/10/19 16:59 Torsemide (Demadex) 40 mg DAILY ORAL 10/25/19 09:00 11/22/19 08:59 10/25/19 09:19 Vitamin A/Vitamin D (A & D Oint) 1 applic PRN PRN TOPIC dryness/itchyness 10/25/19 10:15 11/23/19 10:14 Allergies: Coded Allergies: SIMVASTATIN (Verified Allergy, Unknown, 07/03/19) Uncoded Allergies: STATINS (Allergy, Unknown, 08/13/19) ROS Limited/Unobtainable: No Constitutional: Reports: no symptoms HEENT: Reports: no symptoms Cardiovascular: Reports: chest pain Respiratory: Reports: shortness of breath Gastrointestinal/Abdominal: Reports: no symptoms Genitourinary: Reports: no symptoms Neurologic/Psychiatric: Reports: no symptoms Subjective 54 YO M admitted with shortness of breath. Now Acute on chronic congestive heart failure. Cover for Int Neal-Dr Tinsley. Continues to C/O Shortness of breath Objective Last Vital Signs Date Time Temp Pulse Resp B/P (MAP) Pulse Ox O2 Delivery O2 Flow Rate FiO2 10/25/19 12:00 97.9 76 18 118/88 (98) 98 10/25/19 09:32 Nasal Cannula 3.0 32 Laboratory Tests Test 10/25/19 05:30 Sodium Level 134 MMOL/L (136-145) L Potassium Level 4.9 MMOL/L (3.5-5.1) Chloride Level 97 MMOL/L (98-107) L Carbon Dioxide Level 29 MMOL/L (21-32) Anion Gap 8 mmol/L (5-15) Blood Urea Nitrogen 29 mg/dL (7-18) H Creatinine 1.5 MG/DL (0.55-1.30) H Estimat Glomerular Filtration Rate 59.4 mL/min (>60) Glucose Level 127 MG/DL (74-106) H Calcium Level 8.3 MG/DL (8.5-10.1) L Troponin I 0.042 ng/mL (0.000-0.056) Intake and Output 10/24/19 10/25/19 19:00 07:00 Intake Total 1120 ml Output Total 600 ml Balance 520 ml Intake Oral 1120 ml Output Urine Total 600 ml # Voids 2 2 Objective PHYSICAL EXAMINATION: GENERAL: Patient is awake and responsive. No acute distress. HEAD AND NECK: Pupils are equal and reactive to light. Extraocular movements are intact. Neck was supple. Positive JVD. LUNGS: nasal canula@4 L O2Good air entry. Decreased air in bases. No wheezing or rhonchi. HEART: S1, S2. Tachycardic. Distant heart sounds. No murmur or gallops. ABDOMEN: Soft, nondistended, nontender. Positive bowel sounds. Morbidly obese. GENITOURINARY: Noted scrotal edema. No tenderness. No erythema. EXTREMITIES: No cyanosis or clubbing. +2 edema bilateral lower extremity with hyperpigmentation around both lower extremities. NEUROLOGIC: Cranial nerves II through XII grossly intact. Motor is 5/5 in all extremities. Gait was not assessed due to patient's status. RECTAL: Exam refused and deferred. PSYCHIATRIC: Mood and affect is calm and relaxed at this time, but he has history of schizophrenia. Assessment/Plan Assessment/Plan ASSESSMENT: 1. Acute CHF exacerbation on chronic with mild pulmonary edema and fluid overload. LVEF=10-15% 2. Hypertension. 3. Morbid obesity. 4. Atrial flutter. 5. History of paranoid schizophrenia and malingering. 6. History of Graves disease. 7. Prediabetic. 8. History of lower extremity chronic edema. 9. Anemia. 10. Chronic kidney disease. 11. Discharge planning PLAN: 1. Admit patient to monitored unit. 2. Dr. Tone Chapman = Cardiology consult 3. Dr. Mccray=Pulmonary Critical Care. 4. On lasix and metolazone. 5. Code status is Full Code. 6. DVT prophylaxis=Eliquis. Yousif Yoder MD Oct 25, 2019 15:16
[2019-10-25 16:00] VITALS: BP 122/72
--- NOTE | 2019-10-25 19:40 | Cardiology Progress Note ---
Assessment/Plan Assessment/Plan 1. Chronic systolic heart failure. 2. No evidence of coronary artery disease by cardiac catheterization at [facility] in 2018. 3. Atrial flutter with 2:1 block. 4. Chronic recurrent chest pains with multiple hospitalizations at [facility] as well as [facility] as well as [facility], at least the ones known of. 5. Nonsustained ventricular tachycardia. 6. History of hypertension. 7. Prediabetes. 8. History of renal insufficiency. 9. Anemia. 10. Chronic schizophrenia. 11. Reported history of Munchausen syndrome. 12. Reported history of malingering. 13. Homelessness. bp seems fine is on on gdmt pt seen and person melbay examined on torsemide and metolazone, i/o seem almost even on present meds may need to increase acei alittle entresto may be a better medication for him but not available here [place] [facility] [place] his lv fxn is very poor he will likey be in chf all the time but trying to see if i can make him more comfortable and it may be diffiuclt to tell as he may have secondary gians to stay in house which may affect his responses to my questions low dose dig he has 2 large bottel of water at his bedside but does not want to be on fludi restriction 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 [employer] [pt non comaplinat and homeless does nto want to go to snf as will otherwise nto recieve his check they feel pt going on a curicit of hosptial to have a place to stay and eat no matthews in meds athis time Subjective Cardiovascular: Reports: chest pain - chronic as ususl ; Denies: lightheadedness Respiratory: Reports: shortness of breath - as usull Gastrointestinal/Abdominal: Denies: abdominal pain Genitourinary: Denies: burning Subjective PMH Systolic CHF, acute on chronic (HCC) Chest pain Abnormal EKG Cardiomyopathy (HCC) NSVT (nonsustained ventricular tachycardia) (HCC) Chronic venous stasis dermatitis of both lower extremities HTN (hypertension) Acute on chronic congestive heart failure (HCC) Elevated brain natriuretic peptide (BNP) level Acute exacerbation of CHF (congestive heart failure) (HCC) Endocrine/Metabolic Graves disease Thyrotoxicosis Prediabetes Gastrointestinal and Abdominal Acute pancreatitis Genitourinary and Reproductive Renal insufficiency Acute kidney injury (HCC) Hyperkalemia Hematology and Neoplasia Anemia Infectious Diseases Cellulitis of lower extremity Mental Health Chronic schizophrenia (HCC) Munchausen's syndrome Paranoid schizophrenia (HCC) Adjustment disorder with depressed mood Pulmonary and Pneumonias Acute on chronic respiratory failure with hypercapnia Symptoms and Signs Edema extremities Exertional dyspnea Leg swelling Tobacco Smoker Other Homelessness Malingering Objective Last 24 Hour Vital Signs Date Time Temp Pulse Resp B/P (MAP) Pulse Ox O2 Delivery O2 Flow Rate FiO2 10/25/19 16:00 98.0 89 18 122/72 (89) 98 10/25/19 12:00 97.9 76 18 118/88 (98) 98 10/25/19 09:32 102 24 100 Nasal Cannula 3.0 32 105 24 97 10/25/19 09:22 105 24 97 Nasal Cannula 32 10/25/19 09:22 97 Nasal Cannula 3.0 32 10/25/19 09:18 104 133/87 10/25/19 09:17 133/87 10/25/19 09:00 Nasal Cannula 1.0 10/25/19 08:00 98.3 104 17 133/87 (102) 97 10/25/19 04:00 97.9 112 22 130/88 (102) 98 10/25/19 00:00 97.7 114 22 137/94 (108) 98 10/24/19 21:00 Nasal Cannula 1.0 10/24/19 20:45 112 128/95 10/24/19 20:12 60 20 100 Nasal Cannula 3.0 32 58 18 99 10/24/19 20:12 99 Nasal Cannula 3.0 32 10/24/19 20:12 58 20 99 Nasal Cannula 3.0 32 10/24/19 20:00 98.3 112 23 128/95 (106) 97 General Appearance: no apparent distress, alert Cardiovascular: normal rate Respiratory/Chest: lungs clear Abdomen: normal bowel sounds, non tender, soft Extremities: severe edema Intake and Output 10/24/19 10/25/19 18:59 06:59 Intake Total 1120 ml Output Total 600 ml Balance 520 ml Intake Oral 1120 ml Output Urine Total 600 ml # Voids 2 2 Laboratory Tests Test 10/25/19 05:30 Sodium Level 134 MMOL/L (136-145) L Potassium Level 4.9 MMOL/L (3.5-5.1) Chloride Level 97 MMOL/L (98-107) L Carbon Dioxide Level 29 MMOL/L (21-32) Anion Gap 8 mmol/L (5-15) Blood Urea Nitrogen 29 mg/dL (7-18) H Creatinine 1.5 MG/DL (0.55-1.30) H Estimat Glomerular Filtration Rate 59.4 mL/min (>60) Glucose Level 127 MG/DL (74-106) H Calcium Level 8.3 MG/DL (8.5-10.1) L Troponin I 0.042 ng/mL (0.000-0.056) Objective per dr kumar LUNGS: nasal canula@4 L O2Good air entry. Decreased air in bases. No wheezing or rhonchi. HEART: S1, S2. Tachycardic. Distant heart sounds. No murmur or gallops. ABDOMEN: Soft, nondistended, nontender. Positive bowel sounds. Morbidly obese. EXTREMITIES: No cyanosis or clubbing. +2 edema bilateral lower extremity Tone Chapman MD Oct 25, 2019 19:40
[2019-10-25 20:00] VITALS: BP 117/83
[2019-10-26] VITALS: BP 122/91
[2019-10-26 04:00] VITALS: BP 124/80
[2019-10-26 08:00] VITALS: BP 137/90
[2019-10-26] MEDS: Albuterol/Ipratropium 3ml neb HHN PRN ×2 (08:32→19:03)
[2019-10-26] MEDS: Docusate 100mg cap ORAL SCH ×4 (08:35→18:00)
[2019-10-26] MEDS: Allopurinol 100mg Tab ORAL SCH (08:38)
[2019-10-26] MEDS: Carvedilol 6.25mg Tab ORAL SCH (08:39)
[2019-10-26] MEDS: Lisinopril 10mg tab ORAL SCH (08:39)
[2019-10-26] MEDS: Torsemide 10mg tab ORAL SCH (08:39)
[2019-10-26] MEDS: Eliquis 5mg tablet ORAL SCH (08:40)
[2019-10-26] MEDS: Heparin 5000 units/ml inj SUBQ SCH (08:41)
[2019-10-26] MEDS ORDERED: Digoxin 0.5mg/2ml Inj IVP SCH (09:00)
[2019-10-26 09:11] LABS: BASOPHILS % (AUTO) 1.4 % (0.0-2.0); HEMOGLOBIN 10.6 G/DL (14.2-18.0); LYMPHOCYTES % (AUTO) 12.7 % (20.0-45.0); MEAN CORPUSCULAR VOLUME 95 FL (80-99); MONOCYTES % (AUTO) 10.1 % (1.0-10.0); NEUTROPHILS % (AUTO) 74.7 % (45.0-75.0); PLATELET COUNT 102 K/UL (150-450); RED BLOOD COUNT 3.38 M/UL (4.70-6.10); RED CELL DISTRIBUTION WIDTH 15.4 % (11.6-14.8); WHITE BLOOD COUNT 6.8 K/UL (4.8-10.8)
[2019-10-26 09:42] LABS: ALANINE AMINOTRANSFERASE 20 U/L (12-78); ALBUMIN 3.4 G/DL (3.4-5.0); ALBUMIN/GLOBULIN RATIO 0.9 (1.0-2.7); ALKALINE PHOSPHATASE 86 U/L (46-116); ANION GAP 8 mmol/L (5-15); ASPARTATE AMINO TRANSFERASE 44 U/L (15-37); BLOOD UREA NITROGEN 28 mg/dL (7-18); CALCIUM 8.6 MG/DL (8.5-10.1); CARBON DIOXIDE 29 MMOL/L (21-32); CHLORIDE 99 MMOL/L (98-107); CREATININE 1.6 MG/DL (0.55-1.30); POTASSIUM 4.7 MMOL/L (3.5-5.1); SODIUM 136 MMOL/L (136-145)
--- NOTE | 2019-10-26 10:13 | Diagnostic Imaging Report ---
Indication: Dyspnea Technique: One view of the chest Comparison: 10/22/2019 Findings: The heart is massively enlarged. Pleural fluid on the right is unchanged. There is minimal interstitial congestion again demonstrated Impression: Unchanged, over 4 days, findings as above.
[2019-10-26 12:00] VITALS: BP 129/96
--- NOTE | 2019-10-26 13:21 | Nephrology Progress Note ---
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 6 Intravenous iron Optimize cardiac status, per hostler helper's advice Watch and monitor renal parameters Previously: Avoid nephrotoxic's check CEA level, check stool for OB Afterload reduction and parameters for blood pressure medications Per orders Subjective ROS Limited/Unobtainable: No Constitutional: Reports: malaise, weakness Objective Objective Last 24 Hour Vital Signs Date Time Temp Pulse Resp B/P (MAP) Pulse Ox O2 Delivery O2 Flow Rate FiO2 10/26/19 12:00 98.0 107 22 129/96 (107) 94 10/26/19 09:00 Nasal Cannula 3.0 10/26/19 08:39 137/90 10/26/19 08:39 111 137/90 10/26/19 08:00 98.2 111 22 137/90 (106) 95 10/26/19 04:00 98.2 115 22 124/80 (95) 92 10/26/19 00:00 97.9 114 20 122/91 (101) 99 10/25/19 21:00 Nasal Cannula 3.0 10/25/19 20:53 101 22 100 Nasal Cannula 3.0 32 101 20 98 10/25/19 20:52 101 20 98 Nasal Cannula 3.0 32 10/25/19 20:52 98 Nasal Cannula 3.0 32 10/25/19 20:34 113 117/88 10/25/19 20:00 97.7 113 21 117/83 (94) 92 10/25/19 16:00 98.0 89 18 122/72 (89) 98 Intake and Output 10/25/19 10/26/19 19:00 07:00 Intake Total 600 ml 400 ml Output Total 600 ml Balance 600 ml -200 ml Other 600 ml 400 ml Output Urine Total 600 ml # Bowel Movements 1 Laboratory Tests 10/26/19 08:45: White Blood Count 6.8, Red Blood Count 3.38L, Hemoglobin 10.6L, Hematocrit 32.0L , Mean Corpuscular Volume 95, Mean Corpuscular Hemoglobin 31.5H, Mean Corpuscular Hemoglobin Concent 33.3, Red Cell Distribution Width 15.4H, Platelet Count 102L, Mean Platelet Volume 8.1, Neutrophils (%) (Auto) 74.7, Lymphocytes (%) (Auto) 12.7L, Monocytes (%) (Auto) 10.1H, Eosinophils (%) (Auto ) 1.0, Basophils (%) (Auto) 1.4, Sodium Level 136, Potassium Level 4.7, Chloride Level 99, Carbon Dioxide Level 29, Anion Gap 8, Blood Urea Nitrogen 28H , Creatinine 1.6H, Estimat Glomerular Filtration Rate 55.0, Glucose Level 102, Calcium Level 8.6, Total Bilirubin 1.0, Aspartate Amino Transf (AST/SGOT) 44H, Alanine Aminotransferase (ALT/SGPT) 20, Alkaline Phosphatase 86, Pro-B-Type Natriuretic Peptide 5607H, Total Protein 7.2, Albumin 3.4, Globulin 3.8, Albumin /Globulin Ratio 0.9L Height (Feet): 5 Height (Inches): 6.00 Weight (Pounds): 229 General Appearance: no apparent distress Cardiovascular: tachycardia Respiratory/Chest: decreased breath sounds Abdomen: soft Scout Cody MD Oct 26, 2019 13:21
--- NOTE | 2019-10-26 15:08 | Pulmonology Progress Note ---
Subjective ROS Limited/Unobtainable: No Interval Events: still short of breath Constitutional: Reports: no symptoms HEENT: Repors: no symptoms Respiratory: Reports: no symptoms Hematologic: Reports: no symptoms Musculoskeletal: Reports: no symptoms Allergies: Coded Allergies: SIMVASTATIN (Verified Allergy, Unknown, 07/03/19) Uncoded Allergies: STATINS (Allergy, Unknown, 08/13/19) Objective Last 24 Hour Vital Signs Date Time Temp Pulse Resp B/P (MAP) Pulse Ox O2 Delivery O2 Flow Rate FiO2 10/26/19 12:00 98.0 107 22 129/96 (107) 94 10/26/19 09:00 Nasal Cannula 3.0 10/26/19 08:39 137/90 10/26/19 08:39 111 137/90 10/26/19 08:00 98.2 111 22 137/90 (106) 95 10/26/19 04:00 98.2 115 22 124/80 (95) 92 10/26/19 00:00 97.9 114 20 122/91 (101) 99 10/25/19 21:00 Nasal Cannula 3.0 10/25/19 20:53 101 22 100 Nasal Cannula 3.0 32 101 20 98 10/25/19 20:52 101 20 98 Nasal Cannula 3.0 32 10/25/19 20:52 98 Nasal Cannula 3.0 32 10/25/19 20:34 113 117/88 10/25/19 20:00 97.7 113 21 117/83 (94) 92 10/25/19 16:00 98.0 89 18 122/72 (89) 98 Intake and Output 10/25/19 10/26/19 19:00 07:00 Intake Total 600 ml 400 ml Output Total 600 ml Balance 600 ml -200 ml Other 600 ml 400 ml Output Urine Total 600 ml # Bowel Movements 1 General Appearance: WD/WN HEENT: normocephalic, anicteric Respiratory: chest wall non-tender, rhonchi - left, rhonchi - right Cardiovascular: normal peripheral pulses, normal rate Abdomen: normal bowel sounds, soft, non tender Genitourinary: normal external genitalia Extremities: no cyanosis Skin: no rash Neurologic: charge master analyst II-XII grossly normal Lymphatic: no neck adenopathy Laboratory Tests 10/26/19 08:45: White Blood Count 6.8, Red Blood Count 3.38L, Hemoglobin 10.6L, Hematocrit 32.0L , Mean Corpuscular Volume 95, Mean Corpuscular Hemoglobin 31.5H, Mean Corpuscular Hemoglobin Concent 33.3, Red Cell Distribution Width 15.4H, Platelet Count 102L, Mean Platelet Volume 8.1, Neutrophils (%) (Auto) 74.7, Lymphocytes (%) (Auto) 12.7L, Monocytes (%) (Auto) 10.1H, Eosinophils (%) (Auto ) 1.0, Basophils (%) (Auto) 1.4, Sodium Level 136, Potassium Level 4.7, Chloride Level 99, Carbon Dioxide Level 29, Anion Gap 8, Blood Urea Nitrogen 28H , Creatinine 1.6H, Estimat Glomerular Filtration Rate 55.0, Glucose Level 102, Calcium Level 8.6, Total Bilirubin 1.0, Aspartate Amino Transf (AST/SGOT) 44H, Alanine Aminotransferase (ALT/SGPT) 20, Alkaline Phosphatase 86, Pro-B-Type Natriuretic Peptide 5607H, Total Protein 7.2, Albumin 3.4, Globulin 3.8, Albumin /Globulin Ratio 0.9L Current Medications Medications (Trade) Dose Ordered Sig/Marybeth Route PRN Reason Start Time Stop Time Status Last Admin Dose Admin Acetaminophen (Tylenol) 650 mg Q4H PRN ORAL T>100.5 10/24/19 17:00 11/10/19 20:59 10/26/19 11:44 Acetaminophen/ Hydrocodone Bitart ([place] 5/325) 1 tab Q6H PRN ORAL For Pain 10/24/19 17:30 10/30/19 23:29 Albuterol/ Ipratropium (Albuterol/ Ipratropium) 3 ml Q4H PRN HHN Shortness of Breath 10/25/19 09:30 10/30/19 09:29 10/26/19 08:32 Allopurinol (Zyloprim) 200 mg DAILY ORAL 10/25/19 09:00 11/14/19 09:44 10/26/19 08:38 Apixaban (Eliquis) 5 mg BID ORAL 10/24/19 18:00 01/10/20 17:59 10/25/19 18:16 Carvedilol (Coreg) 6.25 mg EVERY 12 HOURS ORAL 10/24/19 21:00 11/10/19 20:59 10/26/19 08:39 Dextrose (Dextrose 50%) 25 ml Q30M PRN IV Hypoglycemia 10/24/19 17:00 01/09/20 20:59 Dextrose (Dextrose 50%) 50 ml Q30M PRN IV Hypoglycemia 10/24/19 17:00 01/22/20 16:59 Diphenhydramine HCl (Benadryl) 25 mg Q6H PRN ORAL Itching 10/24/19 17:30 11/22/19 23:29 10/26/19 11:43 Docusate Sodium (Colace) 100 mg THREE TIMES A DAY ORAL 10/24/19 18:00 11/13/19 17:59 10/25/19 09:17 Ferrous Sulfate (Feosol) 325 mg THREE TIMES A DAY ORAL 10/24/19 18:00 01/15/20 21:44 10/26/19 13:05 Heparin Sodium (Porcine) (Heparin 5000 units/ml) 5,000 units EVERY 12 HOURS SUBQ 10/24/19 21:00 11/26/19 08:59 Lisinopril (ZestriL) 10 mg DAILY ORAL 10/25/19 09:00 11/24/19 08:59 10/26/19 08:39 Metolazone (Zaroxolyn) 5 mg DAILY ORAL 10/25/19 09:00 11/22/19 08:59 10/26/19 08:39 Ondansetron HCl (Zofran) 4 mg Q6H PRN IVP Nausea & Vomiting 10/24/19 17:00 11/10/19 16:59 Pantoprazole (Protonix) 40 mg EVERY 12 HOURS ORAL 10/24/19 21:00 11/13/19 13:14 10/26/19 08:40 Polyethylene Glycol (Miralax) 17 gm DAILYPRN PRN ORAL Constipation 10/24/19 17:00 11/10/19 16:59 Torsemide (Demadex) 40 mg DAILY ORAL 10/25/19 09:00 11/22/19 08:59 10/26/19 08:39 Vitamin A/Vitamin D (A & D Oint) 1 applic PRN PRN TOPIC dryness/itchyness 10/25/19 10:15 11/23/19 10:14 Assessment/Plan Problems: (1) Acute on chronic congestive heart failure (2) Refractory end stage heart failure (3) COPD (chronic obstructive pulmonary disease) (4) Atrial fibrillation, chronic (5) Normocytic anemia (6) Acute on chronic renal insufficiency (7) Thrombocytopenia (8) Pulmonary HTN (9) HTN (hypertension) Assessment/Plan Renal function worsening CT of neck showing anasarca, in /out blance is -7 liters, probably needs additional 10 liter of diuresis still short of breath respiratory treatment Echo showing EF 10-15% titrate fio2 to sat of 92% on Epixiban Pt needs to be either on comfort care and hospice or on a transplant list transfer to [facility] as recommended by dr Chapman. Palak Mccray MD Oct 26, 2019 15:08
[2019-10-26] MEDS ORDERED: LORazepam Inj 2mg/ml 1ml IV SCH (15:40)
[2019-10-26 16:00] VITALS: BP 122/89
--- NOTE | 2019-10-26 16:18 | Internal Med Progress Note ---
Subjective Physician Name Neftali Tinsley Attending Physician Neftali Tinsley MD Current Medications Medications (Trade) Dose Ordered Sig/Marybeth Route PRN Reason Start Time Stop Time Status Last Admin Dose Admin Acetaminophen (Tylenol) 650 mg Q4H PRN ORAL T>100.5 10/24/19 17:00 11/10/19 20:59 10/26/19 11:44 Acetaminophen/ Hydrocodone Bitart ([place] 5/325) 1 tab Q6H PRN ORAL For Pain 10/24/19 17:30 10/30/19 23:29 Albuterol/ Ipratropium (Albuterol/ Ipratropium) 3 ml Q4H PRN HHN Shortness of Breath 10/25/19 09:30 10/30/19 09:29 10/26/19 08:32 Allopurinol (Zyloprim) 200 mg DAILY ORAL 10/25/19 09:00 11/14/19 09:44 10/26/19 08:38 Apixaban (Eliquis) 5 mg BID ORAL 10/26/19 18:00 01/10/20 17:59 Carvedilol (Coreg) 6.25 mg EVERY 12 HOURS ORAL 10/24/19 21:00 11/10/19 20:59 10/26/19 08:39 Dextrose (Dextrose 50%) 25 ml Q30M PRN IV Hypoglycemia 10/24/19 17:00 01/09/20 20:59 Dextrose (Dextrose 50%) 50 ml Q30M PRN IV Hypoglycemia 10/24/19 17:00 01/22/20 16:59 Diphenhydramine HCl (Benadryl) 25 mg Q6H PRN ORAL Itching 10/24/19 17:30 11/22/19 23:29 10/26/19 11:43 Docusate Sodium (Colace) 100 mg THREE TIMES A DAY ORAL 10/24/19 18:00 11/13/19 17:59 10/25/19 09:17 Ferrous Sulfate (Feosol) 325 mg THREE TIMES A DAY ORAL 10/24/19 18:00 01/15/20 21:44 10/26/19 13:05 Heparin Sodium (Porcine) (Heparin 5000 units/ml) 5,000 units EVERY 12 HOURS SUBQ 10/24/19 21:00 11/26/19 08:59 Lisinopril (ZestriL) 10 mg DAILY ORAL 10/25/19 09:00 11/24/19 08:59 10/26/19 08:39 Metolazone (Zaroxolyn) 5 mg DAILY ORAL 10/25/19 09:00 11/22/19 08:59 10/26/19 08:39 Ondansetron HCl (Zofran) 4 mg Q6H PRN IVP Nausea & Vomiting 10/26/19 15:45 11/25/19 15:44 Pantoprazole (Protonix) 40 mg EVERY 12 HOURS ORAL 10/24/19 21:00 11/13/19 13:14 10/26/19 08:40 Polyethylene Glycol (Miralax) 17 gm DAILYPRN PRN ORAL Constipation 10/24/19 17:00 11/10/19 16:59 Torsemide (Demadex) 40 mg DAILY ORAL 10/25/19 09:00 11/22/19 08:59 10/26/19 08:39 Vitamin A/Vitamin D (A & D Oint) 1 applic PRN PRN TOPIC dryness/itchyness 10/25/19 10:15 11/23/19 10:14 Allergies: Coded Allergies: SIMVASTATIN (Verified Allergy, Unknown, 07/03/19) Uncoded Allergies: STATINS (Allergy, Unknown, 08/13/19) Subjective awake, alert, responsive, less SOB and CP, less leg edema, No N / V eating up at the bedside Objective Last Vital Signs Date Time Temp Pulse Resp B/P (MAP) Pulse Ox O2 Delivery O2 Flow Rate FiO2 10/26/19 12:00 98.0 107 22 129/96 (107) 94 10/26/19 09:00 Nasal Cannula 3.0 10/25/19 20:53 32 Laboratory Tests Test 10/26/19 08:45 White Blood Count 6.8 K/UL (4.8-10.8) Red Blood Count 3.38 M/UL (4.70-6.10) L Hemoglobin 10.6 G/DL (14.2-18.0) L Hematocrit 32.0 % (42.0-52.0) L Mean Corpuscular Volume 95 FL (80-99) Mean Corpuscular Hemoglobin 31.5 PG (27.0-31.0) H Mean Corpuscular Hemoglobin Concent 33.3 G/DL (32.0-36.0) Red Cell Distribution Width 15.4 % (11.6-14.8) H Platelet Count 102 K/UL (150-450) L Mean Platelet Volume 8.1 FL (6.5-10.1) Neutrophils (%) (Auto) 74.7 % (45.0-75.0) Lymphocytes (%) (Auto) 12.7 % (20.0-45.0) L Monocytes (%) (Auto) 10.1 % (1.0-10.0) H Eosinophils (%) (Auto) 1.0 % (0.0-3.0) Basophils (%) (Auto) 1.4 % (0.0-2.0) Sodium Level 136 MMOL/L (136-145) Potassium Level 4.7 MMOL/L (3.5-5.1) Chloride Level 99 MMOL/L (98-107) Carbon Dioxide Level 29 MMOL/L (21-32) Anion Gap 8 mmol/L (5-15) Blood Urea Nitrogen 28 mg/dL (7-18) H Creatinine 1.6 MG/DL (0.55-1.30) H Estimat Glomerular Filtration Rate 55.0 mL/min (>60) Glucose Level 102 MG/DL (74-106) Calcium Level 8.6 MG/DL (8.5-10.1) Total Bilirubin 1.0 MG/DL (0.2-1.0) Aspartate Amino Transf (AST/SGOT) 44 U/L (15-37) H Alanine Aminotransferase (ALT/SGPT) 20 U/L (12-78) Alkaline Phosphatase 86 U/L (46-116) Pro-B-Type Natriuretic Peptide 5607 pg/mL (0-125) H Total Protein 7.2 G/DL (6.4-8.2) Albumin 3.4 G/DL (3.4-5.0) Globulin 3.8 g/dL Albumin/Globulin Ratio 0.9 (1.0-2.7) L Intake and Output 10/25/19 10/26/19 19:00 07:00 Intake Total 600 ml 400 ml Output Total 600 ml Balance 600 ml -200 ml Other 600 ml 400 ml Output Urine Total 600 ml # Bowel Movements 1 Objective General: No acute distress, awake and alert HEENT: NCAT, sclera anicteric, PERRL, EOMI. Neck: Supple, no significant jugular venous distention, Lungs: Fair inspiratory effort, decrease air at bases, no Wheeze or Rales. Heart: Regular rate and rhythm, normal S1/S2, no murmurs Abdomen: soft, nontender, nondistended. Normoactive bowel sounds. / Rectal: Refused and deferred. Extremities: No Cyanosis , clubbing +2 Leg edema. Neuro: A&O x 3, Able to move all extremities Skin: warm, no rash. Psych: Normal mood and affect Assessment/Plan Assessment/Plan ASSESSMENT: 1. Acute CHF exacerbation on chronic with mild pulmonary edema and fluid overload. LVEF=10-15% 2. Hypertension. 3. Morbid obesity. 4. Atrial flutter. 5. History of paranoid schizophrenia and malingering. 6. History of Graves disease. 7. Prediabetic. 8. History of lower extremity chronic edema. 9. Anemia. 10. Chronic kidney disease. PLAN: 1. In monitored unit. 2. Dr. Tone Chapman = Cardiology consult 3. Dr. Mccray=Pulmonary Critical Care. 4. Lasix IV 40 mg twice a day. 5. Code status is Full Code. 6. DVT prophylaxis=Eliquis. 7. DC planning soon, advised the patient to follow-up with [facility] cardiology clinic within 1 week. Neftali Tinsley MD Oct 26, 2019 16:18
[2019-10-26] MEDS ORDERED: Eliquis 5mg tablet ORAL SCH (18:00)
--- NOTE | 2019-10-28 22:35 | Discharge Summary ---
Discharge Summary Discharge Summary _ DATE OF ADMISSION: 10/11/2019 DATE OF DISCHARGE: 10/26/2019 DISCHARGED BY: Dr. Neftali Tinsley CONSULTANTS: Dr. Palak Chapman BRIEF HOSPITAL COURSE: Patient is an unfortunate 54-year-old -Mex[place] gentleman with past medical history significant for morbid obesity, CHF with reduced ejection fraction, Graves' disease, anemia, and cardiomyopathy, who presented to the hospital after recently being discharged from [facility] due to shortness of breath and leg edema. He was discharged 2 hours prior and was sitting outside on the bench when he had mild diffuse chest discomfort. He also had scrotal and leg edema. He had a recent COVID-19 testing done at [facility] that was negative. He denied any fever, chills, nausea, vomiting, however, had shortness of breath and nonproductive cough. On evaluation at ED, BP was 4235. Troponin was 0.046. Chest x-ray was noted to be vascular congestion, hazy density in the right lung base, massive cardiomegaly. Shortly after initial evaluation in the emergency department, he was admitted for acute on chronic CHF with fluid overload, chest congestion and pulmonary edema. He was then admitted to telemetry. He was started on Lasix IV twice daily. He was given Eliquis for DVT prophylaxis. He was evaluated by procurement representative. On review of records from [facility], patient had cardiac catheterization in [address] Holcomb and catheterization showed left main to be normal, LAD normal, circumflex was normal , RCA was nondominant, and he had no significant obstructive disease. He had a history of cardiomyopathy with ejection fraction in the 20s. Patient EKG showed atrial flutter with 2:1 block and in direct comparison with [facility] EKG, findings were present before. He was placed on anticoagulation with Eliquis. He was continued on digoxin and Coreg. He had numerous stress test done at [facility] that were negative. No evidence of prior ischemia at [facility]. He was recommended sodium and fluid restriction for CHF. He had an echocardiogram that showed EF 10 to 15%, mild to moderate mitral regurgitation and moderate pulmonary hypertension. He was continued on antiplatelet therapy with aspirin. He was continued on guideline directed medical therapy for CHF. Lasix dose was decreased due to worsening creatinine. Abdominal ultrasound showed mild hepatomegaly with liver contour suggestive of cirrhosis. Negative for hydronephrosis. Patient likely with renal failure secondary to cardiomyopathy and cardiorenal syndrome. Anemia work-up showed iron panel suggestive of iron deficiency anemia. He was given IV Venofer. Patient had been responding well to IV diuretics however lost IV access and refused reinsertion. Lasix was then switched to p.o. Metolazone was added. Goal was to keep a negative fluid balance. Creatinine levels improved. He complained of persistent shortness of breath. He had serial chest x-ray. Venous duplex was negative for acute DVT. Chest x- ray on 10/23/2019 showed increasing pleural effusion. Neck CT did not show any definite neck mass. Nonspecific prominent but not enlarged bilateral cervical nodes. Nonspecific prominence of the tonsils and adenoids. Prominent bilateral submandibular and parotid salivary glands, suspect baseline for patient. Upper thoracic findings showed large pericardial effusion, right pleural effusion, small areas of upper lobe paraseptal emphysema bilaterally. Patient had an episode of sustained V. tach. Torsemide was increased to twice daily. He was continued on metolazone. Patient may eventually benefit from Entresto, although not available at the hospital. He was given low-dose digoxin. Patient was noncompliant with fluid restriction. Patient has secondary gains from staying in the hospital. Patient was medically cleared for discharge. He was discharged home, advised to follow-up with [facility] cardiology clinic within a week. Patient refused placement FINAL DIAGNOSES: Acute on chronic systolic CHF Hypertension Morbid obesity Atrial flutter with 2: 1 block No evidence of coronary artery disease by cardiac catheterization at [facility] in 2018 Chronic recurrent chest pain with multiple hospitalizations Schizophrenia with history of Munchhausen syndrome and malingering History of Graves' disease Prediabetes Anemia Acute on chronic kidney disease COPD End-stage heart failure Pulmonary hypertension Iron deficiency anemia Liver cirrhosis Splenomegaly Thrombocytopenia Homelessness DISPOSITION: The treating physician has assessed the patient to be medically stable for discharge to an outstretched disposition. DISCHARGE MEDICATIONS: Refer to Discharge Medication List. DISCHARGE INSTRUCTIONS: Follow-up in a week. I have been assigned to complete a discharge summary on this account, I was not involved with the patient's management.--BRENDEN Lorenzana Jacqueline Robles NP Oct 28, 2019 22:35
== END 2019-10-26 20:45 | disposition home or self-care (01) | DRG 194 ==
LOC: EDBD 15:57 → EMR 16:15 → 2E 19:00 → EDBEDREQ 20:19 → 4E 10-24 16:45
DX: I13.0 Hypertensive heart and chronic kidney disease with heart failure and stage 1 through stage 4 chronic kidney disease, or unspecified chronic kidney disease (principal); I50.23 Acute on chronic systolic (congestive) heart failure; I50.84 End stage heart failure; N17.9 Acute kidney failure, unspecified; I48.92 Unspecified atrial flutter; I27.20 Pulmonary hypertension, unspecified; I42.0 Dilated cardiomyopathy; N18.9 Chronic kidney disease, unspecified; R73.03 Prediabetes; D50.9 Iron deficiency anemia, unspecified; Z68.34 Body mass index [BMI] 34.0-34.9, adult; E66.09 Other obesity due to excess calories; J44.9 Chronic obstructive pulmonary disease, unspecified; E05.00 Thyrotoxicosis with diffuse goiter without thyrotoxic crisis or storm; F17.200 Nicotine dependence, unspecified, uncomplicated; F20.0 Paranoid schizophrenia; D69.6 Thrombocytopenia, unspecified; I47.1 Supraventricular tachycardia; Z59.0 Homelessness; K74.60 Unspecified cirrhosis of liver; F68.10 Factitious disorder imposed on self, unspecified
CPT/HCPCS: 36415; 70490; 71045; 76700; 80048; 80053; 80069; 80076; 80162; 81001; 82140; 82270; 82378; 82550; 82607; 82728; 82746; 82977; 83036; 83540; 83550; 83615; 83735; 83880; 84100; 84484; 84550; 85007; 85025; 85044; 85060; 85610; 85651; 85730; 86140; 93005; 93306; 93970; 94640; 94664; 96374; 96375; 99285; J2405; J7030; J7620

== ENCOUNTER 2019-12-03 07:55 | Inpatient (IN) | payer MEDICARE, MEDICAID ==
[~2019-12-03] VITALS: Ht 160 cm; Wt 87.6 kg
[2019-12-03 07:55] VITALS: BP 104/84
[~2019-12-03 07:55] MED LIST changes: +ALLOPURINOL100 M1 ORAL; +ATORVASTATIN CA40 MG ORAL; +HYDROCHLOROTHIA50 MG ORAL; +PROTONIX20 MG ORAL; +TORSEMIDE10 MG ORAL; +ZAROXOLYN2.5 MG ORAL
--- NOTE | 2019-12-03 07:55 | NUR ---
ED Nurse Note: Pt walked in from [facility] c/o left sided CP radiating to left side of neck with SOB x 1 hour. Pt reports being discharged from [facility] and coming straight here. Respirations are labored with exertion. 94% on room air. All other vitals stable as documented. Pt has hx of CHF. A+Ox4.
[2019-12-03] MEDS ORDERED: Nitroglycerin 2% oint pkt TOPIC ONE (08:00)
--- NOTE | 2019-12-03 08:00 | Emergency Room Report ---
History of Present Illness General Chief Complaint: Chest Pain Source: Patient Present Illness HPI 54-year-old male past medical history of Graves' disease, CHF with an ejection fraction of 15%, multiple admissions for heart failure, presents with recurrent chest pain, shortness of breath and fluid overload x1 hour patient reports chest tightness no aggravating alleviating factors severity is moderate, constant, patient endorses shortness of breasts of breath while lying flat, no fevers chills cough, congestion, no nausea no vomiting,. Patient reports some weight gain. Patient presents for evaluation Allergies: Coded Allergies: SIMVASTATIN (Verified Allergy, Unknown, 07/03/19) Uncoded Allergies: STATINS (Allergy, Unknown, 08/13/19) COVID-19 Screening Contact w/high risk pt: No Recent Travel to affected area: No Experienced COVID-19 symptoms?: Yes COVID-19 symptoms experienced: Shortness of Breath COVID-19 Testing performed TILE TRIMMER: No Patient History Past Medical History: see triage record Reviewed Nursing Documentation: PMH: Agreed; PSxH: Agreed Nursing Documentation-PMH Hx Cardiac Problems: Yes - CHF Hx Hypertension: Yes Hx Cancer: No Hx Gastrointestinal Problems: No Hx Neurological Problems: No Review of Systems All Other Systems: negative except mentioned in HPI Physical Exam Vital Signs Date Time Temp Pulse Resp B/P (MAP) Pulse Ox O2 Delivery O2 Flow Rate FiO2 12/03/19 07:39 97.2 113 19 119/75 (90) 92 Room Air Sp02 EP Interpretation: reviewed, normal General Appearance: alert, moderate distress Head: normocephalic, atraumatic Eyes: bilateral eye PERRL, bilateral eye EOMI ENT: uvula midline, moist mucus membranes Neck: supple, thyroid normal, supple/symm/no masses Respiratory: respiratory distress, accessory muscle use, crackles Cardiovascular #1: normal peripheral pulses, JVD, tachycardia Gastrointestinal: non tender, soft, no guarding, no rebound Musculoskeletal: normal inspection Neurologic: alert, oriented x3 Psychiatric: mood/affect normal Skin: no rash, warm/dry Medical Decision Making Diagnostic Impression: Primary Impression: Chest pain Qualified Codes: R07.9 - Chest pain, unspecified Additional Impression: CHF exacerbation Qualified Codes: I50.23 - Acute on chronic systolic (congestive) heart failure ER Course 54-year-old male presents with chest pain, shortness of breath differential diagnosis includes CHF exacerbation, ACS, pneumonia Patient with crackles on exam, patient is tachypneic, short of breath, patient visibly in distress, patient started on nitroglycerin paste, patient given 40 mg of Lasix, and aspirin 325. Anticipate admission for patient given his acute shortness of breath and fluid overload status Patient admitted to Dr. Cardoza Laboratory Tests Test 12/03/19 08:30 White Blood Count 4.7 K/UL (4.8-10.8) L Red Blood Count 3.67 M/UL (4.70-6.10) L Hemoglobin 11.1 G/DL (14.2-18.0) L Hematocrit 37.5 % (42.0-52.0) L Mean Corpuscular Volume 102 FL (80-99) H Mean Corpuscular Hemoglobin 30.4 PG (27.0-31.0) Mean Corpuscular Hemoglobin Concent 29.7 G/DL (32.0-36.0) L Red Cell Distribution Width 16.5 % (11.6-14.8) H Platelet Count 106 K/UL (150-450) L Mean Platelet Volume 8.7 FL (6.5-10.1) Neutrophils (%) (Auto) 65.6 % (45.0-75.0) Lymphocytes (%) (Auto) 16.6 % (20.0-45.0) L Monocytes (%) (Auto) 11.9 % (1.0-10.0) H Eosinophils (%) (Auto) 4.1 % (0.0-3.0) H Basophils (%) (Auto) 1.7 % (0.0-2.0) Prothrombin Time 12.1 SEC (9.30-11.50) H Prothrombin Time INR 1.1 (0.9-1.1) Activated Partial Thromboplast Time 26 SEC (23-33) Sodium Level 138 MMOL/L (136-145) Potassium Level 4.7 MMOL/L (3.5-5.1) Chloride Level 98 MMOL/L (98-107) Carbon Dioxide Level 34 MMOL/L (21-32) H Anion Gap 6 mmol/L (5-15) Blood Urea Nitrogen 13 mg/dL (7-18) Creatinine 1.4 MG/DL (0.55-1.30) H Estimated Glomerular Filtration Rate > 60 mL/min (>60) Glucose Level 98 MG/DL (74-106) Calcium Level 8.4 MG/DL (8.5-10.1) L Total Bilirubin 0.5 MG/DL (0.2-1.0) Aspartate Amino Transferase (AST) 45 U/L (15-37) H Alanine Aminotransferase (ALT) 26 U/L (12-78) Alkaline Phosphatase 88 U/L (46-116) Troponin I 0.026 ng/mL (0.000-0.056) Pro-B-Type Natriuretic Peptide 2495 pg/mL (0-125) H Total Protein 7.4 G/DL (6.4-8.2) Albumin 3.3 G/DL (3.4-5.0) L Globulin 4.1 g/dL Albumin/Globulin Ratio 0.8 (1.0-2.7) L EKG Diagnostic Results EKG Time: 07:59 EP Interpretation: NSR, rate 98, QTc 513, normal axis, flipped T waves V5 V6 Rhythm Strip Diag. Results Rhythm Strip Time: 08:00 EP Interpretation: yes Rate: 99 Rhythm: NSR, no PVC's, no ectopy Chest X-Ray Diagnostic Results Chest X-Ray Diagnostic Results : Chest X-Ray Ordered: Yes # of Views/Limited/Complete: 1 View Indication: Shortness of Breath EP Interpretation: Yes Interpretation: other - Pulmonary edema Impression: Other - Pulmonary edema Electronically Signed by: Sherwin Batista MD Last Vital Signs Date Time Temp Pulse Resp B/P (MAP) Pulse Ox O2 Delivery O2 Flow Rate FiO2 12/03/19 07:39 97.2 113 19 119/75 (90) 92 Room Air Disposition: ADMITTED INPATIENT Condition: Serious Sherwin Batista MD Dec 03, 2019 08:00
--- NOTE | 2019-12-03 08:30 | NUR ---
ED Nurse Note: blood sent to lab
--- NOTE | 2019-12-03 08:50 | NUR ---
ED Nurse Note: Pt asked for morphine. made ED MD aware of pt's pain level
--- NOTE | 2019-12-03 08:55 | NUR ---
ED Nurse Note: Spoke with jie Ríos about cxr order.
[2019-12-03 09:09] LABS: BASOPHILS % (AUTO) 1.7 % (0.0-2.0); EOSINOPHILS % (AUTO) 4.1 % (0.0-3.0); HEMATOCRIT 37.5 % (42.0-52.0); HEMOGLOBIN 11.1 G/DL (14.2-18.0); LYMPHOCYTES % (AUTO) 16.6 % (20.0-45.0); MEAN CORPUSCULAR VOLUME 102 FL (80-99); MONOCYTES % (AUTO) 11.9 % (1.0-10.0); NEUTROPHILS % (AUTO) 65.6 % (45.0-75.0); PLATELET COUNT 106 K/UL (150-450); RED BLOOD COUNT 3.67 M/UL (4.70-6.10); RED CELL DISTRIBUTION WIDTH 16.5 % (11.6-14.8); WHITE BLOOD COUNT 4.7 K/UL (4.8-10.8)
[2019-12-03 09:10] LABS: INR 1.1 (0.9-1.1)
--- NOTE | 2019-12-03 09:12 | NUR ---
ED Nurse Note: xr @ bedside
[2019-12-03 09:13] LABS: ANION GAP 6 mmol/L (5-15); BLOOD UREA NITROGEN 13 mg/dL (7-18); CALCIUM 8.4 MG/DL (8.5-10.1); CARBON DIOXIDE 34 MMOL/L (21-32); CHLORIDE 98 MMOL/L (98-107); CREATININE 1.4 MG/DL (0.55-1.30); POTASSIUM 4.7 MMOL/L (3.5-5.1); SODIUM 138 MMOL/L (136-145)
[2019-12-03] MEDS ORDERED: Morphine Sulfate 4mg/ml Inj (IV USE ONLY) IVP ONE (09:15)
--- NOTE | 2019-12-03 09:19 | NUR ---
ED Nurse Note: pt's O2 saturation 84% on room air. Applied NC @ 2 L. O2 saturation now 95%
[2019-12-03 09:24] LABS: ALANINE AMINOTRANSFERASE 26 U/L (12-78); ALBUMIN 3.3 G/DL (3.4-5.0); ALBUMIN/GLOBULIN RATIO 0.8 (1.0-2.7); ALKALINE PHOSPHATASE 88 U/L (46-116); ASPARTATE AMINO TRANSFERASE 45 U/L (15-37); BILIRUBIN,TOTAL 0.5 MG/DL (0.2-1.0)
[2019-12-03 10:00] VITALS: BP 104/81
--- NOTE | 2019-12-03 10:15 | Diagnostic Imaging Report ---
Indication: Shortness of breath Technique: One view of the chest Comparison: 10/26/2019 Findings: Again demonstrated is massive cardiomegaly. Bands of atelectasis are seen in the left midlung periphery. There is some atelectasis or very focal patchy infiltrate at the right lung base. Previously demonstrated right pleural effusion is no longer evident. Previously demonstrated mild interstitial congestion has improved Impression: Massive cardiomegaly, also previously reported Improved interstitial congestion and right pleural fluid Left perihilar atelectasis. Right basilar atelectasis and/or focal consolidation
--- NOTE | 2019-12-03 11:45 | NUR ---
ED Nurse Note: report given to GENTRY Pierre on 2 E
--- NOTE | 2019-12-03 11:54 | NUR ---
ED Nurse Note: Pt transferred safely to 2E with all belongings including cell phone and wilkinson.
[2019-12-03 12:20] VITALS: BP 93/65
--- NOTE | 2019-12-03 12:20 | NUR ---
NURSE NOTES: Patient transferred from ED, Patient awake, alert and oriented x4. Able to make needs known. panel monitor initiated. Belonging check done. Patient denied to send valuables to send to safe. Vital sign taken, IV on left hand patent and intact. Skin assessment is done, No skin breakdown. Bed in low position and locked, Call light within reach. Encouraged to use call light when needed. Will continue plan of care.
--- NOTE | 2019-12-03 14:30 | NUR ---
NURSE NOTES: Patient has Proxysmal A.Fib with RVR. Dr. Cardoza is aware. Add Dr. Kimble as consult.
[2019-12-03] MEDS ORDERED: Nitroglycerin Patch 0.1mg/hr TDERMAL PRN (15:00)
[2019-12-03 16:00] VITALS: BP 100/65
[2019-12-03] MEDS: Morphine Sulfate 2mg/ml Inj(IV/IM USE ONLY) IVP PRN (17:41)
--- NOTE | 2019-12-03 19:27 | NUR ---
HAND-OFF: Report given to Jessica/RN. Patient is stable condition, endorsed plan of care.
--- NOTE | 2019-12-03 19:28 | NUR ---
NURSE NOTES: Patient received from Gabby RN. Patient in stable condition. No s/s of distress. Alert and oriented x4. Saturating well with Nasal cannula @ 2L/min. IV site patent and intact at Left hand 22G saline locked. Call light and bedside table within reach. Bed in lowest position and locked. Will continue plan of care.
[2019-12-03 20:00] VITALS: BP 100/72
[2019-12-03] MEDS: Carvedilol 6.25mg Tab ORAL SCH (21:39)
--- NOTE | 2019-12-03 21:44 | History and Physical Report ---
DATE OF ADMISSION: 12/03/2019 HISTORY OF PRESENT ILLNESS: This is a 54-year-old obese male came to the emergency room for short of breath and was found congestive heart failure and cardiomyopathy. PAST MEDICAL HISTORY: Patient has a history of chronic respiratory insufficiency, CHF, COPD, thrombocytopenia, chronic back pain, anemia, renal insufficiency, cardiac LVH, and gout. MEDICATIONS: Allopurinol, aspirin, carvedilol, Lasix, hydralazine, hydrochlorothiazide, lisinopril, metolazone, nitroglycerin, torsemide, Zofran. ALLERGIES: Simvastatin and statins. PHYSICAL EXAMINATION: GENERAL: This is elderly obese male who is currently sitting in the bed, complaining some nausea and short of breath. VITAL SIGNS: Blood pressure 109/87, pulse 103, respirations 18, temperature 98. SKIN: Slightly diaphoretic. HEENT: . CHEST: Bilateral scattered crackles. CARDIOVASCULAR: Regular rhythm. Tachycardia. ABDOMEN: Soft. Positive bowel sounds. EXTREMITIES: 1+ edema GENITOURINARY: Deferred. LABORATORY EXAMINATION: White counts are 4.7, hemoglobin 11, hematocrit 37, platelets are 102. Chemistry panel, BUN 13, creatinine 1.4. BNP was 2495. Troponin 0.026. Chest x-ray showing massive cardiomegaly, improving interstitial congestion, right pleural fluid, left perihilar atelectasis, and right basilar atelectasis or consolidation. ASSESSMENT: 1. CHF. 2. Cardiomyopathy. 3. Hypertension. 4. Comorbid obesity. 5. Chronic back pain. PLAN: We will admit on telemetry bed. Restriction of fluid. Continue Lasix, bronchodilator treatment, THO inhibitor, beta-david. Consider Cardiology and Pulmonary consult. Dav Cardoza M.D. DR: CHAD JOB#: [id number] CC:
[2019-12-04] VITALS: BP 121/64
[2019-12-04] MEDS: Morphine Sulfate 2mg/ml Inj(IV/IM USE ONLY) IVP PRN (02:22)
[2019-12-04 04:00] VITALS: BP 93/70
--- NOTE | 2019-12-04 04:38 | NUR ---
NURSE NOTES: Patient had a 12 beats VTach. MD notified. Awaiting call back. Vital signs stable.
--- NOTE | 2019-12-04 06:48 | NUR ---
NURSE NOTES: Called Dr. Cardoza regarding patient's 12 beats Vtach this morning. awaiting callback.
--- NOTE | 2019-12-04 07:13 | NUR ---
NURSE NOTES: pt has cardiac rehabilitation specialist no signs of cardiac or respiratory distress a this time. AO x4, pt has no pain at this time. Bed in lowest position, call light within reach, will continue to monitor pt. pt is on O2 2L but continuously keeps taking it off. educated pt on the importance of keep using oxygen, he states he understand and will try to keep it on. Will continue to monitor pt.
[2019-12-04 08:00] VITALS: BP 96/60
[2019-12-04] MEDS ORDERED: hydroCHLOROthiazide 25mg cap ORAL SCH (09:00)
[2019-12-04] MEDS: Aspirin Baby 81mg ORAL SCH (09:00)
[2019-12-04] MEDS ORDERED: HydrALAZINE 10mg Tab ORAL SCH (09:00)
[2019-12-04] MEDS: Carvedilol 6.25mg Tab ORAL SCH (09:00)
[2019-12-04] MEDS: Allopurinol 100mg Tab ORAL SCH (09:00)
[2019-12-04] MEDS ORDERED: Torsemide 10mg tab ORAL SCH (09:00)
[2019-12-04] MEDS: Lisinopril 2.5mg tab ORAL SCH (09:00)
--- NOTE | 2019-12-04 09:51 | NUR ---
NURSE NOTES: pt refused all 9am meds because he hasn't eaten and does not want medication on empty stomach.
[2019-12-04 12:00] VITALS: BP 99/68
--- NOTE | 2019-12-04 12:05 | NUR ---
NURSE NOTES: pt has requested morphine, however BP has been low see V/s from 1200. Doctor Ariel ordered tyleno 650 mg for pt. pt however refuses to take it stating that that does not work for him.
[2019-12-04] MEDS: Solu-MEDROL 40mg Inj IVP SCH ×2 (12:07→21:00)
--- NOTE | 2019-12-04 15:00 | NUR ---
NURSE NOTES: pt reports having pain but does not want Tylenol BP 101/72 hr 82, O2 93-96 on 2L oxygen. Blood pressure continues to be even after holding 9am HT meds, also diuretics were not given as well; doctor Sony was notified. 1625 Pt is is very upset because doctor Cardoza, DC morphine order, still offered pt tylenol again and pt refused to take it.
--- NOTE | 2019-12-04 15:14 | NUR ---
CASE MANAGEMENT:REVIEW 54 YR OLD MALE WALKED IN TO ER CC: LEFT SIDED CHEST PAIN RADIATING TO NECK PATIENT STATES HE WAS DISCHARGED FROM [facility] AND CAME TO OUR ER SI: CHEST PAIN. CHF EXACERBATION 97.2 113 19 119/75 92% ON RA-->DROPPED TO 84% H/H-11.1/37.5 PLT-106 CR+1.4 BNP+2495 IS: PLACED ON 2L/NC ASA PO NITRO 1" TO CW IV LASIX IV MORPHINE IV ZOFRAN CHEST XRAY : TO TELEMETRY UNIT
--- NOTE | 2019-12-04 15:59 | Progress Note ---
DATE: 12/04/2019 SUBJECTIVE: The patient is a 54-year-old male who came with short of breath, chest pain, acute COPD exacerbation. The patient currently had chest pain while he was in the bathroom. His short of breath is improving. PHYSICAL EXAMINATION: VITAL SIGNS: Blood pressure 96/60, pulse 97, respirations 20, temperature 97.9. HEENT: NAD. CHEST: Bilaterally decreased breath sounds. CARDIOVASCULAR: Regular rhythm. No gallop. No murmur. ABDOMEN: Soft. Positive bowel sounds. Nontender. EXTREMITIES: Trace edema GENITOURINARY: Deferred. LABORATORY DATA: The patient has no labs today. ASSESSMENT: 1. CHF. 2. Fluid overload. 3. COPD. 4. . 5. Cardiomyopathy. PLAN: 1. We will add steroid. 2. Continue Lasix. 3. Continue bronchodilator treatments and recommended quitting smoking. Dav Cardoza M.D. DR: Hao JOB#: [id number] CC:
[2019-12-04 16:00] VITALS: BP 101/72
--- NOTE | 2019-12-04 16:46 | NUR ---
NURSE NOTES: Dr. George ordered to DC morphine.
--- NOTE | 2019-12-04 17:00 | Consultation ---
DATE OF CONSULTATION: 12/04/2019 PULMONARY CONSULTATION CONSULTING PHYSICIAN: Frank Baca MD. HISTORY OF PRESENT ILLNESS: This is a 54-year-old male with history of congestive heart failure/cardiomyopathy with low EF. Patient has had previous admissions for CHF and also chest pain. Patient also reports history of Graves' disease. He came to the hospital with shortness of breath. He was seen and admitted to the hospital. Patient reports orthopnea and PND. Patient reports weight gain as well. ALLERGIES: To simvastatin. HOME MEDICATIONS: Reviewed and reconciled in chart. PAST MEDICAL HISTORY: Hypertension, cardiomyopathy, questionable COPD. REVIEW OF SYSTEMS: Denies any headaches, hematemesis, melena, hematochezia, night sweats, or weight loss. PHYSICAL EXAMINATION: GENERAL: Reveals a 54-year-old male. HEENT: Unremarkable. CHEST: Shows decreased breath sounds bilaterally with normal heart sounds. There is 1+ peripheral edema. VITAL SIGNS: Blood pressure is 96/60, heart rate 94, respirations 20, O2 saturation 97% on 2 L of oxygen. LABORATORY DATA: Lab testing shows hemoglobin 11.1, otherwise normal CBC and BMP. Platelet count is 106,000. Creatinine 1.4. Troponin is negative. Coags are negative. IMAGING STUDIES: Obtained. X-ray chest was reviewed, which shows bibasilar atelectasis, massive cardiomegaly. There is also concern about possible right lower lung consolidation. IMPRESSION: 1. Decompensated congestive heart failure/systolic heart failure. 2. Cardiomyopathy. 3. Hypertension. DISCUSSION: Patient has a small right effusion which has decreased. He has a right lung consolidation. I doubt pneumonia given lack of fever or leukocytosis. We will follow carefully. Patient needs aggressive diuresis and cardiac consultation. We will follow as center maker hand. Frank Baca M.D. DR: CARYN JOB#: [id number] CC:
--- NOTE | 2019-12-04 17:08 | Cardiac Electrophysiology PN ---
Subjective Subjective [id number] Objective Last 24 Hour Vital Signs Date Time Temp Pulse Resp B/P (MAP) Pulse Ox O2 Delivery O2 Flow Rate FiO2 12/04/19 09:00 96/60 12/04/19 09:00 97 96/60 12/04/19 08:55 Nasal Cannula 2.0 12/04/19 08:00 97.9 97 20 96/60 (72) 93 12/04/19 04:38 124 12/04/19 04:00 95 12/04/19 04:00 98.1 124 18 93/70 (78) 97 12/04/19 00:00 95 12/04/19 00:00 96.6 101 19 121/64 (83) 97 12/03/19 21:39 103 100/74 12/03/19 21:00 Nasal Cannula 2.0 12/03/19 20:00 98.0 103 20 100/72 (81) 97 12/03/19 20:00 102 Intake and Output 12/03/19 12/04/19 19:00 07:00 Intake Total 400 ml 350 ml Output Total 500 ml 450 ml Balance -100 ml -100 ml Intake Oral 400 ml 350 ml Output Urine Total 500 ml 450 ml # Voids 2 2 # Bowel Movements 1 1 Spenser Kimble MD Dec 04, 2019 17:08
--- NOTE | 2019-12-04 19:09 | NUR ---
HAND-OFF: Report given to Jessica/jose antonio, pt in stable condition, endorsed plan of care.
--- NOTE | 2019-12-04 19:10 | NUR ---
NURSE NOTES: Patient received from Kelly RINALDI. Patient in stable condition. Alert and oriented x4. On 2L of nasal cannula saturating well. IV site patent and intact 22G at Left hand saline locked. No s/s of distress at this time. Bedside table and call light within reach. Will continue plan of care.
[2019-12-04 20:00] VITALS: BP 103/79
[2019-12-04] MEDS ORDERED: METOLAZONE2.5 MG PO (20:55)
[2019-12-04] MEDS ORDERED: FUROSEMIDE20 M1 ORAL (20:55)
--- NOTE | 2019-12-04 21:44 | Consultation ---
DATE OF CONSULTATION: 12/04/2019 CARDIOLOGY CONSULTATION CONSULTING PHYSICIAN: Spenser Kimble MD REFERRING PHYSICIAN: Dav Cardoza MD REASON FOR CONSULTATION: Management of congestive heart failure and long runs of ventricular tachycardia. HISTORY OF PRESENT ILLNESS: The patient is a 54-year-old gentleman that I am completely familiar from previous admission in June of 2019. The patient has history of severe nonischemic dilated cardiomyopathy with EF of 10% to 15%, that was confirmed by cardiac catheterization at [facility] in 2018. The patient also has history of recurrent runs of ventricular tachycardia. The patient also history of Graves disease, multiple admissions for congestive heart failure. The patient presented to the emergency room for increasing shortness of breath, fluid overload, and lower extremity edema. While on telemetry, the patient has 13 beats of ventricular tachycardia and then began to have 6 beats of ventricular tachycardia. REVIEW OF SYSTEMS: Review of systems was negative other than what was mentioned in history of present illness. PAST MEDICAL HISTORY: As mentioned above. FAMILY HISTORY: Noncontributory. SOCIAL HISTORY: Denies using drugs. MEDICATIONS: Per reconciliation. PHYSICAL EXAMINATION: VITAL SIGNS: Show blood pressure of 96/60, pulse is 97, respirations 18, and temperature 98. HEAD AND NECK: Positive JVD. LUNGS: Decreased breath sounds. CARDIOVASCULAR: Regular S1 and S2 with no gallop. ABDOMEN: Soft. EXTREMITIES: A 2+ pitting edema. He also has scrotal edema. LABORATORY AND DIAGNOSTIC DATA: His labs show white count of 4.7, hemoglobin 11, hematocrit 37, and platelet count is 106. Sodium 138, potassium 4.7, BUN of 13, creatinine 1.4, and glucose of 98. Troponin negative x2. His urine toxicology is positive for benzodiazepine and opiates. INR is 1.1. ASSESSMENT AND PLAN: 1. Exacerbation of congestive heart failure in this patient with nonischemic cardiomyopathy, EF of 10% to 15%. Blood pressure is low. The patient is already on Coreg, Lasix, Zaroxolyn, lisinopril-hydrochlorothiazide, but currently is refusing. Discontinue hydralazine, Demadex and metolazone. I am trying to keep the patient only on Coreg, Lasix, lisinopril, and Aldactone. 2. History of atrial flutter. We will watch the patient on telemetry. Resume Coreg. 3. History of hypertension. Continue current heart failure therapy. 4. History of Graves disease. 5. Morbid obesity. Thank you very much for allowing me to participate in the care of this patient. Please do not hesitate to contact me for any questions regarding my evaluation. Sincerely, Spenser Kimble M.D. DR: Juarez JOB#: [id number] CC:
[2019-12-05] VITALS: BP 117/82
[2019-12-05 04:00] VITALS: BP_SYST 117; BP_SYST 149; BP_DIAS 103; BP_DIAS 83
--- NOTE | 2019-12-05 07:20 | NUR ---
HAND-OFF: Report given to Kelly RINALDI. Patient in stable condition. Endorsed plan of care.
[2019-12-05 08:00] VITALS: BP 120/82
--- NOTE | 2019-12-05 08:05 | NUR ---
NURSE NOTES: pt. awake having breakfast. Pt on monitor technician no signs of cardiac distress. pt on O2 2L he takes it off and keeps getting educated on keeping it on that way he has an easier time breathing. Bed locked and in lowest position, call light within reach. will continue to monitor pt.
[2019-12-05 08:33] LABS: ANION GAP 12 mmol/L (5-15); BLOOD UREA NITROGEN 17 mg/dL (7-18); CALCIUM 8.4 MG/DL (8.5-10.1); CARBON DIOXIDE 27 MMOL/L (21-32); CHLORIDE 97 MMOL/L (98-107); CREATININE 1.5 MG/DL (0.55-1.30); POTASSIUM 5.1 MMOL/L (3.5-5.1); SODIUM 136 MMOL/L (136-145)
[2019-12-05] MEDS: Allopurinol 100mg Tab ORAL SCH (09:07)
[2019-12-05] MEDS: Aspirin Baby 81mg ORAL SCH (09:07)
[2019-12-05] MEDS: Spironolactone 25mg tab ORAL SCH (09:07)
[2019-12-05] MEDS: Lisinopril 2.5mg tab ORAL SCH (09:07)
[2019-12-05] MEDS: Solu-MEDROL 40mg Inj IVP SCH ×2 (09:08→20:15)
--- NOTE | 2019-12-05 09:52 | Pulmonology Progress Note ---
Subjective Interval Events: None new Constitutional: Reports: no symptoms HEENT: Repors: no symptoms Respiratory: Reports: no symptoms Cardiovascular: Reports: no symptoms Gastrointestinal/Abdominal: Reports: no symptoms Genitourinary: Reports: no symptoms Allergies: Coded Allergies: SIMVASTATIN (Verified Allergy, Unknown, 07/03/19) Uncoded Allergies: STATINS (Allergy, Unknown, 08/13/19) Objective Last 24 Hour Vital Signs Date Time Temp Pulse Resp B/P (MAP) Pulse Ox O2 Delivery O2 Flow Rate FiO2 12/05/19 09:07 120/82 12/05/19 09:06 94 120/82 12/05/19 08:33 Nasal Cannula 2.0 12/05/19 08:00 97.7 94 20 120/82 (95) 100 12/05/19 04:00 96.8 88 20 117/83 (94) 99 12/05/19 04:00 93 12/05/19 00:00 93 12/05/19 00:00 97.7 90 20 117/82 (94) 99 12/04/19 21:01 100 107/63 12/04/19 21:00 Nasal Cannula 2.0 12/04/19 20:00 93 12/04/19 20:00 97.9 94 22 103/79 (87) 100 12/04/19 16:00 97.9 82 20 101/72 (82) 100 12/04/19 16:00 101 12/04/19 12:00 96.3 78 20 99/68 (78) 95 12/04/19 12:00 96 Intake and Output 12/04/19 12/05/19 19:00 07:00 Intake Total 700 ml Output Total 300 ml Balance 400 ml Intake Oral 700 ml Output Urine Total 300 ml # Voids 4 # Bowel Movements 1 General Appearance: no acute distress HEENT: normocephalic Respiratory: chest wall non-tender, lungs clear Abdomen: normal bowel sounds Extremities: no cyanosis Laboratory Tests 12/05/19 05:30: Sodium Level 136, Potassium Level 5.1, Chloride Level 97L, Carbon Dioxide Level 27, Anion Gap 12, Blood Urea Nitrogen 17, Creatinine 1.5H, Estimat Glomerular Filtration Rate 59.4, Glucose Level 96, Calcium Level 8.4L, Troponin I 0.010, Pro-B-Type Natriuretic Peptide 2771H, Thyroid Stimulating Hormone (TSH) 3.397, Free Thyroxine 1.19 Current Medications Medications (Trade) Dose Ordered Sig/Marybeth Route PRN Reason Start Time Stop Time Status Last Admin Dose Admin Acetaminophen (Tylenol) 650 mg Q6H PRN ORAL For Headache and fever >100.2 12/04/19 16:30 01/03/20 16:29 Allopurinol (Zyloprim) 200 mg DAILY ORAL 12/04/19 09:00 01/03/20 08:59 12/05/19 09:07 Aspirin (ASA) 81 mg DAILY ORAL 12/04/19 09:00 01/18/20 08:59 12/05/19 09:07 Carvedilol (Coreg) 3.125 mg Q12HR ORAL 12/04/19 21:00 01/02/20 20:59 12/05/19 09:06 Furosemide (Lasix) 40 mg DAILY IV 12/04/19 09:00 01/03/20 08:59 12/05/19 09:08 Lisinopril (ZestriL) 5 mg DAILY ORAL 12/04/19 09:00 01/03/20 08:59 12/05/19 09:07 Methylprednisolone Sodium Succinate (Solu-MEDROL) 40 mg EVERY 12 HOURS IVP 12/04/19 11:45 03/03/20 11:44 12/05/19 09:08 Nitroglycerin (Ntg) 1 patch Q24H PRN TDERMAL CHEST PAIN 12/03/19 15:00 01/02/20 14:59 Ondansetron HCl (Zofran) 4 mg Q6H PRN IVP Nausea & Vomiting 12/03/19 14:00 01/02/20 13:59 Spironolactone (Aldactone) 25 mg DAILY ORAL 12/05/19 09:00 01/04/20 08:59 12/05/19 09:07 Assessment/Plan Assessment/Plan IMPRESSION: 1. Decompensated congestive heart failure/systolic heart failure. 2. Cardiomyopathy. 3. Hypertension. DISCUSSION: Patient has a small right effusion which has decreased. He has a right lung consolidation. I doubt pneumonia given lack of fever or leukocytosis. I will follow carefully. Patient needs aggressive diuresis and cardiac consultation. I will follow as parish worker. Hong Gross Omar Syed MD Dec 05, 2019 09:52
--- NOTE | 2019-12-05 10:27 | NUR ---
CASE MANAGEMENT:REVIEW 12/05/19 SI: CHF EXACERBATION W/EF 10-15% MASSIVE CARDIOMEGALY. H/O GRAVES DISEASE 97.7 94 20 120/82 100% ON 2L/NC CR+1.5 BNP+2771 IS: IV SOLUMEDROL Q12 IV LASIX QD ALDACTONE PO QD COREG PO Q12 ALLOPURINOL PO QD ASA PO QD LISINOPRIL PO QD : TELEMETRY PLAN: DIURESIS 2DECHO PENDING
[2019-12-05 12:00] VITALS: BP 124/88
--- NOTE | 2019-12-05 13:37 | CDS Physician Query ---
PLEASE COMPLETE THE DOCUMENT BEFORE SIGNING Dear Dr. Dav Cardoza Date: 12/05/2019 Psychologist Educational/CDS Name: Ana Edwards Exercise your independent professional judgment when responding to query. Question asked do not imply a particular answer is desired/expected Clinical Documentation States: 54-year-old obese male came to the emergency room for short of breath and was found congestive heart failure and cardiomyopathy. Cardio consult: Exacerbation of congestive heart failure in this patient with nonischemic cardiomyopathy, EF of 10% to 15%. Blood pressure is low. The patient is already on Coreg, Lasix, Zaroxolyn, Creatinine 12/02 1.4 mg/dl, 12/04 1.5 mg/dl Please Clarify the type of renal failure below: [] CKD: please specify stage [] MARGUERITE [] MARGUERITE on CKD [] Unknown Condition Present on Admission: [] Yes [] No []Clinically Undeterminable Please also document in your Progress Notes and/or Discharge Summary and indicate if the condition was present on admission. MARTHA
--- NOTE | 2019-12-05 14:47 | Cardiac Electrophysiology PN ---
Assessment/Plan Assessment/Plan 1. Exacerbation of congestive heart failure in this patient with nonischemic cardiomyopathy, EF of 10% to 15%. Continue Coreg, Lasix, lisinopril and Aldactone. Likely will need ICD after becomed Euvolemic' 2. History of atrial flutter. On Coreg. 3. History of hypertension. Continue current heart failure therapy. 4. History of Graves disease. 5. Morbid obesity. Subjective Subjective BP better. Echo EF 10%. In SR Objective Last 24 Hour Vital Signs Date Time Temp Pulse Resp B/P (MAP) Pulse Ox O2 Delivery O2 Flow Rate FiO2 12/05/19 12:00 97.5 97 18 124/88 (100) 99 12/05/19 12:00 100 12/05/19 09:07 120/82 12/05/19 09:06 94 120/82 12/05/19 08:33 Nasal Cannula 2.0 12/05/19 08:00 94 12/05/19 08:00 97.7 94 20 120/82 (95) 100 12/05/19 04:00 96.8 88 20 117/83 (94) 99 12/05/19 04:00 93 12/05/19 00:00 93 12/05/19 00:00 97.7 90 20 117/82 (94) 99 12/04/19 21:01 100 107/63 12/04/19 21:00 Nasal Cannula 2.0 12/04/19 20:00 93 12/04/19 20:00 97.9 94 22 103/79 (87) 100 12/04/19 16:00 97.9 82 20 101/72 (82) 100 12/04/19 16:00 101 Intake and Output 12/04/19 12/05/19 18:59 06:59 Intake Total 700 ml Output Total 300 ml Balance 400 ml Intake Oral 700 ml Output Urine Total 300 ml # Voids 4 # Bowel Movements 1 Laboratory Tests Test 12/05/19 05:30 Sodium Level 136 MMOL/L (136-145) Potassium Level 5.1 MMOL/L (3.5-5.1) Chloride Level 97 MMOL/L (98-107) L Carbon Dioxide Level 27 MMOL/L (21-32) Anion Gap 12 mmol/L (5-15) Blood Urea Nitrogen 17 mg/dL (7-18) Creatinine 1.5 MG/DL (0.55-1.30) H Estimat Glomerular Filtration Rate 59.4 mL/min (>60) Glucose Level 96 MG/DL (74-106) Calcium Level 8.4 MG/DL (8.5-10.1) L Troponin I 0.010 ng/mL (0.000-0.056) Pro-B-Type Natriuretic Peptide 2771 pg/mL (0-125) H Thyroid Stimulating Hormone (TSH) 3.397 uiU/mL (0.358-3.740) Free Thyroxine 1.19 NG/DL (0.76-1.46) Objective HEAD AND NECK: Positive JVD. LUNGS: Decreased breath sounds. CARDIOVASCULAR: Regular S1 and S2 with no gallop. ABDOMEN: Soft. EXTREMITIES: A 2+ pitting edema. He also has scrotal edema. Spenser Kimble MD Dec 05, 2019 14:47
[2019-12-05] MEDS ORDERED: Morphine Sulfate 2mg/ml Inj(IV/IM USE ONLY) IVP PRN ×2 (15:45→22:30)
[2019-12-05 16:00] VITALS: BP 113/82
--- NOTE | 2019-12-05 16:30 | NUR ---
NURSE NOTES: delayed giving mophine because pt wanted to use the restroom.
--- NOTE | 2019-12-05 19:11 | NUR ---
HAND-OFF: Report given to Luciana/rn, endorsed plan of care, pt in stable condition.
--- NOTE | 2019-12-05 19:20 | NUR ---
NURSE NOTES: RECEIVED REPORT FROM GENTRY AVILA. PATIENT AWAKE AND SITTING AT THE EDGE OF BED, AOX4, VERBALLY RESPONSIVE AND ABLE TO MAKE NEEDS KNOWN. NO COMPLAINTS OF PAIN OR DISCOMFORT AT THIS TIME. BREATHING IS EVEN AND UNLABORED ON 2LPM VIA NC, NO S/SX OF RESPIRATORY DISTRESS NOTED AT THIS TIME. IV SITE ON LEFT HAND PATENT, INTACT, ASYMPTOMATIC, AND SALINE-LOCKED. NOTED TO HAVE BILATERAL LOWER LEG EDEMA (+2). FALL PRECAUTIONS IN PLACE. CALL LIGHT AND URINAL WITHIN REACH. BED LOCKED AND IN LOWEST POSITION, SIDEAILS UP X 2. WILL CONTINUE TO MONITOR FOR ANY CHANGES.
[2019-12-05 20:00] VITALS: BP 111/64
--- NOTE | 2019-12-05 20:30 | Progress Note ---
DATE: 12/05/2019 OBJECTIVE: VITAL SIGNS: Blood pressure is 124/88, pulse 97, saturation 100%, respirations 18, temperature is 97.5. HEENT: Mild JVD. CHEST: Bilateral decreased breath sounds. Scattered crackles. CARDIOVASCULAR: Regular rhythm. Tachycardia. ABDOMEN: Soft. Positive bowel sounds. EXTREMITIES: No edema. GENITOURINARY: Deferred. LABORATORY DATA: Sodium 136, potassium 5.1, BUN 17, creatinine 1.5, glucose is 96. BNP was 2771. Troponin 0.10. TSH is 3.37. MICROBIOLOGY: Pending. ASSESSMENT: 1. Acute COPD exacerbation. 2. CHF. 3. Hypertension. 4. Comorbid obesity. 5. Smoker. Recommended to quit smoking. 6. Intractable back pain. PLAN: We will add morphine. Continue spironolactone. Continue carvedilol. Continue aspirin, lisinopril. Cardiology and Pulmonary is on case. Dav Cardoza M.D. DR: CHAD JOB#: [id number] CC:
--- NOTE | 2019-12-05 22:10 | NUR ---
NURSE NOTES: PATIENT COMPLAINED OF SOB, AND REQUESTED A BREATHING TREATMENT; HR 111, RR 22, O2 SATURATION 98% ON 4LPM VIA NC. CONTACTED DR. SINCLAIR, WITH NEW ORDER FOR ALBUTEROL HHN 2.5 MG Q6 PRN FOR SOB. NOTED AND CARRIED OUT.
[2019-12-05] MEDS ORDERED: Albuterol ud Inhalation HHN PRN (22:15)
--- NOTE | 2019-12-05 22:26 | NUR ---
NURSE NOTES: CALLED RT FOR BREATHING TREATMENT, S/W BERRY.
--- NOTE | 2019-12-05 22:43 | NUR ---
NURSE NOTES: CONTACTED DR. SINCLAIR REGARDING AN ORDER FOR A RAPID COVID-19 SWAB IN ORDER TO INITIATE BREATHING TREATMENTS. PER DR. SINCLAIR, HE WILL START BREATHING TREATMENTS TOMORROW WITH NO NEW ORDERS FOR A COVID SWAB TESTING. PATIENT RR 20, OXYGEN SATURATION 99% WITH NO APPARENT S/SX OF RESPIRATORY DISTRESS. PATIENT DENIES ANY SOB, HOWEVER STATES HE FEELS A BREATHING TREATMENT WOULD PROVIDE SOME "COMFORT". WILL CONTINUE TO MONITOR PATIENT FOR ANY CHANGES.
--- NOTE | 2019-12-05 22:45 | NUR ---
NURSE NOTES: PATIENT'S HR AT REST RANGES BETWEEN 100-115. UPON EXERTION, PATIENT'S HR GOES UP TO 140-160, NON-SUSTAINED. INFORMED PATIENT TO REFRAIN FROM GETTING UP WITHOUT ASSISTANCE HIS HEART RATE INCREASES. PATIENT VERBALIZED UNDERSTANDING. WILL CONTINUE TO MONITOR PATIENT FOR ANY CHANGES.
--- NOTE | 2019-12-05 23:20 | NUR ---
NURSE NOTES: CONTACTED DR. VALENTE REGARDING PATIENT HAVING 6 SECONDS ON VTACH. AWAITING CALL BACK.
[2019-12-06] VITALS: BP 107/71
--- NOTE | 2019-12-06 02:07 | NUR ---
NURSE NOTES: PER PATIENT, HE ACCIDENTALLY REMOVED IV ON HIS LEFT HAND. PATIENT REQUESTS NEW IV BE INSERTED, BUT NOT ON HIS HANDS. ATTEMPTED 1X ON RFA, BUT PATIENT REMOVED IT, STATING HE WAS IN PAIN. REQUESTS ANOTHER NURSE TO TRY, STATING HE WANTS SOMEONE WHO "WILL NOT CAUSE SO MUCH PAIN".
--- NOTE | 2019-12-06 02:30 | NUR ---
NURSE NOTES: IV SITE ON RIGHT HAND, 22G INSERTED BY GENTRY TORRES. PATENT, INTACT, ASYMPTOMATIC, SALINE-LOCKED.
[2019-12-06 04:00] VITALS: BP 121/87
[2019-12-06] MEDS: Morphine Sulfate 2mg/ml Inj(IV/IM USE ONLY) IVP PRN ×3 (05:02→17:42)
--- NOTE | 2019-12-06 05:19 | NUR ---
NURSE NOTES: PATIENT REFUSES TO HAVE LINEN CHANGED, ALTHOUGH VISIBLY SOILED. PER PATIENT, HE WILL INFORM US WHEN HE WANTS HIS LINEN TO BE CHANGED.
--- NOTE | 2019-12-06 06:59 | NUR ---
NURSE NOTES: CONTACTED DR. VALENTE REGARDING EPISODE OF 13 BEATS OF VTACH. PATIENT ASLEEP AND ASYMPTOMATIC. AWAITING CALL BACK.
--- NOTE | 2019-12-06 07:31 | NUR ---
NURSE NOTES: Patient sitting up in bed, awake and alert, watching television, chest pain treated with morphine IVP, bed in lowest position, call light within reach, no c/o pain at this time, on 6 liters nasal cannula, in no apparent distress.
--- NOTE | 2019-12-06 07:36 | NUR ---
HAND-OFF: Report given to GENTRY SALCIDO. PATIENT IN STABLE CONDITION. PLAN OF CARE ENDORSED.
[2019-12-06 08:00] VITALS: BP 110/84
[2019-12-06] MEDS: Solu-MEDROL 40mg Inj IVP SCH ×4 (09:45→21:00)
[2019-12-06] MEDS: Spironolactone 25mg tab ORAL SCH (09:47)
[2019-12-06] MEDS: Lisinopril 2.5mg tab ORAL SCH (09:47)
[2019-12-06] MEDS: Aspirin Baby 81mg ORAL SCH (09:47)
[2019-12-06] MEDS: Allopurinol 100mg Tab ORAL SCH (09:48)
--- NOTE | 2019-12-06 09:54 | NUR ---
RD ASSESSMENT & RECOMMENDATIONS SEE CARE ACTIVITY FOR COMPLETE ASSESSMENT DAILY ESTIMATED NEEDS: Needs based on Pulmonary, cardiac 70.kg abw 25-30 kcals/kg 9108-3247 total kcals 1-1.5 g protein/kg 70-105 g total protein Fluid per MD, on lasix NUTRITION DIAGNOSIS: Decrease sodium and fat needs r/t CHF dx as evidenced by pt w/ CHF, elev BNP (2771), currently off Lasix, BMI >30 obese per guidelines. CURRENT DIET: Cardiac PO DIET RECOMMENDATIONS: Maintain Cardiac diet ADDITIONAL RECOMMENDATIONS: 1) Daily standing wt: monitor trend Pt on lasix, CHF, req daily wts 2) Check lytes daily on lasix, replete as needed 3) Updated HgA1C; monitor BG/ need for niss 4) B-complex 1 tab daily on lasix
[2019-12-06 12:00] VITALS: BP 118/84
--- NOTE | 2019-12-06 12:59 | Pulmonology Progress Note ---
Subjective Interval Events: None new Constitutional: Reports: no symptoms HEENT: Repors: no symptoms Respiratory: Reports: no symptoms Cardiovascular: Reports: no symptoms Gastrointestinal/Abdominal: Reports: no symptoms Genitourinary: Reports: no symptoms Allergies: Coded Allergies: SIMVASTATIN (Verified Allergy, Unknown, 07/03/19) Uncoded Allergies: STATINS (Allergy, Unknown, 08/13/19) Objective Last 24 Hour Vital Signs Date Time Temp Pulse Resp B/P (MAP) Pulse Ox O2 Delivery O2 Flow Rate FiO2 12/06/19 12:00 97.5 102 22 118/84 (95) 95 12/06/19 11:54 97.7 12/06/19 10:14 101 12/06/19 09:48 96 110/84 12/06/19 09:47 110/84 12/06/19 08:00 97.7 96 20 110/84 (93) 95 12/06/19 04:00 98.2 22 121/87 (98) 97 12/06/19 04:00 101 12/06/19 00:00 98.2 92 22 107/71 (83) 97 12/06/19 00:00 95 12/05/19 23:31 99.0 12/05/19 21:00 Nasal Cannula 4.0 12/05/19 20:54 99.0 12/05/19 20:17 101 111/64 12/05/19 20:00 97 12/05/19 20:00 101.7 101 20 111/64 (80) 100 12/05/19 16:00 97.7 95 20 113/82 (92) 98 12/05/19 16:00 95 Intake and Output 12/05/19 12/06/19 19:00 07:00 Intake Total 480 ml 420 ml Output Total 850 ml 400 ml Balance -370 ml 20 ml Intake Oral 480 ml 420 ml Output Urine Total 850 ml 400 ml # Bowel Movements 1 1 General Appearance: no acute distress HEENT: normocephalic Respiratory: chest wall non-tender, lungs clear Abdomen: normal bowel sounds Extremities: no cyanosis Current Medications Medications (Trade) Dose Ordered Sig/Marybeth Route PRN Reason Start Time Stop Time Status Last Admin Dose Admin Acetaminophen (Tylenol) 650 mg Q6H PRN ORAL For Headache and fever >100.2 12/04/19 16:30 01/03/20 16:29 12/05/19 20:24 Albuterol Sulfate (Proventil) 2.5 mg Q6HRT PRN HHN Shortness of Breath 12/05/19 22:15 12/10/19 22:14 Allopurinol (Zyloprim) 200 mg DAILY ORAL 12/04/19 09:00 01/03/20 08:59 12/06/19 09:48 Aspirin (ASA) 81 mg DAILY ORAL 12/04/19 09:00 01/18/20 08:59 12/06/19 09:47 Carvedilol (Coreg) 3.125 mg Q12HR ORAL 12/04/19 21:00 01/02/20 20:59 12/06/19 09:48 Furosemide (Lasix) 40 mg DAILY IV 12/04/19 09:00 01/03/20 08:59 12/06/19 09:41 Lisinopril (ZestriL) 5 mg DAILY ORAL 12/04/19 09:00 01/03/20 08:59 12/06/19 09:47 Methylprednisolone Sodium Succinate (Solu-MEDROL) 40 mg EVERY 12 HOURS IVP 12/04/19 11:45 03/03/20 11:44 12/06/19 09:45 Morphine Sulfate (Morphine Sulfate) 1 mg Q6H PRN IVP Moderate Pain (Pain Scale 4-6) 12/06/19 04:30 12/12/19 15:44 12/06/19 11:24 Nitroglycerin (Ntg) 1 patch Q24H PRN TDERMAL CHEST PAIN 12/03/19 15:00 01/02/20 14:59 Ondansetron HCl (Zofran) 4 mg Q6H PRN IVP Nausea & Vomiting 12/03/19 14:00 01/02/20 13:59 Spironolactone (Aldactone) 25 mg DAILY ORAL 12/05/19 09:00 01/04/20 08:59 12/06/19 09:47 Assessment/Plan Assessment/Plan IMPRESSION: 1. Decompensated congestive heart failure/systolic heart failure. 2. Cardiomyopathy. 3. Hypertension. DISCUSSION: Patient has a small right effusion which has decreased. He has a right lung consolidation. I doubt pneumonia given lack of fever or leukocytosis. I will follow carefully. Patient needs aggressive diuresis and cardiac consultation. 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 May need AICD Hong Gross Omar Syed MD Dec 06, 2019 12:59
--- NOTE | 2019-12-06 13:12 | NUR ---
NURSE NOTES: Patient refusing IV magnesium. He stated, "I only take it by mouth." Will notify MD.
--- NOTE | 2019-12-06 13:44 | Consultation ---
History of Present Illness General Date patient seen: Dec 06, 2019 Time patient seen: 01:00 - pm Chief Complaint: Chest Pain Referring physician: Sony Reason for Consultation: Pain management Present Illness HPI This is a 54 y/o male who [place] [facility] [place] the care of Dr. Cardoza due to chest pain and CHF. Was started on Morphine 1mg IV Q6H PRN severe pain, which patient reports has been helping in reducing his pain. We were consulted so patient has adequate pain control while here in the hospital. Allergies: Coded Allergies: SIMVASTATIN (Verified Allergy, Unknown, 07/03/19) Uncoded Allergies: STATINS (Allergy, Unknown, 08/13/19) Medication History Scheduled Amoxicillin/Potassium Clav 875-125* (Augmentin 875-125 Tablet*), 1 TAB ORAL TID, (Reported) Aspirin (Aspirin), 81 MG PO BID, (Reported) Carvedilol (Coreg), 6.25 MG ORAL DAILY, (Reported) Furosemide* (Lasix*), 30 MG ORAL BID, (Reported) Hydralazine HCl (Hydralazine HCl), 10 MG ORAL DAILY, (Reported) Hydrochlorothiazide* (Hydrochlorothiazide*), 50 MG ORAL BID, (Reported) Metolazone (Metolazone), 2.5 MG PO DAILY, (Reported) Discontinued Medications Allopurinol* (Allopurinol*), 200 MG ORAL DAILY Discontinued Reason: Therapy completed Atorvastatin Calcium* (Atorvastatin Calcium*), 40 MG ORAL BEDTIME, (Reported) Discontinued Reason: Therapy completed Lisinopril (Lisinopril*), 5 MG ORAL DAILY, (Reported) Discontinued Reason: Therapy completed Metolazone (Metolazone), 5 MG ORAL DAILY Discontinued Reason: Therapy completed Pantoprazole Sodium (Protonix), 20 MG ORAL DAILY, (Reported) Discontinued Reason: Therapy completed Torsemide* (Demadex*), 40 MG ORAL DAILY Discontinued Reason: Therapy completed Patient History Healthcare decision maker Resuscitation status Advanced Directive on File Review of Systems ROS Narrative Constitutional: Reports: no symptoms HEENT: Reports: no symptoms Cardiovascular: Reports: no symptoms Respiratory: Reports: no symptoms Gastrointestinal/Abdominal: Reports: no symptoms Genitourinary: Reports: no symptoms Neurologic/Psychiatric: Reports: no symptoms Endocrine: Reports: no symptoms Hematologic/Lymphatic: Reports: no symptoms Physical Exam Physical Exam Narrative General Appearance: no apparent distress, alert EENT: PERRL/EOMI, normal ENT inspection Neck: non-tender, normal alignment Cardiovascular: normal rate, regular rhythm Respiratory/Chest: decreased breath sounds Abdomen: non tender, soft Extremities: non-tender Edema: trace edema Neurologic: alert, oriented x 3 Last 24 Hour Vital Signs Date Time Temp Pulse Resp B/P (MAP) Pulse Ox O2 Delivery O2 Flow Rate FiO2 12/06/19 12:00 97.5 102 22 118/84 (95) 95 12/06/19 11:54 97.7 12/06/19 10:14 101 12/06/19 09:48 96 110/84 12/06/19 09:47 110/84 12/06/19 08:00 97.7 96 20 110/84 (93) 95 12/06/19 04:00 98.2 22 121/87 (98) 97 12/06/19 04:00 101 12/06/19 00:00 98.2 92 22 107/71 (83) 97 12/06/19 00:00 95 12/05/19 23:31 99.0 12/05/19 21:00 Nasal Cannula 4.0 12/05/19 20:54 99.0 12/05/19 20:17 101 111/64 12/05/19 20:00 97 12/05/19 20:00 101.7 101 20 111/64 (80) 100 12/05/19 16:00 97.7 95 20 113/82 (92) 98 12/05/19 16:00 95 Intake and Output 12/05/19 12/06/19 19:00 07:00 Intake Total 480 ml 420 ml Output Total 850 ml 400 ml Balance -370 ml 20 ml Intake Oral 480 ml 420 ml Output Urine Total 850 ml 400 ml # Bowel Movements 1 1 Height (Feet): 5 Height (Inches): 3.00 Weight (Pounds): 189 Medications Current Medications Medications (Trade) Dose Ordered Sig/Marybeth Route PRN Reason Start Time Stop Time Status Last Admin Dose Admin Acetaminophen (Tylenol) 650 mg Q6H PRN ORAL For Headache and fever >100.2 12/04/19 16:30 01/03/20 16:29 12/05/19 20:24 Albuterol Sulfate (Proventil) 2.5 mg Q6HRT PRN HHN Shortness of Breath 12/05/19 22:15 12/10/19 22:14 Allopurinol (Zyloprim) 200 mg DAILY ORAL 12/04/19 09:00 01/03/20 08:59 12/06/19 09:48 Aspirin (ASA) 81 mg DAILY ORAL 12/04/19 09:00 01/18/20 08:59 12/06/19 09:47 Carvedilol (Coreg) 3.125 mg Q12HR ORAL 12/04/19 21:00 01/02/20 20:59 12/06/19 09:48 Furosemide (Lasix) 40 mg DAILY IV 12/04/19 09:00 01/03/20 08:59 12/06/19 09:41 Lisinopril (ZestriL) 5 mg DAILY ORAL 12/04/19 09:00 01/03/20 08:59 12/06/19 09:47 Methylprednisolone Sodium Succinate (Solu-MEDROL) 40 mg EVERY 12 HOURS IVP 12/04/19 11:45 03/03/20 11:44 12/06/19 09:45 Morphine Sulfate (Morphine Sulfate) 1 mg Q6H PRN IVP Moderate Pain (Pain Scale 4-6) 12/06/19 04:30 12/12/19 15:44 12/06/19 11:24 Nitroglycerin (Ntg) 1 patch Q24H PRN TDERMAL CHEST PAIN 12/03/19 15:00 01/02/20 14:59 Ondansetron HCl (Zofran) 4 mg Q6H PRN IVP Nausea & Vomiting 12/03/19 14:00 01/02/20 13:59 Spironolactone (Aldactone) 25 mg DAILY ORAL 12/05/19 09:00 01/04/20 08:59 12/06/19 09:47 Assessment/Plan Assessment/Plan: (1) CHF (2) Chest pain (3) Peripheral neuropathy Patient will be continued on morphine as needed. D/w Dr. Renteria and he concurred. Thank you for consultation Tremayne Fenton Dec 06, 2019 13:44
[2019-12-06 16:00] VITALS: BP 120/84
--- NOTE | 2019-12-06 16:57 | Cardiac Electrophysiology PN ---
Assessment/Plan Assessment/Plan 1. Exacerbation of congestive heart failure in this patient with nonischemic cardiomyopathy, EF of 10% to 15%. Continue Coreg, Lasix, lisinopril and Aldactone. Will schedule for ICD after becomes Euvolemic and before discharge next week. 2. Recurrent long runs of VT. ICD before DC 3. History of atrial flutter. On Coreg. 4. Hypertension. Continue current heart failure therapy. 5. History of Graves disease. 6. Morbid obesity. DW RN Subjective Subjective BP better. Echo EF 10%. In SR. Continues with runs of nonsustained VT up to 12 beats Objective Last 24 Hour Vital Signs Date Time Temp Pulse Resp B/P (MAP) Pulse Ox O2 Delivery O2 Flow Rate FiO2 12/06/19 12:00 97 12/06/19 12:00 97.5 102 22 118/84 (95) 95 12/06/19 11:54 97.7 12/06/19 10:14 101 12/06/19 09:48 96 110/84 12/06/19 09:47 110/84 12/06/19 09:00 Nasal Cannula 4.0 12/06/19 08:00 97.7 96 20 110/84 (93) 95 12/06/19 04:00 98.2 22 121/87 (98) 97 12/06/19 04:00 101 12/06/19 00:00 98.2 92 22 107/71 (83) 97 12/06/19 00:00 95 12/05/19 23:31 99.0 12/05/19 21:00 Nasal Cannula 4.0 12/05/19 20:54 99.0 12/05/19 20:17 101 111/64 12/05/19 20:00 97 12/05/19 20:00 101.7 101 20 111/64 (80) 100 Intake and Output 12/05/19 12/06/19 19:00 07:00 Intake Total 480 ml 420 ml Output Total 850 ml 400 ml Balance -370 ml 20 ml Intake Oral 480 ml 420 ml Output Urine Total 850 ml 400 ml # Bowel Movements 1 1 Objective HEAD AND NECK: Positive JVD. LUNGS: Decreased breath sounds. CARDIOVASCULAR: Regular S1 and S2 with no gallop. ABDOMEN: Soft. EXTREMITIES: A 2+ pitting edema. He also has scrotal edema. Spenser Kimble MD Dec 06, 2019 16:57
--- NOTE | 2019-12-06 19:25 | NUR ---
NURSE NOTES: RECEIVED REPORT FROM LOLY MCMULLEN RN. PATIENT AWAKE AND SITTING AT THE EDGE OF BED, AOX4, VERBALLY RESPONSIVE AND ABLE TO MAKE NEEDS KNOWN. NO COMPLAINTS OF PAIN OR DISCOMFORT AT THIS TIME, ALTHOUGH DID INQUIRE ABOUT WHEN NEXT MORPHINE DOSE IS DUE- INFORMED PATIENT HIS MEDICATION IS GIVEN EVERY 6 HOURS NEEDED, AND THE NEXT ONE IS 2342 BASED ON THE LAST TIME HE WAS GIVEN MEDICATION. BREATHING IS EVEN AND UNLABORED ON 4LPM VIA NC, NO S/SX OF DISTRESS- NO COUGH AT THIS TIME. IV SITE ON LFA PATENT, INTACT, ASYMPTOMATIC, AND SALINE-LOCKED. FALL PRECAUTIONS IN PLACE. REMINDED PATIENT TO CALL FOR ASSISTANCE WHEN GETTING OUT OF BED. BED LOCKED AND IN LOWEST POSITION, SIDERAILS UP X 2. CALL LIGHT AND URINAL WITHIN REACH. WILL CONTINUE TO MONITOR FOR ANY CHANGES. Addendum: 12/07/19 at 0736 by Luciana Rick RN *IV SITE LEFT HAND
--- NOTE | 2019-12-06 19:37 | NUR ---
HAND-OFF: Report given to Luciana Victoria RN. Patient sleeping, HOB at 45 degrees, bed in lowest position, call light within reach, pain treated with morphine, IV patent in left forearm 24 gauge, in no apparent distress, side rails up x 3, wheels locked.
[2019-12-06 20:00] VITALS: BP 132/77
--- NOTE | 2019-12-06 20:15 | Progress Note ---
DATE: 12/06/2019 This is a 54-year-old male currently in the bed, still short of breath on and off, and complaining of chest pain. OBJECTIVE: VITAL SIGNS: His blood pressure is 120/84, pulse 95, respirations 20, his temp is 97.9. HEENT: NAD. CHEST: Bilateral decreased breath sounds. CARDIOVASCULAR: Regular rhythm. No gallop. No murmur. ABDOMEN: Soft. EXTREMITIES: No edema GENITOURINARY: Deferred. EXTREMITIES: 1+ edema. Patient has no labs. ASSESSMENT: 1. Acute COPD exacerbation. 2. CHF. 3. Hypertension. 4. Comorbid obesity. PLAN: We will currently continue current treatment. Continue Lasix. Continue albuterol inhaler, spironolactone, carvedilol, aspirin, lisinopril. Titrate his steroid. Discussed with the patient. Dav Cardoza M.D. DR: JORDAN JOB#: [id number] CC:
--- NOTE | 2019-12-06 20:24 | NUR ---
NURSE NOTES: PATIENT REFUSED SOLUMEDROL ADMINISTRATION. PER PATIENT, HE HAS "NEVER" RECEIVED THIS MEDICATION. INFORMED PATIENT THIS MEDICATION IS NOT NEW. EDUCATED HIM ON THE PURPOSE OF THIS MEDICATION, ITS MECHANISM OF ACTION, AND HOW HE CAN BENEFIT FROM THE MEDICATION. PATIENT STILL REFUSED.
[2019-12-07] VITALS: BP 134/87
[2019-12-07] MEDS: Morphine Sulfate 2mg/ml Inj(IV/IM USE ONLY) IVP PRN ×4 (01:28→22:18)
--- NOTE | 2019-12-07 01:30 | NUR ---
NURSE NOTES: PATIENT COMPLAINED OF CHEST PAIN THAT RADIATES TO HIS NECK, RATES IT A 6/10 AND DESCRIBES IT ACHING. OFFERED HIM NITROGLYCERIN PRESCRIBED, BUT PATIENT REFUSED AND REQUESTED HE GET MORPHINE INSTEAD. PAIN MEDICATION GIVEN ORDERED. BP 133/85, HR 100, RR 20, SAO2 98%. WILL MONITOR FOR OVERSEDATION, ALOC, AND DECREASED RESPIRATIONS.
[2019-12-07 04:00] VITALS: BP 140/84
--- NOTE | 2019-12-07 07:35 | NUR ---
HAND-OFF: Report given to GENTRY GALLEGOS. PATIENT IN STABLE CONDITION. PLAN OF CARE ENDORSED.
--- NOTE | 2019-12-07 07:36 | NUR ---
NURSE NOTES: Received patient in bed awake. No SOB or acute distress. IV line intact. HOB elevated. Bed locked in lowest position. Call light within reach. Will continue plan of care.
[2019-12-07 08:00] VITALS: BP 115/80
--- NOTE | 2019-12-07 08:42 | NUR ---
CASE MANAGEMENT:REVIEW 12/07/19 SI: CHF EXACERBATION W/EF 10-15% MASSIVE CARDIOMEGALY. H/O GRAVES DISEASE 97.7 94 20 120/82 100% ON 2L/NC CR+1.5 BNP+2771 IS: IV SOLUMEDROL Q12 IV LASIX QD ALDACTONE PO QD COREG PO Q12 ALLOPURINOL PO QD ASA PO QD LISINOPRIL PO QD : TELEMETRY DCP: FROM HOME PLAN: DIURESIS 2DECHO PENDING
--- NOTE | 2019-12-07 08:46 | NUR ---
CASE MANAGEMENT:REVIEW 12/07/19 SI: CHF EXACERBATION W/EF 10-15% MASSIVE CARDIOMEGALY. H/O GRAVES DISEASE 98.1 98 20 115/80 100% ON 4L IS: IV SOLUMEDROL 40MG Q12 IV LASIX Q12 ALDACTONE PO QD COREG PO Q12 ALLOPURINOL PO QD ASA PO QD LISINOPRIL PO QD : TELEMETRY DCP: FROM HOME PLAN: CONTINUE DIURESIS
--- NOTE | 2019-12-07 09:00 | NUR ---
NURSE NOTES: Transferred to 201-1
[2019-12-07] MEDS: Allopurinol 100mg Tab ORAL SCH (09:01)
[2019-12-07] MEDS: Spironolactone 25mg tab ORAL SCH (09:01)
[2019-12-07] MEDS: Aspirin Baby 81mg ORAL SCH (09:01)
[2019-12-07] MEDS: Lisinopril 2.5mg tab ORAL SCH (09:02)
[2019-12-07] MEDS: Solu-MEDROL 40mg Inj IVP SCH ×2 (09:02→22:16)
--- NOTE | 2019-12-07 09:30 | General Progress Note ---
Assessment/Plan Assessment/Plan: (1) CHF (2) Chest pain (3) Peripheral neuropathy Patient will be continued on morphine as needed. D/w Dr. Renteria and he concurred. Subjective Date patient seen: Dec 07, 2019 Allergies: Coded Allergies: SIMVASTATIN (Verified Allergy, Unknown, 07/03/19) Uncoded Allergies: STATINS (Allergy, Unknown, 08/13/19) Subjective Constitutional: Reports: no symptoms HEENT: Reports: no symptoms Cardiovascular: Reports: no symptoms Respiratory: Reports: no symptoms Gastrointestinal/Abdominal: Reports: no symptoms Genitourinary: Reports: no symptoms Neurologic/Psychiatric: Reports: no symptoms Endocrine: Reports: no symptoms Hematologic/Lymphatic: Reports: no symptoms Subjective: Patient is in bed pain has been tolerated on the Morphine, no new complaints at this time. Objective Last 24 Hour Vital Signs Date Time Temp Pulse Resp B/P (MAP) Pulse Ox O2 Delivery O2 Flow Rate FiO2 12/07/19 09:02 115/80 12/07/19 09:01 98 115/80 12/07/19 08:00 98.1 98 20 115/80 (92) 100 12/07/19 04:00 98.6 100 20 140/84 (102) 97 12/07/19 04:00 98 12/07/19 00:00 98.6 102 20 134/87 (103) 98 12/07/19 00:00 100 12/06/19 21:00 Nasal Cannula 4.0 12/06/19 20:16 99 132/77 12/06/19 20:00 105 12/06/19 20:00 98.2 99 20 132/77 (95) 98 12/06/19 18:12 97.9 12/06/19 16:00 100 12/06/19 16:00 97.9 95 20 120/84 (96) 96 12/06/19 12:00 97 12/06/19 12:00 97.5 102 22 118/84 (95) 95 12/06/19 10:14 101 12/06/19 09:48 96 110/84 12/06/19 09:47 110/84 Intake and Output 12/06/19 12/07/19 19:00 07:00 Intake Total 720 ml Output Total 950 ml 1000 ml Balance -230 ml -1000 ml Intake Oral 720 ml Output Urine Total 950 ml 1000 ml # Voids 2 # Bowel Movements 1 Height (Feet): 5 Height (Inches): 3.00 Weight (Pounds): 189 Objective General Appearance: no apparent distress, alert EENT: PERRL/EOMI, normal ENT inspection Neck: non-tender, normal alignment Cardiovascular: normal rate, regular rhythm Respiratory/Chest: decreased breath sounds Abdomen: non tender, soft Extremities: non-tender Edema: trace edema Neurologic: alert, oriented x 3 Tremayne Fenton Dec 07, 2019 09:30
--- NOTE | 2019-12-07 11:17 | NUR ---
NURSE NOTES: Patient with episode of 7 beats of Vtach, Dr Kimble notified, awaiting callback.
[2019-12-07] MEDS: cefTRIAXone 1gm/D5W 55ml IVPB SCH ×2 (11:25)
[2019-12-07 12:00] VITALS: BP 109/78
--- NOTE | 2019-12-07 13:51 | Cardiac Electrophysiology PN ---
Assessment/Plan Assessment/Plan 1. Exacerbation of congestive heart failure in this patient with nonischemic cardiomyopathy, EF of 10% to 15%. Continue Coreg, Lasix, lisinopril and Aldactone. Increase Lasix to 80 iv BID Will schedule for ICD after becomes Euvolemic and before discharge next week. 2. Recurrent long runs of VT. ICD before DC 3. History of atrial flutter. On Coreg. 4. Hypertension. Continue current heart failure therapy. 5. History of Graves disease. 6. Morbid obesity. ESDRAS RN Subjective Subjective EF 10%. In SR. Continues with runs of nonsustained VT up to 12 beats. Still SOB unable to lay flat Objective Last 24 Hour Vital Signs Date Time Temp Pulse Resp B/P (MAP) Pulse Ox O2 Delivery O2 Flow Rate FiO2 12/07/19 12:00 92 12/07/19 12:00 97.5 96 20 109/78 (88) 100 12/07/19 09:02 115/80 12/07/19 09:01 98 115/80 12/07/19 09:00 Nasal Cannula 4.0 12/07/19 08:00 98.1 98 20 115/80 (92) 100 12/07/19 08:00 99 12/07/19 04:00 98.6 100 20 140/84 (102) 97 12/07/19 04:00 98 12/07/19 00:00 98.6 102 20 134/87 (103) 98 12/07/19 00:00 100 12/06/19 21:00 Nasal Cannula 4.0 12/06/19 20:16 99 132/77 12/06/19 20:00 105 12/06/19 20:00 98.2 99 20 132/77 (95) 98 12/06/19 18:12 97.9 12/06/19 16:00 100 12/06/19 16:00 97.9 95 20 120/84 (96) 96 Intake and Output 12/06/19 12/07/19 19:00 07:00 Intake Total 720 ml Output Total 950 ml 1000 ml Balance -230 ml -1000 ml Intake Oral 720 ml Output Urine Total 950 ml 1000 ml # Voids 2 # Bowel Movements 1 Objective HEAD AND NECK: Positive JVD. LUNGS: Decreased breath sounds. CARDIOVASCULAR: Regular S1 and S2 with no gallop. ABDOMEN: Soft. EXTREMITIES: A 2+ pitting edema. He also has scrotal edema. Spenser Kimble MD Dec 07, 2019 13:51
--- NOTE | 2019-12-07 14:30 | Pulmonology Progress Note ---
Subjective Interval Events: None new Constitutional: Reports: no symptoms HEENT: Repors: no symptoms Respiratory: Reports: no symptoms Cardiovascular: Reports: no symptoms Gastrointestinal/Abdominal: Reports: no symptoms Genitourinary: Reports: no symptoms Allergies: Coded Allergies: SIMVASTATIN (Verified Allergy, Unknown, 07/03/19) Uncoded Allergies: STATINS (Allergy, Unknown, 08/13/19) Objective Last 24 Hour Vital Signs Date Time Temp Pulse Resp B/P (MAP) Pulse Ox O2 Delivery O2 Flow Rate FiO2 12/07/19 12:00 92 12/07/19 12:00 97.5 96 20 109/78 (88) 100 12/07/19 09:02 115/80 12/07/19 09:01 98 115/80 12/07/19 09:00 Nasal Cannula 4.0 12/07/19 08:00 98.1 98 20 115/80 (92) 100 12/07/19 08:00 99 12/07/19 04:00 98.6 100 20 140/84 (102) 97 12/07/19 04:00 98 12/07/19 00:00 98.6 102 20 134/87 (103) 98 12/07/19 00:00 100 12/06/19 21:00 Nasal Cannula 4.0 12/06/19 20:16 99 132/77 12/06/19 20:00 105 12/06/19 20:00 98.2 99 20 132/77 (95) 98 12/06/19 18:12 97.9 12/06/19 16:00 100 12/06/19 16:00 97.9 95 20 120/84 (96) 96 Intake and Output 12/06/19 12/07/19 19:00 07:00 Intake Total 720 ml Output Total 950 ml 1000 ml Balance -230 ml -1000 ml Intake Oral 720 ml Output Urine Total 950 ml 1000 ml # Voids 2 # Bowel Movements 1 General Appearance: no acute distress HEENT: normocephalic Respiratory: chest wall non-tender, lungs clear Abdomen: normal bowel sounds Extremities: no cyanosis Current Medications Medications (Trade) Dose Ordered Sig/Marybeth Route PRN Reason Start Time Stop Time Status Last Admin Dose Admin Acetaminophen (Tylenol) 650 mg Q6H PRN ORAL For Headache and fever >100.2 12/04/19 16:30 01/03/20 16:29 12/05/19 20:24 Albuterol Sulfate (Proventil) 2.5 mg Q6HRT PRN HHN Shortness of Breath 12/05/19 22:15 12/10/19 22:14 Allopurinol (Zyloprim) 200 mg DAILY ORAL 12/04/19 09:00 01/03/20 08:59 12/07/19 09:01 Aspirin (ASA) 81 mg DAILY ORAL 12/04/19 09:00 01/18/20 08:59 12/07/19 09:01 Carvedilol (Coreg) 3.125 mg Q12HR ORAL 12/04/19 21:00 01/02/20 20:59 12/07/19 09:01 Ceftriaxone Sodium 1 gm/ Dextrose 55 ml @ 110 mls/hr Q24H IVPB 12/07/19 11:15 12/12/19 11:14 12/07/19 11:25 Furosemide (Lasix) 80 mg Q12HR IV 12/07/19 21:00 01/05/20 17:59 Lisinopril (ZestriL) 5 mg DAILY ORAL 12/04/19 09:00 01/03/20 08:59 12/07/19 09:02 Methylprednisolone Sodium Succinate (Solu-MEDROL) 40 mg EVERY 12 HOURS IVP 12/04/19 11:45 03/03/20 11:44 12/07/19 09:02 Morphine Sulfate (Morphine Sulfate) 1 mg Q6H PRN IVP Moderate Pain (Pain Scale 4-6) 12/06/19 04:30 12/12/19 15:44 12/07/19 09:46 Nitroglycerin (Ntg) 1 patch Q24H PRN TDERMAL CHEST PAIN 12/03/19 15:00 01/02/20 14:59 Ondansetron HCl (Zofran) 4 mg Q6H PRN IVP Nausea & Vomiting 12/03/19 14:00 01/02/20 13:59 Spironolactone (Aldactone) 25 mg DAILY ORAL 12/05/19 09:00 01/04/20 08:59 12/07/19 09:01 Assessment/Plan Assessment/Plan IMPRESSION: 1. Decompensated congestive heart failure/systolic heart failure. 2. Cardiomyopathy. 3. Hypertension. DISCUSSION: Patient has a small right effusion which has decreased. He has a right lung consolidation. I doubt pneumonia given lack of fever or leukocytosis. I will follow carefully. 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 May need AICD Hong Gross Omar Syed MD Dec 07, 2019 14:30
[2019-12-07 16:00] VITALS: BP 103/72
--- NOTE | 2019-12-07 16:29 | Progress Note ---
DATE: 12/07/2019 SUBJECTIVE: Patient is still in the bed, still short of breath while he is sitting in the bed and he feels more short of breath on exertion. He has no fever or chills. His leg swelling is improving. Patient is asking for antibiotics. PHYSICAL EXAMINATION: VITAL SIGNS: Blood pressure is 115/80, pulse 98, no fever. HEENT: NAD. CHEST: Bilaterally decreased breath sounds. CARDIOVASCULAR: Regular rhythm. No gallop. No murmur. ABDOMEN: Soft. Positive bowel sounds. Nontender. EXTREMITIES: No edema. GENITOURINARY: Deferred. Patient has no labs today. ASSESSMENT: 1. CHF. 2. Acute bronchitis. 3. COPD. 4. Hypertension. PLAN: We will add antibiotic. Continue Solu-Medrol. Continue bronchodilator treatment. Recommended patient to continue the fluids as well as salt and exercise. Dav Cardoza M.D. DR: CHAD JOB#: [id number] CC:
--- NOTE | 2019-12-07 19:18 | NUR ---
HAND-OFF: Report given to Lulu RINALDI.
[2019-12-07 20:00] VITALS: BP 117/79
--- NOTE | 2019-12-07 20:00 | NUR ---
NURSE NOTES: RECEIVED PATIENT LYING IN BED, AWAKE, ALERT/ORIENTED X3, VERBALLY RESPONSIVE, VISION DEFICIT. IV INTACT TO LEFT HAND/GAUGE 24, SALINE LOCK. NO SIGNS AND SYMPTOMS OF ACUTE CARDIO RESPIRATORY DISTRESS/SHORTNESS OF BREATH ON EXERTION, BILATERAL LOWER EXTREMITIES EDEMATOUS, ENCOURAGED ELEVATION, CONTINUE ON PRINCIPAL LIBRARIAN. EDUCATED PATIENT ON PAIN MANAGEMENT/SCHEDULE, VERBALIZED UNDERSTANDING. NO COMPLAINTS OF GI DISCOMFORT, NO N/V/D, URINAL AT BEDSIDE. SIDE RAILS UP X2 FOR MOBILITY, BED IN LOWEST POSITION FOR SAFETY, ENCOURAGED PATIENT TO UTILIZE CALL LIGHT FOR ASSISTANCE, VERBALIZED UNDERSTANDING. CONTINUE WITH CURRENT PLAN OF CARE. NAD.
[2019-12-08] VITALS: BP 121/75
[2019-12-08 04:00] VITALS: BP 124/88
--- NOTE | 2019-12-08 06:05 | NUR ---
NURSE NOTES: RESTED WELL, NO SIGNIFICANT CHANGE OF CONDITION NOTED THROUGHOUT THE NIGHT. SAFETY MAINTAINED. NAD.
--- NOTE | 2019-12-08 07:12 | NUR ---
HAND-OFF: Report given to GENTRY GALLEGOS.
--- NOTE | 2019-12-08 07:36 | NUR ---
NURSE NOTES: Received patient in bed asleep. O2 via NC in place, no SOB or acute distress. IV line intact. HOB elevated. Bed locked in lowest position. Call light within reach. Will continue plan of care.
[2019-12-08 08:00] VITALS: BP 115/77
[2019-12-08 08:39] LABS: HEMOGLOBIN 10.6 G/DL (14.2-18.0); MEAN CORPUSCULAR VOLUME 104 FL (80-99); PLATELET COUNT 90 K/UL (150-450); RED BLOOD COUNT 3.47 M/UL (4.70-6.10); RED CELL DISTRIBUTION WIDTH 16.1 % (11.6-14.8); WHITE BLOOD COUNT 6.7 K/UL (4.8-10.8)
[2019-12-08 09:03] LABS: ANION GAP 1 mmol/L (5-15); BLOOD UREA NITROGEN 38 mg/dL (7-18); CALCIUM 8.5 MG/DL (8.5-10.1); CHLORIDE 96 MMOL/L (98-107); CREATININE 1.4 MG/DL (0.55-1.30); POTASSIUM 4.8 MMOL/L (3.5-5.1); SODIUM 138 MMOL/L (136-145)
[2019-12-08] MEDS: Solu-MEDROL 40mg Inj IVP SCH ×2 (09:03→20:49)
[2019-12-08] MEDS: Allopurinol 100mg Tab ORAL SCH (09:03)
[2019-12-08] MEDS: Spironolactone 25mg tab ORAL SCH (09:03)
[2019-12-08] MEDS: Lisinopril 2.5mg tab ORAL SCH (09:03)
[2019-12-08] MEDS: Aspirin Baby 81mg ORAL SCH (09:04)
[2019-12-08] MEDS: Morphine Sulfate 2mg/ml Inj(IV/IM USE ONLY) IVP PRN ×2 (09:04→20:49)
[2019-12-08 09:05] LABS: CARBON DIOXIDE 42 MMOL/L (21-32)
--- NOTE | 2019-12-08 09:19 | NUR ---
NURSE NOTES: CO2 level at 42, Dr Baca informed, awaiting callback. Patient's O2 via NC at 7LPM, RN lowered down to 4 but patient refused and insisted to increase. RN explained risks but patient insisted. RN raised O2 to 6LPM, Dr Baca informed, awaiting callback. Addendum: 12/08/19 at 1322 by Alice Teixeira RN NURSE NOTES: Spoke with Dr Baca, no new orders.
[2019-12-08] MEDS: cefTRIAXone 1gm/D5W 55ml IVPB SCH ×2 (11:20)
[2019-12-08 12:00] VITALS: BP 117/72
--- NOTE | 2019-12-08 13:20 | NUR ---
NURSE NOTES: KWAME [id number] Cardoza, awaiting response. Addendum: 12/08/19 at 1400 by Alice Teixeira RN NURSE NOTES: KWAME [id number]. Dr Cardoza responded, no new orders. Asked RN to inform cardio. Dr Kimble made aware, awaiting response.
--- NOTE | 2019-12-08 14:00 | NUR ---
NURSE NOTES: Dr Kimble made aware of episode of paroxysmal Aflutter with RVR at 0751 today and BNP 8424, no new orders.
--- NOTE | 2019-12-08 15:10 | Pulmonology Progress Note ---
Subjective Interval Events: None new Constitutional: Reports: no symptoms HEENT: Repors: no symptoms Respiratory: Reports: no symptoms Cardiovascular: Reports: no symptoms Gastrointestinal/Abdominal: Reports: no symptoms Genitourinary: Reports: no symptoms Allergies: Coded Allergies: SIMVASTATIN (Verified Allergy, Unknown, 07/03/19) Uncoded Allergies: STATINS (Allergy, Unknown, 08/13/19) Objective Last 24 Hour Vital Signs Date Time Temp Pulse Resp B/P (MAP) Pulse Ox O2 Delivery O2 Flow Rate FiO2 12/08/19 12:00 99 12/08/19 12:00 97.1 70 19 117/72 (87) 97 12/08/19 09:04 96 115/77 12/08/19 09:03 115/77 12/08/19 09:00 Nasal Cannula 4.0 12/08/19 08:00 98.8 96 19 115/77 (90) 98 12/08/19 08:00 92 12/08/19 07:51 141 12/08/19 04:00 94 12/08/19 04:00 97.4 94 20 124/88 (100) 97 12/08/19 00:00 97 12/08/19 00:00 98.7 95 20 121/75 (90) 99 12/07/19 22:48 98.0 12/07/19 22:17 94 110/80 12/07/19 20:59 89 12/07/19 20:29 Nasal Cannula 4.0 12/07/19 20:00 96.3 94 22 117/79 (92) 98 12/07/19 16:00 98.0 93 20 103/72 (82) 100 12/07/19 16:00 89 Intake and Output 12/07/19 12/08/19 19:00 07:00 Intake Total 500 ml 600 ml Output Total 2000 ml 1600 ml Balance -1500 ml -1000 ml Intake Oral 500 ml 600 ml Output Urine Total 2000 ml 1600 ml # Voids 6 General Appearance: no acute distress HEENT: normocephalic Respiratory: chest wall non-tender, lungs clear Abdomen: normal bowel sounds Extremities: no cyanosis Laboratory Tests 12/08/19 06:15: White Blood Count 6.7, Red Blood Count 3.47L, Hemoglobin 10.6L, Hematocrit 36.0L , Mean Corpuscular Volume 104H, Mean Corpuscular Hemoglobin 30.6, Mean Corpuscular Hemoglobin Concent 29.5L, Red Cell Distribution Width 16.1H, Platelet Count 90L, Mean Platelet Volume 7.4, Neutrophils (%) (Auto) , Lymphocytes (%) (Auto) , Monocytes (%) (Auto) , Eosinophils (%) (Auto) , Basophils (%) (Auto) , Differential Total Cells Counted 100, Neutrophils % ( Manual) 90H, Lymphocytes % (Manual) 5L, Monocytes % (Manual) 5, Eosinophils % ( Manual) 0, Basophils % (Manual) 0, Band Neutrophils 0, Platelet Estimate DecreasedL, Platelet Morphology Normal, Hypochromasia 1+, Anisocytosis 1+, Macrocytosis 1+, Sodium Level 138, Potassium Level 4.8, Chloride Level 96L, Carbon Dioxide Level 42*H, Anion Gap 1L, Blood Urea Nitrogen 38H, Creatinine 1.4H, Estimat Glomerular Filtration Rate > 60, Glucose Level 132H, Calcium Level 8.5, Pro-B-Type Natriuretic Peptide 8424H Current Medications Medications (Trade) Dose Ordered Sig/Marybeth Route PRN Reason Start Time Stop Time Status Last Admin Dose Admin Acetaminophen (Tylenol) 650 mg Q6H PRN ORAL For Headache and fever >100.2 12/04/19 16:30 01/03/20 16:29 12/05/19 20:24 Albuterol Sulfate (Proventil) 2.5 mg Q6HRT PRN HHN Shortness of Breath 12/05/19 22:15 12/10/19 22:14 Allopurinol (Zyloprim) 200 mg DAILY ORAL 12/04/19 09:00 01/03/20 08:59 12/08/19 09:03 Aspirin (ASA) 81 mg DAILY ORAL 12/04/19 09:00 01/18/20 08:59 12/08/19 09:04 Carvedilol (Coreg) 3.125 mg Q12HR ORAL 12/04/19 21:00 01/02/20 20:59 12/08/19 09:04 Ceftriaxone Sodium 1 gm/ Dextrose 55 ml @ 110 mls/hr Q24H IVPB 12/07/19 11:15 12/12/19 11:14 12/08/19 11:20 Furosemide (Lasix) 80 mg Q12HR IV 12/07/19 21:00 01/05/20 17:59 12/08/19 09:04 Lisinopril (ZestriL) 5 mg DAILY ORAL 12/04/19 09:00 01/03/20 08:59 12/08/19 09:03 Methylprednisolone Sodium Succinate (Solu-MEDROL) 40 mg EVERY 12 HOURS IVP 12/04/19 11:45 03/03/20 11:44 12/08/19 09:03 Morphine Sulfate (Morphine Sulfate) 1 mg Q6H PRN IVP Moderate Pain (Pain Scale 4-6) 12/06/19 04:30 12/12/19 15:44 12/08/19 09:04 Nitroglycerin (Ntg) 1 patch Q24H PRN TDERMAL CHEST PAIN 12/03/19 15:00 01/02/20 14:59 Ondansetron HCl (Zofran) 4 mg Q6H PRN IVP Nausea & Vomiting 12/03/19 14:00 01/02/20 13:59 Spironolactone (Aldactone) 25 mg DAILY ORAL 12/05/19 09:00 01/04/20 08:59 12/08/19 09:03 Assessment/Plan Assessment/Plan IMPRESSION: 1. Decompensated congestive heart failure/systolic heart failure. 2. Cardiomyopathy. 3. Hypertension. DISCUSSION: Patient has a small right effusion which has decreased. He has a right lung consolidation. I doubt pneumonia given lack of fever or leukocytosis. I will follow carefully. 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 May need AICD PAtient refusing to lower FiO2 Hong Gross Omar Syed MD Dec 08, 2019 15:10
--- NOTE | 2019-12-08 15:41 | Cardiac Electrophysiology PN ---
Assessment/Plan Assessment/Plan 1. Exacerbation of congestive heart failure in this patient with nonischemic cardiomyopathy, EF of 10% to 15%. Continue Lasix, lisinopril and Aldactone and Lasix 80 iv BID. DC Coreg,Start Dobutamine 5 mc/kg/min Will schedule for ICD after becomes Euvolemic and before discharge 2. Recurrent long runs of VT. ICD before DC 3. History of atrial flutter. 4. Hypertension. Continue current heart failure therapy. 5. History of Graves disease. 6. Morbid obesity. ESDRAS RN Subjective Subjective EF 10%. In SR. Had another 13beats of VT. Still SOB unable to lay flat Objective Last 24 Hour Vital Signs Date Time Temp Pulse Resp B/P (MAP) Pulse Ox O2 Delivery O2 Flow Rate FiO2 12/08/19 12:00 99 12/08/19 12:00 97.1 70 19 117/72 (87) 97 12/08/19 09:04 96 115/77 12/08/19 09:03 115/77 12/08/19 09:00 Nasal Cannula 4.0 12/08/19 08:00 98.8 96 19 115/77 (90) 98 12/08/19 08:00 92 12/08/19 07:51 141 12/08/19 04:00 94 12/08/19 04:00 97.4 94 20 124/88 (100) 97 12/08/19 00:00 97 12/08/19 00:00 98.7 95 20 121/75 (90) 99 12/07/19 22:48 98.0 12/07/19 22:17 94 110/80 12/07/19 20:59 89 12/07/19 20:29 Nasal Cannula 4.0 12/07/19 20:00 96.3 94 22 117/79 (92) 98 12/07/19 16:00 98.0 93 20 103/72 (82) 100 12/07/19 16:00 89 Intake and Output 12/07/19 12/08/19 19:00 07:00 Intake Total 500 ml 600 ml Output Total 2000 ml 1600 ml Balance -1500 ml -1000 ml Intake Oral 500 ml 600 ml Output Urine Total 2000 ml 1600 ml # Voids 6 Laboratory Tests Test 12/08/19 06:15 White Blood Count 6.7 K/UL (4.8-10.8) Red Blood Count 3.47 M/UL (4.70-6.10) L Hemoglobin 10.6 G/DL (14.2-18.0) L Hematocrit 36.0 % (42.0-52.0) L Mean Corpuscular Volume 104 FL (80-99) H Mean Corpuscular Hemoglobin 30.6 PG (27.0-31.0) Mean Corpuscular Hemoglobin Concent 29.5 G/DL (32.0-36.0) L Red Cell Distribution Width 16.1 % (11.6-14.8) H Platelet Count 90 K/UL (150-450) L Mean Platelet Volume 7.4 FL (6.5-10.1) Neutrophils (%) (Auto) % (45.0-75.0) Lymphocytes (%) (Auto) % (20.0-45.0) Monocytes (%) (Auto) % (1.0-10.0) Eosinophils (%) (Auto) % (0.0-3.0) Basophils (%) (Auto) % (0.0-2.0) Differential Total Cells Counted 100 Neutrophils % (Manual) 90 % (45-75) H Lymphocytes % (Manual) 5 % (20-45) L Monocytes % (Manual) 5 % (1-10) Eosinophils % (Manual) 0 % (0-3) Basophils % (Manual) 0 % (0-2) Band Neutrophils 0 % (0-8) Platelet Estimate Decreased L Platelet Morphology Normal Hypochromasia 1+ Anisocytosis 1+ Macrocytosis 1+ Sodium Level 138 MMOL/L (136-145) Potassium Level 4.8 MMOL/L (3.5-5.1) Chloride Level 96 MMOL/L (98-107) L Carbon Dioxide Level 42 MMOL/L (21-32) *H Anion Gap 1 mmol/L (5-15) L Blood Urea Nitrogen 38 mg/dL (7-18) H Creatinine 1.4 MG/DL (0.55-1.30) H Estimat Glomerular Filtration Rate > 60 mL/min (>60) Glucose Level 132 MG/DL (74-106) H Calcium Level 8.5 MG/DL (8.5-10.1) Pro-B-Type Natriuretic Peptide 8424 pg/mL (0-125) H Objective HEAD AND NECK: Positive JVD. LUNGS: Decreased breath sounds. CARDIOVASCULAR: Regular S1 and S2 with no gallop. ABDOMEN: Soft. EXTREMITIES: A 2+ pitting edema. He also has scrotal edema. Spenser Kimble MD Dec 08, 2019 15:41
[2019-12-08] MEDS ORDERED: DOBUTamine Inj 500 MG in D5W 210 ML IV SCH ×2 (15:45→17:00)
[2019-12-08 16:00] VITALS: BP 119/77
--- NOTE | 2019-12-08 16:45 | Progress Note ---
DATE: 12/08/2019 This is an elderly male who came to the emergency room for shortness of breath, hypoxia. The patient was found to have CHF. The patient is still short of breath, hypoxic, also had 1+ edema. The patient is physically doing better. He has also had a lot of back pain, has been on morphine and other pain medications. PHYSICAL EXAMINATION: VITAL SIGNS: Blood pressure is 130/70, pulse 84, respirations 18 to 24, temperature is no fever. SKIN: Good skin turgor. HEENT: NAD. NECK: Mild JVD. CHEST: Bilateral decreased breath sounds. CARDIOVASCULARLY: Regular rhythm. No gallop. No murmur. ABDOMEN: Soft. Positive bowel sounds. Nontender. EXTREMITIES: No edema. GENITOURINARY: Deferred. LABS: Patient has no labs today. ASSESSMENT: 1. Acute COPD exacerbation. 2. CHF, decompensated. 3. Hypertension. 4. Chronic back pain. 5. Overweight. PLAN: We will currently continue 2-gram sodium diet. Continue Lasix. Continue bronchodilator treatments. Cut back on steroid. Cardiology and Pulmonary are on case. aDv Cardoza M.D. DR: JORDAN JOB#: [id number] CC:
--- NOTE | 2019-12-08 16:54 | NUR ---
NURSE NOTES: IV line out, for reinsertion.
--- NOTE | 2019-12-08 17:00 | NUR ---
NURSE NOTES: IV line reinserted to right hand g22. Dobutamine drip started.
--- NOTE | 2019-12-08 19:31 | NUR ---
HAND-OFF: Report given to Lisette RINALDI, Ailyn RINALDI.
--- NOTE | 2019-12-08 19:38 | NUR ---
NURSE NOTES: Received report from Alice RN. Patient was awake laying in bed calm. No signs of acute distress noted; complains of pain. On 6L nasal cannula. Alert oriented x 4. IV in right hand 22G on Dobutamine drip @12.85ml/hr. Bed at lowest position, brakes on, side rails up x2. Call light within reach. Educated patient to call nurse before trying to get up. Will continue to monitor.
[2019-12-08 20:00] VITALS: BP 127/93
[2019-12-09] VITALS (7 sets, daily range): BP systolic 108–129; BP diastolic 17–83
--- NOTE | 2019-12-09 02:24 | NUR ---
NURSE NOTES: Patient adamantly refusing to have Dobutamine drip attached to his IV site at this time despite repeatedly educating him on the importance of receiving therapy as ordered. Patient is AOX4 and does state that he will agree to have Dobutamine drip resumed in one to two hours.
[2019-12-09] MEDS: Morphine Sulfate 2mg/ml Inj(IV/IM USE ONLY) IVP PRN ×3 (02:53→21:43)
--- NOTE | 2019-12-09 06:30 | NUR ---
NURSE NOTES: Patient refusing daily weights and to have his linens changed. Risks and benefits explained; still adamantly refusing.
--- NOTE | 2019-12-09 07:40 | NUR ---
HAND-OFF: Report given to Dave RN and Carolin RN. Patient is awake resting comfortably in bed. In stable condition.
--- NOTE | 2019-12-09 08:05 | Pulmonology Progress Note ---
Subjective Interval Events: None new Constitutional: Reports: no symptoms HEENT: Repors: no symptoms Respiratory: Reports: no symptoms Cardiovascular: Reports: no symptoms Gastrointestinal/Abdominal: Reports: no symptoms Genitourinary: Reports: no symptoms Allergies: Coded Allergies: SIMVASTATIN (Verified Allergy, Unknown, 07/03/19) Uncoded Allergies: STATINS (Allergy, Unknown, 08/13/19) Objective Last 24 Hour Vital Signs Date Time Temp Pulse Resp B/P (MAP) Pulse Ox O2 Delivery O2 Flow Rate FiO2 12/09/19 04:00 98.1 94 22 122/80 (94) 98 12/09/19 04:00 96 12/09/19 00:00 102 12/09/19 00:00 96.7 99 24 126/70 (88) 96 12/08/19 21:00 Nasal Cannula 4.0 12/08/19 20:00 97.9 102 24 127/93 (104) 97 12/08/19 20:00 104 12/08/19 19:40 95 18 97 Nasal Cannula 4.0 36 12/08/19 16:00 103 12/08/19 16:00 98.4 94 19 119/77 (91) 97 12/08/19 12:00 99 12/08/19 12:00 97.1 70 19 117/72 (87) 97 12/08/19 09:04 96 115/77 12/08/19 09:03 115/77 12/08/19 09:00 Nasal Cannula 4.0 Intake and Output 12/08/19 12/09/19 19:00 07:00 Intake Total 1452.85 ml 832.08 ml Output Total 1800 ml 4000 ml Balance -347.15 ml -3167.92 ml Intake Oral 1440 ml 350 ml IV Total 12.85 ml 122.08 ml Other 360 ml Output Urine Total 1800 ml 4000 ml # Voids 3 6 General Appearance: no acute distress HEENT: normocephalic Respiratory: chest wall non-tender, lungs clear Abdomen: normal bowel sounds Extremities: no cyanosis Current Medications Medications (Trade) Dose Ordered Sig/Marybeth Route PRN Reason Start Time Stop Time Status Last Admin Dose Admin Acetaminophen (Tylenol) 650 mg Q6H PRN ORAL For Headache and fever >100.2 12/04/19 16:30 01/03/20 16:29 12/05/19 20:24 Albuterol Sulfate (Proventil) 2.5 mg Q6HRT PRN HHN Shortness of Breath 12/05/19 22:15 12/10/19 22:14 Allopurinol (Zyloprim) 200 mg DAILY ORAL 12/04/19 09:00 01/03/20 08:59 12/08/19 09:03 Aspirin (ASA) 81 mg DAILY ORAL 12/04/19 09:00 01/18/20 08:59 12/08/19 09:04 Ceftriaxone Sodium 1 gm/ Dextrose 55 ml @ 110 mls/hr Q24H IVPB 12/07/19 11:15 12/12/19 11:14 12/08/19 11:20 Dobutamine HCl 500 mg/Dextrose 250 ml @ 12.85 mls/ hr Q19H IV 12/09/19 12:00 12/15/19 11:59 Dobutamine HCl 500 mg/Dextrose 250 ml @ 12.85 mls/ hr Q24H IV 12/08/19 17:00 12/09/19 12:00 12/08/19 17:28 Furosemide (Lasix) 80 mg Q12HR IV 12/07/19 21:00 01/05/20 17:59 12/08/19 20:49 Lisinopril (ZestriL) 5 mg DAILY ORAL 12/04/19 09:00 01/03/20 08:59 12/08/19 09:03 Methylprednisolone Sodium Succinate (Solu-MEDROL) 40 mg EVERY 12 HOURS IVP 12/04/19 11:45 03/03/20 11:44 12/08/19 20:49 Morphine Sulfate (Morphine Sulfate) 1 mg Q6H PRN IVP Moderate Pain (Pain Scale 4-6) 12/06/19 04:30 12/12/19 15:44 12/09/19 02:53 Nitroglycerin (Ntg) 1 patch Q24H PRN TDERMAL CHEST PAIN 12/03/19 15:00 01/02/20 14:59 Ondansetron HCl (Zofran) 4 mg Q6H PRN IVP Nausea & Vomiting 12/03/19 14:00 01/02/20 13:59 Spironolactone (Aldactone) 25 mg DAILY ORAL 12/05/19 09:00 01/04/20 08:59 12/08/19 09:03 Assessment/Plan Assessment/Plan IMPRESSION: 1. Decompensated congestive heart failure/systolic heart failure. 2. Cardiomyopathy. 3. Hypertension. DISCUSSION: Patient has a small right effusion which has decreased. He has a right lung consolidation. I doubt pneumonia given lack of fever or leukocytosis. I will follow carefully. 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 May need AICD Now down to 4L/min O2 Hong Gross Omar Syed MD Dec 09, 2019 08:05
--- NOTE | 2019-12-09 08:09 | NUR ---
NURSE NOTES: Patient sitting up in bed, awake and alert, watching television, eating breakfast, oxygen at 4 liters nasal cannula, dobutamine reconnected and running, into patient right hand 22 gauge, no c/o pain, bed in lowest position, call light within reach, wheels locked, side rails up x 2.
[2019-12-09] MEDS: Solu-MEDROL 40mg Inj IVP SCH ×2 (09:27→21:43)
[2019-12-09] MEDS: Spironolactone 25mg tab ORAL SCH (09:34)
[2019-12-09] MEDS: Aspirin Baby 81mg ORAL SCH (09:35)
[2019-12-09] MEDS: Allopurinol 100mg Tab ORAL SCH (09:35)
[2019-12-09] MEDS: Lisinopril 2.5mg tab ORAL SCH (09:36)
[2019-12-09] MEDS ORDERED: DOBUTamine Inj 500 MG in D5W 210 ML IV SCH ×2 (12:00→16:22)
--- NOTE | 2019-12-09 12:10 | General Progress Note ---
Assessment/Plan Assessment/Plan: (1) CHF (2) Chest pain (3) Peripheral neuropathy Patient will be continued on morphine as needed. D/w Dr. Renteria and he concurred. Subjective Date patient seen: Dec 09, 2019 Time patient seen: 11:30 - AM Allergies: Coded Allergies: SIMVASTATIN (Verified Allergy, Unknown, 07/03/19) Uncoded Allergies: STATINS (Allergy, Unknown, 08/13/19) Subjective Constitutional: Reports: no symptoms HEENT: Reports: no symptoms Cardiovascular: Reports: no symptoms Respiratory: Reports: no symptoms Gastrointestinal/Abdominal: Reports: no symptoms Genitourinary: Reports: no symptoms Neurologic/Psychiatric: Reports: no symptoms Endocrine: Reports: no symptoms Hematologic/Lymphatic: Reports: no symptoms Subjective: Patient is in bed no signs of pain or distress. Pain has been tolerated on the Morphine. No new complaints at this time. Objective Last 24 Hour Vital Signs Date Time Temp Pulse Resp B/P (MAP) Pulse Ox O2 Delivery O2 Flow Rate FiO2 12/09/19 09:36 117/17 12/09/19 09:00 Nasal Cannula 4.0 Nasal Cannula 4.0 12/09/19 08:00 98.1 93 22 117/17 (50) 95 12/09/19 08:00 97 12/09/19 04:00 98.1 94 22 122/80 (94) 98 12/09/19 04:00 96 12/09/19 00:00 102 12/09/19 00:00 96.7 99 24 126/70 (88) 96 12/08/19 21:00 Nasal Cannula 4.0 12/08/19 20:00 97.9 102 24 127/93 (104) 97 12/08/19 20:00 104 12/08/19 19:40 95 18 97 Nasal Cannula 4.0 36 12/08/19 16:00 103 12/08/19 16:00 98.4 94 19 119/77 (91) 97 Intake and Output 12/08/19 12/09/19 19:00 07:00 Intake Total 1452.85 ml 832.08 ml Output Total 1800 ml 4000 ml Balance -347.15 ml -3167.92 ml Intake Oral 1440 ml 350 ml IV Total 12.85 ml 122.08 ml Other 360 ml Output Urine Total 1800 ml 4000 ml # Voids 3 6 Height (Feet): 5 Height (Inches): 3.00 Weight (Pounds): 189 Objective General Appearance: no apparent distress, alert EENT: PERRL/EOMI, normal ENT inspection Neck: non-tender, normal alignment Cardiovascular: normal rate, regular rhythm Respiratory/Chest: decreased breath sounds Abdomen: non tender, soft Extremities: non-tender Edema: trace edema Neurologic: alert, oriented x 3 Tremayne Fenton Dec 09, 2019 12:10
[2019-12-09] MEDS: cefTRIAXone 1gm/D5W 55ml IVPB SCH ×2 (14:27)
--- NOTE | 2019-12-09 15:15 | NUR ---
NURSE NOTES: 1mg of Morphine wasted out of 2mg as ordered. Witnessed by Gilbert Norman.
--- NOTE | 2019-12-09 16:12 | Cardiac Electrophysiology PN ---
Assessment/Plan Assessment/Plan 1. Exacerbation of congestive heart failure in this patient with nonischemic cardiomyopathy, EF of 10% to 15%. Continue Lasix, lisinopril and Aldactone and Lasix 80 iv BID. Decrease Dobutamine to 4 mc/kg/min Will schedule for ICD after becomes Euvolemic, off Dobutamine and before discharge 2. Recurrent long runs of VT. ICD before DC 3. History of atrial flutter. 4. Hypertension. Continue current heart failure therapy. 5. History of Graves disease. 6. Morbid obesity. ESDRAS RN Subjective Subjective EF 10%. In SR. Had another 24 beats of VT. On Dobutamine 5 Mcg/kg/min Objective Last 24 Hour Vital Signs Date Time Temp Pulse Resp B/P (MAP) Pulse Ox O2 Delivery O2 Flow Rate FiO2 12/09/19 15:56 97.7 12/09/19 12:00 97.7 92 20 129/66 (87) 98 90 12/09/19 12:00 101 12/09/19 09:36 117/17 12/09/19 09:00 Nasal Cannula 4.0 Nasal Cannula 4.0 12/09/19 08:01 98.1 93 22 117/71 (86) 95 12/09/19 08:00 98.1 93 22 117/17 (50) 95 12/09/19 08:00 97 12/09/19 04:00 98.1 94 22 122/80 (94) 98 12/09/19 04:00 96 12/09/19 00:00 102 12/09/19 00:00 96.7 99 24 126/70 (88) 96 12/08/19 21:00 Nasal Cannula 4.0 12/08/19 20:00 97.9 102 24 127/93 (104) 97 12/08/19 20:00 104 12/08/19 19:40 95 18 97 Nasal Cannula 4.0 36 Intake and Output 12/08/19 12/09/19 19:00 07:00 Intake Total 1452.85 ml 832.08 ml Output Total 1800 ml 4000 ml Balance -347.15 ml -3167.92 ml Intake Oral 1440 ml 350 ml IV Total 12.85 ml 122.08 ml Other 360 ml Output Urine Total 1800 ml 4000 ml # Voids 3 6 Objective HEAD AND NECK: Positive JVD. LUNGS: Decreased breath sounds. CARDIOVASCULAR: Regular S1 and S2 with no gallop. ABDOMEN: Soft. EXTREMITIES: A 2+ pitting edema. He also has scrotal edema. Spenser Kimble MD Dec 09, 2019 16:12
[2019-12-09] MEDS ORDERED: Heparin1,000 units/500ml Premix(Conc:2 units/ml) IV PRN (17:15)
--- NOTE | 2019-12-09 17:15 | Progress Note ---
DATE: 12/09/2019 SUBJECTIVE: This is a 54-year-old male. Currently sitting in the bed and sleeping. Has episode of V-tach about 20 beats this morning. Patient otherwise asymptomatic. He has short of breath on baseline. PHYSICAL EXAMINATION: VITAL SIGNS: Blood pressure 117/70, pulse 93, respirations 22, saturation 97%, temperature 98.1. HEENT: NAD. Mild JVD. CHEST: Bilaterally decreased breath sounds. CARDIOVASCULAR: Regular rhythm. No gallop. No murmur. ABDOMEN: Soft. Positive bowel sounds. Nontender. EXTREMITIES: No edema. LABORATORY DATA: White count 6.7, hemoglobin 11, hematocrit 36 yesterday, platelets are 104. His BUN 38, creatinine 1.4, potassium 4.8. ASSESSMENT: 1. V-tach nonsustained. 2. COPD. 3. CHF. 4. Hypertension. 5. Cardiomyopathy. PLAN: Patient was placed on dobutamine. Continue Lasix. Continue ceftriaxone. Continue bronchodilator treatment. Spironolactone. Recommended patient to restrict the fluid as well as sodium. Continue carvedilol. Continue aspirin, lisinopril. Ordering magnesium and lytes tomorrow morning. Cardiology and Pulmonary is on the case. Dav Cardoza M.D. DR: CHAD JOB#: [id number] CC:
--- NOTE | 2019-12-09 17:16 | NUR ---
NURSE NOTES: Discussed with Dr. Spenser Kimble need for central line, received order for midline placement, placed order for midline placement and obtained consent for patient. Received order OK to use peripheral line until placement of midline. Addendum: 12/09/19 at 1729 by Carolin Calvin RN ERROR: Provided consent to patient and patient prefers to sign in in the morning.
[2019-12-09] MEDS ORDERED: Lidocaine 1% Plain 30 ml INJ PRN (17:17)
--- NOTE | 2019-12-09 17:30 | NUR ---
NURSE NOTES: Patient refuses to sign release for Midline placement for Dobutamine IV drip. Patient stats "I want to wait until morning." Explained importance of having signatures ready since this will be a STAT procedure in the morning, continued to insist to sign in the morning. Will notify night nurse.
--- NOTE | 2019-12-09 19:28 | NUR ---
HAND-OFF: Report given to Lisette Adams RN. Patient sitting up in bed, awake and alert, bed in lowest position, call light within reach, no c/o pain, urinal at bedside, side rails up x 2, iV patent in right hand running dobutamine, consent ready to be signed by patient in chart for placement of midline in a.m. 12/09/18. In no apparent distress. Addendum: 12/09/19 at 1932 by IMMANUEL STORY RN oxygen at 4 liters nasal cannula.
--- NOTE | 2019-12-09 19:34 | NUR ---
NURSE NOTES: Received report from Dave RN and Carolin RN. Patient was awake laying in bed calm. No signs of acute distress noted; complains of pain. On 4L nasal cannula. Alert oriented x 4. IV in right hand 22G on Dobutamine drip @10.28ml/hr. No erythema, bleeding, or infiltration noted at the IV site. Bed at lowest position, brakes on, side rails up x2. Call light within reach. Educated patient to call nurse before trying to get up. PT aware of PICC mid-line placement in AM. Will continue to monitor.
[2019-12-09] MEDS ORDERED: Dyna-Hex 2% Top Sol 2oz TOPIC SCH (20:00)
--- NOTE | 2019-12-09 20:03 | NUR ---
NURSE NOTES: Per patient, he will sign PICC line placement consent form around 0400.
--- NOTE | 2019-12-09 21:24 | NUR ---
NURSE NOTES: Assessed patient's IV site since Dobutamine drip is running at 4 mcg/kg/hr or 10.28 mls/hr. No erythema, bleeding, or infiltration noted. Patient denies pain or burning sensation at the site at this time and patient is aware that his PICC placement procedure is pending in AM, 12/10/2019. Addendum: 12/09/19 at 2127 by DALIA MCQUEEN RN RN Dobutamine drip running at 4mcg/kg/min*
[2019-12-10] VITALS: BP 135/81
--- NOTE | 2019-12-10 03:20 | NUR ---
NURSE NOTES: Patient's IV site still intact and in place. No signs of erythema, bleeding, or infiltration noted. Dobutamine drip still running at 10.28 mls/hr.
[2019-12-10 04:00] VITALS: BP 129/78
--- NOTE | 2019-12-10 05:24 | NUR ---
NURSE NOTES: Patient adamantly refuses to sign midline placement consent form at this time. Risks and benefits explained. Patient states "I don't care if my arm falls off. Let it fall off. I'll wait for the doctor." Patient still strongly refuses to sign at this time.
[2019-12-10] MEDS: Morphine Sulfate 2mg/ml Inj(IV/IM USE ONLY) IVP PRN ×2 (05:53→15:50)
--- NOTE | 2019-12-10 07:35 | NUR ---
HAND-OFF: Report given to GENTRY Jenkins. Patient is awake sitting on the bed still refusing midline placement consent form. Per patient, he wants to speak to a physician first. In stable condition otherwise.
[2019-12-10 07:40] LABS: ANION GAP 1 mmol/L (5-15); BLOOD UREA NITROGEN 25 mg/dL (7-18); CALCIUM 9.2 MG/DL (8.5-10.1); CHLORIDE 94 MMOL/L (98-107); CREATININE 1.4 MG/DL (0.55-1.30); POTASSIUM 4.2 MMOL/L (3.5-5.1); SODIUM 138 MMOL/L (136-145)
[2019-12-10 08:00] VITALS: BP 127/75
--- NOTE | 2019-12-10 08:11 | NUR ---
NURSE NOTES: Received patient in bed awake, O2 via NC in place, no SOB or acute distress. IV line intact. Refuses to sign midline placement consent, wants to speak with physician first. Explained cons but still refuses. HOB elevated. Bed locked in lowest position. Call light within reach. Will continue plan of care.
[2019-12-10 08:17] LABS: CARBON DIOXIDE 45 MMOL/L (21-32)
--- NOTE | 2019-12-10 08:24 | NUR ---
NURSE NOTES: CO2 45, Dr shepard notified, awaiting response
--- NOTE | 2019-12-10 08:28 | NUR ---
NURSE NOTES: Patient asked another RN to stop dobutamine drip and disconnect him. Explained risks but still refuses to be connected back. Will notify MD. Addendum: 12/10/19 at 0835 by Alice Teixeira RN NURSE NOTES: Dr Kimble made aware that patient refuses dobutamine drip and signing consent for midline placement wants to talk to MD first. Awaiting callback.
[2019-12-10] MEDS: Solu-MEDROL 40mg Inj IVP SCH (08:47)
[2019-12-10] MEDS: Aspirin Baby 81mg ORAL SCH (08:47)
[2019-12-10] MEDS: Allopurinol 100mg Tab ORAL SCH (08:47)
[2019-12-10] MEDS: Lisinopril 2.5mg tab ORAL SCH (08:47)
[2019-12-10] MEDS: Spironolactone 25mg tab ORAL SCH (08:47)
--- NOTE | 2019-12-10 08:52 | NUR ---
CASE MANAGEMENT:REVIEW 12/10/19 SI: CHF EXACERBATION W/EF 10-15% MASSIVE CARDIOMEGALY. H/O GRAVES DISEASE 97.3 88 20 127/75 93% ON 4L/NC CO2+45 BUN+25 CR+1.4 IS: DOBUTAMINE GTT~ ON HOLD PER PATIENT'S REQUEST IV SOLUMEDROL 40MG Q12 IV ROCEPHIN Q24 IV LASIX Q12 ALDACTONE PO QD COREG PO Q12 ALLOPURINOL PO QD ASA PO QD LISINOPRIL PO QD IV MORPHINE Q6HRS PRN : TELEMETRY DCP: FROM HOME PLAN: CONTINUE DIURESIS PICC LINE ORDERED ~ ON HOLD PER PATIENT'S REQUEST
--- NOTE | 2019-12-10 08:58 | NUR ---
NURSE NOTES: Spoke to Dr Baca, relayed CO2 45, no new orders. Informed or refusal of dobutamine drip and signing picc line placement consent, said to notify cardio. RN already previously notified Dr Kimble, awaiting callback.
[2019-12-10] MEDS ORDERED: DOBUTamine Inj 500 MG in D5W 210 ML IV SCH ×2 (10:00→15:15)
[2019-12-10] MEDS: cefTRIAXone 1gm/D5W 55ml IVPB SCH ×2 (11:54)
[2019-12-10 12:00] VITALS: BP 120/76
--- NOTE | 2019-12-10 15:00 | NUR ---
NURSE NOTES: OK to use peripheral line per pharmacist. Dr Lamin carpenter. Addendum: 12/10/19 at 1750 by Alice Teixeira RN NURSE NOTES: OK to use peripheral line for dobutamine drip of 3mcg/kg/min per pharmacist. Dr Lamin carpenter, also spoke to patient. Patient agreed to reconnecting dobutamine drip.
[2019-12-10] MEDS ORDERED: DOBUTamine 250mg/250ml Premix 250 ML IV SCH (15:15)
--- NOTE | 2019-12-10 15:16 | Cardiac Electrophysiology PN ---
Assessment/Plan Assessment/Plan 1. Exacerbation of congestive heart failure in this patient with nonischemic cardiomyopathy, EF of 10% to 15%. Continue Lasix, lisinopril and Aldactone and Lasix 80 iv BID. Decrease Dobutamine to 3 and plan for ICD before discharge 2. Recurrent long runs of VT up to 24 beats. ICD before DC 3. History of atrial flutter. 4. Hypertension. Continue current heart failure therapy. 5. History of Graves disease. 6. Morbid obesity. ESDRAS RN Subjective Subjective EF 10%. In SR. Had another 24 beats of VT yesterday. Was on Dobutamine 4 Mcg/kg/ min robert was refusing PICC line placement Objective Last 24 Hour Vital Signs Date Time Temp Pulse Resp B/P (MAP) Pulse Ox O2 Delivery O2 Flow Rate FiO2 12/10/19 12:00 98 12/10/19 12:00 97.9 92 20 120/76 (91) 100 12/10/19 09:00 Nasal Cannula 4.0 Nasal Cannula 4.0 12/10/19 08:47 127/75 12/10/19 08:00 99 12/10/19 08:00 97.3 88 20 127/75 (92) 93 12/10/19 07:00 88 18 93 Nasal Cannula 4.0 36 12/10/19 04:00 98.4 94 20 129/78 (95) 99 12/10/19 04:00 99 12/10/19 00:00 98.2 106 19 135/81 (99) 100 12/10/19 00:00 95 12/09/19 21:00 Nasal Cannula 4.0 Nasal Cannula 4.0 12/09/19 20:00 97.9 100 22 124/83 (97) 99 12/09/19 20:00 107 12/09/19 16:00 98 12/09/19 16:00 98.1 93 20 108/79 (89) 96 12/09/19 15:56 97.7 Intake and Output 12/09/19 12/10/19 19:00 07:00 Intake Total 1523.924 ml 1123.36 ml Output Total 2400 ml 2900 ml Balance -876.076 ml -1776.64 ml Intake Oral 1320 ml 1000 ml IV Total 203.924 ml 123.36 ml Output Urine Total 2400 ml 2900 ml # Voids 6 Laboratory Tests Test 12/10/19 06:20 Sodium Level 138 MMOL/L (136-145) Potassium Level 4.2 MMOL/L (3.5-5.1) Chloride Level 94 MMOL/L (98-107) L Carbon Dioxide Level 45 MMOL/L (21-32) *H Anion Gap 1 mmol/L (5-15) L Blood Urea Nitrogen 25 mg/dL (7-18) H Creatinine 1.4 MG/DL (0.55-1.30) H Estimat Glomerular Filtration Rate > 60 mL/min (>60) Glucose Level 141 MG/DL (74-106) H Calcium Level 9.2 MG/DL (8.5-10.1) Magnesium Level 1.8 MG/DL (1.8-2.4) Objective HEAD AND NECK: Positive JVD. LUNGS: Decreased breath sounds. CARDIOVASCULAR: Regular S1 and S2 with no gallop. ABDOMEN: Soft. EXTREMITIES: A 2+ pitting edema. He also has scrotal edema. Spenser Kimble MD Dec 10, 2019 15:16
[2019-12-10 16:00] VITALS: BP 113/69
--- NOTE | 2019-12-10 16:41 | Pulmonology Progress Note ---
Subjective Interval Events: None new Constitutional: Reports: no symptoms HEENT: Repors: no symptoms Respiratory: Reports: no symptoms Cardiovascular: Reports: no symptoms Gastrointestinal/Abdominal: Reports: no symptoms Genitourinary: Reports: no symptoms Allergies: Coded Allergies: SIMVASTATIN (Verified Allergy, Unknown, 07/03/19) Uncoded Allergies: STATINS (Allergy, Unknown, 08/13/19) Objective Last 24 Hour Vital Signs Date Time Temp Pulse Resp B/P (MAP) Pulse Ox O2 Delivery O2 Flow Rate FiO2 12/10/19 12:00 98 12/10/19 12:00 97.9 92 20 120/76 (91) 100 12/10/19 09:00 Nasal Cannula 4.0 Nasal Cannula 4.0 12/10/19 08:47 127/75 12/10/19 08:00 99 12/10/19 08:00 97.3 88 20 127/75 (92) 93 12/10/19 07:00 88 18 93 Nasal Cannula 4.0 36 12/10/19 04:00 98.4 94 20 129/78 (95) 99 12/10/19 04:00 99 12/10/19 00:00 98.2 106 19 135/81 (99) 100 12/10/19 00:00 95 12/09/19 21:00 Nasal Cannula 4.0 Nasal Cannula 4.0 12/09/19 20:00 97.9 100 22 124/83 (97) 99 12/09/19 20:00 107 Intake and Output 12/09/19 12/10/19 19:00 07:00 Intake Total 1523.924 ml 1123.36 ml Output Total 2400 ml 2900 ml Balance -876.076 ml -1776.64 ml Intake Oral 1320 ml 1000 ml IV Total 203.924 ml 123.36 ml Output Urine Total 2400 ml 2900 ml # Voids 6 General Appearance: no acute distress HEENT: normocephalic Respiratory: chest wall non-tender, lungs clear Abdomen: normal bowel sounds Extremities: no cyanosis Laboratory Tests 12/10/19 06:20: Sodium Level 138, Potassium Level 4.2, Chloride Level 94L, Carbon Dioxide Level 45*H, Anion Gap 1L, Blood Urea Nitrogen 25H, Creatinine 1.4H, Estimat Glomerular Filtration Rate > 60, Glucose Level 141H, Calcium Level 9.2, Magnesium Level 1.8 Current Medications Medications (Trade) Dose Ordered Sig/Marybeth Route PRN Reason Start Time Stop Time Status Last Admin Dose Admin Acetaminophen (Tylenol) 650 mg Q6H PRN ORAL For Headache and fever >100.2 12/04/19 16:30 01/03/20 16:29 12/05/19 20:24 Albuterol Sulfate (Proventil) 2.5 mg Q6HRT PRN HHN Shortness of Breath 12/05/19 22:15 12/10/19 22:14 Allopurinol (Zyloprim) 200 mg DAILY ORAL 12/04/19 09:00 01/03/20 08:59 12/10/19 08:47 Aspirin (ASA) 81 mg DAILY ORAL 12/04/19 09:00 01/18/20 08:59 12/10/19 08:47 Ceftriaxone Sodium 1 gm/ Dextrose 55 ml @ 110 mls/hr Q24H IVPB 12/07/19 11:15 12/12/19 11:14 12/10/19 11:54 Chlorhexidine Gluconate (Nel-Hex 2%) 1 applic DAILY@2000 TOPIC 12/09/19 20:00 03/08/20 19:59 Dobutamine HCl 500 mg/Dextrose 250 ml @ 7.71 mls/hr Q24H IV 12/10/19 15:15 01/09/20 15:14 12/10/19 15:48 Furosemide (Lasix) 80 mg Q12HR IV 12/07/19 21:00 01/05/20 17:59 12/10/19 08:48 Heparin Sodium/ Sodium Chloride (Heparin 1000 units/500ml Premix) 1,000 unit ONCE PRN IV PICC 12/09/19 17:15 12/10/19 23:59 Lidocaine HCl (Xylocaine 1% 30ml) 30 ml ONCE PRN INJ PICC 12/09/19 17:17 12/10/19 23:59 Lisinopril (ZestriL) 5 mg DAILY ORAL 12/04/19 09:00 01/03/20 08:59 12/10/19 08:47 Methylprednisolone Sodium Succinate (Solu-MEDROL) 20 mg DAILY IVP 12/11/19 09:00 03/10/20 08:59 Morphine Sulfate (Morphine Sulfate) 1 mg Q6H PRN IVP Moderate Pain (Pain Scale 4-6) 12/06/19 04:30 12/12/19 15:44 12/10/19 15:50 Nitroglycerin (Ntg) 1 patch Q24H PRN TDERMAL CHEST PAIN 12/03/19 15:00 01/02/20 14:59 Ondansetron HCl (Zofran) 4 mg Q6H PRN IVP Nausea & Vomiting 12/03/19 14:00 01/02/20 13:59 Spironolactone (Aldactone) 25 mg DAILY ORAL 12/05/19 09:00 01/04/20 08:59 12/10/19 08:47 Assessment/Plan Assessment/Plan IMPRESSION: 1. Decompensated congestive heart failure/systolic heart failure. 2. Cardiomyopathy. 3. Hypertension. DISCUSSION: Patient has a small right effusion which has decreased. He has a right lung consolidation. I doubt pneumonia given lack of fever or leukocytosis. I will follow carefully. I will follow as comprehensive ophthalmologist. May need AICD He is declining Dobutamine Now down to 4L/min O2 Hong Gross Omar Syed MD Dec 10, 2019 16:41
--- NOTE | 2019-12-10 18:00 | Progress Note ---
DATE: 12/10/2019 SUBJECTIVE: This is an elderly male, currently sitting in bed, still short of breath, but is improving. Now he is taking treatment with drip. Discussed with Dr. Kimble. PHYSICAL EXAMINATION: VITAL SIGNS: Blood pressure 120/76, pulse 92, respirations 20, temperature 97.9. HEENT: NAD. CHEST: Bilateral decreased breath sounds. CARDIOVASCULAR: Regular rhythm. No gallop. No murmur. ABDOMEN: Soft. EXTREMITIES: No edema GENITOURINARY: Deferred. LABORATORY DATA: BUN 25, creatinine 1.4. Sodium 138. ASSESSMENT: 1. Severe cardiomyopathy. 2. CHF. 3. Acute COPD exacerbation. 4. Hypertension. 5. Chronic back pain. PLAN: We will cut back on his steroids. Continue dopamine drip. Continue . Continue Lasix and antibiotics. Discussed with the patient and Dr. Kimble. Dav Cardoza M.D. DR: Hao JOB#: [id number] CC:
--- NOTE | 2019-12-10 18:02 | General Progress Note ---
Assessment/Plan Assessment/Plan: (1) CHF (2) Chest pain (3) Peripheral neuropathy Patient will be continued on morphine as needed. D/w Dr. Renteria and he concurred. Subjective Date patient seen: Dec 10, 2019 Time patient seen: 05:15 - pm Allergies: Coded Allergies: SIMVASTATIN (Verified Allergy, Unknown, 07/03/19) Uncoded Allergies: STATINS (Allergy, Unknown, 08/13/19) Subjective Constitutional: Reports: no symptoms HEENT: Reports: no symptoms Cardiovascular: Reports: no symptoms Respiratory: Reports: no symptoms Gastrointestinal/Abdominal: Reports: no symptoms Genitourinary: Reports: no symptoms Neurologic/Psychiatric: Reports: no symptoms Endocrine: Reports: no symptoms Hematologic/Lymphatic: Reports: no symptoms Subjective: Patient sitting in bed showing no signs of pain or distress. Pain has been tolerated on the Morphine No new complaints at this time. Objective Last 24 Hour Vital Signs Date Time Temp Pulse Resp B/P (MAP) Pulse Ox O2 Delivery O2 Flow Rate FiO2 12/10/19 16:00 99 12/10/19 16:00 97.9 102 20 113/69 (84) 100 12/10/19 12:00 98 12/10/19 12:00 97.9 92 20 120/76 (91) 100 12/10/19 09:00 Nasal Cannula 4.0 Nasal Cannula 4.0 12/10/19 08:47 127/75 12/10/19 08:00 99 12/10/19 08:00 97.3 88 20 127/75 (92) 93 12/10/19 07:00 88 18 93 Nasal Cannula 4.0 36 12/10/19 04:00 98.4 94 20 129/78 (95) 99 12/10/19 04:00 99 12/10/19 00:00 98.2 106 19 135/81 (99) 100 12/10/19 00:00 95 12/09/19 21:00 Nasal Cannula 4.0 Nasal Cannula 4.0 12/09/19 20:00 97.9 100 22 124/83 (97) 99 12/09/19 20:00 107 Intake and Output 12/09/19 12/10/19 19:00 07:00 Intake Total 1523.924 ml 1123.36 ml Output Total 2400 ml 2900 ml Balance -876.076 ml -1776.64 ml Intake Oral 1320 ml 1000 ml IV Total 203.924 ml 123.36 ml Output Urine Total 2400 ml 2900 ml # Voids 6 Laboratory Tests 12/10/19 06:20: Sodium Level 138, Potassium Level 4.2, Chloride Level 94L, Carbon Dioxide Level 45*H, Anion Gap 1L, Blood Urea Nitrogen 25H, Creatinine 1.4H, Estimat Glomerular Filtration Rate > 60, Glucose Level 141H, Calcium Level 9.2, Magnesium Level 1.8 Height (Feet): 5 Height (Inches): 3.00 Weight (Pounds): 189 Objective General Appearance: no apparent distress, alert EENT: PERRL/EOMI, normal ENT inspection Neck: non-tender, normal alignment Cardiovascular: normal rate, regular rhythm Respiratory/Chest: decreased breath sounds Abdomen: non tender, soft Extremities: non-tender Edema: trace edema Neurologic: alert, oriented x 3 Tremayne Fenton Dec 10, 2019 18:02
--- NOTE | 2019-12-10 19:38 | NUR ---
HAND-OFF: Report given to Joy RINALDI.
[2019-12-10 20:00] VITALS: BP 109/58
[2019-12-11] VITALS: BP 117/70
[2019-12-11] MEDS ORDERED: DOBUTamine Inj 500 MG in D5W 210 ML IV SCH ×2 (01:15→11:30)
[2019-12-11 04:00] VITALS: BP 110/75
--- NOTE | 2019-12-11 07:06 | NUR ---
NURSE NOTES: Received patient in bed asleep. O2 via NC in place, no SOB or acute distress. IV line out, patient verbalized to the night RN that he removed his IV. Still for reinsertion. HOB elevated. Bed locked in lowest position. Call light within reach. Will continue plan of care.
--- NOTE | 2019-12-11 07:28 | NUR ---
NURSE NOTES: Notified Dr Kimble that patient removed his IV and refused reinsertion last night, will attempt to reinsert. Awaiting callback.
--- NOTE | 2019-12-11 07:31 | NUR ---
HAND-OFF: Report given to Alice Gandhi RN. Pt in stable condition, denies pain. Plan of care endorsed.
[2019-12-11 08:00] VITALS: BP 105/82
[2019-12-11] MEDS: Solu-MEDROL 40mg Inj IVP SCH (08:33)
[2019-12-11] MEDS: Lisinopril 2.5mg tab ORAL SCH (08:41)
[2019-12-11] MEDS: Aspirin Baby 81mg ORAL SCH (08:41)
[2019-12-11] MEDS: Allopurinol 100mg Tab ORAL SCH (08:41)
[2019-12-11] MEDS: Spironolactone 25mg tab ORAL SCH (08:41)
--- NOTE | 2019-12-11 08:44 | NUR ---
NURSE NOTES: Notified Dr Cardoza that patient has no IV access and RN requesting oral route for IV meds. Awaiting response. Addendum: 12/11/19 at 1013 by Alice Teixeira RN Dr Cardoza said patient can be discharged if ok with Dr Kimble. Instructed RN to wait for Dr Kimble's instruction whether to put back IV or not. If IV line is needed and reinserted, and the patient pulls it out again, Dr Cardoza said patient may go on AMA. Dr Kimble called again and left message, awaiting callback.
--- NOTE | 2019-12-11 08:55 | General Progress Note ---
Assessment/Plan Assessment/Plan: (1) CHF (2) Chest pain (3) Peripheral neuropathy Patient will be discontinued off morphine We will start [place] 5/325mg PO 1 tab Q4H PRN severe pain D/w Dr. Renteria and he concurred. Subjective Date patient seen: Dec 11, 2019 Time patient seen: 08:30 - am Allergies: Coded Allergies: SIMVASTATIN (Verified Allergy, Unknown, 07/03/19) Uncoded Allergies: STATINS (Allergy, Unknown, 08/13/19) Subjective Constitutional: Reports: no symptoms HEENT: Reports: no symptoms Cardiovascular: Reports: no symptoms Respiratory: Reports: no symptoms Gastrointestinal/Abdominal: Reports: no symptoms Genitourinary: Reports: no symptoms Neurologic/Psychiatric: Reports: no symptoms Endocrine: Reports: no symptoms Hematologic/Lymphatic: Reports: no symptoms Subjective: Patient reports pain has been unchanged and tolerated on the Morphine. However patient has lost his IV access and we will change to oral pain medication. Objective Last 24 Hour Vital Signs Date Time Temp Pulse Resp B/P (MAP) Pulse Ox O2 Delivery O2 Flow Rate FiO2 12/11/19 08:41 105/82 12/11/19 08:00 99.1 88 20 105/82 (90) 92 12/11/19 04:00 110 12/11/19 04:00 98.1 82 20 110/75 (87) 99 12/11/19 00:00 101 12/11/19 00:00 98.3 84 18 117/70 (86) 99 12/10/19 21:00 Nasal Cannula 4.0 Nasal Cannula 4.0 12/10/19 20:00 106 12/10/19 20:00 98.1 106 20 109/58 (75) 98 12/10/19 16:00 99 12/10/19 16:00 97.9 102 20 113/69 (84) 100 12/10/19 12:00 98 12/10/19 12:00 97.9 92 20 120/76 (91) 100 12/10/19 09:00 Nasal Cannula 4.0 Nasal Cannula 4.0 Intake and Output 12/10/19 12/11/19 19:00 07:00 Intake Total 480 ml 780 ml Output Total 800 ml 2600 ml Balance -320 ml -1820 ml Intake Oral 480 ml 780 ml Output Urine Total 2600 ml Stool Total 800 ml # Voids 6 Height (Feet): 5 Height (Inches): 3.00 Weight (Pounds): 189 Objective General Appearance: no apparent distress, alert EENT: PERRL/EOMI, normal ENT inspection Neck: non-tender, normal alignment Cardiovascular: normal rate, regular rhythm Respiratory/Chest: decreased breath sounds Abdomen: non tender, soft Extremities: non-tender Edema: trace edema Neurologic: alert, oriented x 3 Tremayne Fenton Dec 11, 2019 08:54
[2019-12-11] MEDS ORDERED: HYDROcodone/Acetamin 5/325 tab ORAL PRN (09:00)
--- NOTE | 2019-12-11 09:54 | Pulmonology Progress Note ---
Subjective Interval Events: None new Constitutional: Reports: no symptoms HEENT: Repors: no symptoms Respiratory: Reports: no symptoms Cardiovascular: Reports: no symptoms Gastrointestinal/Abdominal: Reports: no symptoms Genitourinary: Reports: no symptoms Allergies: Coded Allergies: SIMVASTATIN (Verified Allergy, Unknown, 07/03/19) Uncoded Allergies: STATINS (Allergy, Unknown, 08/13/19) Objective Last 24 Hour Vital Signs Date Time Temp Pulse Resp B/P (MAP) Pulse Ox O2 Delivery O2 Flow Rate FiO2 12/11/19 09:00 Nasal Cannula 4.0 Nasal Cannula 4.0 12/11/19 08:41 105/82 12/11/19 08:00 89 12/11/19 08:00 99.1 88 20 105/82 (90) 92 12/11/19 04:00 110 12/11/19 04:00 98.1 82 20 110/75 (87) 99 12/11/19 00:00 101 12/11/19 00:00 98.3 84 18 117/70 (86) 99 12/10/19 21:00 Nasal Cannula 4.0 Nasal Cannula 4.0 12/10/19 20:00 106 12/10/19 20:00 98.1 106 20 109/58 (75) 98 12/10/19 16:00 99 12/10/19 16:00 97.9 102 20 113/69 (84) 100 12/10/19 12:00 98 12/10/19 12:00 97.9 92 20 120/76 (91) 100 Intake and Output 12/10/19 12/11/19 19:00 07:00 Intake Total 480 ml 780 ml Output Total 800 ml 2600 ml Balance -320 ml -1820 ml Intake Oral 480 ml 780 ml Output Urine Total 2600 ml Stool Total 800 ml # Voids 6 General Appearance: no acute distress HEENT: normocephalic Respiratory: chest wall non-tender, lungs clear Abdomen: normal bowel sounds Extremities: no cyanosis Current Medications Medications (Trade) Dose Ordered Sig/Marybeth Route PRN Reason Start Time Stop Time Status Last Admin Dose Admin Acetaminophen (Tylenol) 650 mg Q6H PRN ORAL For Headache and fever >100.2 12/04/19 16:30 01/03/20 16:29 12/05/19 20:24 Acetaminophen/ Hydrocodone Bitart ([place] 5/325) 1 tab Q4H PRN ORAL Severe Pain (Pain Scale 7-10) 12/11/19 09:00 12/18/19 08:59 Allopurinol (Zyloprim) 200 mg DAILY ORAL 12/04/19 09:00 01/03/20 08:59 12/11/19 08:41 Aspirin (ASA) 81 mg DAILY ORAL 12/04/19 09:00 01/18/20 08:59 12/11/19 08:41 Ceftriaxone Sodium 1 gm/ Dextrose 55 ml @ 110 mls/hr Q24H IVPB 12/07/19 11:15 12/12/19 11:14 12/10/19 11:54 Dobutamine HCl 500 mg/Dextrose 250 ml @ 7.71 mls/hr Q24H IV 12/11/19 01:15 01/10/20 01:14 Furosemide (Lasix) 80 mg Q12HR IV 12/07/19 21:00 01/05/20 17:59 12/10/19 22:42 Lisinopril (ZestriL) 5 mg DAILY ORAL 12/04/19 09:00 01/03/20 08:59 12/11/19 08:41 Methylprednisolone Sodium Succinate (Solu-MEDROL) 20 mg DAILY IVP 12/11/19 09:00 03/10/20 08:59 Nitroglycerin (Ntg) 1 patch Q24H PRN TDERMAL CHEST PAIN 12/03/19 15:00 01/02/20 14:59 Ondansetron HCl (Zofran) 4 mg Q6H PRN IVP Nausea & Vomiting 12/03/19 14:00 01/02/20 13:59 Spironolactone (Aldactone) 25 mg DAILY ORAL 12/05/19 09:00 01/04/20 08:59 12/11/19 08:41 Assessment/Plan Assessment/Plan IMPRESSION: 1. Decompensated congestive heart failure/systolic heart failure. 2. Cardiomyopathy. 3. Hypertension. DISCUSSION: Patient has a small right effusion which has decreased. I will follow carefully. 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 May need AICD He is declining Dobutamine through PICC Now down to 4L/min O2 Hong Gross Omar Syed MD Dec 11, 2019 09:54
--- NOTE | 2019-12-11 10:42 | NUR ---
RD ASSESSMENT & RECOMMENDATIONS SEE CARE ACTIVITY FOR COMPLETE ASSESSMENT DAILY ESTIMATED NEEDS: Needs based on Pulmonary, cardiac 70.kg abw 25-30 kcals/kg 1049-2249 total kcals 1-1.5 g protein/kg 70-105 g total protein Fluid per MD, on lasix NUTRITION DIAGNOSIS: Decrease sodium and fat needs r/t CHF dx as evidenced by pt w/ CHF, elev BNP (2771-> 8424), currently off Lasix, BMI >30 obese per guidelines. CURRENT DIET: Cardiac PO DIET RECOMMENDATIONS: Maintain Cardiac diet ADDITIONAL RECOMMENDATIONS: 1) Daily standing wt: monitor trend Pt on lasix, CHF, req daily wts 2) Check lytes daily on lasix, replete as needed 3) Updated HgA1C; monitor BG/ need for niss 4) B-complex 1 tab daily on lasix
[2019-12-11] MEDS: cefTRIAXone 1gm/D5W 55ml IVPB SCH ×2 (11:15)
--- NOTE | 2019-12-11 11:19 | Cardiac Electrophysiology PN ---
Assessment/Plan Assessment/Plan 1. Exacerbation of CHF in this patient with nonischemic cardiomyopathy, EF of 10 % to 15%. Feeling better on Dobutamine drip, lisinopril, Aldactone and Lasix 80 iv BID. Decrease Dobutamine to 2 and plan for ICD before discharge 2. 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 ICD before DC 3. History of atrial flutter. 4. Hypertension. Continue current heart failure therapy. 5. History of Graves disease. 6. Morbid obesity. 7. Renal failure, Cr 1.4 on dobutamine DW RN, DR Cardoza and Phuong Subjective Subjective Has recurrent VTs including 24 beats of VT 12/09/19. Was on Dobutamine 3 Mcg/kg/ min. IV is out now awaiting new iv placement for dobutamine and iv LAsix. Still refusing PICC line placement Objective Last 24 Hour Vital Signs Date Time Temp Pulse Resp B/P (MAP) Pulse Ox O2 Delivery O2 Flow Rate FiO2 12/11/19 09:00 Nasal Cannula 4.0 Nasal Cannula 4.0 12/11/19 08:41 105/82 12/11/19 08:00 89 12/11/19 08:00 99.1 88 20 105/82 (90) 92 12/11/19 04:00 110 12/11/19 04:00 98.1 82 20 110/75 (87) 99 12/11/19 00:00 101 12/11/19 00:00 98.3 84 18 117/70 (86) 99 12/10/19 21:00 Nasal Cannula 4.0 Nasal Cannula 4.0 12/10/19 20:00 106 12/10/19 20:00 98.1 106 20 109/58 (75) 98 12/10/19 16:00 99 12/10/19 16:00 97.9 102 20 113/69 (84) 100 12/10/19 12:00 98 12/10/19 12:00 97.9 92 20 120/76 (91) 100 Intake and Output 12/10/19 12/11/19 19:00 07:00 Intake Total 480 ml 780 ml Output Total 800 ml 2600 ml Balance -320 ml -1820 ml Intake Oral 480 ml 780 ml Output Urine Total 2600 ml Stool Total 800 ml # Voids 6 Objective HEAD AND NECK: Positive JVD. LUNGS: Decreased breath sounds. CARDIOVASCULAR: Regular S1 and S2 with no gallop. ABDOMEN: Soft. EXTREMITIES: A 2+ pitting edema. He also has scrotal edema. Spenser Kimble MD Dec 11, 2019 11:19
[2019-12-11 11:23] VITALS: BP 81/57
--- NOTE | 2019-12-11 11:30 | NUR ---
NURSE NOTES: One failed attempt to reinsert. Patient refuses second try for now. Will attempt again later. Addendum: 12/11/19 at 1132 by Alice Teixeira RN NURSE NOTES: One failed attempt to reinsert IV line. Patient refuses second try for now. Will attempt again later.
--- NOTE | 2019-12-11 14:00 | Progress Note ---
DATE: 12/11/2019 SUBJECTIVE: This is a 54-year-old male came with short of breath, hypoxia, acute CHF decompensated with cardiomyopathy, COPD, and hypertension. The patient has been poor compliance, has been some time refusing treatment and pulled out IV line. This is third time. The patient claims that he pulled not purposely, it came out by itself. The patient's short of breath is improving. 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 OBJECTIVE: VITAL SIGNS: His blood pressure is 105/82, pulse 89, respirations 20, temperature 99.1. HEENT: No JVD. CHEST: Bilateral decreased breath sounds. CARDIOVASCULAR: Regular rhythm. No gallop. No murmur. ABDOMEN: Soft. Positive bowel sounds. EXTREMITIES: No edema. GENITOURINARY: Deferred. LABORATORY DATA: The patient has no labs today. ASSESSMENT: 1. CHF, decompensated. 2. Acute COPD is improving. 3. Hypertension. 4. Poor compliance. 5. Chronic back pain. PLAN: We will discontinue morphine and discontinue Solu-Medrol. Continue dobutamine, put another IV line. Waiting for Dr. Kimble to give the plan whether he need to continue dobutamine or he can be discharged home on his own care. We will continue Lasix. Dav Cardoza M.D. DR: GISELE JOB#: [id number] CC:
[2019-12-11 16:00] VITALS: BP 103/69
--- NOTE | 2019-12-11 19:41 | NUR ---
HAND-OFF: Report given to Tomas RINALDI. Patient still refusing IV insertion, Dr Kimble aware.
--- NOTE | 2019-12-11 19:58 | NUR ---
NURSE NOTES: Received report from GENTRY Jenkins. Patient is on bed, awake alert and oriented x 3. On cardiac diet, instructed and amenable. On nasal cannula @ 4Lpm with no desaturation reported. shoeblack is in place, shows sinus rhythm with episodes of V-tach and no chest pain at this time. IV site is on right hand g-22 running fluid of D5 NS @ 125 cc/hour that is asymptomatic, patent and intact. Safety measures are in placed, bed in lowest and locked position, side rails up x 2, call light button and bedside table within reach, instructed to call for any assistance needed. Will continue plan of care.
[2019-12-11 20:00] VITALS: BP_SYST 109; BP_SYST 120; BP_DIAS 69; BP_DIAS 81
[2019-12-12] VITALS: BP 100/66
[2019-12-12 04:00] VITALS: BP 105/69
--- NOTE | 2019-12-12 07:32 | NUR ---
HAND-OFF: Report given to GENTRY Jenkins. Patient is on bed, awake and oriented. No complaints made at this time, plan of care endorsed.
--- NOTE | 2019-12-12 07:59 | NUR ---
NURSE NOTES: Received patient in bed asleep. O2 via NC in place, no SOB or acute distress. No IV access, still for reinsertion but patient refusing as per night RN. HOB elevated. Bed locked in lowest position. Call light within reach. Will continue plan of care.
[2019-12-12 08:00] VITALS: BP 96/64
[2019-12-12] MEDS: Lisinopril 2.5mg tab ORAL SCH (09:00)
[2019-12-12] MEDS: Solu-MEDROL 40mg Inj IVP SCH (09:00)
[2019-12-12 09:04] LABS: BASOPHILS % (AUTO) 1.2 % (0.0-2.0); HEMATOCRIT 42.4 % (42.0-52.0); LYMPHOCYTES % (AUTO) 17.2 % (20.0-45.0); MEAN CORPUSCULAR VOLUME 101 FL (80-99); MONOCYTES % (AUTO) 11.3 % (1.0-10.0); NEUTROPHILS % (AUTO) 67.3 % (45.0-75.0); PLATELET COUNT 111 K/UL (150-450); RED BLOOD COUNT 4.19 M/UL (4.70-6.10); RED CELL DISTRIBUTION WIDTH 15.8 % (11.6-14.8); WHITE BLOOD COUNT 5.7 K/UL (4.8-10.8)
[2019-12-12] MEDS: Spironolactone 25mg tab ORAL SCH (09:16)
[2019-12-12] MEDS: Allopurinol 100mg Tab ORAL SCH (09:16)
[2019-12-12] MEDS: Aspirin Baby 81mg ORAL SCH (09:16)
[2019-12-12 09:31] LABS: ANION GAP 3 mmol/L (5-15); BLOOD UREA NITROGEN 34 mg/dL (7-18); CALCIUM 8.7 MG/DL (8.5-10.1); CHLORIDE 94 MMOL/L (98-107); CREATININE 1.5 MG/DL (0.55-1.30); POTASSIUM 3.4 MMOL/L (3.5-5.1); SODIUM 140 MMOL/L (136-145)
[2019-12-12 09:34] LABS: CARBON DIOXIDE 44 MMOL/L (21-32)
--- NOTE | 2019-12-12 09:44 | General Progress Note ---
Assessment/Plan Assessment/Plan: (1) CHF (2) Chest pain (3) Peripheral neuropathy Patient will be continued on [place] D/w Dr. Renteria and he concurred. Subjective Date patient seen: Dec 12, 2019 Time patient seen: 09:30 - am Allergies: Coded Allergies: SIMVASTATIN (Verified Allergy, Unknown, 07/03/19) Uncoded Allergies: STATINS (Allergy, Unknown, 08/13/19) Subjective Constitutional: Reports: no symptoms HEENT: Reports: no symptoms Cardiovascular: Reports: no symptoms Respiratory: Reports: no symptoms Gastrointestinal/Abdominal: Reports: no symptoms Genitourinary: Reports: no symptoms Neurologic/Psychiatric: Reports: no symptoms Endocrine: Reports: no symptoms Hematologic/Lymphatic: Reports: no symptoms Subjective: Patient is tolerating the pain on the norco as needed. No new complaints at this time. Objective Last 24 Hour Vital Signs Date Time Temp Pulse Resp B/P (MAP) Pulse Ox O2 Delivery O2 Flow Rate FiO2 12/12/19 09:00 96/64 12/12/19 08:00 98.2 70 20 96/64 (75) 100 12/12/19 04:00 98.4 101 18 105/69 (81) 96 12/12/19 04:00 103 12/12/19 00:00 103 12/12/19 00:00 99 12/12/19 00:00 98.5 62 20 100/66 (77) 96 12/11/19 21:00 Nasal Cannula 4.0 Nasal Cannula 4.0 12/11/19 20:03 80 18 95 Nasal Cannula 4.0 36 12/11/19 20:00 111 12/11/19 20:00 98.4 101 20 109/81 (90) 96 12/11/19 16:00 97.7 75 20 103/69 (80) 95 12/11/19 16:00 103 12/11/19 12:00 100 12/11/19 11:23 99.9 65 20 81/57 (65) 95 Intake and Output 12/11/19 12/12/19 19:00 07:00 Intake Total 830 ml 360 ml Output Total 600 ml 950 ml Balance 230 ml -590 ml Intake Oral 830 ml 360 ml Output Urine Total 600 ml 950 ml # Voids 4 Laboratory Tests 12/12/19 08:40: White Blood Count 5.7, Red Blood Count 4.19L, Hemoglobin 13.0L, Hematocrit 42.4 , Mean Corpuscular Volume 101H, Mean Corpuscular Hemoglobin 31.1H, Mean Corpuscular Hemoglobin Concent 30.7L, Red Cell Distribution Width 15.8H, Platelet Count 111L, Mean Platelet Volume 7.7, Neutrophils (%) (Auto) 67.3, Lymphocytes (%) (Auto) 17.2L, Monocytes (%) (Auto) 11.3H, Eosinophils (%) (Auto ) 3.0, Basophils (%) (Auto) 1.2, Sodium Level 140, Potassium Level 3.4L, Chloride Level 94L, Carbon Dioxide Level 44*H, Anion Gap 3L, Blood Urea Nitrogen 34H, Creatinine 1.5H, Estimat Glomerular Filtration Rate 59.4, Glucose Level 233H, Calcium Level 8.7 Height (Feet): 5 Height (Inches): 3.00 Weight (Pounds): 193 Objective General Appearance: no apparent distress, alert EENT: PERRL/EOMI, normal ENT inspection Neck: non-tender, normal alignment Cardiovascular: normal rate, regular rhythm Respiratory/Chest: decreased breath sounds Abdomen: non tender, soft Extremities: non-tender Edema: trace edema Neurologic: alert, oriented x 3 Tremayne Fenton Dec 12, 2019 09:44
--- NOTE | 2019-12-12 10:07 | NUR ---
NURSE NOTES: Dr shepard notified of CO2 44, awaiting response.
--- NOTE | 2019-12-12 11:24 | Cardiac Electrophysiology PN ---
Assessment/Plan Assessment/Plan 1. Exacerbation of CHF in this patient with nonischemic cardiomyopathy, EF of 10 % to 15%. On lisinopril, Aldactone and change Lasix to 80 po tid DC Dobutamine Resume Coreg. Schedule for ICD on Tuesday 2. 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 ICD on Tuesday 3. History of atrial flutter. 4. Hypertension. Continue current heart failure therapy. 5. History of Graves disease. 6. Morbid obesity. 7. Renal failure, Cr 1.4 on dobutamine DW RN, DR Cardoza and [place] Subjective Subjective Has recurrent VTs last night again, including 24 beats of VT 12/09/19. Off Dobutamine and iv Lasix as IV is out Objective Last 24 Hour Vital Signs Date Time Temp Pulse Resp B/P (MAP) Pulse Ox O2 Delivery O2 Flow Rate FiO2 12/12/19 09:00 96/64 12/12/19 08:00 98.2 70 20 96/64 (75) 100 12/12/19 04:00 98.4 101 18 105/69 (81) 96 12/12/19 04:00 103 12/12/19 00:00 103 12/12/19 00:00 99 12/12/19 00:00 98.5 62 20 100/66 (77) 96 12/11/19 21:00 Nasal Cannula 4.0 Nasal Cannula 4.0 12/11/19 20:03 80 18 95 Nasal Cannula 4.0 36 12/11/19 20:00 111 12/11/19 20:00 98.4 101 20 109/81 (90) 96 12/11/19 16:00 97.7 75 20 103/69 (80) 95 12/11/19 16:00 103 12/11/19 12:00 100 12/11/19 11:23 99.9 65 20 81/57 (65) 95 Intake and Output 12/11/19 12/12/19 19:00 07:00 Intake Total 830 ml 360 ml Output Total 600 ml 950 ml Balance 230 ml -590 ml Intake Oral 830 ml 360 ml Output Urine Total 600 ml 950 ml # Voids 4 Laboratory Tests Test 12/12/19 08:40 White Blood Count 5.7 K/UL (4.8-10.8) Red Blood Count 4.19 M/UL (4.70-6.10) L Hemoglobin 13.0 G/DL (14.2-18.0) L Hematocrit 42.4 % (42.0-52.0) Mean Corpuscular Volume 101 FL (80-99) H Mean Corpuscular Hemoglobin 31.1 PG (27.0-31.0) H Mean Corpuscular Hemoglobin Concent 30.7 G/DL (32.0-36.0) L Red Cell Distribution Width 15.8 % (11.6-14.8) H Platelet Count 111 K/UL (150-450) L Mean Platelet Volume 7.7 FL (6.5-10.1) Neutrophils (%) (Auto) 67.3 % (45.0-75.0) Lymphocytes (%) (Auto) 17.2 % (20.0-45.0) L Monocytes (%) (Auto) 11.3 % (1.0-10.0) H Eosinophils (%) (Auto) 3.0 % (0.0-3.0) Basophils (%) (Auto) 1.2 % (0.0-2.0) Sodium Level 140 MMOL/L (136-145) Potassium Level 3.4 MMOL/L (3.5-5.1) L Chloride Level 94 MMOL/L (98-107) L Carbon Dioxide Level 44 MMOL/L (21-32) *H Anion Gap 3 mmol/L (5-15) L Blood Urea Nitrogen 34 mg/dL (7-18) H Creatinine 1.5 MG/DL (0.55-1.30) H Estimat Glomerular Filtration Rate 59.4 mL/min (>60) Glucose Level 233 MG/DL (74-106) H Calcium Level 8.7 MG/DL (8.5-10.1) Objective HEAD AND NECK: Positive JVD. LUNGS: Decreased breath sounds. CARDIOVASCULAR: Regular S1 and S2 with no gallop. ABDOMEN: Soft. EXTREMITIES: 2+ pitting edema. He also has scrotal edema. Spenser Kimble MD Dec 12, 2019 11:24
[2019-12-12 12:00] VITALS: BP 88/68
[2019-12-12] MEDS: Furosemide 80mg tab ORAL SCH ×2 (13:41→17:56)
--- NOTE | 2019-12-12 14:23 | NUR ---
NURSE NOTES: O2 via NC at 11LPM, patient refusing to titrate down, Dr Cardoza notified.
--- NOTE | 2019-12-12 15:35 | Anethesia Preoperative Eval ---
Anesthesia Pre-op PMH/ROS General Date of Evaluation: Dec 12, 2019 Time of Evaluation: 15:38 Anesthesiologist: rajani ASA Score: ASA 4 Mallampati Score Class I : Soft palate, uvula, fauces, pillars visible Class II: Soft palate, uvula, fauces visible Class III: Soft palate, base of uvula visible Class IV: Only hard plate visible Mallampati Classification: Class III Surgeon: Lamin Diagnosis: heart failure Surgical Procedure: ICD placement Anesthesia History: none Family History: no anesthesia problems Allergies: Coded Allergies: SIMVASTATIN (Verified Allergy, Unknown, 07/03/19) Uncoded Allergies: STATINS (Allergy, Unknown, 08/13/19) Medications: see eMAR Patient NPO?: Yes NPO Date: Dec 12, 2019 NPO Time: 00:01 Past Medical History Cardiovascular: Reports: HTN, CAD, arrhythmia - VF , other - EF - 10-15 % Cardiomyopathy; Pulmonary: Denies: asthma, COPD, BORIS, other Gastrointestinal/Genitourinary: Reports: CRI; Denies: GERD, ESRD, other Neurologic/Psychiatric: Denies: dementia, CVA, depression/anxiety, TIA, other Endocrine: Reports: other - Graves Disease; Denies: DM, hypothyroidism, steroids HEENT: Denies: cataract (L), cataract (R), glaucoma, [place] (L), [place] (R), other Hematology/Immune: Denies: anemia, DVT, bleeding disorder, other Musculoskeletal/Integumentary: Reports: edema; Denies: OA, RA, DJD, DDD, other Other: obesity PMH Narrative: Exacerbation of CHF in this patient with nonischemic cardiomyopathy, EF of 10% to 15%. On lisinopril, Aldactone and change Lasix to 80 po tid 2. 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 ICD on Tuesday 3. History of atrial flutter. 4. Hypertension. Continue current heart failure therapy. 5. History of Graves disease. 6. Morbid obesity. 7. Renal failure, Cr 1 8. Neuropathy Anesthesia Pre-op Phys. Exam Physician Exam Last Vital Signs Date Time Temp Pulse Resp B/P (MAP) Pulse Ox O2 Delivery O2 Flow Rate FiO2 12/12/19 14:21 Nasal Cannula 11.0 Nasal Cannula 4.0 12/12/19 12:00 98.1 46 20 88/68 (75) 99 12/12/19 08:30 36 Constitutional: other - heart failure Neurologic: CN 2-12 intact Cardiovascular: other Respiratory: CTA Gastrointestinal: S/NT/ND Airway Exam Mallampati Score: Class II Dentures: no upper, no lower Anesthesia Pre-op A/P Labs Hematology Test 12/12/19 08:40 White Blood Count 5.7 K/UL (4.8-10.8) Red Blood Count 4.19 M/UL (4.70-6.10) L Hemoglobin 13.0 G/DL (14.2-18.0) L Hematocrit 42.4 % (42.0-52.0) Mean Corpuscular Volume 101 FL (80-99) H Mean Corpuscular Hemoglobin 31.1 PG (27.0-31.0) H Mean Corpuscular Hemoglobin Concent 30.7 G/DL (32.0-36.0) L Red Cell Distribution Width 15.8 % (11.6-14.8) H Platelet Count 111 K/UL (150-450) L Mean Platelet Volume 7.7 FL (6.5-10.1) Neutrophils (%) (Auto) 67.3 % (45.0-75.0) Lymphocytes (%) (Auto) 17.2 % (20.0-45.0) L Monocytes (%) (Auto) 11.3 % (1.0-10.0) H Eosinophils (%) (Auto) 3.0 % (0.0-3.0) Basophils (%) (Auto) 1.2 % (0.0-2.0) Chemistry Test 12/12/19 08:40 Sodium Level 140 MMOL/L (136-145) Potassium Level 3.4 MMOL/L (3.5-5.1) L Chloride Level 94 MMOL/L (98-107) L Carbon Dioxide Level 44 MMOL/L (21-32) *H Anion Gap 3 mmol/L (5-15) L Blood Urea Nitrogen 34 mg/dL (7-18) H Creatinine 1.5 MG/DL (0.55-1.30) H Estimat Glomerular Filtration Rate 59.4 mL/min (>60) Glucose Level 233 MG/DL (74-106) H Calcium Level 8.7 MG/DL (8.5-10.1) Studies Pre-op Studies: EKG - VT; Arrthymias; , echo - 10-15% Risk Assessment & Plan Plan: [place] - Gabby Cano CRNA Dec 12, 2019 15:35
[2019-12-12 16:00] VITALS: BP 100/68
--- NOTE | 2019-12-12 16:24 | NUR ---
NURSE NOTES: Attempted to get consent for defibrillator implantation, but patient told RN to come back later. Will attempt securing consent again later as well as placing peripheral line.
--- NOTE | 2019-12-12 16:36 | NUR ---
NURSE NOTES: Attempted to secure consent for surgery, refused for now and said to wait. Attempted to collect covid swab, refused for now and said to wait. Attempted to insert peripheral line, refused for now and said to wait. Explained risks but still refused for now. Will attempt again later.
--- NOTE | 2019-12-12 18:00 | NUR ---
NURSE NOTES: Attempted to secure consent for defibrillator implantation, to insert IV line and to collect covid swab, patient refused. Explained risks but still refused.
--- NOTE | 2019-12-12 18:25 | Pulmonology Progress Note ---
Subjective Interval Events: None new Constitutional: Reports: no symptoms HEENT: Repors: no symptoms Respiratory: Reports: no symptoms Cardiovascular: Reports: no symptoms Gastrointestinal/Abdominal: Reports: no symptoms Genitourinary: Reports: no symptoms Allergies: Coded Allergies: SIMVASTATIN (Verified Allergy, Unknown, 07/03/19) Uncoded Allergies: STATINS (Allergy, Unknown, 08/13/19) Objective Last 24 Hour Vital Signs Date Time Temp Pulse Resp B/P (MAP) Pulse Ox O2 Delivery O2 Flow Rate FiO2 12/12/19 16:00 99.0 98 20 100/68 (79) 98 12/12/19 16:00 101 12/12/19 14:21 Nasal Cannula 11.0 Nasal Cannula 4.0 12/12/19 12:00 98.1 46 20 88/68 (75) 99 12/12/19 12:00 102 12/12/19 09:00 Nasal Cannula 4.0 Nasal Cannula 4.0 12/12/19 09:00 96/64 12/12/19 08:30 71 18 97 Nasal Cannula 4.0 36 12/12/19 08:00 98.2 70 20 96/64 (75) 100 12/12/19 08:00 99 12/12/19 04:00 98.4 101 18 105/69 (81) 96 12/12/19 04:00 103 12/12/19 00:00 103 12/12/19 00:00 99 12/12/19 00:00 98.5 62 20 100/66 (77) 96 12/11/19 21:00 Nasal Cannula 4.0 Nasal Cannula 4.0 12/11/19 20:03 80 18 95 Nasal Cannula 4.0 36 12/11/19 20:00 111 12/11/19 20:00 98.4 101 20 109/81 (90) 96 Intake and Output 12/11/19 12/12/19 19:00 07:00 Intake Total 830 ml 360 ml Output Total 600 ml 950 ml Balance 230 ml -590 ml Intake Oral 830 ml 360 ml Output Urine Total 600 ml 950 ml # Voids 4 General Appearance: no acute distress HEENT: normocephalic Respiratory: chest wall non-tender, lungs clear Abdomen: normal bowel sounds Extremities: no cyanosis Laboratory Tests 12/12/19 08:40: White Blood Count 5.7, Red Blood Count 4.19L, Hemoglobin 13.0L, Hematocrit 42.4 , Mean Corpuscular Volume 101H, Mean Corpuscular Hemoglobin 31.1H, Mean Corpuscular Hemoglobin Concent 30.7L, Red Cell Distribution Width 15.8H, Platelet Count 111L, Mean Platelet Volume 7.7, Neutrophils (%) (Auto) 67.3, Lymphocytes (%) (Auto) 17.2L, Monocytes (%) (Auto) 11.3H, Eosinophils (%) (Auto ) 3.0, Basophils (%) (Auto) 1.2, Sodium Level 140, Potassium Level 3.4L, Chloride Level 94L, Carbon Dioxide Level 44*H, Anion Gap 3L, Blood Urea Nitrogen 34H, Creatinine 1.5H, Estimat Glomerular Filtration Rate 59.4, Glucose Level 233H, Calcium Level 8.7 Current Medications Medications (Trade) Dose Ordered Sig/Marybeth Route PRN Reason Start Time Stop Time Status Last Admin Dose Admin Acetaminophen (Tylenol) 650 mg Q6H PRN ORAL For Headache and fever >100.2 12/04/19 16:30 01/03/20 16:29 12/12/19 02:12 Acetaminophen/ Hydrocodone Bitart ([place] 5/325) 1 tab Q4H PRN ORAL Severe Pain (Pain Scale 7-10) 12/11/19 09:00 12/18/19 08:59 Allopurinol (Zyloprim) 200 mg DAILY ORAL 12/04/19 09:00 01/03/20 08:59 12/12/19 09:16 Aspirin (ASA) 81 mg DAILY ORAL 12/04/19 09:00 01/18/20 08:59 12/12/19 09:16 Furosemide (Lasix) 80 mg TID ORAL 12/12/19 13:00 01/11/20 12:59 12/12/19 17:56 Lisinopril (ZestriL) 5 mg DAILY ORAL 12/04/19 09:00 01/03/20 08:59 12/11/19 08:41 Nitroglycerin (Ntg) 1 patch Q24H PRN TDERMAL CHEST PAIN 12/03/19 15:00 01/02/20 14:59 Ondansetron HCl (Zofran) 4 mg Q6H PRN IVP Nausea & Vomiting 12/03/19 14:00 01/02/20 13:59 Spironolactone (Aldactone) 25 mg DAILY ORAL 12/05/19 09:00 01/04/20 08:59 12/12/19 09:16 Assessment/Plan Assessment/Plan IMPRESSION: 1. Decompensated congestive heart failure/systolic heart failure. 2. Cardiomyopathy. 3. Hypertension. DISCUSSION: Patient has a small right effusion which has decreased. I will follow carefully. 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 Scheduled for AICD Continue diuresis Now down to 4L/min O2 Hong Gross Omar Syed MD Dec 12, 2019 18:25
--- NOTE | 2019-12-12 18:30 | Progress Note ---
DATE: 12/12/2019 SUBJECTIVE: This is an elderly 54-year-old male, sitting in the bed comfortable. No distress. Has poor IV access. Patient had no short of breath and short of breath is improving. No chest pain. OBJECTIVE: VITAL SIGNS: Blood pressure is 130/70, pulse 74, respirations 18, no fever. HEENT: NAD. CHEST: Bilaterally clear. CARDIOVASCULAR: Regular rhythm. ABDOMEN: Soft. Positive bowel sounds. EXTREMITIES: No edema GENITOURINARY: Deferred. ASSESSMENT: 1. CHF. 2. Cardiomyopathy. 3. Hypertension. 4. Chronic back pain. 5. Anxiety. PLAN: Continue current treatment. Patient on Lasix, bronchodilator treatment. Continue p.o. steroid. Continue current treatment. Patient is going to have ICD placement tomorrow. Discussed with Dr. Kimble and discussed with charge nurse. Dav Cardoza M.D. DR: CHAD JOB#: [id number] CC:
--- NOTE | 2019-12-12 19:26 | NUR ---
NURSE NOTES: Report received from Alice RN. Patient is noted to be awake and alert x 4. Patient is noted to be on oxygen via nasal canula, patient became verbally upset when oxygen was lowered back down to 4 liters as ordered from 8. Jeremy RINALDI educated patient that it must stay on 4 liters to follow the doctors orders. Patient does not appear to be in respiratory distress at this time. Endorsed to Jeremy RINALDI that Doctor Kimble is aware of high carbon dioxide laboratory value. Endorsed to Jeremy RINALDI that patient has a history of V-tach. Per MD orders from Doctor Kimble, Doctor Kimble does not need to be notified unless the v tach is 15 beats or longer. Endorsed to Jeremy RINALDI that patient is ordered to have defibrillator placed tomorrow. Patient has refused to sign consent, patient has refused pre-op covid 19 testing, and patient is refusing to have IV line placed. Jeremy RINALDI asked patient if he would sign consent, patient stated he does not need to answer that question at the moment. Patient currently has no IV access and was endorsed to Jeremy RINALDI that MD is aware. Call light in reach. Will continue to follow plan of care.
[2019-12-12 20:00] VITALS: BP 99/68
--- NOTE | 2019-12-12 21:12 | NUR ---
NURSE NOTES: Jeremy RINALDI spoke with patient regarding defibrillator placement that is supposed to take place tomorrow per orders of Doctor Kimble. Jeremy RINALDI explained the purpose of the procedure and why it was being preformed. Patient stated that he spoke with Doctor Kimble and was informed by Doctor Kimble that the procedure would be done on TuesdayDecember 13 not tomorrow. Jeremy RINALDI apologized and explained that there may of been a miscommunication and that the date may have possibly been changed. The patient stated that if this is true then needs to be informed that by the Doctor himself. Jeremy RINALDI tried to encourage the patient to follow through with procedure even though the date changed of when he was originally informed. The patient continues to refuse. The patient informed Jeremy RINALDI that he may not even want the procedure done and would like more time to think about it. At this time the patient will not sign consent, will not have a pre-op covid 19 test preformed, will continue to eat if he wishes, and does not want to have IV access. Jeremy RINALDI informed Charged Nurse Heraclio. Jeremy RINALDI called and left voicemail with Doctor Kimble. No call back at this time.
--- NOTE | 2019-12-12 21:21 | NUR ---
NURSE NOTES: Spoke with Doctor Kimble regarding patient refusing nursing care, and refusing to have defibrillator placed at this time. Doctor Kimble is aware of refusal and informed Jeremy RINALDI that he will speak with patient tomorrow.
[2019-12-13] VITALS: BP 105/67
--- NOTE | 2019-12-13 00:45 | NUR ---
NURSE NOTES: Patient requested to have three cranberry juices. Jeremy RINALDI educated the patient that he is currently NPO due to the scheduled procedure this coming day that was previously discussed with patient earlier in the shift. Jeremy RINALDI informed that patient if he drinks it could delay the procedure. The patient informed Jeremy RINALDI that he will not be having the procedure tomorrow and has the right to request a drink.
--- NOTE | 2019-12-13 01:28 | NUR ---
NURSE NOTES: Patient is requesting cookies. Jeremy RINALDI again educated patient that if he has the cookies he is possibly going to cause a delay in his procedure. The patient stated "That's okay, I'm not going to go through with the procedure in the morning, I am going to refuse it, can I please have some cookies now".
[2019-12-13 04:00] VITALS: BP 95/69
--- NOTE | 2019-12-13 07:19 | NUR ---
HAND-OFF: Report given to Alice RN. Endorsed that patient was resistive to care. Endorsed that patient is refusing to have defibrillator placed today. Endorsed that patient continues to increase oxygen flow against medical advice. Doctor Sherwin is aware. Patient currently asleep in bed.
--- NOTE | 2019-12-13 07:20 | NUR ---
NURSE NOTES: Received patient in bed asleep. O2 via NC at 8LPM, no SOB or acute distress. Refusing IV reinsertion and signing consent as per night RN. HOB elevated. Bed locked in lowest position. Call light within reach. Will continue plan of care.
[2019-12-13 08:00] VITALS: BP 121/72
[2019-12-13] MEDS: Lisinopril 2.5mg tab ORAL SCH (08:55)
[2019-12-13] MEDS: Furosemide 80mg tab ORAL SCH ×2 (08:56→13:48)
[2019-12-13] MEDS: Aspirin Baby 81mg ORAL SCH (08:56)
[2019-12-13] MEDS: Allopurinol 100mg Tab ORAL SCH (08:56)
[2019-12-13] MEDS: Spironolactone 25mg tab ORAL SCH (08:56)
--- NOTE | 2019-12-13 08:58 | General Progress Note ---
Assessment/Plan Assessment/Plan: (1) CHF (2) Chest pain (3) Peripheral neuropathy Patient will be continued on [place] D/w Dr. Retneria and he concurred. Subjective Date patient seen: Dec 13, 2019 Time patient seen: 08:45 - am Allergies: Coded Allergies: SIMVASTATIN (Verified Allergy, Unknown, 07/03/19) Uncoded Allergies: STATINS (Allergy, Unknown, 08/13/19) Subjective Constitutional: Reports: no symptoms HEENT: Reports: no symptoms Cardiovascular: Reports: no symptoms Respiratory: Reports: no symptoms Gastrointestinal/Abdominal: Reports: no symptoms Genitourinary: Reports: no symptoms Neurologic/Psychiatric: Reports: no symptoms Endocrine: Reports: no symptoms Hematologic/Lymphatic: Reports: no symptoms Subjective: Patient resting in bed no signs of pain or distress. Using the [place] as needed. Objective Last 24 Hour Vital Signs Date Time Temp Pulse Resp B/P (MAP) Pulse Ox O2 Delivery O2 Flow Rate FiO2 12/13/19 08:55 121/72 12/13/19 08:00 100 20 121/72 (88) 100 12/13/19 04:00 104 12/13/19 04:00 97.6 75 19 95/69 (78) 99 12/13/19 00:00 108 12/13/19 00:00 99.0 84 18 105/67 (80) 99 12/12/19 21:00 Nasal Cannula 4.0 12/12/19 20:00 103 12/12/19 20:00 98.8 78 19 99/68 (78) 100 12/12/19 16:00 99.0 98 20 100/68 (79) 98 12/12/19 16:00 101 12/12/19 14:21 Nasal Cannula 11.0 Nasal Cannula 4.0 12/12/19 12:00 98.1 46 20 88/68 (75) 99 12/12/19 12:00 102 12/12/19 09:00 Nasal Cannula 4.0 Nasal Cannula 4.0 12/12/19 09:00 96/64 Intake and Output 12/12/19 12/13/19 19:00 07:00 Intake Total 600 ml 360 ml Output Total 1200 ml 800 ml Balance -600 ml -440 ml Intake Oral 600 ml 360 ml Output Urine Total 1200 ml 800 ml # Voids 5 4 Height (Feet): 5 Height (Inches): 3.00 Weight (Pounds): 193 Objective General Appearance: no apparent distress, alert EENT: PERRL/EOMI, normal ENT inspection Neck: non-tender, normal alignment Cardiovascular: normal rate, regular rhythm Respiratory/Chest: decreased breath sounds Abdomen: non tender, soft Extremities: non-tender Edema: trace edema Neurologic: alert, oriented x 3 Tremayne Fenton Dec 13, 2019 08:58
--- NOTE | 2019-12-13 08:58 | NUR ---
NURSE NOTES: Potassium 3.[address] shepard, awaiting response. Patient refused to talk about upcoming surgery, said will wait for doctor.
--- NOTE | 2019-12-13 11:01 | Pulmonology Progress Note ---
Subjective Interval Events: None new Constitutional: Reports: no symptoms HEENT: Repors: no symptoms Respiratory: Reports: no symptoms Cardiovascular: Reports: no symptoms Gastrointestinal/Abdominal: Reports: no symptoms Genitourinary: Reports: no symptoms Allergies: Coded Allergies: SIMVASTATIN (Verified Allergy, Unknown, 07/03/19) Uncoded Allergies: STATINS (Allergy, Unknown, 08/13/19) Objective Last 24 Hour Vital Signs Date Time Temp Pulse Resp B/P (MAP) Pulse Ox O2 Delivery O2 Flow Rate FiO2 12/13/19 09:00 Nasal Cannula 8.0 12/13/19 08:55 121/72 12/13/19 08:00 100 20 121/72 (88) 100 12/13/19 04:00 104 12/13/19 04:00 97.6 75 19 95/69 (78) 99 12/13/19 00:00 108 12/13/19 00:00 99.0 84 18 105/67 (80) 99 12/12/19 21:00 Nasal Cannula 4.0 12/12/19 20:00 103 12/12/19 20:00 98.8 78 19 99/68 (78) 100 12/12/19 16:00 99.0 98 20 100/68 (79) 98 12/12/19 16:00 101 12/12/19 14:21 Nasal Cannula 11.0 Nasal Cannula 4.0 12/12/19 12:00 98.1 46 20 88/68 (75) 99 12/12/19 12:00 102 Intake and Output 12/12/19 12/13/19 19:00 07:00 Intake Total 600 ml 360 ml Output Total 1200 ml 800 ml Balance -600 ml -440 ml Intake Oral 600 ml 360 ml Output Urine Total 1200 ml 800 ml # Voids 5 4 General Appearance: no acute distress HEENT: normocephalic Respiratory: chest wall non-tender, lungs clear Abdomen: normal bowel sounds Extremities: no cyanosis Current Medications Medications (Trade) Dose Ordered Sig/Marybeth Route PRN Reason Start Time Stop Time Status Last Admin Dose Admin Acetaminophen (Tylenol) 650 mg Q6H PRN ORAL For Headache and fever >100.2 12/04/19 16:30 01/03/20 16:29 12/12/19 02:12 Acetaminophen/ Hydrocodone Bitart (Partlow 5/325) 1 tab Q4H PRN ORAL Severe Pain (Pain Scale 7-10) 12/11/19 09:00 12/18/19 08:59 Allopurinol (Zyloprim) 200 mg DAILY ORAL 12/04/19 09:00 01/03/20 08:59 12/13/19 08:56 Aspirin (ASA) 81 mg DAILY ORAL 12/04/19 09:00 01/18/20 08:59 12/13/19 08:56 Furosemide (Lasix) 80 mg TID ORAL 12/12/19 13:00 01/11/20 12:59 12/13/19 08:56 Lisinopril (ZestriL) 5 mg DAILY ORAL 12/04/19 09:00 01/03/20 08:59 12/13/19 08:55 Nitroglycerin (Ntg) 1 patch Q24H PRN TDERMAL CHEST PAIN 12/03/19 15:00 01/02/20 14:59 Ondansetron HCl (Zofran) 4 mg Q6H PRN IVP Nausea & Vomiting 12/03/19 14:00 01/02/20 13:59 Potassium Chloride (K-Dur) 20 meq ONCE ORAL 12/13/19 09:30 12/13/19 11:00 Spironolactone (Aldactone) 25 mg DAILY ORAL 12/05/19 09:00 01/04/20 08:59 12/13/19 08:56 Assessment/Plan Assessment/Plan IMPRESSION: 1. Decompensated congestive heart failure/systolic heart failure. 2. Cardiomyopathy. 3. Hypertension. DISCUSSION: Patient has a small right effusion which has decreased. 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 Scheduled for AICD Tuesday Continue diuresis Now down to 4L/min O2 Hong Gross Omar Syed MD Dec 13, 2019 11:01
[2019-12-13 12:00] VITALS: BP 96/50
[2019-12-13] MEDS ORDERED: FUROSEMIDE80 M1 ORAL (12:18)
[2019-12-13] MEDS ORDERED: SPIRONOLACTONE25 MG ORAL (12:22)
[2019-12-13] MEDS ORDERED: PREDNISONE10 MG ORAL (12:23)
[2019-12-13] MEDS ORDERED: ALLOPURINOL100 M1 ORAL (12:24)
[2019-12-13] MEDS ORDERED: LISINOPRIL2.5 MG ORAL (12:25)
[2019-12-13] MEDS ORDERED: ASPIRIN EC81 MG ORAL (12:25)
[2019-12-13] MEDS ORDERED: AMOXICILLI250 MG/5 M ORAL (12:26)
[2019-12-13] MEDS ORDERED: ADVAIR 250-501 EACH INH (12:28)
[2019-12-13] MEDS ORDERED: ALBUTEROL SULF8.5 G1 INH (12:28)
--- NOTE | 2019-12-13 12:34 | NUR ---
MEDICAL CENTER REPRESENTATIVE NOTE PT was last admitted to [facility] [place] 10/11/2019-10/26/2019. Pt presents as A &o4x. Pt is independent w/ ADLs and IADLs. Pt has been staying in the [place] [address] in [place]. Pt reports he received SSI in the past, last received a year ago. Pt reports he will submit the paperwork to Social Security to get his income back. Pt does not receive any income at this time. Pt uses tobacco and denies other substance abuse. This SW asked if pt has any concern on surgery as he currently refused to have one. Pt declined to share any concern w/ rosalind VALDEZ and reports he will discuss his surgery option w/ . SW explained [employer] [facility] and offered the referral. However, pt declined and stated that he will return to [place] [address] in [place] upon DC. Pt reports he has some savings to pay his housing. Pt shares he will get his own housing once he receives his income from Social Security Office. SW explained negative ramification of unlicensed facilities. Pt verbalized understanding. Pt to be discharged to his preferred location upon DC. The mailing address is his sister's apartment: [id number] [place] [address]. Emergency contact: Monica Cowan (sister) [phone]
--- NOTE | 2019-12-13 15:51 | Cardiac Electrophysiology PN ---
Assessment/Plan Assessment/Plan 1. Exacerbation of CHF in this patient with nonischemic cardiomyopathy, EF of 10 % to 15%. On COreg, lisinopril, Aldactone and Lasix 80 po tid Scheduled for ICD today but now wants to leave. 2. 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 Needs ICD but refusing now 3. History of atrial flutter. 4. Hypertension. Continue current heart failure therapy. 5. History of Graves disease. 6. Morbid obesity. 7. Renal failure, Cr 1.4 DW RN, DR Cardoza Subjective Subjective Refusing iv Dobutamine or iv Lasix Refused Covid test and now refusing ICD. Wants to get it done as out patient Objective Last 24 Hour Vital Signs Date Time Temp Pulse Resp B/P (MAP) Pulse Ox O2 Delivery O2 Flow Rate FiO2 12/13/19 12:00 96 12/13/19 12:00 100.4 89 18 96/50 (65) 97 12/13/19 09:00 Nasal Cannula 8.0 12/13/19 08:55 121/72 12/13/19 08:00 100 20 121/72 (88) 100 12/13/19 08:00 102 12/13/19 04:00 104 12/13/19 04:00 97.6 75 19 95/69 (78) 99 12/13/19 00:00 108 12/13/19 00:00 99.0 84 18 105/67 (80) 99 12/12/19 21:00 Nasal Cannula 4.0 12/12/19 20:00 103 12/12/19 20:00 98.8 78 19 99/68 (78) 100 12/12/19 16:00 99.0 98 20 100/68 (79) 98 12/12/19 16:00 101 Intake and Output 12/12/19 12/13/19 19:00 07:00 Intake Total 600 ml 360 ml Output Total 1200 ml 800 ml Balance -600 ml -440 ml Intake Oral 600 ml 360 ml Output Urine Total 1200 ml 800 ml # Voids 5 4 Objective HEAD AND NECK: Positive JVD. LUNGS: Decreased breath sounds. CARDIOVASCULAR: Regular S1 and S2 with no gallop. ABDOMEN: Soft. EXTREMITIES: 2+ pitting edema. He also has scrotal edema. Spenser Kimble MD Dec 13, 2019 15:51
[2019-12-13 16:00] VITALS: BP 100/70
--- NOTE | 2019-12-13 16:45 | NUR ---
NURSE NOTES: Patient discharged in stable condition. Prescription and medications given. Discharge instructions given, verbalized understanding. Telebox removed. ID band removed. No new skin issues noted. Belongings accounted for. Ambulated to lobby accompanied by nurse.
--- NOTE | 2019-12-14 05:00 | Discharge Summary ---
DATE OF ADMISSION: 12/03/2019 DATE OF DISCHARGE: 12/13/2019 DISCHARGE SUMMARY/PROGRESS NOTE HISTORY OF PRESENT ILLNESS: This is a 54-year-old male, who came to the emergency room for short of breath, hypoxia, CHF, severe cardiomyopathy, and hypertension. The patient has been in the hospital for almost 10 days. The patient has been poor compliant and he was scheduled for ICD placement. Initially, he agreed with director global market research, now he is refusing. Ate his food. The patient also refusing for IV access and [place]al-[place]-baud he was refusing medical treatment. The patient is sitting in the bed. He wants to go home. He is physically doing better. His oxygen levels are good on 2 liter oxygen. The patient has been going to bathroom by himself, does not need any assistance. The patient claims he want to go back to the motel. He does not want to go to the intermediate or long-term hospital for treatment and also refusing for ICD at this point. PHYSICAL EXAMINATION: VITAL SIGNS: Blood pressure is 121/72, pulse 100, respirations 20, temperature 97.6. HEENT: No JVD. CHEST: Bilateral decreased breath sounds. Few crackles. CARDIOVASCULAR: Regular rhythm. No gallop. No murmur. ABDOMEN: Soft. Positive bowel sounds. Nontender. EXTREMITIES: Trace edema GENITOURINARY: Deferred. LABORATORY DATA: White count is 5.7, hemoglobin 13. Chemistry panel - BUN 34, creatinine 1.5, glucose 233, potassium 3.4. HOSPITAL COURSE: The patient had Cardiology consult as well as had ID consult and Pulmonary consult. The patient was also started on a steroid, IV antibiotics, and dobutamine drips. Later on, the patient had no IV access. He does not want to put IV line, so dobutamine drip was given for three days by director global market research. The patient clinically slightly improved at this time, but he is refusing IV access, cannot get a dobutamine drip and was discussed ICD, now he is refusing this morning. The patient is probably ready to go home. The patient is refusing to placement as well as long-term hospital. He is going to go home. DISCHARGE DIAGNOSES: 1. CHF. 2. Cardiomyopathy. 3. Acute COPD. 4. Hypertension. 5. Borderline hyperglycemia secondary to steroids. 6. Anxiety. 7. Chronic pain. DISCHARGE MEDICATIONS: See the prescription. DISCHARGE FOLLOWUP: The patient was recommended to follow up with PCP. Also, I gave him my card to call my office and make appointment. DIET: He is on 2 g sodium, fluid restriction. ACTIVITY: As tolerated. Dav Cadroza M.D. DR: DESIRAE JOB#: [id number] CC:
== END 2019-12-13 16:45 | DRG 292 ==
LOC: EMR 08:09 → 2E 11:04 → EDBEDREQ 11:55 → 2E 14:57
DX: I11.0 Hypertensive heart disease with heart failure (principal); N17.9 Acute kidney failure, unspecified; I48.92 Unspecified atrial flutter; I47.2 Ventricular tachycardia; J44.0 Chronic obstructive pulmonary disease with (acute) lower respiratory infection; J44.1 Chronic obstructive pulmonary disease with (acute) exacerbation; I50.23 Acute on chronic systolic (congestive) heart failure; E05.00 Thyrotoxicosis with diffuse goiter without thyrotoxic crisis or storm; Z68.33 Body mass index [BMI] 33.0-33.9, adult; I42.8 Other cardiomyopathies; Z88.8 Allergy status to other drugs, medicaments and biological substances; E66.01 Morbid (severe) obesity due to excess calories; G89.29 Other chronic pain; F41.8 Other specified anxiety disorders; G62.9 Polyneuropathy, unspecified; J44.9 Chronic obstructive pulmonary disease, unspecified; F17.200 Nicotine dependence, unspecified, uncomplicated; J20.9 Acute bronchitis, unspecified
CPT/HCPCS: 36415; 71045; 80048; 80053; 83735; 83880; 84439; 84443; 84484; 85007; 85025; 85610; 85730; 93005; 93306; 94664; 96374; 96375; 99285; J2405; J8499

== ENCOUNTER 2019-12-13 19:45 | Inpatient (IN) | payer MEDICARE, MEDICAID ==
[~2019-12-13] VITALS: Ht 167.6 cm; Wt 86.2 kg
[~2019-12-13 19:45] MED LIST changes: +ADVAIR 250-501 EACH INH; +ALBUTEROL SULF8.5 G1 INH; +AMOXICILLI250 MG/5 M ORAL; +ASPIRIN EC81 MG ORAL; +FUROSEMIDE80 M1 ORAL; +LISINOPRIL2.5 MG ORAL; +METOLAZONE2.5 MG PO; +PREDNISONE10 MG ORAL; +SPIRONOLACTONE25 MG ORAL
--- NOTE | 2019-12-13 20:02 | Emergency Room Report ---
History of Present Illness General Chief Complaint: Upper Respiratory Illness Source: Patient Present Illness HPI 54-year-old -German male with past medical history of CHF, history of atrial flutter, hypertension, Graves' disease, morbid obesity, and chronic kidney disease brought in by ambulance for severe shortness of breath. Patient states that he left AGAINST MEDICAL ADVICE this morning because he wanted to have a procedure done today but it was not scheduled until tomorrow so he left to go get a sandwich with his sister. At baseline, patient states he is on home oxygen at 4 L. He states he has been compliant with all of his medications but consistently feels like he is not able to catch his breath. Also states that he has been having a cough with productive sputum. He describes the sputum as green. Nonbloody. He is unaware of whether he has had positive coronavirus contacts recently. Denies recent travel The patient's symptoms were gradual onset, severity was moderate, duration since 3 days.. Past medical history: CHF, a flutter, hypertension, Graves' disease, obesity, CKD Past surgical history: Denies Smoking: Denies Alcohol use: Denies Drug use: Denies Review of systems: CONST: No fevers +chills, No night sweats PULMONARY: + productive cough, +shortness of breath CARDIAC: + chest pain, No palpitations GI: No vomiting, No diarrhea , No melena_or_BRBPR : No dysuria, No hematuria, No discharge NEURO: No new_focal_weakness_or_numbness, No confusion, No vision changes 14 point Review of Systems is otherwise negative except per HPI Physical Exam: GENERAL: Awake_alert_ nontoxic, no acute distress Spo2 90% on 4L (abnormal reading for RA) EYES: Extraocular muscles are intact. Conjunctivae clear. Lids without swelling ENT: External nose and ear normal_in_appearance. Oropharynx clear. Head_ atraumatic, Moist_oral_mucosa NECK: + JVD. No meningismus. No thyromegaly. Supple. Trachea midline RESP: Mild increased respiratory effort. Symmetric rise. No stridor. Clear_to_ auscultation_ Course rales bilaterally CARDIAC: Tachycardic. Regular rhythm on_auscultation 2+ pedal edema symmetric bilaterally ABDOMEN: Soft. Nondistended. Nontender_No_rebound_or_guarding. Obese. MSK: Normal muscle tone, without rigidity. Extremities without asymmetric deformity or swelling. SKIN: Warm and dry. No visible cyanosis or pallor NEUROLOGIC: Alert, oriented x3. Motor_and_sensation_grossly_intact. No truncal ataxia. Gait_normal Psych: Normal mood and affect, normal judgment and insight - COORDINATION OF CARE Case was discussed with: Patient Any labs and imaging that were ordered were interpreted as part of the medical decision making: Medical Decision Making/Plan: Differential includes CHF, pulmonary edema, pulmonary embolism, pneumonia, pleural effusions, pneumothorax, among others. EKG shows sinus tachycardia with PVCs. Lateral Twi. Chest xray shows severe cardiomegaly. No pleural effusions. No multifocal pneumonia. Labs show BNP elevation consistent with CHF exacerbation. Troponin negative x1. Creatinine is incidentally elevated at 1.5. Review of previous admission is consistent COVID negative. I reviewed patient's cardiology note from this morning prior to his leaving AGAINST MEDICAL ADVICE. Dr. Kimble advised that patient stay for AICD placement. He was having recurrent long runs of V. tach up to 24 beats. When patient was asked whether he wanted to stay he refused. Also was refusing COVID test saying that he preferred to do as an outpatient. Symptoms are not likely to be due to pulmonary embolism, the patient has no significant PE risk factors and has a more likely alternate cause of their symptoms, given their chest xray findings, lung exam and presentation so workup was deferred and not pursued. The patient appears to be in decompensated CHF in exacerbation and not a suitable candidate for outpatient treatment so will be admitted for inpatient diuresis and further evaluation and treatment. I spoke with Dr. Contreras, and reviewed the patients presentation, workup, results, and treatment. They will admit the patient for further care and evaluation, and assume care of the patient at this time. CRITICAL CARE TIME I spent 40 minutes of critical care time. This time excludes any separately billable procedures. Treatments/Evaluations: Emergent and rapid respiratory assessment and management with continuous monitoring. Advanced airway equipment at the ready, while the patient's respiratory symptoms were stabilized. Given the patients presentation with CHF requiring oxygen, there existed the potential for imminent deterioration in the patient's condition due to respiratory compromise. Organ systems at risk for failure without immediate intervention include [ pulmonary / respiratory] Allergies: Coded Allergies: SIMVASTATIN (Verified Allergy, Unknown, 07/03/19) Uncoded Allergies: STATINS (Allergy, Unknown, 08/13/19) COVID-19 Screening Contact w/high risk pt: No Recent Travel to affected area: No Experienced COVID-19 symptoms?: Yes COVID-19 symptoms experienced: Shortness of Breath COVID-19 Testing performed ZIGZAG STITCHER: No Nursing Documentation-PMH Hx Hypertension: Yes - hyperthyroidism Hx Cancer: No Hx Gastrointestinal Problems: No Hx Neurological Problems: No Physical Exam Vital Signs Date Time Temp Pulse Resp B/P (MAP) Pulse Ox O2 Delivery O2 Flow Rate FiO2 12/13/19 19:38 99.9 102 22 142/78 (99) 91 Room Air Sp02 EP Interpretation: reviewed, abnormal Medical Decision Making Diagnostic Impression: Primary Impression: CHF exacerbation Additional Impressions: Cardiomyopathy Ventricular tachycardia Hx of atrial flutter Refractory end stage heart failure MARGUERITE (acute kidney injury) Anemia HTN (hypertension) Pulmonary HTN COPD (chronic obstructive pulmonary disease) Nicotine addiction EKG Diagnostic Results GALLITO Hollins 12-lead EKG (interpreted by me) Time: 1935 Indication: Rhythm analysis Tracing visualized and Interpreted by me. Rhythm: Sinus tachycardia Rate: 111 bpm QTc: 478 Morphology: No_significant_ST_elevations_or_depressions, No STEMI Impression: Sinus tachycardia. PVCs. Nonspecific T wave abnormality. No acute STEMI Rhythm Strip Diag. Results Rhythm Strip Time: 20:47 EP Interpretation: yes Rate: 110 Rhythm: other - PVCs. Sinus tachycardia. Other Impression Sinus tachycardia Chest X-Ray Diagnostic Results Chest X-Ray Diagnostic Results : GALLITO Valdesibmario Text Chest X-ray: Views: 1 view(s) Indication: SOB Findings: Severe CM. Mediastinum normal. No infiltrate. Impression: CM The X-ray(s) were independently viewed and interpreted contemporaneously - Electronically signed by Ariadna perez DO Reevaluation Time: 20:48 Last Vital Signs Date Time Temp Pulse Resp B/P (MAP) Pulse Ox O2 Delivery O2 Flow Rate FiO2 12/13/19 19:38 99.9 102 22 142/78 (99) 91 Room Air Status: improved Disposition: ADMITTED INPATIENT Admit Decision Time: 20:00 Condition: Stable Ariadna Cano D.O. Dec 13, 2019 20:02
[2019-12-13] MEDS ORDERED: cefTRIAXone 2 GM in NS 55 ML IVPB ONE (20:15)
[2019-12-13] MEDS ORDERED: Azithromycin 250mg tab ORAL ONE (20:15)
[2019-12-13 20:52] VITALS: BP 142/78
[2019-12-13 21:11] LABS: BASOPHILS % (AUTO) 1.2 % (0.0-2.0); EOSINOPHILS % (AUTO) 1.6 % (0.0-3.0); HEMATOCRIT 39.4 % (42.0-52.0); HEMOGLOBIN 12.4 G/DL (14.2-18.0); LYMPHOCYTES % (AUTO) 10.9 % (20.0-45.0); MEAN CORPUSCULAR VOLUME 99 FL (80-99); MONOCYTES % (AUTO) 11.3 % (1.0-10.0); PLATELET COUNT 103 K/UL (150-450); RED BLOOD COUNT 3.99 M/UL (4.70-6.10); RED CELL DISTRIBUTION WIDTH 15.9 % (11.6-14.8); WHITE BLOOD COUNT 7.3 K/UL (4.8-10.8)
[2019-12-13 21:30] VITALS: BP_SYST 12; BP_SYST 123; BP_DIAS 102
[2019-12-13] MEDS ORDERED: HYDROcodone/Acetamin 5/325 tab ORAL ONE (21:30)
[2019-12-13 21:33] LABS: ALANINE AMINOTRANSFERASE 25 U/L (12-78); ALBUMIN 3.6 G/DL (3.4-5.0); ALBUMIN/GLOBULIN RATIO 1.1 (1.0-2.7); ALKALINE PHOSPHATASE 77 U/L (46-116); ANION GAP 0 mmol/L (5-15); ASPARTATE AMINO TRANSFERASE 22 U/L (15-37); BILIRUBIN,TOTAL 0.6 MG/DL (0.2-1.0); BLOOD UREA NITROGEN 28 mg/dL (7-18); CALCIUM 9.1 MG/DL (8.5-10.1); CHLORIDE 100 MMOL/L (98-107); CREATININE 1.5 MG/DL (0.55-1.30); POTASSIUM 3.8 MMOL/L (3.5-5.1); SODIUM 141 MMOL/L (136-145)
[2019-12-13 21:35] LABS: CARBON DIOXIDE 42 MMOL/L (21-32)
[2019-12-13] MEDS ORDERED: Acetaminophen 500mg (ES) tab ORAL ONE (22:00)
[2019-12-13 22:31] VITALS: BP 146/91
[2019-12-13 23:20] VITALS: BP 121/80
[2019-12-13] MEDS ORDERED: Morphine Sulfate 4mg/ml Inj (IV USE ONLY) IVP PRN (23:30)
[2019-12-13] MEDS ORDERED: Morphine Sulfate 2mg/ml Inj(IV/IM USE ONLY) IVP PRN (23:30)
[2019-12-13 23:36] VITALS: BP 121/80
[2019-12-14 00:30] VITALS: BP 132/92
[2019-12-14] MEDS ORDERED: Spironolactone 25mg tab ORAL SCH (09:00)
[2019-12-14] MEDS ORDERED: Heparin 5000 units/ml inj SUBQ SCH (09:00)
[2019-12-14] MEDS ORDERED: HydrALAZINE 10mg Tab ORAL SCH (09:00)
[2019-12-14] MEDS ORDERED: Aspirin EC 81mg tab ORAL SCH (09:00)
[2019-12-14] MEDS ORDERED: Allopurinol 100mg Tab ORAL SCH (09:00)
[2019-12-14] MEDS ORDERED: Wixela 250/50 Inhaler - 60 dose INH SCH (09:00)
[2019-12-14] MEDS ORDERED: Lisinopril 2.5mg tab ORAL SCH (09:00)
--- NOTE | 2019-12-14 16:16 | Diagnostic Imaging Report ---
Indication: Cough Technique: One view of the chest Comparison: 12/03/2019 Findings: Heart is enlarged. Previously demonstrated left midlung atelectasis is no longer evident.. There is very mild pulmonary venous congestion, similar in extent to the previous study. There may be some pleural fluid on the left. Impression: Massive cardiomegaly Mild pulmonary venous congestion Small left pleural effusion
--- NOTE | 2019-12-16 15:30 | Discharge Summary ---
Discharge Summary Discharge Summary _ DATE OF ADMISSION: 12/13/2019 DATE OF DISCHARGE: 12/14/2019 BRIEF HOSPITAL COURSE: Patient is a 54-year-old -Polish male, with past medical history of CHF , atrial flutter, hypertension, Graves' disease, morbid obesity and chronic kidney disease was brought in by ambulance for severe shortness of breath. Patient stated he left AGAINST MEDICAL ADVICE in the morning. He had a scheduled procedure tomorrow. He left to get sandwich with his sister. At baseline, patient is on home oxygen at 4 L. He stated he has been compliant with all of his medications but constantly feels like he is not able to catch his breath. He also had a cough with productive phlegm. Sputum was green and nonbloody. Upon evaluation at the ED, review of previous hospital stay record was reviewed. Cardiology is advised patient for AICD placement. He had recurrent long runs of V. tach up to 24 beats. Patient refused to stay. He also refused COVID testing. Patient appeared to be in decompensated CHF exacerbation and not suitable candidate for outpatient treatment. He was then admitted for inpatient diuresis and further evaluation and treatment. Upon transfer to the floor, patient asked for IV morphine. Medication was not given and patient left AGAINST MEDICAL ADVICE. FINAL DIAGNOSES: CHF exacerbation Noncompliance with medical treatment DISPOSITION: Patient left AGAINST MEDICAL ADVICE. I have been assigned to complete a discharge summary on this account, I was not involved with the patient's management.--BRENDEN Lorenzana Jacqueline Robles NP Dec 16, 2019 15:30
--- NOTE | 2019-12-16 15:31 | History & Physical ---
History and Physical History & Physicial Patient left AGAINST MEDICAL ADVICE before being seen Carey Gomez NP Dec 16, 2019 15:31
== END 2019-12-14 00:30 | disposition left against medical advice (07) | DRG 292 ==
LOC: EDBD 19:45 → EDBEDREQ 19:54 → EMR 20:09 → 2E 20:21 → UNDOADMIN 20:21 → 2W 20:40 → EDBEDREQ 22:34
DX: I13.0 Hypertensive heart and chronic kidney disease with heart failure and stage 1 through stage 4 chronic kidney disease, or unspecified chronic kidney disease (principal); I48.92 Unspecified atrial flutter; I47.2 Ventricular tachycardia; N18.9 Chronic kidney disease, unspecified; I11.0 Hypertensive heart disease with heart failure; I50.9 Heart failure, unspecified; Z91.14 Patient's other noncompliance with medication regimen; E05.00 Thyrotoxicosis with diffuse goiter without thyrotoxic crisis or storm; Z88.8 Allergy status to other drugs, medicaments and biological substances
CPT/HCPCS: 36415; 71045; 80053; 83880; 84484; 85025; 96365; 96375; 99291; U0002

== ENCOUNTER 2019-12-15 21:52 | Emergency (ER) | payer MEDICARE, MEDICAID ==
[~2019-12-15] VITALS: Ht 167.6 cm; Wt 86.2 kg
[2019-12-15] MEDS ORDERED: Aspirin Baby 81mg ORAL ONE (22:15)
--- NOTE | 2019-12-15 22:15 | Emergency Room Report ---
History of Present Illness General Chief Complaint: Chest Pain Source: Patient, Medical Record Present Illness HPI This is a 54-year-old male with a history of atrial fibrillation/atrial flutter and also has severe cardiopathy with ejection fraction around 10 to 15%. He is noncompliant with medical care. He has been admitted here a few times for the same thing. He is recommended to get an ICD but refused. He was recently admitted and signed out AGAINST MEDICAL ADVICE. During the hospitalization, he refused several treatment plans. He just left here the other day. He came back with chief complaint of chest pain and shortness of breath. Onset was 1 hour ago. He said he has left-sided chest pain going from his neck. He also with shortness of breath. He claimed he has been taking his medication. Worse with exertion. Better with rest. Pain is sharp in nature. Pain is 8 out of 10. No diaphoresis. No nausea or vomiting. Similar symptom in the past. Allergies: Coded Allergies: SIMVASTATIN (Verified Allergy, Unknown, 07/03/19) Uncoded Allergies: STATINS (Allergy, Unknown, 08/13/19) COVID-19 Screening Contact w/high risk pt: No Recent Travel to affected area: No Experienced COVID-19 symptoms?: Yes COVID-19 symptoms experienced: Shortness of Breath COVID-19 Testing performed LUCERNE FARMER: No Patient History Past Medical History: see triage record, old chart reviewed, CHF, AFib Past Surgical History: other Pertinent Family History: none Social History: Denies: smoking Immunizations: other Reviewed Nursing Documentation: PMH: Agreed; PSxH: Agreed Nursing Documentation-PMH Hx Hypertension: Yes Hx Cancer: No Hx Gastrointestinal Problems: No Hx Neurological Problems: No Review of Systems Eye: Denies: eye pain, blurred vision ENT: Denies: ear pain, nose congestion, throat swelling Respiratory: Reports: shortness of breath; Denies: cough Cardiovascular: Reports: chest pain; Denies: palpitations Gastrointestinal: Denies: abdominal pain, diarrhea, nausea, vomiting Musculoskeletal: Denies: back pain, joint pain Skin: Denies: rash Neurological: Denies: headache, numbness Endocrine: Denies: increased thirst, increased urine Hematologic/Lymphatic: Denies: easy bruising All Other Systems: negative except mentioned in HPI Physical Exam Vital Signs Date Time Temp Pulse Resp B/P (MAP) Pulse Ox O2 Delivery O2 Flow Rate FiO2 7/25/20 22:02 16 98 Room Air Vitals with tachycardia Sp02 EP Interpretation: reviewed, normal General Appearance: well appearing, no apparent distress, alert Head: normocephalic, atraumatic Eyes: bilateral eye PERRL, bilateral eye EOMI ENT: hearing grossly normal, normal pharynx Neck: full range of motion, supple, no meningismus Respiratory: chest non-tender, rales - Faint rales at base Cardiovascular #1: no murmur, tachycardia, irregularly irregular Gastrointestinal: normal bowel sounds, non tender, no mass, no organomegaly, no bruit, non-distended Musculoskeletal: back normal, normal range of motion, gait/station normal, swelling - Trace edema Psychiatric: mood/affect normal Medical Decision Making Diagnostic Impression: Primary Impression: Chest pain Qualified Codes: R07.9 - Chest pain, unspecified Additional Impressions: Atrial fibrillation, chronic Cardiac left ventricular ejection fraction 10-20 percent ER Course Patient presents with shortness of breath and chest pain. He is ambulating without any difficulty. Oxygenation 100 percent on room air. Patient has been here several times and signed out AMA multiple times in the past. He is noncompliant with treatment. When the nurse went to put an IV in him, he said he only wanted on the right forearm. The veins in his forearms are scarred up from multiple previous hospital visit. He has great veins in his hands and neck but he refused. He said he only wanted in one area and only will give her one chance to do it. I explained to the patient that because his veins are all sclerotic from previous IV stick, we need to get an IV so we can do blood work to check his cardiac status. He adamantly refused to have an IV anywhere else but his forearm. Explained to him that the nurse can try the get an IV in his forearm but it may take several attempts. Because of that, he said he wants to leave. He is competent to leave AGAINST MEDICAL ADVICE. Risk and benefits explained to this patient. He refused to sign the AMA form. EKG Diagnostic Results Rate: tachycardiac Rhythm: other - afib ST Segments: other - NSST changes Rhythm Strip Diag. Results EP Interpretation: yes Rate: 115 Rhythm: no PVC's, other - afib Chest X-Ray Diagnostic Results Chest X-Ray Diagnostic Results : Chest X-Ray Ordered: Yes # of Views/Limited/Complete: 1 View Indication: Shortness of Breath EP Interpretation: Yes Interpretation: no consolidation, no effusion, no pneumothorax, other - CM Impression: Other - CM Electronically Signed by: Sudheer Mahmood MD Last Vital Signs Date Time Temp Pulse Resp B/P (MAP) Pulse Ox O2 Delivery O2 Flow Rate FiO2 12/15/19 22:02 16 98 Room Air Status: unchanged Disposition: AGAINST MEDICAL ADVICE Condition: Stable Sudheer Mahmood MD Dec 15, 2019 22:15
--- NOTE | 2019-12-15 22:15 | NUR ---
ED Nurse Note: Recieved pt in room speaking with MD, pt here with c/o SOB, from home, pt is ambulatory, very agressive speaking and un-cooperative with staff, demanding where to place IV site, pt wants in area of only right back forearm where severe scar tissue noted, MD informed pt that his veins are very good on other places, pt threatning stating he will only allow that area or he will go, made several attempts speaking with pt, pt refuses and states he will leave, pt took off all equipment and left, pt ambulating, no sob or labored breathing noted, nad noted, pt refused to sign AMA form also.
[2019-12-15 22:20] VITALS: BP 111/88
[2019-12-15] MEDS ORDERED: Metoprolol Tartrate 5mg/5ml Inj IVP ONE (22:30)
--- NOTE | 2019-12-15 22:49 | Diagnostic Imaging Report ---
EXAM: XR Chest, 1 View CLINICAL HISTORY: SOB TECHNIQUE: Frontal view of the chest. COMPARISON: 12/13/2019 FINDINGS: Lungs: No consolidation or mass. Pleural space: No acute findings Heart: Unchanged cardiomegaly. Bones/joints: No acute findings. IMPRESSION: Severe cardiomegaly.
== END 2019-12-15 22:20 | disposition left against medical advice (07) ==
LOC: EMR 22:10
DX: R07.9 Chest pain, unspecified (principal); I48.20 Chronic atrial fibrillation, unspecified; R00.0 Tachycardia, unspecified; I10 Essential (primary) hypertension; I50.9 Heart failure, unspecified; Z88.8 Allergy status to other drugs, medicaments and biological substances; I51.7 Cardiomegaly
CPT/HCPCS: 71045; 93005; 96374; 96375; 99284

== ENCOUNTER 2020-02-19 04:58 | Inpatient (IN) | payer MEDICARE, MEDICAID ==
[~2020-02-19] VITALS: Ht 167.6 cm; Wt 87.1 kg
[2020-02-19 05:20] VITALS: BP 136/76
--- NOTE | 2020-02-19 05:20 | NUR ---
ED Nurse Note: Patient walked into ED from home for c/o stabbing like chest pain onset 2-3 hours ago. Patient states the pain radiates to his neck and his head. He appears mildly short of breath with exertion at this time. Patient connected to cardiac cath technologist. Upon connection to cardiac cath technologist, oxygen saturation was 93%. Patient placed on 2L oxygen via NC. He is aaox4, ambulatory with steady gait. Patient denies fever, chills, abdominal pain, n/v.
[2020-02-19] MEDS ORDERED: Aspirin Baby 81mg ORAL ONE (05:30)
--- NOTE | 2020-02-19 05:43 | Emergency Room Report ---
History of Present Illness General Chief Complaint: Chest Pain Source: Patient (Sudheer Mahmood MD) Present Illness HPI This is a 54-year-old male well-known to this ER. He has a history of severe cardiomyopathy with ejection fraction of 10 to 15%. He is also noncompliant wi th his medication. He usually goes to different hospital. He presents with chief complaint of chest pain and shortness of breath. He claimed that he was working at his job when he developed chest pain. This occurred about an hour ago. Worse with exertion. Radiates to his neck. He usually goes to the hospital and demands where his IVs get placed. He also signed out AMA numerous times. He still has cardiac markers on his chest. He said he was just at [employer] today. His pain is 7 out of 10. Nothing made it better. Nothing made it worse. 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 (Sudheer Mahmood MD) Patient History Past Medical History: see triage record, old chart reviewed, HTN, CAD, CHF Past Surgical History: none Pertinent Family History: none Social History: Denies: smoking Immunizations: other Reviewed Nursing Documentation: PMH: Agreed; PSxH: Agreed (Sudheer Mahmood MD) Nursing Documentation-PMH Hx Hypertension: Yes Hx Cancer: No Hx Gastrointestinal Problems: No Hx Neurological Problems: No (Sudheer Mahmood MD) Review of Systems Eye: Denies: eye pain, blurred vision ENT: Denies: ear pain, nose congestion, throat swelling Respiratory: Reports: shortness of breath; Denies: cough Cardiovascular: Reports: chest pain; Denies: palpitations Gastrointestinal: Denies: abdominal pain, diarrhea, nausea, vomiting Musculoskeletal: Denies: back pain, joint pain Skin: Denies: rash Neurological: Denies: headache, numbness Endocrine: Denies: increased thirst, increased urine Hematologic/Lymphatic: Denies: easy bruising All Other Systems: negative except mentioned in HPI (Sudheer Mahmood MD) Physical Exam Vital Signs Date Time Temp Pulse Resp B/P (MAP) Pulse Ox O2 Delivery O2 Flow Rate FiO2 02/19/20 05:08 98.2 84 18 136/76 (96) 96 Room Air 02/19/20 05:20 2.0 Vitals normal Sp02 EP Interpretation: reviewed, normal General Appearance: well appearing, no apparent distress, alert Head: normocephalic, atraumatic Eyes: bilateral eye PERRL, bilateral eye EOMI ENT: hearing grossly normal, normal pharynx Neck: full range of motion, supple, no meningismus Respiratory: chest non-tender, lungs clear, normal breath sounds Cardiovascular #1: regular rate, rhythm, no murmur Gastrointestinal: normal bowel sounds, non tender, no mass, no organomegaly, no bruit, non-distended Musculoskeletal: back normal, normal range of motion, gait/station normal, swelling - 1+ edema Neurologic: alert, oriented x3 Psychiatric: mood/affect normal (Sudheer Mahmood MD) Medical Decision Making Diagnostic Impression: Primary Impression: Chest pain Qualified Codes: R07.9 - Chest pain, unspecified Additional Impressions: Acute on chronic congestive heart failure Qualified Codes: I50.9 - Heart failure, unspecified Cardiac left ventricular ejection fraction 10-20 percent Elevated troponin I level Renal insufficiency ER Course Patient presents with exacerbation of chronic heart failure. He has severe cardiomyopathy and refuses AICD. Troponin is elevated. He has multiple risk factor for ACS. Will admit for further work-up. (Sudheer Mahmood MD) ER Course Please see above note. Minimally elevated troponin. Renal insufficiency. Aspirin already given. Nitro-paste ordered. Patient diuresing and comfortable. Admitted to the hospital. Laboratory Tests Test 02/19/20 05:20 02/19/20 05:45 02/19/20 11:55 02/19/20 18:35 White Blood Count 5.7 K/UL (4.8-10.8) Red Blood Count 3.72 M/UL (4.70-6.10) L Hemoglobin 11.6 G/DL (14.2-18.0) L Hematocrit 35.9 % (42.0-52.0) L Mean Corpuscular Volume 97 FL (80-99) Mean Corpuscular Hemoglobin 31.3 PG (27.0-31.0) H Mean Corpuscular Hemoglobin Concent 32.4 G/DL (32.0-36.0) Red Cell Distribution Width 15.9 % (11.6-14.8) H Platelet Count 102 K/UL (150-450) L Mean Platelet Volume 9.3 FL (6.5-10.1) Neutrophils (%) (Auto) 69.5 % (45.0-75.0) Lymphocytes (%) (Auto) 13.9 % (20.0-45.0) L Monocytes (%) (Auto) 12.4 % (1.0-10.0) H Eosinophils (%) (Auto) 2.1 % (0.0-3.0) Basophils (%) (Auto) 2.2 % (0.0-2.0) H Sodium Level 142 MMOL/L (136-145) Potassium Level 3.8 MMOL/L (3.5-5.1) Chloride Level 103 MMOL/L (98-107) Carbon Dioxide Level 30 MMOL/L (21-32) Anion Gap 9 mmol/L (5-15) Blood Urea Nitrogen 25 mg/dL (7-18) H Creatinine 1.5 MG/DL (0.55-1.30) H Estimated Glomerular Filtration Rate 59.4 mL/min (>60) Glucose Level 95 MG/DL (74-106) Calcium Level 9.0 MG/DL (8.5-10.1) Total Bilirubin 0.9 MG/DL (0.2-1.0) Aspartate Amino Transferase (AST) 38 U/L (15-37) H Alanine Aminotransferase (ALT) 23 U/L (12-78) Alkaline Phosphatase 70 U/L (46-116) Troponin I 0.072 ng/mL (0.000-0.056) 0.054 ng/mL (0.000-0.056) 0.055 ng/mL (0.000-0.056) Pro-B-Type Natriuretic Peptide 4353 pg/mL (0-125) H Total Protein 7.0 G/DL (6.4-8.2) Albumin 4.1 G/DL (3.4-5.0) Globulin 2.9 g/dL Albumin/Globulin Ratio 1.4 (1.0-2.7) Urine Color Yellow Urine Appearance Clear Urine pH 7 (4.5-8.0) Urine Specific [place] 1.010 (1.005-1.035) Urine Protein 3+ (NEGATIVE) H Urine Glucose (UA) Negative (NEGATIVE) Urine Ketones Negative (NEGATIVE) Urine Blood Negative (NEGATIVE) Urine Nitrite Negative (NEGATIVE) Urine Bilirubin Negative (NEGATIVE) Urine Urobilinogen 4 MG/DL (0.0-1.0) H Urine Leukocyte Esterase Negative (NEGATIVE) Urine RBC 0-2 /HPF (0 - 0) H Urine WBC 0-2 /HPF (0 - 0) Urine Squamous Epithelial Cells Few /LPF (NONE/OCC) Urine Bacteria Few /HPF (NONE) Urine Opiates Screen Negative (NEGATIVE) Urine Barbiturates Screen Negative (NEGATIVE) Phencyclidine (PCP) Screen Negative (NEGATIVE) Urine Amphetamines Screen Negative (NEGATIVE) Urine Benzodiazepines Screen Negative (NEGATIVE) Urine Cocaine Screen Negative (NEGATIVE) Urine Marijuana (THC) Screen Negative (NEGATIVE) (Ricci Mccoy MD) EKG Diagnostic Results Rate: normal Rhythm: NSR ST Segments: other - NSST changes ASA given to the pt in ED: Yes (Sudheer Mahmood MD) Rhythm Strip Diag. Results EP Interpretation: yes Rate: 100 Rhythm: NSR, no PVC's, no ectopy (Sudheer Mahmood MD) EP Interpretation: yes Rhythm: no PVC's, no ectopy, other - ST (Ricci Mccoy MD) Chest X-Ray Diagnostic Results Chest X-Ray Diagnostic Results : Chest X-Ray Ordered: Yes # of Views/Limited/Complete: 1 View Indication: Chest Pain EP Interpretation: Yes Interpretation: no consolidation, no pneumothorax, other - severe CM with left effusion Impression: Other - CM Electronically Signed by: Sudheer Mahmood MD (Sudheer Mahmood MD) Last Vital Signs Date Time Temp Pulse Resp B/P (MAP) Pulse Ox O2 Delivery O2 Flow Rate FiO2 02/19/20 05:20 84 18 Room Air 02/19/20 05:20 98.2 136/76 99 2.0 Status: improved (Sudheer Mahmood MD) Last Vital Signs Date Time Temp Pulse Resp B/P (MAP) Pulse Ox O2 Delivery O2 Flow Rate FiO2 02/19/20 16:36 93 02/19/20 16:00 98.7 20 121/69 (86) 97 02/19/20 09:30 Nasal Cannula 2.0 Status: improved (Ricci Mccoy MD) Disposition: ADMITTED INPATIENT Condition: Serious Sudheer Mahmood MD Feb 19, 2020 05:43 Ricci Mccoy MD Feb 19, 2020 06:31
[2020-02-19 05:55] LABS: BASOPHILS % (AUTO) 2.2 % (0.0-2.0); EOSINOPHILS % (AUTO) 2.1 % (0.0-3.0); HEMATOCRIT 35.9 % (42.0-52.0); HEMOGLOBIN 11.6 G/DL (14.2-18.0); LYMPHOCYTES % (AUTO) 13.9 % (20.0-45.0); MEAN CORPUSCULAR VOLUME 97 FL (80-99); MONOCYTES % (AUTO) 12.4 % (1.0-10.0); NEUTROPHILS % (AUTO) 69.5 % (45.0-75.0); PLATELET COUNT 102 K/UL (150-450); RED BLOOD COUNT 3.72 M/UL (4.70-6.10); RED CELL DISTRIBUTION WIDTH 15.9 % (11.6-14.8); WHITE BLOOD COUNT 5.7 K/UL (4.8-10.8)
[2020-02-19 06:16] LABS: APPEARANCE,URINE CLEAR; BILIRUBIN, URINE NEGATIVE (NEGATIVE); GLUCOSE, URINE (UA) NEGATIVE (NEGATIVE); KETONES,URINE NEGATIVE (NEGATIVE); LEUKOCYTE ESTERASE ,URINE NEGATIVE (NEGATIVE); NITRITE,URINE NEGATIVE (NEGATIVE); PH,URINE 7 (4.5-8.0); PROTEIN,URINE 3+ (NEGATIVE); UROBILINOGEN,URINE 4 MG/DL (0.0-1.0)
[2020-02-19 06:18] LABS: COLOR,URINE YELLOW
[2020-02-19 06:19] LABS: CREATININE 1.5 MG/DL (0.55-1.30); POTASSIUM 3.8 MMOL/L (3.5-5.1)
[2020-02-19 06:30] LABS: ALBUMIN 4.1 G/DL (3.4-5.0); ALBUMIN/GLOBULIN RATIO 1.4 (1.0-2.7); BILIRUBIN,TOTAL 0.9 MG/DL (0.2-1.0)
[2020-02-19] MEDS ORDERED: Nitroglycerin 2% oint pkt TOPIC ONE (06:30)
--- NOTE | 2020-02-19 06:35 | NUR ---
ED Nurse Note: Patient is resting in bed, NAD. Safety measures met; will continue to monitor.
--- NOTE | 2020-02-19 06:59 | NUR ---
HAND-OFF: Report given to GENTRY Rivera.
--- NOTE | 2020-02-19 07:04 | NUR ---
ED Nurse Note: Recived report from GENTRY To. Patient is resting in the bed, calm, VSS at this time, O2 sat 100% on 2 L via NC. Patient aware of being admitted.
[2020-02-19 07:07] VITALS: BP 123/78
--- NOTE | 2020-02-19 08:55 | NUR ---
ED Nurse Note: report was given to GENTRY Ruelas
--- NOTE | 2020-02-19 09:09 | NUR ---
ED Nurse Note: Patient was admited to TELE unit due to CHF exaserbation. Patient was tgransfered via girney by ACLS protocol, with all belongings. Patient AAO x4, VSS at this time.
[2020-02-19 09:30] VITALS: BP 119/94
[2020-02-19] MEDS ORDERED: Albuterol/Ipratropium 3ml neb HHN PRN (10:22)
--- NOTE | 2020-02-19 10:23 | Cardiac Electrophysiology PN ---
Subjective Subjective [id number] Objective Last 24 Hour Vital Signs Date Time Temp Pulse Resp B/P (MAP) Pulse Ox O2 Delivery O2 Flow Rate FiO2 02/19/20 09:09 98.2 99 18 123/78 99 Nasal Cannula 2.0 02/19/20 07:07 98.2 99 18 123/78 99 Nasal Cannula 2.0 02/19/20 06:35 137/85 02/19/20 05:20 84 18 Room Air 02/19/20 05:20 98.2 103 18 136/76 99 Nasal Cannula 2.0 02/19/20 05:08 98.2 84 18 136/76 (96) 93 Room Air Intake and Output 02/18/20 02/19/20 19:00 07:00 Intake Total 0 ml Balance 0 ml Intake Oral 0 ml Laboratory Tests Test 02/19/20 05:20 02/19/20 05:45 White Blood Count 5.7 K/UL (4.8-10.8) Red Blood Count 3.72 M/UL (4.70-6.10) L Hemoglobin 11.6 G/DL (14.2-18.0) L Hematocrit 35.9 % (42.0-52.0) L Mean Corpuscular Volume 97 FL (80-99) Mean Corpuscular Hemoglobin 31.3 PG (27.0-31.0) H Mean Corpuscular Hemoglobin Concent 32.4 G/DL (32.0-36.0) Red Cell Distribution Width 15.9 % (11.6-14.8) H Platelet Count 102 K/UL (150-450) L Mean Platelet Volume 9.3 FL (6.5-10.1) Neutrophils (%) (Auto) 69.5 % (45.0-75.0) Lymphocytes (%) (Auto) 13.9 % (20.0-45.0) L Monocytes (%) (Auto) 12.4 % (1.0-10.0) H Eosinophils (%) (Auto) 2.1 % (0.0-3.0) Basophils (%) (Auto) 2.2 % (0.0-2.0) H Sodium Level 142 MMOL/L (136-145) Potassium Level 3.8 MMOL/L (3.5-5.1) Chloride Level 103 MMOL/L (98-107) Carbon Dioxide Level 30 MMOL/L (21-32) Anion Gap 9 mmol/L (5-15) Blood Urea Nitrogen 25 mg/dL (7-18) H Creatinine 1.5 MG/DL (0.55-1.30) H Estimat Glomerular Filtration Rate 59.4 mL/min (>60) Glucose Level 95 MG/DL (74-106) Calcium Level 9.0 MG/DL (8.5-10.1) Total Bilirubin 0.9 MG/DL (0.2-1.0) Aspartate Amino Transf (AST/SGOT) 38 U/L (15-37) H Alanine Aminotransferase (ALT/SGPT) 23 U/L (12-78) Alkaline Phosphatase 70 U/L (46-116) Troponin I 0.072 ng/mL (0.000-0.056) Pro-B-Type Natriuretic Peptide 4353 pg/mL (0-125) H Total Protein 7.0 G/DL (6.4-8.2) Albumin 4.1 G/DL (3.4-5.0) Globulin 2.9 g/dL Albumin/Globulin Ratio 1.4 (1.0-2.7) Urine Color Yellow Urine Appearance Clear Urine pH 7 (4.5-8.0) Urine Specific [place] 1.010 (1.005-1.035) Urine Protein 3+ (NEGATIVE) H Urine Glucose (UA) Negative (NEGATIVE) Urine Ketones Negative (NEGATIVE) Urine Blood Negative (NEGATIVE) Urine Nitrite Negative (NEGATIVE) Urine Bilirubin Negative (NEGATIVE) Urine Urobilinogen 4 MG/DL (0.0-1.0) H Urine Leukocyte Esterase Negative (NEGATIVE) Urine RBC 0-2 /HPF (0 - 0) H Urine WBC 0-2 /HPF (0 - 0) Urine Squamous Epithelial Cells Few /LPF (NONE/OCC) Urine Bacteria Few /HPF (NONE) Urine Opiates Screen Negative (NEGATIVE) Urine Barbiturates Screen Negative (NEGATIVE) Phencyclidine (PCP) Screen Negative (NEGATIVE) Urine Amphetamines Screen Negative (NEGATIVE) Urine Benzodiazepines Screen Negative (NEGATIVE) Urine Cocaine Screen Negative (NEGATIVE) Urine Marijuana (THC) Screen Negative (NEGATIVE) Spenser Kimble MD Feb 19, 2020 10:23
--- NOTE | 2020-02-19 10:41 | NUR ---
NURSE NOTES: Received pt from RING FACER Nicole at 0925,All admission assessments and instructions done and pt verbally confirmed to understand all. pt is awake and alert, pt has NC 2Lit, pt has intact iv access RFA 24G SL. pt is on continues heart monitoring. all belongings confirmed with pt and are with him. Dr Cardoza is aware about admission, all orders noted and carried out. Dr White is aware about consult troponin 0.072 plt 102, orders noted and carried out. All needs attended, bed is locked and is in the lowest position, call light within easy reach. will continue to monitor.
[2020-02-19] MEDS ORDERED: Nitroglycerin Subl 0.4mg tab SL PRN (11:00)
[2020-02-19 12:00] VITALS: BP 112/76
[2020-02-19] MEDS: cefTRIAXone 1 GM in D5W 55 ML IVPB SCH (13:18)
--- NOTE | 2020-02-19 13:31 | Cardiology Report ---
APPROVED REPORT EXAM: Two-dimensional and M-mode echocardiogram with Doppler and color Doppler. INDICATION Congestive Heart Failure M-Mode DIMENSIONS IVSd1.0 (0.7-1.1cm)Left Atrium (MM)5.3 (1.6-4.0cm) LVDd7.3 (3.5-5.6cm)Aortic Root3.4 (2.0-3.7cm) PWd1.1 (0.7-1.1cm)Aortic Cusp Exc.1.9 (1.5-2.0cm) IVSs1.0 cmEPSS2.1 (>1.0cm) LVDs6.3 (2.5-4.0cm) PWs1.1 cm <Conclusion> Severe left ventricular enlargement. Severe global left ventricular hypokinesis septum appear akinetic Left ventricular ejection fraction estimated to be 20-25%. Increased E point-interventricular septal separation c/w left ventricular dysfunction. No evidence of left ventricular hypertrophy. Small to moderate posterior pericardial effusion. Moderate left atrial enlargement. Mild right atrial enlargement. Right ventricular chamber size is within normal limits. Focal aortic valve sclerosis with adequate cusp excursion. Thickened mitral valve leaflets with normal excursion. Mitral annulus and aortic root calcification. Normal pulmonic valve structure. Normal tricuspid valve structure. IVC dilated at 3.3 cm and non-collapsing with respiration suggestive of RA pressure at least 20 mmHg. A color flow and spectral Doppler study was performed and revealed: No aortic insufficiency. Mild to moderate mitral regurgitation. Mitral inflow velocities indicates possible pseudo normalization pattern implying moderately elevated left atrial pressure (Grade II ). Severe tricuspid regurgitation. Tricuspid systolic velocities suggests peak right ventricular systolic pressure of 68 mmHg, consistent with severe pulmonary hypertension. Mild pulmonic regurgitation present.
--- NOTE | 2020-02-19 13:43 | Cardiology Report ---
APPROVED REPORT EKG Measurement Heart [id number] CT [id number] <Conclusion> Sinus tachycardia with premature atrial complexes Rightward axis Anterior infarct, age undetermined Abnormal ECG
--- NOTE | 2020-02-19 15:12 | Diagnostic Imaging Report ---
Indication: Reason For Exam: SOB Technique: Single AP view of the chest. Comparison: Chest radiograph dated 04/11/2020 Findings: The cardiomediastinal silhouette is unchanged, with persistent moderate to severe cardiomegaly. There is pulmonary vascular congestion. Likely retrocardiac streaky airspace opacity. Possible small left pleural effusion. No pneumothorax. No acute osseous abnormality. IMPRESSION: Moderate to severe clinically, which obscures evaluation of the left lung base. Suspected left basilar streaky airspace opacity and small left pleural effusion.
--- NOTE | 2020-02-19 15:45 | Consultation ---
DATE OF CONSULTATION: 02/19/2020 CARDIOLOGY CONSULTATION CONSULTING PHYSICIAN: Spenser Kimble M.D. REFERRING PHYSICIAN: Jimenez Cardoza M.D. REASON FOR CONSULTATION: Management of congestive heart failure. HISTORY OF PRESENT ILLNESS: The patient is a 54-year-old gentleman who I am quite familiar with from previous admission. The patient has history of severe nonischemic dilated cardiomyopathy with ejection fraction of 10% to 15%, who was supposed to get a defibrillator on the previous admission in November. However, he refused and signed out against medical advice the last minute. The patient goes to different hospital and has signed out AMA many times. The patient presented to the emergency room with increasing shortness of breath, lower extremity edema, as well as scrotal edema. He stated that he was working at his job and he suddenly developed chest pain an hour prior to the admission that was worse with exertion. The pain radiated to his neck. He stated that he was just at [employer] today and he cardiac monitors on his chest. The patient was admitted and a cardiology consultation was obtained for further evaluation. REVIEW OF SYSTEMS: Negative other than what was mentioned in history of present illness. PAST MEDICAL HISTORY: As mentioned above. FAMILY HISTORY: Noncontributory. SOCIAL HISTORY: He denies any drugs, smoking, or drinking alcohol. PHYSICAL EXAMINATION: VITAL SIGNS: Blood pressure of 122/78, pulse is 90, respirations 18, and temperature 98. HEAD AND NECK: Positive JVD. LUNGS: Decreased breath sounds. CARDIOVASCULAR: Regular S1 and S2 with no gallop. ABDOMEN: Soft. EXTREMITIES: 2+ pitting edema and also scrotal edema. LABORATORY AND DIAGNOSTIC DATA: Labs show white count of 5.7, hemoglobin 11.6, hematocrit 35.9, and platelet count of 102. Sodium is 142, potassium 3.8, BUN of 25, creatinine 1.5, random glucose of 95. Troponin 0.072. ASSESSMENT AND PLAN: 1. Elevated troponin. This could be due to renal failure. His creatinine is 1.5. We completely ruled out [place] protocol and we will repeat the EKG and echocardiogram. His EKG from today showed sinus tachycardia at 108 with PACs and lateral T-wave inversion. We will continue on Coreg and add aspirin to his medical regimen. 2. Exacerbation of congestive heart failure in this patient with nonischemic cardiomyopathy, EF of 10% to 15%. Resume Coreg, lisinopril, Lasix, and Aldactone. We will watch the renal function. 3. Recurrent long runs of ventricular tachycardia up to 24 beats on the previous admission. We will discuss the need for ICD with the patient again. The last time he agreed, but then refused at last minute. 4. History of atrial flutter, currently remains in sinus rhythm. 5. History of hypertension. Maximize heart failure therapy. 6. Morbid obesity. 7. Renal failure, creatinine 1.5. 8. History of Graves disease. Thank you very much for allowing me to participate in the care of this patient. Please do not hesitate to contact me for any questions regarding my evaluation. Spenser Kimble M.D. DR: MONICA JOB#: [id number] CC:
[2020-02-19 16:00] VITALS: BP 121/69
--- NOTE | 2020-02-19 16:42 | Diagnostic Imaging Report ---
Indication:Leg pain and swelling Technique: Grayscale and duplex Doppler imaging of the veins in both lower extremities performed in real time utilizing compression and augmentation. Comparison: Lower extremity venous Doppler study dated 10/16/2019 Findings: Duplex Doppler interrogation of the veins in both lower extremity is performed from the common femoral vein to the popliteal vein. Normal venous compressibility demonstrated throughout. No thrombus identified. Waveform analysis shows good respiratory phasicity and augmentation. IMPRESSION: No evidence of deep venous thrombosis involving the lower extremities.
[2020-02-19] MEDS: Cyclobenzaprine 10mg Tab ORAL SCH (17:46)
[2020-02-19] MEDS: Morphine Sulfate 2mg/ml Inj(IV/IM USE ONLY) IVP PRN ×2 (17:52→23:32)
--- NOTE | 2020-02-19 19:32 | NUR ---
NURSE HAND-OFF REPORT: Important Events on Shift: Patient Status: Diet: Pending Orders: Pending Results/Labs: Pending MD notification: Latest Vital Signs: Temperature 98.7 , Pulse 93 , B/P 121 /69 , Respiratory Rate 20 , O2 SAT 97 , Nasal Cannula, O2 Flow Rate 2.0 . Vital Sign Comment: EKG Rhythm: Sinus Rhythm Rhythm change?: N MD Notified?: Y Maxi Kimble MD Response: No New Orders Received Latest Farooq Fall Score: 35 Fall Risk: Medium Risk Safety Measures: Call light Within Reach, Bed Alarm Zone 1, Side Rails Side Rails x3, Bed position Low and Locked. Fall Precautions: Door Sign Patient Fall Education Report given to . pt is awake and alert, no stress noted. Endorsed plan of care, endorsed to monitor HR and F/U ECG.
--- NOTE | 2020-02-19 19:35 | NUR ---
NURSE NOTES: Pt received from GENTRY Schrader. Pt is sitting bedside comfortably. Pt is A/Ox4 and ambulatory. Pt has RFA 24 SL patent with skin dry and intact. Pt is on cardiac monitoring SR and asymptomatic. Pt is breathing unlabored on RA. Pt has swelling on bilateral lower extremities and denies pain. Bed is locked in lowest position with call light within reach. Will continue to monitor.
[2020-02-19 20:00] VITALS: BP 105/72
[2020-02-19] MEDS: Wixela 250/50 Inhaler - 60 dose INH SCH (21:08)
[2020-02-20] VITALS: BP 97/67
[2020-02-20 04:00] VITALS: BP 117/71
[2020-02-20 04:03] LABS: CHOLESTEROL 155 MG/DL (< 200); HDL CHOLESTEROL 57 MG/DL (40-60); TRIGLYCERIDES 25 MG/DL (30-150)
--- NOTE | 2020-02-20 06:51 | NUR ---
NURSE HAND-OFF REPORT: Important Events on Shift:Pt received Morphine PRN x1. Patient Status: Stable Diet: Low Sodium Pending Results/Labs:AM Labs Latest Vital Signs: Temperature 98.5 , Pulse 85 , B/P 117 /71 , Respiratory Rate 16 , O2 SAT 100 , Nasal Cannula, O2 Flow Rate 4.0 . Vital Sign Comment: VSS EKG Rhythm: Sinus Rhythm Rhythm change?: N Notified?: Y -Dr Lamin ADORNO Response: No New Orders Received Latest Farooq Fall Score: 35 Fall Risk: Medium Risk Safety Measures: Call light Within Reach, Bed Alarm Zone 1, Side Rails Side Rails x2, Bed position Low and Locked. Fall Precautions: Yellow Socks Report given to GENTRY Schrader.
--- NOTE | 2020-02-20 07:30 | NUR ---
NURSE NOTES: Received pt from GENTRY Tavarez, pt is awake and alert, pt has NC 2Lit, pt has intact iv access RFA 24G SL. pt is on continues heart monitoring. pt is eating breakfast by observation. All needs attended, bed is locked and is in the lowest position, call light within easy reach. will continue to monitor.
[2020-02-20 08:00] VITALS: BP 107/67
--- NOTE | 2020-02-20 08:54 | General Progress Note ---
Subjective Allergies: Coded Allergies: SIMVASTATIN (Verified Allergy, Unknown, 07/03/19) Uncoded Allergies: STATINS (Allergy, Unknown, 08/13/19) Subjective complain sob rec cp, neck pain cardiac wp in progress Objective Last 24 Hour Vital Signs Date Time Temp Pulse Resp B/P (MAP) Pulse Ox O2 Delivery O2 Flow Rate FiO2 02/20/20 08:21 98 Nasal Cannula 4.0 36 02/20/20 04:00 93 02/20/20 04:00 98.5 85 16 117/71 (86) 100 02/20/20 00:00 98.1 95 18 97/67 (77) 100 02/20/20 00:00 96 02/19/20 23:27 98 Nasal Cannula 4.0 36 02/19/20 21:46 90 105/72 02/19/20 21:00 Nasal Cannula 4.0 02/19/20 20:00 88 02/19/20 20:00 97.5 90 16 105/72 (83) 100 02/19/20 16:36 93 02/19/20 16:00 98.7 67 20 121/69 (86) 97 02/19/20 15:28 106 02/19/20 12:00 97.9 89 18 112/76 (88) 95 02/19/20 11:41 71 02/19/20 10:13 95 02/19/20 09:30 Nasal Cannula 2.0 02/19/20 09:30 98.4 80 20 119/94 (102) 94 02/19/20 09:09 98.2 99 18 123/78 99 Nasal Cannula 2.0 Intake and Output 02/19/20 02/20/20 18:59 06:59 Intake Total 195 ml 990 ml Output Total 1200 ml 1000 ml Balance -1005 ml -10 ml Intake Oral 140 ml 960 ml IV Total 55 ml 30 ml Output Urine Total 1200 ml 1000 ml # Voids 3 3 # Bowel Movements 1 Laboratory Tests 02/19/20 11:55: Troponin I 0.054 02/19/20 18:35: Troponin I 0.055 02/20/20 03:15: Troponin I 0.056, Pro-B-Type Natriuretic Peptide 2776H, Triglycerides Level 25L, Cholesterol Level 155, LDL Cholesterol 84, HDL Cholesterol 57, Cholesterol/HDL Ratio 2.7L, Thyroid Stimulating Hormone (TSH) 3.515, Free Thyroxine 1.14 Height (Feet): 5 Height (Inches): 6.00 Weight (Pounds): 230 General Appearance: alert, moderate distress, morbidly obese, alert oriented x3 EENT: PERRL/EOMI Neck: muscle spasm, pain on motion, stiff neck Cardiovascular: regular rhythm Respiratory/Chest: expiratory wheezing Abdomen: non tender, soft Pelvis: normal external exam Genitourinary/Rectal: normal genital exam Extremities: swelling Edema: 2+ Leg (L), 2+ Pedal (L), 2+ Pedal (R), 2+ Generalized Edema: severe edema Neurologic: car shagger II-XII grossly normal Assessment/Plan Status: progressing Assessment/Plan: chf acs cm muscle spasm chronic pain neck and back obesity recomended icd cont medical tx add ambien for insomania fluid and salt restriction dw charge nurse Jimenez Cardoza MD Feb 20, 2020 08:54
[2020-02-20] MEDS: Wixela 250/50 Inhaler - 60 dose INH SCH ×2 (10:01→21:03)
[2020-02-20] MEDS: Cyclobenzaprine 10mg Tab ORAL SCH ×2 (10:07→18:00)
[2020-02-20] MEDS: Aspirin EC 81mg tab ORAL SCH (10:07)
[2020-02-20] MEDS: Allopurinol 100mg Tab ORAL SCH (10:08)
[2020-02-20] MEDS: metOLazone 2.5 MG TAB ORAL SCH (10:08)
[2020-02-20] MEDS: Lisinopril 2.5mg tab ORAL SCH (10:08)
[2020-02-20] MEDS: Spironolactone 25mg tab ORAL SCH (10:08)
--- NOTE | 2020-02-20 10:30 | NUR ---
NURSE NOTES: iv access was D/C by pt and he refuses now and asking to do later. Dr Cardoza is aware. will continue to monitor.
[2020-02-20 12:00] VITALS: BP 111/69
--- NOTE | 2020-02-20 13:55 | NUR ---
NURSE NOTES: still no iv patient access specialist couldn't make iv access, ABX on hold till make iv acces. will continue to monitor.
[2020-02-20] MEDS: cefTRIAXone 1 GM in D5W 55 ML IVPB SCH (14:33)
[2020-02-20] MEDS: Morphine Sulfate 2mg/ml Inj(IV/IM USE ONLY) IVP PRN ×2 (14:35→20:59)
--- NOTE | 2020-02-20 15:28 | Cardiac Electrophysiology PN ---
Assessment/Plan Assessment/Plan 1. Elevated troponin. Likely due to renal failure. Ruled out [place] protocol and we will repeat the EKG and echocardiogram. His EKG from today showed sinus tachycardia at 108 with PACs and lateral T-wave inversion. We will continue on Coreg and aspirin 2. Exacerbation of congestive heart failure in this patient with nonischemic cardiomyopathy, EF of 10% to 15%. Resume Coreg, lisinopril, Lasix, and Aldactone. We will watch the renal function. 3. Recurrent long runs of ventricular tachycardia up to 24 beats on the previous admission. Had 8 and 13 beats today again.Discussed the need for ICD with the patient again. He wants to think bout it. Last admission he agreed, but then refused at last minute. 4. History of atrial flutter, currently remains in sinus rhythm. 5. History of hypertension. Maximize heart failure therapy. 6. Morbid obesity. 7. Renal failure, creatinine 1.5. 8. History of Graves disease. Subjective Subjective Had 13 beats of VT again. On iv Lasix. Objective Last 24 Hour Vital Signs Date Time Temp Pulse Resp B/P (MAP) Pulse Ox O2 Delivery O2 Flow Rate FiO2 02/20/20 15:17 98 Nasal Cannula 4.0 36 02/20/20 12:00 98.0 84 18 111/69 (83) 96 02/20/20 11:41 90 02/20/20 10:08 107/67 02/20/20 10:07 80 107/67 02/20/20 09:00 Nasal Cannula 4.0 02/20/20 08:21 98 Nasal Cannula 4.0 36 02/20/20 08:00 98.1 80 19 107/67 (80) 95 02/20/20 08:00 92 02/20/20 04:00 93 02/20/20 04:00 98.5 85 16 117/71 (86) 100 02/20/20 00:00 98.1 95 18 97/67 (77) 100 02/20/20 00:00 96 02/19/20 23:27 98 Nasal Cannula 4.0 36 02/19/20 21:46 90 105/72 02/19/20 21:00 Nasal Cannula 4.0 02/19/20 20:00 88 02/19/20 20:00 97.5 90 16 105/72 (83) 100 02/19/20 16:36 93 02/19/20 16:00 98.7 67 20 121/69 (86) 97 02/19/20 15:28 106 Intake and Output 02/19/20 02/20/20 19:00 07:00 Intake Total 195 ml 990 ml Output Total 1200 ml 1000 ml Balance -1005 ml -10 ml Intake Oral 140 ml 960 ml IV Total 55 ml 30 ml Output Urine Total 1200 ml 1000 ml # Voids 3 3 # Bowel Movements 1 Laboratory Tests Test 02/19/20 18:35 02/20/20 03:15 Troponin I 0.055 ng/mL (0.000-0.056) 0.056 ng/mL (0.000-0.056) Pro-B-Type Natriuretic Peptide 2776 pg/mL (0-125) H Triglycerides Level 25 MG/DL (30-150) L Cholesterol Level 155 MG/DL (< 200) LDL Cholesterol 84 mg/dL (<100) HDL Cholesterol 57 MG/DL (40-60) Cholesterol/HDL Ratio 2.7 (3.3-4.4) L Thyroid Stimulating Hormone (TSH) 3.515 uiU/mL (0.358-3.740) Free Thyroxine 1.14 NG/DL (0.76-1.46) Objective HEAD AND NECK: Positive JVD. LUNGS: Decreased breath sounds. CARDIOVASCULAR: Regular S1 and S2 with no gallop. ABDOMEN: Soft. EXTREMITIES: 2+ pitting edema and scrotal edema. Spenser Kimble MD Feb 20, 2020 15:28
[2020-02-20] MEDS ORDERED: Zolpidem 5mg tab ORAL PRN (15:30)
[2020-02-20 16:03] VITALS: BP 96/57
--- NOTE | 2020-02-20 19:32 | NUR ---
NURSE HAND-OFF REPORT: Important Events on Shift: Patient Status: Diet: Pending Orders: Pending Results/Labs: Pending MD notification: Latest Vital Signs: Temperature 97.9 , Pulse 88 , B/P 96 /57 , Respiratory Rate 16 , O2 SAT 100 , Nasal Cannula, O2 Flow Rate 4.0 . Vital Sign Comment: EKG Rhythm: Sinus Rhythm Rhythm change?: N MD Notified?: Y -Dr Lamin ADORNO Response: No New Orders Received Latest Farooq Fall Score: 35 Fall Risk: Medium Risk Safety Measures: Call light Within Reach, Bed Alarm Zone 1, Side Rails Side Rails x2, Bed position Low and Locked. Fall Precautions: Yellow Socks Report given to . pt is awake and stable, no stress noted. Endorsed plan of care.
--- NOTE | 2020-02-20 19:50 | NUR ---
NURSE NOTES: Received pt from GENTRY Schrader. Pt awake, alert, and asking to be in a single room. Bed in lowest position. Call light within reach. will continue to monitor.
[2020-02-20 20:00] VITALS: BP 95/61
[2020-02-21] VITALS (7 sets, daily range): BP systolic 92–189; BP diastolic 60–164
[2020-02-21 07:21] LABS: HEMATOCRIT 34.2 % (42.0-52.0); HEMOGLOBIN 10.7 G/DL (14.2-18.0); MEAN CORPUSCULAR VOLUME 98 FL (80-99); PLATELET COUNT 81 K/UL (150-450); RED BLOOD COUNT 3.48 M/UL (4.70-6.10); RED CELL DISTRIBUTION WIDTH 15.5 % (11.6-14.8)
--- NOTE | 2020-02-21 07:34 | NUR ---
NURSE HAND-OFF REPORT: Important Events on Shift: Pt had a disagreement with patient in bed 2. Security was called. Patient Status: stable Diet: 2gm sodium Pending Orders: y Pending Results/Labs:y Pending notification:y Latest Vital Signs: Temperature 98.6 , Pulse 113 , B/P 99 /60 , Respiratory Rate 20 , O2 SAT 95 , Nasal Cannula, O2 Flow Rate 4.0 . Vital Sign Comment: stable EKG Rhythm: 8 beats v-tach Rhythm change?: Ismael ADORNO Notified?: Lakesha KAUFFMAN MD Response: Message left await call Latest Farooq Fall Score: 35 Fall Risk: Medium Risk Safety Measures: Call light Within Reach, Bed Alarm Zone 1, Side Rails Side Rails x2, Bed position Low and Locked. Fall Precautions: Yellow Socks Report given to GENTRY Schrader.
--- NOTE | 2020-02-21 07:35 | NUR ---
NURSE NOTES: Received pt from GENTRY Cruz, pt is awake and alert, pt has NC 2Lit, pt has intact iv access RIMMA 22G SL. pt is on continues heart monitoring. pt is eating breakfast by observation. All needs attended, bed is locked and is in the lowest position, call light within easy reach. will continue to monitor.
[2020-02-21 07:41] LABS: CALCIUM 8.7 MG/DL (8.5-10.1); CREATININE 1.5 MG/DL (0.55-1.30); POTASSIUM 4.2 MMOL/L (3.5-5.1)
[2020-02-21] MEDS: Lisinopril 2.5mg tab ORAL SCH (09:00)
[2020-02-21] MEDS: Wixela 250/50 Inhaler - 60 dose INH SCH ×2 (09:04→21:01)
[2020-02-21] MEDS: metOLazone 2.5 MG TAB ORAL SCH (09:28)
[2020-02-21] MEDS: Aspirin EC 81mg tab ORAL SCH (09:28)
[2020-02-21] MEDS: Spironolactone 25mg tab ORAL SCH (09:29)
[2020-02-21] MEDS: Allopurinol 100mg Tab ORAL SCH (09:29)
[2020-02-21] MEDS: Cyclobenzaprine 10mg Tab ORAL SCH ×2 (09:29→17:48)
--- NOTE | 2020-02-21 10:20 | NUR ---
NURSE NOTES: pt pulled out iv access again today, Dr Cardoza visited pt and ordered no need iv access and ordered to change Lasix iv to po, noted and carried out. will continue to monitor.
--- NOTE | 2020-02-21 10:46 | General Progress Note ---
Subjective Allergies: Coded Allergies: SIMVASTATIN (Verified Allergy, Unknown, 07/03/19) Uncoded Allergies: STATINS (Allergy, Unknown, 08/13/19) Subjective sleeping having tremors pulled iv line Objective Last 24 Hour Vital Signs Date Time Temp Pulse Resp B/P (MAP) Pulse Ox O2 Delivery O2 Flow Rate FiO2 02/21/20 09:00 98/68 02/21/20 09:00 99 98/68 02/21/20 08:24 97 Nasal Cannula 4.0 36 02/21/20 08:00 99.0 99 20 98/68 (78) 97 02/21/20 07:55 96 02/21/20 06:31 113 02/21/20 06:31 95 99/60 (73) 02/21/20 04:00 70 20 189/164 (172) 95 02/21/20 04:00 96 02/21/20 00:17 111 02/21/20 00:00 94 02/21/20 00:00 98.6 95 20 110/75 (87) 100 02/20/20 21:00 Nasal Cannula 4.0 02/20/20 21:00 93 95/61 02/20/20 20:00 93 02/20/20 20:00 97.7 93 16 95/61 (72) 100 02/20/20 16:03 97.9 88 16 96/57 (70) 100 02/20/20 15:25 87 02/20/20 15:17 98 Nasal Cannula 4.0 36 02/20/20 12:00 98.0 84 18 111/69 (83) 96 02/20/20 11:41 90 Intake and Output 02/20/20 02/21/20 19:00 07:00 Intake Total 415 ml Output Total 1200 ml Balance -785 ml Intake Oral 360 ml IV Total 55 ml Output Urine Total 1200 ml # Voids 3 # Bowel Movements 1 Laboratory Tests 02/21/20 06:09: White Blood Count 5.0, Red Blood Count 3.48L, Hemoglobin 10.7L, Hematocrit 34.2L , Mean Corpuscular Volume 98, Mean Corpuscular Hemoglobin 30.8, Mean Corpuscular Hemoglobin Concent 31.4L, Red Cell Distribution Width 15.5H, Platelet Count 81L, Mean Platelet Volume 7.9, Neutrophils (%) (Auto) , Lymphocytes (%) (Auto) , Monocytes (%) (Auto) , Eosinophils (%) (Auto) , Basophils (%) (Auto) , Differential Total Cells Counted 100, Neutrophils % (Manual) 71, Lymphocytes % (Manual) 13L, Monocytes % (Manual) 13H, Eosinophils % (Manual) 2, Basophils % (Manual) 1, Band Neutrophils 0, Platelet Estimate DecreasedL, Platelet Morphology Normal, Hypochromasia 1+, Anisocytosis 1+, Sodium Level 140, Potassium Level 4.2, Chloride Level 100, Carbon Dioxide Level 35H, Anion Gap 5, Blood Urea Nitrogen 25H, Creatinine 1.5H, Estimat Glomerular Filtration Rate 59.4, Glucose Level 94, Calcium Level 8.7, Pro-B-Type Natriuretic Peptide 2172H Height (Feet): 5 Height (Inches): 6.00 Weight (Pounds): 230 General Appearance: combative, obese Neck: supple Cardiovascular: regular rhythm Respiratory/Chest: expiratory wheezing Abdomen: soft Extremities: swelling Edema: mild edema Assessment/Plan Status: progressing Assessment/Plan: chf acs cm muscle spasm chronic pain neck and back obesity recomended icd cont medical tx add ambien for insomania fluid and salt restriction picc line menwhile change lasix to po waiting for cardio styles Jimenez Cardoza MD Feb 21, 2020 10:46
--- NOTE | 2020-02-21 12:40 | NUR ---
CASE MANAGEMENT:REVIEW 54 YR OLD MALE WALKED IN TO ER CC; SOB AND CHEST PAIN SI: AC/CHR CHF. RENAL INSUFFICIENCY. ELEVATED TROPONIN 98.2 84 18 136/76 93% ON RA PLT-102 BUN+25 CR+1.5 TROPONIN(+) 0.072 BNP+4353 IS: PLACED ON 2L/NC ASA PO IV LASIX NITRO 1" CHEST XRAY : TO TELEMETRY UNIT
--- NOTE | 2020-02-21 12:51 | NUR ---
CASE MANAGEMENT:REVIEW 02/21/20 SI: CHF W/EF 15-20% . ACS 13 BEATS OF V-TACH 99.0 99 20 98/68 97% ON 4L/NC H/H-10.7/34.2 PLT-81 BUN+25 CR+1.5 BNP+2172 IS: LASIX PO Q12 AMOXIL PO Q8HRS ALDACTONE PO QD PREDNISONE PO QD ZAROXOLYN PO QD LISINOPRIL PO QD ASA PO QD COREG PO Q12 ADVAIR INH Q12 : TELEMETRY PLAN: [employer] IS RECOMMENDING ICD PLACEMENT ~ PATIENT WANTS TO THINK ABOUT IT
--- NOTE | 2020-02-21 13:02 | NUR ---
INSURANCE FAXED CLINICALS/REVIEW TO [facility]REVIEW FAXED TO [facility] [phone]
--- NOTE | 2020-02-21 15:14 | Cardiac Electrophysiology PN ---
Assessment/Plan Assessment/Plan 1. Elevated troponin. Likely due to renal failure. Ruled out [place] protocol and we will repeat the EKG and echocardiogram. His EKG from today showed sinus tachycardia at 108 with PACs and lateral T-wave inversion. We will continue on Coreg and aspirin 2. Exacerbation of CHF in this patient with nonischemic cardiomyopathy, EF of 10% to 15%. On Coreg, lisinopril, Lasix, and Aldactone. We will watch the renal function. 3. Recurrent long runs of ventricular tachycardia up to 24 beats on the previous admission. Had 8 and 13 beats today .Discussed the need for ICD with the patient again. He wants to think bout it. Last admission he agreed, but then refused at last minute. 4. History of atrial flutter, currently remains in sinus rhythm. 5. History of hypertension. Maximize heart failure therapy. 6. Morbid obesity. 7. Renal failure, creatinine 1.5. 8. History of Graves disease. Subjective Subjective Had 13 beats of VT again yesterday. Had SVT also. On iv Lasix. Objective Last 24 Hour Vital Signs Date Time Temp Pulse Resp B/P (MAP) Pulse Ox O2 Delivery O2 Flow Rate FiO2 02/21/20 12:00 98.1 65 20 104/73 (83) 100 02/21/20 11:56 92 02/21/20 09:00 98/68 02/21/20 09:00 99 98/68 02/21/20 09:00 Nasal Cannula 4.0 02/21/20 08:24 97 Nasal Cannula 4.0 36 02/21/20 08:00 99.0 99 20 98/68 (78) 97 02/21/20 07:55 96 02/21/20 06:31 113 02/21/20 06:31 95 99/60 (73) 02/21/20 04:00 70 20 189/164 (172) 95 02/21/20 04:00 96 02/21/20 00:17 111 02/21/20 00:00 94 02/21/20 00:00 98.6 95 20 110/75 (87) 100 02/20/20 21:00 Nasal Cannula 4.0 02/20/20 21:00 93 95/61 02/20/20 20:00 93 02/20/20 20:00 97.7 93 16 95/61 (72) 100 02/20/20 16:03 97.9 88 16 96/57 (70) 100 02/20/20 15:25 87 02/20/20 15:17 98 Nasal Cannula 4.0 36 Intake and Output 02/20/20 02/21/20 19:00 07:00 Intake Total 415 ml Output Total 1200 ml Balance -785 ml Intake Oral 360 ml IV Total 55 ml Output Urine Total 1200 ml # Voids 3 # Bowel Movements 1 Laboratory Tests Test 02/21/20 06:09 White Blood Count 5.0 K/UL (4.8-10.8) Red Blood Count 3.48 M/UL (4.70-6.10) L Hemoglobin 10.7 G/DL (14.2-18.0) L Hematocrit 34.2 % (42.0-52.0) L Mean Corpuscular Volume 98 FL (80-99) Mean Corpuscular Hemoglobin 30.8 PG (27.0-31.0) Mean Corpuscular Hemoglobin Concent 31.4 G/DL (32.0-36.0) L Red Cell Distribution Width 15.5 % (11.6-14.8) H Platelet Count 81 K/UL (150-450) L Mean Platelet Volume 7.9 FL (6.5-10.1) Neutrophils (%) (Auto) % (45.0-75.0) Lymphocytes (%) (Auto) % (20.0-45.0) Monocytes (%) (Auto) % (1.0-10.0) Eosinophils (%) (Auto) % (0.0-3.0) Basophils (%) (Auto) % (0.0-2.0) Differential Total Cells Counted 100 Neutrophils % (Manual) 71 % (45-75) Lymphocytes % (Manual) 13 % (20-45) L Monocytes % (Manual) 13 % (1-10) H Eosinophils % (Manual) 2 % (0-3) Basophils % (Manual) 1 % (0-2) Band Neutrophils 0 % (0-8) Platelet Estimate Decreased L Platelet Morphology Normal Hypochromasia 1+ Anisocytosis 1+ Sodium Level 140 MMOL/L (136-145) Potassium Level 4.2 MMOL/L (3.5-5.1) Chloride Level 100 MMOL/L (98-107) Carbon Dioxide Level 35 MMOL/L (21-32) H Anion Gap 5 mmol/L (5-15) Blood Urea Nitrogen 25 mg/dL (7-18) H Creatinine 1.5 MG/DL (0.55-1.30) H Estimat Glomerular Filtration Rate 59.4 mL/min (>60) Glucose Level 94 MG/DL (74-106) Calcium Level 8.7 MG/DL (8.5-10.1) Pro-B-Type Natriuretic Peptide 2172 pg/mL (0-125) H Objective HEAD AND NECK: Positive JVD. LUNGS: Decreased breath sounds. CARDIOVASCULAR: Regular S1 and S2 with no gallop. ABDOMEN: Soft. EXTREMITIES: 2+ pitting edema and scrotal edema. Spenser Kimble MD Feb 21, 2020 15:13
--- NOTE | 2020-02-21 19:20 | NUR ---
NURSE HAND-OFF REPORT: Important Events on Shift: Patient Status: Diet: Pending Orders: Pending Results/Labs: Pending MD notification: Latest Vital Signs: Temperature 98.0 , Pulse 74 , B/P 111 /69 , Respiratory Rate 20 , O2 SAT 99 , Nasal Cannula, O2 Flow Rate 4.0 . Vital Sign Comment: EKG Rhythm: Sinus Rhythm Rhythm change?: N Notified?: Lakesha KAUFFMAN MD Response: Message left await call Latest Farooq Fall Score: 35 Fall Risk: Medium Risk Safety Measures: Call light Within Reach, Bed Alarm Zone 1, Side Rails Side Rails x2, Bed position Low and Locked. Fall Precautions: Yellow Socks Report given to . pt is awake and stable, no stress noted. Enodrsed plan of care. Endorsed to monitor HR.
--- NOTE | 2020-02-21 20:44 | NUR ---
NURSE NOTES: Received patient report from GENTRY Schrader. Patient shows no signs of distress or pain at the time. Patient is AO x4. Patient is on 4L nasal canula and saturating at 100% with no signs of respiratory distress noted. Patient has no IV site. Per dayshift nurse, patient continues to pull it off and is extremely hard stick. MD aware. Bed is on the lowest position, call light is within reach, side rails up x3. Will continue to monitor.
[2020-02-21] MEDS: Furosemide 40mg tab ORAL SCH (21:39)
[2020-02-22] VITALS: BP 99/73
--- NOTE | 2020-02-22 00:30 | Consultation ---
DATE OF CONSULTATION: 02/22/2020 PSYCHIATRIC EVALUATION CONSULTING PHYSICIAN: Efren Kemp MD. HISTORY OF PRESENT ILLNESS: This is a 54-year-old male with a history of multiple medical issues including congestive heart failure, hypertension, and anxiety disorder who has been admitted to the hospital for medical stabilization. Patient has a history of noncompliance. Patient hospital AMA. He is here now for medical stabilization. He is presenting with irritable mood, anxiety, and poor insight. PAST PSYCHIATRIC HISTORY: Significant for anxiety disorder, depression. Not on psychotropic medication. SUBSTANCE ABUSE HISTORY: No known history of illicit drug use or alcohol. MENTAL STATUS EXAMINATION: Patient is alert, oriented times self, place, situation. Mood is anxious. Affect is blunted, congruent with mood. Thought process is concrete. Thought content, there is no suicidal or homicidal ideation. Cognition is impaired. Insight and judgment impaired. ASSESSMENT: [place] I Anxiety disorder. [place] II Deferred. [place] III As above. [place] IV Low. [place] V 20. PLAN: 1. We will start patient on Ativan p.r.n. 2. SSRIs. 3. Provide the patient with reality orientation and supportive therapy. Efren Kemp M.D. DR: RAJWINDER JOB#: [id number] CC:
--- NOTE | 2020-02-22 02:10 | NUR ---
NURSE NOTES: Patient shows no signs of distress. He is sitting at the edge of bed. I asked him if he wants me to help him get into bed but he does not want to.
[2020-02-22 04:00] VITALS: BP 103/74
--- NOTE | 2020-02-22 06:48 | NUR ---
NURSE NOTES: Patient had 5 beats of V tach. Patient is asymptomatic. Dr. Kimble made aware. Awaiting call back.
--- NOTE | 2020-02-22 07:45 | NUR ---
NURSE HAND-OFF REPORT: Important Events on Shift:[5 beats of V tach. Dr. Kimble aware ] Patient Status: [Full code] Diet: [2 gram sodium] Pending Orders: [NA] Pending Results/Labs:[NA] Pending MD notification:[NA] Latest Vital Signs: Temperature 97.9 , Pulse 93 , B/P 103 /74 , Respiratory Rate 22 , O2 SAT 100 , Nasal Cannula, O2 Flow Rate 4.0 . Vital Sign Comment: [NA] EKG Rhythm: Sinus Rhythm Rhythm change?: N Notified?: Lakesha KAUFFMAN MD Response: Message left await call Latest Farooq Fall Score: 35 Fall Risk: Medium Risk Safety Measures: Call light Within Reach, Bed Alarm Zone 1, Side Rails Side Rails x2, Bed position Low and Locked. Fall Precautions: Yellow Socks Report given to [GENTRY Romero].
--- NOTE | 2020-02-22 07:53 | NUR ---
NURSE NOTES: Received report from GENTRY Ramos. Pt is sleeping on the side, stable AOx4. Pt was on RA but asked for his NC, found intertwined in his bed. Pt on 4LPM NC. Pt has no IV side per GENTRY Ramos; the Pt refused and kept taking them out 10/1 AM shift and Md Nieto is aware and medications changed to PO. Skin is intact. Bed low and locked, call light in reach and bed alarm on.
[2020-02-22 08:00] VITALS: BP 112/69
[2020-02-22] MEDS: Aspirin EC 81mg tab ORAL SCH (08:57)
[2020-02-22] MEDS: Lisinopril 2.5mg tab ORAL SCH (08:59)
[2020-02-22] MEDS: Allopurinol 100mg Tab ORAL SCH (09:00)
[2020-02-22] MEDS: Cyclobenzaprine 10mg Tab ORAL SCH ×2 (09:01→17:00)
[2020-02-22] MEDS: Spironolactone 25mg tab ORAL SCH (09:02)
[2020-02-22] MEDS: Wixela 250/50 Inhaler - 60 dose INH SCH ×2 (09:03→23:02)
[2020-02-22] MEDS: Furosemide 40mg tab ORAL SCH ×2 (09:03→22:01)
[2020-02-22] MEDS: metOLazone 2.5 MG TAB ORAL SCH (09:05)
--- NOTE | 2020-02-22 10:46 | CDS Physician Query ---
Clarification is required for compliance, coding accuracy, and to reflect severity of illness for this patient Dear Dr. Dav Cardoza Date: 02/22/2020 Rn Patient Services/CDS Name: Ana Edwards Clinical Documentation states: Cardiology consult - The patient is a 54-year-old gentleman...Exacerbation of congestive heart failure in this patient with nonischemic cardiomyopathy, EF of 10% to 15%. Resume Coreg, lisinopril, Lasix, and Aldactone Please Clarify the type of exacerbated CHF: [] Systolic [] Diastolic [] Systolic & Diastolic (Combined) [] Other: Present on Admission: [] Yes [] No [] Clinically Undetermined Physician signature Date Please also document in your Progress Notes and/or Discharge Summary and indicate if the condition was present on admission. MARTHA
--- NOTE | 2020-02-22 10:54 | CDS Physician Query ---
Clarification is required for compliance, coding accuracy, and to reflect severity of illness for this patient Dear Dr. Dav Cardoza Date: 02/22/2020 Entry Level Administrative Assistant/CDS Name: Ana Edwards Clinical Documentation states: Cardiology consult - 54-year-old gentleman...Elevated troponin. Likely due to renal failure Creatinine: 02/18 and 02/20 - 1/ mg/dl Please Clarify the type of renal failure below: Etiology [] Acute Renal Failure w/ Tubular Necrosis [] Acute Renal Failure w/ Cortical Necrosis [] Acute Renal Failure w/ Medullary Necrosis [] Acute Renal Failure (unspecified) [] Other: If Chronic, please specify the stage: [] CKD Stage 1 [] CKD Stage 2 [] CKD Stage 3 [] CKD Stage 4 [] CKD Stage 5 [] ESRD [] Not applicable Present on Admission: [] Yes [] No [] Clinically Undetermined Physician signature Date Please also document in your Progress Notes and/or Discharge Summary and indicate if the condition was present on admission. ALLEYD
--- NOTE | 2020-02-22 11:17 | General Progress Note ---
Subjective Date patient seen: Feb 22, 2020 Time patient seen: 11:00 Constitutional: Reports: weakness, other Allergies: Coded Allergies: SIMVASTATIN (Verified Allergy, Unknown, 07/03/19) Uncoded Allergies: STATINS (Allergy, Unknown, 08/13/19) Subjective sleeping having tremors pulled iv line Objective Last 24 Hour Vital Signs Date Time Temp Pulse Resp B/P (MAP) Pulse Ox O2 Delivery O2 Flow Rate FiO2 02/22/20 09:16 Nasal Cannula 4.0 36 02/22/20 09:14 Nasal Cannula 4.0 36 02/22/20 09:01 95 112/69 02/22/20 09:00 Nasal Cannula 4.0 02/22/20 08:59 112/68 02/22/20 08:18 97 Nasal Cannula 4.0 36 02/22/20 08:00 97.9 95 18 112/69 (83) 100 02/22/20 08:00 88 02/22/20 04:00 93 02/22/20 04:00 97.9 61 22 103/74 (84) 100 02/22/20 00:00 97.9 71 22 99/73 (82) 98 02/22/20 00:00 92 02/21/20 21:00 98 92/67 02/21/20 21:00 Nasal Cannula 4.0 02/21/20 20:00 90 02/21/20 20:00 97.7 98 24 92/67 (75) 100 02/21/20 19:48 98 Nasal Cannula 4.0 36 02/21/20 16:08 74 02/21/20 16:00 98.0 75 20 111/69 (83) 99 02/21/20 12:00 98.1 65 20 104/73 (83) 100 02/21/20 11:56 92 Intake and Output 02/21/20 02/22/20 19:00 07:00 Intake Total 270 ml 400 ml Output Total 1000 ml 620 ml Balance -730 ml -220 ml Intake Oral 270 ml 400 ml Output Urine Total 1000 ml 620 ml # Bowel Movements 1 Height (Feet): 5 Height (Inches): 6.00 Weight (Pounds): 230 General Appearance: alert, obese, alert oriented x3 EENT: PERRL/EOMI Neck: supple Cardiovascular: regular rhythm Respiratory/Chest: expiratory wheezing Abdomen: non tender Extremities: swelling Edema: mild edema Skin: warm/dry Assessment/Plan Status: doing well, progressing Assessment/Plan: chf acs cm muscle spasm chronic pain neck and back obesity recomended icd cont medical tx add ambien for insomania fluid and salt restriction pt WANTS SECOND OPINION for icd placement dr rodriguez for consult Jimenez Cardoza MD Feb 22, 2020 11:17
[2020-02-22 12:00] VITALS: BP 100/66
--- NOTE | 2020-02-22 13:58 | NUR ---
CASE MANAGEMENT:REVIEW 02/22/20 SI: CHF W/EF 15-20% . ACS V-TACH 98.1 88 100/66 96% ON 4L/NC IS: LASIX PO Q12 AMOXIL PO Q8HRS ALDACTONE PO QD PREDNISONE PO QD ZAROXOLYN PO QD LISINOPRIL PO QD ASA PO QD COREG PO Q12 ADVAIR INH Q12 : TELEMETRY PLAN: PATIENT REQUESTED SECOND OPINION SEEN BY [employer]INEER DR VALENTE SECOND OPINION DR BAILEY TO SEE PATIENT
--- NOTE | 2020-02-22 15:00 | NUR ---
INSURANCE FAXED CLINICALS/REVIEW TO [facility] [phone]
[2020-02-22 15:54] VITALS: BP 106/69
--- NOTE | 2020-02-22 15:56 | Cardiac Electrophysiology PN ---
Assessment/Plan Assessment/Plan 1. Elevated troponin. Likely due to renal failure. Ruled out [place] protocol and we will repeat the EKG and echocardiogram. His EKG from today showed sinus tachycardia at 108 with PACs and lateral T-wave inversion. We will continue on Coreg and aspirin 2. Exacerbation of CHF in this patient with nonischemic cardiomyopathy, EF of 10% to 15%. On Coreg, lisinopril, Lasix, and Aldactone. We will watch the renal function. 3. Recurrent long runs of ventricular tachycardia up to 24 beats on the previous admission. Has had multiple runs of 10 and 13 beats . Discussed the need for ICD with the patient again. He agreed today for ICD implant on Tuesday Last admission he agreed, but then refused at last minute. 4. History of atrial flutter, currently remains in sinus rhythm. 5. History of hypertension. Maximize heart failure therapy. 6. Morbid obesity. 7. Renal failure, creatinine 1.5. 8. History of Graves disease. Subjective Subjective Had 10 beats of VT again today. Had SVT also. On iv Lasix. Objective Last 24 Hour Vital Signs Date Time Temp Pulse Resp B/P (MAP) Pulse Ox O2 Delivery O2 Flow Rate FiO2 02/22/20 12:00 98.1 88 18 100/66 (77) 96 02/22/20 12:00 90 02/22/20 09:16 Nasal Cannula 4.0 36 02/22/20 09:14 Nasal Cannula 4.0 36 02/22/20 09:01 95 112/69 02/22/20 09:00 Nasal Cannula 4.0 02/22/20 08:59 112/68 02/22/20 08:18 97 Nasal Cannula 4.0 36 02/22/20 08:00 97.9 95 18 112/69 (83) 100 02/22/20 08:00 88 02/22/20 04:00 93 02/22/20 04:00 97.9 61 22 103/74 (84) 100 02/22/20 00:00 97.9 71 22 99/73 (82) 98 02/22/20 00:00 92 02/21/20 21:00 98 92/67 02/21/20 21:00 Nasal Cannula 4.0 02/21/20 20:00 90 02/21/20 20:00 97.7 98 24 92/67 (75) 100 02/21/20 19:48 98 Nasal Cannula 4.0 36 02/21/20 16:08 74 02/21/20 16:00 98.0 75 20 111/69 (83) 99 Intake and Output 02/21/20 02/22/20 19:00 07:00 Intake Total 270 ml 400 ml Output Total 1000 ml 620 ml Balance -730 ml -220 ml Intake Oral 270 ml 400 ml Output Urine Total 1000 ml 620 ml # Bowel Movements 1 Objective HEAD AND NECK: Positive JVD. LUNGS: Decreased breath sounds. CARDIOVASCULAR: Regular S1 and S2 with no gallop. ABDOMEN: Soft. EXTREMITIES: 2+ pitting edema and scrotal edema. Spenser Kimble MD Feb 22, 2020 15:56
[2020-02-22 20:00] VITALS: BP 104/74
--- NOTE | 2020-02-22 20:00 | NUR ---
NURSE HAND-OFF REPORT: Important Events on Shift: beats of Vtach--md aware; notify MD for vatch >15 beats, consent signed for def placement by luis sunday 02/25 Patient Status: fc, stable Diet: low sodium, 2g, reg texture Pending Orders: Pending Results/Labs: Pending MD notification: Latest Vital Signs: Temperature 97.6 , Pulse 96 , B/P 106 /69 , Respiratory Rate 17 , O2 SAT 97 , Nasal Cannula, O2 Flow Rate 4.0 . Vital Sign Comment: EKG Rhythm: Sinus Rhythm Rhythm change?: N Notified?: Y -luis Escobar MD Response: No New Orders Received Latest Farooq Fall Score: 35 Fall Risk: Medium Risk Safety Measures: Call light Within Reach, Bed Alarm Zone 1, Side Rails Side Rails x2, Bed position Low and Locked. Fall Precautions: Yellow Socks Report given to Gigi RINALDI.
--- NOTE | 2020-02-22 20:05 | NUR ---
NURSE NOTES: Patient received from GENTRY Romero. Patient is awake, alert and oriented x 4. Patient is watching TV right now. Patient does not have IV on him. No signs of acute distress. Patient is able to walk. Bed is in the lowest position, call light within reach. Will continue to monitor.
[2020-02-23] VITALS: BP 106/64
--- NOTE | 2020-02-23 00:29 | Psych Consult Progress Note ---
Psychiatry Progress Note Psychiatry Progress Note Medications Current Medications Medications (Trade) Dose Ordered Sig/Marybeth Route PRN Reason Start Time Stop Time Status Last Admin Dose Admin Acetaminophen (Tylenol) 650 mg Q4H PRN ORAL pain and fever 02/19/20 10:30 03/20/20 10:29 02/20/20 05:40 Albuterol/ Ipratropium (Albuterol/ Ipratropium) 3 ml Q4H PRN HHN Shortness of Breath 02/19/20 10:22 02/24/20 10:21 Allopurinol (Zyloprim) 200 mg DAILY ORAL 02/20/20 09:00 03/21/20 08:59 02/22/20 09:00 Amoxicillin (Amoxil) 250 mg EVERY 8 HOURS ORAL 02/21/20 14:00 02/26/20 06:01 02/22/20 22:01 Aspirin (Ecotrin) 81 mg DAILY ORAL 02/20/20 09:00 04/05/20 08:59 02/22/20 08:57 Carvedilol (Coreg) 3.125 mg EVERY 12 HOURS ORAL 02/19/20 21:00 03/20/20 20:59 02/22/20 22:02 Clonidine HCl (Catapres Tab) 0.1 mg Q4H PRN ORAL sbp>170mmHg 02/19/20 10:30 05/19/20 10:29 Cyclobenzaprine HCl (Flexeril) 10 mg BID ORAL 02/19/20 18:00 02/26/20 17:59 02/22/20 17:00 Furosemide (Lasix) 40 mg EVERY 12 HOURS ORAL 02/21/20 21:00 03/22/20 20:59 02/22/20 22:01 Gabapentin (Neurontin) 300 mg BID ORAL 02/19/20 18:00 03/20/20 17:59 02/22/20 17:00 Lisinopril (ZestriL) 5 mg DAILY ORAL 02/20/20 09:00 03/21/20 08:59 02/22/20 08:59 Metolazone (Zaroxolyn) 2.5 mg DAILY ORAL 02/20/20 09:00 03/21/20 08:59 02/22/20 09:05 Morphine Sulfate (Morphine Sulfate) 1 mg Q6H PRN IVP For Pain 02/19/20 17:30 10/6/20 17:29 02/20/20 20:59 Nitroglycerin (Ntg) 0.4 mg Q5M PRN SL Prn Chest Pain 02/19/20 11:00 03/20/20 10:59 Potassium Chloride (K-Dur) 10 meq DAILY ORAL 02/20/20 09:00 05/20/20 08:59 02/22/20 08:57 Prednisone (predniSONE) 10 mg DAILY ORAL 02/20/20 09:00 03/21/20 08:59 02/22/20 09:01 Salmeterol Xinafoate/ Fluticasone (Advair 250/50 Diskus) 1 puffs EVERY 12 HOURS INH 02/19/20 21:00 05/19/20 20:59 02/22/20 23:02 Spironolactone (Aldactone) 25 mg DAILY ORAL 02/20/20 09:00 03/21/20 08:59 02/22/20 09:02 Zolpidem Tartrate (Ambien) 5 mg HSPRN PRN ORAL Insomnia 02/20/20 15:30 02/27/20 15:29 Neurological/Psychiatric: Reports: anxiety, depressed, emotional problems Allergies: Coded Allergies: SIMVASTATIN (Verified Allergy, Unknown, 07/03/19) Uncoded Allergies: STATINS (Allergy, Unknown, 08/13/19) Objective Data Height (Feet): 5 Height (Inches): 6.00 Weight (Pounds): 230 General Appearance: alert, obese, alert oriented x3 Additional Comments: alert, oriented times self, place, situation. Mood is anxious. Affect is blunted, congruent with mood. Thought process is concrete. Thought content, there is no suicidal or homicidal ideation. Cognition is impaired. Insight and judgment impaired. Assessment/Plan Status: doing well, progressing Assessment/Plan: ASSESSMENT: [place] I Anxiety disorder. [place] II Deferred. [place] III As above. [place] IV Low. [place] V 20. PLAN: 1. We will start patient on Ativan p.r.n. 2. SSRIs. 3. Provide the patient with reality orientation and supportive therapy. Efren Kemp MD Feb 23, 2020 00:29
[2020-02-23 04:00] VITALS: BP 107/70
--- NOTE | 2020-02-23 07:50 | NUR ---
NURSE HAND-OFF REPORT: Important Events on Shift:[] Patient Status: [Stable] Diet: [Low sodium diet] Pending Orders: [] Pending Results/Labs:[] Pending MD notification:[] Latest Vital Signs: Temperature 98.7 , Pulse 92 , B/P 107 /70 , Respiratory Rate 21 , O2 SAT 98 , Nasal Cannula, O2 Flow Rate 4.0 . Vital Sign Comment: [] EKG Rhythm: Sinus Rhythm w/ PAC Rhythm change?: N Notified?: Lakesha perez Md, MD Response: No New Orders Received Latest Farooq Fall Score: 35 Fall Risk: Medium Risk Safety Measures: Call light Within Reach, Bed Alarm Zone 1, Side Rails Side Rails x2, Bed position Low and Locked. Fall Precautions: Yellow Socks Report given to [GENTRY Jones].
--- NOTE | 2020-02-23 07:54 | NUR ---
NURSE NOTES: Received report from GENTRY Yu. pt sitting up in bed. Pt A/O x4. With mild SOB. On O2 4L NC. Pt currently refuse saline lock. Bed in low position, side rails up x2 and call light within reach. Will continue to monitor.
[2020-02-23] MEDS: Lisinopril 2.5mg tab ORAL SCH (09:00)
[2020-02-23] MEDS: Furosemide 40mg tab ORAL SCH ×2 (09:00→21:43)
[2020-02-23] MEDS: Cyclobenzaprine 10mg Tab ORAL SCH ×2 (09:23→18:00)
[2020-02-23] MEDS: Wixela 250/50 Inhaler - 60 dose INH SCH ×2 (09:23→21:45)
[2020-02-23] MEDS: Aspirin EC 81mg tab ORAL SCH (09:24)
[2020-02-23] MEDS: Spironolactone 25mg tab ORAL SCH (09:24)
[2020-02-23] MEDS: Allopurinol 100mg Tab ORAL SCH (09:24)
[2020-02-23] MEDS: metOLazone 2.5 MG TAB ORAL SCH (09:24)
[2020-02-23 12:00] VITALS: BP 107/70
--- NOTE | 2020-02-23 13:00 | NUR ---
RD ASSESSMENT & RECOMMENDATIONS SEE CARE ACTIVITY FOR COMPLETE ASSESSMENT DAILY ESTIMATED NEEDS: Needs based on Cardiac, Obese 72kg abw 23-28 kcals/kg [id number] total kcals 1-1.3 g protein/kg 72-94 g total protein Fluids per MD/ CHF dx + diuretics mL/kg NUTRITION DIAGNOSIS: Altered nutrition related lab values R/T CHF dx as evidenced by elev BNP (2172), on diuretics. CURRENT DIET:LOW NA PO DIET RECOMMENDATIONS: Maintain LOW NA/ texture as tolerated ADDITIONAL RECOMMENDATIONS: 1) Daily standing wt for accuracy: monitor trend Pt on lasix+ aldactone 2) Check lytes daily on diuretics, replete as needed . .
--- NOTE | 2020-02-23 13:25 | General Progress Note ---
Subjective Allergies: Coded Allergies: SIMVASTATIN (Verified Allergy, Unknown, 07/03/19) Uncoded Allergies: STATINS (Allergy, Unknown, 08/13/19) Subjective doing ok feels shaky agreed fot icd placement on tuesday Objective Last 24 Hour Vital Signs Date Time Temp Pulse Resp B/P (MAP) Pulse Ox O2 Delivery O2 Flow Rate FiO2 02/23/20 12:00 100.2 95 22 107/70 (82) 95 02/23/20 12:00 99 02/23/20 09:00 Nasal Cannula 4.0 02/23/20 08:00 91 02/23/20 04:00 92 02/23/20 04:00 98.7 88 21 107/70 (82) 98 02/23/20 00:00 99.0 85 23 106/64 (78) 94 02/23/20 00:00 95 02/22/20 22:02 77 104/74 02/22/20 21:00 Nasal Cannula 4.0 02/22/20 20:00 103 02/22/20 20:00 99.0 77 23 104/74 (84) 97 02/22/20 19:00 97 Nasal Cannula 5.0 40 02/22/20 16:00 96 02/22/20 15:54 127 02/22/20 15:54 97.6 81 17 106/69 (81) 97 Intake and Output 02/22/20 02/23/20 19:00 07:00 Intake Total 800 ml 360 ml Output Total 1300 ml Balance -500 ml 360 ml Intake Oral 800 ml 360 ml Output Urine Total 1300 ml Height (Feet): 5 Height (Inches): 6.00 Weight (Pounds): 230 General Appearance: alert, overweight, alert oriented x3 EENT: PERRL/EOMI, normal ENT inspection Neck: supple Cardiovascular: regular rhythm Respiratory/Chest: normal breath sounds Abdomen: non tender, soft Extremities: swelling Edema: mild edema Neurologic: multicultural internship II-XII grossly normal, oriented x 3 Skin: warm/dry Assessment/Plan Status: doing well, progressing Assessment/Plan: chf acs cm muscle spasm chronic pain neck and back obesity recomended icd cont medical tx add ambien for insomania fluid and salt restriction pt WANTS SECOND OPINION for icd placement dr rodriguez for consult pt agrred for icd on tuesday Jimenez Cardoza MD Feb 23, 2020 13:25
[2020-02-23 16:00] VITALS: BP 130/80
--- NOTE | 2020-02-23 16:38 | Cardiac Electrophysiology PN ---
Assessment/Plan Assessment/Plan 1. Elevated troponin. Due to renal failure. Ruled out [place] protocol and we will repeat the EKG and echocardiogram. His EKG showed sinus tachycardia at 108 with PACs and lateral T-wave inversion. We will continue on Coreg and aspirin 2. Exacerbation of CHF in this patient with nonischemic cardiomyopathy, EF of 10% to 15%. On Coreg, lisinopril, Lasix, and Aldactone. 3. Recurrent long runs of ventricular tachycardia up to 24 beats on the previous admission. Has had multiple runs of 10 and 13 beats of VT on this admission . Discussed the need for ICD with the patient again. He agreed and consented for ICD implant on Tuesday Last admission also he agreed, but then refused at last minute. 4. History of atrial flutter, currently remains in sinus rhythm. 5. History of hypertension. Maximize heart failure therapy. 6. Morbid obesity. 7. Renal failure, creatinine 1.5. 8. History of Graves disease. Subjective Subjective Had 10 and 12 beats of VT again today.Consented for ICD. On iv Lasix. Objective Last 24 Hour Vital Signs Date Time Temp Pulse Resp B/P (MAP) Pulse Ox O2 Delivery O2 Flow Rate FiO2 02/23/20 12:00 100.2 95 22 107/70 (82) 95 02/23/20 12:00 99 02/23/20 09:00 Nasal Cannula 4.0 02/23/20 08:00 91 02/23/20 04:00 92 02/23/20 04:00 98.7 88 21 107/70 (82) 98 02/23/20 00:00 99.0 85 23 106/64 (78) 94 02/23/20 00:00 95 02/22/20 22:02 77 104/74 02/22/20 21:00 Nasal Cannula 4.0 02/22/20 20:00 103 02/22/20 20:00 99.0 77 23 104/74 (84) 97 02/22/20 19:00 97 Nasal Cannula 5.0 40 Intake and Output 02/22/20 02/23/20 19:00 07:00 Intake Total 800 ml 360 ml Output Total 1300 ml Balance -500 ml 360 ml Intake Oral 800 ml 360 ml Output Urine Total 1300 ml Objective HEAD AND NECK: Positive JVD. LUNGS: Decreased breath sounds. CARDIOVASCULAR: Regular S1 and S2 with no gallop. ABDOMEN: Soft. EXTREMITIES: 2+ pitting edema and scrotal edema. Spenser Kimble MD Feb 23, 2020 16:38
--- NOTE | 2020-02-23 19:28 | NUR ---
NURSE HAND-OFF REPORT: Important Events on Shift:[] Patient Status: [] Diet: [] Pending Orders: [] Pending Results/Labs:[] Pending MD notification:[] Latest Vital Signs: Temperature 97.7 , Pulse 96 , B/P 130 /80 , Respiratory Rate 22 , O2 SAT 97 , Nasal Cannula, O2 Flow Rate 5.0 . Vital Sign Comment: [] EKG Rhythm: Sinus Rhythm w/ PAC Rhythm change?: N Notified?: Lakesha perez Md, MD Response: No New Orders Received Latest Farooq Fall Score: 35 Fall Risk: Medium Risk Safety Measures: Call light Within Reach, Bed Alarm Zone 1, Side Rails Side Rails x2, Bed position Low and Locked. Fall Precautions: Yellow Socks Report given to [GENTRY Das].
--- NOTE | 2020-02-23 19:31 | NUR ---
NURSE NOTES: Received report from GENTRY Jones. Pt sitting up in bed. Pt A/O x4. With mild SOB especially upon exertion On O2 4L NC, however pt seems to adjust as it was on 5 L. Pt currently refuse saline MD darius aware no IV access. Bed in low position, side rails up x2 and call light within reach. Will continue to monitor.
[2020-02-23 20:00] VITALS: BP 122/82
[2020-02-24] VITALS: BP 122/88
--- NOTE | 2020-02-24 02:00 | NUR ---
NURSE NOTES: Left voicemail for Dr Kimble re 18 beats of Vtach, will also inform in the morning. pt had 15 beats of vtach earlier as well
[2020-02-24 04:00] VITALS: BP 133/83
--- NOTE | 2020-02-24 06:52 | NUR ---
NURSE HAND-OFF REPORT: Important Events on Shift:[18 beats of vtach at 0200, previously 15 beats Vtach in earlier evening] Patient Status: [Stable] Diet: [Low sodium diet] Pending Orders: [-] Pending Results/Labs:[-] Pending MD notification:[luis re 18 beats Vtach around 0200] to be scheduled for AICD on Saturday 02/24 EKG Rhythm: Sinus Rhythm w/ PAC, 18 beats and 15 beats of VTach message left for Dr Kimble Rhythm change?: Ismael ADORNO Notified?: Randi Adorno MD Response: No New Orders Received, awaiting response Latest Farooq Fall Score: 35 Fall Risk: Medium Risk Safety Measures: Call light Within Reach, Bed Alarm Zone 1, Side Rails Side Rails x2, Bed position Low and Locked. Fall Precautions: Yellow Socks Report given to [GENTRY Jones].
[2020-02-24 08:00] VITALS: BP 135/78
--- NOTE | 2020-02-24 08:19 | NUR ---
NURSE NOTES: Received report from GENTRY Silvestre. Pt A/O x4. With SOB during exertion. On O2 4L NC. Currently refuses saline lock. Pt had [address] Kimble made aware. Pt to start NPO at midnight tonight for AICD procedure tomorrow. Consent is signed. Bed in low position, side rails up x2 and call light within reach. Will continue to monitor.
[2020-02-24] MEDS: Aspirin EC 81mg tab ORAL SCH (09:15)
[2020-02-24] MEDS: metOLazone 2.5 MG TAB ORAL SCH (09:15)
[2020-02-24] MEDS: Lisinopril 2.5mg tab ORAL SCH (09:15)
[2020-02-24] MEDS: Wixela 250/50 Inhaler - 60 dose INH SCH ×2 (09:16→21:00)
[2020-02-24] MEDS: Cyclobenzaprine 10mg Tab ORAL SCH ×2 (09:16→17:24)
[2020-02-24] MEDS: Furosemide 40mg tab ORAL SCH ×2 (09:16→21:08)
[2020-02-24] MEDS: Allopurinol 100mg Tab ORAL SCH (09:16)
[2020-02-24] MEDS: Spironolactone 25mg tab ORAL SCH (09:16)
[2020-02-24 11:55] VITALS: BP 112/85
--- NOTE | 2020-02-24 12:07 | Cardiology Report ---
APPROVED REPORT EKG Measurement Heart [id number] <Conclusion> Sinus rhythm with premature supraventricular complexes Right superior axis deviation Possible Right ventricular hypertrophy Cannot rule out Anterior infarct, age undetermined Abnormal ECG
--- NOTE | 2020-02-24 13:35 | General Progress Note ---
Subjective Date patient seen: Feb 24, 2020 Time patient seen: 11:00 Allergies: Coded Allergies: SIMVASTATIN (Verified Allergy, Unknown, 07/03/19) Uncoded Allergies: STATINS (Allergy, Unknown, 08/13/19) Subjective doing ok agreed fot icd placement on tuesday sitting bedside Objective Last 24 Hour Vital Signs Date Time Temp Pulse Resp B/P (MAP) Pulse Ox O2 Delivery O2 Flow Rate FiO2 02/24/20 12:00 87 02/24/20 11:55 96.6 92 22 112/85 (94) 97 02/24/20 11:09 59 20 99 Nasal Cannula 5.0 40 02/24/20 11:09 59 20 99 Nasal Cannula 5.0 40 02/24/20 11:09 Nasal Cannula 5.0 40 02/24/20 11:09 99 Nasal Cannula 5.0 40 02/24/20 09:16 91 135/78 02/24/20 09:15 135/78 02/24/20 09:00 Nasal Cannula 4.0 02/24/20 08:00 97.9 91 20 135/78 (97) 96 02/24/20 04:00 99 02/24/20 04:00 97.9 93 18 133/83 (100) 100 02/24/20 00:54 126 02/24/20 00:00 98.1 74 20 122/88 (99) 97 02/24/20 00:00 89 02/23/20 21:52 97 122/82 02/23/20 21:46 73 20 100 Nasal Cannula 5.0 40 02/23/20 21:45 100 Nasal Cannula 5.0 40 02/23/20 21:45 72 20 100 Nasal Cannula 5.0 40 02/23/20 21:00 Nasal Cannula 4.0 02/23/20 20:00 98.1 97 22 122/82 (95) 98 02/23/20 20:00 97 02/23/20 16:00 96 02/23/20 16:00 97.7 93 22 130/80 (97) 97 Intake and Output 02/23/20 02/24/20 19:00 07:00 Intake Total 400 ml Balance 400 ml Intake Oral 400 ml # Voids 2 Height (Feet): 5 Height (Inches): 6.00 Weight (Pounds): 230 Assessment/Plan Status: doing well, progressing Assessment/Plan: chf acs cm muscle spasm chronic pain neck and back obesity recomended icd cont medical tx add ambien for insomania fluid and salt restriction pt WANTS SECOND OPINION for icd placement dr rodriguez for consult pt agrred for icd on tuesday Jimenez Cardoza MD Feb 24, 2020 13:35
[2020-02-24 16:00] VITALS: BP 129/85
--- NOTE | 2020-02-24 17:16 | Cardiac Electrophysiology PN ---
Assessment/Plan Assessment/Plan 1. Elevated troponin. Due to renal failure. Ruled out MN protocol His EKG showed sinus tachycardia PACs and lateral T-wave inversion. We will continue on Coreg and aspirin 2. Exacerbation of CHF in this patient with nonischemic cardiomyopathy, EF of 10% to 15%. On Coreg, lisinopril, Lasix, and Aldactone. 3. Recurrent long runs of ventricular tachycardia up to 24 beats on the previous admission. Has had multiple ( more than 10) runs of 10 to 18 beats of VT on this admission . Discussed the need for ICD with the patient again. He agreed and consented for ICD implant tomorrow Last admission also he agreed, but then refused at last minute. 4. History of atrial flutter, currently remains in sinus rhythm. 5. History of hypertension. Maximize heart failure therapy. 6. Morbid obesity. 7. Renal failure, creatinine 1.5. 8. History of Graves disease. ESDRAS RN Subjective Subjective Had 15 and 18 beats of VT again overnight.Consented and will keep NPO after MN for ICD tomorrow. On iv Lasix. Objective Last 24 Hour Vital Signs Date Time Temp Pulse Resp B/P (MAP) Pulse Ox O2 Delivery O2 Flow Rate FiO2 02/24/20 16:00 92 02/24/20 16:00 96.6 85 20 129/85 (100) 100 02/24/20 12:00 87 02/24/20 11:55 96.6 92 22 112/85 (94) 97 02/24/20 11:09 59 20 99 Nasal Cannula 5.0 40 02/24/20 11:09 59 20 99 Nasal Cannula 5.0 40 02/24/20 11:09 Nasal Cannula 5.0 40 02/24/20 11:09 99 Nasal Cannula 5.0 40 02/24/20 09:16 91 135/78 02/24/20 09:15 135/78 02/24/20 09:00 Nasal Cannula 4.0 02/24/20 08:00 97.9 91 20 135/78 (97) 96 02/24/20 04:00 99 02/24/20 04:00 97.9 93 18 133/83 (100) 100 02/24/20 00:54 126 02/24/20 00:00 98.1 74 20 122/88 (99) 97 02/24/20 00:00 89 02/23/20 21:52 97 122/82 02/23/20 21:46 73 20 100 Nasal Cannula 5.0 40 02/23/20 21:45 100 Nasal Cannula 5.0 40 02/23/20 21:45 72 20 100 Nasal Cannula 5.0 40 02/23/20 21:00 Nasal Cannula 4.0 02/23/20 20:00 98.1 97 22 122/82 (95) 98 02/23/20 20:00 97 Intake and Output 02/23/20 02/24/20 19:00 07:00 Intake Total 400 ml Balance 400 ml Intake Oral 400 ml # Voids 2 Objective HEAD AND NECK: Positive JVD. LUNGS: Decreased breath sounds. CARDIOVASCULAR: Regular S1 and S2 with no gallop. ABDOMEN: Soft. EXTREMITIES: 2+ pitting edema and scrotal edema. Spenser Kimble MD Feb 24, 2020 17:16
--- NOTE | 2020-02-24 19:15 | NUR ---
NURSE NOTES: RECEIVED REPORT FROM GENTRY LIEBERMAN. AAOX4, VERBALLY RESPONSIVE AND ABLE TO MAKE NEEDS KNOWN. NO COMPLAINTS OF PAIN OR DISCOMFORT NOTED. BREATHING IS EVEN AND UNLABORED ON 4LPM VIA NC, NO S/SX OF DISTRESS NOTED AT THIS TIME. PATIENT HAS NO IV ACCESS PATIENT HAS REFUSED PRIOR ATTEMPTS. REMINDED PATIENT HE WILL BE NPO AFTER MIDNIGHT FOR HIS PROCEDURE TOMORROW, 02/24. PATIENT AGREED TO IV INSERTION, BUT LATER TONIGHT. FALL PRECAUTIONS IN PLACE. BED LOCKED AND IN LOWEST POSITION, SIDERAILS UP X 2. BSC AND URINAL WITHIN REACH. CALL LIGHT WITHIN REACH. WILL CONTINUE TO MONITOR.
--- NOTE | 2020-02-24 19:23 | NUR ---
NURSE HAND-OFF REPORT: Important Events on Shift:[] Patient Status: [] Diet: [] Pending Orders: [] Pending Results/Labs:[] Pending MD notification:[] Latest Vital Signs: Temperature 96.6 , Pulse 92 , B/P 129 /85 , Respiratory Rate 20 , O2 SAT 100 , Nasal Cannula, O2 Flow Rate 5.0 . Vital Sign Comment: [] EKG Rhythm: Sinus Rhythm w/ PAC Rhythm change?: N MD Notified?: Y -Dr Lamin ADORNO Response: No New Orders Received Latest Farooq Fall Score: 35 Fall Risk: Medium Risk Safety Measures: Call light Within Reach, Bed Alarm Zone 1, Side Rails Side Rails x2, Bed position Low and Locked. Fall Precautions: Yellow Socks Report given to [GENTRY Chowdhury].
--- NOTE | 2020-02-24 19:45 | NUR ---
NURSE NOTES: CONTACTED DR. VALENTE FOR RAPID COVID TEST PER PROTOCOL SINCE PATIENT IS HAVE PROCEDURE DONE TOMORROW. AWAITING CALL BACK.
[2020-02-24 20:00] VITALS: BP 132/89
--- NOTE | 2020-02-24 20:30 | NUR ---
NURSE NOTES: RECEIVED TO/RB ORDER FOR RAPID COVID TEST FROM DR. VALENTE. NOTED AND CARRIED OUT.
--- NOTE | 2020-02-24 21:00 | NUR ---
NURSE NOTES: IV ACCESS ESTABLISHED ON RFA 22G.
[2020-02-24] MEDS: Morphine Sulfate 2mg/ml Inj(IV/IM USE ONLY) IVP PRN (21:38)
--- NOTE | 2020-02-24 22:36 | NUR ---
NURSE NOTES: COVID SWAB COLLECTED AND SENT TO LAB.
--- NOTE | 2020-02-24 22:55 | NUR ---
NURSE NOTES: PER TOÑA IN LAB, COVID RAPID IS NEGATIVE.
--- NOTE | 2020-02-24 23:43 | NUR ---
NURSE NOTES: REMINDED PATIENT OF NPO STATUS. CLEARED BEDSIDE TABLE OF FOOD AND DRINKS. PATIENT VERBALIZED UNDERSTANDING THAT HE CANNOT HAVE ANYTHING BY MOUTH STARTING AT MIDNIGHT.
[2020-02-25] VITALS (18 sets, daily range): BP systolic 113–151; BP diastolic 68–110
--- NOTE | 2020-02-25 00:30 | NUR ---
NURSE NOTES: PATIENT HAD EPISODE OF 6 BEATS VTACH, HR 113. PATIENT ASLEEP, ASYMPTOMATIC. PATIENT HAS HISTORY OF UP TO 24 BEATS VTACH. WILL CONTINUE TO MONITOR.
--- NOTE | 2020-02-25 05:52 | NUR ---
NURSE NOTES: PATIENT REQUEST IV TO BE REMOVED. INFORMED PATIENT IV ACCESS IS NECESSARY FOR HIS PROCEDURE TODAY. PATIENT ALSO REQUESTED FOR JUICE. REMINDED PATIENT HE IS NPO FOR HIS PROCEDURE TODAY AND CAN ONLY HAVE SIP OF WATER WITH MEDICATIONS. PATIENT STATED, "ALRIGHT FINE, I HAVE JUICES SOMEWHERE HERE". REMINDED PATIENT HE CANNOT GO FOR PROCEDURE IF HE DOES NOT COMPLY WITH NPO STATUS, WHICH INCLUDES DRINKING JUICE.
--- NOTE | 2020-02-25 06:04 | NUR ---
NURSE NOTES: WEIGHED PATIENT WITHOUT PERSONAL BELONGINGS ON BED.
--- NOTE | 2020-02-25 07:15 | NUR ---
NURSE HAND-OFF REPORT: Important Events on Shift: FOR AICD TODAY 02/24, RESISTIVE TO CARE Patient Status: STABLE Diet: NPO Pending Orders: N/A Pending Results/Labs:N/A Pending MD notification:N/A Latest Vital Signs: Temperature 96.8 , Pulse 99 , B/P 115 /68 , Respiratory Rate 20 , O2 SAT 98 , Nasal Cannula, O2 Flow Rate 5.0 . Vital Sign Comment: STABLE EKG Rhythm: Sinus Rhythm Rhythm change?: N MD Notified?: Y -Dr Lamin ADORNO Response: No New Orders Received Latest Farooq Fall Score: 35 Fall Risk: Medium Risk Safety Measures: Call light Within Reach, Bed Alarm Zone 1, Side Rails Side Rails x2, Bed position Low and Locked. Fall Precautions: Yellow Gown Door Sign Patient Fall Education Report given to GENTRY WASHINGTON.
[2020-02-25] MEDS ORDERED: Lidocaine 1% Plain 30 ml INJ ONE (07:27)
[2020-02-25] MEDS ORDERED: Isovue-M 300 15ml INJ ONE (08:42)
[2020-02-25] MEDS: Aspirin EC 81mg tab ORAL SCH (09:00)
[2020-02-25] MEDS: Cyclobenzaprine 10mg Tab ORAL SCH ×2 (09:09→18:19)
[2020-02-25] MEDS: Furosemide 40mg tab ORAL SCH (09:09)
[2020-02-25] MEDS: Allopurinol 100mg Tab ORAL SCH (09:11)
[2020-02-25] MEDS: metOLazone 2.5 MG TAB ORAL SCH (09:12)
[2020-02-25] MEDS: Wixela 250/50 Inhaler - 60 dose INH SCH ×2 (09:13→21:33)
[2020-02-25] MEDS: Lisinopril 2.5mg tab ORAL SCH (09:13)
[2020-02-25] MEDS: Spironolactone 25mg tab ORAL SCH (09:13)
--- NOTE | 2020-02-25 09:42 | History & Physical ---
History of Present Illness General Date patient seen: Feb 19, 2010 Time patient seen: 09:00 Reason for Hospitalization: Chest Pain Present Illness HPI Allergies: Coded Allergies: SIMVASTATIN (Verified Allergy, Unknown, 07/03/19) Uncoded Allergies: STATINS (Allergy, Unknown, 08/13/19) Subjective complain sob rec cp, neck pain cardiac wp in progress Objective Last 24 Hour Vital Signs Date Time Temp Pulse Resp B/P (MAP) Pulse Ox O2 Delivery O2 Flow Rate FiO2 02/20/20 08:21 98 Nasal Cannula 4.0 36 02/20/20 04:00 93 02/20/20 04:00 98.5 85 16 117/71 (86) 100 02/20/20 00:00 98.1 95 18 97/67 (77) 100 02/20/20 00:00 96 02/19/20 23:27 98 Nasal Cannula 4.0 36 02/19/20 21:46 90 105/72 02/19/20 21:00 Nasal Cannula 4.0 02/19/20 20:00 88 02/19/20 20:00 97.5 90 16 105/72 (83) 100 02/19/20 16:36 93 02/19/20 16:00 98.7 67 20 121/69 (86) 97 02/19/20 15:28 106 02/19/20 12:00 97.9 89 18 112/76 (88) 95 02/19/20 11:41 71 02/19/20 10:13 95 02/19/20 09:30 Nasal Cannula 2.0 02/19/20 09:30 98.4 80 20 119/94 (102) 94 02/19/20 09:09 98.2 99 18 123/78 99 Nasal Cannula 2.0 Intake and Output 02/19/20 02/20/20 18:59 06:59 Intake Total 195 ml 990 ml Output Total 1200 ml 1000 ml Balance -1005 ml -10 ml Intake Oral 140 ml 960 ml IV Total 55 ml 30 ml Output Urine Total 1200 ml 1000 ml # Voids 3 3 # Bowel Movements 1 Laboratory Tests 02/19/20 11:55: Troponin I 0.054 02/19/20 18:35: Troponin I 0.055 02/20/20 03:15: Troponin I 0.056, Pro-B-Type Natriuretic Peptide 2776H, Triglycerides Level 25L, Cholesterol Level 155, LDL Cholesterol 84, HDL Cholesterol 57, Cholesterol/HDL Ratio 2.7L, Thyroid Stimulating Hormone (TSH) 3.515, Free Thyroxine 1.14 Height (Feet): 5 Height (Inches): 6.00 Weight (Pounds): 230 General Appearance: alert, moderate distress, morbidly obese, alert oriented x3 EENT: PERRL/EOMI Neck: muscle spasm, pain on motion, stiff neck Cardiovascular: regular rhythm Respiratory/Chest: expiratory wheezing Abdomen: non tender, soft Pelvis: normal external exam Genitourinary/Rectal: normal genital exam Extremities: swelling Edema: 2+ Leg (L), 2+ Pedal (L), 2+ Pedal (R), 2+ Generalized Edema: severe edema Neurologic: director of sleep II-XII grossly normal Assessment/Plan Status: progressing Assessment/Plan: chf acs cm muscle spasm chronic pain neck and back obesity recomended icd cont medical tx add ambien for insomania fluid and salt restriction dw charge nurse Jimenez Cardoza MD Feb 20, 2020 08:54 <Electronically signed by Jimenez Cardoza MD> 02/20/20 [id number] Allergies: Coded Allergies: SIMVASTATIN (Verified Allergy, Unknown, 07/03/19) Uncoded Allergies: STATINS (Allergy, Unknown, 08/13/19) COVID-19 Screening Contact w/high risk pt: No Recent Travel to affected area: No Experienced COVID-19 symptoms?: No Medication History Scheduled Albuterol Sulfate* (Albuterol Sulfate Hfa*), 2 PUFF INH Q8HR, (Reported) Allopurinol* (Allopurinol*), 200 MG ORAL DAILY, (Reported) Amoxicillin* (Amoxicillin*), 500 MG ORAL EVERY 8 HOURS, (Reported) Aspirin Ec* (Aspirin Ec*), 81 MG ORAL DAILY, (Reported) Fluticasone/Salmeterol (Advair 250-50 Diskus), 2 PUFF INH EVERY 12 HOURS, (Reported) Furosemide* (Lasix*), 80 MG ORAL BID, (Reported) Hydralazine HCl (Hydralazine HCl), 10 MG ORAL DAILY, (Reported) Lisinopril* (Lisinopril*), 5 MG ORAL DAILY, (Reported) Metolazone (Metolazone), 2.5 MG PO DAILY, (Reported) Prednisone* (Prednisone*), 10 MG ORAL DAILY, (Reported) Spironolactone* (Aldactone*), 25 MG ORAL DAILY, (Reported) Patient History Healthcare decision maker Resuscitation status Advanced Directive on File Review of Systems Review of Symptoms General ROS: no weight loss or fever Psychological ROS: no depression or mood changes, no memory loss Ophthalmic ROS: no visual changes or eye irritation ENT ROS: no nasal congestion, hearing loss, dizziness Allergy and Immunology ROS: no allergic symptoms or urticaria Hematological and Lymphatic ROS: no swollen glands, unusual bleeding or bruising Endocrine ROS: no polyuria, polydipsia, weight changes, temperature intolerance Respiratory ROS: no cough, shortness of breath, or wheezing Cardiovascular ROS: no chest pain or dyspnea on exertion Gastrointestinal ROS: denies abdominal pain, bright red blood in stool. Musculoskeletal ROS: no myalgias or arthralgias Neurological ROS: no TIA or stroke symptoms Dermatological ROS: no new or changing skin lesions, rashes or pruritis Physical Exam Physical Exam General appearance: alert, cooperative, no distress, appears stated age Head: Normocephalic, without obvious abnormality, atraumatic Eyes: conjunctivae/corneas clear. PERRL, EOM's intact. Fundi benign Throat: Lips, mucosa, and tongue normal. Teeth and gums normal Neck: supple, symmetrical, trachea midline, no adenopathy, thyroid: not enlarged, symmetric, no tenderness/mass/nodules, no carotid bruit and no JVD Lungs: clear to auscultation bilaterally Heart: regular rate and rhythm, S1, S2 normal, no murmur, click, rub or gallop Abdomen: soft, non-tender. Bowel sounds normal. No masses, no organomegaly Extremities: extremities normal, atraumatic, no cyanosis or edema Pulses: 2+ and symmetric Skin: Skin color, texture, turgor normal. No rashes or lesions Neurologic: Grossly normal Last 24 Hour Vital Signs Date Time Temp Pulse Resp B/P (MAP) Pulse Ox O2 Delivery O2 Flow Rate FiO2 02/25/20 09:13 140/75 02/25/20 09:10 72 140/75 02/25/20 04:00 96.8 99 20 115/68 (84) 98 02/25/20 04:00 90 02/25/20 00:00 90 02/25/20 00:00 96.8 89 22 128/70 (89) 99 02/24/20 22:29 Nasal Cannula 5.0 40 02/24/20 22:28 Nasal Cannula 5.0 40 02/24/20 22:26 100 Nasal Cannula 5.0 40 02/24/20 22:08 96.6 02/24/20 21:08 83 132/89 02/24/20 21:00 Nasal Cannula 4.0 02/24/20 20:00 100 02/24/20 20:00 97.0 83 22 132/89 (103) 100 02/24/20 16:00 92 02/24/20 16:00 96.6 85 20 129/85 (100) 100 02/24/20 12:00 87 02/24/20 11:55 96.6 92 22 112/85 (94) 97 02/24/20 11:09 59 20 99 Nasal Cannula 5.0 40 02/24/20 11:09 59 20 99 Nasal Cannula 5.0 40 02/24/20 11:09 Nasal Cannula 5.0 40 02/24/20 11:09 99 Nasal Cannula 5.0 40 Intake and Output 02/24/20 02/25/20 19:00 07:00 Intake Total 720 ml 480 ml Output Total 450 ml Balance 720 ml 30 ml Intake Oral 720 ml 480 ml Output Urine Total 450 ml # Voids 4 Microbiology Date/Time Source Procedure Growth Status 02/24/20 10:14 Nasopharynx SARS-CoV-2 RdRp Gene Assay - Final Complete Height (Feet): 5 Height (Inches): 6.00 Weight (Pounds): 234 Medications Current Medications Medications (Trade) Dose Ordered Sig/Marybeth Route PRN Reason Start Time Stop Time Status Last Admin Dose Admin Acetaminophen (Tylenol) 650 mg Q4H PRN ORAL pain and fever 02/19/20 10:30 03/20/20 10:29 02/24/20 13:27 Allopurinol (Zyloprim) 200 mg DAILY ORAL 02/20/20 09:00 03/21/20 08:59 02/25/20 09:11 Amoxicillin (Amoxil) 250 mg EVERY 8 HOURS ORAL 02/21/20 14:00 02/26/20 06:01 02/25/20 05:41 Aspirin (Ecotrin) 81 mg DAILY ORAL 02/20/20 09:00 04/05/20 08:59 02/24/20 09:15 Carvedilol (Coreg) 3.125 mg EVERY 12 HOURS ORAL 02/19/20 21:00 03/20/20 20:59 02/25/20 09:10 Clonidine HCl (Catapres Tab) 0.1 mg Q4H PRN ORAL sbp>170mmHg 02/19/20 10:30 05/19/20 10:29 Cyclobenzaprine HCl (Flexeril) 10 mg BID ORAL 02/19/20 18:00 02/26/20 17:59 02/25/20 09:09 Furosemide (Lasix) 40 mg EVERY 12 HOURS ORAL 02/21/20 21:00 03/22/20 20:59 02/25/20 09:09 Gabapentin (Neurontin) 300 mg BID ORAL 02/19/20 18:00 03/20/20 17:59 02/25/20 09:10 Lisinopril (ZestriL) 5 mg DAILY ORAL 02/20/20 09:00 03/21/20 08:59 02/25/20 09:13 Metolazone (Zaroxolyn) 2.5 mg DAILY ORAL 02/20/20 09:00 03/21/20 08:59 02/25/20 09:12 Morphine Sulfate (Morphine Sulfate) 1 mg Q6H PRN IVP For Pain 02/19/20 17:30 02/26/20 17:29 02/24/20 21:38 Nitroglycerin (Ntg) 0.4 mg Q5M PRN SL Prn Chest Pain 02/19/20 11:00 03/20/20 10:59 Potassium Chloride (K-Dur) 10 meq DAILY ORAL 02/20/20 09:00 05/20/20 08:59 02/25/20 09:12 Prednisone (predniSONE) 10 mg DAILY ORAL 02/20/20 09:00 03/21/20 08:59 02/25/20 09:09 Salmeterol Xinafoate/ Fluticasone (Advair 250/50 Diskus) 1 puffs EVERY 12 HOURS INH 02/19/20 21:00 05/19/20 20:59 02/25/20 09:13 Spironolactone (Aldactone) 25 mg DAILY ORAL 02/20/20 09:00 03/21/20 08:59 02/25/20 09:13 Zolpidem Tartrate (Ambien) 5 mg HSPRN PRN ORAL Insomnia 02/20/20 15:30 02/27/20 15:29 Assessment/Plan Assessment/Plan: chf acs cm muscle spasm chronic pain neck and back obesity recomended icd cont medical tx add ambien for insomania fluid and salt restriction pt WANTS SECOND OPINION for icd placement dr rodriguez for consult pt agrred for icd on tuesday [facility] Hospital declaration INPATIENT level of care is warranted for this patient because patient is a 89 year old with who presents with suspicion of . I have a high level of concern because . Patient is at high risk for . Plan of care/treatment include . Patient care is expected to be greater than 2 midnights. OBSERVATION level of care is warranted for this patient. Patient is a 89 year old with who presents with . Patient will be admitted for 1 midnight, but if additional night(s) is/are necessary, patient will be converted to inpatient status for the entire hospitalization Disposition: Once the patient is stable to leave the hospital, I anticipate the patient will likely be discharged to the following environment: Estimated discharge date: I spent 70 minutes on this patient's case, and minutes was dedicated to counseling and/or care coordination. MIPS (Merit-based Incentive Payment System) Applicable CPT: 96414, 39374 CHECK ALL THAT ARE MET: Measure #5 (CHF): All ages. Prescribe THO/ARB upon discharge for patients with left ventricular systolic dysfunction. If not, the reason is clearly documented in the medical chart. Measure #8 (CHF): All ages. Prescribe a beta david upon discharge for patients with left ventricular systolic dysfunction. If not, the reason is clearly documented in the medical chart. Measure #47 Advance care plan or surrogate decision maker documented in the medical record. Measure #130 The provider has documented, updated, or reviewed the patients current medication list and has documented it in the patients note. Measure #374 (All): Send report to referring provider. Measure #407(Sepsis due to MSSA bacteremia): Age 18+ Patient treated with a beta-lactam antibiotic (Nafcillin, Oxacillin or Cefazolin) as definitive therapy. MEDICAL COMPLEXITY High complexity medical decision making (need 2/3 categories) Problem - need 4 points Acute/new problem with new plan for workup (4 points, 1 max) Acute/new problem without additional workup (3 points, 1 max) Unstable chronic problem actively being managed (2 point each, 2 max) Stable chronic problem actively being managed (1 point each, 2 max) Self-limited/transient process (constipation, muscle ache, etc) (1 point each, 2 max) Data - need 4 points Reviewed labs/imaging studies (1 points, 2 max) Independent review of imaging (EKG, xrays, etc) (2 points, 2 max) Discussed case with consult/other MD/RN (2 points, 2 max) High Risk - qualify if have one of the following: Severe exacerbation of acute problem, acute mental status change, IV narcot ics, monitoring drug levels (vancomycin, INR, tacrolimus etc) Jimenez Cardoza MD Feb 25, 2020 09:42
--- NOTE | 2020-02-25 09:44 | General Progress Note ---
Subjective Date patient seen: Feb 25, 2020 Time patient seen: 09:00 Constitutional: Reports: no symptoms Allergies: Coded Allergies: SIMVASTATIN (Verified Allergy, Unknown, 07/03/19) Uncoded Allergies: STATINS (Allergy, Unknown, 08/13/19) Subjective doing ok agreed fot icd placement on tuesday sitting bedside Objective Last 24 Hour Vital Signs Date Time Temp Pulse Resp B/P (MAP) Pulse Ox O2 Delivery O2 Flow Rate FiO2 02/25/20 09:13 140/75 02/25/20 09:10 72 140/75 02/25/20 04:00 96.8 99 20 115/68 (84) 98 02/25/20 04:00 90 02/25/20 00:00 90 02/25/20 00:00 96.8 89 22 128/70 (89) 99 02/24/20 22:29 Nasal Cannula 5.0 40 02/24/20 22:28 Nasal Cannula 5.0 40 02/24/20 22:26 100 Nasal Cannula 5.0 40 02/24/20 22:08 96.6 02/24/20 21:08 83 132/89 02/24/20 21:00 Nasal Cannula 4.0 02/24/20 20:00 100 02/24/20 20:00 97.0 83 22 132/89 (103) 100 02/24/20 16:00 92 02/24/20 16:00 96.6 85 20 129/85 (100) 100 02/24/20 12:00 87 02/24/20 11:55 96.6 92 22 112/85 (94) 97 02/24/20 11:09 59 20 99 Nasal Cannula 5.0 40 02/24/20 11:09 59 20 99 Nasal Cannula 5.0 40 02/24/20 11:09 Nasal Cannula 5.0 40 02/24/20 11:09 99 Nasal Cannula 5.0 40 Intake and Output 02/24/20 02/25/20 19:00 07:00 Intake Total 720 ml 480 ml Output Total 450 ml Balance 720 ml 30 ml Intake Oral 720 ml 480 ml Output Urine Total 450 ml # Voids 4 Height (Feet): 5 Height (Inches): 6.00 Weight (Pounds): 234 General Appearance: alert EENT: PERRL/EOMI Neck: supple Cardiovascular: regular rhythm Respiratory/Chest: normal breath sounds Abdomen: soft Extremities: non-tender Edema: trace edema Assessment/Plan Status: doing well, progressing Assessment/Plan: chf acs cm muscle spasm chronic pain neck and back obesity recomended icd cont medical tx add ambien for insomania fluid and salt restriction pt WANTS SECOND OPINION for icd placement dr rodriguez for consult pt agrred for icd Jimenez Mcdonald MD Feb 25, 2020 09:44
[2020-02-25] MEDS: Morphine Sulfate 2mg/ml Inj(IV/IM USE ONLY) IVP PRN (11:18)
--- NOTE | 2020-02-25 11:57 | Anethesia Preoperative Eval ---
Anesthesia Pre-op PMH/ROS General Date of Evaluation: Feb 25, 2020 Time of Evaluation: 11:51 Anesthesiologist: Luz Marina ASA Score: ASA 4 - Emergency Mallampati Score Class I : Soft palate, uvula, fauces, pillars visible Class II: Soft palate, uvula, fauces visible Class III: Soft palate, base of uvula visible Class IV: Only hard plate visible Mallampati Classification: Class III Surgeon: Lamin Diagnosis: AFlutter, VTach Surgical Procedure: ICD Placement Anesthesia History: none Family History: no anesthesia problems Allergies: Coded Allergies: SIMVASTATIN (Verified Allergy, Unknown, 07/03/19) Uncoded Allergies: STATINS (Allergy, Unknown, 08/13/19) Medications: see eMAR Patient NPO?: Yes Past Medical History Cardiovascular: Reports: HTN, CAD - Stent, arrhythmia - AFlutter , VTach, other - CHF Pulmonary: Reports: COPD Gastrointestinal/Genitourinary: Reports: ESRD Endocrine: Reports: other - Hyperthyroidism Hematology/Immune: Reports: anemia Musculoskeletal/Integumentary: Reports: edema - Lower Ext Anesthesia Pre-op Phys. Exam Physician Exam Last Vital Signs Date Time Temp Pulse Resp B/P (MAP) Pulse Ox O2 Delivery O2 Flow Rate FiO2 02/25/20 09:13 140/75 02/25/20 09:10 72 02/25/20 09:00 Nasal Cannula 4.0 02/25/20 08:00 97.5 20 97 02/24/20 22:29 40 Constitutional: NAD Neurologic: CN 2-12 intact Cardiovascular: RRR Respiratory: CTA Gastrointestinal: S/NT/ND Airway Exam Mallampati Score: Class III MO: limited ROM: limited Teeth: missing, intact Anesthesia Pre-op A/P Studies Pre-op Studies: echo Risk Assessment & Plan Assessment: ASA 4E Plan: GA Status Change Before Surgery: No Pre-Antibiotics Dru Grams Ancef IV Given Within 1 Hr of Incision: Yes Time Given: 12:16 Mike Raza MD Feb 25, 2020 11:57
--- NOTE | 2020-02-25 11:59 | Immediate Post-Op Evaluation ---
Immediate Post-Op Evalulation Immediate Post-Op Evalulation Procedure: ICD Placement Date of Evaluation: Feb 25, 2020 Time of Evaluation: 13:32 IV Fluids: 100 LR Blood Products: 0 Estimated Blood Loss: 10 Urinary Output: 0 Blood Pressure Systolic: 153 Blood Pressure Diastolic: 111 Pulse Rate: 113 Respiratory Rate: 20 O2 Sat by Pulse Oximetry: 97 Temperature (Fahrenheit): 97.6 Pain Score (1-10): 2 Nausea: No Vomiting: No Complications 0 Patient Status: awake, reacts, patent, none Hydration Status: adequate Dru Grams Ancef IV Given Within 1 Hr of Incision: Yes Time Given: 12:16 Mike Raza MD Feb 25, 2020 11:59
[2020-02-25] MEDS ORDERED: DiphenhydrAMINE 50mg/ml Inj IVP PRN (12:00)
[2020-02-25] MEDS ORDERED: LR 1000ml ONE (12:00)
[2020-02-25] MEDS ORDERED: Meperidine 25mg/0.5ml Inj (FOR RIGORS ONLY) IV PRN (12:00)
[2020-02-25] MEDS ORDERED: LORazepam Inj 2mg/ml 1ml IV PRN (12:00)
[2020-02-25] MEDS ORDERED: NS Irrig 1000ml ONE (12:00)
[2020-02-25] MEDS ORDERED: HYDROcodone/Acetamin 7.5/325 tab ORAL PRN (12:00)
[2020-02-25] MEDS ORDERED: fentaNYL 100 mcg/2 mL IV PRN (12:00)
[2020-02-25] MEDS ORDERED: Metoclopramide 10mg/2ml Inj IVP PRN (12:00)
[2020-02-25] MEDS ORDERED: LR 1000ml 1,000 ML IVLG SCH (12:00)
[2020-02-25] MEDS ORDERED: HYDROcodone/Acetamin 5/325 tab ORAL PRN (12:00)
[2020-02-25] MEDS ORDERED: Atropine Sulfate 0.4mg/ml inj IVP PRN (12:00)
[2020-02-25] MEDS ORDERED: Midazolam 2mg/2ml Inj IVP PRN (12:00)
[2020-02-25] MEDS ORDERED: oxyCODONE HCL/Acetaminophen 5/325mg ORAL PRN (12:00)
[2020-02-25] MEDS ORDERED: Hydromorphone 0.5mg/0.5ml inj IVP PRN (12:00)
[2020-02-25] MEDS ORDERED: Sterile Water Irrig 1000ml IRRIG ONE (12:00)
--- NOTE | 2020-02-25 12:12 | Pre-Procedure Note/Attestation ---
Pre-Procedure Note/Attestation Complete Prior to Procedure Planned Procedure: left Procedure Narrative: ICD implantation Indications for Procedure Pre-Operative Diagnosis: severe cardiomyopathy. Recurrent VT Attestation I attest that I discussed the nature of the procedure; its benefits; risks and complications; and alternatives (and the risks and benefits of such alternatives), prior to the procedure, with the patient (or the patient's legal automobile rental representative). I attest that, if there was a reasonable possibility of needing a blood transfusion, the patient (or the patient's legal automobile rental representative) was given the [facility] standardized written summary, pursuant to the Rashad Fletcher Blood Safety Act ([place] Health and Safety Code # 1645, as amended). I attest that I re-evaluated the patient just prior to the surgery and that there has been no change in the patient's H&P, except as documented below: Spenser Kimble MD Feb 25, 2020 12:12
--- NOTE | 2020-02-25 12:15 | Cardiac Electrophysiology PN ---
Assessment/Plan Assessment/Plan 1. Elevated troponin. Due to renal failure. Ruled out OR protocol His EKG showed sinus tachycardia PACs and lateral T-wave inversion. We will continue on Coreg and aspirin 2. Exacerbation of CHF in this patient with nonischemic cardiomyopathy, EF of 10% to 15%. On Coreg, lisinopril, Lasix, and Aldactone. 3. Recurrent long runs of ventricular tachycardia up to 24 beats on the previous admission. Has had multiple ( more than 10) runs of 10 to 18 beats of VT on this admission . Discussed the need for ICD with the patient again. He agreed and consented and is NPO for ICD implant today 4. History of atrial flutter, currently remains in sinus rhythm. 5. History of hypertension. Maximize heart failure therapy. 6. Morbid obesity. 7. Renal failure, creatinine 1.5. 8. History of Graves disease. ESDRAS RN Subjective Subjective Had 15 and 18 beats of VT again yesterday.Consented and NPO for ICD implant today Objective Last 24 Hour Vital Signs Date Time Temp Pulse Resp B/P (MAP) Pulse Ox O2 Delivery O2 Flow Rate FiO2 02/25/20 09:13 140/75 02/25/20 09:10 72 140/75 02/25/20 09:00 Nasal Cannula 4.0 02/25/20 08:00 96 02/25/20 08:00 97.5 98 20 140/75 (96) 97 02/25/20 04:00 96.8 99 20 115/68 (84) 98 02/25/20 04:00 90 02/25/20 00:00 90 02/25/20 00:00 96.8 89 22 128/70 (89) 99 02/24/20 22:29 Nasal Cannula 5.0 40 02/24/20 22:28 Nasal Cannula 5.0 40 02/24/20 22:26 100 Nasal Cannula 5.0 40 02/24/20 22:08 96.6 02/24/20 21:08 83 132/89 02/24/20 21:00 Nasal Cannula 4.0 02/24/20 20:00 100 02/24/20 20:00 97.0 83 22 132/89 (103) 100 02/24/20 16:00 92 02/24/20 16:00 96.6 85 20 129/85 (100) 100 Intake and Output 02/24/20 02/25/20 19:00 07:00 Intake Total 720 ml 480 ml Output Total 450 ml Balance 720 ml 30 ml Intake Oral 720 ml 480 ml Output Urine Total 450 ml # Voids 4 Microbiology Date/Time Source Procedure Growth Status 02/24/20 10:14 Nasopharynx SARS-CoV-2 RdRp Gene Assay - Final Complete Objective HEAD AND NECK: Positive JVD. LUNGS: Decreased breath sounds. CARDIOVASCULAR: Regular S1 and S2 with no gallop. ABDOMEN: Soft. EXTREMITIES: 2+ pitting edema and scrotal edema. Spenser Kimble MD Feb 25, 2020 12:15
[2020-02-25] MEDS ORDERED: Midazolam 2mg/2ml Inj ONE (12:30)
[2020-02-25] MEDS ORDERED: Bupivacaine 0.5% Inj 30 ml vial INJ ONE (12:39)
[2020-02-25] MEDS ORDERED: NS 275ml IRRIG ONE (12:48)
[2020-02-25] MEDS ORDERED: Flumazenil 0.5mg/5ml Inj IV ONE (13:10)
--- NOTE | 2020-02-25 14:00 | Brief Operative Note ---
Immediate Post Operative Note Operative Note Pre-op Diagnosis: severe cardiomyopathy. Recurrent VT Procedure: Single chamber [facility] [employer] ICD implant dictated [id number] Post-op Diagnosis: same as pre-op Specimen: none Complications: none Condition: stable Fluids: none Estimated Blood Loss: minimal Drains: none Implant(s) used?: Yes Spenser Kimble MD Feb 25, 2020 13:59
--- NOTE | 2020-02-25 14:15 | NUR ---
NURSE NOTES: Received patient from PACU via gurney , awake and alert , on O2 via FM- noted to be tachypnic- RR28-34 .min. Placed comfortably in bed - attached to surveillance monitor - shows SR rate 96-98/min. With LR infusing via Left hand ( #!8) and with another SL @ RFA # 22- both sites patent - no s/s infiltration noted. Patient refusing FM- asking for NC- O2 changed to 5L via NC SaO2 98% . Placed in high fowlers position. Bedrest re emphasized.
--- NOTE | 2020-02-25 15:07 | NUR ---
NURSE NOTES: Monica Cowan ( Sister)- notified by phone that patient is in ICU post AICD placement
--- NOTE | 2020-02-25 15:20 | NUR ---
NURSE NOTES: Dr. Kimble here seen and examined the patient- order to insert doshi catheter- patient refused . Patient even refused condom catheter to be placed- Dr. Kimble aware
--- NOTE | 2020-02-25 15:50 | NUR ---
NURSE NOTES: Dr. Kimble came to talk to patient- agreed to place the arm sling
--- NOTE | 2020-02-25 16:46 | Diagnostic Imaging Report ---
INDICATION: Pain, intraoperative TECHNIQUE: Intraoperative imaging Fluoroscopy time: 50.4 seconds Total dose: 0.36537 mGym2 Total number of images: 2 COMPARISON: None FINDINGS: Intraoperative images document placement of a left chest unifocal AICD IMPRESSION: Intraoperative imaging, as described
--- NOTE | 2020-02-25 16:46 | Diagnostic Imaging Report ---
INDICATION: Pain, intraoperative TECHNIQUE: Intraoperative imaging Fluoroscopy time: 50.4 seconds Total dose: 0.38598 mGym2 Total number of images: 2 COMPARISON: None FINDINGS: Intraoperative images document placement of a left chest unifocal AICD IMPRESSION: Intraoperative imaging, as described
[2020-02-25 16:52] LABS: HEMATOCRIT 36.1 % (42.0-52.0); HEMOGLOBIN 10.8 G/DL (14.2-18.0); MEAN CORPUSCULAR VOLUME 106 FL (80-99); PLATELET COUNT 81 K/UL (150-450); WHITE BLOOD COUNT 6.8 K/UL (4.8-10.8)
--- NOTE | 2020-02-25 16:53 | Diagnostic Imaging Report ---
Indication: Status post pacemaker Technique: One view of the chest Comparison: 02/19/2020 Findings: Interim placement of left chest unifocal AICD. The heart remains enlarged. There is no pneumothorax. There is suggestion of bilateral pleural fluid and bilateral hazy infiltrates versus edema. These are new finding since previous study. Impression: Satisfactory pacemaker placement. No radiographically evident, location Bilateral hazy parenchymal infiltrates versus edema and likely bilateral pleural effusions
[2020-02-25 17:02] LABS: BLOOD UREA NITROGEN 20 mg/dL (7-18); CALCIUM 9.3 MG/DL (8.5-10.1); CHLORIDE 102 MMOL/L (98-107); CREATININE 1.4 MG/DL (0.55-1.30); POTASSIUM 4.8 MMOL/L (3.5-5.1); SODIUM 142 MMOL/L (136-145)
[2020-02-25 17:04] LABS: INR 1.2 (0.9-1.1)
[2020-02-25 17:21] LABS: CARBON DIOXIDE 36 MMOL/L (21-32)
--- NOTE | 2020-02-25 17:52 | 48 Hour Post Anesthesia Eval ---
Post Anesthesia Evaluation Procedure: ICD Placement Date of Evaluation: Feb 25, 2020 Time of Evaluation: 17:50 Blood Pressure Systolic: 125 0: 92 Pulse Rate: 95 Respiratory Rate: 28 Temperature (Fahrenheit): 97.2 O2 Sat by Pulse Oximetry: 100 Airway: patent Nausea: No Vomiting: No Pain Intensity: 2 Hydration Status: adequate Cardiopulmonary Status: Stable Mental Status/LOC: patient returned to baseline Follow-up Care/Observations: Concerned About Respiratory Rate Post-Anesthesia Complications: 0 Follow-up care needed: N/A Mike Raza MD Feb 25, 2020 17:52
--- NOTE | 2020-02-25 18:00 | NUR ---
NURSE NOTES: Patient voiding frequently- Lasix drip at 10 mg/hr. O2 at 4L/min- Sao2 94-98%
--- NOTE | 2020-02-25 19:15 | Operative Note - Dictated ---
DATE OF OPERATION: 02/25/2020 PROCEDURE: Defibrillator implantation. SURGEON: Spenser Kimble MD INDICATION FOR PROCEDURE: Severe nonischemic dilated cardiomyopathy with ejection fraction of 10% and recurrent runs of ventricular tachycardia. The patient has been on medical therapy for more than 6 months. PROCEDURE PERFORMED: 1. Single-chamber ICD implantation. 2. Fluoroscopic supervision and interpretation. 3. ICD programming during initial implant. OPERATIVE REPORT: The patient was brought into the operating room in the fasting state and after informed consent was obtained. Time-out was performed. The patient was prepped and draped under sterile conditions. The patient received antibiotics within an hour of incision. After prep and drape and under sterile condition, a total of 30 mL lidocaine was given to the left prepectoralis area. An incision was made along the left deltopectoral groove. Sharp and blunt dissection was made to the level of pectoralis fascia. The cephalic vein was isolated and cutdown was performed. The right ventricular lead was placed through this access and was placed in the right ventricular apex with excellent sensing and pacing parameters. The lead was then connected to defibrillator and left in the pocket after pocket was irrigated with antibiotic solution. The pocket was then closed in three layers using 2-0 Vicryl and Dermabond. The patient suffered no immediate complications from the procedure and was transferred to recovery room in stable condition. FINDINGS: The defibrillator is from [employer], model , serial #[id number]. The right ventricular lead is from [employer], serial #[id number]. R-wave is 8.2 millivolts, threshold is 0.5 volts at 0.5 milliseconds, impedance of 450 ohms. IMPRESSION: 1. Successful single-chamber defibrillator implantation. 2. ICD was programmed to jo rate of 60 with VVI mode. VT monitor zone at heart rate of 150 beats per minute and VT therapy zone is heart rate of 171 beats per minute with antitachycardia pacing at 845 volts x5. Ventricular fibrillation zone with heart rate of more than 220 beats per minute with first antitachycardia pacing at 845 volts and then 890 volts x5. 3. No immediate complications from the procedure. Spenser Kimble M.D. DR: Juarez JOB#: [id number] CC:
--- NOTE | 2020-02-25 19:15 | NUR ---
HAND-OFF: Report given to Balaji Gallo RN.Endorsed
--- NOTE | 2020-02-25 19:54 | NUR ---
NURSE NOTES: Received patient from GENTRY Luz. Sleeping with HOB up 45 degrees. Easily awakened to verbal stimuli. A/OX3-4 On 5L/NC saturating at 90% Respirations even and unlabored at 30-34/min. Pt is a mouth breather when sleeping and not benefiting nasal canula but refusing face mask adamantly. SR on monitor. lasix drip infusing at 10 ml/hr. Voiding clear yellow urine via urinal. Another access of SL to RFA #22 gauge. Both w/no signs of infiltration noted. In no apparent distress. Calm and cooperative. Will continue POC
[2020-02-25] MEDS: ceFAZolin sod 1 GM in D5W 55 ML IVPB SCH (21:31)
--- NOTE | 2020-02-25 22:00 | NUR ---
NURSE NOTES: Sleeping but easily awakened. VSS. Afebfrile. Denies pain or discomfort. No distress noted.
--- NOTE | 2020-02-25 23:15 | Psych Consult Progress Note ---
Psychiatry Progress Note Psychiatry Progress Note Medications Current Medications Medications (Trade) Dose Ordered Sig/Marybeth Route PRN Reason Start Time Stop Time Status Last Admin Dose Admin Acetaminophen (Tylenol) 650 mg Q4H PRN ORAL Mild Pain (Pain Scale 1-3) 02/19/20 10:30 03/20/20 10:29 02/24/20 13:27 Acetaminophen (Tylenol) 650 mg Q6H PRN ORAL Temp >100.5 02/25/20 14:15 03/26/20 14:14 Acetaminophen/ Codeine Phosphate (Tylenol #3) 1 tab Q4H PRN ORAL Moderate Pain (Pain Scale 4-6) 02/25/20 14:15 03/03/20 14:14 Allopurinol (Zyloprim) 200 mg DAILY ORAL 02/20/20 09:00 03/21/20 08:59 02/25/20 09:11 Aspirin (Ecotrin) 81 mg DAILY ORAL 02/20/20 09:00 04/05/20 08:59 02/24/20 09:15 Carvedilol (Coreg) 3.125 mg EVERY 12 HOURS ORAL 02/19/20 21:00 03/20/20 20:59 02/25/20 21:32 Cefazolin Sodium 1 gm/Dextrose 55 ml @ 110 mls/hr Q8H IVPB 02/25/20 20:00 03/03/20 19:59 02/25/20 21:31 Clonidine HCl (Catapres Tab) 0.1 mg Q4H PRN ORAL sbp>170mmHg 02/19/20 10:30 05/19/20 10:29 Cyclobenzaprine HCl (Flexeril) 10 mg BID ORAL 02/19/20 18:00 02/26/20 17:59 02/25/20 18:19 Furosemide 100 mg/ Dextrose 100 ml @ 10 mls/hr Q10H IV 02/25/20 16:00 03/26/20 15:59 02/25/20 15:24 Gabapentin (Neurontin) 300 mg BID ORAL 02/19/20 18:00 03/20/20 17:59 02/25/20 18:19 Lisinopril (ZestriL) 5 mg DAILY ORAL 02/20/20 09:00 03/21/20 08:59 02/25/20 09:13 Morphine Sulfate (Morphine Sulfate) 2 mg Q1H PRN IVP Severe Pain (Pain Scale 7-10) 02/25/20 14:15 03/03/20 14:14 Nitroglycerin (Ntg) 0.4 mg Q5M PRN SL Prn Chest Pain 02/19/20 11:00 03/20/20 10:59 Ondansetron HCl (Zofran) 4 mg Q6H PRN IVP Nausea & Vomiting 02/25/20 14:15 03/26/20 14:14 Potassium Chloride (K-Dur) 10 meq DAILY ORAL 02/20/20 09:00 05/20/20 08:59 02/25/20 09:12 Prednisone (predniSONE) 10 mg DAILY ORAL 02/20/20 09:00 03/21/20 08:59 02/25/20 09:09 Salmeterol Xinafoate/ Fluticasone (Advair 250/50 Diskus) 1 puffs EVERY 12 HOURS INH 02/19/20 21:00 05/19/20 20:59 02/25/20 21:33 Spironolactone (Aldactone) 25 mg DAILY ORAL 02/20/20 09:00 03/21/20 08:59 02/25/20 09:13 Zolpidem Tartrate (Ambien) 5 mg HSPRN PRN ORAL Insomnia 02/20/20 15:30 02/27/20 15:29 Neurological/Psychiatric: Reports: anxiety, depressed, emotional problems Allergies: Coded Allergies: SIMVASTATIN (Verified Allergy, Unknown, 07/03/19) Uncoded Allergies: STATINS (Allergy, Unknown, 08/13/19) Objective Data Height (Feet): 5 Height (Inches): 6.00 Weight (Pounds): 234 General Appearance: WD/WN, no apparent distress, alert Additional Comments: alert, oriented times self, place, situation. Mood is anxious. Affect is blunted, congruent with mood. Thought process is concrete. Thought content, there is no suicidal or homicidal ideation. Cognition is impaired. Insight and judgment impaired. Assessment/Plan Tamar[place] I: ASSESSMENT: Tamaroa I Anxiety disorder. Tamar[place] II Deferred. Tamar[place] III As above. Tamar[place] IV Low. Tamar[place] V 20. PLAN: 1. We will start patient on Ativan p.r.n. 2. SSRIs. 3. Provide the patient with reality orientation and supportive therapy. Status: doing well, progressing Status Narrative ASSESSMENT: Tamar[place] I Anxiety disorder. Tamar[place] II Deferred. Tamar[place] III As above. Tamar[place] IV Low. Tamar[place] V 20. PLAN: 1. We will start patient on Ativan p.r.n. 2. SSRIs. 3. Provide the patient with reality orientation and supportive therapy. Assessment/Plan: ASSESSMENT: Tamar[place] I Anxiety disorder. Tamaroa II Deferred. Tamar[place] III As above. Tamar[place] IV Low. [place]ar[place] V 20. PLAN: 1. We will start patient on Ativan p.r.n. 2. SSRIs. 3. Provide the patient with reality orientation and supportive therapy. Efren Kemp MD Feb 25, 2020 23:15
[2020-02-26] VITALS (27 sets, daily range): BP systolic 85–145; BP diastolic 47–88
--- NOTE | 2020-02-26 | NUR ---
NURSE NOTES: Continue to refuse O2 via face mask. Respirations even and unlabored. VSS. No distress noted. Voiding large amounts of pale yellow urine via urinal.
--- NOTE | 2020-02-26 02:00 | NUR ---
NURSE NOTES: Sleeping off and on . Denies pain or discomfort. [place] and cranberry juice given per request.
[2020-02-26] MEDS: ceFAZolin sod 1 GM in D5W 55 ML IVPB SCH ×3 (03:21→20:17)
--- NOTE | 2020-02-26 06:00 | NUR ---
NURSE NOTES: Condition unchanged. VSS. Afebrile. Denies pain or discomfort. SR on seismology teacher.
[2020-02-26 06:39] LABS: HEMATOCRIT 33.3 % (42.0-52.0); HEMOGLOBIN 10.5 G/DL (14.2-18.0); MEAN CORPUSCULAR VOLUME 99 FL (80-99); PLATELET COUNT 76 K/UL (150-450); RED BLOOD COUNT 3.37 M/UL (4.70-6.10); RED CELL DISTRIBUTION WIDTH 15.6 % (11.6-14.8); WHITE BLOOD COUNT 5.8 K/UL (4.8-10.8)
[2020-02-26 07:07] LABS: BLOOD UREA NITROGEN 21 mg/dL (7-18); CHLORIDE 100 MMOL/L (98-107); CREATININE 1.5 MG/DL (0.55-1.30); SODIUM 141 MMOL/L (136-145)
[2020-02-26 07:21] LABS: CARBON DIOXIDE 39 MMOL/L (21-32)
--- NOTE | 2020-02-26 07:30 | NUR ---
NURSE HAND-OFF REPORT: Latest Vital Signs: Temperature 97.9 , Pulse 77 , B/P 101 /67 , Respiratory Rate 19 , O2 SAT 93 , Nasal Cannula, O2 Flow Rate 5.0 . Vital Sign Comment: EKG Rhythm: Sinus Rhythm Rhythm change?: N MD Notified?: MD Response: Latest Farooq Fall Score: 35 Fall Risk: Medium Risk Safety Measures: Call light Within Reach, Bed Alarm Zone 1, Side Rails Side Rails x2, Bed position Low and Locked. Fall Precautions: Yellow Gown Door Sign Patient Fall Education Report given to GENTRY Lemons.
--- NOTE | 2020-02-26 08:00 | NUR ---
NURSE NOTES: Pt was assessed after receiving change of shift report from Balaji RINALDI. Pt is awake, alert, oriented x4, on 5L of oxygen via nasal cannula, refuses simple face mask, currently at 100% O2Sat. NSR on quality assurance monitor final, HR 80, pt is on Lasix drip at 10mg/hr, infusing via peripheral IV access, left hand #22G. 2nd peripheral IV access present on right FA #22G, saline locked, patent/intact. Extremities are warm to touch. Temp 98.3F axillary. Pt uses urinal at bedside, output of clear/yellow urine. Left upper chest incisional/scar, dry/intact, slightly warm to touch. Pt is refusing to allow ice pack on site, states "I don't want it!". Scrotal edema. HOB at high hair's, bed locked, three side rails up, and call light within reach. Will continue with plan of care.
[2020-02-26] MEDS: Lisinopril 2.5mg tab ORAL SCH (09:00)
[2020-02-26] MEDS: Spironolactone 25mg tab ORAL SCH (09:11)
[2020-02-26] MEDS: Wixela 250/50 Inhaler - 60 dose INH SCH ×2 (09:11→20:22)
[2020-02-26] MEDS: Aspirin EC 81mg tab ORAL SCH (09:11)
[2020-02-26] MEDS: Cyclobenzaprine 10mg Tab ORAL SCH (09:11)
[2020-02-26] MEDS: Allopurinol 100mg Tab ORAL SCH (09:12)
--- NOTE | 2020-02-26 10:00 | NUR ---
NURSE NOTES: AM meds were administered with the exception of Lisinopril due to hypotension. Pt consumed 100% of breakfast meal. Pt reports slight soreness at incision site, which is covered with dressing, dry/intact. Refuses to allow ice packs on incision site.
--- NOTE | 2020-02-26 10:09 | General Progress Note ---
Subjective Allergies: Coded Allergies: SIMVASTATIN (Verified Allergy, Unknown, 07/03/19) Uncoded Allergies: STATINS (Allergy, Unknown, 08/13/19) Subjective doing better went for icd , develop ac resp distress, admit to icu sitting bedside Objective Last 24 Hour Vital Signs Date Time Temp Pulse Resp B/P (MAP) Pulse Ox O2 Delivery O2 Flow Rate FiO2 02/26/20 09:11 98 113/67 02/26/20 09:00 101/60 02/26/20 06:00 97.9 77 19 101/67 (78) 93 02/26/20 05:00 91 20 106/84 (91) 92 02/26/20 04:00 Nasal Cannula 5.0 02/26/20 04:00 85 02/26/20 04:00 113 28 145/83 (103) 96 02/26/20 03:00 75 27 110/88 (95) 94 02/26/20 02:00 101 29 89 02/26/20 01:00 87 15 131/82 (98) 02/26/20 00:00 Nasal Cannula 5.0 02/26/20 00:00 98.1 94 32 114/85 (95) 02/26/20 00:00 99 02/25/20 23:00 91 27 90 02/25/20 22:00 88 25 119/89 (99) 83 02/25/20 21:32 94 18 97 Nasal Cannula 5.0 40 02/25/20 21:32 111 130/77 02/25/20 21:32 Nasal Cannula 5.0 40 02/25/20 21:00 106 25 125/75 (92) 95 02/25/20 20:00 98.8 82 29 113/77 (89) 93 02/25/20 20:00 Nasal Cannula 5.0 02/25/20 19:05 97 Nasal Cannula 5.0 40 02/25/20 19:00 111 27 130/77 (94) 97 02/25/20 18:00 100 28 143/80 (101) 97 02/25/20 17:52 95 28 100 02/25/20 17:00 95 31 125/92 (103) 100 02/25/20 17:00 103 24 100 02/25/20 16:00 97 02/25/20 16:00 98.2 102 28 133/93 (106) 93 02/25/20 16:00 Nasal Cannula 5.0 02/25/20 14:30 98.6 91 25 132/87 (102) 93 02/25/20 13:56 97.2 98 28 148/96 96 Simple Mask 6 02/25/20 13:50 103 30 141/106 97 Simple Mask 6 02/25/20 13:40 105 32 151/104 95 Simple Mask 6 02/25/20 13:30 106 29 151/110 96 Simple Mask 6 02/25/20 13:25 108 28 144/108 97 Simple Mask 6 02/25/20 13:22 97.3 113 26 145/101 95 Simple Mask 6 02/25/20 13:22 113 20 97 02/25/20 12:00 97.8 94 20 135/72 (93) 97 Intake and Output 02/25/20 02/26/20 19:00 07:00 Intake Total 676 ml 700 ml Output Total 2700 ml 3300 ml Balance -2024 ml -2600 ml Intake Oral 300 ml 480 ml IV Total 376 ml 220 ml Output Urine Total 2650 ml 3300 ml Estimated Blood Loss 50 ml Laboratory Tests 02/25/20 16:20: White Blood Count 6.8, Red Blood Count 3.40L, Hemoglobin 10.8L, Hematocrit 36.1L , Mean Corpuscular Volume 106H, Mean Corpuscular Hemoglobin 31.7H, Mean Corpuscular Hemoglobin Concent 29.8L, Red Cell Distribution Width 17.0H, Platelet Count 81L, Mean Platelet Volume 9.6, Neutrophils (%) (Auto) , Lymphocytes (%) (Auto) , Monocytes (%) (Auto) , Eosinophils (%) (Auto) , Basophils (%) (Auto) , Differential Total Cells Counted 100, Neutrophils % (Manual) 80H, Lymphocytes % (Manual) 1L, Monocytes % (Manual) 18H, Eosinophils % (Manual) 1, Basophils % (Manual) 0, Band Neutrophils 0, Platelet Estimate DecreasedL, Platelet Morphology Normal, Hypochromasia 1+, Anisocytosis 1+, Macrocytosis 1+, Stomatocytes 1+, Prothrombin Time 12.8H, Prothromb Time International Ratio 1.2H, Sodium Level 142, Potassium Level 4.8, Chloride Level 102, Carbon Dioxide Level 36H, Blood Urea Nitrogen 20H, Creatinine 1.4H, Estimat Glomerular Filtration Rate > 60, Glucose Level 92, Calcium Level 9.3 02/26/20 05:10: White Blood Count 5.8, Red Blood Count 3.37L, Hemoglobin 10.5L, Hematocrit 33.3L , Mean Corpuscular Volume 99, Mean Corpuscular Hemoglobin 31.2H, Mean Corpuscular Hemoglobin Concent 31.6L, Red Cell Distribution Width 15.6H, Platelet Count 76L, Mean Platelet Volume 10.8H, Neutrophils (%) (Auto) , Lymphocytes (%) (Auto) , Monocytes (%) (Auto) , Eosinophils (%) (Auto) , Basophils (%) (Auto) , Neutrophils % (Manual) [Pending], Lymphocytes % (Manual) [Pending], Platelet Estimate [Pending], Platelet Morphology [Pending], Sodium Level 141, Potassium Level 4.0, Chloride Level 100, Carbon Dioxide Level 39H, Blood Urea Nitrogen 21H, Creatinine 1.5H, Estimat Glomerular Filtration Rate 59.4, Glucose Level 116H, Calcium Level 9.0, Pro-B-Type Natriuretic Peptide 7240H, Digoxin Level < 0.2L Height (Feet): 5 Height (Inches): 6.00 Weight (Pounds): 234 General Appearance: alert EENT: PERRL/EOMI Neck: supple Cardiovascular: regular rhythm Respiratory/Chest: expiratory wheezing Abdomen: non tender, soft Extremities: non-tender Edema: trace edema Neurologic: oriented x 3 Skin: warm/dry Assessment/Plan Status: doing well, progressing Assessment/Plan: ac resp distress chf acs cm muscle spasm chronic pain neck and back obesity recomended icd cont medical tx add ambien for insomania fluid and salt restriction pt WANTS SECOND OPINION for icd placement dr rodriguez for consult pt agrred for icd todya consider pulmo consult monitor in icu wound care Jimenez Cardoza MD Feb 26, 2020 10:09
--- NOTE | 2020-02-26 12:00 | NUR ---
NURSE NOTES: Pt remains on Lasix drip at 10mg/hr, heart rate is fluctuating from 80-90. Remains afebrile. Consumed 100% of lunch meal. Denies any pain or discomfort at this time.
--- NOTE | 2020-02-26 14:00 | NUR ---
NURSE NOTES: VS remain stable while maintained on Lasix drip at 10mg/hr. High hair's position, while on 5L of oxygen via nasal cannula at 100% O2Sat.
--- NOTE | 2020-02-26 15:54 | NUR ---
HEALTH COMMUNICATIONS SPECIALIST NOTE Pt was [place] [facility] [place]-12/14/19. Pt presents as A&O4x. Pt is currently homeless, staying at [facility] in [place], [place]. PT shares that he was recently discharged from [facility] in [place]. Pt receives SSI and reports he will have income available for this month once he picks up his card from office. PT uses tobacco and denies ETOH/substance abuse. Pt declined counseling/tx intervention on substance abuse. Pt denies having mental illness. Pt reports being ambulatory w/ DMEs and independent w/ ADLs and IADLs. PT does not have any children. Pt's emergency contact is his sister, Monica Cowan [phone]. SW and pt explored possible placement options including board and cares and independent living facilities. However, pt declined a placement assistance stating "I will get my own apartment. I will have enough money once I get my card." SW attempted to discuss more feasible placement options. However, pt declined that he will go to office to continuous pickling line pickler his card upon DC. SW explained negative ramification of unlicensed facilities/self-directing. PT verbalized understanding. Pt does not share any concerns/needs at this time. SW encouraged pt to verbalize his concerns/needs while IP. PT declined to receive community resource packet. Pt wishes to be discharged own resource to preferred location when he is medically cleared. Otherwise, SW will revisit pt and discuss dc plan depending on his medical clearance.
--- NOTE | 2020-02-26 16:30 | NUR ---
NURSE NOTES: Pt was seen by Dr. Kimble. aware that pt is refused the cold pack to be placed on incision site. Order was received to transfer pt to SDU. Charge nurse aware. Awaiting for bed assignment.
--- NOTE | 2020-02-26 17:28 | Cardiac Electrophysiology PN ---
Assessment/Plan Assessment/Plan 1. Elevated troponin. Due to renal failure. Ruled out [place] protocol His EKG showed sinus tachycardia PACs and lateral T-wave inversion. We will continue on Coreg and aspirin 2. Exacerbation of CHF in this patient with nonischemic cardiomyopathy, EF of 10% to 15%. On Coreg, lisinopril, Lasix drip, and Aldactone. 3. Recurrent long runs of ventricular tachycardia up to 24 beats on the previous admission. Has had multiple ( more than 10) runs of 10 to 18 beats of VT on this admission . S/P VVI [facility] Chris ICD implant yesterday and interrogated today that showed Nl Fx 4. History of atrial flutter, currently remains in sinus rhythm. 5. History of hypertension. Maximize heart failure therapy. 6. Morbid obesity. 7. Renal failure, creatinine 1.5. 8. History of Graves disease. ESDRAS RN Subjective Subjective In ICU on Lasix drip.. Diuresing well. S/P VVI [facility] Chris ICD implant 02/25/20 and was interrogated that showed Nl Fx Objective Last 24 Hour Vital Signs Date Time Temp Pulse Resp B/P (MAP) Pulse Ox O2 Delivery O2 Flow Rate FiO2 02/26/20 16:00 95 02/26/20 15:00 91 24 111/84 (93) 98 02/26/20 14:00 109 16 115/73 (87) 100 02/26/20 13:00 93 28 115/71 (86) 100 02/26/20 12:30 100 22 121/73 (89) 81 02/26/20 12:00 88 02/26/20 12:00 98.0 92 24 126/75 (92) 100 02/26/20 12:00 Nasal Cannula 5.0 02/26/20 11:00 95 26 91/47 (62) 97 02/26/20 10:30 95 28 102/59 (73) 98 02/26/20 10:00 86 28 122/77 (92) 99 02/26/20 09:30 81 23 117/77 (90) 100 02/26/20 09:11 98 113/67 02/26/20 09:00 102 23 113/61 (78) 98 02/26/20 09:00 101/60 02/26/20 08:30 102 29 85/67 (73) 95 02/26/20 08:00 Nasal Cannula 5.0 02/26/20 08:00 79 02/26/20 08:00 98.3 87 23 113/87 (96) 98 02/26/20 07:45 83 17 105/69 (81) 96 02/26/20 07:35 85 18 98 Nasal Cannula 5.0 40 02/26/20 07:35 98 Nasal Cannula 5.0 40 02/26/20 07:35 Nasal Cannula 5.0 40 02/26/20 07:30 91 16 103/64 (77) 95 02/26/20 07:15 88 17 100/70 (80) 96 02/26/20 07:00 89 20 104/75 (85) 98 02/26/20 06:00 97.9 77 19 101/67 (78) 93 02/26/20 05:00 91 20 106/84 (91) 92 02/26/20 04:00 Nasal Cannula 5.0 02/26/20 04:00 85 02/26/20 04:00 113 28 145/83 (103) 96 02/26/20 03:00 75 27 110/88 (95) 94 02/26/20 02:00 101 29 89 02/26/20 01:00 87 15 131/82 (98) 02/26/20 00:00 Nasal Cannula 5.0 02/26/20 00:00 98.1 94 32 114/85 (95) 02/26/20 00:00 99 02/25/20 23:00 91 27 90 02/25/20 22:00 88 25 119/89 (99) 83 02/25/20 21:32 94 18 97 Nasal Cannula 5.0 40 02/25/20 21:32 111 130/77 02/25/20 21:32 Nasal Cannula 5.0 40 02/25/20 21:00 106 25 125/75 (92) 95 02/25/20 20:00 98.8 82 29 113/77 (89) 93 02/25/20 20:00 Nasal Cannula 5.0 02/25/20 19:05 97 Nasal Cannula 5.0 40 02/25/20 19:00 111 27 130/77 (94) 97 02/25/20 18:00 100 28 143/80 (101) 97 02/25/20 17:52 95 28 100 Intake and Output 02/25/20 02/26/20 19:00 07:00 Intake Total 676 ml 700 ml Output Total 2700 ml 3500 ml Balance -2024 ml -2800 ml Intake Oral 300 ml 480 ml IV Total 376 ml 220 ml Output Urine Total 2650 ml 3500 ml Estimated Blood Loss 50 ml Laboratory Tests Test 02/26/20 05:10 White Blood Count 5.8 K/UL (4.8-10.8) Red Blood Count 3.37 M/UL (4.70-6.10) L Hemoglobin 10.5 G/DL (14.2-18.0) L Hematocrit 33.3 % (42.0-52.0) L Mean Corpuscular Volume 99 FL (80-99) Mean Corpuscular Hemoglobin 31.2 PG (27.0-31.0) H Mean Corpuscular Hemoglobin Concent 31.6 G/DL (32.0-36.0) L Red Cell Distribution Width 15.6 % (11.6-14.8) H Platelet Count 76 K/UL (150-450) L Mean Platelet Volume 10.8 FL (6.5-10.1) H Neutrophils (%) (Auto) % (45.0-75.0) Lymphocytes (%) (Auto) % (20.0-45.0) Monocytes (%) (Auto) % (1.0-10.0) Eosinophils (%) (Auto) % (0.0-3.0) Basophils (%) (Auto) % (0.0-2.0) Differential Total Cells Counted 100 Neutrophils % (Manual) 79 % (45-75) H Lymphocytes % (Manual) 8 % (20-45) L Monocytes % (Manual) 10 % (1-10) Eosinophils % (Manual) 2 % (0-3) Basophils % (Manual) 0 % (0-2) Band Neutrophils 1 % (0-8) Platelet Estimate Decreased L Platelet Morphology Normal Hypochromasia 1+ Anisocytosis 1+ Sodium Level 141 MMOL/L (136-145) Potassium Level 4.0 MMOL/L (3.5-5.1) Chloride Level 100 MMOL/L (98-107) Carbon Dioxide Level 39 MMOL/L (21-32) H Blood Urea Nitrogen 21 mg/dL (7-18) H Creatinine 1.5 MG/DL (0.55-1.30) H Estimat Glomerular Filtration Rate 59.4 mL/min (>60) Glucose Level 116 MG/DL (74-106) H Calcium Level 9.0 MG/DL (8.5-10.1) Pro-B-Type Natriuretic Peptide 7240 pg/mL (0-125) H Digoxin Level < 0.2 NG/ML (0.5-2.0) L Microbiology Date/Time Source Procedure Growth Status 02/24/20 10:14 Nasopharynx SARS-CoV-2 RdRp Gene Assay - Final Complete Objective HEAD AND NECK: Positive JVD. LUNGS: Decreased breath sounds. CARDIOVASCULAR: Regular S1 and S2 with no gallop. ICD left subclavian no hematoma or oozing ABDOMEN: Soft. EXTREMITIES: 2+ pitting edema and scrotal edema. Spenser Kimble MD Feb 26, 2020 17:28
--- NOTE | 2020-02-26 19:00 | NUR ---
TRANSFER TO FLOOR: Patient transferred to SDU via hospital bed, per MD order. Tele box was placed on pt. Hand-off transfer report given to Luciana RINALDI. Belongings and medications transferred with pt. Belonging's list was signed with the receiving nurse. VS remain in stable condition while pt is maintained on Lasix 10mg/hr. Endorsed plan of care.
--- NOTE | 2020-02-26 19:15 | NUR ---
NURSE NOTES: RECEIVED REPORT FROM GENTRY GALICIA. PATIENT TRANSFERRED FROM ICU TO [facility] PER MD ORDER; TRANSFERRED WITHOUT INCIDENT. AAOX4, VERBALLY RESPONSIVE AND ABLE TO MAKE NEEDS KNOWN. NO COMPLAINTS OF PAIN OR DISCOMFORT AT THIS TIME. BREATHING IS EVEN AND UNLABORED ON 5LPM VIA NC, NO S/SX OF DISTRESS. IV SITES LEFT HAND PATENT, INTACT, ASYMPTOMATIC WITH IV LASIX RUNNING PRESCRIBED; RFA PATENT, INTACT, ASYMPTOMATIC, AND SALINE-LOCKED. NOTED TO HAVE SURGICAL INCISION ON LEFT UPPER CHEST COVERED WITH DRESSING- NO BLEEDING NOTED AT SITE. FALL PRECAUTIONS IN PLACE. BED LOCKED AND IN LOWEST POSITION, SIDERAILS UP X 2. CALL LIGHT AND URINAL WITHIN REACH. WILL CONTINUE TO MONITOR.
--- NOTE | 2020-02-26 21:30 | NUR ---
NURSE NOTES: PATIENT REFUSED GARDNER CATHETER INSERTION, DESPITE BEING EDUCATED ON RISKS/BENEFITS, AND PURPOSE.
[2020-02-27] VITALS: BP 100/60
[2020-02-27] MEDS: Morphine Sulfate 2mg/ml Inj(IV/IM USE ONLY) IVP PRN ×3 (01:34→20:48)
[2020-02-27] MEDS: ceFAZolin sod 1 GM in D5W 55 ML IVPB SCH ×3 (03:27→20:38)
[2020-02-27 04:00] VITALS: BP 110/62
--- NOTE | 2020-02-27 07:20 | NUR ---
NURSE NOTES: RECEIVED REPORT FROM PHYLLIS MACHINE ATTENDANT. RECEIVED PT WITH HOB ELEVATED 45 DEGREE AWAKE AND ALERT DENIES CP OR SOB AT THIS THIS TIME.PT RECEIVING LASIX DRIP 10CC/HRS INFUSING WELL CONNECTED TO H.L ON LT HAND.PT USING O2 5l/m,ints via n/c , O2 SAT 96%.FULL BODY ASSESSMENT DONE.NO ACUTE DISTRESS NOTED AT THIS TIME. WILL CONT TO MONITOR.
--- NOTE | 2020-02-27 07:35 | NUR ---
NURSE HAND-OFF REPORT: Important Events on Shift: TRANSFER FROM ICU, NONCOMPLIANT WITH PLAN OF CARE Patient Status: STABLE Diet: REGULAR Pending Orders: N/A Pending Results/Labs:N/A Pending MD notification:N/A Latest Vital Signs: Temperature 98.1 , Pulse 96 , B/P 110 /62 , Respiratory Rate 20 , O2 SAT 99 , Nasal Cannula, O2 Flow Rate 5.0 . Vital Sign Comment: STABLE EKG Rhythm: Sinus Rhythm Rhythm change?: N MD Notified?: Ismael Kimble MD Response: No New Orders Received Latest Farooq Fall Score: 35 Fall Risk: Medium Risk Safety Measures: Call light Within Reach, Bed Alarm Zone 1, Side Rails Side Rails x2, Bed position Low and Locked. Fall Precautions: Yellow Gown Door Sign Patient Fall Education Report given to GENTRY CHOPRA.
[2020-02-27 08:00] VITALS: BP 115/55
[2020-02-27] MEDS: Wixela 250/50 Inhaler - 60 dose INH SCH ×2 (09:35→20:38)
[2020-02-27] MEDS: Aspirin EC 81mg tab ORAL SCH (10:27)
[2020-02-27] MEDS: Lisinopril 2.5mg tab ORAL SCH (10:27)
[2020-02-27] MEDS: Allopurinol 100mg Tab ORAL SCH (10:28)
[2020-02-27] MEDS: Spironolactone 25mg tab ORAL SCH (10:29)
[2020-02-27 12:00] VITALS: BP 101/67
--- NOTE | 2020-02-27 12:17 | General Progress Note ---
Subjective Date patient seen: Feb 27, 2020 Allergies: Coded Allergies: SIMVASTATIN (Verified Allergy, Unknown, 07/03/19) Uncoded Allergies: STATINS (Allergy, Unknown, 08/13/19) Subjective doing better went for icd , develop ac resp distress, admit to icu sitting bedside Objective Last 24 Hour Vital Signs Date Time Temp Pulse Resp B/P (MAP) Pulse Ox O2 Delivery O2 Flow Rate FiO2 02/27/20 12:00 97.3 78 18 101/67 (78) 97 02/27/20 12:00 Nasal Cannula 5.0 02/27/20 10:27 115/55 02/27/20 10:27 93 115/55 02/27/20 09:36 93 18 97 Nasal Cannula 4.0 36 02/27/20 09:35 97 18 99 Nasal Cannula 4.0 32 02/27/20 08:00 88 02/27/20 08:00 Nasal Cannula 5.0 02/27/20 08:00 98.1 98 18 115/55 (75) 99 02/27/20 07:44 98 Nasal Cannula 4.0 36 02/27/20 04:00 98.1 70 20 110/62 (78) 99 02/27/20 04:00 96 02/27/20 04:00 Nasal Cannula 5.0 02/27/20 00:00 98.2 95 20 100/60 (73) 99 02/27/20 00:00 99 02/27/20 00:00 Nasal Cannula 5.0 02/26/20 21:54 Nasal Cannula 02/26/20 21:54 Nasal Cannula 02/26/20 20:20 87 111/66 02/26/20 20:10 98 Nasal Cannula 5.0 40 02/26/20 20:00 Nasal Cannula 5.0 02/26/20 20:00 97.0 92 20 100/54 (69) 95 02/26/20 19:49 95 02/26/20 19:00 80 24 112/70 (84) 98 02/26/20 18:00 83 24 113/72 (86) 98 02/26/20 17:00 103 25 100/63 (75) 98 02/26/20 16:00 Nasal Cannula 5.0 02/26/20 16:00 95 02/26/20 16:00 93 23 113/72 (86) 98 02/26/20 15:00 91 24 111/84 (93) 98 02/26/20 14:00 109 16 115/73 (87) 100 02/26/20 13:00 93 28 115/71 (86) 100 02/26/20 12:30 100 22 121/73 (89) 81 Intake and Output 02/26/20 02/27/20 19:00 07:00 Intake Total 1310 ml 600 ml Output Total 3150 ml 4700 ml Balance -1840 ml -4100 ml Intake Oral 1090 ml 600 ml IV Total 220 ml Output Urine Total 3150 ml 4700 ml Height (Feet): 5 Height (Inches): 6.00 Weight (Pounds): 234 General Appearance: no apparent distress EENT: PERRL/EOMI Neck: supple Cardiovascular: regular rhythm Respiratory/Chest: expiratory wheezing Abdomen: soft, no organomegaly Extremities: non-tender Edema: trace edema Assessment/Plan Status: doing well, progressing Assessment/Plan: ac resp distress chf acs cm muscle spasm chronic pain neck and back obesity recomended icd cont medical tx add ambien for insomania fluid and salt restriction pt WANTS SECOND OPINION for icd placement dr rodriguez for consult wound care dc plan per [facility] Jimenez Caceres MD Feb 27, 2020 12:17
--- NOTE | 2020-02-27 13:16 | NUR ---
CASE MANAGEMENT: REVIEW SI: CHF . A-FLUTTER . V-TACH . ICD PLACEMENT 02/24 T 97.3 HR 78 RR 18 BP 115/55 SAT 97% NC/4L H/H 10.5/33.3 BUN 21 CR 1.5 BNP 7240 IS: ANCEF IV Q8HR LASIX GTT STEP DOWN UNIT STATUS DCP: PATIENT IS FROM HOME
--- NOTE | 2020-02-27 13:54 | Cardiac Electrophysiology PN ---
Assessment/Plan Assessment/Plan 1. Elevated troponin. Due to renal failure. Ruled out [place] protocol His EKG showed sinus tachycardia PACs and lateral T-wave inversion, on Coreg and aspirin 2. Exacerbation of CHF in this patient with nonischemic cardiomyopathy, EF of 10% to 15%. On Coreg, lisinopril, Lasix drip, and Aldactone. 3. Recurrent long runs of ventricular tachycardia up to 24 beats on the previous admission. Has had multiple ( more than 10) runs of 10 to 18 beats of VT on this admission . S/P VVI [employer] Chris ICD implant 02/25/20 and interrogated that showed Nl Fx 4. History of atrial flutter, currently remains in sinus rhythm. 5. History of hypertension. Maximize heart failure therapy. 6. Morbid obesity. 7. Renal failure, creatinine 1.5. 8. History of Graves disease. ESDRAS RN Subjective Subjective Transferred out of ICU on Lasix drip. S/P VVI [employer] Chris ICD implant 02/25/20 and was interrogated that showed Nl Fx Objective Last 24 Hour Vital Signs Date Time Temp Pulse Resp B/P (MAP) Pulse Ox O2 Delivery O2 Flow Rate FiO2 02/27/20 12:00 93 02/27/20 12:00 97.3 78 18 101/67 (78) 97 02/27/20 12:00 Nasal Cannula 5.0 02/27/20 10:27 115/55 02/27/20 10:27 93 115/55 02/27/20 09:36 93 18 97 Nasal Cannula 4.0 36 02/27/20 09:35 97 18 99 Nasal Cannula 4.0 32 02/27/20 08:00 88 02/27/20 08:00 Nasal Cannula 5.0 02/27/20 08:00 98.1 98 18 115/55 (75) 99 02/27/20 07:44 98 Nasal Cannula 4.0 36 02/27/20 04:00 98.1 70 20 110/62 (78) 99 02/27/20 04:00 96 02/27/20 04:00 Nasal Cannula 5.0 02/27/20 00:00 98.2 95 20 100/60 (73) 99 02/27/20 00:00 99 02/27/20 00:00 Nasal Cannula 5.0 02/26/20 21:54 Nasal Cannula 02/26/20 21:54 Nasal Cannula 02/26/20 20:20 87 111/66 02/26/20 20:10 98 Nasal Cannula 5.0 40 02/26/20 20:00 Nasal Cannula 5.0 02/26/20 20:00 97.0 92 20 100/54 (69) 95 02/26/20 19:49 95 02/26/20 19:00 80 24 112/70 (84) 98 02/26/20 18:00 83 24 113/72 (86) 98 02/26/20 17:00 103 25 100/63 (75) 98 02/26/20 16:00 Nasal Cannula 5.0 02/26/20 16:00 95 02/26/20 16:00 93 23 113/72 (86) 98 02/26/20 15:00 91 24 111/84 (93) 98 02/26/20 14:00 109 16 115/73 (87) 100 Intake and Output 02/26/20 02/27/20 19:00 07:00 Intake Total 1310 ml 600 ml Output Total 3150 ml 4700 ml Balance -1840 ml -4100 ml Intake Oral 1090 ml 600 ml IV Total 220 ml Output Urine Total 3150 ml 4700 ml Objective HEAD AND NECK: Positive JVD. LUNGS: Decreased breath sounds. CARDIOVASCULAR: Regular S1 and S2 with no gallop. ICD left subclavian no hematoma or oozing ABDOMEN: Soft. EXTREMITIES: 2+ pitting edema and scrotal edema. Spenser Kimble MD Feb 27, 2020 13:54
[2020-02-27 16:00] VITALS: BP 120/96
--- NOTE | 2020-02-27 18:16 | NUR ---
INSURANCE FAXED CLINICALS/REVIEW TO [facility] 02/22-02/26 FX [phone] Addendum: 02/27/20 at 1822 by Magdalena Shankar CM FX [phone]
--- NOTE | 2020-02-27 19:30 | NUR ---
5HAND-OFF: Report given to .PHYLLIS RINALDI.
--- NOTE | 2020-02-27 19:30 | NUR ---
NURSE NOTES: RECEIVED REPORT FROM GENTRY CHOPRA. PATIENT ASLEEP IN BED, EASILY AROUSABLE. NO COMPLAINTS OF PAIN OR DISCOMFORT AT THIS TIME, BUT IS REQUESTING TO BE DISCHARGED HOME TOMORROW- INFORMED PATIENT MD WILL BE MADE AWARE. BREATHING EVEN AND UNLABORED ON 5LPM VIA NC, NO S/SX OF DISTRESS NOTED AT THIS TIME. IV SITES ON LEFT HAND AND RFA PATENT, INTACT, AND ASYMPTOMATIC. FALL RISK IN PLACE- INFORMED PATIENT TO CALL FOR ASSISTANCE PRIOR TO GETTING OOB. BED LOCKED AND IN LOWEST POSITION, SIDERAILS UP X 2. CALL LIGHT AND URINAL WITHIN REACH. WILL CONTINUE TO MONITOR.
[2020-02-27 20:00] VITALS: BP 114/63
[2020-02-27] MEDS ORDERED: NS 275ml ONE (20:33)
[2020-02-27] MEDS ORDERED: Tubing IV Secondary IV ONE (20:33)
--- NOTE | 2020-02-27 21:00 | NUR ---
NURSE NOTES: UPON ASSESSMENT, PATIENT NOTED TO HAVE SOME SWELLING AT LEFT UPPER CHEST SURGICAL INCISION. PATIENT DENIES ANY PAIN OR TENDERNESS AT SITE. PATIENT REFUSED TO HAVE ICED PLACED ON IT. PER PATIENT, "IM OKAY WITH IT". WILL CONTINUE TO MONITOR PATIENT.
--- NOTE | 2020-02-27 21:00 | NUR ---
NURSE NOTES: PATIENT REFUSED TO HAVE COMPLETE BODY CHECK DONE. PATIENT ONLY ALLOWED FOR BILATERAL UPPER AND LOWER EXTREMITIES, TRUNK CHECKED. EXPLAINED TO PATIENT RISKS AND BENEFITS OF THOROUGH AND COMPLETE BODY/SKIN ASSESSMENT, BUT PATIENT STILL REFUSED.
--- NOTE | 2020-02-27 21:23 | NUR ---
NURSE NOTES: PATIENT REFUSES TO HAVE GARDNER CATHETER INSERTED ORDERED. PER PATIENT, GARDNER CATHETER IS NECESSARY FOR ACCURATE I&Os, PATIENT IS ON LASIX DRIP. PATIENT STILL REFUSES. WILL CONTINUE TO MONITOR.
[2020-02-28] VITALS (7 sets, daily range): BP systolic 90–137; BP diastolic 54–94
--- NOTE | 2020-02-28 00:20 | NUR ---
NURSE NOTES: PATIENT AWAKE, SITTING UP UP IN BED IN HIGH-BEDOLLA'S POSITION, WITH NO S/SX OF CARDIOPULMONARY DISTRESS. PATIENT IS EATING A SANDWICH AND TOLERATING WELL. PARTIAL LINEN CHANGED. PATIENT GIVEN TOWELS TO FOR SELF-BATH REQUESTED.
[2020-02-28] MEDS: Morphine Sulfate 2mg/ml Inj(IV/IM USE ONLY) IVP PRN ×3 (03:04→18:41)
[2020-02-28] MEDS: ceFAZolin sod 1 GM in D5W 55 ML IVPB SCH ×3 (03:05→20:19)
--- NOTE | 2020-02-28 04:45 | NUR ---
NURSE NOTES: PATIENT SEEN SITTING UP IN BED, WIPING SELF WITH HAND TOWELS. PATIENT DENIES HAVING ANY PAIN OR DISCOMFORT AT THIS TIME. BREATHING EVEN AND UNLABORED ON 5LPM VIA NC, NO S/SX OF DISTRESS NOTED. WILL CONTINUE TO MONITOR.
[2020-02-28 05:21] LABS: HEMATOCRIT 33.1 % (42.0-52.0); HEMOGLOBIN 10.8 G/DL (14.2-18.0); MEAN CORPUSCULAR VOLUME 96 FL (80-99); PLATELET COUNT 77 K/UL (150-450); RED BLOOD COUNT 3.45 M/UL (4.70-6.10); WHITE BLOOD COUNT 5.9 K/UL (4.8-10.8)
[2020-02-28 05:30] LABS: BLOOD UREA NITROGEN 21 mg/dL (7-18); CALCIUM 8.3 MG/DL (8.5-10.1); CHLORIDE 91 MMOL/L (98-107); CREATININE 1.4 MG/DL (0.55-1.30); POTASSIUM 3.3 MMOL/L (3.5-5.1); SODIUM 139 MMOL/L (136-145)
[2020-02-28 06:03] LABS: CARBON DIOXIDE > 45 MMOL/L (21-32)
--- NOTE | 2020-02-28 06:06 | NUR ---
NURSE NOTES: CONTACTED DR. ARANGO REGARDING CO2 LEVEL OF 45. AWAITING CALL BACK FOR ANY NEW ORDERS.
--- NOTE | 2020-02-28 07:12 | NUR ---
NURSE HAND-OFF REPORT: Important Events on Shift: PAIN MANAGEMENT, CO2 45 (AWAITING MD TO CALL BACK) Patient Status: STABLE Diet: REGULAR Pending Orders: N/A Pending Results/Labs:10/8 AM LABS Pending MD notification: INFORMED DR. ARANGO CO2 IS 45, AWAITING CALL BACK. Latest Vital Signs: Temperature 98.0 , Pulse 98 , B/P 107 /61 , Respiratory Rate 20 , O2 SAT 100 , Nasal Cannula, O2 Flow Rate 5.0 . Vital Sign Comment: STABLE EKG Rhythm: Sinus Rhythm Rhythm change?: N MD Notified?: Y -Dr Lamin ADORNO Response: No New Orders Received Latest Farooq Fall Score: 35 Fall Risk: Medium Risk Safety Measures: Call light Within Reach, Bed Alarm Zone 1, Side Rails Side Rails x2, Bed position Low and Locked. Fall Precautions: Yellow Gown Door Sign Patient Fall Education Report given to GENTRY BOYKIN.
--- NOTE | 2020-02-28 07:12 | NUR ---
NURSE NOTES: Received report GENTRY Rick patient awake pain better
--- NOTE | 2020-02-28 07:14 | General Progress Note ---
Subjective HEENT: Denies: no symptoms, eye pain, blurred vision, tearing, double vision, ear pain, ear discharge, nose pain, nose congestion, throat pain, throat swelling, mouth pain, mouth swelling, other Cardiovascular: Denies: no symptoms, chest pain, edema, irregular heart rate, lightheadedness, palpitations, syncope, other Respiratory: Denies: no symptoms, cough, orthopnea, shortness of breath, SOB with excertion, SOB at rest, sputum, stridor, wheezing, other Gastrointestinal/Abdominal: Denies: no symptoms, abdomen distended, abdominal pain, black stools, tarry stools, blood in stool, constipated, diarrhea, difficulty swallowing, nausea, poor appetite, poor fluid intake, rectal bleeding, vomiting, other Genitourinary: Denies: no symptoms, burning, discharge, frequency, flank pain, hematuria, incontinence, pain, urgency, other Neurologic/Psychiatric: Denies: no symptoms, anxiety, depressed, emotional problems, headache, numbness, paresthesia, pre-existing deficit, seizure, tingling, tremors, weakness, other Endocrine: Denies: no symptoms, excessive sweating, flushing, intolerance to cold, intolerance to heat, increased hunger, increased thirst, increased urine, unexplained weight gain, unexplained weight loss, other Hematologic/Lymphatic: Denies: no symptoms, anemia, easy bleeding, easy bruising, other Allergies: Coded Allergies: SIMVASTATIN (Verified Allergy, Unknown, 07/03/19) Uncoded Allergies: STATINS (Allergy, Unknown, 08/13/19) Subjective 02/27 is not having cp, out of icu, is in sdu, icd functioning Objective Last 24 Hour Vital Signs Date Time Temp Pulse Resp B/P (MAP) Pulse Ox O2 Delivery O2 Flow Rate FiO2 02/28/20 04:00 90 02/28/20 04:00 98.0 98 20 107/61 (76) 100 02/28/20 04:00 Nasal Cannula 5.0 02/28/20 00:00 90 02/28/20 00:00 Nasal Cannula 5.0 02/28/20 00:00 98.3 84 20 102/61 (75) 100 02/28/20 00:00 Nasal Cannula 5.0 02/27/20 21:18 98.4 02/27/20 20:39 93 114/72 02/27/20 20:00 Nasal Cannula 5.0 02/27/20 20:00 98.1 60 20 114/63 (80) 98 02/27/20 20:00 92 02/27/20 19:43 99 Nasal Cannula 4.0 36 02/27/20 16:00 98.4 70 17 120/96 (104) 98 02/27/20 16:00 91 02/27/20 16:00 Nasal Cannula 5.0 02/27/20 12:00 93 02/27/20 12:00 97.3 78 18 101/67 (78) 97 02/27/20 12:00 Nasal Cannula 5.0 02/27/20 10:27 115/55 02/27/20 10:27 93 115/55 02/27/20 09:36 93 18 97 Nasal Cannula 4.0 36 02/27/20 09:35 97 18 99 Nasal Cannula 4.0 32 02/27/20 08:00 88 02/27/20 08:00 Nasal Cannula 5.0 02/27/20 08:00 98.1 98 18 115/55 (75) 99 02/27/20 07:44 98 Nasal Cannula 4.0 36 Intake and Output 02/27/20 02/28/20 18:59 06:59 Intake Total 1235 ml 725.34 ml Output Total 400 ml 1850 ml Balance 835 ml -1124.66 ml Intake Oral 1050 ml 600 ml IV Total 185 ml 125.34 ml Output Urine Total 400 ml 1850 ml Laboratory Tests 02/28/20 03:00: White Blood Count 5.9, Red Blood Count 3.45L, Hemoglobin 10.8L, Hematocrit 33.1L , Mean Corpuscular Volume 96, Mean Corpuscular Hemoglobin 31.3H, Mean Corpuscular Hemoglobin Concent 32.5, Red Cell Distribution Width 15.0H, Platelet Count 77L, Mean Platelet Volume 8.9, Neutrophils (%) (Auto) , Lymphocytes (%) (Auto) , Monocytes (%) (Auto) , Eosinophils (%) (Auto) , Basophils (%) (Auto) , Sodium Level 139, Potassium Level 3.3L, Chloride Level 91L, Carbon Dioxide Level > 45*H, Blood Urea Nitrogen 21H, Creatinine 1.4H, Estimat Glomerular Filtration Rate > 60, Glucose Level 116H, Calcium Level 8.3L, Pro-B-Type Natriuretic Peptide 3374H Height (Feet): 5 Height (Inches): 6.00 Weight (Pounds): 234 Objective General Appearance: no apparent distress EENT: PERRL/EOMI Neck: supple Cardiovascular: regular rhythm Respiratory/Chest: expiratory wheezing Abdomen: soft, no organomegaly Extremities: non-tender Edema: trace edema Assessment/Plan Status: doing well, progressing Assessment/Plan: Status: doing well, progressing Assessment/Plan: ac resp distress chf acs cm muscle spasm chronic pain neck and back obesity recommended icd cont medical tx add ambien for insomania fluid and salt restriction wound care dc plan per cardic clearence also pulm Mihai Delacruz MD Feb 28, 2020 07:14
[2020-02-28] MEDS: Aspirin EC 81mg tab ORAL SCH (08:33)
[2020-02-28] MEDS: Spironolactone 25mg tab ORAL SCH (08:34)
[2020-02-28] MEDS: Lisinopril 2.5mg tab ORAL SCH (08:34)
[2020-02-28] MEDS: Allopurinol 100mg Tab ORAL SCH (08:36)
[2020-02-28] MEDS: Wixela 250/50 Inhaler - 60 dose INH SCH ×2 (09:34→20:48)
--- NOTE | 2020-02-28 09:53 | General Progress Note ---
Subjective Date patient seen: Feb 28, 2020 Time patient seen: 09:00 Allergies: Coded Allergies: SIMVASTATIN (Verified Allergy, Unknown, 07/03/19) Uncoded Allergies: STATINS (Allergy, Unknown, 08/13/19) Subjective doing better no c/o Objective Last 24 Hour Vital Signs Date Time Temp Pulse Resp B/P (MAP) Pulse Ox O2 Delivery O2 Flow Rate FiO2 02/28/20 09:34 93 18 96 Nasal Cannula 4.0 32 02/28/20 09:34 93 18 96 Nasal Cannula 4.0 36 02/28/20 08:34 124/94 02/28/20 08:34 93 124/94 02/28/20 08:00 98.9 93 20 124/94 (104) 96 02/28/20 07:30 96 Nasal Cannula 5.0 40 02/28/20 04:00 90 02/28/20 04:00 98.0 98 20 107/61 (76) 100 02/28/20 04:00 Nasal Cannula 5.0 02/28/20 00:00 90 02/28/20 00:00 Nasal Cannula 5.0 02/28/20 00:00 98.3 84 20 102/61 (75) 100 02/28/20 00:00 Nasal Cannula 5.0 02/27/20 21:18 98.4 02/27/20 20:39 93 114/72 02/27/20 20:00 Nasal Cannula 5.0 02/27/20 20:00 98.1 60 20 114/63 (80) 98 02/27/20 20:00 92 02/27/20 19:43 99 Nasal Cannula 4.0 36 02/27/20 16:00 98.4 70 17 120/96 (104) 98 02/27/20 16:00 91 02/27/20 16:00 Nasal Cannula 5.0 02/27/20 12:00 93 02/27/20 12:00 97.3 78 18 101/67 (78) 97 02/27/20 12:00 Nasal Cannula 5.0 02/27/20 10:27 115/55 02/27/20 10:27 93 115/55 Intake and Output 02/27/20 02/28/20 18:59 06:59 Intake Total 1235 ml 725.34 ml Output Total 400 ml 1850 ml Balance 835 ml -1124.66 ml Intake Oral 1050 ml 600 ml IV Total 185 ml 125.34 ml Output Urine Total 400 ml 1850 ml Laboratory Tests 02/28/20 03:00: White Blood Count 5.9, Red Blood Count 3.45L, Hemoglobin 10.8L, Hematocrit 33.1L , Mean Corpuscular Volume 96, Mean Corpuscular Hemoglobin 31.3H, Mean Corpuscular Hemoglobin Concent 32.5, Red Cell Distribution Width 15.0H, Platelet Count 77L, Mean Platelet Volume 8.9, Neutrophils (%) (Auto) , Lymphocytes (%) (Auto) , Monocytes (%) (Auto) , Eosinophils (%) (Auto) , Basophils (%) (Auto) , Sodium Level 139, Potassium Level 3.3L, Chloride Level 91L, Carbon Dioxide Level > 45*H, Blood Urea Nitrogen 21H, Creatinine 1.4H, Estimat Glomerular Filtration Rate > 60, Glucose Level 116H, Calcium Level 8.3L, Pro-B-Type Natriuretic Peptide 3374H Height (Feet): 5 Height (Inches): 6.00 Weight (Pounds): 234 General Appearance: alert, alert oriented x3 EENT: PERRL/EOMI Neck: supple Cardiovascular: regular rhythm Respiratory/Chest: normal breath sounds Abdomen: non tender, soft Extremities: non-tender Edema: trace edema Neurologic: science center display builder II-XII grossly normal Assessment/Plan Status: doing well, progressing Assessment/Plan: ac resp distress chf acs cm muscle spasm chronic pain neck and back obesity recomended icd cont medical tx add ambien for insomania fluid and salt restriction pt WANTS SECOND OPINION for icd placement dr rodriguez for consult wound care dc home this am scripts in chart, sunni for home visit and pt Jimenez Cardoza MD Feb 28, 2020 09:53
--- NOTE | 2020-02-28 12:55 | NUR ---
DISCHARGE PLANNING: NOTE CM S/W PT VIA TELEPHONE. PT DENIES BEING HOMELESS AND STATES HE STAYS AT THE [facility] [address] OF [facility] (UNABLE TO RECALL EXACT ADDRESS). PT IS OPEN TO HOME HX VISITS. PT DOES NOT HAVE A WORKING CELLPHONE NUMBER AT THIS TIME. PATIENT ENDORSED THAT HE WILL NEED A TAXI VOUCHER AND BUS TOKENS TO GET TO HIS LOCATION. HOME HEALTH ARRANGEMENTS TO BE MADE DC ORDER PENDING POSSIBLE ADDRESS: [id number] [place] [id number]
--- NOTE | 2020-02-28 13:09 | NUR ---
RD ASSESSMENT & RECOMMENDATIONS SEE CARE ACTIVITY FOR COMPLETE ASSESSMENT DAILY ESTIMATED NEEDS: Needs based on Cardiac, Obese 72kg abw 23-28 kcals/kg 9292-4026 total kcals 1-1.3 g protein/kg 72-94 g total protein Fluids per MD/ CHF dx + diuretics mL/kg NUTRITION DIAGNOSIS: Altered nutrition related lab values R/T CHF dx as evidenced by elev BNP (3374), on diuretics. CURRENT DIET:LOW NA PO DIET RECOMMENDATIONS: Maintain LOW NA/ texture as tolerated ADDITIONAL RECOMMENDATIONS: 1) Daily standing wt for accuracy: monitor trend Pt on lasix drip+ aldactone 2) Check lytes daily on diuretics, replete as needed 3) Monitor BGs closely w/ Prednisone. .
--- NOTE | 2020-02-28 14:13 | Diagnostic Imaging Report ---
Indication: Chest pain Technique: One view of the chest Comparison: 02/25/2020 Findings: The heart is markedly enlarged. There is a left chest AICD. There are questionable small bilateral pleural effusions. No definite interstitial congestion. Previously demonstrated hazy parenchymal opacities have improved Impression: Questionable bilateral pleural effusions Improved hazy parenchymal opacities, since previous day's exam
--- NOTE | 2020-02-28 15:11 | Cardiac Electrophysiology PN ---
Assessment/Plan Assessment/Plan 1. Elevated troponin. Due to renal failure. Ruled out CT protocol His EKG showed sinus tachycardia PACs and lateral T-wave inversion, on Coreg and aspirin 2. Exacerbation of CHF in this patient with nonischemic cardiomyopathy, EF of 10% to 15%. On Coreg, lisinopril, Lasix drip, and Aldactone. Change Lasix to 40 iv bid. BNP down from 7000 to 3000 3. Recurrent long runs of ventricular tachycardia up to 24 beats on the previous admission. Has had multiple ( more than 10) runs of 10 to 18 beats of VT on this admission . S/P VVI [employer] ICD implant 02/25/20 and interrogated that showed Nl Fx 4. History of atrial flutter, currently remains in sinus rhythm. 5. History of hypertension. Maximize heart failure therapy. 6. Morbid obesity. 7. Renal failure, creatinine 1.5. 8. History of Graves disease. 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 DC plan in am Subjective Subjective On Lasix drip. S/P VVI [employer] Chris ICD implant 02/25/20 and was interrogated that showed Nl Fx. Feeling better Objective Last 24 Hour Vital Signs Date Time Temp Pulse Resp B/P (MAP) Pulse Ox O2 Delivery O2 Flow Rate FiO2 02/28/20 09:34 93 18 96 Nasal Cannula 4.0 32 02/28/20 09:34 93 18 96 Nasal Cannula 4.0 36 02/28/20 08:34 124/94 02/28/20 08:34 93 124/94 02/28/20 08:00 98.9 93 20 124/94 (104) 96 02/28/20 07:30 96 Nasal Cannula 5.0 40 02/28/20 04:00 90 02/28/20 04:00 98.0 98 20 107/61 (76) 100 02/28/20 04:00 Nasal Cannula 5.0 02/28/20 00:00 90 02/28/20 00:00 Nasal Cannula 5.0 02/28/20 00:00 98.3 84 20 102/61 (75) 100 02/28/20 00:00 Nasal Cannula 5.0 02/27/20 21:18 98.4 02/27/20 20:39 93 114/72 02/27/20 20:00 Nasal Cannula 5.0 02/27/20 20:00 98.1 60 20 114/63 (80) 98 02/27/20 20:00 92 02/27/20 19:43 99 Nasal Cannula 4.0 36 02/27/20 16:00 98.4 70 17 120/96 (104) 98 02/27/20 16:00 91 02/27/20 16:00 Nasal Cannula 5.0 Intake and Output 02/27/20 02/28/20 19:00 07:00 Intake Total 981.17 ml 719.17 ml Output Total 400 ml 1850 ml Balance 581.17 ml -1130.83 ml Intake Oral 800 ml 600 ml IV Total 181.17 ml 119.17 ml Output Urine Total 400 ml 1850 ml Laboratory Tests Test 02/28/20 03:00 White Blood Count 5.9 K/UL (4.8-10.8) Red Blood Count 3.45 M/UL (4.70-6.10) L Hemoglobin 10.8 G/DL (14.2-18.0) L Hematocrit 33.1 % (42.0-52.0) L Mean Corpuscular Volume 96 FL (80-99) Mean Corpuscular Hemoglobin 31.3 PG (27.0-31.0) H Mean Corpuscular Hemoglobin Concent 32.5 G/DL (32.0-36.0) Red Cell Distribution Width 15.0 % (11.6-14.8) H Platelet Count 77 K/UL (150-450) L Mean Platelet Volume 8.9 FL (6.5-10.1) Neutrophils (%) (Auto) % (45.0-75.0) Lymphocytes (%) (Auto) % (20.0-45.0) Monocytes (%) (Auto) % (1.0-10.0) Eosinophils (%) (Auto) % (0.0-3.0) Basophils (%) (Auto) % (0.0-2.0) Sodium Level 139 MMOL/L (136-145) Potassium Level 3.3 MMOL/L (3.5-5.1) L Chloride Level 91 MMOL/L (98-107) L Carbon Dioxide Level > 45 MMOL/L (21-32) *H Blood Urea Nitrogen 21 mg/dL (7-18) H Creatinine 1.4 MG/DL (0.55-1.30) H Estimat Glomerular Filtration Rate > 60 mL/min (>60) Glucose Level 116 MG/DL (74-106) H Calcium Level 8.3 MG/DL (8.5-10.1) L Pro-B-Type Natriuretic Peptide 3374 pg/mL (0-125) H Objective HEAD AND NECK: Positive JVD. LUNGS: Decreased breath sounds. CARDIOVASCULAR: Regular S1 and S2 with no gallop. ICD left subclavian no hematoma or oozing ABDOMEN: Soft. EXTREMITIES: 2+ pitting edema and scrotal edema. Spenser Kimble MD Feb 28, 2020 15:11
--- NOTE | 2020-02-28 19:27 | NUR ---
NURSE NOTES: Received report from GENTRY Cam, pt. in bed awake, no signs or symptoms of acute cardiac or respiratory distress noted, bed alarm on, side rails up x's 3 and safety brakes engaged, pt. appears to be resting comfortably in bed, call light within easy reach, pt. appears to be sating well on 5L NC- no distress noted- pt. appears to be resting comfortably watching television, urinal at bedside and within easy reach, pt. has AICD to left side chest area-appears to be swollen- per endorsement doctor aware. left wrist 18G IV intact and patent- SL, safety measures continued, will continue with plan of care.
--- NOTE | 2020-02-28 19:49 | NUR ---
HAND-OFF: Report given to []GENTRY Slater,patient awake ,pain getting better,on 5 L NC no respioratory distress,sitting up
--- NOTE | 2020-02-28 23:23 | NUR ---
NURSE NOTES: pt. asking for pain medication- B/P - offered pt. Tylenol with codeine- pt agreed- pulled out medication- pt. refused and stated he will wait till his b/p is in better range to get Morphine- explained risks and benefits of medication Morphine- with low b/p - pt. understands. Tylenol with codeine returned with Henrique Zheng RN as witness.
[2020-02-29] VITALS: BP 90/62
--- NOTE | 2020-02-29 | NUR ---
NURSE NOTES: pt. in bed resting -on phone- no signs of discomfort noted- pt. appears to be tolerating current NC settings- at 98%- will continue to monitor pt. and with plan of care. B/P sys still in 90's- offered pt. again Tylenol with codeine pt. continues to refuse medication as he prefers Morphine- explained risks of Morphine with low b/p - pt. states he understands- but does not want Tylenol with codeine now.
[2020-02-29] MEDS: ceFAZolin sod 1 GM in D5W 55 ML IVPB SCH ×3 (03:05→20:36)
[2020-02-29 04:00] VITALS: BP 97/59
--- NOTE | 2020-02-29 04:00 | NUR ---
NURSE NOTES: pt. in bed sleeping- appears to be sleeping comfortably- breathing unlabored and even- pt. remains stable and no signs of distress noted.
--- NOTE | 2020-02-29 06:55 | NUR ---
NURSE HAND-OFF REPORT: Important Events on Shift: none Patient Status: stable Diet: Regular Pending Orders: Pending Results/Labs: Pending MD notification: Latest Vital Signs: Temperature 98.0 , Pulse 81 , B/P 97 /59 , Respiratory Rate 18 , O2 SAT 100 , Nasal Cannula, O2 Flow Rate 5.0 . Vital Sign Comment: EKG Rhythm: Sinus Rhythm Rhythm change?: N MD Notified?: MD Response: Latest Farooq Fall Score: 35 Fall Risk: Medium Risk Safety Measures: Call light Within Reach, Bed Alarm Zone 1, Side Rails Side Rails x2, Bed position Low and Locked. Fall Precautions: Yellow Gown Door Sign Patient Fall Education Report given to Freda Cam - pt. remains stable and no signs of distress noted- aware to f/u on any abnormal am labs.
--- NOTE | 2020-02-29 07:02 | NUR ---
NURSE NOTES: Received report GENTRY Slater,patient eating,on 5 L nasal cannula,O2 dependent 5L at home Addendum: 02/29/20 at 0811 by Dorina Steinberg RN Ronna self MD
[2020-02-29 08:00] VITALS: BP 109/70
--- NOTE | 2020-02-29 08:12 | General Progress Note ---
Subjective Constitutional: Denies: no symptoms, chills, diaphoresis, fever, malaise, weakness, other HEENT: Denies: no symptoms, eye pain, blurred vision, tearing, double vision, ear pain, ear discharge, nose pain, nose congestion, throat pain, throat swelling, mouth pain, mouth swelling, other Cardiovascular: Denies: no symptoms, chest pain, edema, irregular heart rate, lightheadedness, palpitations, syncope, other Respiratory: Denies: no symptoms, cough, orthopnea, shortness of breath, SOB with excertion, SOB at rest, sputum, stridor, wheezing, other Genitourinary: Denies: no symptoms, burning, discharge, frequency, flank pain, hematuria, incontinence, pain, urgency, other Neurologic/Psychiatric: Denies: no symptoms, anxiety, depressed, emotional problems, headache, numbness, paresthesia, pre-existing deficit, seizure, tingling, tremors, weakness, other Endocrine: Denies: no symptoms, excessive sweating, flushing, intolerance to cold, intolerance to heat, increased hunger, increased thirst, increased urine, unexplained weight gain, unexplained weight loss, other Allergies: Coded Allergies: SIMVASTATIN (Verified Allergy, Unknown, 07/03/19) Uncoded Allergies: STATINS (Allergy, Unknown, 08/13/19) Subjective 02/27 is not having cp, out of icu, is in sdu, icd functioning 02/28 remains on lasix, potential dc today, no bleeding noted, labs reviewed Objective Last 24 Hour Vital Signs Date Time Temp Pulse Resp B/P (MAP) Pulse Ox O2 Delivery O2 Flow Rate FiO2 02/29/20 04:00 98.0 81 18 97/59 (72) 100 02/29/20 04:00 Nasal Cannula 5.0 Nasal Cannula 5.0 Nasal Cannula 5.0 02/29/20 04:00 88 02/29/20 00:00 Nasal Cannula 5.0 Nasal Cannula 5.0 Nasal Cannula 5.0 02/29/20 00:00 97.8 84 18 90/62 (71) 98 02/28/20 23:35 97.8 84 18 90/62 (71) 98 02/28/20 23:33 89 02/28/20 20:50 90 16 97 Nasal Cannula 4.0 36 02/28/20 20:49 90 16 97 Nasal Cannula 4.0 32 02/28/20 20:28 87 137/59 02/28/20 20:00 98.0 87 20 137/59 (85) 98 02/28/20 20:00 Nasal Cannula 5.0 Nasal Cannula 5.0 Nasal Cannula 5.0 02/28/20 19:32 87 02/28/20 19:02 97 Nasal Cannula 5.0 40 02/28/20 16:00 Nasal Cannula 5.0 Nasal Cannula 5.0 Nasal Cannula 5.0 02/28/20 16:00 98.0 94 18 130/80 (97) 100 02/28/20 15:30 85 02/28/20 12:00 97.0 84 18 129/54 (79) 100 02/28/20 12:00 Nasal Cannula 5.0 Nasal Cannula 5.0 Nasal Cannula 5.0 02/28/20 12:00 88 02/28/20 09:34 93 18 96 Nasal Cannula 4.0 32 02/28/20 09:34 93 18 96 Nasal Cannula 4.0 36 02/28/20 08:34 124/94 02/28/20 08:34 93 124/94 Intake and Output 02/28/20 02/29/20 19:00 07:00 Intake Total 1020 ml 220 ml Output Total 3000 ml 1525 ml Balance -1980 ml -1305 ml Intake Oral 1020 ml IV Total 220 ml Output Urine Total 3000 ml 1525 ml Height (Feet): 5 Height (Inches): 6.00 Weight (Pounds): 234 Objective General Appearance: no apparent distress EENT: PERRL/EOMI Neck: supple Cardiovascular: regular rhythm Respiratory/Chest: expiratory wheezing Abdomen: soft, no organomegaly Extremities: non-tender Edema: trace edema Assessment/Plan Status: doing well, progressing Assessment/Plan: Status: doing well, progressing Assessment/Plan: ac resp distress chf acs cm muscle spasm chronic pain neck and back obesity recommended icd cont medical tx add ambien for insomania fluid and salt restriction wound care dc plan per cardic clearence also pulm eval as needed cxr has improved [facility] wound care Mihai Jean MD Feb 29, 2020 08:12
[2020-02-29] MEDS: Allopurinol 100mg Tab ORAL SCH (08:28)
[2020-02-29] MEDS: Spironolactone 25mg tab ORAL SCH (08:29)
[2020-02-29] MEDS: Aspirin EC 81mg tab ORAL SCH (08:36)
[2020-02-29] MEDS: Lisinopril 2.5mg tab ORAL SCH ×2 (09:00→16:18)
[2020-02-29] MEDS: Wixela 250/50 Inhaler - 60 dose INH SCH ×2 (09:00→21:00)
--- NOTE | 2020-02-29 09:29 | NUR ---
CASE MANAGEMENT: REVIEW 02/29/2020 SI:A/C HEART FAILURE VS: T 97.7 HR 90 RR 20 B/P 109/70 SATS 98% ON 5L/NC LABS: NO LABS TODAY IS;COREG PO Q12H GABAPENTIN PO BID LASIX IV BID KDUR PO QD ASA PO QD LISINOPRIL PO QD PREDNISONE PO QD CEFAZOLIN IV Q8H ALDACTONE PO QD SDU
[2020-02-29 10:21] LABS: HEMATOCRIT 36.4 % (42.0-52.0); HEMOGLOBIN 11.9 G/DL (14.2-18.0); MEAN CORPUSCULAR VOLUME 95 FL (80-99); PLATELET COUNT 93 K/UL (150-450); RED BLOOD COUNT 3.84 M/UL (4.70-6.10); RED CELL DISTRIBUTION WIDTH 14.4 % (11.6-14.8); WHITE BLOOD COUNT 5.3 K/UL (4.8-10.8)
[2020-02-29 10:30] LABS: BLOOD UREA NITROGEN 28 mg/dL (7-18); CALCIUM 8.6 MG/DL (8.5-10.1); CHLORIDE 93 MMOL/L (98-107); CREATININE 1.4 MG/DL (0.55-1.30); POTASSIUM 3.3 MMOL/L (3.5-5.1)
[2020-02-29 10:37] LABS: SODIUM 137 MMOL/L (136-145)
[2020-02-29 10:38] LABS: ANION GAP 0 mmol/L (5-15); CARBON DIOXIDE 45 MMOL/L (21-32)
[2020-02-29 12:00] VITALS: BP 114/56
--- NOTE | 2020-02-29 15:45 | NUR ---
NURSE NOTES: Discharge instructions reviewed with patient ,verbalize understading,prescription from Dr. Hollingsworth given to patient,Taxi voucher provided to chart picker prescription,then he verbalize to take train to his home from there-[place],wants to eat dinner before discharge
[2020-02-29 16:00] VITALS: BP 103/59
[2020-02-29] MEDS: Tylenol #3 tab (300mg/30mg) ORAL PRN (16:01)
--- NOTE | 2020-02-29 16:08 | NUR ---
DISCHARGE PLANNING: NOTE CM S/W PT VIA TELEPHONE. PT STATES THAT HE RECEIVES OXYGEN DELIVERIES AND DOES NOT NEED O2 TO BE SET UP. CM OFFERED AMBULANCE TRANSPORTATION TO HIS MOTEL ROOM PT REFUSED. PT STATED THAT HE NEEDS TO GO TO THE SOCIAL SECURITY OFFICE. CM CALL PTs SISTER JARED GARCES T: [phone] SHE STATED TO PT DOES NOT LIVE WITH HER AND SHE DOES NOT ANY OF THE PTs SUPPLIES. JARED REQUESTED TO ONLY BE CONTACTED IN THE CASE OF AN EMERGENCY. CM AND GARDEN CENTER MANAGER S/W PT AT THE BEDSIDE. PT STATED THAT HE WILL TAKE A TAXI TO THE PHARMACY AND DOES NOT NEEDS ANY OTHER SERVICES BESIDES A TAXI VOUCHER.
--- NOTE | 2020-02-29 16:59 | Cardiac Electrophysiology PN ---
Assessment/Plan Assessment/Plan 1. Elevated troponin. Due to renal failure. Ruled out [place] protocol His EKG showed sinus tachycardia PACs and lateral T-wave inversion, on Coreg and aspirin 2. Exacerbation of CHF in this patient with nonischemic cardiomyopathy, EF of 10% to 15%. On Coreg, lisinopril, Lasix , and Aldactone. 3. Recurrent long runs of ventricular tachycardia up to 24 beats on the previous admission. Has had multiple ( more than 10) runs of 10 to 18 beats of VT on this admission . S/P VVI [employer] ICD implant 02/25/20 and interrogated that showed Nl Fx 4. History of atrial flutter, currently remains in sinus rhythm. 5. History of hypertension. Maximize heart failure therapy. 6. Morbid obesity. 7. Renal failure, creatinine 1.5. 8. History of Graves disease. ESDRAS RN DC today Subjective Subjective S/P VVI [employer] ICD implant 02/25/20 and was interrogated that showed Nl Fx. Feeling better. [facility]. Objective Last 24 Hour Vital Signs Date Time Temp Pulse Resp B/P (MAP) Pulse Ox O2 Delivery O2 Flow Rate FiO2 02/29/20 16:18 103/59 02/29/20 16:00 97.9 67 20 103/59 (74) 97 02/29/20 12:35 Nasal Cannula 5.0 Nasal Cannula 5.0 Nasal Cannula 5.0 02/29/20 12:00 98.8 64 22 114/56 (75) 98 02/29/20 11:41 89 02/29/20 09:00 Nasal Cannula 5.0 40 02/29/20 09:00 109/70 02/29/20 09:00 Nasal Cannula 5.0 40 02/29/20 08:30 Nasal Cannula 5.0 Nasal Cannula 5.0 Nasal Cannula 5.0 02/29/20 08:27 90 109/70 02/29/20 08:00 97.7 90 20 109/70 (83) 98 02/29/20 07:46 96 02/29/20 07:00 96 Nasal Cannula 5.0 40 02/29/20 04:00 98.0 81 18 97/59 (72) 100 02/29/20 04:00 Nasal Cannula 5.0 Nasal Cannula 5.0 Nasal Cannula 5.0 10/9/20 04:00 88 02/29/20 00:00 Nasal Cannula 5.0 Nasal Cannula 5.0 Nasal Cannula 5.0 02/29/20 00:00 97.8 84 18 90/62 (71) 98 02/28/20 23:35 97.8 84 18 90/62 (71) 98 02/28/20 23:33 89 02/28/20 20:50 90 16 97 Nasal Cannula 4.0 36 02/28/20 20:49 90 16 97 Nasal Cannula 4.0 32 02/28/20 20:28 87 137/59 02/28/20 20:00 98.0 87 20 137/59 (85) 98 02/28/20 20:00 Nasal Cannula 5.0 Nasal Cannula 5.0 Nasal Cannula 5.0 02/28/20 19:32 87 02/28/20 19:02 97 Nasal Cannula 5.0 40 Intake and Output 02/28/20 02/29/20 19:00 07:00 Intake Total 1020 ml 220 ml Output Total 3000 ml 1525 ml Balance -1980 ml -1305 ml Intake Oral 1020 ml IV Total 220 ml Output Urine Total 3000 ml 1525 ml Laboratory Tests Test 02/29/20 10:15 White Blood Count 5.3 K/UL (4.8-10.8) Red Blood Count 3.84 M/UL (4.70-6.10) L Hemoglobin 11.9 G/DL (14.2-18.0) L Hematocrit 36.4 % (42.0-52.0) L Mean Corpuscular Volume 95 FL (80-99) Mean Corpuscular Hemoglobin 30.9 PG (27.0-31.0) Mean Corpuscular Hemoglobin Concent 32.6 G/DL (32.0-36.0) Red Cell Distribution Width 14.4 % (11.6-14.8) Platelet Count 93 K/UL (150-450) L Mean Platelet Volume 7.5 FL (6.5-10.1) Neutrophils (%) (Auto) % (45.0-75.0) Lymphocytes (%) (Auto) % (20.0-45.0) Monocytes (%) (Auto) % (1.0-10.0) Eosinophils (%) (Auto) % (0.0-3.0) Basophils (%) (Auto) % (0.0-2.0) Differential Total Cells Counted 100 Neutrophils % (Manual) 68 % (45-75) Lymphocytes % (Manual) 23 % (20-45) Monocytes % (Manual) 6 % (1-10) Eosinophils % (Manual) 3 % (0-3) Basophils % (Manual) 0 % (0-2) Band Neutrophils 0 % (0-8) Platelet Estimate Decreased L Platelet Morphology Normal Red Blood Cell Morphology Normal Sodium Level 137 MMOL/L (136-145) Potassium Level 3.3 MMOL/L (3.5-5.1) L Chloride Level 93 MMOL/L (98-107) L Carbon Dioxide Level 45 MMOL/L (21-32) *H Anion Gap 0 mmol/L (5-15) L Blood Urea Nitrogen 28 mg/dL (7-18) H Creatinine 1.4 MG/DL (0.55-1.30) H Estimat Glomerular Filtration Rate > 60 mL/min (>60) Glucose Level 133 MG/DL (74-106) H Calcium Level 8.6 MG/DL (8.5-10.1) Objective HEAD AND NECK: Positive JVD. LUNGS: Decreased breath sounds. CARDIOVASCULAR: Regular S1 and S2 with no gallop. ICD left subclavian no hematoma or oozing ABDOMEN: Soft. EXTREMITIES: 2+ pitting edema and scrotal edema. Spenser Kimble MD Feb 29, 2020 16:59
--- NOTE | 2020-02-29 17:01 | NUR ---
NURSE NOTES: Low potasium,reported to Dr. Kimble And Dr. Cardoza-20Meq KCL given,pain relieving
--- NOTE | 2020-02-29 17:54 | NUR ---
NURSE NOTES: Patient refuse Lasix IV, will take at home
--- NOTE | 2020-02-29 18:57 | NUR ---
NURSE NOTES: Refused to go home ,verbalize his AICD site hurts,earlier he said he will go home after he eats but now refuse to go home Dr. Cardoza notified
--- NOTE | 2020-02-29 19:10 | NUR ---
NURSE HAND-OFF REPORT: Important Events on Shift:patient for discharge refuse to go home ,verbalize will appeal DC Patient Status: stable Diet: Pending Orders: none Pending Results/Labs:none Pending MD notification:none Latest Vital Signs: Temperature 97.9 , Pulse 89 , B/P 103 /59 , Respiratory Rate 20 , O2 SAT 97 , Nasal Cannula, O2 Flow Rate 5.0 . Vital Sign Comment: EKG Rhythm: Sinus Rhythm Rhythm change?: N MD Notified?: Y -Dr. Lamin ADORNO Response: No New Orders Received Latest Farooq Fall Score: 35 Fall Risk: Medium Risk Safety Measures: Call light Within Reach, Bed Alarm Zone 1, Side Rails Side Rails x2, Bed position Low and Locked. Fall Precautions: Yellow Gown Door Sign Patient Fall Education Report given to Aby
--- NOTE | 2020-02-29 19:14 | NUR ---
NURSE NOTES: Received report from Dorina RN, pt. in bed awake- on cell phone- no signs or symptoms of acute cardiac or respiratory distress noted, bed alarm on, side rails up x's 3 and safety brakes engaged, pt. appears to be resting comfortably in bed, call light within easy reach, pt. appears to be sating well on 5L NC- no distress noted-sating at 99%. pt. appears to be resting comfortably watching television, urinal at bedside and within easy reach, pt. has AICD to left side chest area-appears to be swollen- per endorsement doctor aware. left wrist 18G IV intact and patent- SL, HOB elevated- aspiration precautions observed, safety measures continued, will continue to monitor pt. and with plan of care. Pt. aware he is to be discharged but if refusing per hand off nurse Dorina- she has left ms for DR. Cardoza- awaiting for call back from doctor.
[2020-02-29 20:00] VITALS: BP 113/58
--- NOTE | 2020-02-29 20:12 | NUR ---
NURSE NOTES: per Alvin monitoring engineer from Telemetry-pt. had 12 beats of v-tach- pt. remains stable- will do EKG and notify Cardio doctor.
--- NOTE | 2020-02-29 22:05 | NUR ---
NURSE NOTES: DR. Kimble- aware of 12 beats of V-tach- only to notify him if pt. has shock from AICD. pt. remains stable. Doctor aware pt. refusing to be discharged.
[2020-03-01] VITALS: BP 99/54
[2020-03-01] MEDS: ceFAZolin sod 1 GM in D5W 55 ML IVPB SCH ×3 (03:19→20:43)
[2020-03-01 04:00] VITALS: BP 106/68
--- NOTE | 2020-03-01 05:30 | NUR ---
NURSE NOTES: per plant maintenance technician- Brianne- pt. showing 6 beats of V tach- pt. remains stable - asymptomatic-no distress noted, per earlier conversation with DR. Kimble does not need to notify him unless pt. is shocked with AICD. Will continue to monitor pt. and with plan of care.
--- NOTE | 2020-03-01 07:21 | NUR ---
NURSE HAND-OFF REPORT: Important Events on Shift:yes- 12 and 6 beats of V tach- doctor aware and only wants to be notified it pt. is shocked with AICD Patient Status: stable Diet: Regular diet Pending Orders: Pending Results/Labs: Pending MD notification: Latest Vital Signs: Temperature 98.0 , Pulse 111 , B/P 106 /68 , Respiratory Rate 20 , O2 SAT 100 , Nasal Cannula, O2 Flow Rate 5.0 . Vital Sign Comment: EKG Rhythm: 6 beats of V tach Rhythm change?: Ismael ADORNO Notified?: Ismael Kimble MD Response: No New Orders Received Latest Farooq Fall Score: 35 Fall Risk: Medium Risk Safety Measures: Call light Within Reach, Bed Alarm Zone 1, Side Rails Side Rails x2, Bed position Low and Locked. Fall Precautions: Yellow Gown Door Sign Patient Fall Education Report given to Freda Charles - pt. remains stable and no signs of distress noted- aware to f/u on any abnormal am labs.
--- NOTE | 2020-03-01 07:41 | NUR ---
NURSE NOTES: Pt awake/alert in bed, eating breakfast, breathing easily on 5 lpm hasal cannula, denies SOB but c/o slight aching pain in left shoulder at AICD surgical site. Vital signs stable with SR @ 84 with multiple PACs. IV access LW, flushed with 10 ml NS and locked. Pt has urinal at bedside. Bed left in low position, side rails up x 2 and call light left near pt's hand.
[2020-03-01 08:00] VITALS: BP 108/56
[2020-03-01] MEDS: Spironolactone 25mg tab ORAL SCH (08:50)
[2020-03-01] MEDS: Aspirin EC 81mg tab ORAL SCH (08:51)
[2020-03-01] MEDS: Allopurinol 100mg Tab ORAL SCH (08:51)
[2020-03-01] MEDS: Wixela 250/50 Inhaler - 60 dose INH SCH ×2 (09:28→21:00)
--- NOTE | 2020-03-01 09:29 | General Progress Note ---
Subjective Allergies: Coded Allergies: SIMVASTATIN (Verified Allergy, Unknown, 07/03/19) Uncoded Allergies: STATINS (Allergy, Unknown, 08/13/19) Subjective Subjective 02/27 is not having cp, out of icu, is in sdu, icd functioning 02/28 remains on lasix, potential dc today, no bleeding noted, labs reviewed 03/01: no acute distress. Objective Last 24 Hour Vital Signs Date Time Temp Pulse Resp B/P (MAP) Pulse Ox O2 Delivery O2 Flow Rate FiO2 03/01/20 08:51 66 108/56 03/01/20 08:00 Nasal Cannula 5.0 Nasal Cannula 5.0 Nasal Cannula 5.0 03/01/20 08:00 96.8 66 23 108/56 (73) 100 03/01/20 05:28 111 03/01/20 04:00 Nasal Cannula 5.0 Nasal Cannula 5.0 Nasal Cannula 5.0 03/01/20 04:00 98.0 85 20 106/68 (81) 100 03/01/20 03:27 93 03/01/20 00:00 Nasal Cannula 5.0 Nasal Cannula 5.0 Nasal Cannula 5.0 03/01/20 00:00 98.0 89 20 99/54 (69) 100 02/29/20 23:55 89 02/29/20 21:14 Nasal Cannula 5.0 40 02/29/20 21:14 Nasal Cannula 5.0 40 02/29/20 20:38 90 90/58 02/29/20 20:11 92 02/29/20 20:08 131 02/29/20 20:00 Nasal Cannula 5.0 Nasal Cannula 5.0 Nasal Cannula 5.0 02/29/20 20:00 98.1 66 20 113/58 (76) 98 02/29/20 19:29 96 Nasal Cannula 5.0 40 02/29/20 16:18 103/59 02/29/20 16:00 97.9 67 20 103/59 (74) 97 02/29/20 16:00 Nasal Cannula 5.0 Nasal Cannula 5.0 Nasal Cannula 5.0 02/29/20 16:00 89 02/29/20 12:35 Nasal Cannula 5.0 Nasal Cannula 5.0 Nasal Cannula 5.0 02/29/20 12:00 98.8 64 22 114/56 (75) 98 02/29/20 11:41 89 Intake and Output 02/29/20 03/01/20 19:00 07:00 Intake Total 910 ml 220 ml Output Total 1200 ml 1100 ml Balance -290 ml -880 ml Intake Oral 800 ml IV Total 110 ml 220 ml Output Urine Total 1200 ml 1100 ml Laboratory Tests 02/29/20 10:15: White Blood Count 5.3, Red Blood Count 3.84L, Hemoglobin 11.9L, Hematocrit 36.4L , Mean Corpuscular Volume 95, Mean Corpuscular Hemoglobin 30.9, Mean Corpuscular Hemoglobin Concent 32.6, Red Cell Distribution Width 14.4, Platelet Count 93L, Mean Platelet Volume 7.5, Neutrophils (%) (Auto) , Lymphocytes (%) (Auto) , Monocytes (%) (Auto) , Eosinophils (%) (Auto) , Basophils (%) (Auto) , Differential Total Cells Counted 100, Neutrophils % (Manual) 68, Lymphocytes % (Manual) 23, Monocytes % (Manual) 6, Eosinophils % (Manual) 3, Basophils % (Manual) 0, Band Neutrophils 0, Platelet Estimate DecreasedL, Platelet Morphology Normal, Red Blood Cell Morphology Normal, Sodium Level 137, Potassium Level 3.3L, Chloride Level 93L, Carbon Dioxide Level 45*H, Anion Gap 0L, Blood Urea Nitrogen 28H, Creatinine 1.4H, Estimat Glomerular Filtration Rate > 60, Glucose Level 133H, Calcium Level 8.6 Height (Feet): 5 Height (Inches): 6.00 Weight (Pounds): 234 Objective Objective General Appearance: no apparent distress EENT: PERRL/EOMI Neck: supple Cardiovascular: regular rhythm Respiratory/Chest: expiratory wheezing Abdomen: soft, no organomegaly Extremities: non-tender Edema: trace edema Assessment/Plan Status: doing well, progressing Assessment/Plan: Asessment and plan ac resp distress chf acs cm muscle spasm chronic pain neck and back obesity recommended icd cont medical tx add ambien for insomania fluid and salt restriction wound care dc plan per cardic clearence also pulm eval as needed cxr has improved [facility] wound care Tiff Stacy NP Mar 01, 2020 09:29
--- NOTE | 2020-03-01 10:45 | NUR ---
NURSE NOTES: Transferred patient with belongings, chart, medication and IV pole/pump to room 206-2. Pt awake/alert denies SOB but c/o severe pain and bleeding at surgical site. Incision over AICD intact with one drop of dried blood, no other sign of any bleeding noted. Slight bit of swelling to site, no redness or drainage noted. Pt is refusing oral pain medication. report given to GENTRY Macdonald.
--- NOTE | 2020-03-01 10:50 | NUR ---
SILVER SOLUTION MIXER NOTE PER RN ASIC VERIFICATION ENGINEER MISOOK, PATIENT REFUSING TO DC. REQUESTED FOR THIS CM TO SPEAK WITH PATIENT. S/W PATIENT AT BEDSIDE IN RE TO DC TODAY. PER PATIENT, HE IS HAVING PAIN AND DISCOMFORT AT PM SITE. STATED THAT AREA IS TENDER AND BLEEDING. PATIENT EXPOSED LEFT UPPER CHEST/SHOULDER AREA. NOTED WITH INCISION INTACT WITH NO ACTIVE BLEEDING. PATIENT REFUSING TO DC TODAY AND INFORMED THIS CM THAT HE WILL CONTACT [facility] TO FILE A MEDICARE APPEAL. THIS CM MADE CALL TO [facility] AT [phone]. LEFT REQUESTING CALL BACK.
--- NOTE | 2020-03-01 11:05 | NUR ---
NURSES NOTES: Received report from GENTRY Charles. Pt is A/O x4 and verbally responsive. Pt has 4L via nasal cannula and SATing @ 98%. Pt has mild aching pain in left shoulder at AICD surgical site. Pt has an IV access LW 20G flushed and patent. Pt has urinal at bedside. Bed left in low position, side rails up x 2. Cll light placed within reach. Will continue plan of care.
--- NOTE | 2020-03-01 11:37 | NUR ---
MEDICAL RECEPTION NOTE:MEDICARE APPEAL CALL MADE TO [facility]. SPOKE WITH CAR Tuesday03/01/2020 AT 11:15 AM MEDICARE APPEAL OF DISCHARGE FILED ON PATIENTS BEHALF [facility] [phone] APPEAL# [id number] APPEAL CASE NUMBER PROVIDED TO PATIENT AND PINA BALLARD
[2020-03-01 12:00] VITALS: BP 112/59
[2020-03-01] MEDS ORDERED: NS 275ml ONE (12:00)
--- NOTE | 2020-03-01 12:55 | NUR ---
MEDICARE APPEAL ALL CLINICALS HAVE BEEN SENT TO [facility] P: [phone] F: [phone] APPEAL CASE # [id number]
--- NOTE | 2020-03-01 15:59 | Cardiac Electrophysiology PN ---
Assessment/Plan Assessment/Plan 1. Elevated troponin. Due to renal failure. Ruled out [place] protocol His EKG showed sinus tachycardia PACs and lateral T-wave inversion, on Coreg and aspirin 2. Exacerbation of CHF in this patient with nonischemic cardiomyopathy, EF of 10% to 15%. On Coreg, lisinopril, Lasix , and Aldactone. 3. Recurrent long runs of ventricular tachycardia up to 24 beats on the previous admission. Has had multiple ( more than 10) runs of 10 to 18 beats of VT on this admission . S/P VVI [facility] Chris ICD implant 02/25/20 and interrogated that showed Nl Fx 4. History of atrial flutter, currently remains in sinus rhythm. 5. History of hypertension. Maximize heart failure therapy. 6. Morbid obesity. 7. Renal failure, creatinine 1.5. 8. History of Graves disease. ESDRAS RN OK to DC Subjective Subjective S/P VVI [facility] Chris ICD implant 02/25/20 and was interrogated that showed Nl Fx. Feeling better. Continues with short runs of VT but not long enough to get ICD therapy Objective Last 24 Hour Vital Signs Date Time Temp Pulse Resp B/P (MAP) Pulse Ox O2 Delivery O2 Flow Rate FiO2 03/01/20 12:00 80 03/01/20 12:00 97.5 68 20 112/59 (76) 100 03/01/20 09:33 88 16 100 Nasal Cannula 4.0 36 03/01/20 09:28 100 Nasal Cannula 4.0 36 03/01/20 09:08 85 16 100 Nasal Cannula 4.0 32 03/01/20 08:51 66 108/56 03/01/20 08:00 Nasal Cannula 5.0 Nasal Cannula 5.0 Nasal Cannula 5.0 03/01/20 08:00 96.8 66 23 108/56 (73) 100 03/01/20 05:28 111 03/01/20 04:00 Nasal Cannula 5.0 Nasal Cannula 5.0 Nasal Cannula 5.0 03/01/20 04:00 98.0 85 20 106/68 (81) 100 03/01/20 03:27 93 03/01/20 00:00 Nasal Cannula 5.0 Nasal Cannula 5.0 Nasal Cannula 5.0 03/01/20 00:00 98.0 89 20 99/54 (69) 100 02/29/20 23:55 89 02/29/20 21:14 Nasal Cannula 5.0 40 02/29/20 21:14 Nasal Cannula 5.0 40 02/29/20 20:38 90 90/58 02/29/20 20:11 92 02/29/20 20:08 131 02/29/20 20:00 Nasal Cannula 5.0 Nasal Cannula 5.0 Nasal Cannula 5.0 02/29/20 20:00 98.1 66 20 113/58 (76) 98 02/29/20 19:29 96 Nasal Cannula 5.0 40 02/29/20 16:18 103/59 02/29/20 16:00 97.9 67 20 103/59 (74) 97 02/29/20 16:00 Nasal Cannula 5.0 Nasal Cannula 5.0 Nasal Cannula 5.0 02/29/20 16:00 89 Intake and Output 02/29/20 03/01/20 19:00 07:00 Intake Total 910 ml 220 ml Output Total 1200 ml 1100 ml Balance -290 ml -880 ml Intake Oral 800 ml IV Total 110 ml 220 ml Output Urine Total 1200 ml 1100 ml Objective HEAD AND NECK: Positive JVD. LUNGS: Decreased breath sounds. CARDIOVASCULAR: Regular S1 and S2 with no gallop. ICD left subclavian no hematoma or oozing ABDOMEN: Soft. EXTREMITIES: 2+ pitting edema and scrotal edema. Spenser Kimble MD Mar 01, 2020 15:59
[2020-03-01 16:00] VITALS: BP 100/63
--- NOTE | 2020-03-01 19:24 | NUR ---
NURSE HAND-OFF REPORT: Important Events on Shift: Transferred to [facility] with Medicare appeal pending Patient Status: Stable Diet: Regular Pending Orders: Pending Results/Labs: Pending MD notification: Latest Vital Signs: Temperature 97.7 , Pulse 88 , B/P 100 /63 , Respiratory Rate 20 , O2 SAT 100 , Nasal Cannula, O2 Flow Rate 4.0 . Vital Sign Comment: EKG Rhythm: Sinus Rhythm Rhythm change?: N MD Notified?: Ismael Kimble MD Response: No New Orders Received Latest Farooq Fall Score: 35 Fall Risk: Medium Risk Safety Measures: Call light Within Reach, Bed Alarm Zone 1, Side Rails Side Rails x2, Bed position Low and Locked. Fall Precautions: Yellow Gown Door Sign Patient Fall Education Report given to Ginette.
--- NOTE | 2020-03-01 19:30 | NUR ---
NURSE NOTES: Received pt and report from GENTRY Macdonald. Observed pt resting in bed with both eyes open and on his cell phone. Pt is A/Ox4. monitor and storage bin tender is in placed; pt is NSR. IV site intact, asymptomatic, and patent. Bed is in the lowest position and locked. Call light and bedside table is within reach. No signs/symptoms of acute distress noted. Will continue plan of care.
[2020-03-01 20:00] VITALS: BP 115/75
[2020-03-01] MEDS: Tylenol #3 tab (300mg/30mg) ORAL PRN (22:23)
[2020-03-02] VITALS (7 sets, daily range): BP systolic 100–138; BP diastolic 62–86
[2020-03-02] MEDS: ceFAZolin sod 1 GM in D5W 55 ML IVPB SCH ×3 (04:34→21:09)
--- NOTE | 2020-03-02 06:56 | General Progress Note ---
Subjective HEENT: Denies: no symptoms, eye pain, blurred vision, tearing, double vision, ear pain, ear discharge, nose pain, nose congestion, throat pain, throat swelling, mouth pain, mouth swelling, other Gastrointestinal/Abdominal: Denies: no symptoms, abdomen distended, abdominal pain, black stools, tarry stools, blood in stool, constipated, diarrhea, difficulty swallowing, nausea, poor appetite, poor fluid intake, rectal bleeding, vomiting, other Genitourinary: Denies: no symptoms, burning, discharge, frequency, flank pain, hematuria, incontinence, pain, urgency, other Hematologic/Lymphatic: Denies: no symptoms, anemia, easy bleeding, easy bruising, other Allergies: Coded Allergies: SIMVASTATIN (Verified Allergy, Unknown, 07/03/19) Uncoded Allergies: STATINS (Allergy, Unknown, 08/13/19) Subjective 02/27 is not having cp, out of icu, is in sdu, icd functioning 02/28 remains on lasix, potential dc today, no bleeding noted, labs reviewed 03/01: no acute distress. 03/02: complaining of mild palpitations, bp per him better, no acute distress. Objective Last 24 Hour Vital Signs Date Time Temp Pulse Resp B/P (MAP) Pulse Ox O2 Delivery O2 Flow Rate FiO2 03/02/20 04:00 97.5 90 19 110/77 (88) 100 03/02/20 04:00 95 03/02/20 00:24 Nasal Cannula 5.0 40 03/02/20 00:24 Nasal Cannula 5.0 40 03/02/20 00:00 97.0 88 19 138/73 (94) 98 03/02/20 00:00 94 03/01/20 21:00 Nasal Cannula 4.0 Nasal Cannula 4.0 Nasal Cannula 4.0 03/01/20 20:44 98 115/75 03/01/20 20:00 97.4 98 21 115/75 (88) 98 03/01/20 20:00 96 03/01/20 19:39 100 Nasal Cannula 5.0 40 03/01/20 16:00 97.7 88 20 100/63 (75) 100 03/01/20 16:00 92 03/01/20 12:00 80 03/01/20 12:00 97.5 68 20 112/59 (76) 100 03/01/20 09:33 88 16 100 Nasal Cannula 4.0 36 03/01/20 09:28 100 Nasal Cannula 4.0 36 03/01/20 09:08 85 16 100 Nasal Cannula 4.0 32 03/01/20 08:51 66 108/56 03/01/20 08:00 Nasal Cannula 5.0 Nasal Cannula 5.0 Nasal Cannula 5.0 03/01/20 08:00 96.8 66 23 108/56 (73) 100 Intake and Output 03/01/20 03/02/20 19:00 07:00 Intake Total 800 ml Output Total 575 ml Balance 225 ml Intake Oral 800 ml Output Urine Total 575 ml # Bowel Movements 1 Height (Feet): 5 Height (Inches): 6.00 Weight (Pounds): 234 Objective General Appearance: no apparent distress EENT: PERRL/EOMI Neck: supple Cardiovascular: regular rhythm Respiratory/Chest: expiratory wheezing Abdomen: soft, no organomegaly Extremities: non-tender Edema: trace edema Assessment/Plan Status: doing well, progressing Assessment/Plan: Status: doing well, progressing Assessment/Plan: ac resp distress chf acs cm muscle spasm chronic pain neck and back obesity recommended icd cont medical tx add ambien for insomania fluid and salt restriction wound care dc plan per cardic clearence also pulm eval as needed cxr has improved [facility] wound care per cards Mihai Jean MD Mar 02, 2020 06:56
--- NOTE | 2020-03-02 07:38 | NUR ---
NURSE HAND-OFF REPORT: Important Events on Shift: Inserted new IV on pt's RT hand 22G. Patient Status: Stable Diet: Regular Pending Orders: N Pending Results/Labs: N Pending MD notification: N Latest Vital Signs: Temperature 97.5 , Pulse 95 , B/P 110 /77 , Respiratory Rate 19 , O2 SAT 100 , Nasal Cannula, O2 Flow Rate 5.0 . EKG Rhythm: Sinus Rhythm Rhythm change?: N Latest Farooq Fall Score: 35 Fall Risk: Medium Risk Safety Measures: Call light Within Reach, Bed Alarm Zone 1, Side Rails Side Rails x2, Bed position Low and Locked. Fall Precautions: Yellow Socks Yellow Gown Door Sign Patient Fall Education Report given to GENTRY Hunt.
[2020-03-02] MEDS: Wixela 250/50 Inhaler - 60 dose INH SCH ×4 (09:00→22:30)
[2020-03-02] MEDS: Lisinopril 2.5mg tab ORAL SCH (09:25)
[2020-03-02] MEDS: Allopurinol 100mg Tab ORAL SCH (09:25)
[2020-03-02] MEDS: Aspirin EC 81mg tab ORAL SCH (09:26)
[2020-03-02] MEDS: Spironolactone 25mg tab ORAL SCH (09:29)
[2020-03-02] MEDS: Morphine Sulfate 2mg/ml Inj(IV/IM USE ONLY) IVP PRN ×2 (10:41→15:10)
--- NOTE | 2020-03-02 17:42 | Cardiac Electrophysiology PN ---
Assessment/Plan Assessment/Plan 1. Elevated troponin. Due to renal failure. Ruled out [place] protocol His EKG showed sinus tachycardia PACs and lateral T-wave inversion, on Coreg and aspirin 2. Exacerbation of CHF in this patient with nonischemic cardiomyopathy, EF of 10% to 15%. On Coreg, lisinopril, Lasix , and Aldactone. 3. Recurrent long runs of ventricular tachycardia up to 24 beats on the previous admission. Has had multiple ( more than 10) runs of 10 to 18 beats of VT on this admission . S/P VVI [facility] Chris ICD implant 02/25/20 and interrogated that showed Nl Fx Incision was cleansed again and Steri-strips were applied 4. History of atrial flutter, currently remains in sinus rhythm. 5. History of hypertension. Maximize heart failure therapy. 6. Morbid obesity. 7. Renal failure, creatinine 1.5. 8. History of Graves disease. ESDRAS RN OK to DC Subjective Subjective S/P VVI [facility] Chris ICD implant 02/25/20 and was interrogated that showed Nl Fx. Continues with short runs of VT but not long enough to get ICD therapy Played with his ICD site and now the Dermabond over the incision is partially removed. Objective Last 24 Hour Vital Signs Date Time Temp Pulse Resp B/P (MAP) Pulse Ox O2 Delivery O2 Flow Rate FiO2 03/02/20 16:00 98.1 85 18 127/86 (100) 96 03/02/20 15:40 97.7 03/02/20 12:00 87 03/02/20 12:00 97.7 85 20 100/62 (75) 100 03/02/20 11:11 96.8 03/02/20 09:26 94 129/78 03/02/20 09:25 129/78 03/02/20 09:21 Nasal Cannula 5.0 40 03/02/20 09:21 Nasal Cannula 5.0 40 03/02/20 09:00 Nasal Cannula 4.0 Nasal Cannula 4.0 Nasal Cannula 4.0 03/02/20 08:00 90 03/02/20 08:00 96.8 94 20 129/78 (95) 100 03/02/20 07:01 97 Nasal Cannula 5.0 40 03/02/20 04:00 97.5 90 19 110/77 (88) 100 03/02/20 04:00 95 03/02/20 00:24 Nasal Cannula 5.0 40 03/02/20 00:24 Nasal Cannula 5.0 40 03/02/20 00:00 97.0 88 19 138/73 (94) 98 03/02/20 00:00 94 03/01/20 21:00 Nasal Cannula 4.0 Nasal Cannula 4.0 Nasal Cannula 4.0 03/01/20 20:44 98 115/75 03/01/20 20:00 97.4 98 21 115/75 (88) 98 03/01/20 20:00 96 03/01/20 19:39 100 Nasal Cannula 5.0 40 Intake and Output 03/01/20 03/02/20 19:00 07:00 Intake Total 800 ml 420 ml Output Total 575 ml 1000 ml Balance 225 ml -580 ml Intake Oral 800 ml 420 ml Output Urine Total 575 ml 1000 ml # Bowel Movements 1 Objective HEAD AND NECK: Positive JVD. LUNGS: Decreased breath sounds. CARDIOVASCULAR: Regular S1 and S2 with no gallop. ICD left subclavian no hematoma or oozing. The Dermabond over the incision is partially removed by patient ABDOMEN: Soft. EXTREMITIES: 2+ pitting edema and scrotal edema. Spenser Kimble MD Mar 02, 2020 17:42
--- NOTE | 2020-03-02 19:16 | NUR ---
NURSE HAND-OFF REPORT: Important Events on Shift:Patient had dressing over pacemaker replaced by Dr. Spenser Kimble. Patient on Medicare appeal. Patient Status: Stable Diet: Regular Pending Orders: N/A Pending Results/Labs:AM Labs Pending MD notification:N/A Latest Vital Signs: Temperature 98.1 , Pulse 93 , B/P 127 /86 , Respiratory Rate 18 , O2 SAT 96 , Nasal Cannula, O2 Flow Rate 5.0 . Vital Sign Comment: Stable EKG Rhythm: Sinus Rhythm Rhythm change?: N MD Notified?: Y -Dr. Lamin ADORNO Response: No New Orders Received Latest Farooq Fall Score: 35 Fall Risk: Medium Risk Safety Measures: Call light Within Reach, Bed Alarm Zone 1, Side Rails Side Rails x2, Bed position Low and Locked. Fall Precautions: Yellow Socks Yellow Gown Door Sign Patient Fall Education Report given to Tianna Perez RN.
--- NOTE | 2020-03-02 19:35 | NUR ---
NURSE NOTES: Received report from GENTRY Acosta. Patient is awake on bed, alert and oriented x 4. electronic device monitor is in place, shows sinus rhythm with no chest pain reported. On regular diet, instructed and amenable. On nasal cannula @ 4 Lpm with no shortness of breath at this time. Patient is ambulatory with steady gait. IV site is on right hand g-22 saline lock that is patent and intact. Safety measures are in place, bed in lowest and locked position, side rails up x 2, call light button and bedside table within reach, instructed to call for any assistance needed. Will continue plan of care.
[2020-03-02] MEDS: Tylenol #3 tab (300mg/30mg) ORAL PRN (21:10)
[2020-03-03] VITALS: BP 93/65
[2020-03-03 04:00] VITALS: BP 133/81
[2020-03-03] MEDS: ceFAZolin sod 1 GM in D5W 55 ML IVPB SCH ×2 (04:01→12:00)
[2020-03-03] MEDS: Tylenol #3 tab (300mg/30mg) ORAL PRN (04:09)
--- NOTE | 2020-03-03 06:43 | General Progress Note ---
Subjective Constitutional: Denies: no symptoms, chills, diaphoresis, fever, malaise, weakness, other HEENT: Denies: no symptoms, eye pain, blurred vision, tearing, double vision, ear pain, ear discharge, nose pain, nose congestion, throat pain, throat swelling, mouth pain, mouth swelling, other Cardiovascular: Denies: no symptoms, chest pain, edema, irregular heart rate, lightheadedness, palpitations, syncope, other Gastrointestinal/Abdominal: Denies: no symptoms, abdomen distended, abdominal pain, black stools, tarry stools, blood in stool, constipated, diarrhea, difficulty swallowing, nausea, poor appetite, poor fluid intake, rectal bleeding, vomiting, other Genitourinary: Denies: no symptoms, burning, discharge, frequency, flank pain, hematuria, incontinence, pain, urgency, other Neurologic/Psychiatric: Denies: no symptoms, anxiety, depressed, emotional problems, headache, numbness, paresthesia, pre-existing deficit, seizure, tingling, tremors, weakness, other Endocrine: Denies: no symptoms, excessive sweating, flushing, intolerance to cold, intolerance to heat, increased hunger, increased thirst, increased urine, unexplained weight gain, unexplained weight loss, other Hematologic/Lymphatic: Denies: no symptoms, anemia, easy bleeding, easy bruising, other Allergies: Coded Allergies: SIMVASTATIN (Verified Allergy, Unknown, 07/03/19) Uncoded Allergies: STATINS (Allergy, Unknown, 08/13/19) Subjective 02/27 is not having cp, out of icu, is in sdu, icd functioning 02/28 remains on lasix, potential dc today, no bleeding noted, labs reviewed 03/01: no acute distress. 03/02: complaining of mild palpitations, bp per him better, no acute distress. 03/03 no bleeding, meds noted, no night sweats, seen cards Objective Last 24 Hour Vital Signs Date Time Temp Pulse Resp B/P (MAP) Pulse Ox O2 Delivery O2 Flow Rate FiO2 03/03/20 04:00 97.5 94 20 133/81 (98) 100 03/03/20 04:00 99 03/03/20 00:00 96.9 89 22 93/65 (74) 98 03/03/20 00:00 93 03/02/20 22:36 74 18 96 Nasal Cannula 5.0 40 03/02/20 22:34 74 17 96 Nasal Cannula 5.0 40 03/02/20 21:09 87 104/74 03/02/20 21:00 Nasal Cannula 4.0 Nasal Cannula 4.0 Nasal Cannula 4.0 03/02/20 20:00 90 03/02/20 20:00 96.4 87 24 104/74 (84) 98 03/02/20 19:03 98 Nasal Cannula 5.0 40 03/02/20 16:00 98.1 85 18 127/86 (100) 96 03/02/20 16:00 93 03/02/20 15:40 97.7 03/02/20 12:00 87 03/02/20 12:00 97.7 85 20 100/62 (75) 100 03/02/20 11:11 96.8 03/02/20 09:26 94 129/78 03/02/20 09:25 129/78 03/02/20 09:21 Nasal Cannula 5.0 40 03/02/20 09:21 Nasal Cannula 5.0 40 03/02/20 09:00 Nasal Cannula 4.0 Nasal Cannula 4.0 Nasal Cannula 4.0 03/02/20 08:00 90 03/02/20 08:00 96.8 94 20 129/78 (95) 100 03/02/20 07:01 97 Nasal Cannula 5.0 40 Intake and Output 03/02/20 03/03/20 19:00 07:00 Intake Total 855 ml 900 ml Output Total 1550 ml 750 ml Balance -695 ml 150 ml Intake Oral 800 ml 900 ml IV Total 55 ml Output Urine Total 1550 ml 750 ml # Voids 3 Laboratory Tests 03/03/20 05:40: White Blood Count [Pending], Red Blood Count [Pending], Hemoglobin [Pending], Hematocrit [Pending], Mean Corpuscular Volume [Pending], Mean Corpuscular Hemoglobin [Pending], Mean Corpuscular Hemoglobin Concent [Pending], Red Cell Distribution Width [Pending], Platelet Count [Pending], Mean Platelet Volume [Pending], Neutrophils (%) (Auto) [Pending], Lymphocytes (%) (Auto) [Pending], Monocytes (%) (Auto) [Pending], Eosinophils (%) (Auto) [Pending], Basophils (%) (Auto) [Pending] Height (Feet): 5 Height (Inches): 6.00 Weight (Pounds): 234 Objective General Appearance: no apparent distress EENT: PERRL/EOMI Neck: supple Cardiovascular: regular rhythm Respiratory/Chest: expiratory wheezing Abdomen: soft, no organomegaly Extremities: non-tender Edema: trace edema Assessment/Plan Status: doing well, progressing Assessment/Plan: ac resp distress chf acs cm muscle spasm chronic pain neck and back obesity recommended icd cont medical tx add ambien for insomania fluid and salt restriction wound care dc plan per cardic clearence also pulm eval as needed cxr has improved on [facility] repletion [facility] wound care per cards Mihai Jean MD Mar 03, 2020 06:43
[2020-03-03 07:10] LABS: HEMATOCRIT 34.5 % (42.0-52.0); HEMOGLOBIN 11.3 G/DL (14.2-18.0); MEAN CORPUSCULAR VOLUME 95 FL (80-99); PLATELET COUNT 92 K/UL (150-450); RED BLOOD COUNT 3.62 M/UL (4.70-6.10); RED CELL DISTRIBUTION WIDTH 14.9 % (11.6-14.8); WHITE BLOOD COUNT 5.1 K/UL (4.8-10.8)
--- NOTE | 2020-03-03 07:30 | NUR ---
NURSE NOTES: Received pt from GENTRY Wynn, pt is awake and alert, pt has NC 4Lit, pt has intact iv access RH 22G SL. pt is on continues heart monitoring. pt is eating breakfast by observation. All needs attended, bed is locked and is in the lowest position, call light within easy reach. will continue to monitor.
--- NOTE | 2020-03-03 07:37 | NUR ---
NURSE HAND-OFF REPORT: Important Events on Shift: Patient has been resting well comfortable Patient Status: Patient is awake on bed, in stabel condition. Plan of care endorsed. Diet: Regular diet Pending Orders: none Pending Results/Labs:none Pending MD notification:none Latest Vital Signs: Temperature 97.5 , Pulse 94 , B/P 133 /81 , Respiratory Rate 20 , O2 SAT 100 , Nasal Cannula, O2 Flow Rate 5.0 . Vital Sign Comment: EKG Rhythm: Sinus Rhythm Rhythm change?: N MD Notified?: Ismael Kimble MD Response: No New Orders Received Latest Farooq Fall Score: 35 Fall Risk: Medium Risk Safety Measures: Call light Within Reach, Bed Alarm Zone 1, Side Rails Side Rails x2, Bed position Low and Locked. Fall Precautions: Yellow Socks Yellow Gown Door Sign Patient Fall Education Report given to GENTRY Schrader.
[2020-03-03 08:00] VITALS: BP 101/72
[2020-03-03] MEDS: Spironolactone 25mg tab ORAL SCH (08:15)
[2020-03-03] MEDS: Allopurinol 100mg Tab ORAL SCH (08:15)
[2020-03-03] MEDS: Lisinopril 2.5mg tab ORAL SCH (08:16)
[2020-03-03] MEDS: Aspirin EC 81mg tab ORAL SCH (08:16)
[2020-03-03] MEDS: Morphine Sulfate 2mg/ml Inj(IV/IM USE ONLY) IVP PRN (08:18)
[2020-03-03] MEDS: Wixela 250/50 Inhaler - 60 dose INH SCH (09:00)
--- NOTE | 2020-03-03 09:36 | NUR ---
DISCHARGE PATIENT HAS LOST HIS MEDICARE APPEAL [facility] AGREED WITH TERMINATION OF HOSPITAL SERVICES BENEFICIARY LIABILITY STARTS 03/03/20 APPEAL CASE # [id number]
[2020-03-03 12:00] VITALS: BP 105/96
--- NOTE | 2020-03-03 12:47 | Cardiac Electrophysiology PN ---
Assessment/Plan Assessment/Plan 1. Elevated troponin. Due to renal failure. Ruled out [place] protocol His EKG showed sinus tachycardia PACs and lateral T-wave inversion, on Coreg and aspirin 2. Exacerbation of CHF in this patient with nonischemic cardiomyopathy, EF of 10% to 15%. On Coreg, lisinopril, Lasix , and Aldactone. 3. Recurrent long runs of ventricular tachycardia up to 24 beats on the previous admission. Has had multiple ( more than 10) runs of 10 to 18 beats of VT on this admission . S/P VVI [facility] Chris ICD implant 02/25/20 and interrogated that showed Nl Fx Incision was cleansed and Steri-strips were applied 4. History of atrial flutter, currently remains in sinus rhythm. 5. History of hypertension. Maximize heart failure therapy. 6. Morbid obesity. 7. Renal failure, creatinine 1.5. 8. History of Graves disease. ESDRAS RN Subjective Subjective S/P VVI St Chris ICD implant 02/25/20 and was interrogated that showed Nl Fx. Continues with short runs of VT but not long enough to get ICD therapy Played with his ICD site and the Dermabond over the incision was partially removed New Steristrips applied. Objective Last 24 Hour Vital Signs Date Time Temp Pulse Resp B/P (MAP) Pulse Ox O2 Delivery O2 Flow Rate FiO2 03/03/20 12:00 99.1 94 22 105/96 (99) 97 03/03/20 09:15 98 Nasal Cannula 5.0 40 03/03/20 09:15 Nasal Cannula 5.0 40 03/03/20 09:15 Nasal Cannula 5.0 40 03/03/20 09:00 Nasal Cannula 4.0 Nasal Cannula 4.0 Nasal Cannula 4.0 Nasal Cannula 4.0 03/03/20 08:16 101/72 03/03/20 08:14 97 101/72 03/03/20 08:00 99.3 97 20 101/72 (82) 98 03/03/20 07:35 90 03/03/20 04:00 97.5 94 20 133/81 (98) 100 03/03/20 04:00 99 03/03/20 00:00 96.9 89 22 93/65 (74) 98 03/03/20 00:00 93 03/02/20 22:36 74 18 96 Nasal Cannula 5.0 40 03/02/20 22:34 74 17 96 Nasal Cannula 5.0 40 03/02/20 21:09 87 104/74 03/02/20 21:00 Nasal Cannula 4.0 Nasal Cannula 4.0 Nasal Cannula 4.0 03/02/20 20:00 90 03/02/20 20:00 96.4 87 24 104/74 (84) 98 03/02/20 19:03 98 Nasal Cannula 5.0 40 03/02/20 16:00 98.1 85 18 127/86 (100) 96 03/02/20 16:00 93 03/02/20 15:40 97.7 Intake and Output 03/02/20 03/03/20 19:00 07:00 Intake Total 855 ml 900 ml Output Total 1550 ml 750 ml Balance -695 ml 150 ml Intake Oral 800 ml 900 ml IV Total 55 ml Output Urine Total 1550 ml 750 ml # Voids 3 Laboratory Tests Test 03/03/20 05:40 White Blood Count 5.1 K/UL (4.8-10.8) Red Blood Count 3.62 M/UL (4.70-6.10) L Hemoglobin 11.3 G/DL (14.2-18.0) L Hematocrit 34.5 % (42.0-52.0) L Mean Corpuscular Volume 95 FL (80-99) Mean Corpuscular Hemoglobin 31.1 PG (27.0-31.0) H Mean Corpuscular Hemoglobin Concent 32.6 G/DL (32.0-36.0) Red Cell Distribution Width 14.9 % (11.6-14.8) H Platelet Count 92 K/UL (150-450) L Mean Platelet Volume 9.9 FL (6.5-10.1) Neutrophils (%) (Auto) % (45.0-75.0) Lymphocytes (%) (Auto) % (20.0-45.0) Monocytes (%) (Auto) % (1.0-10.0) Eosinophils (%) (Auto) % (0.0-3.0) Basophils (%) (Auto) % (0.0-2.0) Differential Total Cells Counted 100 Neutrophils % (Manual) 62 % (45-75) Lymphocytes % (Manual) 26 % (20-45) Monocytes % (Manual) 8 % (1-10) Eosinophils % (Manual) 4 % (0-3) H Basophils % (Manual) 0 % (0-2) Band Neutrophils 0 % (0-8) Platelet Estimate Decreased L Platelet Morphology Normal Red Blood Cell Morphology Normal Objective HEAD AND NECK: Positive JVD. LUNGS: Decreased breath sounds. CARDIOVASCULAR: Regular S1 and S2 with no gallop. ICD left subclavian no hematoma or oozing. The Dermabond over the incision is partially removed by patient ABDOMEN: Soft. EXTREMITIES: 2+ pitting edema and scrotal edema. Spenser Kimble MD Mar 03, 2020 12:47
--- NOTE | 2020-03-03 12:49 | NUR ---
NURSE NOTES: pt is stable, no stress noted. Report given to JEZ Mckeon. Endorsed to do discharge.
--- NOTE | 2020-03-03 13:11 | NUR ---
NURSE NOTES: RECEIVED PATIENT AND REPORT FROM [facility]. PATIENT IS FOR DISCHARGE. PATIENT IS HOMELESS AND STATED THAT HE STAYS IN [place] [address]. HE PROVIDED AN ADDRESS BUT FOR [address] WHERE HE PICKS UP HIS MEDICATIONS. PATIENT SPOKE WITH LLUVIA ON THE PHONE REGARDING HIS CONCERNS CM RELATED. PATIENT HAS A VOUCHER ON HAND FROM 03/01. PERSONAL BELONGINGS NOTED. THE ADDRESS ON THE [place] IS WHERE HE PICKS UP HIS MAIL ACCDG FROM PATIENT. WILL CONT TO MONITOR.
--- NOTE | 2020-03-03 13:50 | NUR ---
NURSE NOTES: PATIENT OFFERED CARE AND REFUSED. HE IS ABLE TO PERFORM ADL'S INDEPENDENTLY. ABLE TO MAKE NEEDS KNOWN. PATIENT IS NOW ON RA AND O2 SAT STABLE. GETTING READY FOR DISCHARGE. WILL CONT TO MONITOR.
--- NOTE | 2020-03-03 16:12 | NUR ---
NURSE NOTES: D/C HOME WITH INSTRUCTIONS. NO IV ACCESS. NO PIGGERY WORKER INPLACED. INSTABLE CONDITION.
--- NOTE | 2020-03-05 07:49 | Discharge Summary ---
Discharge Summary Discharge Summary _ DATE OF ADMISSION: 02/19/2020 DATE OF DISCHARGE: 03/03/2020 DISCHARGED BY: Dr. Cardoza REASON FOR ADMISSION: 54 years old male, with past medical history of severe cardiomyopathy with ejection fraction 10 to 15%, noncompliant with his medications, frequent flyer to different hospitals , presented with chief complaint of chest pain and shortness of breath. Chest pain started about an hour ago, worse with exertion, with radiation to his neck, 7 out of 10. Patient well known to be signed against medical advance at numerous times. Patient reported being in [place] earlier that day. Vital signs were stable. Laboratory work-up revealed no leukocytosis, mild anemia with hemoglobin 11.6 , hematocrit 35.9 , platelet counts 102. Troponin 0.072 , pro BNP 4353. EKG revealed sinus rhythm , no acute ischemic changes. BUN 25, creatinine 1.5. Stable electrolytes . Urinalysis revealed no evidence of urinary tract infection. Urine toxicology screen was negative. Chest x-ray demonstrated moderate to severe cardiomegaly. Pulmonary vascular congestion. Likely retrocardiac streaky airspace opacity. Patient presented with exacerbation of chronic heart failure and elevated troponin. Patient had multiple risk factor for ACS , but refused on numerous prior oc casion AICD. Patient admitted for further management. CONSULTANTS: mortar maker Dr. Courtney boatwright/oncologist Dr. Jean , psychiatrist [facility] COURSE: Patient admitted to telemetry floor. ardiologist closely followed. Repeated troponin x3 were negative. EKG revealed no acute ischemic changes. Patient was ruled out for acute myocardial infarction. Echocardiogram demonstrated ejection fraction of 20 to 25%. S evere global left ventricular hypokinesis, septum appeared akinetic. Left ventricular ejection fraction estimated to be 20 to 25%. Mild to moderate mitral regurgitation and severe tricuspid regurgitation. Moderately elevated left atrial pressure grade 2. Right ventricular systolic pressure of 68 consistent with severe pulmonary hypertension. Venous duplex bilateral lower extremity revealed no evidence of acute DVT. Patient developed respiratory distress and required transfer to ICU. Supplemental oxygen provided and titrated to keep pulse oximetry above 92%. Patient was diuresed via Lasix drip. Volumes and cardiorenal parameters were closely monitored. Patient was on antiplatelet therapy with aspirin and beta blockage. Guideline directed medical therapy for congestive heart failure provided wit diuretics: Lasix, Aldactone , Coreg and lisinopril. Pro BNP trended down, patient was followed up with CXR. Patient undergone on 02/24 single-chamber ICD implantation with programming during initial implant. ICD was interrogated and showed normal functioning. Steri-Strips applied. Follow-up chest x-ray revealed satisfactory pacemaker placement. No radiographic evidence of complications Pain management was addressed as needed. Patient remained in sinus rhythm. . Heart failure therapy was maximized. Patient was counseled on low-fat low-cholesterol diet. Renal parameters and electrolytes were closely monitored. Nephrotoxic's were avoided. Psychiatry seen and evaluated patient , and diagnosed patient with anxiety disorder. Patient started on SSRI. Anxiolytic were on board as needed. Reality orientation and supportive therapy provided. Patient was stable for discharge., Patient appealed decision to discharge. Patient lost his appeal. Patient subsequently was discharged home with home health services. FINAL DIAGNOSES: Elevated troponin -due to renal failure Nonischemic cardiomyopathy CHF exacerbation Acute respiratory distress Multiply runs of V. tach Status post VVI [facility] [employer] ICD implantation 02/24 History of atrial flutter Hypertension Morbid obesity Renal failure Anxiety disorder Obesity DISCHARGE MEDICATIONS: See Medication Reconciliation list. DISCHARGE INSTRUCTIONS: Patient was discharged home with home health services. Follow up with primary care provider in one week. I have been assigned to dictate discharge summary for this account. I was not involved in the patient's management. Hattie Fox NP Mar 05, 2020 07:49
--- NOTE | 2020-03-05 11:20 | NUR ---
INSURANCE DC SUMMARY FAXED TO [facility] [phone]
--- NOTE | 2020-03-05 14:01 | NUR ---
INSURANCE CLINICALS/REVIEW FAXED TO [facility] (02/27 -03/03) [facility] [phone]
== END 2020-03-03 16:12 | disposition other institution (70) | DRG 226 ==
LOC: EMR 05:57 → 2E 06:50 → EDBEDREQ 08:36 → 2E 02-21 06:43 → ICU 02-25 14:15 → 2W 02-26 18:41 → 2E 03-01 10:56
PROC: 02HK3KZ Insertion of Defibrillator Lead into Right Ventricle, Percutaneous Approach (ICD-10-PCS; principal; 2020-02-25 12:00)
PROC: 0JH608Z Insertion of Defibrillator Generator into Chest Subcutaneous Tissue and Fascia, Open Approach (ICD-10-PCS; principal; 2020-02-25 12:00)
DX: I13.0 Hypertensive heart and chronic kidney disease with heart failure and stage 1 through stage 4 chronic kidney disease, or unspecified chronic kidney disease (principal); I50.43 Acute on chronic combined systolic (congestive) and diastolic (congestive) heart failure; N17.1 Acute kidney failure with acute cortical necrosis; I47.2 Ventricular tachycardia; I42.0 Dilated cardiomyopathy; N18.2 Chronic kidney disease, stage 2 (mild); M62.838 Other muscle spasm; E66.01 Morbid (severe) obesity due to excess calories; Z68.31 Body mass index [BMI] 31.0-31.9, adult; G47.00 Insomnia, unspecified; Z91.14 Patient's other noncompliance with medication regimen; R06.03 Acute respiratory distress
CPT/HCPCS: 36415; 71045; 76000; 80048; 80053; 80061; 80162; 80307; 81003; 83880; 84439; 84443; 84484; 85007; 85025; 85610; 93005; 93306; 93970; 94003; 94150; 94640; 94664; 96374; 99285; J2250; J8499; U0002